=== PATIENT | female | born 1955 | race Caucasian/White ===

== ENCOUNTER 2019-03-22 12:30 | Inpatient (IN) | payer SELFPAY ==
[~2019-03-22] VITALS: Ht 157.5 cm; Wt 106.3 kg
[~2019-03-22 12:30] MED LIST: ADV1DS; ALB6.8IN; ALBU17AE3 IH; ALBU8.5H2 IH; AMLO5TAB2 PO; ASP325T; ASP81TEC PO; ATOR40TA; ATR20T; ATRV10T; BENZ200C25 PO; CITA-105 PO; CPR500T PO; CTLP20T PO; ESCI20TA2; ESCT10T; FISH OIL 1,2001 EAC1 PO; GLIP5TAB13 PO; HCT25T; HYOS0.1283 SL; IBUP-30 PO; INSASP10V; INSU100C4; INSU100V8; LANT; LEVO100T4; LEVO100T46; LEVO175T3 PO; LEVO200T39; LEVO500T2 PO; LEVO500T69 PO; LISI20TA2 PO; LISI40TA; LISI40TA PO; LORA0.5T34 PO; LRT10T; LSNP20T; LVT.1T; LVT.1T PO; METF-380 PO; MTR500T PO; MULT1TAB63 PO; NAPR-243 PO; NEBI5TAB8; OMEG-25 PO; OMG1KC PO; ONDA4TAB8 PO; PHEN200T27 PO; RSG4T; TRAM-21 PO; TRAM50TA2 PO; TRM50T PO
--- NOTE | 2019-03-22 12:40 | NUR ---
TO CT ACCOMPIED BY STAFF,
[2019-03-22 12:59] LABS: BASOPHILS # (AUTO) 0.1 10^3/uL (0.0-0.1); BASOPHILS % (AUTO) 1 % (0-10); EOSINOPHILS # (AUTO) 0.2 10^3/uL (0.0-0.3); EOSINOPHILS % (AUTO) 1 % (0-10); HEMATOCRIT 48 % (35-52); HEMOGLOBIN 16.5 G/DL (11.5-16.0); LYMPHOCYTES # (AUTO) 3.1 X 10^3 (1.0-4.0); LYMPHOCYTES % (AUTO) 18 % (12-44); MEAN CORPUSCULAR HEMOGLOBIN 29 PG (25-34); MEAN CORPUSCULAR HGB CONC 34 G/DL (32-36); MEAN CORPUSCULAR VOLUME 85 FL (80-99); MEAN PLATELET VOLUME 10.9 FL (7.4-10.4); MONOCYTES # (AUTO) 1.1 X 10^3 (0.0-1.0); MONOCYTES % (AUTO) 6 % (0-12); NEUTROPHILS % (AUTO) 74 % (42-75); PLATELET COUNT 409 10^3/uL (130-400); RED CELL DISTRIBUTION WIDTH 14.5 % (10.0-14.5); WHITE BLOOD COUNT 17.5 10^3/uL (4.3-11.0)
[2019-03-22] MEDS ORDERED: LABETALOL HCL 20 MG/4 ML VIAL IV ONE (13:00)
--- NOTE | 2019-03-22 13:02 | NUR ---
RETURN FROM CT
--- NOTE | 2019-03-22 13:02 | NUR ---
RETURN FROM CT.
--- NOTE | 2019-03-22 13:03 | Diagnostic Imaging Report ---
PROCEDURE: CT head wo r/o stroke. TECHNIQUE: Multiple contiguous axial images were obtained through the brain without the use of intravenous contrast. Auto Exposure Controls were utilized during the CT exam to meet ALARA standards for radiation dose reduction. INDICATION: Speech difficulty, stroke. COMPARISON: There is no previous study for comparison. FINDINGS: Ventricles and sulci are in the expected range. There is asymmetric low density within the deep white matter of both cerebral hemispheres which is most pronounced in the deep left frontal region. No geographic low density is seen to indicate territorial infarct. Low density is also seen adjacent to the right caudate nucleus. There is no evidence of hemorrhage. There is no abnormal mass effect or shift of midline structures. There is atherosclerotic calcification within distal internal carotid and vertebral arteries. The visualized paranasal sinuses are clear. IMPRESSION: No definite hemorrhage or other acute abnormality identified. Low density in the deep white matter of both hemispheres may be chronic in nature. MRI has greater sensitivity for ischemia in the acute setting. Dictated by: Dictated on workstation # [id number]
[2019-03-22 13:06] LABS: PROTHROMBIN TIME PATIENT 13.3 SEC (12.2-14.7)
[2019-03-22 13:10] LABS: ALANINE AMINOTRANSFERASE 22 U/L (0-55); ALBUMIN 4.5 GM/DL (3.2-4.5); ALKALINE PHOSPHATASE 100 U/L (40-136); BILIRUBIN,TOTAL 0.4 MG/DL (0.1-1.0); BUN/CREATININE RATIO 10; CALCIUM 9.7 MG/DL (8.5-10.1); CARBON DIOXIDE 26 MMOL/L (21-32); CHLORIDE 92 MMOL/L (98-107); CREATININE SERUM 1.13 MG/DL (0.60-1.30); GFR ESTIMATED 48; GLUCOSE 308 MG/DL (70-105); POTASSIUM 4.8 MMOL/L (3.6-5.0); SODIUM 130 MMOL/L (135-145); TOTAL PROTEIN 7.8 GM/DL (6.4-8.2)
[2019-03-22] MEDS ORDERED: HOLD METFORMIN - RECEIVED CONTRAST 20 ML VIAL IV SCH (13:15)
[2019-03-22] MEDS ORDERED: NS 100 ML (IVPB) BAG IV ONE (13:15)
[2019-03-22] MEDS ORDERED: IOHEXOL 350 MG/ML 100 ML (OMNIPAQUE 350) VIAL IV ONE (13:15)
[2019-03-22 13:16] LABS: BAND NEUTROPHILS 4 %; BASOPHILS % (MANUAL) 1 %; EOSINOPHILS % (MANUAL) 0 %; LYMPHOCYTES % (MANUAL) 13 %; MONOCYTES % (MANUAL) 5 %; NEUTROPHILS % (MANUAL) 77 %; RBC MORPH NORMAL
[2019-03-22 13:17] LABS: FIBRIN DEGRADATION PRODUCTS 0.66 UG/ML (0.00-0.49)
[2019-03-22 13:22] VITALS: BP 150/83
[2019-03-22] MEDS ORDERED: LACTATED RINGERS 1,000 ML IV ONE (13:24)
--- NOTE | 2019-03-22 13:37 | NUR ---
AMB TO BATHROOM WITHOUT PROBLEM
--- NOTE | 2019-03-22 13:47 | ED Neurological Problem ---
General Chief Complaint: Neuro-Stroke Like Symptoms Stated Complaint: STROKE LIKE SYMPTOMS Nursing Triage Note: AMB TO ROOM WITH FAMILY. LAST WELL TIME WAS 1130 TODAY. WAS DROPPED BY FAMILY AT [facility]. AFTER GOING HOME WAS LOOKING AT FACEBOOK AND WORDS DID NOT LOOK RIGHT. Nursing Sepsis Screen: No Definite Risk Source: patient Exam Limitations: no limitations History of Present Illness Date Seen by Provider: Mar 22, 2019 Time Seen by Provider: 12:42 Initial Comments Patient brought in by her daughter reports concerns with difficulty with communication of the patient and patient had difficulty with reading. Apparently, the patient was dropped off by her daughter at about 11:30. She called a little while later because she was having difficulty with breathing. And had difficulty with communication. She called her daughter to tolerate this who then went back to her mom's house. The daughter reports that she didn't no ricky any facial droop or weakness of any extremities but her mother was definitely having problems with communication. This continued until now. Onset approximately 45 minutes prior to arrival. Denies recent trauma or injury. Does not take blood thinners. Does have diabetes, smokes and has high blood pressure. Timing/Duration: 1 hour Severity: moderate Associated Symptoms: confusion; No fever/chills, No loss of consciousness, No nausea/vomiting, No seizures, No trouble walking, No weakness; other (word searching and speech difficulty) Allergies and Home Medications Allergies Coded Allergies: meperidine (Verified Allergy, Unknown, 08/16/13) Home Medications Albuterol 8.5 Gm Hfa.aer.ad, 2 PUFF IH Q6H PRN for SHORTNESS OF BREATH, (Reported) NEEDED FOR SHORTNESS OF BREATH Amlodipine Besylate 5 Mg Tab, 5 MG PO DAILY, (Reported) Aspirin 81 Mg Tabec, 81 MG PO DAILY, (Reported) Benzonatate 200 Mg Capsule, 1 EACH PO TID PRN for COUGH Prescribed by: WINSOME GONZALEZ on 06/01/142137 Citalopram Hydrobromide 40 Mg Tablet, 40 MG PO DAILY, (Reported) Glipizide 5 Mg Tablet, 5 MG PO BID, (Reported) WITH MEALS Hyoscyamine Sulfate 0.125 Mg Tab.subl, 1-2 TAB SL Q4H Prescribed by: WINSOME GONZALEZ on 04/15/152132 Levofloxacin 500 Mg Tab, 1 EACH PO DAILY Prescribed by: WINSOME GONZALEZ on 06/01/142137 Levofloxacin 500 Mg Tablet, 500 MG PO DAILY Prescribed by: WINSOME GONZALEZ on 04/15/152132 Levothyroxine Sodium 175 Mcg Tablet, 175 MCG PO DAILY, (Reported) Lisinopril 40 Mg Tablet, 40 MG PO DAILY, (Reported) Lorazepam 0.5 Mg Tablet, 0.5 MG PO DAILY PRN for ANXIETY, (Reported) NEEDED FOR ANXIETY Metformin Hcl 1,000 Mg Tablet, 1,000 MG PO BID, (Reported) WITH MEALS Multivitamins 1 Ea Tablet, 1 TAB PO HS, (Reported) Naproxen 500 Mg Tablet, 1 EACH PO BID FOR PAIN Prescribed by: ART RANGEL on 08/17/13 102 [place]-3 Fatty Acids/Fish Oil 1 Each Capsule, 1,200 MG PO BID, (Reported) Ondansetron 4 Mg Tab.rapdis, 4 MG PO Q4H Prescribed by: WINSOME GONZALEZ on 04/15/152132 Tramadol Hcl 50 Mg Tablet, 50 MG PO PRN May take 1-2 Every 6 hours for pain. No more than 400mg daily Prescribed by: ART RANGEL on 08/17/13 102 Tramadol Hcl 50 Mg Tablet, 50 MG PO Q4H Prescribed by: WINSOME GONZALEZ on 06/01/142137 Patient Home Medication List Home Medication List Reviewed: Yes Review of Systems Review of Systems Constitutional: see HPI; No chills, No fever Eyes: No Symptoms Reported Ears, Nose, Mouth, Throat: no symptoms reported Respiratory: cough, short of breath, wheezing Cardiovascular: No chest pain, No palpitations Gastrointestinal: No abdominal pain, No nausea, No vomiting Genitourinary: no symptoms reported Musculoskeletal: no symptoms reported Skin: no symptoms reported Psychiatric/Neurological: See HPI Endocrine: No Symptoms Reported All Other Systems Reviewed Negative Unless Noted: Yes Past Hsgrgwj-Vwgzsf-Vbpgwb Hx Past Med/Social Hx: Reviewed Nursing Past Med/Soc Hx Patient Social History Alcohol Use: Denies Use Recreational Drug Use: No Recent Foreign Travel: No Contact w/Someone Who Travel: No Recent Infectious Disease Expo: No Recent Hopitalizations: Yes (PNEUMONIA) Immunizations Up To Date Tetanus Booster (TDap): More than 5yrs PED Vaccines UTD: No Date of Pneumonia Vaccine: Jul 18, 2009 Date of Influenza Vaccine: Aug 17, 2013 Past Medical History Surgeries: Yes ( X 2 , BACK SURGERY, BMT'S X 3, ADHESION REMOVAL) Abdominal, Section, Ear Surgery, Hysterectomy, Oophorectomy, Tonsillectomy Respiratory: Yes Asthma, COPD Cardiac: Yes Hypertension Neurological: No Reproductive Disorders: Yes (UTERINE CANCER) Gastrointestinal: Yes Diverticulosis Musculoskeletal: No Endocrine: Yes Hypothyroidsim, Diabetes, Non-Insulin dep Cancer: Yes (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 Psychosocial: Yes Anxiety, Depression Integumentary: No Blood Disorders: No Family Medical History Reviewed Nursing Family Hx Cancer 03 MOTHER (LIVER CANCER) Congestive heart failure 03 FATHER Family history: Asthma 03 FATHER 09 BROTHER Family history: Cardiovascular disease 03 FATHER Family history: Thyroid disorder 03 FATHER 09 BROTHER 09 BROTHER 09 BROTHER 09 BROTHER 09 SISTER 09 SISTER 09 SISTER 09 SISTER History of - respiratory disease 03 FATHER (COPD, ASTHMA, EMPHYSEMA) 09 BROTHER 09 BROTHER 09 BROTHER 09 BROTHER 09 SISTER 09 SISTER 09 SISTER 09 SISTER Physical Exam Vital Signs Vital Signs - First Documented 03/22/19 03/22/19 12:30 13:22 Pulse 90 Resp 18 B/P (MAP) 158/120 (133) Pulse Ox 93 O2 Delivery Room Air Capillary Refill : Less Than 3 Seconds Height, Weight, BMI Height: 5'2.00" Weight: 234lbs. 4.0oz. [id number]; 42.18 BMI Method:Stated General Appearance: WD/WN, moderate distress, obese HEENT: PERRL/EOMI, pharynx normal Neck: full range of motion, supple Respiratory: no accessory muscle use, wheezing, expiration Cardiovascular: no murmur, tachycardia Peripheral Pulses: 2+ Dorsalis Pedis (R), 2+ Left Dors-Pedis (L), 2+ Radial Pulses (R), 2+ Radial Pulses (L) Gastrointestinal: non tender, soft Back: normal inspection, no CVA tenderness, no vertebral tenderness Extremities: non-tender, normal inspection Neurologic/Psychiatric: alert, oriented x 3, other (anxious) Crainal Nerves: normal hearing, other (discoordinated speech) Coordination/Gait: normal finger to nose, normal gait Motor/Sensory: no motor deficit, no sensory deficit, no pronator drift Skin: normal color, warm/dry Stroke NIH Stroke Scale Assessment Level of Consciousness: 0=Alert (0), Level of Consciousness-Questions: 0= Answers both month/age (0), LOC Commands: 0=Performs both tasks (0), Visual Driver: 0=No visual loss (0), Facial Movement (Facial Paresis): 0=Normal symmetrical mnt (0), Motor Function-Arms Right: 0=No drift (0), Motor Function-Arms Left: 0=No drift (0), Motor Function-Legs Right: 0=No drift (0), Motor Function-Legs Left: 0=No drift (0), Limb Ataxia: 0=Absent (0), Sensory: 0=Normal:no loss (0), Best Language: 0=No aphasia (0), Dysarthria: 0=Normal (0), Extinction & Inattention: 0=No abnormality (0), Total: Focused Exam Lactate Level 03/22/19 14:31: Lactic Acid Level Laboratory Tests Test 03/22/19 14:31 Progress/Results/Core Measures Results/Orders Lab Results Laboratory Tests Test 03/22/19 12:38 03/22/19 12:39 03/22/19 13:47 03/22/19 14:31 Range/Units White Blood Count 17.5 H 4.3-11.0 10^3/uL Red Blood Count 5.66 4.35-5.85 10^6/uL Hemoglobin 16.5 H 11.5-16.0 G/DL Hematocrit 48 35-52 % Mean Corpuscular Volume 85 80-99 FL Mean Corpuscular Hemoglobin 29 25-34 PG Mean Corpuscular Hemoglobin Concent 34 32-36 G/DL Red Cell Distribution Width 14.5 10.0-14.5 % Platelet Count 409 H 130-400 10^3/uL Mean Platelet Volume 10.9 H 7.4-10.4 FL Neutrophils (%) (Auto) 74 42-75 % Lymphocytes (%) (Auto) 18 12-44 % Monocytes (%) (Auto) 6 0-12 % Eosinophils (%) (Auto) 1 0-10 % Basophils (%) (Auto) 1 0-10 % Neutrophils # (Auto) 13.0 H 1.8-7.8 X 10^3 Lymphocytes # (Auto) 3.1 1.0-4.0 X 10^3 Monocytes # (Auto) 1.1 H 0.0-1.0 X 10^3 Eosinophils # (Auto) 0.2 0.0-0.3 10^3/uL Basophils # (Auto) 0.1 0.0-0.1 10^3/uL Neutrophils % (Manual) 77 % Lymphocytes % (Manual) 13 % Monocytes % (Manual) 5 % Eosinophils % (Manual) 0 % Basophils % (Manual) 1 % Band Neutrophils 4 % Blood Morphology Comment NORMAL Prothrombin Time 13.3 12.2-14.7 SEC INR Comment 1.0 0.8-1.4 Activated Partial Thromboplast Time 35 24-35 SEC D-Dimer 0.66 H 0.00-0.49 UG/ML Sodium Level 130 L 135-145 MMOL/L Potassium Level 4.8 3.6-5.0 MMOL/L Chloride Level 92 L 98-107 MMOL/L Carbon Dioxide Level 26 21-32 MMOL/L Anion Gap 12 5-14 MMOL/L Blood Urea Nitrogen 11 7-18 MG/DL Creatinine 1.13 0.60-1.30 MG/DL Estimat Glomerular Filtration Rate 48 BUN/Creatinine Ratio 10 Glucose Level 308 H 70-105 MG/DL Calcium Level 9.7 8.5-10.1 MG/DL Corrected Calcium 9.3 8.5-10.1 MG/DL Total Bilirubin 0.4 0.1-1.0 MG/DL Aspartate Amino Transf (AST/SGOT) 18 5-34 U/L Alanine Aminotransferase (ALT/SGPT) 22 0-55 U/L Alkaline Phosphatase 100 40-136 U/L Troponin I < 0.028 <0.028 NG/ML Total Protein 7.8 6.4-8.2 GM/DL Albumin 4.5 3.2-4.5 GM/DL Glucometer 291 H 70-110 MG/DL Urine Color YELLOW Urine Clarity CLEAR Urine pH 6.5 5-9 Urine Specific [place] 1.005 L 1.016-1.022 Urine Protein 3+ H NEGATIVE Urine Glucose (UA) 4+ H NEGATIVE Urine Ketones NEGATIVE NEGATIVE Urine Nitrite NEGATIVE NEGATIVE Urine Bilirubin NEGATIVE NEGATIVE Urine Urobilinogen NORMAL NORMAL MG/DL Urine Leukocyte Esterase NEGATIVE NEGATIVE Urine RBC (Auto) NEGATIVE NEGATIVE Urine RBC 0-2 /HPF Urine WBC 2-5 /HPF Urine Squamous Epithelial Cells 5-10 /HPF Urine Crystals NONE /LPF Urine Bacteria FEW H /HPF Urine Casts NONE /LPF Urine Mucus NEGATIVE /LPF Urine Culture Indicated NO My Orders Orders - DHEERAJ CASAS MD Cbc With Automated Diff (03/22/19 12:47) Protime With Inr (03/22/19 12:47) Partial Thromboplastin Time (03/22/19 12:47) Comprehensive Metabolic Panel (03/22/19 12:47) Fibrin Degradation Products (03/22/19 12:47) Troponin I (03/22/19 12:47) Ua Culture If Indicated (03/22/19 12:47) Chest 1 View, Ap/Pa Only (03/22/19 12:47) Ekg Tracing (03/22/19 12:47) Nothing By Mouth (03/22/19 Dinner) Accucheck Stat ONCE (03/22/19 12:47) Ed Iv/Invasive Line Start (03/22/19 12:47) Ed Iv/Invasive Line Start (03/22/19 12:47) Vital Signs Stroke Patient Q15M (03/22/19 12:47) O2 (03/22/19 12:47) Intake & Output 06,14,22 (03/22/19 12:47) Monitor-Rhythm Ecg Trace Only (03/22/19 12:47) Dysphagia Screening Tool (03/22/19 12:47) Lipid Panel (03/23/19 06:00) Ct Angio Head/Neck (03/22/19 12:47) I-Stat Bedside Testing (03/22/19 12:47) Manual Differential (03/22/19 12:38) Iohexol Injection (Omnipaque 350 Mg/Ml 1 (03/22/19 13:15) Received Contrast (Hold Metformin- Contr (03/22/19 13:15) Ns (Ivpb) (Sodium Chloride 0.9% Ivpb Bag (03/22/19 13:15) Lactated Ringers (Lr 1000 Ml Iv Solution (03/22/19 13:24) Amlodipine Tablet (Norvasc Tablet) (03/22/19 14:15) Lisinopril Tablet (Zestril Tablet) (03/22/19 14:15) Aspirin Chewable Tablet (Baby Aspirin Ch (03/22/19 14:15) Lactic Acid Analyzer (03/22/19 14:21) Blood Culture (03/22/19 14:21) Ceftriaxone For Iv Use (Rocephin For I (03/22/19 14:45) Medications Given in ED Current Medications Medications Dose Ordered Sig/Levi Route Start Time Stop Time Status Last Admin Dose Admin Amlodipine Besylate 5 mg ONCE ONCE PO 03/22/19 14:15 03/22/19 14:16 DC 03/22/19 14:37 5 MG Aspirin 324 mg ONCE ONCE PO 03/22/19 14:15 03/22/19 14:16 DC 03/22/19 14:37 324 MG Iohexol 75 ml ONCE ONCE IV 03/22/19 13:15 03/22/19 13:16 DC 03/22/19 13:06 75 ML Lactated Ringer's 1,000 ml @ 0 mls/hr Q0M ONCE IV 03/22/19 13:24 03/22/19 13:26 DC 03/22/19 13:50 1,000 MLS/HR Lisinopril 40 mg ONCE ONCE PO 03/22/19 14:15 03/22/19 14:16 DC 03/22/19 14:37 40 MG Sodium Chloride 100 ml ONCE ONCE IV 03/22/19 13:15 03/22/19 13:16 DC 03/22/19 13:06 80 ML Vital Signs/I&O 03/22/19 03/22/19 12:30 13:22 Pulse 90 114 Resp 18 18 B/P (MAP) 158/120 (133) 150/83 (105) Pulse Ox 93 O2 Delivery Room Air Blood Pressure Mean: 105 iStat Bedside Lab Testing Sodium (Na): 129.00 Potassium (K): 4.70 Chloride (CI): 92.00 TCO2: 25.00 Glucose (Glu): 306.00 Urea Nitrogen (BUN)/Urea: 11.00 Creatinine (Crea): 0.90 Anion Gap*: 18.00 FSBG Bedside Testing Finger Stick Blood Glucose: 291 Progress Progress Note : Progress Note Seen and evaluated. Stroke activation was initiated. Rapid glucose and chemistry assessment. Initial strep screen 1 due to difficulty with speech. No other focal deficits noted. Patient is anxious. We will get CT of the head as well as CT angiogram of the head and neck. Patient does meet TPA criteria currently but we will see how she is doing. 1310: Patient has resolved with respect to deficit and blood pressure is coming down nicely without medication we'll hold that. No indication for TPA currently as she is 0 on stroke scale and patient should be resected back to time 0 now for stroke symptoms. Pending CT angiogram and lab work. LR 1 L bolus ordered. Monitor patient. 1430: Findings reviewed. No significant findings except for right lower lobe pneumonitis which I believe may be pneumonia. Heart rate improving with fluids. Diabetes is uncontrolled and she remains hypertensive. She did give amlodipine 5 mg by mouth as well as lisinopril 40 mg by mouth which is her typical medication that she takes in the morning but missed today. TIA likely stroke symptoms resolved. I did discuss the case with Dr. Evans. She accepts patient for admission, inpatient status. Discussed with patient and family who agree with plan. Blood cultures and lactic acid ordered and Rocephin 1 g IV will be given afterwards. Initial ECG Impression Date: Mar 22, 2019 Initial ECG Impression Time: 13:29 Initial ECG Rate: 110 Initial ECG Rhythm: S.Tach Comment Sinus tachycardia with left atrial abnormality. Right ventricular hypertrophy. Left axis deviation. No evidence of ST elevation FL. Interpreted by me. Similar to previous of 13 Dec 2011 Diagnostic Imaging Diagonstic Imaging: CT Plain Films/CT/US/NM/MRI: head Comments [facility], [place] NAME: DERECK MUIR [facility] REC#: [id number] PT STATUS: REG ER : 1955 PHYSICIAN: BECKIE ARRIETA APRN ADMIT DATE: 03/22/19/ER Draft Date of Exam:03/22/19 CT HEAD WO-R/O STROKE PROCEDURE: CT head wo r/o stroke. TECHNIQUE: Multiple contiguous axial images were obtained through the brain without the use of intravenous contrast. Auto Exposure Controls were utilized during the CT exam to meet ALARA standards for radiation dose reduction. INDICATION: Speech difficulty, stroke. COMPARISON: There is no previous study for comparison. FINDINGS: Ventricles and sulci are in the expected range. There is asymmetric low density within the deep white matter of both cerebral hemispheres which is most pronounced in the deep left frontal region. No geographic low density is seen to indicate territorial infarct. Low density is also seen adjacent to the right caudate nucleus. There is no evidence of hemorrhage. There is no abnormal mass effect or shift of midline structures. There is atherosclerotic calcification within distal internal carotid and vertebral arteries. The visualized paranasal sinuses are clear. IMPRESSION: No definite hemorrhage or other acute abnormality identified. Low density in the deep white matter of both hemispheres may be chronic in nature. MRI has greater sensitivity for ischemia in the acute setting. Dictated on workstation # [id number] Dict: 03/22/19 1256 Trans: 03/22/19 1303 [facility] [id number] Interpreted by: CALISTA POWER MD Electronically signed by: Diagonstic Imaging: CT Plain Films/CT/US/NM/MRI: head, other Comments [facility] [place], [place] NAME: DERECK MUIR [facility] REC#: [id number] PT STATUS: REG ER : 1955 PHYSICIAN: DHEERAJ CASAS MD ADMIT DATE: 03/22/19/ER Draft Date of Exam:03/22/19 CT ANGIO HEAD/NECK PROCEDURE: CT angiography of the head and CT angiography of the neck with and without contrast. TECHNIQUE: Contiguous noncontrast images were obtained from the skull base through the vertex. After intravenous contrast administration, helical CT angiography of the neck was performed. Source data was reformatted into 3D MIP projections. Delayed post contrast acquisition was also obtained. Auto Exposure Controls were utilized during the CT exam to meet ALARA standards for radiation dose reduction. INDICATION: Stroke. Dysarthria. COMPARISON: CT head without contrast 03/22/2019. FINDINGS: Noncontrast head CT was not repeated. Delayed postcontrast imaging of the head demonstrates no evidence of a territorial infarction. Low-attenuation changes in the deep white matter of the right frontal lobe and posterior left frontal lobe are age indeterminate. No abnormal intracranial enhancement. There remains no evidence of large intracranial hemorrhage. No hydrocephalus or extra-axial fluid collections. CTA demonstrates conventional aortic arch. Atherosclerotic calcifications result in less than 50% narrowing of the cavernous ICAs bilaterally. There is approximately 50% narrowing of the distal left vertebral artery just before its confluence with the basilar. The basilar, bilateral common carotid, internal carotid, right vertebral, bilateral anterior cerebral, middle cerebral, and posterior cerebral arteries are widely patent without evidence of aneurysm or dissection. The dural venous sinuses are patent where seen. No acute CT findings in the cervical spine. Moderate spondylotic changes. No evidence of high-grade spinal canal narrowing. The visualized paravertebral soft tissues are unremarkable. IMPRESSION: 1. Approximately 50% narrowing of the distal left vertebral artery just before its confluence with the basilar appears chronic. 2. Atherosclerotic disease results in less than 50% narrowing of the cavernous ICAs bilaterally. 3. No other high-grade narrowing, aneurysm, or dissection involving the major arteries in the head and neck. 4. Low-attenuation changes in the deep white matter of both frontal lobes are age indeterminate. This could be further investigated with MRI. Dictated on workstation # [id number] Dict: 03/22/19 1315 Trans: 03/22/19 1346 [id number] Interpreted by: SARAN TOSCANO MD Electronically signed by: [facility] Imaging: Xray Plain Films/CT/US/NM/MRI: chest Comments NAME: DERECK MUIR [facility] REC#: [id number] PT STATUS: REG ER : 1955 PHYSICIAN: DHEERAJ CASAS MD ADMIT DATE: 03/22/19/ER Signed Date of Exam: 03/22/19 CHEST 1 VIEW, AP/PA ONLY INDICATION: Fall and confusion. COMPARISON: None. TECHNIQUE: 04/15/15 FINDINGS: There is cardiomegaly. Mediastinum is unremarkable. There is some right perihilar atelectasis and/or pneumonitis. IMPRESSION: Cardiomegaly and some right perihilar atelectasis and/or pneumonitis. Dictated by: Dictated on workstation # [id number] Dict: 03/22/19 1407 Trans: 03/22/19 142 Interpreted by: ANDRIA RODRIGUEZ MD Electronically signed by: ANDRIA RODRIGUEZ MD 03/22/19 1427 Departure Communication (Admissions) Time/Spoke to Admitting Phy: 14:30 Impression Primary Impression: Pneumonia involving right lung Qualified Codes: J18.9 - Pneumonia, unspecified organism Additional Impressions: Uncontrolled hypertension Uncontrolled type 2 diabetes mellitus Qualified Codes: E11.65 - Type 2 diabetes mellitus with hyperglycemia TIA (transient ischemic attack) Dehydration Disposition: ADMITTED INPATIENT Condition: Stable Admissions Decision to Admit Reason: Admit from ER (General) Decision to Admit/Date: Mar 22, 2019 Time/Decision to Admit Time: 14:30 Departure-Patient Inst. Referrals: [facility] (PCP/Family) Primary Care Physician DHEERAJ CASAS MD Mar 22, 2019 13:47
[2019-03-22 13:55] LABS: BILIRUBIN,URINE NEGATIVE (NEGATIVE); CLARITY,URINE CLEAR; COLOR,URINE YELLOW; GLUCOSE, URINE (UA) 4+ (NEGATIVE); KETONES,URINE NEGATIVE (NEGATIVE); LEUKOCYTE ESTERASE ,URINE NEGATIVE (NEGATIVE); NITRITE,URINE NEGATIVE (NEGATIVE); PH,URINE 6.5 (5-9); PROTEIN,URINE 3+ (NEGATIVE); UROBILINOGEN,URINE NORMAL (NORMAL)
[2019-03-22 14:03] LABS: BACTERIA,URINE FEW /HPF; RBC,URINE 0-2 /HPF
--- NOTE | 2019-03-22 14:14 | Diagnostic Imaging Report ---
INDICATION: Fall and confusion. COMPARISON: None. TECHNIQUE: 04/15/15 FINDINGS: There is cardiomegaly. Mediastinum is unremarkable. There is some right perihilar atelectasis and/or pneumonitis. IMPRESSION: Cardiomegaly and some right perihilar atelectasis and/or pneumonitis. Dictated by: Dictated on workstation # [id number]
[2019-03-22] MEDS ORDERED: amLODIPine 5 MG (NORVASC) TAB PO ONE (14:15)
[2019-03-22] MEDS ORDERED: lisINopril 20 MG (PRINIVIL) TABLET PO ONE (14:15)
[2019-03-22] MEDS ORDERED: ASPIRIN 81 MG CHEW (CHILDREN'S ASA) PO ONE (14:15)
[2019-03-22] MEDS ORDERED: cefTRIAXone FOR IV USE 1,000 MG in WATER (STERILE) FOR INJECTION 10 ML IV ONE (14:45)
--- NOTE | 2019-03-22 14:53 | NUR ---
CALLED FOR A ROOM
[2019-03-22 15:45] VITALS: BP 149/93
--- NOTE | 2019-03-22 16:06 | NUR ---
DERECK MUIR admitted to room 412-1, with an admitting diagnosis of pneumonia, hypertension, TIA, on 03/22/19 from ED via stretcher, accompanied by staff. DERECK MUIR introduced to surroundings, call light, bed controls, phone, TV, temperature control, lights, meal times, smoking policy, visitor policy, side rail policy, bathrooms and showers. Patient Rights given to patient in the handbook. DERECK MUIR verbalizes understanding that [facility] is not responsible for the loss or damage to any personal effects or valuables that are kept in the patients possession during their hospitalization. The following Patient Care Plans were discussed with the patient: Discharge Planning, medications,pain management, and dehydration. DERECK MUIR verbalizes understanding of Interdisciplinary Patient Education. Patient and/or family were informed about the Rapid Response Team and its purpose.
[2019-03-22] MEDS ORDERED: ONDANSETRON 4 MG/2 ML (SDV) Z0FRAN IV PRN (16:15)
[2019-03-22] MEDS ORDERED: AZITHROMYCIN 500 MG/NS 250 ML IVPB IV NR ×2 (16:15)
[2019-03-22] MEDS: NS IV 1000 ML 1,000 ML IV SCH (16:36)
[2019-03-22] MEDS ORDERED: ENOXAPARIN 40 MG/0.4 ML (LOVENOX) SYR SQ SCH (16:45)
[2019-03-22 17:22] VITALS: BP 158/120
[2019-03-22] MEDS: ENOXAPARIN 40 MG/0.4 ML (LOVENOX) SYR SC SCH (17:41)
[2019-03-22] MEDS: RT-ALBUTEROL SULF 2.5 MG/3 ML PRE-MIX VIAL INH SCH ×2 (18:07→22:37)
[2019-03-22 19:36] VITALS: BP 128/88
[2019-03-22] MEDS ORDERED: RT-ALBUTEROL SULF 2.5 MG/3 ML PRE-MIX VIAL INH PRN (20:00)
[2019-03-22] MEDS: inSUlin ASPART (NovoLOG) 1 UNIT/0.01 ML (CHARGE PER UNIT) SC SCH (21:32)
[2019-03-23 00:10] VITALS: BP 159/78
[2019-03-23] MEDS: RT-ALBUTEROL SULF 2.5 MG/3 ML PRE-MIX VIAL INH SCH ×3 (00:52→11:19)
[2019-03-23 04:00] VITALS: BP 150/83
[2019-03-23] MEDS: ENOXAPARIN 40 MG/0.4 ML (LOVENOX) SYR SC SCH ×2 (04:52→17:18)
[2019-03-23 07:00] LABS: BASOPHILS # (AUTO) 0.1 10^3/uL (0.0-0.1); BASOPHILS % (AUTO) 1 % (0-10); EOSINOPHILS # (AUTO) 0.3 10^3/uL (0.0-0.3); EOSINOPHILS % (AUTO) 2 % (0-10); HEMATOCRIT 43 % (35-52); HEMOGLOBIN 14.4 G/DL (11.5-16.0); LYMPHOCYTES # (AUTO) 2.8 X 10^3 (1.0-4.0); LYMPHOCYTES % (AUTO) 22 % (12-44); MEAN CORPUSCULAR HEMOGLOBIN 29 PG (25-34); MEAN CORPUSCULAR HGB CONC 34 G/DL (32-36); MEAN CORPUSCULAR VOLUME 86 FL (80-99); MEAN PLATELET VOLUME 10.6 FL (7.4-10.4); MONOCYTES % (AUTO) 8 % (0-12); NEUTROPHILS # (AUTO) 8.6 X 10^3 (1.8-7.8); NEUTROPHILS % (AUTO) 68 % (42-75); PLATELET COUNT 363 10^3/uL (130-400); RED CELL DISTRIBUTION WIDTH 14.7 % (10.0-14.5); WHITE BLOOD COUNT 12.7 10^3/uL (4.3-11.0)
[2019-03-23 07:25] LABS: ALANINE AMINOTRANSFERASE 18 U/L (0-55); ALBUMIN 3.8 GM/DL (3.2-4.5); ALKALINE PHOSPHATASE 91 U/L (40-136); BILIRUBIN,TOTAL 0.3 MG/DL (0.1-1.0); BUN/CREATININE RATIO 11; CALCIUM 9.4 MG/DL (8.5-10.1); CARBON DIOXIDE 26 MMOL/L (21-32); CHLORIDE 100 MMOL/L (98-107); CHOLESTEROL 212 MG/DL (< 200); GFR ESTIMATED > 60; GLUCOSE 176 MG/DL (70-105); HDL CHOLESTEROL 40 MG/DL (40-60); POTASSIUM 3.9 MMOL/L (3.6-5.0); SODIUM 134 MMOL/L (135-145); TOTAL PROTEIN 6.3 GM/DL (6.4-8.2); TRIGLYCERIDES 189 MG/DL (<150); VLDL CHOLESTEROL 38 MG/DL (5-40)
[2019-03-23] MEDS: inSUlin ASPART (NovoLOG) 1 UNIT/0.01 ML (CHARGE PER UNIT) SC SCH ×4 (07:32→21:22)
[2019-03-23 07:36] VITALS: BP 163/73
[2019-03-23] MEDS: AZITHROMYCIN 250 MG TAB (ZITHROMAX) PO SCH (08:20)
[2019-03-23] MEDS ORDERED: lisINopril 40 MG (PRINIVIL) TABLET PO SCH (09:00)
--- NOTE | 2019-03-23 09:11 | History & Physical ---
ROGERS ORTIZ,MED STUDENT 03/23/19 0911: HPI History of Present Illness: 63 year old female presented to the ED 03/22 with difficulty communicating and reading. She states it was late morning and she was sitting at home on Facebook on her phone when she noticed she could not read the words, she then tried to read several items around the house including bills, newspaper, etc and could not read them. Iza then called her daughter who came to her house within 5 minutes. Iza states that within that time she developed a problem with speech and was unable to tell her daughter what was wrong. She states she knew what she wanted to say but the words were coming out as nonsense. The confusion continued and worsened as she got to the hospital. Once she was at the hospital she states she was began improving. From start to finish she states the episode lasted less than 1 hour before she was back to her baseline. She denies any weakness, numbness/tingling, shortness of breath, chest pain, cough. She denies any recent illnesses or falls. She currently lives at home alone and ambulates with a cane. Source: patient Exam Limitations: no limitations Date seen by provider: Mar 23, 2019 Time Seen by Provider: 11:45 Attending Physician Pedrito Evans MD [facility] Consult Date of Admission Mar 22, 2019 at 14:39 Home Medications Home Medications Reviewed patient Home Medication Reconciliation performed by pharmacy medication reconciliations master control technician and/or nursing. Patients Allergies have been reviewed. Allergies Coded Allergies: meperidine (Verified Allergy, Unknown, 08/16/13) PPU-[id number]-Rrfrkb Hx Patient Social History Alcohol Use: Denies Use Recreational Drug Use: No Smoking Status: Current Everyday Smoker (1/2-1 pack per day) Type Used: Cigarettes Recent Foreign Travel: No Contact w/other who traveled: No Recent Hopitalizations: Yes (PNEUMONIA) Recent Infectious Disease Expo: No Immunizations Up To Date Tetanus Booster (TDap): More than 5yrs Date of Pneumonia Vaccine: Jul 18, 2009 Date of Influenza Vaccine: Aug 17, 2013 Past Medical History MedHx: HTN high cholesterol hypothyroid asthma DMII uterine cancer SurgHx: tonsilectomy as infant PET-5th and 6th grade 2 c-sections 1974,1976 tubal ligation hysterectomy 1988 cyctetomy R breast Family Medical History Significant Family History: Asthma, Heart Disease (father (CHF)), Cancer (mother (liver cancer)), COPD, Diabetes Family History: Cancer 03 MOTHER (LIVER CANCER) Congestive heart failure 03 FATHER Family history: Asthma 03 FATHER 09 BROTHER Family history: Cardiovascular disease 03 FATHER Family history: Thyroid disorder 03 FATHER 09 BROTHER 09 BROTHER 09 BROTHER 09 BROTHER 09 SISTER 09 SISTER 09 SISTER 09 SISTER History of - respiratory disease 03 FATHER (COPD, ASTHMA, EMPHYSEMA) 09 BROTHER 09 BROTHER 09 BROTHER 09 BROTHER 09 SISTER 09 SISTER 09 SISTER 09 SISTER Review of Systems ([facility]) Constitutional: No chills, No fever, No weakness EENTM: No blurred vision, No double vision Respiratory: No cough, No short of breath Cardiovascular: No chest pain Gastrointestinal: No abdominal pain, No constipation, No diarrhea, No nausea, No vomiting Musculoskeletal: joint pain (chronic); No muscle pain Skin: No rash Psychiatric/Neurological: Headache (mild); Denies Numbness, Denies Paresthesia, Denies Tingling, Denies Weakness; Other (confusion (trouble communicating/speaking) - now resolved) Reviewed Test Results Reviewed Test Results Lab Laboratory Tests 03/22/19 12:38: White Blood Count 17.5H, Red Blood Count 5.66, Hemoglobin 16.5H, Hematocrit 48, Mean Corpuscular Volume 85, Mean Corpuscular Hemoglobin 29, Mean Corpuscular Hemoglobin Concent 34, Red Cell Distribution Width 14.5, Platelet Count 409H, Mean Platelet Volume 10.9H, Neutrophils (%) (Auto) 74, Lymphocytes (%) (Auto) 18, Monocytes (%) (Auto) 6, Eosinophils (%) (Auto) 1, Basophils (%) (Auto) 1, Neutrophils # (Auto) 13.0H, Lymphocytes # (Auto) 3.1, Monocytes # (Auto) 1.1H, Eosinophils # (Auto) 0.2, Basophils # (Auto) 0.1, Neutrophils % (Manual) 77, Lymphocytes % (Manual) 13, Monocytes % (Manual) 5, Eosinophils % (Manual) 0, Basophils % (Manual) 1, Band Neutrophils 4, Blood Morphology Comment NORMAL, Prothrombin Time 13.3, INR Comment 1.0, Activated Partial Thromboplast Time 35, D-Dimer 0.66H, Sodium Level 130L, Potassium Level 4.8, Chloride Level 92L, Carbon Dioxide Level 26, Anion Gap 12, Blood Urea Nitrogen 11, Creatinine 1.13, Estimat Glomerular Filtration Rate 48, BUN/Creatinine Ratio 10, Glucose Level 308H, Calcium Level 9.7, Corrected Calcium 9.3, Total Bilirubin 0.4, Aspartate Amino Transf (AST/SGOT) 18, Alanine Aminotransferase (ALT/SGPT) 22, Alkaline Phosphatase 100, Troponin I < 0.028, Total Protein 7.8, Albumin 4.5 03/22/19 12:39: Glucometer 291H 03/22/19 13:47: Urine Color YELLOW, Urine Clarity CLEAR, Urine pH 6.5, Urine Specific [place] 1.005L, Urine Protein 3+H, Urine Glucose (UA) 4+H, Urine Ketones NEGATIVE, Urine Nitrite NEGATIVE, Urine Bilirubin NEGATIVE, Urine Urobilinogen NORMAL, Urine Leukocyte Esterase NEGATIVE, Urine RBC (Auto) NEGATIVE, Urine RBC 0-2, Urine WBC 2-5, Urine Squamous Epithelial Cells 5-10, Urine Crystals NONE, Urine Bacteria FEWH, Urine Casts NONE, Urine Mucus NEGATIVE, Urine Culture Indicated NO 03/22/19 14:31: Lactic Acid Level 2.61*H 03/22/19 16:35: Lactic Acid Level 1.67 03/22/19 19:40: Glucometer 220H 03/23/19 05:48: Glucometer 183H 03/23/19 06:25: White Blood Count 12.7H, Red Blood Count 4.99, Hemoglobin 14.4, Hematocrit 43, Mean Corpuscular Volume 86, Mean Corpuscular Hemoglobin 29, Mean Corpuscular Hemoglobin Concent 34, Red Cell Distribution Width 14.7H, Platelet Count 363, Mean Platelet Volume 10.6H, Neutrophils (%) (Auto) 68, Lymphocytes (%) (Auto) 22, Monocytes (%) (Auto) 8, Eosinophils (%) (Auto) 2, Basophils (%) (Auto) 1, Neutrophils # (Auto) 8.6H, Lymphocytes # (Auto) 2.8, Monocytes # (Auto) 1.0, Eosinophils # (Auto) 0.3, Basophils # (Auto) 0.1, Sodium Level 134L, Potassium Level 3.9, Chloride Level 100, Carbon Dioxide Level 26, Anion Gap 8, Blood Urea Nitrogen 8, Creatinine 0.70, Estimat Glomerular Filtration Rate > 60, BUN/Creatinine Ratio 11, Glucose Level 176H, Calcium Level 9.4, Corrected Calcium 9.6, Total Bilirubin 0.3, Aspartate Amino Transf (AST/SGOT) 15, Alanine Aminotransferase (ALT/SGPT) 18, Alkaline Phosphatase 91, Total Protein 6.3L, Albumin 3.8, Triglycerides Level 189H, Cholesterol Level 212H, LDL Cholesterol Direct 150H, VLDL Cholesterol 38, HDL Cholesterol 40 03/23/19 09:36: Glucometer 234H Radiology Head CT: No definite hemorrhage or other acute abnormality identified. Low density in the deep white matter of both hemispheres may be chronic in nature. MRI has greater sensitivity for ischemia in the acute setting. Head CTA: 1. Approximately 50% narrowing of the distal left vertebral artery just before its confluence with the basilar appears chronic. 2. Atherosclerotic disease results in less than 50% narrowing of the cavernous ICAs bilaterally. 3. No other high-grade narrowing, aneurysm, or dissection involving the major arteries in the head and neck. 4. Low-attenuation changes in the deep white matter of both frontal lobes are age indeterminate. This could be further investigated with MRI. CXR: Cardiomegaly and some right perihilar atelectasis and/or pneumonitis Brain MRI: 1. Small acute infarct in right posterior parietal-occipital lobe in the region of the posterior centrum semiovale. No acute hemorrhage is identified. There are findings of chronic microvascular ischemia. Physical Exam-([facility]) Physical Exam Vital Signs VS - Last 72 Hours, by Label 03/22/19 03/22/19 03/22/19 03/22/19 12:30 13:22 15:37 15:45 Temp 96.3 Pulse 90 114 104 95 Resp 18 18 18 18 B/P (MAP) 158/120 (133) 150/83 (105) 160/83 (108) 149/93 Pulse Ox 93 93 95 O2 Delivery Room Air Room Air Room Air 03/22/19 03/22/19 03/22/19 03/22/19 15:45 16:14 17:22 18:07 Temp 96.3 Pulse 95 90 Resp 18 B/P (MAP) 149/93 (111) Pulse Ox 95 93 91 O2 Delivery Room Air Room Air Room Air FiO2 21 03/22/19 03/22/19 03/23/19 03/23/19 19:36 20:30 00:10 00:52 Temp 97.9 96.8 Pulse 106 84 Resp 22 20 B/P (MAP) 128/88 (101) 159/78 (105) Pulse Ox 91 94 90 91 O2 Delivery Room Air Room Air Room Air Room Air 03/23/19 03/23/19 03/23/19 03/23/19 04:00 07:01 07:36 08:00 Temp 98.0 97.8 Pulse 93 107 Resp 18 22 B/P (MAP) 150/83 (105) 163/73 (103) Pulse Ox 91 91 94 O2 Delivery Room Air Room Air Room Air Room Air 03/23/19 03/23/19 11:19 12:57 Temp 96.8 Pulse 92 Resp 20 B/P (MAP) 161/74 (103) Pulse Ox 93 91 O2 Delivery Room Air Room Air Capillary Refill : Less Than 3 Seconds General Appearance: WD/WN, no apparent distress HEENT: PERRL/EOMI Neck: non-tender, full range of motion Respiratory: chest non-tender, no respiratory distress, no accessory muscle use, wheezing (expiratory ) Cardiovascular: regular rate, rhythm, no murmur Gastrointestinal: normal bowel sounds, non tender, soft, no organomegaly; No guarding, No rebound Extremities: no pedal edema Neurologic/Psychiatric: 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 Continue antibiotics for pneumonia. Begin DVT prophylaxis. Continue IVF. Echo ordered for cardiac pathology. Begin cholesterol medication (statin) and antiplatelet. Continue to monitor blood sugar and HTN Clinical Quality Measures DVT/VTE Risk/Contraindication: Risk Factor Score Per Nursin RFS Level Per Nursing on Admit: 4+=Very High PEDRITO EVANS MD 03/23/19 2016: Home Medications Allergies Coded Allergies: meperidine (Verified Allergy, Unknown, 08/16/13) [id number]-Auerfw Hx Family Medical History Family History: Cancer 03 MOTHER (LIVER CANCER) Congestive heart failure 03 FATHER Family history: Asthma 03 FATHER 09 BROTHER Family history: Cardiovascular disease 03 FATHER Family history: Thyroid disorder 03 FATHER 09 BROTHER 09 BROTHER 09 BROTHER 09 BROTHER 09 SISTER 09 SISTER 09 SISTER 09 SISTER History of - respiratory disease 03 FATHER (COPD, ASTHMA, EMPHYSEMA) 09 BROTHER 09 BROTHER 09 BROTHER 09 BROTHER 09 SISTER 09 SISTER 09 SISTER 09 SISTER Physical Exam-([facility]) Physical Exam General Appearance: WD/WN, no apparent distress Respiratory: lungs clear, normal breath sounds, no respiratory distress, no accessory muscle use Cardiovascular: regular rate, rhythm, no murmur Gastrointestinal: normal bowel sounds, non tender, soft Extremities: no pedal edema Neurologic/Psychiatric: alert, normal mood/affect, oriented x 3; No facial droop Skin: normal color, warm/dry Assessment/Plan Assessment/Plan Admission Status: Inpatient Order (span 2 midnights) Reason for Inpatient Admission: Ischemic stroke, pneumonia, hyperglycemia (1) Stroke Status: Acute Assessment & Plan: CTA with 50% narrowing of distal left vertebral artery appears chronic, atherosclerosis with less than 50% narrowing in internal carotids, no other high grade narrowing, aneurysm or dissection. MRI confirmed small are of acute ischemia in right parietal lobe. Completely resolved symptoms with no treatment. -Plavix, atorvastatin, echocardiogram, aggressive glucose control, improve blood pressure control, strongly encouraged smoking cessation. Likely needs event monitor outpatient to eval for unrecognized a fib. Qualifiers: Qualified Codes: I63.9 - Cerebral infarction, unspecified (2) Leukocytosis Status: Acute Assessment & Plan: Possibly secondary to infection, improved with ceftriaxone and azithromycin. Monitor. (3) Hyponatremia Status: Acute Assessment & Plan: Improving with IVF overnight, continue to monitor. (4) Uncontrolled hypertension Status: Acute Assessment & Plan: Resume home hydrochlorothiazide, amlodipine and lisinopril. Adjust as needed. (5) Pneumonia involving right lung Status: Acute Assessment & Plan: Per x-ray and with leukocytosis, however she is essentially asymptomatic. Leukocytosis improved with abx, will continue ceftriaxone and azithromycin for CAP. Qualifiers: Qualified Codes: J18.9 - Pneumonia, unspecified organism (6) Uncontrolled type 2 diabetes mellitus Status: Acute Assessment & Plan: Hold metformin due to contrast, hold pioglitazone due to interaction with Plavix. May need regimen changed for d/c. Sliding scale insulin, diabetic diet. Qualifiers: Qualified Codes: E11.65 - Type 2 diabetes mellitus with hyperglycemia (7) Tobacco abuse Status: Chronic Assessment & Plan: Strongly encouraged cessation. (8) DVT prophylaxis Status: Acute Assessment & Plan: Enoxaparin Supervisory-Addendum Brief Verification & Attestation Participated in pt care: history, MDM, physical Personally performed: exam, history, MDM Care discussed with: Medical Student Procedures: n/a Verification and Attestation of Medical Student E/M Service A medical student performed and documented this service in my presence. I reviewed and verified all information documented by the medical student and made modifications to such information, when appropriate. I personally performed the physical exam and medical decision making. See problem list for my assessment and plan. Pedrito Evans, Mar 23, 2019,20:20 ROGERS ORTIZ,MED STUDENT Mar 23, 2019 09:11 PEDRITO EVANS MD Mar 23, 2019 20:16
[2019-03-23] MEDS: amLODIPine 5 MG (NORVASC) TAB PO SCH (10:12)
[2019-03-23] MEDS: NS IV 1000 ML 1,000 ML IV SCH (10:15)
[2019-03-23] MEDS ORDERED: LEVO175T5 PO (10:24)
[2019-03-23] MEDS ORDERED: LISI40TA PO (10:24)
[2019-03-23] MEDS ORDERED: RT-ALBUINH INH (10:25)
[2019-03-23] MEDS ORDERED: CITA40TA19 PO (10:25)
[2019-03-23] MEDS ORDERED: METF-399 PO (10:25)
[2019-03-23] MEDS ORDERED: HYDR25TA4 PO (10:25)
[2019-03-23] MEDS ORDERED: PIOG30TA71 PO (10:25)
[2019-03-23] MEDS ORDERED: OMG1KC PO (10:33)
[2019-03-23] MEDS ORDERED: MULT1TAB69 PO (10:33)
[2019-03-23] MEDS ORDERED: CHOL10007 PO (10:33)
[2019-03-23] MEDS ORDERED: ASPI-983 PO (10:33)
--- NOTE | 2019-03-23 10:35 | NUR ---
CALLED [facility] FOR A LIST OF RECENTLY FILLED MEDICATIONS. I WENT OVER THAT LIST WITH THE PATIENT AND SHE VERIFIED HOW SHE TAKES THEM. APOTHECARE FILLED: 03-06-19 LISINOPRIL 40MG DAILY #30 03-06-19 LEVOTHYROXINE 175MCG DAILY #30 03-06-19 HYDROCHLOROTHIAZIDE 25MG DAILY #30 03-06-19 CITALOPRAM 40MG DAILY #30 03-06-19 METFORMIN 1000MG BID WITH MEALS #60 03-06-19 PIOGLITAZONE 30MG DAILY #30 03-06-19 PROVENTIL HFA PRN OTC MEDS: ASPIRIN 81MG DAILY VITAMIN D TID FISH OIL DAILY MTV HS
--- NOTE | 2019-03-23 12:03 | NUR ---
Initial visit with the pt (Nadine) who shared about her life-long challenges with Asthma. She said she was in the hospital so consistently as a child that she knew the medical staff better than her own family. I offered active listening, an affirmed the resilience and positive coping demonstrated by the pt. The pt's daughter, Ofelia arrived with newly purchased clothes and slippers for the pt. I engaged them both in rapport building and offered follow up support as needed. The pt is Nondenominational. She did not share much about her personal ethel this visit.
--- NOTE | 2019-03-23 12:24 | Diagnostic Imaging Report ---
PROCEDURE: MR imaging of the brain without contrast. TECHNIQUE: Multiplanar, multisequence MR imaging of the brain was performed without contrast. INDICATION: Abnormal CT scan demonstrating deep white matter changes. COMPARISON: Correlation is made with CT study from 03/22/2019. FINDINGS: Diffusion-weighted images demonstrate a small focus of diffusion restriction in the high right posterior parietal-occipital lobe white matter in the region of the centrum semiovale. Area of diffusion restriction measures 11 mm. No other areas of diffusion restriction are seen. The normal expected flow-voids within the carotid siphons are seen. Extensive periventricular and subcortical white matter signal abnormalities are noted consistent with chronic microvascular ischemia. No sulcal effacement or midline shift is seen. No acute intra-axial or extra-axial hemorrhage is detected. The corpus callosum is unremarkable. Sella and parasellar structures are unremarkable. IMPRESSION: 1. Small acute infarct in right posterior parietal-occipital lobe in the region of the posterior centrum semiovale. No acute hemorrhage is identified. There are findings of chronic microvascular ischemia. Dictated by: Dictated on workstation # [id number]
[2019-03-23 12:57] VITALS: BP 161/74
[2019-03-23] MEDS ORDERED: RT-ALBUTEROL SULF 2.5 MG/3 ML PRE-MIX VIAL INH PRN (13:15)
[2019-03-23] MEDS ORDERED: cefTRIAXone 1,000 MG/SWFI 10 ML IV PUSH IV SCH ×2 (14:00)
--- NOTE | 2019-03-23 14:28 | NUR ---
Inpatient rehab referral Received order to evaluate patient for admission to the inpatient rehab unit. Patient currently does not have orders for PT or OT. Discussed with RN. RN reports patient is up ad maria guadalupe in her room. If patient is up ad maria guadalupe in her room without difficulty, she would be too functional for inpatient rehab. Thank you for the referral.
[2019-03-23 16:00] VITALS: BP 143/71
[2019-03-23] MEDS ORDERED: MULTIVIT W/MINERALS TAB (THERAGRAN M) PO SCH (17:00)
[2019-03-23 20:00] VITALS: BP 128/61
[2019-03-23] MEDS ORDERED: NON-FORMULARY MEDICATION 1 EA EA (Cholecalciferol (Vitamin D3) (Vitamin D3) 1,000 UNIT) PO SCH (21:00)
[2019-03-23] MEDS: VITAMIN D3 1,000 UNITS (CHOLECALCIFEROL) TABLET PO SCH (21:20)
[2019-03-24] VITALS: BP 156/63
[2019-03-24 04:00] VITALS: BP 167/84
[2019-03-24] MEDS: ENOXAPARIN 40 MG/0.4 ML (LOVENOX) SYR SC SCH (06:13)
--- NOTE | 2019-03-24 06:21 | NUR ---
reassessment of iv, leaking. removed iv tip intact from left fa. patient refused new iv at this time. patient believes will be going home today.
[2019-03-24] MEDS: inSUlin ASPART (NovoLOG) 1 UNIT/0.01 ML (CHARGE PER UNIT) SC SCH ×2 (06:28→09:45)
[2019-03-24] MEDS ORDERED: LEVOTHYROXINE 100 MCG (LEVOTHROID) TAB PO SCH (06:30)
[2019-03-24] MEDS ORDERED: LEVOTHYROXINE 75 MCG (LEVOTHROID) TABLET PO SCH (06:30)
[2019-03-24 06:48] LABS: HEMOGLOBIN 14.9 G/DL (11.5-16.0); MEAN PLATELET VOLUME 10.8 FL (7.4-10.4); RED CELL DISTRIBUTION WIDTH 14.5 % (10.0-14.5); WHITE BLOOD COUNT 11.1 10^3/uL (4.3-11.0)
[2019-03-24] MEDS ORDERED: PIOGLITAZONE 30MG (ACTOS) TAB PO SCH (07:00)
[2019-03-24 07:19] LABS: BUN/CREATININE RATIO 13; CALCIUM 9.8 MG/DL (8.5-10.1); CARBON DIOXIDE 25 MMOL/L (21-32); CHLORIDE 100 MMOL/L (98-107); CREATININE SERUM 0.72 MG/DL (0.60-1.30); GFR ESTIMATED > 60; GLUCOSE 176 MG/DL (70-105); POTASSIUM 4.4 MMOL/L (3.6-5.0); SODIUM 135 MMOL/L (135-145)
[2019-03-24 07:44] VITALS: BP 149/73
[2019-03-24] MEDS: NS IV 1000 ML 1,000 ML IV SCH (08:16)
[2019-03-24] MEDS: AZITHROMYCIN 250 MG TAB (ZITHROMAX) PO SCH (08:17)
[2019-03-24] MEDS: VITAMIN D3 1,000 UNITS (CHOLECALCIFEROL) TABLET PO SCH (08:17)
[2019-03-24] MEDS: amLODIPine 5 MG (NORVASC) TAB PO SCH (08:18)
[2019-03-24] MEDS ORDERED: NON-FORMULARY MEDICATION 1 EA EA (Pioglitazone HCl 30 MG) PO SCH (09:00)
[2019-03-24] MEDS ORDERED: ASPIRIN E.C. 81 MG (ECOTRIN) TAB PO SCH (09:00)
[2019-03-24] MEDS ORDERED: NON-FORMULARY MEDICATION 1 EA EA (Hydrochlorothiazide 25 MG) PO SCH (09:00)
[2019-03-24] MEDS ORDERED: NON-FORMULARY MEDICATION 1 EA EA (Citalopram Hydrobromide (Celexa) 40 MG) PO SCH (09:00)
[2019-03-24] MEDS ORDERED: OMEGA 3 (FISH OIL) 1000 MG CAP PO SCH (09:00)
[2019-03-24] MEDS ORDERED: HYDROCHLOROTHIAZIDE 25 MG (HCTZ) TAB PO SCH (09:00)
[2019-03-24] MEDS ORDERED: CLOPIDOGREL 75 MG (PLAVIX) TABLET PO SCH (09:00)
[2019-03-24] MEDS ORDERED: NON-FORMULARY MEDICATION 1 EA EA (Levothyroxine Sodium 175 MCG) PO SCH (09:00)
[2019-03-24] MEDS ORDERED: lisINopril 40 MG (PRINIVIL) TABLET PO SCH (09:00)
--- NOTE | 2019-03-24 09:39 | NUR ---
DR BARROW ON FLOOR. NEW ORDER TO LEAVE IV OUT AND DC Q4 NEURO
[2019-03-24] MEDS ORDERED: CLOP75TA28 PO (10:43)
[2019-03-24] MEDS ORDERED: ATOR40TA PO (10:43)
--- NOTE | 2019-03-24 10:55 | Discharge Summary ---
Diagnosis/Chief Complaint Date of Admission Mar 22, 2019 at 14:39 Date of Discharge Discharge Date: Mar 24, 2019 Primary Care Center/[facility] Discharge Summary Discharge Physical Exam Allergies: Coded Allergies: meperidine (Verified Allergy, Unknown, 08/16/13) Vitals & I&Os Vital Signs Date Time Temp Pulse Resp B/P (MAP) Pulse Ox O2 Delivery O2 Flow Rate FiO2 03/24/19 08:00 Room Air 03/24/19 07:44 97.1 88 22 149/73 (98) 93 03/22/19 17:22 21 General Appearance: No Apparent Distress Respiratory: Chest Non Tender, Lungs Clear, Normal Breath Sounds, No Accessory Muscle Use, No Respiratory Distress Cardiovascular: Regular Rate, Rhythm, No Edema, No Gallop, No JVD, Normal Peripheral Pulses, Systolic Murmur (Soft 1 to 2/6 systolic ejection murmur heard best over the aortic Flow track without evidence for pulsus parvus or tardus.) Hospital Course Was the Problem List Reviewed?: Yes 63 year old female presented to the ED 03/22 with difficulty communicating and reading. She states it was late morning and she was sitting at home on Facebook on her phone when she noticed she could not read the words, she then tried to read several items around the house including bills, newspaper, etc and could not read them. Iza then called her daughter who came to her house within 5 minutes. Iza states that within that time she developed a problem with speech and was unable to tell her daughter what was wrong. She states she knew what she wanted to say but the words were coming out as nonsense. The confusion continued and worsened as she got to the hospital. Once she was at the hospital she states she was began improving. From start to finish she states the episode lasted less than 1 hour before she was back to her baseline. She denies any weakness, numbness/tingling, shortness of breath, chest pain, cough. She denies any recent illnesses or falls. She currently lives at home alone and ambulates with a cane. Hospital course: The patient had no recurrence of expressive aphasia or d ysarthria with stable vital signs and no evidence to suggest atrial fibrillation. MRI of the brain did reveal findings compatible with an acute small right sided parietal stroke location commensurate with symptoms. CT angiography of the head and neck revealed some 50 percent lesions in the vertebrobasilar system but no significant flow-limiting disease was noted. The patient was switched from aspirin to clopidogrel 75 mg daily and atorvastatin was added 40 mg daily. There were no other medication changes. Her white count was elevated to 17.5 thousand on admission but she had no evidence for infection and was down to 11,000 today. Most likely this is stress-related emargination. Patient was advised to follow-up with her primary care provider at [facility] in 1-2 weeks and would consider echocardiography to complete workup for acute stroke. Labs (last 24 hrs) Laboratory Tests 03/23/19 14:25: Glucometer 190H 03/23/19 19:48: Glucometer 223H 03/24/19 05:27: Glucometer 172H 03/24/19 06:09: White Blood Count 11.1H, Red Blood Count 5.10, Hemoglobin 14.9, Hematocrit 44, Mean Corpuscular Volume 87, Mean Corpuscular Hemoglobin 29, Mean Corpuscular Hemoglobin Concent 34, Red Cell Distribution Width 14.5, Platelet Count 360, Mean Platelet Volume 10.8H, Sodium Level 135, Potassium Level 4.4, Chloride Level 100, Carbon Dioxide Level 25, Anion Gap 10, Blood Urea Nitrogen 9, Creatinine 0.72, Estimat Glomerular Filtration Rate > 60, BUN/Creatinine Ratio 13, Glucose Level 176H, Calcium Level 9.8 03/24/19 09:35: Glucometer 226H Microbiology 03/22/19 Blood Culture - Preliminary, Resulted No growth Patient resulted labs reviewed. Pending Labs Laboratory Tests 03/24/19 05:27: Glucometer 172 03/24/19 06:09: White Blood Count 11.1, Red Blood Count 5.10, Hemoglobin 14.9, Hematocrit 44, Mean Corpuscular Volume 87, Mean Corpuscular Hemoglobin 29, Mean Corpuscular Hemoglobin Concent 34, Red Cell Distribution Width 14.5, Platelet Count 360, Mean Platelet Volume 10.8, Sodium Level 135, Potassium Level 4.4, Chloride Level 100, Carbon Dioxide Level 25, Anion Gap 10, Blood Urea Nitrogen 9, Creatinine 0.72, Estimat Glomerular Filtration Rate > 60, BUN/Creatinine Ratio 13, Glucose Level 176, Calcium Level 9.8 03/24/19 09:35: Glucometer 226 Discussion & Recommendations Discharge Planning: >30 minutes discharge planning Discharge Home Medications: Active Scripts Active Clopidogrel (Clopidogrel Bisulfate) 75 Mg Tablet 75 Mg PO DAILY 90 Days Lipitor (Atorvastatin Calcium) 40 Mg Tablet 40 Mg PO HS 90 Days Reported Vitamin D3 (Cholecalciferol (Vitamin D3)) 1,000 Unit Capsule 1,000 Unit PO TID Fish Oil 1,000 mg Capsule ([place] 3 Polyunsat Fatty Acids) 1,000 Mg Cap 1,000 Mg PO DAILY Aspirin EC (Aspirin) 81 Mg Tablet.dr 81 Mg PO DAILY Multivitamins (Multivitamin) 1 Each Tablet 1 Tab PO HS Pioglitazone HCl 30 Mg Tablet 30 Mg PO DAILY Hydrochlorothiazide 25 Mg Tablet 25 Mg PO DAILY Proventil Hfa (Albuterol Sulfate) 6.7 Gm Hfa.aer.ad 2 Puff INH Q6H PRN Metformin HCl 1,000 Mg Tablet 1,000 Mg PO BID WITH MEALS Celexa (Citalopram Hydrobromide) 40 Mg Tablet 40 Mg PO DAILY Levothyroxine Sodium 175 Mcg Tablet 175 Mcg PO DAILY Lisinopril 40 Mg Tablet 40 Mg PO DAILY Instructions to patient/family Please see electronic discharge instructions given to patient. Clinical Quality Measures DVT/VTE Risk/Contraindication: Risk Factor Score Per Nursin RFS Level Per Nursing on Admit: 4+=Very High Copy Copies To 1: [facility]/ENEDELIA CISNEROS MD Mar 24, 2019 10:55
[2019-03-24 11:15] VITALS: BP 121/73
[2019-03-24 12:19] VITALS: BP 121/73
--- NOTE | 2019-03-24 12:20 | NUR ---
DERECK MUIR demonstrates understanding of discharge instructions and accurately returns instructions upon questioning. Copy of Post-Discharge Instructions and Medication Discharge Instructions given to PT. DERECK MUIR is able to manage continuing needs after discharge. Patients belongings returned to PT. Skin dry and intact; no breakdown noted. Patient discharged from [facility] on 03/24/19 at 1220. DERECK MUIR left floor via , accompanied by STAFF.
== END 2019-03-24 12:20 | disposition home or self-care (01) | DRG 64 ==
LOC: EDUNIT# 12:30 → ER 12:31 → 4TH 14:39
PROVIDERS: ADMIT Family Medicine; ATTEND Family Medicine
DX: I63.9 Cerebral infarction, unspecified (principal); J18.9 Pneumonia, unspecified organism; E87.1 Hypo-osmolality and hyponatremia; E11.65 Type 2 diabetes mellitus with hyperglycemia; I10 Essential (primary) hypertension; E86.0 Dehydration; J44.9 Chronic obstructive pulmonary disease, unspecified; I65.02 Occlusion and stenosis of left vertebral artery; F17.210 Nicotine dependence, cigarettes, uncomplicated; E03.9 Hypothyroidism, unspecified; F41.9 Anxiety disorder, unspecified; F32.9 Major depressive disorder, single episode, unspecified; E78.00 Pure hypercholesterolemia, unspecified; K57.90 Diverticulosis of intestine, part unspecified, without perforation or abscess without bleeding; Z85.42 Personal history of malignant neoplasm of other parts of uterus; Z90.710 Acquired absence of both cervix and uterus; Z79.84 Long term (current) use of oral hypoglycemic drugs
CPT/HCPCS: 36415; 70450; 70496; 70498; 70551; 71045; 80048; 80053; 80061; 81000; 82962; 83605; 84484; 85007; 85025; 85027; 85379; 85610; 85730; 87040; 93005; 93041; 93306; 94640; 94664; 94760; 96361; 96374

== ENCOUNTER 2019-10-07 21:01 | Observation (INO) | payer SELFPAY ==
[~2019-10-07] VITALS: Ht 157.5 cm; Wt 108.8 kg
[~2019-10-07 21:01] MED LIST changes: +ASPI-983 PO; +ATOR40TA PO; +CHOL10007 PO; +CITA40TA19 PO; +CLOP75TA28 PO; +HYDR25TA4 PO; +LEVO175T5 PO; +METF-399 PO; +MULT1TAB69 PO; +PIOG30TA71 PO; +RT-ALBUINH INH
--- OUTSIDE RECORDS SUMMARY | 2019-10-07 21:10 | XMS REPORT ---
Author Author Iza Renner Organization [facility] Address [address] [place] [address] Care Team Providers Care Catering Administrative Assistant Name Role Phone CAROLINE Renner Unavailable PROBLEMS Type Condition ICD9-CM Code ENT87-PM Code Onset Dates Condition S tatus SNOMED Code Problem Elevated hemoglobin A1c R73.09 Active 471400311 Problem Other elevated white blood cell (WBC) count D72.82 8 Active 662272066 Problem Elevated TSH R94.6 Active 3119902 05 Problem Mixed hyperlipidemia E78.2 Active 537545874 Problem Low TSH level R79.89 Active 292288 004 Problem Asthma J45.909 Active 041747767 Problem Generalized anxiety disorder F41.1 A ctive 302348335 Problem Heart murmur R01.1 Active 1917139 6 Problem Cerebrovascular disease I67.9 Active 48414334 Problem HTN (hypertension) I10 Active 3 3738775 Problem Essential hypertension I10 Active 51228639 Problem Hypothyroid E03.9 Active 68095800 Problem Other seasonal allergic rhinitis J30.2 Active 733516416 Problem Type 2 diabetes mellitus wit hout complication, without long-term current use of insulin E11.9 Active 136165245 Problem Vitamin D deficiency E55.9 Active 03318986 Problem Diabetes E11.9 Active 920681612 ALLERGIES No Information ENCOUNTERS Encounter Location Date Diagnosis [facility] [id number] [place] [address] Sep, [facility] [id number] [place] [address] Sep, Diabetes E11.9 ; Hypothyroid E03.9 ; Cer ebrovascular disease I67.9 ; Mixed hyperlipidemia E78.2 and Essential hypertension I10 [facility] [address] [id number] [place] [address] May, [place] [address] [address] Apr, Diabetes E11.9 ; Hypothyroid E03.9 and E ncounter for immunization Z23 [place] [address] [address] Sep, [place] [address] [address] Jun, Type 2 diabetes mellitus without complic ation, without long-term current use of insulin E11.9 ; HTN (hypertension) I10 and Muscle strain T14.8XXA [place] [address] [address] Jun, Asthma J45.909 [place] [address] [address] Jan, [facility] [place] [id number] [place] [address] Jan, Type 2 diabetes mellitus wit hout complication, without long-term current use of insulin E11.9 ; HTN (hypertension) I10 ; Asthma J45.909 ; Hypothyroid E03.9 and BMI 40.0-44.9, adult Z68.41 [place] [address] [address] Dec, Hypothyroid E03.9 [place] [address] [address] Dec, Elevated TSH R94.6 and Other elevated ite blood cell (WBC) count D72.828 [place] [address] [address] November, Other elevated white blood cell (WBC) co unt D72.828 [facility] [place] [address] [address] [place] [id number] [place] [address] November, Gastric acidity K31.89 and B elching R14.[address] [place] [address] Oct, Other elevated white blood cell (WBC) co unt D72.828 [place] [address] [address] Oct, Other elevated white blood cell (WBC) co unt D72.828 [facility] [address] [address] Oct, Elevated TSH R94.6 ; Other elevated whit e blood cell (WBC) count D72.828 and Mixed hyperlipidemia E78.2 [place] [address] [address] Oct, Elevated TSH R94.6 ; Mixed hyperlipidemi a E78.2 and Other elevated white blood cell (WBC) count D72.828 [place] [address] [address] Oct, Establishing care with new doctorariel for Z76.89 ; HTN (hypertension) I10 ; Asthma J45.909 ; Hypothyroid E03.9 ; Generalized anxiety disorder F41.1 ; Other seasonal allergic rhinitis J30.2 ; Vitamin D deficiency E55.9 ; BMI 45.0-49.9, adult Z68.42 and Type 2 diabetes mellitus without complication, without long-term current use of insulin E11.9 [facility] [address] [facility] [id number] [place] [id number] Sep, [facility] [address] [facility] [id number] [place] [address] May, Bronchitis J40 and BMI 40.0- 44.9, adult Z68.41 [facility] [id number] [place] [address] Mar, Type 2 diabetes mellitus without complic ation, without long-term current use of insulin E11.9 ; HTN (hypertension) I10 ; Asthma J45.909 ; Acquired hypothyroidism E03.9 ; Diabetes E11.9 ; Obsessive compulsive disorder F42 and Heart murmur R01.1 [place] [address] [address] Mar, Obsessive compulsive disorder F42 ; Asth ma J45.909 and HTN (hypertension) I10 [place] [address] [address] November, Diabetes E11.9 ; Hyponatremia E87.1 ; Ob sessive compulsive disorder F42 ; 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 ; HTN (hypertension) I10 ; Asthma J45.909 ; Generalized anxiety disorder F41.1 ; Chronic pain syndrome G89.4 and Acquired hypothyroidism E03.9 [place] [address] [address] May, [place] [address] [address] May, Diabetes E11.9 ; Hyponatremia E87.1 ; Ob sessive compulsive disorder F42 ; Anxiety F41.9 ; HTN (hypertension) I10 ; Asthma J45.909 ; Hypothyroid E03.9 and Neck pain M54.2 [place] [address] [address] Feb, Diabetes E11.9 ; Obsessive compulsive di sorder F42 ; 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 ; HTN (hypertension) I10 ; Asthma J45.909 ; Hypothyroid E03.9 and Myalgia M79.1 [place] [address] [address] Oct, Hyponatremia E87.1 [place] [address] [address] Oct, [place] [address] [address] 18 Aug, 2015 Hyponatremia E87.1 [place] [address] [address] 16 Aug, 2015 Diabetes E11.9 ; Hyponatremia E87.1 ; Ob sessive compulsive disorder F42 ; Anxiety F41.9 ; 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 ; HTN (hypertension) I10 ; Asthma J45.909 and Hypothyroid E03.9 [place] [address] [address] 08 Aug, 2015 [place] [address] [address] Jun, [place] [address] [address] Jun, [place] [address] [address] Jun, Diabetes E11.9 ; Encounter for immunizat ion Z23 ; Hyponatremia E87.1 ; Obsessive compulsive disorder F42 ; Anxiety F41.9 ; HTN (hypertension) I10 ; Hypothyroid E03.9 ; Asthma J45.909 and Generalized anxiety disorder F41.1 [place] [address] [address] Apr, Hyponatremia E87.1 ; Diabetes E11.9 ; Hi story of UTI Z87.440 ; Obsessive compulsive disorder F42 ; Anxiety F41.9 ; 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 ; Abdominal pain, right upper quadrant R10.11 ; HTN (hypertension) I10 ; Asthma J45.909 ; Hypothyroid E03.9 ; Exposure to pertussis Z20.89 and Encounter for immunization Z23 [place] [address] [address] Apr, [place] [address] [address] Mar, [place] [address] [address] Mar, [place] [address] [address] 14 Oct, 2014 [place] [address] [address] Oct, [place] [address] [address] Sep, [facility] [address] [facility] [id number] [place] [address] Sep, [facility] [address] [facility] [id number] [place] [address] Apr, [facility] [address] [id number] [facility] [place] [address] Apr, [facility] [address] [id number] [place] [address] Apr, [facility] [address] [facility] [id number] [place] [address] Apr, [facility] [address] [id number] [place] [address] Dec, [facility] [address] [id number] [place] [address] Dec, [facility] [address] [id number] [place] [address] November, [facility] [address] [id number] [place] [address] November, [facility] [address] [id number] [place] [address] November, [facility] [address] [id number] [place] [address] November, [facility] [address] [id number] [place] [address] November, [facility] [address] [facility] [id number] [place] [address] November, [facility] [address] [id number] [place] [address] Sep, [facility] [address] [id number] [place] [address] Sep, [facility] [address] [id number] [place] [address] Aug, [facility] [address] [id number] [place] [address] Aug, [facility] [address] [id number] [place] [address] Aug, [facility] [address] [id number] [place] [address] Aug, [facility] [address] [id number] [place] [address] Aug, [facility] [address] [id number] [place] [address] Aug, [facility] [address] [id number] [place] [address] Aug, [facility] [address] [id number] [place] [address] Jul, [facility] [address] [id number] [place] [address] Jul, [facility] [address] [id number] [place] [address] Jul, [facility] [address] [id number] [place] [address] Jul, [facility] [address] [id number] [place] [address] Jun, [facility] [address] [id number] [place] [address] Jun, [facility] [address] [id number] [place] [address] May, [facility] [address] [id number] [place] [address] May, [facility] [address] [id number] [place] [address] Apr, [facility] [address] [id number] [place] [address] Feb, [facility] [address] [id number] [place] [address] Feb, [facility] [address] [id number] [place] [address] Jan, [facility] [address] [id number] [place] [address] Dec, [facility] [address] [id number] [place] [address] November, [facility] [address] [id number] [place] [address] November, [facility] [address] [id number] [place] [address] November, [facility] [address] [id number] [place] [address] Oct, [facility] [address] [id number] [place] [address] Oct, [facility] [address] [id number] [place] [address] Oct, [facility] [address] [id number] [place] [address] Oct, [facility] [address] [id number] [place] [address] Oct, [facility] [address] [id number] [place] [address] Oct, [facility] [address] [id number] [place] [address] Oct, [facility] [address] [id number] [place] [address] Oct, [facility] [address] [id number] [place] [address] 14 Sep, 2012 [facility] [address] [id number] [place] [address] Sep, [facility] [address] [id number] [place] [address] Aug, [facility] [address] [id number] [place] [address] Aug, [facility] [address] [id number] [place] [address] Jul, [facility] [address] [id number] [place] [address] Jul, [facility] [address] [id number] [place] [address] Jul, [facility] [address] [id number] [place] [address] May, [facility] [address] [id number] [place] [address] May, [facility] [address] [id number] [place] [address] Apr, [facility] [address] [id number] [place] [address] Apr, [facility] [address] [id number] [place] [address] 24 Mar, 2012 [facility] [address] [id number] [place] [address] Mar, [facility] [address] [id number] [place] [address] Mar, [facility] [address] [id number] [place] [address] Feb, [facility] [address] [id number] [place] [address] Jan, [facility] [address] [id number] [place] [address] Jan, [facility] [address] [id number] [place] [address] Jan, [facility] [address] [id number] [place] [address] Jan, [facility] [address] [id number] [place] [address] Dec, [facility] [id number] [place] [address] Dec, [facility] [id number] [place] [address] Dec, [facility] [id number] [place] [address] Dec, [facility] [id number] [place] [address] Dec, [facility] [id number] [place] [address] Dec, [facility] [address] [address] November, [facility] [id number] [place] [address] Jun, [facility] [address] [address] Jun, [facility] [id number] [place] [address] May, [facility] [id number] [place] [address] Jan, [facility] [id number] [place] [address] May, [facility] [id number] [place] [address] May, [facility] [id number] [place] [address] Apr, [facility] [id number] [place] [address] Oct, IMMUNIZATIONS No Known Immunizations SOCIAL HISTORY Never Assessed REASON FOR VISIT PLAN OF CARE VITAL SIGNS MEDICATIONS Unknown Medications RESULTS No Results PROCEDURES No Known procedures INSTRUCTIONS MEDICATIONS ADMINISTERED No Known Medications MEDICAL (GENERAL) HISTORY Type Description Date Medical History hypothyroidism Medical History type 2 diabetes Medical History hypertension Medical History vitamin D deficiency Medical History depression Medical History asthma Medical History anxiety/panic attacks Medical History Obsessive compulsive disorder Medical History stroke 2019 Surgical History tonsillectomy Surgical History tubes in ears x 3 Surgical History section x 2 Surgical History tubal ligation Surgical History hysterectomy Surgical History cyst removal-left breast Surgical History back Surgical History dilatation and curettage Hospitalization History Surgery(s) only Hospitalization History asthma exacerbation Hospitalization History pneumonia Hospitalization History low sodium Hospitalization History chest pain Hospitalization History [facility]- stroke 2019
--- OUTSIDE RECORDS SUMMARY | 2019-10-07 21:11 | XMS REPORT ---
Author Author Iza Franco Doctor Organization [facility] Address Unknown Phone Unavailable Care Team Providers Care Food And Beverage Manager Name Role Phone Migration, Doctor Unavailable Unavailable PROBLEMS Type Condition ICD9-CM Code [id number] Code Onset Dates Condition S tatus SNOMED Code Problem Elevated hemoglobin A1c R73.09 Active 835714765 Problem Other elevated white blood cell (WBC) count D72.82 8 Active 040047751 Problem Elevated TSH R94.6 Active 1216794 05 Problem Hypothyroid E03.9 Active 78141863 Problem HTN (hypertension) I10 Active 3 1273661 Problem Asthma J45.909 Active 108588672 Problem Vitamin D deficiency E55.9 Active 50351987 Problem Mixed hyperlipidemia E78.2 Active 127409167 Problem Diabetes E11.9 Active 349453919 Problem Low TSH level R79.89 Active 149898 004 Problem Generalized anxiety disorder F41.1 A ctive 283909539 Problem Heart murmur R01.1 Active 9251999 6 Problem Other seasonal allergic rhinitis J30.2 Active 067973732 Problem Type 2 diabetes mellitus wit hout complication, without long-term current use of insulin E11.9 Active 672007852 ALLERGIES No Information ENCOUNTERS Encounter Location Date Diagnosis [place] [address] [address] May, [place] [address] [address] Apr, Diabetes E11.9 ; Hypothyroid E03.9 and E ncounter for immunization Z23 [place] [address] [address] Sep, [place] [address] [address] Jun, Type 2 diabetes mellitus without complic ation, without long-term current use of insulin E11.9 ; HTN (hypertension) I10 and Muscle strain T14.8XXA [place] [address] [address] Jun, Asthma J45.909 [place] [address] [address] Jan, [facility] [address] [facility] [id number] [address] [place] [address] Jan, Type 2 diabetes mellitus wit hout complication, without long-term current use of insulin E11.9 ; HTN (hypertension) I10 ; Asthma J45.909 ; Hypothyroid E03.9 and BMI 40.0-44.9, adult Z68.41 [place] [address] [address] Dec, Hypothyroid E03.9 [place] [address] [address] Dec, Elevated TSH R94.6 and Other elevated wh ite blood cell (WBC) count D72.828 [place] [address] [address] November, Other elevated white blood cell (WBC) co unt D72.828 [facility] [place] [address] [address] [place] [id number] [address] [place] [address] November, Gastric acidity K31.89 and B elching R14.2 [place] [address] [address] Oct, Other elevated white blood cell (WBC) co unt D72.828 [place] [address] [address] Oct, Other elevated white blood cell (WBC) co unt D72.828 [place] [address] [address] Oct, Elevated TSH R94.6 ; Other elevated whit e blood cell (WBC) count D72.828 and Mixed hyperlipidemia E78.2 [place] [address] [place] [address] [place] [address] Oct, Elevated TSH R94.6 ; Mixed hyperlipidemi a E78.2 and Other elevated white blood cell (WBC) count D72.828 [place] [address] [place] [id number] [place] [address] Oct, Establishing care with new doctor, ariel del rio for Z76.89 ; HTN (hypertension) I10 ; Asthma J45.909 ; Hypothyroid E03.9 ; Generalized anxiety disorder F41.1 ; Other seasonal allergic rhinitis J30.2 ; Vitamin D deficiency E55.9 ; BMI 45.0-49.9, adult Z68.42 and Type 2 diabetes mellitus without complication, without long-term current use of insulin E11.9 [facility] [address] [facility] [id number] [place], [place] [id number] Sep, [facility] [address] [facility] [id number] [address] [place] [address] May, Bronchitis J40 and BMI 40.0- 44.9, adult Z68.41 [place] [id number] [place] [address] Mar, Type 2 diabetes mellitus without complic ation, without long-term current use of insulin E11.9 ; HTN (hypertension) I10 ; Asthma J45.909 ; Acquired hypothyroidism E03.9 ; Diabetes E11.9 ; Obsessive compulsive disorder F42 and Heart murmur R01.1 [place] [id number] [place] [address] Mar, Obsessive compulsive disorder F42 ; Asth ma J45.909 and HTN (hypertension) I10 [place] [id number] [place] [address] November, Diabetes E11.9 ; Hyponatremia E87.1 ; Ob sessive compulsive disorder F42 ; 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 ; HTN (hypertension) I10 ; Asthma J45.909 ; Generalized anxiety disorder F41.1 ; Chronic pain syndrome G89.4 and Acquired hypothyroidism E03.9 [place] [address] [address] May, [place] [address] [address] May, Diabetes E11.9 ; Hyponatremia E87.1 ; Ob sessive compulsive disorder F42 ; Anxiety F41.9 ; HTN (hypertension) I10 ; Asthma J45.909 ; Hypothyroid E03.9 and Neck pain M54.2 [place] [address] [address] Feb, Diabetes E11.9 ; Obsessive compulsive di sorder F42 ; 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 ; HTN (hypertension) I10 ; Asthma J45.909 ; Hypothyroid E03.9 and Myalgia M79.1 [place] [address] [address] Oct, Hyponatremia E87.1 [place] [address] [address] Oct, [place] [address] [address] 18 Aug, 2015 Hyponatremia E87.1 [place] [address] [address] 16 Aug, 2015 Diabetes E11.9 ; Hyponatremia E87.1 ; Ob sessive compulsive disorder F42 ; Anxiety F41.9 ; 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 [address] [address] Apr, Hyponatremia E87.1 ; Diabetes E11.9 ; Hi story of UTI Z87.440 ; Obsessive compulsive disorder F42 ; Anxiety F41.9 ; 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 ; Abdominal pain, right upper quadrant R10.11 ; HTN (hypertension) I10 ; Asthma J45.909 ; Hypothyroid E03.9 ; Exposure to pertussis Z20.89 and Encounter for immunization Z23 [place] [address] [address] Apr, [facility] [address] [address] Mar, [facility] [address] [address] Mar, [facility] [address] [address] Oct, [facility] [address] [address] Oct, [facility] [address] [address] Sep, [facility] [address] [address] Sep, [facility] [address] [address] Apr, [facility] [address] [address] Apr, [facility] [address] [address] Apr, [facility] [address] [address] Apr, [facility] [address] [facility] [id number] [place] [address] Dec, [facility] [address] [id number] [place] [address] Dec, [facility] [address] [id number] [place] [address] November, [facility] [address] [id number] [place] [address] November, [facility] [address] [id number] [place] [address] November, [facility] [address] [id number] [place] [address] November, [facility] [address] [id number] [place] [address] November, [facility] [address] [id number] [place] [address] November, [facility] [address] [id number] [place] [address] Sep, [facility] [address] [id number] [place] [address] Sep, [facility] [address] [id number] [place] [address] Aug, [facility] [address] [id number] [place] [address] Aug, [facility] [address] [id number] [place] [address] Aug, [facility] [address] [id number] [place] [address] Aug, [facility] [address] [id number] [place] [address] Aug, [facility] [address] [id number] [place] [address] Aug, [facility] [address] [id number] [place] [address] Aug, [facility] [address] [id number] [place] [address] Jul, [facility] [address] [id number] [place] [address] Jul, [facility] [address] [id number] [place] [address] Jul, [facility] [address] [id number] [place] [address] Jul, [facility] [address] [id number] [place] [address] Jun, [facility] [address] [id number] [place] [address] Jun, [facility] [address] [id number] [place] [address] May, [facility] [address] [id number] [place] [address] May, [facility] [address] [id number] [place] [address] Apr, [facility] [address] [id number] [place] [address] Feb, [facility] [address] [id number] [place] [address] Feb, [facility] [address] [id number] [place] [address] Jan, [facility] [address] [id number] [place] [address] Dec, [facility] [address] [id number] [place] [address] November, [facility] [address] [id number] [place] [address] November, [facility] [address] [id number] [place] [address] November, [facility] [address] [id number] [place] [address] Oct, [facility] [address] [id number] [place] [address] Oct, [facility] [address] [id number] [place] [address] Oct, [facility] [address] [id number] [place] [address] Oct, [facility] [address] [id number] [place] [address] Oct, [facility] [address] [id number] [place] [address] Oct, [facility] [address] [id number] [place] [address] Oct, [facility] [address] [id number] [place] [address] Oct, [facility] [address] [id number] [place] [address] Sep, [facility] [address] [id number] [place] [address] Sep, [facility] [address] [id number] [place] [address] Aug, [facility] [address] [id number] [place] [address] Aug, [facility] [address] [id number] [place] [address] Jul, [facility] [address] [id number] [place] [address] Jul, [facility] [address] [id number] [place] [address] Jul, [facility] [address] [id number] [place] [address] May, [facility] [address] [id number] [place] [address] May, [facility] [address] [id number] [place] [address] 16 Apr, 2012 [facility] [address] [id number] [place] [address] 16 Apr, 2012 [facility] [address] [id number] [place] [address] 24 Mar, 2012 [facility] [address] [id number] [place] [address] 13 Mar, 2012 [facility] [address] [id number] [place] [address] Mar, [facility] [address] [id number] [place] [address] Feb, [facility] [address] [id number] [place] [address] Jan, [facility] [address] [id number] [place] [address] Jan, [facility] [address] [id number] [place] [address] Jan, [facility] [address] [id number] [place] [address] Jan, [facility] [address] [id number] [place] [address] Dec, [facility] [address] [id number] [place] [address] Dec, [facility] [address] [id number] [place] [address] Dec, [facility] [address] [id number] [place] [address] Dec, [facility] [address] [id number] [place] [address] Dec, [facility] [address] [id number] [place] [address] Dec, [facility] [address] [id number] [place] [address] November, [facility] [address] [id number] [place] [address] Jun, [facility] [address] [id number] [place] [address] Jun, [facility] [address] [place] [id number] [place] [address] May, [facility] [address] [id number] [place] [address] Jan, [facility] [address] [place] [id number] [place] [address] May, [facility] [address] [id number] [place] [address] May, [facility] [address] [place] [id number] [place] [address] Apr, [facility] [address] [id number] [place] [address] Oct, IMMUNIZATIONS No Known Immunizations SOCIAL HISTORY Never Assessed REASON FOR VISIT PLAN OF CARE VITAL SIGNS Height 62 in 2013-09-21 Weight 232 lbs 2013-09-21 Temperature 98 degrees Fahrenheit 2013-09-21 Heart Rate 70 bpm 2013-09-21 Respiratory Rate 20 2013-09-21 Blood pressure systolic 132 mmHg 2013-09-21 Blood pressure diastolic 78 mmHg 2013-09-21 MEDICATIONS Unknown Medications RESULTS No Results PROCEDURES [...] sodium Hospitalization History chest pain Hospitalization History [facility]- stroke 2018
--- OUTSIDE RECORDS SUMMARY | 2019-10-07 21:11 | XMS REPORT ---
Author Author Iza Franco Doctor Organization [facility] Address Unknown Phone Unavailable Care Team Providers Care Tire Classifier Name Role Phone Migration, Doctor Unavailable Unavailable PROBLEMS Type Condition ICD9-CM Code FRB91-FY Code Onset Dates Condition S tatus SNOMED Code Problem Elevated hemoglobin A1c R73.09 Active 906693816 Problem Other elevated white blood cell (WBC) count D72.82 8 Active 453958161 Problem Elevated TSH R94.6 Active 7428162 05 Problem Mixed hyperlipidemia E78.2 Active 672337429 Problem Low TSH level R79.89 Active 585335 004 Problem Asthma J45.909 Active 421807822 Problem Generalized anxiety disorder F41.1 A ctive 775454874 Problem Heart murmur R01.1 Active 2785803 6 Problem Cerebrovascular disease I67.9 Active 42961758 Problem HTN (hypertension) I10 Active 3 8692007 Problem Essential hypertension I10 Active 50890603 Problem Hypothyroid E03.9 Active 76525609 Problem Other seasonal allergic rhinitis J30.2 Active 128623188 Problem Type 2 diabetes mellitus wit hout complication, without long-term current use of insulin E11.9 Active 431422238 Problem Vitamin D deficiency E55.9 Active 40226217 Problem Diabetes E11.9 Active 406828630 ALLERGIES No Information ENCOUNTERS Encounter Location Date Diagnosis [place] [address] [address] Sep, [place] [address] [address] Sep, Diabetes E11.9 ; Hypothyroid E03.9 ; Cer ebrovascular disease I67.9 ; Mixed hyperlipidemia E78.2 and Essential hypertension I10 [place] [address] [address] May, [place] [address] [address] Apr, Diabetes E11.9 ; Hypothyroid E03.9 and E ncounter for immunization Z23 [place] [address] [address] Sep, [place] [address] [address] Jun, Type 2 diabetes mellitus without complic ation, without long-term current use of insulin E11.9 ; HTN (hypertension) I10 and Muscle strain T14.8XXA [place] [address] [address] Jun, Asthma J45.909 [place] [address] [address] Jan, [facility] [place] [address] [address] Jan, Type 2 diabetes mellitus wit hout complication, without long-term current use of insulin E11.9 ; HTN (hypertension) I10 ; Asthma J45.909 ; Hypothyroid E03.9 and BMI 40.0-44.9, adult Z68.41 [place] [address] [address] Dec, Hypothyroid E03.9 [place] [address] [address] Dec, Elevated TSH R94.6 and Other elevated ite blood cell (WBC) count D72.828 [place] [address] [address] November, Other elevated white blood cell (WBC) co unt D72.828 [facility] [address] [place], [place] [id number] [address] [place] [address] November, Gastric acidity K31.89 and B elching R14.2 [place] [address] [address] Oct, Other elevated white blood cell (WBC) co unt D72.828 [place] [address] [place] [id number] [place] [address] Oct, Other elevated white blood cell (WBC) co unt D72.828 [place] [address] [address] Oct, Elevated TSH R94.6 ; Other elevated whit e blood cell (WBC) count D72.828 and Mixed hyperlipidemia E78.2 [place] [address] [address] Oct, Elevated TSH R94.6 ; Mixed hyperlipidemi a E78.2 and Other elevated white blood cell (WBC) count D72.828 [place] [address] [address] Oct, Establishing care with new doctor, ariel del rio for Z76.89 ; HTN (hypertension) I10 ; Asthma J45.909 ; Hypothyroid E03.9 ; Generalized anxiety disorder F41.1 ; Other seasonal allergic rhinitis J30.2 ; Vitamin D deficiency E55.9 ; BMI 45.0-49.9, adult Z68.42 and Type 2 diabetes mellitus without complication, without long-term current use of insulin E11.9 [facility] [address] [facility] [id number] [place] [id number] Sep, [facility] [address] [facility] [id number] [place] [address] May, Bronchitis J40 and BMI 40.0- 44.9, adult Z68.41 [facility] [address] [place] [id number] [place] [address] Mar, Type 2 diabetes mellitus without complic ation, without long-term current use of insulin E11.9 ; HTN (hypertension) I10 ; Asthma J45.909 ; Acquired hypothyroidism E03.9 ; Diabetes E11.9 ; Obsessive compulsive disorder F42 and Heart murmur R01.1 [facility] [address] [place] [id number] [place] [address] Mar, Obsessive compulsive disorder F42 ; Asth ma J45.909 and HTN (hypertension) I10 [place] [address] [address] November, Diabetes E11.9 ; Hyponatremia E87.1 ; Ob sessive compulsive disorder F42 ; 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 ; HTN (hypertension) I10 ; Asthma J45.909 ; Generalized anxiety disorder F41.1 ; Chronic pain syndrome G89.4 and Acquired hypothyroidism E03.[address] [address] May, [address] [address] May, Diabetes E11.9 ; Hyponatremia E87.1 ; Ob sessive compulsive disorder F42 ; Anxiety F41.9 ; HTN (hypertension) I10 ; Asthma J45.909 ; Hypothyroid E03.9 and Neck pain M54.[address] [address] Feb, Diabetes E11.9 ; Obsessive compulsive di sorder F42 ; 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 ; HTN (hypertension) I10 ; Asthma J45.909 ; Hypothyroid E03.9 and Myalgia M79.[address] [address] Oct, Hyponatremia E87.1 [place] [address] [address] Oct, [address] [address] Aug, Hyponatremia E87.[address] [address] 16 Aug, 2015 Diabetes E11.9 ; Hyponatremia E87.1 ; Ob sessive compulsive disorder F42 ; Anxiety F41.9 ; 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 ; HTN (hypertension) I10 ; Asthma J45.909 and Hypothyroid E03.9 [place] [address] [address] 08 Aug, 2015 [facility] [address] [address] Jun, [facility] [address] [address] Jun, [facility] [address] [address] Jun, Diabetes E11.9 ; Encounter for immunizat ion Z23 ; Hyponatremia E87.1 ; Obsessive compulsive disorder F42 ; Anxiety F41.9 ; HTN (hypertension) I10 ; Hypothyroid E03.9 ; Asthma J45.909 and Generalized anxiety disorder F41.1 [place] [address] [address] Apr, Hyponatremia E87.1 ; Diabetes E11.9 ; Hi story of UTI Z87.440 ; Obsessive compulsive disorder F42 ; Anxiety F41.9 ; 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 ; Abdominal pain, right upper quadrant R10.11 ; HTN (hypertension) I10 ; Asthma J45.909 ; Hypothyroid E03.9 ; Exposure to pertussis Z20.89 and Encounter for immunization Z23 [place] [address] [address] Apr, [facility] [address] [address] Mar, [facility] [address] [address] 08 Mar, 2015 [facility] [address] [address] 14 Oct, 2014 [place] [address] [address] Oct, [facility] [address] [address] Sep, [facility] [address] [address] Sep, [facility] [place] [facility] [address] [facility] [id number] [place] [address] Apr, [facility] [place] [facility] [address] [facility] [id number] [facility] [address] Apr, [facility] [place] [facility] [address] [id number] [place] [address] Apr, [facility] [place] [facility] [address] [facility] [id number] [place] [address] Apr, [facility] [place] [facility] [address] [facility] [id number] [place] [address] Dec, [facility] [place] [facility] [address] [id number] [place] [address] Dec, [facility] [place] [facility] [address] [id number] [place] [address] November, [facility] [place] [facility] [address] [id number] [place] [address] November, [facility] [place] [facility] [address] [id number] [place] [address] November, [facility] [place] [facility] [address] [id number] [place] [address] November, [facility] [place] [facility] [address] [id number] [place] [address] November, [facility] [place] [facility] [address] [id number] [place] [address] November, [facility] [place] [facility] [address] [id number] [place] [address] Sep, [facility] [place] [facility] [address] [id number] [place] [address] Sep, [facility] [place] [facility] [address] [id number] [place] [address] Aug, [facility] [place] [facility] [address] [id number] [place] [address] Aug, [facility] [place] [facility] [address] [id number] [place] [address] Aug, [facility] [place] [facility] [address] [id number] [place] [address] Aug, [facility] [place] [facility] [address] [id number] [place] [address] Aug, [facility] [place] [facility] [address] [id number] [place] [address] Aug, [facility] [place] [facility] [address] [id number] [place] [address] Aug, [facility] [place] [facility] [address] [id number] [place] [address] Jul, [facility] [place] [facility] [address] [id number] [place] [address] Jul, [facility] [place] [facility] [address] [id number] [place] [address] Jul, [facility] [place] [facility] [address] [id number] [place] [address] Jul, [facility] [place] [facility] [address] [id number] [place] [address] Jun, [facility] [place] [facility] [address] [id number] [place] [address] Jun, [facility] [place] [facility] [address] [id number] [place] [address] May, [facility] [place] [facility] [address] [id number] [place] [address] May, [facility] [place] [facility] [address] [id number] [place] [address] Apr, [facility] [place] [facility] [address] [id number] [place] [address] Feb, [facility] [place] [facility] [address] [id number] [place] [address] Feb, [facility] [place] [facility] [address] [id number] [place] [address] Jan, [facility] [address] [facility] [id number] [place] [address] Dec, [facility] [place] [facility] [address] [id number] [place] [address] November, [facility] [place] [facility] [address] [id number] [place] [address] November, [facility] [place] [facility] [address] [id number] [place] [address] November, [facility] [place] [facility] [address] [facility] [id number] [place] [address] Oct, [facility] [place] [facility] [address] [id number] [place] [address] Oct, [facility] [place] [facility] [address] [id number] [place] [address] Oct, [facility] [place] [facility] [address] [id number] [place] [address] Oct, [facility] [place] [facility] [address] [id number] [place] [address] Oct, [facility] [place] [facility] [address] [id number] [place] [address] Oct, [facility] [place] [facility] [address] [id number] [place] [address] Oct, [facility] [place] [facility] [address] [id number] [place] [address] Oct, [facility] [place] [facility] [address] [id number] [place] [address] 14 Sep, 2012 [facility] [place] [facility] [address] [id number] [place] [address] Sep, [facility] [place] [facility] [address] [id number] [place] [address] Aug, [facility] [place] [facility] [address] [id number] [place] [address] Aug, [facility] [place] [facility] [address] [id number] [place] [address] Jul, [facility] [place] [facility] [address] [id number] [place] [address] Jul, [facility] [place] [facility] [address] [id number] [place] [address] Jul, [facility] [place] [facility] [address] [id number] [place] [address] May, [facility] [place] [facility] [address] [id number] [place] [address] May, [facility] [place] [facility] [address] [id number] [place] [address] Apr, [facility] [place] [facility] [address] [id number] [place] [address] Apr, [facility] [place] [facility] [address] [id number] [place] [address] 24 Mar, 2012 [facility] [place] [facility] [address] [id number] [place] [address] Mar, [facility] [place] [facility] [address] [id number] [place] [address] Mar, [facility] [place] [facility] [address] [id number] [place] [address] Feb, [facility] [place] [facility] [address] [id number] [place] [address] Jan, [facility] [place] [facility] [address] [id number] [place] [address] Jan, [facility] [place] [facility] [address] [id number] [place] [address] Jan, [facility] [place] [facility] [address] [id number] [place] [address] Jan, [facility] [place] [facility] [address] [id number] [place] [address] Dec, [facility] [place] [facility] [address] [id number] [place] [address] Dec, [facility] [address] [id number] [place] [address] Dec, [facility] [address] [place] [id number] [place] [address] Dec, [facility] [address] [place] [id number] [place] [address] Dec, [facility] [address] [place] [id number] [place] [address] Dec, [facility] [address] [place] [id number] [place] [address] November, [facility] [address] [address] Jun, [facility] [address] [place] [id number] [place] [address] Jun, [facility] [address] [place] [id number] [place] [address] May, [facility] [address] [place] [id number] [place] [address] Jan, [facility] [address] [place] [address] [id number] [place] [address] May, [facility] [address] [place] [id number] [place] [address] May, [facility] [address] [place] [address] [id number] [place] [address] Apr, [facility] [address] [place] [address] [id number] [place] [address] Oct, IMMUNIZATIONS No Known Immunizations SOCIAL HISTORY [...] sodium Hospitalization History chest pain Hospitalization History [facility]- stroke 2019
--- OUTSIDE RECORDS SUMMARY | 2019-10-07 21:11 | XMS REPORT ---
Author Author Iza Franco Doctor Organization [facility] Address Unknown Phone Unavailable Care Team Providers Care Box Spinner Name Role Phone Migration, Doctor Unavailable Unavailable PROBLEMS Type Condition ICD9-CM Code HRP64-BM Code Onset Dates Condition S tatus SNOMED Code Problem Elevated hemoglobin A1c R73.09 Active 713939157 Problem Other elevated white blood cell (WBC) count D72.82 8 Active 515173155 Problem Elevated TSH R94.6 Active 7391417 05 Problem Hypothyroid E03.9 Active 04449328 Problem HTN (hypertension) I10 Active 3 4456497 Problem Asthma J45.909 Active 008518846 Problem Vitamin D deficiency E55.9 Active 10078736 Problem Mixed hyperlipidemia E78.2 Active 169695421 Problem Diabetes E11.9 Active 413806596 Problem Low TSH level R79.89 Active 275959 004 Problem Generalized anxiety disorder F41.1 A ctive 076082086 Problem Heart murmur R01.1 Active 4295035 6 Problem Other seasonal allergic rhinitis J30.2 Active 395918483 Problem Type 2 diabetes mellitus wit hout complication, without long-term current use of insulin E11.9 Active 110186875 ALLERGIES No Information ENCOUNTERS Encounter Location Date Diagnosis [place] [address] [address] May, [place] [address] [address] Apr, Diabetes E11.9 ; Hypothyroid E03.9 and E ncounter for immunization Z23 [place] [address] [address] Sep, [place] [address] [address] Jun, Type 2 diabetes mellitus without complic ation, without long-term current use of insulin E11.9 ; HTN (hypertension) I10 and Muscle strain T14.8XXA [place] [address] [address] Jun, Asthma J45.909 [place] [address] [address] Jan, [facility] [address] [facility] [id number] [address] [place] [address] Jan, Type 2 diabetes mellitus wit hout complication, without long-term current use of insulin E11.9 ; HTN (hypertension) I10 ; Asthma J45.909 ; Hypothyroid E03.9 and BMI 40.0-44.9, adult Z68.41 [place] [address] [address] Dec, Hypothyroid E03.9 [place] [address] [address] Dec, Elevated TSH R94.6 and Other elevated wh ite blood cell (WBC) count D72.828 [place] [address] [address] November, Other elevated white blood cell (WBC) co unt D72.828 [facility] [place] [address] [address] [place] [id number] [address] [place] [address] November, Gastric acidity K31.89 and B elching R14.2 [place] [address] [address] Oct, Other elevated white blood cell (WBC) co unt D72.828 [place] [address] [address] Oct, Other elevated white blood cell (WBC) co unt D72.828 [place] [address] [address] Oct, Elevated TSH R94.6 ; Other elevated whit e blood cell (WBC) count D72.828 and Mixed hyperlipidemia E78.2 [place] [address] [place] [address] [place] [address] Oct, Elevated TSH R94.6 ; Mixed hyperlipidemi a E78.2 and Other elevated white blood cell (WBC) count D72.828 [place] [address] [place] [id number] [place] [address] Oct, Establishing care with new doctor, ariel del rio for Z76.89 ; HTN (hypertension) I10 ; Asthma J45.909 ; Hypothyroid E03.9 ; Generalized anxiety disorder F41.1 ; Other seasonal allergic rhinitis J30.2 ; Vitamin D deficiency E55.9 ; BMI 45.0-49.9, adult Z68.42 and Type 2 diabetes mellitus without complication, without long-term current use of insulin E11.9 [facility] [address] [facility] [id number] [place] [id number] Sep, [facility] [address] [facility] [id number] [address] [place] [address] May, Bronchitis J40 and BMI 40.0- 44.9, adult Z68.41 [place] [id number] [place] [address] Mar, Type 2 diabetes mellitus without complic ation, without long-term current use of insulin E11.9 ; HTN (hypertension) I10 ; Asthma J45.909 ; Acquired hypothyroidism E03.9 ; Diabetes E11.9 ; Obsessive compulsive disorder F42 and Heart murmur R01.1 [place] [id number] [place] [address] Mar, Obsessive compulsive disorder F42 ; Asth ma J45.909 and HTN (hypertension) I10 [place] [id number] [place] [address] November, Diabetes E11.9 ; Hyponatremia E87.1 ; Ob sessive compulsive disorder F42 ; 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 ; HTN (hypertension) I10 ; Asthma J45.909 ; Generalized anxiety disorder F41.1 ; Chronic pain syndrome G89.4 and Acquired hypothyroidism E03.9 [place] [address] [address] May, [place] [address] [address] May, Diabetes E11.9 ; Hyponatremia E87.1 ; Ob sessive compulsive disorder F42 ; Anxiety F41.9 ; HTN (hypertension) I10 ; Asthma J45.909 ; Hypothyroid E03.9 and Neck pain M54.2 [place] [address] [address] Feb, Diabetes E11.9 ; Obsessive compulsive di sorder F42 ; 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 ; HTN (hypertension) I10 ; Asthma J45.909 ; Hypothyroid E03.9 and Myalgia M79.1 [place] [address] [address] Oct, Hyponatremia E87.1 [place] [address] [address] Oct, [place] [address] [address] 18 Aug, 2015 Hyponatremia E87.1 [place] [address] [address] 16 Aug, 2015 Diabetes E11.9 ; Hyponatremia E87.1 ; Ob sessive compulsive disorder F42 ; Anxiety F41.9 ; 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 ; HTN (hypertension) I10 ; Asthma J45.909 and Hypothyroid E03.9 [place] [address] [address] 08 Aug, 2015 [place] [address] [address] Jun, [place] [address] [address] Jun, [place] [address] [address] Jun, Diabetes E11.9 ; Encounter for immunizat ion Z23 ; Hyponatremia E87.1 ; Obsessive compulsive disorder F42 ; Anxiety F41.9 ; HTN (hypertension) I10 ; Hypothyroid E03.9 ; Asthma J45.909 and Generalized anxiety disorder F41.1 [facility] [address] [address] Apr, Hyponatremia E87.1 ; Diabetes E11.9 ; Hi story of UTI Z87.440 ; Obsessive compulsive disorder F42 ; Anxiety F41.9 ; 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 ; Abdominal pain, right upper quadrant R10.11 ; HTN (hypertension) I10 ; Asthma J45.909 ; Hypothyroid E03.9 ; Exposure to pertussis Z20.89 and Encounter for immunization Z23 [place] [address] [address] Apr, [facility] [address] [address] Mar, [facility] [address] [address] Mar, [facility] [address] [address] Oct, [facility] [address] [address] Oct, [facility] [address] [address] Sep, [facility] [address] [address] Sep, [facility] [address] [address] Apr, [facility] [address] [address] Apr, [facility] [address] [address] Apr, [facility] [address] [address] Apr, [facility] [address] [facility] [id number] [place] [address] Dec, [facility] [address] [id number] [place] [address] Dec, [facility] [address] [id number] [place] [address] November, [facility] [address] [id number] [place] [address] November, [facility] [address] [id number] [place] [address] November, [facility] [address] [id number] [place] [address] November, [facility] [address] [id number] [place] [address] November, [facility] [address] [id number] [place] [address] November, [facility] [address] [id number] [place] [address] Sep, [facility] [address] [id number] [place] [address] Sep, [facility] [address] [id number] [place] [address] Aug, [facility] [address] [id number] [place] [address] Aug, [facility] [address] [id number] [place] [address] Aug, [facility] [address] [id number] [place] [address] Aug, [facility] [address] [id number] [place] [address] Aug, [facility] [address] [id number] [place] [address] Aug, [facility] [address] [id number] [place] [address] Aug, [facility] [address] [id number] [place] [address] Jul, [facility] [address] [id number] [place] [address] Jul, [facility] [address] [id number] [place] [address] Jul, [facility] [address] [id number] [place] [address] Jul, [facility] [address] [id number] [place] [address] Jun, [facility] [address] [id number] [place] [address] Jun, [facility] [address] [id number] [place] [address] May, [facility] [address] [id number] [place] [address] May, [facility] [address] [id number] [place] [address] Apr, [facility] [address] [id number] [place] [address] Feb, [facility] [address] [id number] [place] [address] Feb, [facility] [address] [id number] [place] [address] Jan, [facility] [address] [id number] [place] [address] Dec, [facility] [address] [id number] [place] [address] November, [facility] [address] [id number] [place] [address] November, [facility] [address] [id number] [place] [address] November, [facility] [id number] [facility] [place] [address] Oct, [facility] [address] [id number] [facility] [place] [address] Oct, [facility] [address] [id number] [facility] [place] [address] Oct, [facility] [address] [id number] [facility] [place] [address] Oct, [facility] [address] [id number] [facility] [place] [address] Oct, [facility] [address] [id number] [place] [address] Oct, [facility] [address] [id number] [place] [address] Oct, [facility] [address] [id number] [place] [address] Oct, [facility] [address] [id number] [place] [address] Sep, [facility] [address] [id number] [place] [address] Sep, [facility] [address] [id number] [place] [address] Aug, [facility] [address] [id number] [place] [address] Aug, [facility] [address] [id number] [place] [address] Jul, [facility] [address] [id number] [place] [address] Jul, [facility] [address] [id number] [place] [address] Jul, [facility] [address] [id number] [place] [address] May, [facility] [address] [id number] [place] [address] May, [facility] [address] [id number] [place] [address] 16 Apr, 2012 [facility] [address] [facility] [id number] [place] [address] 16 Apr, 2012 [facility] [address] [id number] [place] [address] 24 Mar, 2012 [facility] [address] [id number] [place] [address] 13 Mar, 2012 [facility] [address] [id number] [place] [address] Mar, [facility] [address] [id number] [place] [address] Feb, [facility] [address] [id number] [place] [address] Jan, [facility] [address] [id number] [place] [address] Jan, [facility] [address] [id number] [place] [address] Jan, [facility] [address] [id number] [place] [address] Jan, [facility] [address] [id number] [place] [address] Dec, [facility] [address] [id number] [place] [address] Dec, [facility] [address] [id number] [place] [address] Dec, [facility] [address] [facility] [id number] [place] [address] Dec, [facility] [address] [facility] [id number] [place] [address] Dec, [facility] [address] [id number] [place] [address] Dec, [facility] [address] [facility] [id number] [place] [address] November, [facility] [address] [place] [id number] [place] [address] Jun, [facility] [address] [id number] [place] [address] Jun, [facility] [address] [address] May, [facility] [address] [place] [id number] [place] [address] Jan, [facility] [address] [address] May, [facility] [address] [place] [id number] [place] [address] May, [facility] [address] [address] Apr, [facility] [address] [id number] [place] [address] Oct, IMMUNIZATIONS No Known Immunizations SOCIAL HISTORY Never Assessed REASON FOR VISIT PLAN OF CARE VITAL SIGNS Height 62 in 2013-08-24 Weight 2229.8 lbs 2013-08-24 Temperature 97.8 degrees Fahrenheit 2013-08-24 Heart Rate 82 bpm 2013-08-24 Respiratory Rate 24 2013-08-24 Blood pressure systolic 118 mmHg 2013-08-24 Blood pressure diastolic 88 mmHg 2013-08-24 MEDICATIONS Unknown Medications RESULTS No Results PROCEDURES Procedure Date Ordered Result Body Site THER/PROPH/DIAG INJ, SC/IM Aug 24, 2013 INJ KETOROLAC TROMETHAMINE 15 MG Aug 24, 2013 GLYCATED HEMOGLOBIN TEST Aug 24, 2013 CT THORAX W/DYE Aug 24, 2013 INSTRUCTIONS MEDICATIONS ADMINISTERED No Known Medications MEDICAL [...] History chest pain Hospitalization History [facility]- stroke 2019
--- OUTSIDE RECORDS SUMMARY | 2019-10-07 21:11 | XMS REPORT ---
Author Author Iza KELSEY Organization [facility] Address [address] [place] [address] Care Team Providers Care Director Of Teenage Activities Name Role Phone [place] KELSEY Unavailable PROBLEMS Type Condition ICD9-CM Code DNT27-ZK Code Onset Dates Condition S tatus SNOMED Code Problem Elevated hemoglobin A1c R73.09 Active 130741291 Problem Other elevated white blood cell (WBC) count D72.82 8 Active 216632316 Problem Elevated TSH R94.6 Active 4608818 05 Problem Hypothyroid E03.9 Active 50647850 Problem HTN (hypertension) I10 Active 3 6669670 Problem Asthma J45.909 Active 106135861 Problem Vitamin D deficiency E55.9 Active 98129259 Problem Mixed hyperlipidemia E78.2 Active 198064285 Problem Diabetes E11.9 Active 272828101 Problem Low TSH level R79.89 Active 004276 004 Problem Generalized anxiety disorder F41.1 A ctive 659323364 Problem Heart murmur R01.1 Active 7507084 6 Problem Other seasonal allergic rhinitis J30.2 Active 377911668 Problem Type 2 diabetes mellitus wit hout complication, without long-term current use of insulin E11.9 Active 809568826 ALLERGIES No Information ENCOUNTERS Encounter Location Date Diagnosis [place] [address] [address] May, [place] [address] [address] Apr, Diabetes E11.9 ; Hypothyroid E03.9 and E ncounter for immunization Z23 [place] [address] [address] Sep, [place] [address] [address] Jun, Type 2 diabetes mellitus without complic ation, without long-term current use of insulin E11.9 ; HTN (hypertension) I10 and Muscle strain T14.8XXA [place] [address] [address] Jun, Asthma J45.909 [place] [address] [address] Jan, [facility] [place] [address] [address] Jan, Type 2 diabetes mellitus wit hout complication, without long-term current use of insulin E11.9 ; HTN (hypertension) I10 ; Asthma J45.909 ; Hypothyroid E03.9 and BMI 40.0-44.9, adult Z68.41 [place] [address] [address] Dec, Hypothyroid E03.9 [place] [address] [address] Dec, Elevated TSH R94.6 and Other elevated wh ite blood cell (WBC) count D72.828 [place] [address] [address] November, Other elevated white blood cell (WBC) co unt D72.828 [place] [address] [address] [place] [id number] [place] [address] November, Gastric acidity K31.89 and B elching R14.2 [place] [address] [address] Oct, Other elevated white blood cell (WBC) co unt D72.828 [place] [address] [address] Oct, Other elevated white blood cell (WBC) co unt D72.828 [place] [address] [address] Oct, Elevated TSH R94.6 ; Other elevated whit e blood cell (WBC) count D72.828 and Mixed hyperlipidemia E78.2 [facility] [address] [id number] [place] [address] Oct, Elevated TSH R94.6 ; Mixed hyperlipidemi a E78.2 and Other elevated white blood cell (WBC) count D72.828 [facility] [address] [place] [id number] [place] [address] Oct, Establishing care with new doctorariel for Z76.89 ; HTN (hypertension) I10 ; Asthma J45.909 ; Hypothyroid E03.9 ; Generalized anxiety disorder F41.1 ; Other seasonal allergic rhinitis J30.2 ; Vitamin D deficiency E55.9 ; BMI 45.0-49.9, adult Z68.42 and Type 2 diabetes mellitus without complication, without long-term current use of insulin E11.9 [facility] [address] [facility] [id number] [place] [id number] Sep, [facility] IN [facility] [address] [facility] [id number] [address] [place] [address] May, Bronchitis J40 and BMI 40.0- 44.9, adult Z68.41 [place] [address] [address] 18 Mar, 2017 Type 2 diabetes mellitus without complic ation, without long-term current use of insulin E11.9 ; HTN (hypertension) I10 ; Asthma J45.909 ; Acquired hypothyroidism E03.9 ; Diabetes E11.9 ; Obsessive compulsive disorder F42 and Heart murmur R01.1 [place] [address] [address] Mar, Obsessive compulsive disorder F42 ; Asth ma J45.909 and HTN (hypertension) I10 [address] [address] November, Diabetes E11.9 ; Hyponatremia E87.1 ; Ob sessive compulsive disorder F42 ; 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 ; HTN (hypertension) I10 ; Asthma J45.909 ; Generalized anxiety disorder F41.1 ; Chronic pain syndrome G89.4 and Acquired hypothyroidism E03.9 [place] [address] [address] May, [place] [address] [address] May, Diabetes E11.9 ; Hyponatremia E87.1 ; Ob sessive compulsive disorder F42 ; Anxiety F41.9 ; HTN (hypertension) I10 ; Asthma J45.909 ; Hypothyroid E03.9 and Neck pain M54.2 [place] [address] [address] Feb, Diabetes E11.9 ; Obsessive compulsive di sorder F42 ; 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 ; HTN (hypertension) I10 ; Asthma J45.909 ; Hypothyroid E03.9 and Myalgia M79.1 [place] [address] [address] Oct, Hyponatremia E87.1 [place] [address] [address] Oct, [place] [address] [address] 18 Aug, 2015 Hyponatremia E87.1 [place] [address] [address] 16 Aug, 2015 Diabetes E11.9 ; Hyponatremia E87.1 ; Ob sessive compulsive disorder F42 ; Anxiety F41.9 ; 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 ; HTN (hypertension) I10 ; Asthma J45.909 and Hypothyroid E03.9 [place] [address] [address] 08 Aug, 2015 [place] [address] [address] Jun, [place] [address] [address] Jun, [facility] [address] [place] [id number] [place] [address] Jun, Diabetes E11.9 ; Encounter for immunizat ion Z23 ; Hyponatremia E87.1 ; Obsessive compulsive disorder F42 ; Anxiety F41.9 ; HTN (hypertension) I10 ; Hypothyroid E03.9 ; Asthma J45.909 and Generalized anxiety disorder F41.1 [facility] [address] [address] Apr, Hyponatremia E87.1 ; Diabetes E11.9 ; Hi story of UTI Z87.440 ; Obsessive compulsive disorder F42 ; Anxiety F41.9 ; 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 ; Abdominal pain, right upper quadrant R10.11 ; HTN (hypertension) I10 ; Asthma J45.909 ; Hypothyroid E03.9 ; Exposure to pertussis Z20.89 and Encounter for immunization Z23 [place] [address] [address] Apr, [facility] [address] [address] Mar, [place] [address] [address] Mar, [facility] [address] [address] Oct, [facility] [address] [address] Oct, [facility] [address] [address] Sep, [facility] [address] [address] Sep, [facility] [address] [address] Apr, [facility] [address] [address] Apr, [facility] [address] [address] Apr, [facility] [address] [id number] [place] [address] Apr, [facility] [address] [id number] [place] [address] Dec, [facility] [address] [id number] [place] [address] Dec, [facility] [address] [id number] [place] [address] November, [facility] [address] [id number] [place] [address] November, [facility] [address] [id number] [place] [address] November, [facility] [address] [id number] [place] [address] November, [facility] [address] [id number] [place] [address] November, [facility] [address] [id number] [place] [address] November, [facility] [address] [id number] [place] [address] Sep, [facility] [address] [id number] [place] [address] Sep, [facility] [address] [id number] [place] [address] Aug, [facility] [address] [id number] [place] [address] Aug, [facility] [address] [id number] [place] [address] Aug, [facility] [address] [id number] [place] [address] Aug, [facility] [address] [id number] [place] [address] Aug, [facility] [address] [id number] [place] [address] Aug, [facility] [address] [id number] [place] [address] Aug, [facility] [address] [id number] [place] [address] Jul, [facility] [address] [id number] [place] [address] Jul, [facility] [address] [id number] [place] [address] Jul, [facility] [address] [id number] [place] [address] Jul, [facility] [address] [id number] [place] [address] Jun, [facility] [address] [id number] [place] [address] Jun, [facility] [address] [id number] [place] [address] May, [facility] [address] [id number] [place] [address] May, [facility] [address] [id number] [place] [address] Apr, [facility] [address] [id number] [place] [address] Feb, [facility] [address] [id number] [place] [address] Feb, [facility] [address] [id number] [place] [address] Jan, [facility] [address] [id number] [place] [address] Dec, [facility] [address] [id number] [place] [address] November, [facility] [address] [id number] [place] [address] November, [facility] [address] [facility] [id number] [place] [address] November, [facility] [address] [facility] [id number] [place] [address] Oct, [facility] [address] [id number] [place] [address] Oct, [facility] [address] [id number] [place] [address] Oct, [facility] [address] [facility] [id number] [place] [address] Oct, [facility] [address] [id number] [place] [address] Oct, [facility] [address] [id number] [place] [address] Oct, [facility] [address] [id number] [place] [address] Oct, [facility] [address] [id number] [place] [address] Oct, [facility] [address] [id number] [place] [address] Sep, [facility] [address] [id number] [place] [address] Sep, [facility] [address] [id number] [place] [address] Aug, [facility] [address] [id number] [place] [address] Aug, [facility] [address] [id number] [place] [address] Jul, [facility] [address] [id number] [place] [address] Jul, [facility] [address] [id number] [place] [address] Jul, [facility] [address] [id number] [place] [address] May, [facility] [address] [id number] [place] [address] May, [facility] [address] [id number] [place] [address] Apr, [facility] [address] [id number] [place] [address] Apr, [facility] [address] [id number] [place] [address] 24 Mar, 2012 [facility] [address] [id number] [place] [address] Mar, [facility] [address] [id number] [place] [address] Mar, [facility] [address] [id number] [place] [address] Feb, [facility] [address] [id number] [place] [address] Jan, [facility] [address] [id number] [place] [address] Jan, [facility] [address] [id number] [place] [address] Jan, [facility] [address] [id number] [place] [address] Jan, [facility] [address] [id number] [place] [address] Dec, [facility] [address] [id number] [place] [address] Dec, [facility] [address] [id number] [place] [address] Dec, [facility] [address] [id number] [place] [address] Dec, [facility] [address] [id number] [place] [address] Dec, [facility] [address] [id number] [place] [address] Dec, [facility] [address] [place] [id number] [place] [address] November, [facility] [address] [id number] [place] [address] Jun, [facility] [address] [place] [id number] [place] [address] Jun, [facility] [address] [place] [id number] [place] [address] May, [facility] [address] [place] [id number] [place] [address] Jan, [facility] [address] [place] [id number] [place] [address] May, [facility] [address] [place] [id number] [place] [address] May, [facility] [address] [place] [id number] [place] [address] Apr, [facility] [address] [place] [id number] [place] [address] Oct, IMMUNIZATIONS No Known Immunizations SOCIAL HISTORY [...] sodium Hospitalization History chest pain Hospitalization History [facility]- stroke 2018
--- OUTSIDE RECORDS SUMMARY | 2019-10-07 21:11 | XMS REPORT ---
Author Author Iza Renner Organization [facility] Address [address] [place] [address] Care Team Providers Care Sped Teacher Name Role Phone CAROLINE Renner Unavailable PROBLEMS Type Condition ICD9-CM Code KVE11-FD Code Onset Dates Condition S tatus SNOMED Code Problem Elevated hemoglobin A1c R73.09 Active 631991108 Problem Other elevated white blood cell (WBC) count D72.82 8 Active 584574483 Problem Elevated TSH R94.6 Active 2919904 05 Problem Hypothyroid E03.9 Active 78548087 Problem HTN (hypertension) I10 Active 3 0536901 Problem Asthma J45.909 Active 661615859 Problem Vitamin D deficiency E55.9 Active 58918042 Problem Mixed hyperlipidemia E78.2 Active 104954631 Problem Diabetes E11.9 Active 400195189 Problem Low TSH level R79.89 Active 289019 004 Problem Generalized anxiety disorder F41.1 A ctive 807134561 Problem Heart murmur R01.1 Active 0417406 6 Problem Other seasonal allergic rhinitis J30.2 Active 424430813 Problem Type 2 diabetes mellitus wit hout complication, without long-term current use of insulin E11.9 Active 016147704 ALLERGIES No Information ENCOUNTERS Encounter Location Date Diagnosis [place] [id number] [place] [address] May, [facility] [address] [address] Apr, Diabetes E11.9 ; Hypothyroid E03.9 and E ncounter for immunization Z23 [place] [address] [address] Sep, [place] [address] [address] Jun, Type 2 diabetes mellitus without complic ation, without long-term current use of insulin E11.9 ; HTN (hypertension) I10 and Muscle strain T14.8XXA [address] [address] Jun, Asthma J45.909 [place] [address] [address] Jan, [facility] [place] [address] [address] Jan, Type 2 diabetes mellitus wit hout complication, without long-term current use of insulin E11.9 ; HTN (hypertension) I10 ; Asthma J45.909 ; Hypothyroid E03.9 and BMI 40.0-44.9, adult Z68.[address] [address] Dec, Hypothyroid E03.9 [place] [address] [address] Dec, Elevated TSH R94.6 and Other elevated wh ite blood cell (WBC) count D72.[address] [address] November, Other elevated white blood cell (WBC) co unt D72.[address] [address] November, Gastric acidity K31.89 and B elching R14.[address] [address] Oct, Other elevated white blood cell (WBC) co unt D72.828 [place] [address] [address] Oct, Other elevated white blood cell (WBC) co unt D72.828 [place] [address] [address] Oct, Elevated TSH R94.6 ; Other elevated whit e blood cell (WBC) count D72.828 and Mixed hyperlipidemia E78.2 [facility] [id number] [place] [address] Oct, Elevated TSH R94.6 ; Mixed hyperlipidemi a E78.2 and Other elevated white blood cell (WBC) count D72.828 [place] [address] [address] Oct, Establishing care with new doctorariel for Z76.89 ; HTN (hypertension) I10 ; Asthma J45.909 ; Hypothyroid E03.9 ; Generalized anxiety disorder F41.1 ; Other seasonal allergic rhinitis J30.2 ; Vitamin D deficiency E55.9 ; BMI 45.0-49.9, adult Z68.42 and Type 2 diabetes mellitus without complication, without long-term current use of insulin E11.9 [facility] [address] [facility] [id number] [place] [id number] Sep, [facility] [address] [facility] [id number] [place] [address] May, Bronchitis J40 and BMI 40.0- 44.9, adult Z68.41 [place] [address] [address] 18 Mar, 2017 Type 2 diabetes mellitus without complic ation, without long-term current use of insulin E11.9 ; HTN (hypertension) I10 ; Asthma J45.909 ; Acquired hypothyroidism E03.9 ; Diabetes E11.9 ; Obsessive compulsive disorder F42 and Heart murmur R01.1 [place] [address] [address] Mar, Obsessive compulsive disorder F42 ; Asth ma J45.909 and HTN (hypertension) I10 [place] [address] [address] November, Diabetes E11.9 ; Hyponatremia E87.1 ; Ob sessive compulsive disorder F42 ; 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 ; HTN (hypertension) I10 ; Asthma J45.909 ; Generalized anxiety disorder F41.1 ; Chronic pain syndrome G89.4 and Acquired hypothyroidism E03.9 [place] [address] [address] May, [place] [address] [address] May, Diabetes E11.9 ; Hyponatremia E87.1 ; Ob sessive compulsive disorder F42 ; Anxiety F41.9 ; HTN (hypertension) I10 ; Asthma J45.909 ; Hypothyroid E03.9 and Neck pain M54.2 [place] [address] [address] Feb, Diabetes E11.9 ; Obsessive compulsive di sorder F42 ; 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 ; HTN (hypertension) I10 ; Asthma J45.909 ; Hypothyroid E03.9 and Myalgia M79.1 [place] [address] [address] Oct, Hyponatremia E87.1 [place] [address] [address] Oct, [address] [address] 18 Aug, 2015 Hyponatremia E87.1 [place] [address] [address] 16 Aug, 2015 Diabetes E11.9 ; Hyponatremia E87.1 ; Ob sessive compulsive disorder F42 ; Anxiety F41.9 ; 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 ; HTN (hypertension) I10 ; Asthma J45.909 and Hypothyroid E03.9 [place] [address] [address] 08 Aug, 2015 [place] [address] [address] 10 Jun, 2015 [place] [address] [address] Jun, [facility] [id number] [place] [address] Jun, Diabetes E11.9 ; Encounter for immunizat ion Z23 ; Hyponatremia E87.1 ; Obsessive compulsive disorder F42 ; Anxiety F41.9 ; HTN (hypertension) I10 ; Hypothyroid E03.9 ; Asthma J45.909 and Generalized anxiety disorder F41.1 [facility] [address] [address] Apr, Hyponatremia E87.1 ; Diabetes E11.9 ; Hi story of UTI Z87.440 ; Obsessive compulsive disorder F42 ; Anxiety F41.9 ; 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 ; Abdominal pain, right upper quadrant R10.11 ; HTN (hypertension) I10 ; Asthma J45.909 ; Hypothyroid E03.9 ; Exposure to pertussis Z20.89 and Encounter for immunization Z23 [facility] [address] [address] Apr, [facility] [address] [address] Mar, [facility] [address] [address] Mar, [facility] [address] [address] 14 Oct, 2014 [facility] [address] [address] Oct, [facility] [address] [address] Sep, [facility] [address] [address] Sep, [facility] [address] [address] Apr, [facility] [address] [address] Apr, [facility] [address] [place] [address] [place] [address] Apr, [facility] [address] [facility] [id number] [place] [address] Apr, [facility] [address] [id number] [place] [address] Dec, [facility] [address] [id number] [place] [address] Dec, [facility] [address] [id number] [place] [address] November, [facility] [address] [id number] [place] [address] November, [facility] [address] [id number] [place] [address] November, [facility] [address] [id number] [place] [address] November, [facility] [address] [id number] [place] [address] November, [facility] [address] [id number] [place] [address] November, [facility] [address] [id number] [place] [address] Sep, [facility] [address] [id number] [place] [address] Sep, [facility] [address] [id number] [place] [address] Aug, [facility] [address] [id number] [place] [address] Aug, [facility] [address] [id number] [place] [address] Aug, [facility] [address] [id number] [place] [address] Aug, [facility] [address] [id number] [place] [address] Aug, [facility] [address] [id number] [place] [address] Aug, [facility] [address] [id number] [place] [address] Aug, [facility] [address] [id number] [place] [address] Jul, [facility] [address] [id number] [facility] [address] Jul, [facility] [address] [id number] [place] [address] Jul, [facility] [address] [id number] [place] [address] Jul, [facility] [address] [id number] [place] [address] Jun, [facility] [address] [id number] [place] [address] Jun, [facility] [address] [id number] [place] [address] May, [facility] [address] [id number] [place] [address] May, [facility] [address] [id number] [place] [address] Apr, [facility] [address] [id number] [place] [address] Feb, [facility] [address] [id number] [place] [address] Feb, [facility] [address] [id number] [place] [address] Jan, [facility] [address] [id number] [place] [address] Dec, [facility] [address] [id number] [place] [address] November, [facility] [address] [id number] [place] [address] November, [facility] [address] [facility] [id number] [place] [address] November, [facility] [address] [id number] [place] [address] Oct, [facility] [address] [id number] [place] [address] Oct, [facility] [address] [id number] [place] [address] Oct, [facility] [address] [id number] [place] [address] Oct, [facility] [address] [id number] [place] [address] Oct, [facility] [address] [id number] [place] [address] Oct, [facility] [address] [id number] [place] [address] Oct, [facility] [address] [id number] [place] [address] Oct, [facility] [address] [id number] [place] [address] Sep, [facility] [address] [id number] [place] [address] Sep, [facility] [address] [id number] [place] [address] Aug, [facility] [address] [id number] [place] [address] Aug, [facility] [address] [id number] [place] [address] Jul, [facility] [address] [id number] [place] [address] Jul, [facility] [address] [id number] [place] [address] Jul, [facility] [address] [id number] [place] [address] May, [facility] [address] [id number] [place] [address] May, [facility] [address] [id number] [place] [address] Apr, [facility] [address] [id number] [place] [address] Apr, [facility] [address] [id number] [place] [address] 24 Mar, 2012 [facility] [address] [id number] [place] [address] Mar, [facility] [address] [id number] [place] [address] Mar, [facility] [address] [id number] [place] [address] Feb, [facility] [address] [id number] [place] [address] Jan, [facility] [address] [id number] [place] [address] Jan, [facility] [address] [id number] [place] [address] Jan, [facility] [address] [id number] [place] [address] Jan, [facility] [address] [id number] [place] [address] Dec, [facility] [address] [id number] [place] [address] Dec, [facility] [address] [id number] [place] [address] Dec, [facility] [address] [id number] [place] [address] Dec, [facility] [address] [id number] [place] [address] Dec, [facility] [id number] [place] [address] Dec, [facility] [id number] [place] [address] November, [facility] [address] [id number] [place] [address] Jun, [facility] [id number] [place] [address] Jun, [facility] [address] [address] May, [facility] [address] [address] Jan, [facility] [id number] [place] [address] May, [facility] [id number] [place] [address] May, [facility] [id number] [place] [address] Apr, [facility] [id number] [place] [address] Oct, IMMUNIZATIONS No Known Immunizations SOCIAL HISTORY Never Assessed REASON FOR VISIT PLAN OF CARE VITAL SIGNS Height 62 in 2013-12-12 Weight 233.2 lbs 2013-12-12 Temperature 99 degrees Fahrenheit 2013-12-12 Heart Rate 76 bpm 2013-12-12 Respiratory Rate 20 2013-12-12 Blood pressure systolic 138 mmHg 2013-12-12 Blood pressure diastolic 96 mmHg 2013-12-12 MEDICATIONS Unknown Medications RESULTS No Results PROCEDURES Procedure Date Ordered Result Body Site ASSAY THYROID STIM HORMONE December 12, 2013 GLYCATED HEMOGLOBIN TEST December 12, 2013 LIPID PANEL December 12, 2013 VENIPUNCT, ROUTINE* December 12, 2013 INSTRUCTIONS MEDICATIONS ADMINISTERED No Known Medications [...] sodium Hospitalization History chest pain Hospitalization History [facility]- stroke 2019
--- OUTSIDE RECORDS SUMMARY | 2019-10-07 21:11 | XMS REPORT ---
Author Author Iza Franco Doctor Organization [facility] Address Unknown Phone Unavailable Care Team Providers Care Canine Service Teacher Name Role Phone Migration, Doctor Unavailable Unavailable PROBLEMS Type Condition ICD9-CM Code [id number] Code Onset Dates Condition S tatus SNOMED Code Problem Elevated hemoglobin A1c R73.09 Active 999283604 Problem Other elevated white blood cell (WBC) count D72.82 8 Active 027345684 Problem Elevated TSH R94.6 Active 1955164 05 Problem Mixed hyperlipidemia E78.2 Active 849605744 Problem Low TSH level R79.89 Active 852887 004 Problem Asthma J45.909 Active 971853750 Problem Generalized anxiety disorder F41.1 A ctive 170144477 Problem Heart murmur R01.1 Active 0215056 6 Problem Cerebrovascular disease I67.9 Active 81995586 Problem HTN (hypertension) I10 Active 3 1268583 Problem Essential hypertension I10 Active 30337078 Problem Hypothyroid E03.9 Active 04783074 Problem Other seasonal allergic rhinitis J30.2 Active 141189837 Problem Type 2 diabetes mellitus wit hout complication, without long-term current use of insulin E11.9 Active 976964929 Problem Vitamin D deficiency E55.9 Active 99995476 Problem Diabetes E11.9 Active 872642676 ALLERGIES No Information ENCOUNTERS Encounter Location Date Diagnosis [place] [address] [address] Sep, [place] [address] [address] Sep, Diabetes E11.9 ; Hypothyroid E03.9 ; Cer ebrovascular disease I67.9 ; Mixed hyperlipidemia E78.2 and Essential hypertension I10 [place] [address] [address] May, [place] [address] [address] Apr, Diabetes E11.9 ; Hypothyroid E03.9 and E ncounter for immunization Z23 [place] [address] [address] Sep, [place] [address] [address] Jun, Type 2 diabetes mellitus without complic ation, without long-term current use of insulin E11.9 ; HTN (hypertension) I10 and Muscle strain T14.8XXA [place] [address] [address] Jun, Asthma J45.909 [place] [address] [address] Jan, [facility] [place] [address] [address] Jan, Type 2 diabetes mellitus wit hout complication, without long-term current use of insulin E11.9 ; HTN (hypertension) I10 ; Asthma J45.909 ; Hypothyroid E03.9 and BMI 40.0-44.9, adult Z68.41 [place] [address] [address] Dec, Hypothyroid E03.9 [place] [address] [address] Dec, Elevated TSH R94.6 and Other elevated ite blood cell (WBC) count D72.828 [place] [address] [address] November, Other elevated white blood cell (WBC) co unt D72.828 [facility] [address] [place], [place] [id number] [address] [place] [address] November, Gastric acidity K31.89 and B elching R14.2 [place] [address] [address] Oct, Other elevated white blood cell (WBC) co unt D72.828 [place] [address] [place] [id number] [place] [address] Oct, Other elevated white blood cell (WBC) co unt D72.828 [place] [address] [address] Oct, Elevated TSH R94.6 ; Other elevated whit e blood cell (WBC) count D72.828 and Mixed hyperlipidemia E78.2 [place] [address] [address] Oct, Elevated TSH R94.6 ; Mixed hyperlipidemi a E78.2 and Other elevated white blood cell (WBC) count D72.828 [place] [address] [address] Oct, Establishing care with new doctor, ariel del rio for Z76.89 ; HTN (hypertension) I10 ; Asthma J45.909 ; Hypothyroid E03.9 ; Generalized anxiety disorder F41.1 ; Other seasonal allergic rhinitis J30.2 ; Vitamin D deficiency E55.9 ; BMI 45.0-49.9, adult Z68.42 and Type 2 diabetes mellitus without complication, without long-term current use of insulin E11.9 [facility] [address] [facility] [id number] [place] [id number] Sep, [facility] [address] [facility] [id number] [address] [place] [address] May, Bronchitis J40 and BMI 40.0- 44.9, adult Z68.41 [facility] [address] [place] [id number] [place] [address] Mar, Type 2 diabetes mellitus without complic ation, without long-term current use of insulin E11.9 ; HTN (hypertension) I10 ; Asthma J45.909 ; Acquired hypothyroidism E03.9 ; Diabetes E11.9 ; Obsessive compulsive disorder F42 and Heart murmur R01.1 [facility] [address] [place] [id number] [place] [address] Mar, Obsessive compulsive disorder F42 ; Asth ma J45.909 and HTN (hypertension) I10 [place] [address] [address] November, Diabetes E11.9 ; Hyponatremia E87.1 ; Ob sessive compulsive disorder F42 ; 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 ; HTN (hypertension) I10 ; Asthma J45.909 ; Generalized anxiety disorder F41.1 ; Chronic pain syndrome G89.4 and Acquired hypothyroidism E03.[address] [address] May, [address] [address] May, Diabetes E11.9 ; Hyponatremia E87.1 ; Ob sessive compulsive disorder F42 ; Anxiety F41.9 ; HTN (hypertension) I10 ; Asthma J45.909 ; Hypothyroid E03.9 and Neck pain M54.[address] [address] Feb, Diabetes E11.9 ; Obsessive compulsive di sorder F42 ; 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 ; HTN (hypertension) I10 ; Asthma J45.909 ; Hypothyroid E03.9 and Myalgia M79.[address] [address] Oct, Hyponatremia E87.1 [place] [address] [address] Oct, [address] [address] Aug, Hyponatremia E87.[address] [address] 16 Aug, 2015 Diabetes E11.9 ; Hyponatremia E87.1 ; Ob sessive compulsive disorder F42 ; Anxiety F41.9 ; 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 ; HTN (hypertension) I10 ; Asthma J45.909 and Hypothyroid E03.9 [place] [address] [address] 08 Aug, 2015 [facility] [address] [address] Jun, [facility] [address] [address] Jun, [facility] [address] [address] Jun, Diabetes E11.9 ; Encounter for immunizat ion Z23 ; Hyponatremia E87.1 ; Obsessive compulsive disorder F42 ; Anxiety F41.9 ; HTN (hypertension) I10 ; Hypothyroid E03.9 ; Asthma J45.909 and Generalized anxiety disorder F41.1 [place] [address] [address] Apr, Hyponatremia E87.1 ; Diabetes E11.9 ; Hi story of UTI Z87.440 ; Obsessive compulsive disorder F42 ; Anxiety F41.9 ; 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 ; Abdominal pain, right upper quadrant R10.11 ; HTN (hypertension) I10 ; Asthma J45.909 ; Hypothyroid E03.9 ; Exposure to pertussis Z20.89 and Encounter for immunization Z23 [place] [address] [address] Apr, [facility] [address] [address] Mar, [facility] [address] [address] 08 Mar, 2015 [facility] [address] [address] 14 Oct, 2014 [place] [address] [address] Oct, [facility] [address] [address] Sep, [facility] [address] [address] Sep, [facility] [place] [facility] [address] [facility] [id number] [place] [address] Apr, [facility] [place] [facility] [address] [facility] [id number] [facility] [address] Apr, [facility] [place] [facility] [address] [id number] [place] [address] Apr, [facility] [place] [facility] [address] [facility] [id number] [place] [address] Apr, [facility] [place] [facility] [address] [facility] [id number] [place] [address] Dec, [facility] [place] [facility] [address] [id number] [place] [address] Dec, [facility] [place] [facility] [address] [id number] [place] [address] November, [facility] [place] [facility] [address] [id number] [place] [address] November, [facility] [place] [facility] [address] [id number] [place] [address] November, [facility] [place] [facility] [address] [id number] [place] [address] November, [facility] [place] [facility] [address] [id number] [place] [address] November, [facility] [place] [facility] [address] [id number] [place] [address] November, [facility] [place] [facility] [address] [id number] [place] [address] Sep, [facility] [place] [facility] [address] [id number] [place] [address] Sep, [facility] [place] [facility] [address] [id number] [place] [address] Aug, [facility] [place] [facility] [address] [id number] [place] [address] Aug, [facility] [place] [facility] [address] [id number] [place] [address] Aug, [facility] [place] [facility] [address] [id number] [place] [address] Aug, [facility] [place] [facility] [address] [id number] [place] [address] Aug, [facility] [place] [facility] [address] [id number] [place] [address] Aug, [facility] [place] [facility] [address] [id number] [place] [address] Aug, [facility] [place] [facility] [address] [id number] [place] [address] Jul, [facility] [place] [facility] [address] [id number] [place] [address] Jul, [facility] [place] [facility] [address] [id number] [place] [address] Jul, [facility] [place] [facility] [address] [id number] [place] [address] Jul, [facility] [place] [facility] [address] [id number] [place] [address] Jun, [facility] [place] [facility] [address] [id number] [place] [address] Jun, [facility] [place] [facility] [address] [id number] [place] [address] May, [facility] [place] [facility] [address] [id number] [place] [address] May, [facility] [place] [facility] [address] [id number] [place] [address] Apr, [facility] [place] [facility] [address] [id number] [place] [address] Feb, [facility] [place] [facility] [address] [id number] [place] [address] Feb, [facility] [place] [facility] [address] [id number] [place] [address] Jan, [facility] [address] [facility] [id number] [place] [address] Dec, [facility] [place] [facility] [address] [id number] [facility] [address] November, [facility] [place] [facility] [address] [id number] [facility] [address] November, [facility] [place] [facility] [address] [id number] [facility] [address] November, [facility] [place] [facility] [address] [facility] [id number] [facility] [address] Oct, [facility] [place] [facility] [address] [id number] [place] [address] Oct, [facility] [place] [facility] [address] [id number] [place] [address] Oct, [facility] [place] [facility] [address] [id number] [place] [address] Oct, [facility] [place] [facility] [address] [id number] [place] [address] Oct, [facility] [place] [facility] [address] [id number] [place] [address] Oct, [facility] [place] [facility] [address] [id number] [place] [address] Oct, [facility] [place] [facility] [address] [id number] [place] [address] Oct, [facility] [place] [facility] [address] [id number] [place] [address] 14 Sep, 2012 [facility] [place] [facility] [address] [id number] [place] [address] Sep, [facility] [place] [facility] [address] [id number] [place] [address] Aug, [facility] [place] [facility] [address] [id number] [place] [address] Aug, [facility] [place] [facility] [address] [id number] [place] [address] Jul, [facility] [place] [facility] [address] [id number] [place] [address] Jul, [facility] [place] [facility] [address] [id number] [place] [address] Jul, [facility] [place] [facility] [address] [id number] [place] [address] May, [facility] [place] [facility] [address] [id number] [place] [address] May, [facility] [place] [facility] [address] [id number] [place] [address] Apr, [facility] [place] [facility] [address] [id number] [place] [address] Apr, [facility] [place] [facility] [address] [id number] [place] [address] 24 Mar, 2012 [facility] [place] [facility] [address] [id number] [place] [address] Mar, [facility] [place] [facility] [address] [id number] [place] [address] Mar, [facility] [place] [facility] [address] [id number] [place] [address] Feb, [facility] [place] [facility] [address] [id number] [place] [address] Jan, [facility] [place] [facility] [address] [id number] [place] [address] Jan, [facility] [place] [facility] [address] [id number] [place] [address] Jan, [facility] [place] [facility] [address] [id number] [place] [address] Jan, [facility] [place] [facility] [address] [id number] [place] [address] Dec, [facility] [place] [facility] [address] [id number] [place] [address] Dec, [facility] [address] [id number] [place] [address] Dec, [facility] [address] [place] [id number] [place] [address] Dec, [facility] [address] [place] [id number] [place] [address] Dec, [facility] [address] [place] [id number] [place] [address] Dec, [facility] [address] [place] [id number] [place] [address] November, [facility] [address] [address] Jun, [facility] [address] [place] [id number] [place] [address] Jun, [facility] [address] [place] [id number] [place] [address] May, [facility] [address] [place] [id number] [place] [address] Jan, [facility] [address] [place] [id number] [place] [address] May, [facility] [address] [place] [id number] [place] [address] May, [facility] [address] [place] [id number] [place] [address] Apr, [facility] [address] [place] [id number] [place] [address] Oct, IMMUNIZATIONS No Known Immunizations SOCIAL HISTORY [...] sodium Hospitalization History chest pain [facility] 2019
--- OUTSIDE RECORDS SUMMARY | 2019-10-07 21:12 | XMS REPORT ---
Author Author Iza Renner Organization [facility] Address [address] [place] [address] Care Team Providers Care Heavy Line Technician Name Role Phone CAROLINE Renner Unavailable PROBLEMS Type Condition ICD9-CM Code TFP40-YD Code Onset Dates Condition S tatus SNOMED Code Problem Elevated hemoglobin A1c R73.09 Active 389977091 Problem Other elevated white blood cell (WBC) count D72.82 8 Active 635164878 Problem Elevated TSH R94.6 Active 9916666 05 Problem Hypothyroid E03.9 Active 98743295 Problem HTN (hypertension) I10 Active 3 2976554 Problem Asthma J45.909 Active 480551658 Problem Vitamin D deficiency E55.9 Active 73157852 Problem Mixed hyperlipidemia E78.2 Active 393971140 Problem Diabetes E11.9 Active 429795231 Problem Low TSH level R79.89 Active 888931 004 Problem Generalized anxiety disorder F41.1 A ctive 195732405 Problem Heart murmur R01.1 Active 0296358 6 Problem Other seasonal allergic rhinitis J30.2 Active 346679242 Problem Type 2 diabetes mellitus wit hout complication, without long-term current use of insulin E11.9 Active 302052587 ALLERGIES No Information ENCOUNTERS Encounter Location Date Diagnosis [place] [address] [address] May, [place] [address] [address] Apr, Diabetes E11.9 ; Hypothyroid E03.9 and E ncounter for immunization Z23 [place] [address] [address] Sep, [place] [address] [address] Jun, Type 2 diabetes mellitus without complic ation, without long-term current use of insulin E11.9 ; HTN (hypertension) I10 and Muscle strain T14.8XXA [address] [address] Jun, Asthma J45.909 [place] [address] [address] Jan, [facility] [place] [address] [address] Jan, Type 2 diabetes mellitus wit hout complication, without long-term current use of insulin E11.9 ; HTN (hypertension) I10 ; Asthma J45.909 ; Hypothyroid E03.9 and BMI 40.0-44.9, adult Z68.[address] [address] Dec, Hypothyroid E03.9 [place] [address] [address] Dec, Elevated TSH R94.6 and Other elevated wh ite blood cell (WBC) count D72.[address] [address] November, Other elevated white blood cell (WBC) co unt D72.[address] [address] November, Gastric acidity K31.89 and B elching R14.[address] [address] Oct, Other elevated white blood cell (WBC) co unt D72.828 [place] [address] [address] Oct, Other elevated white blood cell (WBC) co unt D72.828 [place] [address] [address] Oct, Elevated TSH R94.6 ; Other elevated whit e blood cell (WBC) count D72.828 and Mixed hyperlipidemia E78.2 [facility] [address] [place] [id number] [place] [address] Oct, Elevated TSH R94.6 ; Mixed hyperlipidemi a E78.2 and Other elevated white blood cell (WBC) count D72.828 [place] [address] [address] Oct, Establishing care with new doctorariel for Z76.89 ; HTN (hypertension) I10 ; Asthma J45.909 ; Hypothyroid E03.9 ; Generalized anxiety disorder F41.1 ; Other seasonal allergic rhinitis J30.2 ; Vitamin D deficiency E55.9 ; BMI 45.0-49.9, adult Z68.42 and Type 2 diabetes mellitus without complication, without long-term current use of insulin E11.9 [facility] [address] [facility] [id number] [place] [id number] Sep, [facility] [address] [facility] [id number] [place] [address] May, Bronchitis J40 and BMI 40.0- 44.9, adult Z68.41 [place] [address] [address] 18 Mar, 2017 Type 2 diabetes mellitus without complic ation, without long-term current use of insulin E11.9 ; HTN (hypertension) I10 ; Asthma J45.909 ; Acquired hypothyroidism E03.9 ; Diabetes E11.9 ; Obsessive compulsive disorder F42 and Heart murmur R01.1 [place] [address] [address] Mar, Obsessive compulsive disorder F42 ; Asth ma J45.909 and HTN (hypertension) I10 [place] [address] [address] November, Diabetes E11.9 ; Hyponatremia E87.1 ; Ob sessive compulsive disorder F42 ; 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 ; HTN (hypertension) I10 ; Asthma J45.909 ; Generalized anxiety disorder F41.1 ; Chronic pain syndrome G89.4 and Acquired hypothyroidism E03.9 [place] [address] [address] May, [place] [address] [address] May, Diabetes E11.9 ; Hyponatremia E87.1 ; Ob sessive compulsive disorder F42 ; Anxiety F41.9 ; HTN (hypertension) I10 ; Asthma J45.909 ; Hypothyroid E03.9 and Neck pain M54.2 [place] [address] [address] Feb, Diabetes E11.9 ; Obsessive compulsive di sorder F42 ; 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 ; HTN (hypertension) I10 ; Asthma J45.909 ; Hypothyroid E03.9 and Myalgia M79.1 [place] [address] [address] Oct, Hyponatremia E87.1 [place] [address] [address] Oct, [address] [address] 18 Aug, 2015 Hyponatremia E87.1 [place] [address] [address] 16 Aug, 2015 Diabetes E11.9 ; Hyponatremia E87.1 ; Ob sessive compulsive disorder F42 ; Anxiety F41.9 ; 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 [address] [place] [id number] [place] [address] Jun, Diabetes E11.9 ; Encounter for immunizat ion Z23 ; Hyponatremia E87.1 ; Obsessive compulsive disorder F42 ; Anxiety F41.9 ; HTN (hypertension) I10 ; Hypothyroid E03.9 ; Asthma J45.909 and Generalized anxiety disorder F41.1 [facility] [address] [address] Apr, Hyponatremia E87.1 ; Diabetes E11.9 ; Hi story of UTI Z87.440 ; Obsessive compulsive disorder F42 ; Anxiety F41.9 ; 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 ; Abdominal pain, right upper quadrant R10.11 ; HTN (hypertension) I10 ; Asthma J45.909 ; Hypothyroid E03.9 ; Exposure to pertussis Z20.89 and Encounter for immunization Z23 [facility] [address] [address] Apr, [facility] [address] [address] Mar, [facility] [address] [address] Mar, [facility] [address] [address] 14 Oct, 2014 [facility] [address] [address] Oct, [facility] [address] [address] Sep, [facility] [address] [address] Sep, [facility] [address] [address] Apr, [facility] [address] [address] Apr, [facility] [address] [place] [address] [place] [address] Apr, [facility] [address] [facility] [id number] [place] [address] Apr, [facility] [address] [id number] [place] [address] Dec, [facility] [address] [id number] [place] [address] Dec, [facility] [address] [id number] [place] [address] November, [facility] [address] [id number] [place] [address] November, [facility] [address] [id number] [place] [address] November, [facility] [address] [id number] [place] [address] November, [facility] [address] [id number] [place] [address] November, [facility] [address] [id number] [place] [address] November, [facility] [address] [id number] [place] [address] Sep, [facility] [address] [id number] [place] [address] Sep, [facility] [address] [id number] [place] [address] Aug, [facility] [address] [id number] [place] [address] Aug, [facility] [address] [id number] [place] [address] Aug, [facility] [address] [id number] [place] [address] Aug, [facility] [address] [id number] [place] [address] Aug, [facility] [address] [id number] [place] [address] Aug, [facility] [address] [id number] [place] [address] Aug, [facility] [address] [id number] [place] [address] Jul, [facility] [address] [id number] [facility] [address] Jul, [facility] [address] [id number] [place] [address] Jul, [facility] [address] [id number] [place] [address] Jul, [facility] [address] [id number] [place] [address] Jun, [facility] [address] [id number] [place] [address] Jun, [facility] [address] [id number] [place] [address] May, [facility] [address] [id number] [place] [address] May, [facility] [address] [id number] [place] [address] Apr, [facility] [address] [id number] [place] [address] Feb, [facility] [address] [id number] [place] [address] Feb, [facility] [address] [id number] [place] [address] Jan, [facility] [address] [id number] [place] [address] Dec, [facility] [address] [id number] [place] [address] November, [facility] [address] [id number] [place] [address] November, [facility] [address] [facility] [id number] [place] [address] November, [facility] [address] [id number] [place] [address] Oct, [facility] [address] [id number] [place] [address] Oct, [facility] [address] [id number] [place] [address] Oct, [facility] [address] [id number] [place] [address] Oct, [facility] [address] [id number] [place] [address] Oct, [facility] [address] [id number] [place] [address] Oct, [facility] [address] [id number] [place] [address] Oct, [facility] [address] [id number] [place] [address] Oct, [facility] [address] [id number] [place] [address] Sep, [facility] [address] [id number] [place] [address] Sep, [facility] [address] [id number] [place] [address] Aug, [facility] [address] [id number] [place] [address] Aug, [facility] [address] [id number] [place] [address] Jul, [facility] [address] [id number] [place] [address] Jul, [facility] [address] [id number] [place] [address] Jul, [facility] [address] [id number] [place] [address] May, [facility] [address] [id number] [place] [address] May, [facility] [address] [id number] [place] [address] Apr, [facility] [address] [id number] [place] [address] Apr, [facility] [address] [id number] [place] [address] 24 Mar, 2012 [facility] [address] [id number] [place] [address] Mar, [facility] [address] [id number] [place] [address] Mar, [facility] [address] [id number] [place] [address] Feb, [facility] [address] [id number] [place] [address] Jan, [facility] [address] [id number] [place] [address] Jan, [facility] [address] [id number] [place] [address] Jan, [facility] [address] [id number] [place] [address] Jan, [facility] [address] [id number] [place] [address] Dec, [facility] [address] [id number] [place] [address] Dec, [facility] [address] [id number] [place] [address] Dec, [facility] [address] [id number] [place] [address] Dec, [facility] [address] [id number] [place] [address] Dec, [facility] [address] [id number] [place] [address] Dec, [facility] [address] [id number] [place] [address] November, [facility] [address] [id number] [place] [address] Jun, [facility] [id number] [place] [address] Jun, [facility] [address] [place] [id number] [place] [address] May, [facility] [address] [address] Jan, [facility] [address] [id number] [place] [address] May, [facility] [address] [id number] [place] [address] May, [facility] [address] [id number] [place] [address] Apr, [facility] [address] [place] [id number] [place] [address] Oct, IMMUNIZATIONS No Known Immunizations SOCIAL HISTORY [...]
--- OUTSIDE RECORDS SUMMARY | 2019-10-07 21:15 | XMS REPORT | Continuity of Care Document ---
Author Organization Unknown Address Unknown Phone Unavailable Allergies Active Description Code Type Severity Reaction Onset Reported/Identified Relationship to Patient Clinical Status Yes Demerol Drug Allergy 02/03/2010 Yes Demerol Drug Allergy N/A N/A 02/03/2010 Yes meperidine [id number] Drug Allerg y Unknown N/A 08/16/2013 Medications There is no data. Problems Date Dx Coded Attending Type Code Diagnosis Diagnosed By 04/03/2008 KRYSTAL SUAREZ DO 244.9 HYPOTHYROIDISM 04/03/2008 KRYSTAL SUAREZ DO K 250.02 DIABETES MELLITUS POORLY CONTROLLED 04/03/2008 KRYSTAL SUAREZ DO K 272.4 HYPERLIPIDEMIA HYPERLIPOPROTEINEMIAS (Old Classification) 04/03/2008 KRYSTAL SUAREZ DO K 401.1 ESSENTIAL HYPERTENSION BENIGN 04/03/2008 MARIANA SUAREZ DOA K 791.0 PROTEINURIA 04/03/2008 MARIANA SUAREZ DOA K 244.9 HYPOTHYROIDISM 04/03/2008 MARIANA SUAREZ DOA K 250.02 DIABETES MELLITUS POORLY CONTROLLED 04/03/2008 MARIANA SUAREZ DOA K 272.4 HYPERLIPIDEMIA HYPERLIPOPROTEINEMIAS (Old Classification) 04/03/2008 MARIANA SUAREZ DOA K 401.1 ESSENTIAL HYPERTENSION BENIGN 04/03/2008 MARIANA SUAREZ DOA K 791.0 PROTEINURIA 04/03/2008 MARIANA SUAREZ DOA K 244.9 HYPOTHYROIDISM 04/03/2008 MARIANA SUAREZ DOA K 250.02 DIABETES MELLITUS POORLY CONTROLLED 04/03/2008 MARIANA SUAREZ DOA K 272.4 HYPERLIPIDEMIA HYPERLIPOPROTEINEMIAS (Old Classification) 04/03/2008 MARIANA SUAREZ DOA K 401.1 ESSENTIAL HYPERTENSION BENIGN 04/03/2008 ERICK HOGAN KRYSTAL K 791.0 PROTEINURIA 04/03/2008 244.9 HYPO THYROIDISM 04/03/2008 250.02 PRIYA BETES MELLITUS POORLY CONTROLLED 04/03/2008 272.4 HYPE RLIPIDEMIA HYPERLIPOPROTEINEMIAS (Old Classification) 04/03/2008 401.1 ESSE NTIAL HYPERTENSION BENIGN 04/03/2008 791.0 PROT EINURIA 04/03/2008 ROBERTO HALL MD 244.9 HYPOTHYROIDISM 04/03/2008 ROBERTO HALL MD 250.02 DIABETES MELLITUS POORLY CONTROLLED 04/03/2008 ROBERTO HALL MD 272.4 HYPERLIPIDEMIA HYPERLIPOPROTEINEMIAS (Old Classificati on) 04/03/2008 ROBERTO HALL MD 401.1 ESSENTIAL HYPERTENSION BENIGN 04/03/2008 ROBERTO HALL MD 791.0 PROTEINURIA 04/03/2008 ROBERTO HALL MD 244.9 HYPOTHYROIDISM 04/03/2008 ROBERTO HALL MD 250.02 DIABETES MELLITUS POORLY CONTROLLED 04/03/2008 ROBERTO HALL MD 272.4 HYPERLIPIDEMIA HYPERLIPOPROTEINEMIAS (Old Classificati on) 04/03/2008 ROBERTO HALL MD 401.1 ESSENTIAL HYPERTENSION BENIGN 04/03/2008 ROBERTO HALL MD 791.0 PROTEINURIA 04/03/2008 ROBERTO HALL MD 244.9 HYPOTHYROIDISM 04/03/2008 ROBERTO HALL MD 250.02 DIABETES MELLITUS POORLY CONTROLLED 04/03/2008 ROBERTO HALL MD 272.4 HYPERLIPIDEMIA HYPERLIPOPROTEINEMIAS (Old Classificati on) 04/03/2008 ROBERTO HALL MD 401.1 ESSENTIAL HYPERTENSION BENIGN 04/03/2008 ROBERTO HALL MD 791.0 PROTEINURIA 04/03/2008 244.9 HYPO THYROIDISM 04/03/2008 250.02 PRIYA BETES MELLITUS POORLY CONTROLLED 04/03/2008 272.4 HYPE RLIPIDEMIA HYPERLIPOPROTEINEMIAS (Old Classification) 04/03/2008 401.1 ESSE NTIAL HYPERTENSION BENIGN 04/03/2008 791.0 PROT EINURIA 04/03/2008 CAROLINE BRITT APRN R 244.9 HYPOTHYROIDISM 04/03/2008 CAROLINE BRITT APRN R 250.02 DIABETES MELLITUS POORLY CONTROLLED 04/03/2008 CAROLINE BRITT APRN R 272.4 HYPERLIPIDEMIA HYPERLIPOPROTEINEMIAS (Old Classificati on) 04/03/2008 CAROLINE BRITT APRN R 401.1 ESSENTIAL HYPERTENSION BENIGN 04/03/2008 CAROLINE BRITT APRN R 791.0 PROTEINURIA 04/03/2008 SUAREZ DO, KRYSTAL K 244.9 HYPOTHYROIDISM 04/03/2008 SUAREZ DO, KRYSTAL K 250.02 DIABETES MELLITUS POORLY CONTROLLED 04/03/2008 SUAREZ DO, KRYSTAL K 272.4 HYPERLIPIDEMIA HYPERLIPOPROTEINEMIAS (Old Classification) 04/03/2008 SUAREZ DO, KRYSTAL K 401.1 ESSENTIAL HYPERTENSION BENIGN 04/03/2008 SUAREZ DO, KRYSTAL K 791.0 PROTEINURIA 10/23/2008 SUAREZ DO, KRYSTAL K 250.00 DIABETES MELLITUS TYPE 2 10/23/2008 SUAREZ DO, KRYSTAL K 250.00 DIABETES MELLITUS TYPE 2 10/23/2008 SUAREZ DO, KRYSTAL K 250.00 DIABETES MELLITUS TYPE 2 10/23/2008 250.00 PRIYA BETES MELLITUS TYPE 2 10/23/2008 ROBERTO HALL MD 250.00 DIABETES MELLITUS TYPE 2 10/23/2008 ROBERTO HALL MD 250.00 DIABETES MELLITUS TYPE 2 10/23/2008 ROBERTO HALL MD 250.00 DIABETES MELLITUS TYPE 2 10/23/2008 250.00 PRIYA BETES MELLITUS TYPE 2 10/23/2008 CAROLINE BRITT APRN R 250.00 DIABETES MELLITUS TYPE 2 10/23/2008 SUAREZ DO, KRYSTAL K 250.00 DIABETES MELLITUS TYPE 2 11/04/2008 SUAREZ DO, KRYSTAL K 789.00 abdominal pain 11/04/2008 SUAREZ DO, KRYSTAL K 789.00 abdominal pain 11/04/2008 SUAREZ DO, KRYSTAL K 789.00 abdominal pain 11/04/2008 789.00 abd ominal pain 11/04/2008 ROBERTO HALL MD 789.00 abdominal pain 11/04/2008 ROBERTO HALL MD 789.00 abdominal pain 11/04/2008 ROBERTO HALL MD 789.00 abdominal pain 11/04/2008 789.00 abd ominal pain 11/04/2008 CELSA BRITT APRNINA R 789.00 abdominal pain 11/04/2008 SUAREZ DO, KRYSTAL K 789.00 abdominal pain 12/11/2008 SUAREZ DO KRYSTAL K NODX No Diagnosis 12/11/2008 SUAREZ DO KRYSTAL K NODX No Diagnosis 12/11/2008 SUAREZ DO KRYSTAL K NODX No Diagnosis 12/11/2008 NODX No Di agnosis 12/11/2008 ROBERTO HALL MD NODX No Diagnosis 12/11/2008 ROBERTO HALL MD NODX No Diagnosis 12/11/2008 ROBERTO HALL MD NODX No Diagnosis 12/11/2008 NODX No Di agnosis 12/11/2008 CAROLINE BRITT APRN R N ODX No Diagnosis 12/11/2008 KRYSTAL SUAREZ DO K NODX No Diagnosis 08/26/2009 ERICK HOGAN KRYSTAL K 466.0 Acute Bronchitis 08/26/2009 MARIANA SUAREZ DOA K 493.12 Asthma Intrinsic - With Acute Exacerbation 08/26/2009 EIRCK HOGAN KRYSTAL K 466.0 Acute Bronchitis 08/26/2009 MARIANA SUAREZ DOA K 493.12 Asthma Intrinsic - With Acute Exacerbation 08/26/2009 ERICK HOGAN KRYSTAL K 466.0 Acute Bronchitis 08/26/2009 MARIANA SUAREZ DOA K 493.12 Asthma Intrinsic - With Acute Exacerbation 08/26/2009 466.0 Acut e Bronchitis 08/26/2009 493.12 Ast hma Intrinsic - With Acute Exacerbation 08/26/2009 ROBERTO HALL MD 466.0 Acute Bronchitis 08/26/2009 ROBERTO HALL MD 493.12 Asthma Intrinsic - With Acute Exacerbation 08/26/2009 ROBERTO HALL MD 466.0 Acute Bronchitis 08/26/2009 ROBERTO HALL MD 493.12 Asthma Intrinsic - With Acute Exacerbation 08/26/2009 ROBERTO HALL MD 466.0 Acute Bronchitis 08/26/2009 ROBERTO HALL MD 493.12 Asthma Intrinsic - With Acute Exacerbation 08/26/2009 466.0 Acut e Bronchitis 08/26/2009 493.12 Ast hma Intrinsic - With Acute Exacerbation 08/26/2009 CAROLINE BRITT APRN R 466.0 Acute Bronchitis 08/26/2009 CAROLINE BRITT APRN R 493.12 Asthma Intrinsic - With Acute Exacerbation 08/26/2009 MARIANA SUAREZ DOA K 466.0 Acute Bronchitis 08/26/2009 MARIANA SUAREZ DOA K 493.12 Asthma Intrinsic - With Acute Exacerbation 01/01/2010 Ot 729.5 02/03/2010 MARIANA SUAREZ DOA K 493.90 ASTHMA 02/03/2010 ERICK HOGAN KRYSTAL K 493.90 ASTHMA 02/03/2010 ERICK HOGAN KRYSTAL K 493.90 ASTHMA 02/03/2010 493.90 ASTHMA 02/03/2010 ROBERTO HALL MD 493.90 ASTHMA 02/03/2010 ROBERTO HALL MD 493.90 ASTHMA 02/03/2010 ROBERTO HALL MD 493.90 ASTHMA 02/03/2010 493.90 ASTHMA 02/03/2010 CAROLINE BRITT APRN 493.90 ASTHMA 02/03/2010 SUAREZ DO KRYSTAL K 493.90 ASTHMA 05/23/2010 Ot 845.00 05/23/2010 Ot 959.7 05/23/2010 Ot E000.8 05/23/2010 Ot E849.0 05/23/2010 Ot E927.8 12/15/2010 SUAREZ DO KRYSTAL K 477.9 ALLERGIC RHINITIS 12/15/2010 SUAREZ DO KRYSTAL K 477.9 ALLERGIC RHINITIS 12/15/2010 SUAREZ DO KRYSTAL K 477.9 ALLERGIC RHINITIS 12/15/2010 477.9 CINDY RGIC RHINITIS 12/15/2010 ROBERTO HALL MD 477.9 ALLERGIC RHINITIS 12/15/2010 ROBERTO HALL MD 477.9 ALLERGIC RHINITIS 12/15/2010 ROBERTO HALL MD 477.9 ALLERGIC RHINITIS 12/15/2010 477.9 CINDY RGIC RHINITIS 12/15/2010 CAROLINE BRITT APRN R 477.9 ALLERGIC RHINITIS 12/15/2010 SUAREZ DO KRYSTAL K 477.9 ALLERGIC RHINITIS 06/17/2011 Ot 595.9 06/17/2011 Ot 788.1 06/19/2011 SUAREZ DO KRYSTAL K 296.90 MOOD DISORDER 06/19/2011 SUAREZ DO KRYSTAL K 599.70 HEMATURIA 06/19/2011 SUAREZ DO, KRYSTAL K 296.90 MOOD DISORDER 06/19/2011 SUAREZ DO, KRYSTAL K 599.70 HEMATURIA 06/19/2011 SUAREZ DO, KRYSTAL K 296.90 MOOD DISORDER 06/19/2011 SUAREZ DO, KRYSTAL K 599.70 HEMATURIA 06/19/2011 296.90 MOO D DISORDER 06/19/2011 599.70 HEM ATURIA 06/19/2011 ROBERTO HALL MD 296.90 MOOD DISORDER 06/19/2011 ROBERTO HALL MD 599.70 HEMATURIA 06/19/2011 ROBERTO HALL MD 296.90 MOOD DISORDER 06/19/2011 ROBERTO HALL MD 599.70 HEMATURIA 06/19/2011 ROBERTO HALL MD 296.90 MOOD DISORDER 06/19/2011 ROBERTO HALL MD 599.70 HEMATURIA 06/19/2011 296.90 MOO D DISORDER 06/19/2011 599.70 HEM ATURIA 06/19/2011 CAROLINE BRITT APRN R 296.90 MOOD DISORDER 06/19/2011 CAROLINE BRITT APRN R 599.70 HEMATURIA 06/19/2011 KRYSTAL SUAREZ DO K 296.90 MOOD DISORDER 06/19/2011 KRYSTAL SUAREZ DO 599.70 HEMATURIA 12/15/2011 Ot 244.9 12/15/2011 Ot 250.00 12/15/2011 Ot 272.4 12/15/2011 Ot 276.1 12/15/2011 Ot 278.00 12/15/2011 Ot 300.00 12/15/2011 Ot 305.1 12/15/2011 Ot 311 12/15/2011 Ot 401.9 12/15/2011 Ot 427.89 12/15/2011 Ot 493.90 12/15/2011 Ot 728.88 12/15/2011 Ot 786.59 12/15/2011 Ot V85.39 12/21/2011 KRYSTAL SUAREZ DO 276.1 HYPONATREMIA 12/21/2011 KRYSTAL SUAREZ DO K 276.1 HYPONATREMIA 12/21/2011 KRYSTAL SUAREZ DO K 276.1 HYPONATREMIA 12/21/2011 276.1 HYPO NATREMIA 12/21/2011 ROBERTO HALL MD 276.1 HYPONATREMIA 12/21/2011 ROBERTO HALL MD 276.1 HYPONATREMIA 12/21/2011 ROBERTO HALL MD 276.1 HYPONATREMIA 12/21/2011 276.1 HYPO NATREMIA 12/21/2011 CAROLINE BRITT APRN R 276.1 HYPONATREMIA 12/21/2011 KRYSTAL SUAREZ DO K 276.1 HYPONATREMIA 12/27/2011 KRYSTAL SUARZE DO K 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 12/27/2011 KRYSTAL SUAREZ DO K 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 12/27/2011 KRYSTAL SUAREZ DO K 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 12/27/2011 300.21 AGO RAPHOBIA WITH PANIC DISORDER 12/27/2011 ROBERTO HALL MD 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 12/27/2011 ROBERTO HALL MD 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 12/27/2011 ROBERTO HLAL MD 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 12/27/2011 300.21 AGO RAPHOBIA WITH PANIC DISORDER 12/27/2011 CAROLINE BRITT APRN R 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 12/27/2011 SUAREZ DO, KRYSTAL K 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 01/05/2012 SUAREZ DO, KRYSTAL K 268.9 VITAMIN D DEFICIENCY 01/05/2012 SUAREZ DO, KRYSTAL K 268.9 VITAMIN D DEFICIENCY 01/05/2012 SUAREZ DO, KRYSTAL K 268.9 VITAMIN D DEFICIENCY 01/05/2012 268.9 GATO MIN D DEFICIENCY 01/05/2012 ROBERTO HALL MD 268.9 VITAMIN D DEFICIENCY 01/05/2012 ROBERTO HALL MD 268.9 VITAMIN D DEFICIENCY 01/05/2012 ROBERTO HALL MD 268.9 VITAMIN D DEFICIENCY 01/05/2012 268.9 GATO MIN D DEFICIENCY 01/05/2012 CAROLINE BRITT APRN R 268.9 VITAMIN D DEFICIENCY 01/05/2012 SUAREZ DO, KRYSTAL K 268.9 VITAMIN D DEFICIENCY 01/26/2012 SUAREZ DO, KRYSTAL K 300.3 AN OBCESS COMP DIS 01/26/2012 SUAREZ DOMARIANAA K 300.3 AN OBCESS COMP DIS 01/26/2012 SUAREZ DO KRYSTAL K 300.3 AN OBCESS COMP DIS 01/26/2012 300.3 AN O BCESS COMP DIS 01/26/2012 ROBERTO HALL MD 300.3 AN OBCESS COMP DIS 01/26/2012 ROBERTO HALL MD 300.3 AN OBCESS COMP DIS 01/26/2012 ROBERTO HALL MD 300.3 AN OBCESS COMP DIS 01/26/2012 300.3 AN O BCESS COMP DIS 01/26/2012 CAROLINE BRITT APRN R 300.3 AN OBCESS COMP DIS 01/26/2012 SUAREZ DOMARIANAA K 300.3 AN OBCESS COMP DIS 02/24/2012 SUAREZ DO, KRYSTAL K 300.02 AN GEN ANXIETY 02/24/2012 KRYSTAL SUAREZ DO 300.02 AN GEN ANXIETY 02/24/2012 KRYSTAL SUAREZ DO 300.02 AN GEN ANXIETY 02/24/2012 300.02 AN GEN ANXIETY 02/24/2012 ROBERTO HALL MD 300.02 AN GEN ANXIETY 02/24/2012 ROBERTO HALL MD 300.02 AN GEN ANXIETY 02/24/2012 ROBERTO HALL MD 300.02 AN GEN ANXIETY 02/24/2012 300.02 AN GEN ANXIETY 02/24/2012 CAROLINE BRITT APRN 300.02 AN GEN ANXIETY 02/24/2012 KRYSTAL SUAREZ DO 300.02 AN GEN ANXIETY 03/28/2012 KRYSTAL SUAREZ DO V04.81 FLU DX (3 YRS AND ABOVE, IM) 03/28/2012 KRYSTAL SUAREZ DO V04.81 FLU DX (3 YRS AND ABOVE, IM) 03/28/2012 KRYSTAL SUAREZ DO V04.81 FLU DX (3 YRS AND ABOVE, IM) 03/28/2012 V04.81 FLU DX (3 YRS AND ABOVE, IM) 03/28/2012 ROBERTO HALL MD V04.81 FLU DX (3 YRS AND ABOVE, IM) 03/28/2012 ROBERTO HALL MD V04.81 FLU DX (3 YRS AND ABOVE, IM) 03/28/2012 ROBERTO HALL MD V04.81 FLU DX (3 YRS AND ABOVE, IM) 03/28/2012 V04.81 FLU DX (3 YRS AND ABOVE, IM) 03/28/2012 CAROLINE BRITT APRN V04.81 FLU DX (3 YRS AND ABOVE, IM) 03/28/2012 KRYSTAL SUAREZ DO V04.81 FLU DX (3 YRS AND ABOVE, IM) 09/27/2012 KRYSTAL SUAREZ DO 782.1 RASH 09/27/2012 KRYSTAL SUAREZ DO 782.1 RASH 09/27/2012 782.1 RASH 09/27/2012 ROBERTO HALL MD 782.1 RASH 09/27/2012 ROBERTO HALL MD 782.1 RASH 09/27/2012 ROBERTO HALL MD 782.1 RASH 09/27/2012 CAROLINE BRITT APRN 782.1 RASH 09/27/2012 SUAREZ , KRYSTAL K 782.1 RASH 10/18/2012 SUAREZ DO, KRYSTAL K 729.1 MYALGIA AND MYOSITIS UNSPECIFIED 10/18/2012 ERICK HOGAN, KRYSTAL K 729.1 MYALGIA AND MYOSITIS UNSPECIFIED 10/18/2012 729.1 MYAL NIKOLE AND MYOSITIS UNSPECIFIED 10/18/2012 ROBERTO HALL MD 729.1 MYALGIA AND MYOSITIS UNSPECIFIED 10/18/2012 ROBERTO HALL MD 729.1 MYALGIA AND MYOSITIS UNSPECIFIED 10/18/2012 ROBERTO HALL MD 729.1 MYALGIA AND MYOSITIS UNSPECIFIED 10/18/2012 CAROLINE BRITT APRN R 729.1 MYALGIA AND MYOSITIS UNSPECIFIED 10/18/2012 SUAREZ , KRYSTAL K 729.1 MYALGIA AND MYOSITIS UNSPECIFIED 03/01/2013 ROBERTO HALL MD 789.01 abdominal pain in the right upper belly (RUQ) 03/01/2013 ROBERTO HALL MD 789.01 abdominal pain in the right upper belly (RUQ) 03/01/2013 ROBERTO HALL MD 789.01 abdominal pain in the right upper belly (RUQ) 03/01/2013 CAROLINE BRITT APRN R 789.01 abdominal pain in the right upper belly (RUQ) 03/01/2013 KRYSTAL SUAREZ DO K 789.01 abdominal pain in the right upper belly (RUQ) 08/17/2013 LAURE MACIAS, [place] Patel Ot 244 .9 08/17/2013 LAURE MACIAS, [place] Patel Ot 250.00 08/17/2013 LAURE MACIAS, [place] Patel Ot 272 .4 08/17/2013 LAURE MACIAS, [place] Patel Ot 288.60 08/17/2013 LAURE MACIAS, [place] Patel Ot 300.00 08/17/2013 LAURE MACIAS, [place] Patel Ot 401 .9 08/17/2013 LAURE MACIAS, [place] Patel Ot 724 .5 08/17/2013 LAURE MACIAS, [place] Patel Ot 789.01 08/17/2013 LAURE MACIAS, [place] Patel Ot V04.81 08/24/2013 ISABEL MACIAS, ROBERTO Kelley 511.0 PLEURISY WITHOUT EFFUSION OR CURRENT TUBERCULOSIS 08/24/2013 ISABEL MACIAS, ROBERTO Kelley 511.0 PLEURISY WITHOUT EFFUSION OR CURRENT TUBERCULOSIS 08/24/2013 LORENZA RODASN, CAROLINE R 511.0 PLEURISY WITHOUT EFFUSION OR CURRENT TUBERCULOSIS 08/24/2013 SUAREZ DO, KRYSTAL K 511.0 PLEURISY WITHOUT EFFUSION OR CURRENT TUBERCULOSIS 05/06/2014 SUAREZ DO, KRYSTAL K 786.2 COUGH 06/01/2014 ISABEL MACIAS, ROBERTO Kelley Ot 786.2 06/01/2014 ISABEL MACIAS, ROBERTO Kelley Ot 786.52 06/01/2014 CARLOS DO, WINSOME K Ot 486 PNEUMONIA, ORGANISM NOS 06/01/2014 CARLOS DO, WINSOME K Ot 786.50 CHEST PAIN NOS 04/15/2015 CARLOS DO, WINSOME K Ot 250.00 DIAB DAMIAN WO COMPL, TYPE II OR UNSPEC TY 04/15/2015 CARLOS DO, WINSOME K Ot 276.1 HYPOSMOLALITY 04/15/2015 CARLOS DO, WINSOME K Ot 599.0 URIN TRACT INFECTION NOS 04/15/2015 CARLOS DO, WINSOME K Ot 789.09 ABDOMINAL PAIN, OTHER SPECIFIED SITE 04/15/2015 CARLOS DO, WINSOME K Ot V58.69 OTH MED,LT,CURRENT USE 03/24/2019 PEDRITO GRIJALVA MD Ot E03 .9 HYPOTHYROIDISM, UNSPECIFIED 03/24/2019 PEDRITO GRIJALVA MD Ot E11.65 TYPE 2 DIABETES MELLITUS WITH HYPERGLYCE 03/24/2019 PEDRITO GRIJALVA MD Ot E78.00 PURE HYPERCHOLESTEROLEMIA, UNSPECIFIED 03/24/2019 PEDRITO GRIJALVA MD Ot E86 .0 DEHYDRATION 03/24/2019 PEDRITO GRIJALVA MD Ot E87 .1 HYPO-OSMOLALITY AND HYPONATREMIA 03/24/2019 PEDRITO GRIJALVA MD Ot F17.210 NICOTINE DEPENDENCE, CIGARETTES, UNCOMPL 03/24/2019 PEDRITO GRIJALVA MD Ot F32 .9 MAJOR DEPRESSIVE DISORDER, SINGLE EPISOD 03/24/2019 PEDRITO GRIJALVA MD Ot F41 .9 ANXIETY DISORDER, UNSPECIFIED 03/24/2019 PEDRITO GRIJALVA MD Ot G45 .9 TRANSIENT CEREBRAL ISCHEMIC ATTACK, UNSP 03/24/2019 PEDRITO GRIJALVA MD, Ot I10 ESSENTIAL (PRIMARY) HYPERTENSION 03/24/2019 PEDRITO GRIJALVA MD, Ot I63 .9 CEREBRAL INFARCTION, UNSPECIFIED 03/24/2019 PEDRITO GRIJALVA MD, Ot I65.02 OCCLUSION AND STENOSIS OF LEFT VERTEBRAL 03/24/2019 PEDRITO GRIJALVA MD, Ot J18 .9 PNEUMONIA, UNSPECIFIED ORGANISM 03/24/2019 PEDRITO GRIJALVA MD, Ot J44 .9 CHRONIC OBSTRUCTIVE PULMONARY DISEASE, U 03/24/2019 PEDRITO GRIJALVA MD, Ot K57.90 DVRTCLOS OF INTEST, PART UNSP, W/O PERF 03/24/2019 PEDRITO GRIJALVA MD, Ot Z79.84 NURSING HOME (CURRENT) USE OF ORAL HYPOGLYC 03/24/2019 PEDRITO GRIJALVA MD, Ot Z85.42 PERSONAL HISTORY OF MALIGNANT NEOPLASM O 03/24/2019 PEDRITO GRIJALVA MD, Ot Z90.710 ACQUIRED ABSENCE OF BOTH CERVIX AND UTER Procedures Code Description [place] [address] ROUT INE VENIPUNCTURE 07/19/2012 29989 CMP 07/19/2012 05059 MICR OALBUMIN 07/19/2012 18032 GATO MIN D 25-HYDROXY (D2,D3, TOTAL) 07/19/2012 39340 CPK 07/19/2012 78991 TSH 07/19/2012 82574 A1C (IN-HOUSE) 07/19/2012 36954 MICR O ALBUMIN-IN HOUSE 07/19/2012 00631 ROUT INE VENIPUNCTURE 10/20/2012 11424 LDH 10/20/2012 ANAANA JUANA ANALYZER (SCREEN) 10/21/2012 36015 ALDOLASE 10/23/2012 70907 MYOGLOBIN 10/23/2012 31114 ROUT INE VENIPUNCTURE 11/23/2012 77696 TSH 11/23/2012 84329 ROUT INE VENIPUNCTURE 03/01/2013 32656 A1C (IN-HOUSE) 03/01/2013 14656 MICR O ALBUMIN-IN HOUSE 03/01/2013 07138 H PY EULA (IN-HOUSE) 03/01/2013 43982 CBC 03/01/2013 54647 CMP 03/01/2013 78650 MICR OALBUMIN 03/01/2013 9781078 GF R CALC (RESULT ONLY) 03/01/2013 65578 LIPASE 03/01/2013 28646 T4 FREE 03/01/2013 88975 TSH 03/01/2013 32411 A1C (IN-HOUSE) 08/24/2013 91532 THER APUTIC INJ SQ/IM 08/24/2013 J1885 NITIN DOL INJ 08/24/[address] C HEST W/DYE 08/24/2013 61971 ROUT INE VENIPUNCTURE 12/12/2013 86274 A1C (IN-HOUSE) 12/12/2013 73254 LIPI D PANEL 12/12/2013 52171 TSH 12/12/2013 95794 OXIMETRY 05/06/2014 96607 A1C (IN-HOUSE) 05/06/2014 Results Test Result Range TSH+Free T4 - 06/09/16 12:06 TSH 0.102 uIU/mL 0.450-4.500 T4,Free(Direct) 1.89 ng/dL 0.82-1.77 Comp. Metabolic Panel (14) - 06/09/16 12 :06 Glucose, Serum 150 mg/dL 65-99 BUN 6 mg/dL 8-27 Creatinine, Serum 0.55 mg/dL 0.57-1.00 eGFR If NonAfricn Am 101 mL/min/1.73 >59 eGFR If Africn Am 116 mL/min/1.73 >5 9 BUN/Creatinine Ratio 11 11-26 Sodium, Serum 129 mmol/L 136-144 Potassium, Serum 4.3 mmol/L 3.5-5.2 Chloride, Serum 89 mmol/L 97-106 Carbon Dioxide, Total 23 mmol/L 18-29 Calcium, Serum 10.1 mg/dL 8.7-10.3 Protein, Total, Serum 6.9 g/dL 6.0-8.5 Albumin, Serum 4.1 g/dL 3.6-4.8 Globulin, Total 2.8 g/dL 1.5-4.5 A/G Ratio 1.5 1.1-2.5 Bilirubin, Total <0.2 mg/dL 0.0-1.2 Alkaline Phosphatase, S 85 IU/L 39-117 AST (SGOT) 14 IU/L 0-40 ALT (SGPT) 15 IU/L 0-32 Lipid Panel - 06/09/16 12:06 Cholesterol, Total 221 mg/dL 100-199 Triglycerides 218 mg/dL 0-149 HDL Cholesterol 48 mg/dL >39 VLDL Cholesterol Anival 44 mg/dL 5-40 LDL Cholesterol Calc 129 mg/dL 0-99 A1C - 10/18/17 11:48 HEMOGLOBIN A1c 8.4 % of total Hgb <5.7 TSH - 12/30/17 13:06 TSH 0.09 mIU/L 0.40-4.50 Complete blood count (CBC) with automate d white blood cell (WBC) differential - 03/22/19 12:38 Blood leukocytes automated count (number/volume) 17.5 10*3/uL 4.3-11.0 Blood erythrocytes automated count (number/volume) 5.66 10*6/uL 4.35-5.85 Venous blood hemoglobin measurement (mass/volume) 16.5 g/dL 11.5-16.0 Blood hematocrit (volume fraction) 48 % 35-52 Automated erythrocyte mean corpuscular volume 85 [ foz_us] 80-99 Automated erythrocyte mean corpuscular h emoglobin (mass per erythrocyte) 29 pg 25-34 Automated erythrocyte mean corpuscular h emoglobin concentration measurement (mass/volume) 34 g/dL 32-36 Automated erythrocyte distribution width ratio 14. 5 % 10.0- 14.5 Automated blood platelet count (count/volume) 409 10*3/uL 130-400 Automated blood platelet mean volume measurement 10.9 [foz_us] 7.4-10.4 Automated blood neutrophils/100 leukocytes 74 % 42-75 Automated blood lymphocytes/100 leukocytes 18 % 12-44 Blood monocytes/100 leukocytes 6 % 0-12 Automated blood eosinophils/100 leukocytes 1 % 0-10 Automated blood basophils/100 leukocytes 1 % 0-10 Blood neutrophils automated count (number/volume) 13.0 10*3 1.8-7.8 Blood lymphocytes automated count (number/volume) 3.1 10*3 1.0-4.0 Blood monocytes automated count (number/volume) 1. 1 10*3 0.0-1.0 Automated eosinophil count 0.2 10*3/uL 0 .0-0.3 Automated blood basophil count (count/volume) 0.1 10*3/uL 0.0-0.1 PT panel in platelet poor plasma by coag ulation assay - 03/22/19 12:38 Prothrombin time (PT) in platelet poor plasma by coagu lation assay 13.3 s 12.2-14.7 INR in platelet poor plasma or blood by coagulation as say 1.0 0.8-1.4 Activated partial thromboplastin time (a PTT) in platelet poor plasma bycoagulation assay - 03/22/19 12:38 Activated partial thromboplastin time (a PTT) in platelet poor plasma bycoagulation assay 35 s 24-35 Comprehensive metabolic panel - 03/22/19 12:38 Serum or plasma sodium measurement (moles/volume) 130 mmol/L 135-145 Serum or plasma potassium measurement (moles/volume) 4.8 mmol/L 3.6-5.0 Serum or plasma chloride measurement (moles/volume) 92 mmol/L 98-107 Carbon dioxide 26 mmol/L 21-32 Serum or plasma anion gap determination (moles/volume) 12 mmol/L 5-14 Serum or plasma urea nitrogen measurement (mass/volume ) 11 mg/dL 7-18 Serum or plasma creatinine measurement (mass/volume) 1.13 mg/dL 0.60-1.30 Serum or plasma urea nitrogen/creatinine mass ratio 10 NRG Serum or plasma creatinine measurement w ith calculation of estimated glomerular filtration rate 48 NRG Serum or plasma glucose measurement (mass/volume) 308 mg/dL 70-105 Serum or plasma calcium measurement (mass/volume) 9.7 mg/dL 8.5-10.1 Serum or plasma total bilirubin measurement (mass/volu me) 0.4 mg/dL 0.1-1.0 Serum or plasma alkaline phosphatase kimberly surement (enzymatic activity/volume) 100 U/L 40-136 Serum or plasma aspartate aminotransfera se measurement (enzymatic activity/volume) 18 U/L 5-34 Serum or plasma alanine aminotransferase measurement (enzymatic activity/volume) 22 U/L 0-55 Serum or plasma protein measurement (mass/volume) 7.8 g/dL 6.4-8.2 Serum or plasma albumin measurement (mass/volume) 4.5 g/dL 3.2-4.5 CALCIUM CORRECTED 9.3 mg/dL 8.5-10.1 Manual absolute plasma cell count - 12/03 12:38 Blood monocytes/100 leukocytes 5 % NRG Manual blood segmented neutrophils/100 leukocytes 77 % NRG Blood band neutrophils/100 leukocytes 4 % NRG Manual blood lymphocytes/100 leukocytes 13 % NRG Manual eosinophils/100 leukocytes in nose 0 % NRG Manual blood basophils/100 leukocytes 1 % NRG Blood erythrocyte morphology finding identification NORMAL NRG Serum or plasma troponin i.cardiac measu rement (mass/volume) - 03/22/19 12:38 Serum or plasma troponin i.cardiac measurement (mass/v olume) < ng/mL <0.028 Fibrin D-dimer FEU measurement in platel et poor plasma (mass/volume) - 03/22/19 12:38 Fibrin D-dimer FEU measurement in platelet poor plasma (mass/volume) 0.66 ug/mL 0.00-0.49 Capillary blood glucose measurement by g lucometer (mass/volume) - 03/22/19 12:39 Capillary blood glucose measurement by glucometer (mas s/volume) 291 mg/dL 70-110 Complete urinalysis with reflex to cultu re - 03/22/19 13:47 Urine color determination YELLOW NRG Urine clarity determination CLEAR NR G Urine pH measurement by test strip 6.5 5-9 Specific gravity of urine by test strip 1.005 1.016-1.022 Urine protein assay by test strip, semi-quantitative 3+ NEGATIVE Urine glucose detection by automated test strip 4+ NEGATIVE Erythrocytes detection in urine sediment by light micr oscopy NEGATIVE NEGATIVE Urine ketones detection by automated test strip NE GATIVE NEGATIVE Urine nitrite detection by test strip NEGATIVE NEGATIVE Urine total bilirubin detection by test strip NEGA TIVE NEGATIVE Urine urobilinogen measurement by automated test strip (mass/volume) NORMAL NORMAL Urine leukocyte esterase detection by dipstick NEG ATIVE NEGATIVE Automated urine sediment erythrocyte cou nt by microscopy (number/high power field) [HPF] NRG Automated urine sediment leukocyte count by microscopy (number/high power field) [HPF] NRG Bacteria detection in urine sediment by light microsco py FEW NRG Squamous epithelial cells detection in u rine sediment by light microscopy 5-10 NRG Crystals detection in urine sediment by light microsco py NONE NRG Casts detection in urine sediment by light microscopy NONE NRG Mucus detection in urine sediment by light microscopy NEGATIVE NRG Complete urinalysis with reflex to culture NO NRG Blood lactic acid measurement (moles/vol ume) - 03/22/19 14:31 Blood lactic acid measurement (moles/volume) 2.61 mmol/L 0.50-2.00 Bacterial blood culture - 03/22/19 14:31 Bacterial blood culture NG NRG Bacterial blood culture - 03/22/19 15:06 Bacterial blood culture NG NRG Serum or plasma lactate measurement (mol es/volume) - 03/22/19 16:35 Serum or plasma lactate measurement (moles/volume) 1.67 mmol/L 0.50-2.00 Capillary blood glucose measurement by g lucometer (mass/volume) - 03/22/19 19:40 Capillary blood glucose measurement by glucometer (mas s/volume) 220 mg/dL 70-110 Capillary blood glucose measurement by g lucometer (mass/volume) - 03/23/19 05:48 Capillary blood glucose measurement by glucometer (mas s/volume) 183 mg/dL 70-110 Complete blood count (CBC) with automate d white blood cell (WBC) differential - 03/23/19 06:25 Blood leukocytes automated count (number/volume) 12.7 10*3/uL 4.3-11.0 Blood erythrocytes automated count (number/volume) 4.99 10*6/uL 4.35-5.85 Venous blood hemoglobin measurement (mass/volume) 14.4 g/dL 11.5-16.0 Blood hematocrit (volume fraction) 43 % 35-52 Automated erythrocyte mean corpuscular volume 86 [ foz_us] 80-99 Automated erythrocyte mean corpuscular h emoglobin (mass per erythrocyte) 29 pg 25-34 Automated erythrocyte mean corpuscular h emoglobin concentration measurement (mass/volume) 34 g/dL 32-36 Automated erythrocyte distribution width ratio 14. 7 % 10.0- 14.5 Automated blood platelet count (count/volume) 363 10*3/uL 130-400 Automated blood platelet mean volume measurement 10.6 [foz_us] 7.4-10.4 Automated blood neutrophils/100 leukocytes 68 % 42-75 Automated blood lymphocytes/100 leukocytes 22 % 12-44 Blood monocytes/100 leukocytes 8 % 0-12 Automated blood eosinophils/100 leukocytes 2 % 0-10 Automated blood basophils/100 leukocytes 1 % 0-10 Blood neutrophils automated count (number/volume) 8.6 10*3 1.8-7.8 Blood lymphocytes automated count (number/volume) 2.8 10*3 1.0-4.0 Blood monocytes automated count (number/volume) 1. 0 10*3 0.0-1.0 Automated eosinophil count 0.3 10*3/uL 0 .0-0.3 Automated blood basophil count (count/volume) 0.1 10*3/uL 0.0-0.1 Comprehensive metabolic panel - 03/23/19 06:25 Serum or plasma sodium measurement (moles/volume) 134 mmol/L 135-145 Serum or plasma potassium measurement (moles/volume) 3.9 mmol/L 3.6-5.0 Serum or plasma chloride measurement (moles/volume) 100 mmol/L 98-107 Carbon dioxide 26 mmol/L 21-32 Serum or plasma anion gap determination (moles/volume) 8 mmol/L 5-14 Serum or plasma urea nitrogen measurement (mass/volume ) 8 mg/dL 7-18 Serum or plasma creatinine measurement (mass/volume) 0.70 mg/dL 0.60-1.30 Serum or plasma urea nitrogen/creatinine mass ratio 11 NRG Serum or plasma creatinine measurement w ith calculation of estimated glomerular filtration rate > NRG Serum or plasma glucose measurement (mass/volume) 176 mg/dL 70-105 Serum or plasma calcium measurement (mass/volume) 9.4 mg/dL 8.5-10.1 Serum or plasma total bilirubin measurement (mass/volu me) 0.3 mg/dL 0.1-1.0 Serum or plasma alkaline phosphatase kimberly surement (enzymatic activity/volume) 91 U/L 40-136 Serum or plasma aspartate aminotransfera se measurement (enzymatic activity/volume) 15 U/L 5-34 Serum or plasma alanine aminotransferase measurement (enzymatic activity/volume) 18 U/L 0-55 Serum or plasma protein measurement (mass/volume) 6.3 g/dL 6.4-8.2 Serum or plasma albumin measurement (mass/volume) 3.8 g/dL 3.2-4.5 CALCIUM CORRECTED 9.6 mg/dL 8.5-10.1 Lipid 1996 panel - 03/23/19 06:25 Serum or plasma triglyceride measurement (mass/volume) 189 mg/dL <150 Serum or plasma cholesterol measurement (mass/volume) 212 mg/dL < 200 Serum or plasma cholesterol in HDL measurement (mass/v olume) 40 mg/dL 40-60 Cholesterol in LDL [mass/volume] in serum or plasma by direct assay 150 mg/dL 1-129 Serum or plasma cholesterol in VLDL measurement (mass/ volume) 38 mg/dL 5-40 Capillary blood glucose measurement by g lucometer (mass/volume) - 03/23/19 09:36 Capillary blood glucose measurement by glucometer (mas s/volume) 234 mg/dL 70-110 Capillary blood glucose measurement by g lucometer (mass/volume) - 03/23/19 14:25 Capillary blood glucose measurement by glucometer (mas s/volume) 190 mg/dL 70-110 Capillary blood glucose measurement by g lucometer (mass/volume) - 03/23/19 19:48 Capillary blood glucose measurement by glucometer (mas s/volume) 223 mg/dL 70-110 Capillary blood glucose measurement by g lucometer (mass/volume) - 03/24/19 05:27 Capillary blood glucose measurement by glucometer (mas s/volume) 172 mg/dL 70-110 Automated blood complete blood count (he mogram) panel - 03/24/19 06:09 Blood leukocytes automated count (number/volume) 11.1 10*3/uL 4.3-11.0 Blood erythrocytes automated count (number/volume) 5.10 10*6/uL 4.35-5.85 Venous blood hemoglobin measurement (mass/volume) 14.9 g/dL 11.5-16.0 Blood hematocrit (volume fraction) 44 % 35-52 Automated erythrocyte mean corpuscular volume 87 [ foz_us] 80-99 Automated erythrocyte mean corpuscular h emoglobin (mass per erythrocyte) 29 pg 25-34 Automated erythrocyte mean corpuscular h emoglobin concentration measurement (mass/volume) 34 g/dL 32-36 Automated erythrocyte distribution width ratio 14. 5 % 10.0- 14.5 Automated blood platelet count (count/volume) 360 10*3/uL 130-400 Automated blood platelet mean volume measurement 10.8 [foz_us] 7.4-10.4 Whole blood basic metabolic panel - 02/02 06:09 Serum or plasma sodium measurement (moles/volume) 135 mmol/L 135-145 Serum or plasma potassium measurement (moles/volume) 4.4 mmol/L 3.6-5.0 Serum or plasma chloride measurement (moles/volume) 100 mmol/L 98-107 Carbon dioxide 25 mmol/L 21-32 Serum or plasma anion gap determination (moles/volume) 10 mmol/L 5-14 Serum or plasma urea nitrogen measurement (mass/volume ) 9 mg/dL 7-18 Serum or plasma creatinine measurement (mass/volume) 0.72 mg/dL 0.60-1.30 Serum or plasma urea nitrogen/creatinine mass ratio 13 NRG Serum or plasma creatinine measurement w ith calculation of estimated glomerular filtration rate > NRG Serum or plasma glucose measurement (mass/volume) 176 mg/dL 70-105 Serum or plasma calcium measurement (mass/volume) 9.8 mg/dL 8.5-10.1 Capillary blood glucose measurement by g lucometer (mass/volume) - 03/24/19 09:35 Capillary blood glucose measurement by glucometer (mas s/volume) 226 mg/dL 70-110 TSH - 04/17/19 15:11 TSH 2.93 mIU/L 0.40-4.50 TSH w/ FREE T4 - 09/20/19 17:20 TSH 44.79 mIU/L 0.40-4.50 T4, FREE 0.3 ng/dL 0.8-1.8 CMP - 09/20/19 17:20 GLUCOSE 188 mg/dL 65-99 UREA NITROGEN (BUN) 10 mg/dL 7-25 CREATININE 0.76 mg/dL 0.50-0.99 eGFR NON-AFR. CZECH 82 mL/min/1.73m2 > OR = 60 eGFR 95 mL/min/1.73m2 > OR = 60 BUN/CREATININE RATIO NOT APPLICABLE (calc) 6-22 SODIUM 129 mmol/L 135-146 POTASSIUM 4.5 mmol/L 3.5-5.3 CHLORIDE 92 mmol/L 98-110 CARBON DIOXIDE 25 mmol/L 20-32 CALCIUM 9.9 mg/dL 8.6-10.4 PROTEIN, TOTAL 6.9 g/dL 6.1-8.1 ALBUMIN 4.3 g/dL 3.6-5.1 GLOBULIN 2.6 g/dL (calc) 1.9-3.7 ALBUMIN/GLOBULIN RATIO 1.7 (calc) 1.0-2. 5 BILIRUBIN, TOTAL 0.3 mg/dL 0.2-1.2 ALKALINE PHOSPHATASE 86 U/L 37-153 AST 13 U/L 10-35 ALT 13 U/L 6-29 Encounters ACCT No. Visit Date/Time Discharge Status Pt. Type Provider Facility Loc./Unit Complaint [id number] 05/06/2014 17:27:00 05/06/2014 23:59: 59 CLS Outpatient KRYSTAL SUAREZ DO [id number] 12/12/2013 09:36:00 12/12/2013 23:59: 59 CLS Outpatient CAROLINE BRITT APRN [id number] 09/21/2013 10:04:00 09/21/2013 23:59: 59 CLS Outpatient ROBERTO HALL MD [id number] 08/24/2013 08:36:00 08/24/2013 23:59: 59 CLS Outpatient ROBERTO HALL MD [id number] 03/01/2013 08:26:00 03/01/2013 23:59: 59 CLS Outpatient ROBERTO HALL MD [id number] 10/20/2012 13:16:00 10/20/2012 23:59: 59 CLS Outpatient KRYSTAL SUAREZ DO [id number] 09/27/2012 09:21:00 09/27/2012 23:59: 59 CLS Outpatient KRYSTAL SUAREZ DO [id number] 07/19/2012 08:42:00 07/19/2012 23:59: 59 CLS Outpatient KRYSTAL SUAREZ DO [id number] 03/28/2012 09:54:00 03/28/2012 23:59:5 9 CLS Outpatient [id number] 11/23/2012 15:39:00 Document Registration [id number] 06/10/2016 08:35:00 Document Registration [id number] 03/22/2019 14:39:00 019 12:20:00 DIS Outpatient VALENTINE MACIAS, PEDRITO Paez [facility] 4TH STROKE LIKE SYMPTOMS [id number] 04/15/2015 18:28:00 015 23:08:00 DIS Emergency CARLOS DOWINSOME [facility] ER ABD MUSCLE SPASMS [id number] 06/01/2014 19:50:00 014 21:51:00 DIS Emergency CARLOS WINSOME [facility] ER RIB PAIN [id number] 08/27/2013 11:26:00 014 23:59:59 CLS Outpatient ISABEL MACIAS, ROBERTO [facility] [id number] 08/16/2013 21:24:00 014 12:00:00 DIS Inpatient LAURE MACIAS, [place] Patel [address] [id number] 12/13/2011 23:35:00 Document Registration [id number] 06/17/2011 10:01:00 Document Registration [id number] 05/23/2010 16:57:00 Document Registration [id number] 01/01/2010 20:55:00 Document Registration [id number] 09/20/2019 16:00:00 09/20/2019 23:59:5 9 CLS Outpatient ANTONINO ZAYAS [facility] [id number] 09/20/2019 16:00:00 Document Registration [id number] 04/17/2019 14:20:00 Document Registration [id number] 12/30/2017 12:40:00 Document Registration [id number] 10/18/2017 11:00:00 Document Registration
--- NOTE | 2019-10-07 21:18 | ED Neurological Problem ---
General Chief Complaint: Neurological Problems Stated Complaint: WEAKNESS,FALL Nursing Triage Note: PATIENT STATES HAS BEEN LEANING TO THE LEFT, SINCE EARLIER THIS MORNING. TAJ VERBALIZED SHE DID FALL. DENIES INJURY Nursing Sepsis Screen: No Definite Risk Source: patient Exam Limitations: no limitations History of Present Illness Date Seen by Provider: Oct 07, 2019 Time Seen by Provider: 21:01 Initial Comments Patient arrives by EMS from home with chief complaint that she started having some weakness all over yesterday and today she's says sometime in the morning she began to have left-sided weakness and had difficulty getting up out of her chair. She was leaning over towards the left. She's had a stroke in the past with no residual effects. She did have some problems with speech and word finding. She lives a home alone and gets around usually with a cane. She says she was so weak she was unable to get up and she was trying to get out of the chair and fell to her left side slumping out of the chair. She denies striking her head. She says, blood thinners. She's not having any cough fever chills, shortness of breath, chest pain or dysuria. She's had no recent travel outside of the [place] in the last 2 weeks. 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 Patient is followed by [facility]. Because of her weakness she has not taken her medications today and EMS remarked that her blood pressure was elevated 180/110. She has a history of hyperlipidemia and hypertension but no history of coronary disease or heart failure. She has a history of diabetes for which she uses metformin only. EMS reports her blood sugar is 188. Patient is a history of COPD but she has not been using any albuterol in the past few days she has not felt she is needed. Allergies and Home Medications Allergies Coded Allergies: meperidine (Verified Allergy, Unknown, 08/16/13) Home Medications Albuterol Sulfate 6.7 Gm Hfa.aer.ad, 2 PUFF INH Q6H PRN for SHORTNESS OF BREATH, (Reported) Atorvastatin Calcium 40 Mg Tablet, 40 MG PO HS Prescribed by: ENEDELIA RUSSO on 03/24/19 1040 Cholecalciferol (Vitamin D3) 1,000 Unit Capsule, 1,000 UNIT PO TID, (Reported) Citalopram Hydrobromide 40 Mg Tablet, 40 MG PO DAILY, (Reported) Clopidogrel Bisulfate 75 Mg Tablet, 75 MG PO DAILY Prescribed by: ENEDELIA RUSSO on 03/24/19 1043 Hydrochlorothiazide 25 Mg Tablet, 25 MG PO DAILY, (Reported) Levothyroxine Sodium 175 Mcg Tablet, 175 MCG PO DAILY, (Reported) Lisinopril 40 Mg Tablet, 40 MG PO DAILY, (Reported) Metformin HCl 1,000 Mg Tablet, 1,000 MG PO BID WITH MEALS, (Reported) Multivitamin 1 Each Tablet, 1 TAB PO HS, (Reported) [place] 3 Polyunsat Fatty Acids 1,000 Mg Cap, 1,000 MG PO DAILY, (Reported) Pioglitazone HCl 30 Mg Tablet, 30 MG PO DAILY, (Reported) Patient Home Medication List Home Medication List Reviewed: Yes Review of Systems Review of Systems Constitutional: No chills, No diaphoresis, No fever Eyes: Denies Blindness, Denies Blurred Vision Ears, Nose, Mouth, Throat: denies ear pain, denies ear discharge Respiratory: No cough, No short of breath Cardiovascular: No chest pain, No edema, No palpitations Gastrointestinal: No abdominal pain; nausea; No vomiting Genitourinary: No discharge, No dysuria Musculoskeletal: No back pain, No joint pain Skin: No pruritus, No rash All Other Systems Reviewed Negative Unless Noted: Yes Past Ejyjwsz-Rwwuyg-Tkwlkv Hx Patient Social History Alcohol Use: Denies Use Recreational Drug Use: No Smoking Status: Current Everyday Smoker Type Used: Cigarettes (0.5 ppd) 2nd Hand Smoke Exposure: Yes Recent Foreign Travel: No Contact w/Someone Who Travel: No Recent Infectious Disease Expo: No Recent Hopitalizations: Yes (PNEUMONIA) Physical Abuse: No Sexual Abuse: No Mistreated: No Immunizations Up To Date Tetanus Booster (TDap): More than 5yrs PED Vaccines UTD: No Date of Pneumonia Vaccine: Jul 18, 2009 Date of Influenza Vaccine: Apr 17, 2019 Past Medical History Surgeries: Yes ( X 2 , BACK SURGERY, BMT'S X 3, ADHESION REMOVAL) Abdominal, Section, Ear Surgery, Hysterectomy, Oophorectomy, Tonsillectomy Respiratory: Yes Asthma, COPD Cardiac: Yes Hypertension Neurological: No Reproductive Disorders: Yes (UTERINE CANCER) Gastrointestinal: Yes Diverticulosis Musculoskeletal: No Endocrine: Yes Hypothyroidsim, Diabetes, Non-Insulin dep Cancer: Yes (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 Psychosocial: Yes Anxiety, Depression Integumentary: No Blood Disorders: No Family Medical History Cancer 03 MOTHER (LIVER CANCER) Congestive heart failure 03 FATHER Family history: Asthma 03 FATHER 09 BROTHER Family history: Cardiovascular disease 03 FATHER Family history: Thyroid disorder 03 FATHER 09 BROTHER 09 BROTHER 09 BROTHER 09 BROTHER 09 SISTER 09 SISTER 09 SISTER 09 SISTER History of - respiratory disease 03 FATHER (COPD, ASTHMA, EMPHYSEMA) 09 BROTHER 09 BROTHER 09 BROTHER 09 BROTHER 09 SISTER 09 SISTER 09 SISTER 09 SISTER Asthma, Heart Disease, Cancer, COPD, Diabetes Physical Exam Vital Signs Vital Signs - First Documented 10/07/19 10/07/19 10/08/19 21:05 23:20 00:03 Temp 36.7 Pulse 93 Resp 22 B/P (MAP) 129/88 (102) Pulse Ox 94 O2 Delivery Room Air O2 Flow Rate 2.00 Capillary Refill : Less Than 3 Seconds Height, Weight, BMI Height: 5'2.00" Weight: 234lbs. 4.0oz. 106.181701kh; 43.00 BMI Method:Stated General Appearance: obese, other (history of) HEENT: PERRL/EOMI; No pharynx normal (oropharynx is mildly dry without erythema or injection or exudate) Neck: non-tender, full range of motion, supple, normal inspection Respiratory: no respiratory distress (oxygen saturation 95-98% on room air), no accessory muscle use, wheezing (bilateral expiratory) Cardiovascular: normal peripheral pulses, regular rate, rhythm (90-92), no JVD Peripheral Pulses: 2+ Radial Pulses (R), 2+ Radial Pulses (L) Gastrointestinal: normal bowel sounds, non tender, soft Extremities: normal range of motion, normal inspection, normal capillary refill Neurologic/Psychiatric: spring former machine II-XII nml as tested, alert, normal mood/affect, oriented x 3 Crainal Nerves: normal hearing, PERRL, abnormal speech (halting speech with some word searching) Motor/Sensory: no sensory deficit, pronator drift (L) (upper extremity), weak motor strength LUE, weak motor strength LLE Skin: normal color, warm/dry Stroke Onset of Symptoms Date of Onset of Symptoms: Oct 07, 2019 Onset of Symptoms: No (sometime this morning) Symptoms onset unknown: Yes NIH Stroke Scale Assessment Select: Initial Level of Consciousness: 0=Alert (0), Level of Consciousness- Questions: 0=Answers both month/age (0), LOC Commands: 0=Performs both tasks (0), Gaze: Normal (0), Visual Driver: 0=No visual loss (0), Facial Movement (Facial Paresis): 0=Normal symmetrical mnt (0), Motor Function-Arms Right: 0=No drift (0), Motor Function-Arms Left: 2=Some effort/gravity (2), Motor Function-Legs Right: 2=Some effort/gravity (2), Motor Function-Legs Left: 3=No effort/gravity (3), Limb Ataxia: 1=Present in one limb (1), Sensory: 0=Normal:no loss (0), Best Language: 1=Mild to moderat aphasia (1), Dysarthria: 0=Normal (0), Extinction & Inattention: 0=No abnormality (0), Tot al: 9 Stroke Thrombolytic Exclusion Age 18 or Over: Yes Acute intenal hemorrhage: No History of CVA: Yes Uncontrolled Coagulation Defec: No Intracranial Hemorrhage: No Severe Hypertension: No GI or Bleed: No Subarachnoid Hemorrhage: No Intracranial Neoplasm/Aneurysm: No Oral Anticoagulants: No Surgery or Trauma: No Puncture of Non-Compressible V: No (antiplatelet, Plavix) Recent CPR: No Diabetic Hemorrhagic Retinopat: No Organ Biopsy: No Recent Obstetric Delivery: No Glucose: No (206) Significant Hepatic Dysfunctio: No NIH Stoke Scale >22: No Bacterial Endocarditis: No Pericarditis: No Improving Symptoms: No Platelets: No TPA Contraindication: Yes (well outside the window for TPA to be beneficial) IV - TPa Received IV - TPa Procedure Performed?: No (not administered because the patient is outside the window with her onset of symptoms greater than 12 hours ago.) Progress/Results/Core Measures Results/Orders Lab Results Laboratory Tests Test 10/07/19 21:10 10/07/19 21:16 10/07/19 21:35 10/07/19 21:50 Range/Units White Blood Count 13.7 H 4.3-11.0 10^3/uL Red Blood Count 5.30 4.35-5.85 10^6/uL Hemoglobin 15.9 11.5-16.0 G/DL Hematocrit 46 35-52 % Mean Corpuscular Volume 87 80-99 FL Mean Corpuscular Hemoglobin 30 25-34 PG Mean Corpuscular Hemoglobin Concent 34 32-36 G/DL Red Cell Distribution Width 14.7 H 10.0-14.5 % Platelet Count 389 130-400 10^3/uL Mean Platelet Volume 10.6 H 7.4-10.4 FL Neutrophils (%) (Auto) 65 42-75 % Lymphocytes (%) (Auto) 25 12-44 % Monocytes (%) (Auto) 8 0-12 % Eosinophils (%) (Auto) 2 0-10 % Basophils (%) (Auto) 1 0-10 % Neutrophils # (Auto) 8.9 H 1.8-7.8 X 10^3 Lymphocytes # (Auto) 3.4 1.0-4.0 X 10^3 Monocytes # (Auto) 1.1 H 0.0-1.0 X 10^3 Eosinophils # (Auto) 0.2 0.0-0.3 10^3/uL Basophils # (Auto) 0.1 0.0-0.1 10^3/uL Prothrombin Time 12.7 12.2-14.7 SEC INR Comment 0.9 0.8-1.4 Activated Partial Thromboplast Time 34 24-35 SEC D-Dimer 0.49 0.00-0.49 UG/ML Sodium Level 133 L 135-145 MMOL/L Potassium Level 4.4 3.6-5.0 MMOL/L Chloride Level 95 L 98-107 MMOL/L Carbon Dioxide Level 24 21-32 MMOL/L Anion Gap 14 5-14 MMOL/L Blood Urea Nitrogen 12 7-18 MG/DL Creatinine 0.96 0.60-1.30 MG/DL Estimat Glomerular Filtration Rate 58 BUN/Creatinine Ratio 13 Glucose Level 224 H 70-105 MG/DL Calcium Level 9.8 8.5-10.1 MG/DL Corrected Calcium 8.5-10.1 MG/DL Total Bilirubin 0.2 0.1-1.0 MG/DL Aspartate Amino Transf (AST/SGOT) 26 5-34 U/L Alanine Aminotransferase (ALT/SGPT) 20 0-55 U/L Alkaline Phosphatase 96 40-136 U/L Troponin I < 0.028 <0.028 NG/ML Total Protein 7.5 6.4-8.2 GM/DL Albumin 4.6 H 3.2-4.5 GM/DL Serum Alcohol < 10 <10 MG/DL Glucometer 212 H 70-110 MG/DL Urine Color YELLOW Urine Clarity CLEAR Urine pH 6.0 5-9 Urine Specific [place] >=1.030 1.016-1.022 Urine Protein 3+ H NEGATIVE Urine Glucose (UA) NEGATIVE NEGATIVE Urine Ketones NEGATIVE NEGATIVE Urine Nitrite NEGATIVE NEGATIVE Urine Bilirubin NEGATIVE NEGATIVE Urine Urobilinogen 0.2 < = 1.0 MG/DL Urine Leukocyte Esterase NEGATIVE NEGATIVE Urine RBC (Auto) NEGATIVE NEGATIVE Urine RBC NONE /HPF Urine WBC NONE /HPF Urine Squamous Epithelial Cells NONE /HPF Urine Crystals NONE /LPF Urine Bacteria NEGATIVE /HPF Urine Casts NONE /LPF Urine Mucus SMALL H /LPF Urine Culture Indicated NO Urine Opiates Screen NEGATIVE NEGATIVE Urine Oxycodone Screen NEGATIVE NEGATIVE Urine Methadone Screen NEGATIVE NEGATIVE Urine Propoxyphene Screen NEGATIVE NEGATIVE Urine Barbiturates Screen NEGATIVE NEGATIVE Ur Tricyclic Antidepressants Screen NEGATIVE NEGATIVE Urine Phencyclidine Screen NEGATIVE NEGATIVE Urine Amphetamines Screen NEGATIVE NEGATIVE Urine Methamphetamines Screen NEGATIVE NEGATIVE Urine Benzodiazepines Screen NEGATIVE NEGATIVE Urine Cocaine Screen NEGATIVE NEGATIVE Urine Cannabinoids Screen NEGATIVE NEGATIVE Blood Gas Puncture Site RIGHT RADIAL Blood Gas Patient Temperature 36.7 Arterial Blood pH 7.40 7.37-7.43 Arterial Blood Partial Pressure CO2 41 35-45 MMHG Arterial Blood Partial Pressure O2 63 L 79-93 MMHG Arterial Blood HCO3 25 23-27 MMOL/L Arterial Blood Total CO2 26.5 21.0-31.0 MMOL/L Arterial Blood Oxygen Saturation 92 L 94-100 % Arterial Blood Base Excess 0.9 -2.5-2.5 MMOL/L Hiren Test YES-POS Blood Gas Ventilator Setting NO Blood Gas Inspired Oxygen ROOM AIR My Orders Orders - THERESA GARAY Cbc With Automated Diff (10/07/19 21:11) Protime With Inr (10/07/19 21:11) Partial Thromboplastin Time (10/07/19 21:11) Comprehensive Metabolic Panel (10/07/19 21:11) Fibrin Degradation Products (10/07/19 21:11) Troponin I (10/07/19 21:11) Ua Culture If Indicated (10/07/19 21:11) Chest 1 View, Ap/Pa Only (10/07/19 21:11) Catheter(Urinary) Insert & Ass 03,15 (10/07/19 21:11) Ekg Tracing (10/07/19 21:11) Nothing By Mouth (10/08/19 Breakfast) Accucheck Stat ONCE (10/07/19 21:11) Ed Iv/Invasive Line Start (10/07/19 21:11) Ed Iv/Invasive Line Start (10/07/19 21:11) Vital Signs Stroke Patient Q15M (10/07/19 21:11) O2 (10/07/19:) Intake & Output 06,14,22 (10/07/19 21:11) Monitor-Rhythm Ecg Trace Only (10/07/19 21:11) Dysphagia Screening Tool (10/07/19:) Lipid Panel (10/08/19 06:00) Ct Angio Head/Neck (10/07/19 21:11) Ed Iv/Invasive Line Start (10/07/19:19) Ns Iv 500 Ml (Sodium Chloride 0.9%) (10/07/19:) Ondansetron Injection (Zofran Injectio (10/07/19 21:30) Albuterol/Ipra Inhalation Soln (Duoneb I (10/07/19 21:30) Svn Small Volume Nebulizer (10/07/19:) Ct Cervical Spine Wo (10/07/19 21:30) Drug Screen Stat (Urine) (10/07/19 21:30) Alcohol (10/07/19 21:30) Arterial Blood Gas (10/07/19 21:52) Iohexol Injection (Omnipaque 350 Mg/Ml 1 (10/07/19 23:00) Received Contrast (Hold Metformin- Contr (10/07/19 23:00) Ns (Ivpb) (Sodium Chloride 0.9% Ivpb Bag (10/07/19 23:00) Albuterol/Ipra Inhalation Soln (Duoneb I (10/07/19 23:53) Medications Given in ED Current Medications Medications Dose Ordered Sig/Levi Route Start Time Stop Time Status Last Admin Dose Admin Albuterol/ Ipratropium 3 ml ONCE ONCE INH 10/07/19 21:30 10/07/19 21:31 DC 10/07/19 21:37 3 ML Albuterol/ Ipratropium 3 ml STK-MED ONCE .ROUTE 10/07/19 23:53 10/08/19 00:00 DC 10/08/19 00:03 3 ML Ondansetron HCl 4 mg ONCE ONCE IVP 10/07/19 21:30 10/07/19 21:31 DC 10/07/19 21:28 4 MG Sodium Chloride 500 ml @ 0 mls/hr Q0M ONCE IV 10/07/19 21:19 10/07/19 21:21 DC 10/07/19 21:28 500 MLS/HR Vital Signs/I&O 10/07/19 10/07/19 10/07/19 10/08/19 21:05 21:37 23:20 00:03 Temp 36.7 Pulse 93 89 Resp 22 20 B/P (MAP) 129/88 (102) Pulse Ox 94 96 94 94 O2 Delivery Room Air Room Air Room Air Nasal Cannula O2 Flow Rate 2.00 Progress Progress Note #1: Time: 21:24 Progress Note Patient states she did not have any lateralizing deficits but she did have difficulty with speech after her first stroke and she is still having some subtle symptoms of this today. She's having left-sided upper extremity and lower extremity weakness. Could be a recrudescence of her symptoms were could be a repeat stroke. Plan to get a CT with CT angiogram. We'll give her 500 cc normal saline and watch her blood pressure. Presently it is 170/110. Plan to give her some Zofran for her nausea. Plan to get an EKG is an atypical angina could be the source of her symptoms. Infection could also cause a recrudescence of strokelike symptoms so we will get urine, chest x-ray labs. She's not had any cough or fever or chills. Progress Note #2: Time: 22:03 Progress Note ABG shows some mild hypoxia 63 her oxygen sats of been 90-96% on room air. Wheezing is mildly improved after a breathing treatment. CO2 is normal. No acidosis. Labs unremarkable some mild hyponatremia. Blood sugar above 200. Urinalysis and drug screen. Patient has variable usage of her left extremities. She was able to hold her own nebulizer and grab hold of the hand railing earlier. 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 I suspect that some of this might be conversion related. Plan to obtain imaging next. Her blood pressure was coming down to about 160/100 however she's had a subsequent 190/120. If it stays up like this will try some hydralazine. She has not taken her blood pressure medicines today. Progress Note #3: Time: 23:18 Progress Note Left-sided lateralized weakness had completely gone away now. The patient was ta lking on the phone and her daughter holding the phone up with her left arm. And she is moving her legs and then apparently. Suspect that her blood pressure has improved down to 129/88. Perhaps she is experiencing hypertensive encephalopathy. If her labs are unremarkable. We will offer her a stay for inpatient physical therapy if she does not feel safe going home. If she wants to go home then we will try to get her up. Progress Note #4: Time: 23:40 Progress Note Patient's symptoms have completely resolved and her blood pressure is 129/88 consistently low for the past several readings. The patient says she feels much better and would like to do anything to stay in the hospital if possible. We got her up and walk her around her and she says she has a walker at home. She is able to sit on the commode on her own and it herself back into bed with minimal assistance. I would be okay with her returning home and following up this week with her primary care doctor which she said she would do. We have encouraged her to take her blood pressure medicines as prescribed. We've given her strict return precautions if her symptoms are to return. Progress Note #5: Time: 23:51 Progress Note Patient said she was ready to go ahead and walk around unwell but then she dropped her phone the floor and while sitting in a chair she leaned forward to pick it up and slid out of the chair onto her bottom. She denies any pain and with two-person assistance standing she was able to stand up and get back into bed. She has no pain on examination of her back or limbs. She has all 4 limbs moving. She is breathing hard and has some wheezing audible so were going to give her a DuoNeb. After discussing the situation with her she has agreed to stay for physical therapy evaluation would be soler. Patient did not strike her head or loss of consciousness. He was witnessed by nursing staff who was rushing in to the room to try and stop her from bending over. Initial ECG Impression Date: Oct 07, 2019 Initial ECG Impression Time: 21:18 Initial ECG Rate: 95 Initial ECG Rhythm: Normal Sinus Initial ECG Intervals: Normal Initial ECG Impression: Normal Comment Normal sinus rhythm without clinically relevant ST elevation or depression. Diagnostic Imaging Diagonstic Imaging: Xray Plain Films/CT/US/NM/MRI: chest (1v) Comments Unchanged appearance from March 2019. No acute processes noted. Reviewed: Reviewed by Me Diagonstic Imaging: CT (without IV contrast) Plain Films/CT/US/NM/MRI: c-spine, head Comments No evidence of intracranial hemorrhage, mass effect, midline shift or fracture. No C-spine fracture or malalignment. Reviewed: Reviewed by Me Diagonstic Imaging: CT (with IV contrast angiogram) Plain Films/CT/US/NM/MRI: head (head and neck angiogram) Comments Normal head and neck CTA. Reviewed: Reviewed Night Bradleyk Study, Reviewed by Me Departure Communication (Admissions) Time/Spoke to Admitting Phy: 23:53 Discussed the case lab imaging with Dr. Russo and he agrees to observe the patient physical therapy and addiction social worker consult. Impression Primary Impression: Hypertensive encephalopathy Additional Impressions: Physical debility Fall Qualified Codes: W19.XXXA - Unspecified fall, initial encounter Hypoxia Disposition: ADMITTED INPATIENT Condition: Stable Admissions Decision to Admit Reason: Admit from ER (General) Decision to Admit/Date: Oct 07, 2019 Time/Decision to Admit Time: 23:50 Departure-Patient Inst. Referrals: [facility] (PCP/Family) Primary Care Physician Patient Instructions: Malignant Hypertension (DC) THERESA GARAY Oct 07, 2019 21:18
[2019-10-07 21:19] LABS: BASOPHILS # (AUTO) 0.1 10^3/uL (0.0-0.1); BASOPHILS % (AUTO) 1 % (0-10); EOSINOPHILS # (AUTO) 0.2 10^3/uL (0.0-0.3); EOSINOPHILS % (AUTO) 2 % (0-10); HEMATOCRIT 46 % (35-52); HEMOGLOBIN 15.9 G/DL (11.5-16.0); LYMPHOCYTES # (AUTO) 3.4 X 10^3 (1.0-4.0); LYMPHOCYTES % (AUTO) 25 % (12-44); MEAN CORPUSCULAR HEMOGLOBIN 30 PG (25-34); MEAN CORPUSCULAR HGB CONC 34 G/DL (32-36); MEAN CORPUSCULAR VOLUME 87 FL (80-99); MEAN PLATELET VOLUME 10.6 FL (7.4-10.4); MONOCYTES # (AUTO) 1.1 X 10^3 (0.0-1.0); MONOCYTES % (AUTO) 8 % (0-12); NEUTROPHILS # (AUTO) 8.9 X 10^3 (1.8-7.8); NEUTROPHILS % (AUTO) 65 % (42-75); PLATELET COUNT 389 10^3/uL (130-400); RED CELL DISTRIBUTION WIDTH 14.7 % (10.0-14.5); WHITE BLOOD COUNT 13.7 10^3/uL (4.3-11.0)
[2019-10-07] MEDS ORDERED: NS IV 500 ML 500 ML IV ONE (21:19)
[2019-10-07 21:29] LABS: FIBRIN DEGRADATION PRODUCTS 0.49 UG/ML (0.00-0.49); INR 0.9 (0.8-1.4); PROTHROMBIN TIME PATIENT 12.7 SEC (12.2-14.7)
[2019-10-07] MEDS ORDERED: ONDANSETRON 4 MG/2 ML (SDV) Z0FRAN IVP ONE (21:30)
[2019-10-07] MEDS ORDERED: RT-ALBUTEROL/IPRATROPIUM 3 ML (DUONEB) VIAL INH ONE (21:30)
[2019-10-07 21:35] LABS: ALANINE AMINOTRANSFERASE 20 U/L (0-55); ALBUMIN 4.6 GM/DL (3.2-4.5); ALKALINE PHOSPHATASE 96 U/L (40-136); BILIRUBIN,TOTAL 0.2 MG/DL (0.1-1.0); BUN/CREATININE RATIO 13; CALCIUM 9.8 MG/DL (8.5-10.1); CARBON DIOXIDE 24 MMOL/L (21-32); CHLORIDE 95 MMOL/L (98-107); CREATININE SERUM 0.96 MG/DL (0.60-1.30); GFR ESTIMATED 58; GLUCOSE 224 MG/DL (70-105); POTASSIUM 4.4 MMOL/L (3.6-5.0); SODIUM 133 MMOL/L (135-145); TOTAL PROTEIN 7.5 GM/DL (6.4-8.2)
[2019-10-07 21:46] LABS: BILIRUBIN,URINE NEGATIVE (NEGATIVE); CLARITY,URINE CLEAR; COLOR,URINE YELLOW; GLUCOSE, URINE (UA) NEGATIVE (NEGATIVE); KETONES,URINE NEGATIVE (NEGATIVE); LEUKOCYTE ESTERASE ,URINE NEGATIVE (NEGATIVE); NITRITE,URINE NEGATIVE (NEGATIVE); PROTEIN,URINE 3+ (NEGATIVE)
[2019-10-07 21:51] LABS: BACTERIA,URINE NEGATIVE /HPF
[2019-10-07 21:57] LABS: AMPHETAMINE SCREEN, URINE NEGATIVE (NEGATIVE); BARBITURATE SCREEN URINE NEGATIVE (NEGATIVE); BENZODIAZEPINES SCREEN URINE NEGATIVE (NEGATIVE); CANNABINOID SCREEN, URINE NEGATIVE (NEGATIVE); COCAINE SCREEN URINE NEGATIVE (NEGATIVE); METHADONE STAT NEGATIVE (NEGATIVE); METHAMPHETAMINE SCREEN URINE S NEGATIVE (NEGATIVE); OPIATE SCREEN URINE NEGATIVE (NEGATIVE); OXYCODONE STAT NEGATIVE (NEGATIVE); PROPOXYPHENE STAT NEGATIVE (NEGATIVE); TRICYCLIC ANTIDEPRESSANTS SCRE NEGATIVE (NEGATIVE)
[2019-10-07 21:58] LABS: ABG BASE EXCESS 0.9 MMOL/L (-2.5-2.5); ABG OXYGEN SATURATION 92 % (94-100); ABG PCO2 41 MMHG (35-45); ABG PO2 63 MMHG (79-93); ABG TCO2 26.5 MMOL/L (21.0-31.0)
[2019-10-07 22:00] LABS: ALLENS TEST YES-POS; INSPIRED O2 ROOM AIR; PATIENT TEMP 36.7; VENTILATOR NO
[2019-10-07] MEDS ORDERED: NS 100 ML (IVPB) BAG IV ONE (23:00)
[2019-10-07] MEDS ORDERED: HOLD METFORMIN - RECEIVED CONTRAST 20 ML VIAL IV SCH (23:00)
[2019-10-07] MEDS ORDERED: IOHEXOL 350 MG/ML 100 ML (OMNIPAQUE 350) VIAL IV ONE (23:00)
[2019-10-07 23:20] VITALS: BP 129/88
--- NOTE | 2019-10-07 23:51 | NUR ---
Patient was sitting in chair in the room ready to be discharged. When RN looks into room, patient was bending over to picker tender her phone and slid out of the chair, landing on her buttocks. Patient landed with her buttocks on floor and her back up against the bed in a sitting position. Patient did not strike her head and she remains awake and alert. She denies any injuries from the fall. Patient picked up by Dr. Tomas and Sindy ALEMAN and placed back into bed.
[2019-10-07] MEDS ORDERED: RT-ALBUTEROL/IPRATROPIUM 3 ML (DUONEB) VIAL ONE (23:53)
[2019-10-08] VITALS (9 sets, daily range): BP systolic 127–170; BP diastolic 69–88
--- NOTE | 2019-10-08 00:45 | NUR ---
DERECK MUIR admitted to room 420-1, with an admitting diagnosis of PHYSICAL DEBILITY, FALL, HYPOXIA, COPD, HYPOTENSIVE ENCEPHALPATHY, on 10/08/19 from ED via [facility], accompanied by STAFF.DERECK MUIR introduced to surroundings, call light, bed controls, phone, TV, temperature control, lights, meal times, smoking policy, visitor policy, side rail policy, bathrooms and showers. Patient Rights given to patient in the handbook. DERECK MUIR verbalizes understanding that [facility] is not responsible for the loss or damage to any personal effects or valuables that are kept in the patients posession during their hospitalization. .
[2019-10-08] MEDS ORDERED: ONDANSETRON 4 MG/2 ML (SDV) Z0FRAN IV PRN (01:15)
[2019-10-08] MEDS ORDERED: RT-ALBUTEROL/IPRATROPIUM 3 ML (DUONEB) VIAL INH PRN (04:15)
--- NOTE | 2019-10-08 05:45 | Diagnostic Imaging Report ---
INDICATION: Fall, weakness. COMPARISON: 03/22/2019 TECHNIQUE: Single radiograph of the chest dated 10/07/2019 FINDINGS: The cardiac silhouette is enlarged, though stable. No significant pulmonary vascular congestion. The lungs are clear of focal pulmonary opacity. No significant pleural effusion. No pneumothorax. No acute osseous abnormality. IMPRESSION: Similar-appearing examination demonstrating mild cardiomegaly without overt congestive heart failure. Dictated by: Dictated on workstation # [id number]
--- NOTE | 2019-10-08 06:03 | Diagnostic Imaging Report ---
PROCEDURE: CT angiography of the head and CT angiography of the neck with and without contrast. TECHNIQUE: Contiguous noncontrast images were obtained from the skull base through the vertex. After intravenous contrast administration, helical CT angiography of the neck was performed. Source data was reformatted into 3D MIP projections. Delayed post contrast acquisition was also obtained. Auto Exposure Controls were utilized during the CT exam to meet ALARA standards for radiation dose reduction. INDICATION: Fall, weakness. COMPARISON: 03/22/2019 FINDINGS: No intracranial hemorrhage. No intracranial mass, mass effect, midline shift, herniation, hydrocephalus, or extra-axial fluid collection. Periventricular and subcortical white matter hypodensities are present, appearing relatively similar to the prior examination. No definite CT evidence of an acute ischemic infarction. The orbits are unremarkable. Partial opacification of some right mastoid air cells. Otherwise, the paranasal sinuses are clear. The calvarium and extracalvarial soft tissues are unremarkable. No enhancing intracranial mass lesion. The salivary glands are unremarkable. Muscles of mastication are unremarkable. The epiglottis and aryepiglottic folds are unremarkable. 0.7 cm right upper lobe pulmonary nodule is present. Additional sub-6 mm pulmonary nodules are identified bilaterally. No pneumothorax. A four-vessel aortic arch is present with the left vertebral artery arising directly from the aortic arch. Approximately 60-70% narrowing is noted involving the most distal aspect of the left vertebral artery just proximal to the confluence with the basilar artery. Tortuosity of the bilateral internal carotid arteries with a retropharyngeal course, particularly on the right. No additional evidence of occlusion, hemodynamically significant stenosis, dissection, aneurysm, or pseudoaneurysm involving the large arterial structures of the head and neck. No acute osseous abnormality with scattered osseous degenerative changes. 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 No new acute intracranial abnormality. Background chronic small vessel white matter ischemic disease. If there is clinical concern for a recent infarction, further evaluation with MRI of brain would be recommended. Dictated by: Dictated on workstation # [id number]
--- NOTE | 2019-10-08 06:03 | Diagnostic Imaging Report ---
PROCEDURE: CT cervical spine without contrast. TECHNIQUE: Multiple contiguous axial images were obtained through the cervical spine without the use of intravenous contrast. Sagittal and coronal reformations were then performed. Auto Exposure Controls were utilized during the CT exam to meet ALARA standards for radiation dose reduction. INDICATION: Fall, weakness. COMPARISON: 03/22/2019 FINDINGS: [place] left curvature of the visualized cervicothoracic spine. No significant anterolisthesis or retrolisthesis. Alignment of the atlantooccipital joint is well maintained. Besides endplate degenerative changes, vertebral body heights are well-maintained. No acute fracture or dislocation. No destructive osseous process. Moderate disc space height loss at C4/C5 with mild disc space height loss at C5/C6 and C6/C7. There is resulting moderate right neural foraminal stenosis at C4/C5. Background interstitial lung changes are present. No pneumothorax. IMPRESSION: No acute osseous abnormality with scattered osseous degenerative changes. Background fibroemphysematous changes within the lungs. Agree with preliminary interpretation. Dictated by: Dictated on workstation # [id number]
[2019-10-08] MEDS: inSUlin ASPART (NovoLOG) 1 UNIT/0.01 ML (CHARGE PER UNIT) SC SCH ×4 (06:04→20:11)
[2019-10-08] MEDS ORDERED: LEVOTHYROXINE 50 MCG (LEVOTHROID) TAB PO SCH (06:30)
[2019-10-08 06:38] LABS: CHOLESTEROL 209 MG/DL (< 200); HDL CHOLESTEROL 56 MG/DL (40-60); TRIGLYCERIDES 107 MG/DL (<150); VLDL CHOLESTEROL 21 MG/DL (5-40)
[2019-10-08] MEDS: RT-ALBUTEROL/IPRATROPIUM 3 ML (DUONEB) VIAL INH SCH ×4 (06:44→18:15)
--- NOTE | 2019-10-08 09:25 | History & Physical-Hospitalist ---
History of Present Illness HPI/Chief Complaint CC: Left sided weakness HPI: This is a 64yoWF clinic patient of [facility] who presented to the ER 1 days after left sided weakness that apparently got worse the following day requiring EMS call. Patient was placed on stroke protocol and had no evidence of any confirmation of CVA so she was admitted for HTN encephalopathy. Patient reports that she can't really move her left side at all and she is a poor historian. PT attempted to work with her today and she could not participate. MRI and Carotid USG reviewed after rounds and confirmed the CVA as below: MRI today: Impression: 1: There is interval development of an acute lacunar cerebral infarct involving the posterior limb of the right internal capsule/right thalamic region. 2: Interval development of small acute infarct involving the medial posterior left temporal lobe and left occipital lobe. 3: Interval development of a focal area of possible subacute infarct involving the high left parietal parasagittal region. Dr Diaz has been gracious enough to provide consultation services. Source: patient Exam Limitations: no limitations Date Seen 10/08/19 Time Seen by a Provider: 09:30 Attending Physician Wally Russo MD PCP Center/[facility] Referring Physician Date of Admission Oct 08, 2019 at 00:20 Home Medications & Allergies Home Medications Reviewed patient Home Medication Reconciliation performed by pharmacy medication reconciliations industrial maintenance technician and/or nursing. Patients Allergies have been reviewed. Allergies Allergies Coded Allergies meperidine (Verified Allergy, Unknown, 08/16/13) Past Iphmvta-Eyrqwe-Njbtjw Hx Past Med/Social Hx: Reviewed Nursing Past Med/Soc Hx, Reviewed and Corrections made Patient Social History Marrital Status: single Employed/Student: retired ("many jobs") Alcohol Use: Denies Use Recreational Drug Use: No Smoking Status: Current Everyday Smoker Type Used: Cigarettes (0.5 ppd) 2nd Hand Smoke Exposure: Yes Recent Foreign Travel: No Contact w/other who traveled: No Recent Hopitalizations: Yes (PNEUMONIA) Recent Infectious Disease Expo: No Immunizations Up To Date Tetanus Booster (TDap): More than 5yrs Pediatric: No Date of Pneumonia Vaccine: Jul 18, 2009 Date of Influenza Vaccine: Apr 17, 2019 Past Medical History Surgeries: Abdominal, Section, Ear Surgery, Hysterectomy, Oophorectomy, Tonsillectomy Cardiac: Hypertension Neurological: TIA Reproductive: Yes (UTERINE CANCER) Gastrointestinal: Diverticulosis Endocrine: Hypothyroidsim, Diabetes, Non-Insulin dep Cancer: Uterine Psychosocial: Anxiety, Depression History of Blood Disorders: No Family History Cancer 03 MOTHER (LIVER CANCER) Congestive heart failure 03 FATHER Family history: Asthma 03 FATHER 09 BROTHER Family history: Cardiovascular disease 03 FATHER Family history: Thyroid disorder 03 FATHER 09 BROTHER 09 BROTHER 09 BROTHER 09 BROTHER 09 SISTER 09 SISTER 09 SISTER 09 SISTER History of - respiratory disease 03 FATHER (COPD, ASTHMA, EMPHYSEMA) 09 BROTHER 09 BROTHER 09 BROTHER 09 BROTHER 09 SISTER 09 SISTER 09 SISTER 09 SISTER Asthma, Heart Disease, Cancer, COPD, Diabetes Review of Systems Constitutional: see HPI, weakness EENTM: no symptoms reported Respiratory: no symptoms reported Cardiovascular: no symptoms reported Gastrointestinal: no symptoms reported Genitourinary: no symptoms reported Musculoskeletal: no symptoms reported Skin: no symptoms reported Psychiatric/Neurological: Weakness Physical Exam Physical Exam Vital Signs Vital Signs - First Documented 10/07/19 10/07/19 10/08/19 10/08/19 21:05 23:20 00:03 04:02 Temp 36.7 Pulse 93 Resp 22 B/P (MAP) 129/88 (102) Pulse Ox 94 O2 Delivery Room Air O2 Flow Rate 2.00 FiO2 28 Capillary Refill : Less Than 3 Seconds Height, Weight, BMI Height: 5'2.00" Weight: 234lbs. 4.0oz. 106.734096vc; 42.81 BMI Method:Stated General Appearance: No Apparent Distress, Chronically ill, Obese Eyes: Right Eye Normal Inspection, Right Eye PERRL HEENT: PERRL/EOMI, Normal ENT Inspection, Pharynx Normal, Moist Mucous Membranes Neck: Full Range of Motion, Normal Inspection, Non Tender Respiratory: Chest Non Tender, Lungs Clear, Normal Breath Sounds, No Accessory Muscle Use, No Respiratory Distress Cardiovascular: Regular Rate, Rhythm, No Edema, No Gallop, No JVD, No Murmur, Normal Peripheral Pulses Gastrointestinal: Normal Bowel Sounds, No Organomegaly, No Pulsatile Mass, Non Tender, Soft Back: Normal Inspection, No CVA Tenderness, No Vertebral Tenderness Extremity: Normal Capillary Refill, Normal Inspection, Normal Range of Motion, Non Tender, No Calf Tenderness, No Pedal Edema Neurologic/Psychiatric: Alert, Normal Mood/Affect, manager emergency department II-XII Norm as Tested, Disoriented, Motor Weakness (left arm and leg) Skin: Normal Color, Warm/Dry Lymphatic: No Adenopathy Results Results/Procedures Labs Laboratory Tests 10/07/19 21:10 10/08/19 05:55 Patient resulted labs reviewed. Assessment/Plan Admission Diagnosis Assessment: Subacute CVA with left sided weakness with profound and catastrophic residual HTN OOC Smoker TIA in past DM Obesity Plan: PT OT IRF Cardiology consultation appreciated Home meds? Smoking cessation Admission Status: Inpatient Order (span 2 midnights) Reason for Inpatient Admission: Subacute CVA Diagnosis/Problems Diagnosis/Problems (1) CVA (cerebral vascular accident) (2) Left-sided weakness (3) Smoker (4) Hypertension (5) Hyperlipemia (6) Diabetes Clinical Quality Measures DVT/VTE Risk/Contraindication: Risk Factor Score Per Nursin RFS Level Per Nursing on Admit: 4+=Very High Stroke: Date of last known well: Oct 07, 2019 Symptoms onset unknown: Yes SUNNY ANDERSON DO Oct 08, 2019 09:25
[2019-10-08 09:32] LABS: BASOPHILS # (AUTO) 0.1 10^3/uL (0.0-0.1); BASOPHILS % (AUTO) 0 % (0-10); EOSINOPHILS # (AUTO) 0.2 10^3/uL (0.0-0.3); EOSINOPHILS % (AUTO) 1 % (0-10); HEMATOCRIT 43 % (35-52); HEMOGLOBIN 14.4 G/DL (11.5-16.0); LYMPHOCYTES # (AUTO) 2.4 X 10^3 (1.0-4.0); LYMPHOCYTES % (AUTO) 16 % (12-44); MEAN CORPUSCULAR HEMOGLOBIN 30 PG (25-34); MEAN CORPUSCULAR HGB CONC 33 G/DL (32-36); MEAN CORPUSCULAR VOLUME 89 FL (80-99); MEAN PLATELET VOLUME 11.1 FL (7.4-10.4); MONOCYTES # (AUTO) 1.2 X 10^3 (0.0-1.0); MONOCYTES % (AUTO) 8 % (0-12); NEUTROPHILS # (AUTO) 11.8 X 10^3 (1.8-7.8); NEUTROPHILS % (AUTO) 75 % (42-75); PLATELET COUNT 371 10^3/uL (130-400); RED CELL DISTRIBUTION WIDTH 14.9 % (10.0-14.5); WHITE BLOOD COUNT 15.7 10^3/uL (4.3-11.0)
[2019-10-08 09:44] LABS: ALANINE AMINOTRANSFERASE 19 U/L (0-55); ALBUMIN 4.1 GM/DL (3.2-4.5); ALKALINE PHOSPHATASE 79 U/L (40-136); BILIRUBIN,TOTAL 0.3 MG/DL (0.1-1.0); BUN/CREATININE RATIO 11; CALCIUM 8.9 MG/DL (8.5-10.1); CARBON DIOXIDE 23 MMOL/L (21-32); CHLORIDE 99 MMOL/L (98-107); CREATININE SERUM 0.73 MG/DL (0.60-1.30); GFR ESTIMATED > 60; GLUCOSE 170 MG/DL (70-105); POTASSIUM 4.4 MMOL/L (3.6-5.0); SODIUM 134 MMOL/L (135-145); TOTAL PROTEIN 6.6 GM/DL (6.4-8.2)
[2019-10-08] MEDS: CLOPIDOGREL 75 MG (PLAVIX) TABLET PO SCH (09:47)
[2019-10-08] MEDS: lisINopril 40 MG (PRINIVIL) TABLET PO SCH (09:47)
[2019-10-08 09:57] LABS: BASOPHILS % (MANUAL) 1 %; EOSINOPHILS % (MANUAL) 1 %; LYMPHOCYTES % (MANUAL) 25 %; MONOCYTES % (MANUAL) 3 %; NEUTROPHILS % (MANUAL) 70 %
[2019-10-08 09:58] LABS: RBC MORPH NORMAL
--- NOTE | 2019-10-08 11:13 | Physical Therapy Evaluation ---
PT Evaluation-General Medical Diagnosis Admission Date Oct 08, 2019 at 00:20 Medical Diagnosis: Fall; left side weakness Onset Date: Oct 08, 2019 Therapy Diagnosis Therapy Diagnosis: weankess; abn gait Height/Weight Height (Feet): 5 Height (Inches): 2.00 Weight (Pounds): 234 Weight (Ounces): 4.0 Precautions Precautions/Isolations: Fall Prevention, Standard Precautions, Pressure Ulcer Weight Bear Status Right Lower Extremity: Right Weight Bearing/Tolerated Left Lower Extremity: Left Weight Bearing/Tolerated Referral Physician: Rafaela Reason for Referral: Evaluation/Treatment Medical History Pertinent Medical History: COPD, DM, HTN Additional Medical History hyperlipidemia Current History Pt presented to ED with reports of fall at home and noted left sided weakness. Symptoms had resolved and patient was preparing to leave the ED; she slid out of her chair. Pt admitted to acute. Pt currently has left sided weakness. Reviewed History: Yes Social History Home: Single Level Current Living Status: Alone Prior Prior Level of Function SCALE: Activities may be completed with or without assistive devices. 7-Biuhzqidrk-bbcbfsw completes the activity by him/herself with no assistance from a helper. 5-Set-up or Clean-up Assistance-helper sets up or cleans up; patient completes activity. Brook assists only prior to or following the activity. 4-Supervision or Touching Assistance-helper provides verbal cues and/or touching/steadying and/or contact guard assistance as patient completes activity. Assistance may be provided throughout the activity or intermittently. 3-Partial/Moderate Assistance-helper does LESS THAN HALF the effort. Brook lifts, holds or supports trunk or limbs, but provides less than half the effort. 2-Substantial/Maximal Assistance-helper does MORE THAN HALF the effort. Brook lifts or holds trunk or limbs and provides more than half the effort. 1-Tledajaxq-ypyhbp does ALL the effort. Patient does none of the effort to complete the activity. Or, the assistance of 2 or more helpers is required for the patient to complete the activity. If activity was not attempted, code reason: 7-Patient Refused. 9-Not Applicable-not attempted and the patient did not perform the activity before the current illness, exacerbation or injury. 10-Not Attempted due to Environmental Limitations-(lack of equipment, weather restraints, etc.). 88-Not Attempted due to Medical Conditions or Safety Concerns. Pt reports she lives alone and is mod indep with mobiltiy; reports she uses a cane or FWW. Reports she does not drive but does go to the grocery store, she either uses a scooter or pushes a cart. PT Evaluation-Current Subjective Pt reports she is tired and cannot move her left side. Agrees to participate with PT. Objective Patient Orientation: Person, Confused, Place, Time, Situation ROM/Strength ROM Lower Extremities Right side WFL left side PROM WFL Strength Lower Extremities Right side LE strength is grossly 3/5; unable to elicit muscle contraction left LE. Integumentary/Posture Integumentary Refer to nursing notes for full assessment. Bowel Incontinence: Yes Bladder Incontinence: Yes Posture Rounded shoulders and forward head. Neuromuscular (Tone, Coordination, Reflexes) NT this visit. Sensory Vision: Functional Hearing: Functional Hand Dominance: Right Transfers Roll Left to Right (QC): 1 Sit to Lying (QC): 1 Lying to Sitting/Side of Bed(Q: 1 Sit to Stand (QC): 88 Chair/Llp-vb-Pdevd Xfer(QC): 88 Dependent assist for mobility in bed. Assist of 2 for rolling and scooting. Gait Does the Patient Walk?: No and Walking Goal IS indicated Comments/Gait Description Unable to attempt standing at this time. Balance Sitting Static: Poor Sitting Dynamic: Poor Special Test Comments Pt falls to the left in sitting and requires assist of 2 for balance. Treatment Sat EOB with assist of 2 and worked on WB through left UE and trunk control; focus on initiating core muscles and trunk control. Pt in bed post treatment with SCD's in place, left heel elevated and bed alarm activated. Nurse present as PT exited. Assessment/Needs Post fall with left sided weakness with evidence of CVA. Pt is dependent for m obility and requires assist of 2 for transfers and bed mobility; she has left sided weakness that impairs bed mobiltiy, transfers and standing. She will benefit from skilled PT to address her deficits and allow her to return home as before. Rehab Potential: Guarded PT Payroll Tax Specialist Goals Payroll Tax Specialist Goals PT Mcfp Goals Time Frame: Oct 12, 2019 Roll Left & Right (QC): 3 Sit to Lying (QC): 3 Lying-Sitting on Side/Bed(QC): 3 Chair/Mmn-bl-Mlxms Xfer(QC): 3 Walk 50ft with 2 Turns (QC): 3 PT Plan Problem List Problem List: Activity Tolerance, Functional Strength, Safety, Balance, Gait, Transfer, Bed Mobility Treatment/Plan Treatment Plan: Continue Plan of Care Treatment Plan: Bed Mobility, Education, Functional Activity Marjorie, Functional Strength, Gait, Safety, Therapeutic Exercise, Transfers Treatment Duration: Oct 12, 2019 Frequency: 11 times per week Estimated Hrs Per Day: .5 hour per day Patient and/or Family Agrees t: Yes Safety Risks/Education Patient Education: Safety Issues Teaching Recipient: Patient Teaching Methods: Discussion Response to Teaching: Reinforcement Needed Time/GCodes Time In: 930 Time Out: 955 Total Billed Treatment Time: 25 Total Billed Treatment visit EVM 15 FA 10 RIANNA MATOS PT Oct 08, 2019 11:13
[2019-10-08] MEDS: ENOXAPARIN 40 MG/0.4 ML (LOVENOX) SYR SC SCH ×2 (12:00→20:41)
--- NOTE | 2019-10-08 12:04 | NUR ---
CM/SS visited with the patient per social service consult. The patient was in bed with her breakfast. She had food still in front of her but states she does not like pancakes and doesn't have much of an appetite today anyway. The patient verbalized that she does not have insurance and does not have Medicare benefits. She reports that she is currently working on getting Medicare. She lives alone in an apartment building where she has stairs to use everyday. The patient states that her daughter wants her to move to [place] to be closer to her along with being near the [place]. The patient states that she would qualify for VA benefits for herself. The patient reports that she does not have any caregivers at home but her daughter that lives in [place] helps her with homemaker activities. The patients states she will help her go grocery shopping, and drive her to doctors appointments. She is thinking about the idea of moving to [facility] but does not know yet. Will continue to follow.
--- NOTE | 2019-10-08 12:40 | Diagnostic Imaging Report ---
Clinical indication: Patient has been falling and has weakness. Possible stroke. Exam: MRI of the brain performed without IV contrast. Sequences include axial DWI, ADC map, axial T2, axial FLAIR, axial T1, coronal gradient echo, and sagittal T1. Comparison: MRI of the brain performed without contrast dated 03/23/2019. CT angiogram of the head/neck dated 10/07/2019. Findings: There is interval development of a roughly 14 mm x 6 mm area of acute infarct involving the posterior limb of the right internal capsule/right thalamic region. There is associated subtle increased T2 signal in the region. The area of previous acute cerebral infarct involving the posterior right cerebral hemisphere has evolved and is now chronic. There is also development of a small area of diffusion restriction involving the medial posterior left temporal lobe and left occipital lobe region concerning for small acute infarcts. There is a subtle 5 mm area of increased DWI signal and normalized ADC map signal involving the high parasagittal left parietal lobe region which may be related to subtle subacute infarct. There are multiple focal, patchy, and confluent areas of high T2 signal while matter changes seen throughout both cerebral hemispheres, periventricular regions, and kiersten seen which may be related to chronic small vessel ischemic disease and leukocytosis. Brain parenchymal volume loss again seen. There is no hydrocephalus. Basal cisterns are unremarkable. The [place] vascular structures show no gross abnormality as visualized. There is prominence of the pituitary gland with superior convex border. Pituitary gland measures roughly 10 mm in the craniocaudal dimension. The extra-axial soft tissues, skull, and orbits are unremarkable. There is mild mucosal thickening involving the posterior ethmoid sinus. There is large amounts of fluid in right mastoid air cells and small amount in left mastoid air cells. Impression: 1: There is interval development of an acute lacunar cerebral infarct involving the posterior limb of the right internal capsule/right thalamic region. 2: Interval development of small acute infarct involving the medial posterior left temporal lobe and left occipital lobe. 3: Interval development of a focal area of possible subacute infarct involving the high left parietal parasagittal region. 4: Again noted prominent pituitary gland measuring 10 mm, in the craniocaudal dimension, and superior convex border. MRI of the pituitary gland with and without IV contrast is suggested to evaluate for underlying pituitary lesion. 5: There is fluid in both mastoid air cells, (right side more than the left). Dictated by: Dictated on workstation # [id number]
--- NOTE | 2019-10-08 12:49 | Consultation-Cardiology ---
HPI-Cardiology Cardiology Consultation: Date of Consultation 10/08/19 Time Seen by a Provider: 12:30 Date of Admission Attending Physician Enedelia Barrow MD Admitting Physician [place] Consulting Physician OLMAN CHRISTIAN MD, MA, FACP, FACC, [facility], CCDS Phyisician requesting consult: Dr Gutiérrez HPI: Chief Complaint: CC: Generalized weakness, somewhat more on the L HPI 64 yo woman admitted to Dr Gutiérrez with suspected CVA. Notes gen weakness, more pronounced for the last several days, more prominent on the L, associated somewhat poor balance. Denies syncope or palp. Notes chronic, exertional s hortness of breath. Has chronic, mild, intermittent leg swelling. Denies fever or chills. Review of Systems-Cardiology Review of Systems Constitutional: malaise, tiredness; No weight loss, No weight gain Eyes: other (chronic, intermittnet blurriness of vision) Ears/Nose/Throat: No nasal drainage, No recent hearing loss, No ulcerations Respiratory: As described under HPI Cardiovascular: As described under HPI Gastrointestinal: No constipation, No diarrhea, No nausea, No vomiting Genitourinary: No dysuria, No hematuria, No urine frequency changes Musculoskeletal: back pain (chronic) Skin: No rash, No ulcerations Psychiatric/Neurological: As described under HPI Hematologic: No bleeding abnormalities All Other Systems Reviewed Negative Unless Noted: Yes OOP-Valovh-Qxskzq Hx Patient Social History Alcohol Use: Denies Use Recreational Drug Use: No Smoking Status: Current Everyday Smoker Type Used: Cigarettes (0.5 ppd) 2nd Hand Smoke Exposure: Yes Recent Foreign Travel: No Recent Infectious Disease Expo: No Hospitalization with Isolation: Denies Immunizations Up To Date Tetanus Booster (TDap): More than 5yrs Date of Pneumonia Vaccine: Jul 18, 2009 Date of Influenza Vaccine: Apr 17, 2019 Past Medical History PMH As described under Assessment. Family Medical History Family History: Cancer 03 MOTHER (LIVER CANCER) Congestive heart failure 03 FATHER Family history: Asthma 03 FATHER 09 BROTHER Family history: Cardiovascular disease 03 FATHER Family history: Thyroid disorder 03 FATHER 09 BROTHER 09 BROTHER 09 BROTHER 09 BROTHER 09 SISTER 09 SISTER 09 SISTER 09 SISTER History of - respiratory disease 03 FATHER (COPD, ASTHMA, EMPHYSEMA) 09 BROTHER 09 BROTHER 09 BROTHER 09 BROTHER 09 SISTER 09 SISTER 09 SISTER 09 SISTER Allergies and Home Medications Allergies Coded Allergies: meperidine (Verified Allergy, Unknown, 08/16/13) Home Medications Albuterol Sulfate 6.7 Gm Hfa.aer.ad, 2 PUFF INH Q6H PRN for SHORTNESS OF BREATH, (Reported) Atorvastatin Calcium 40 Mg Tablet, 40 MG PO HS Prescribed by: ENEDELIA BARROW on 03/24/19 1043 Cholecalciferol (Vitamin D3) 1,000 Unit Capsule, 1,000 UNIT PO TID, (Reported) Citalopram Hydrobromide 40 Mg Tablet, 40 MG PO DAILY, (Reported) Clopidogrel Bisulfate 75 Mg Tablet, 75 MG PO DAILY Prescribed by: ENEDELIA BARROW on 03/24/19 1043 Hydrochlorothiazide 25 Mg Tablet, 25 MG PO DAILY, (Reported) Levothyroxine Sodium 175 Mcg Tablet, 175 MCG PO DAILY, (Reported) Lisinopril 40 Mg Tablet, 40 MG PO DAILY, (Reported) Metformin HCl 1,000 Mg Tablet, 1,000 MG PO BID WITH MEALS, (Reported) Multivitamin 1 Each Tablet, 1 TAB PO HS, (Reported) [place] 3 Polyunsat Fatty Acids 1,000 Mg Cap, 1,000 MG PO DAILY, (Reported) Pioglitazone HCl 30 Mg Tablet, 30 MG PO DAILY, (Reported) Patient Home Medication List Home Medication List Reviewed: Yes Physical Exam-Cardiology Physical Exam Vital Signs/I&O 10/08/19 10/08/19 10/08/19 10/08/19 01:00 01:06 04:00 04:02 Temp 36.3 36.4 36.3 Pulse 91 80 91 Resp 20 21 B/P (MAP) 170/88 144/69 (94) Pulse Ox 94 93 94 O2 Delivery Nasal Cannula Nasal Cannula Nasal Cannula O2 Flow Rate 2.00 2.00 2.00 FiO2 28 10/08/19 10/08/19 10/08/19 10/08/19 06:44 09:00 09:00 12:18 Temp 36.2 35.9 Pulse 78 71 Resp 20 20 B/P (MAP) 145/84 (104) 169/81 (110) Pulse Ox 92 96 96 93 O2 Delivery Nasal Cannula Nasal Cannula Nasal Cannula Nasal Cannula O2 Flow Rate 2.00 2.00 2.00 2.00 10/08/19 00:00 Intake Total 500 ml Balance 500 ml Capillary Refill : Less Than 3 Seconds Constitutional: AAO x 3, well-developed, well-nourished HEENT: EOMI, hearing is well preserved; No xanthelasmas are seen Neck: carotid pulses are 2 + bilaterally, with good upstrokes Respiratory: No accessory muscle use; other (good air entry but diminished at the bases; basal coarse crackles) Cardiovascular: regular rate-rhythm, S1 and S2, systolic murmur (soft DONALD at card base) Gastrointestinal: No tender; soft; No guarding, No rebound; audible bowel sounds Extremities: No clubbing, No cyanosis, No significant edema Neurologic/Psychiatric: oriented x 3, other (moves all limbs, notes bilat weakness, appear to have a slightly weaker precise winder on the L) Skin: No rash on exposed areas, No ulcerations on exposed areas Data Review Labs Laboratory Tests 10/07/19 21:10: White Blood Count 13.7H, Red Blood Count 5.30, Hemoglobin 15.9, Hematocrit 46, Mean Corpuscular Volume 87, Mean Corpuscular Hemoglobin 30, Mean Corpuscular Hemoglobin Concent 34, Red Cell Distribution Width 14.7H, Platelet Count 389, Mean Platelet Volume 10.6H, Neutrophils (%) (Auto) 65, Lymphocytes (%) (Auto) 25, Monocytes (%) (Auto) 8, Eosinophils (%) (Auto) 2, Basophils (%) (Auto) 1, Neutrophils # (Auto) 8.9H, Lymphocytes # (Auto) 3.4, Monocytes # (Auto) 1.1H, Eo sinophils # (Auto) 0.2, Basophils # (Auto) 0.1, Prothrombin Time 12.7, INR Comment 0.9, Activated Partial Thromboplast Time 34, D-Dimer 0.49, Sodium Level 133L, Potassium Level 4.4, Chloride Level 95L, Carbon Dioxide Level 24, Anion Gap 14, Blood Urea Nitrogen 12, Creatinine 0.96, Estimat Glomerular Filtration Rate 58, BUN/Creatinine Ratio 13, Glucose Level 224H, Calcium Level 9.8, Corrected Calcium , Total Bilirubin 0.2, Aspartate Amino Transf (AST/SGOT) 26, Alanine Aminotransferase (ALT/SGPT) 20, Alkaline Phosphatase 96, Troponin I < 0.028, Total Protein 7.5, Albumin 4.6H, Serum Alcohol < 10 10/07/19 21:16: Glucometer 212H 10/07/19 21:35: Urine Color YELLOW, Urine Clarity CLEAR, Urine pH 6.0, Urine Specific [place] >=1.030, Urine Protein 3+H, Urine Glucose (UA) NEGATIVE, Urine Ketones NEGATIVE, Urine Nitrite NEGATIVE, Urine Bilirubin NEGATIVE, Urine Urobilinogen 0.2, Urine Leukocyte Esterase NEGATIVE, Urine RBC (Auto) NEGATIVE, Urine RBC NONE, Urine WBC NONE, Urine Squamous Epithelial Cells NONE, Urine Crystals NONE, Urine Bacteria NEGATIVE, Urine Casts NONE, Urine Mucus SMALLH, Urine Culture Indicated NO, Urine Opiates Screen NEGATIVE, Urine Oxycodone Screen NEGATIVE, Urine Methadone Screen NEGATIVE, Urine Propoxyphene Screen NEGATIVE, Urine Barbiturates Screen NEGATIVE, Ur Tricyclic Antidepressants Screen NEGATIVE, Urine Phencyclidine Screen NEGATIVE, Urine Amphetamines Screen NEGATIVE, Urine Methamphetamines Screen NEGATIVE, Urine Benzodiazepines Screen NEGATIVE, Urine Cocaine Screen NEGATIVE, Urine Cannabinoids Screen NEGATIVE 10/07/19 21:50: Blood Gas Puncture Site RIGHT RADIAL, Blood Gas Patient Temperature 36.7, Arterial Blood pH 7.40, Arterial Blood Partial Pressure CO2 41, Arterial Blood Partial Pressure O2 63L, Arterial Blood HCO3 25, Arterial Blood Total CO2 26.5, Arterial Blood Oxygen Saturation 92L, Arterial Blood Base Excess 0.9, Hiren Test YES-POS, Blood Gas Ventilator Setting NO, Blood Gas Inspired Oxygen ROOM AIR 10/08/19 05:55: White Blood Count 15.7H, Red Blood Count 4.87, Hemoglobin 14.4, Hematocrit 43, Mean Corpuscular Volume 89, Mean Corpuscular Hemoglobin 30, Mean Corpuscular Hemoglobin Concent 33, Red Cell Distribution Width 14.9H, Platelet Count 371, Mean Platelet Volume 11.1H, Neutrophils (%) (Auto) 75, Lymphocytes (%) (Auto) 16, Monocytes (%) (Auto) 8, Eosinophils (%) (Auto) 1, Basophils (%) (Auto) 0, Neutrophils # (Auto) 11.8H, Lymphocytes # (Auto) 2.4, Monocytes # (Auto) 1.2H, Eosinophils # (Auto) 0.2, Basophils # (Auto) 0.1, Neutrophils % (Manual) 70, Lymphocytes % (Manual) 25, Monocytes % (Manual) 3, Eosinophils % (Manual) 1, Basophils % (Manual) 1, Blood Morphology Comment NORMAL, Sodium Level 134L, Potassium Level 4.4, Chloride Level 99, Carbon Dioxide Level 23, Anion Gap 12, Blood Urea Nitrogen 8, Creatinine 0.73, Estimat Glomerular Filtration Rate > 60, BUN/Creatinine Ratio 11, Glucose Level 170H, Glucometer 173H, Calcium Level 8.9, Corrected Calcium 8.8, Total Bilirubin 0.3, Aspartate Amino Transf (AST/SGOT) 22, Alanine Aminotransferase (ALT/SGPT) 19, Alkaline Phosphatase 79, Total Protein 6.6, Albumin 4.1, Triglycerides Level 107, Cholesterol Level 209H, LDL Cholesterol Direct 152H, VLDL Cholesterol 21, HDL Cholesterol 56 10/08/19 12:09: Glucometer 163H Laboratory Tests 10/07/19 21:10 10/08/19 05:55 A/P-Cardiology Assessment/Admission Diagnosis ?CVA, being managed by Dr Gutiérrez Gen weakness and malaise 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 Doesn't appear suitable for statin because has generalized muscle weakness at baseline DM II, being managed by the Med [facility] Discussion and Recomendations * Continue clopidogrel because of moderate vertebral artery stenosis * If CVA/TIA is established then would need to look of PAF (may need ILR implantation). Meanwhile, monitor on tele * Echo Clinical Quality Measures DVT/VTE Risk/Contraindication: Risk Factor Score Per Nursin RFS Level Per Nursing on Admit: 4+=Very High Stroke: Date of last known well: Oct 07, 2019 Symptoms onset unknown: Yes OLMAN CHRISTIAN MD FACP [facility] Oct 08, 2019 12:49
--- NOTE | 2019-10-08 13:26 | Occupational Therapy Eval ---
OT Evaluation-General/PLF Medical Diagnosis Admission Date Oct 08, 2019 at 00:20 Medical Diagnosis: Fall; left side weakness Onset Date: Oct 08, 2019 Therapy Diagnosis Therapy Diagnosis: Decreased ADL status Height/Weight Height (Feet): 5 Height (Inches): 2.00 Weight (Pounds): 234 Weight (Ounces): 4.0 Precautions Precautions/Isolations: Fall Prevention, Standard Precautions, Pressure Ulcer Weight Bear Status Weight Bearing Restriction: Weight Bearing/Tolerated Referral Physician: Rafaela Referral Reason: Activity Tolerance, Self Care, Evaluation/Treatment, Strengthening/ROM Medical History Pertinent Medical History: COPD, DM, HTN Social History Home: Single Level Current Living Status: Alone Entry Into Home: Stairs With Railing Steps Into Home: 16 ADL-Prior Level of Function SCALE: Activities may be completed with or without assistive devices. 4-Mywmbtikle-bjdvtgc completes the activity by him/herself with no assistance from a helper. 5-Set-up or Clean-up Assistance-helper sets up or cleans up; patient completes activity. [place] assists only prior to or following the activity. 4-Supervision or Touching Assistance-helper provides verbal cues and/or touching/steadying and/or contact guard assistance as patient completes activity. Assistance may be provided throughout the activity or intermittently. 3-Partial/Moderate Assistance-helper does LESS THAN HALF the effort. [place] lifts, holds or supports trunk or limbs, but provides less than half the effort. 2-Substantial/Maximal Assistance-helper does MORE THAN HALF the effort. [place] lifts or holds trunk or limbs and provides more than half the effort. 3-Duldufcsg-jqrujq does ALL the effort. Patient does none of the effort to complete the activity. Or, the assistance of 2 or more helpers is required for the patient to complete the activity. If activity was not attempted, code reason: 7-Patient Refused. 9-Not Applicable-not attempted and the patient did not perform the activity before the current illness, exacerbation or injury. 10-Not Attempted due to Environmental Limitations-(lack of equipment, weather restraints, etc.). 88-Not Attempted due to Medical Conditions or Safety Concerns. ADL PLOF Comments Pt states IND with use of AE. Pt did not receive assist prior though had grand son/ daughter present at times, has daughter who assists with driving/ grocery tasks. Self Care: Independent Functional Cognition: Independent DME/Equipment: Tub/Shower Drive Self: No OT Current Status Subjective Pt seen in bed, laying on L side. Pt states she is unable to get up by self. Pt educated on role of OT, pt agrees to OT eval/ treat stating she desires to take care of self. pt denies current pain. Mental Status/Objective Patient Orientation: Person, Place, Situation Attachments: Oxygen Current Glasses/Contacts: Yes Hearing Aids: No Dentures/Partials: No Hand Dominance: Right Upper Extremity ROM R WFL L decreased AROM, full PROM Upper Extremity Coordination WFL R impaired/ slowed L Upper Extremity Sensation WFL BUE per pt Upper Extremity Strength decreased LUE (shoulder flexion impaired to ~20*, elbow flexion slowed, manipulation slowed) RWFL ADL-Treatment Eating (QC): 5 (s/u as pt able to eat with Rrequires max cues and assist with positioning.) Oral Hygiene (QC): 5 (per clinical judgement. ) On/Off Footwear (QC): 1 (Pt's EOB balance impaired- pt would require TD for safe dof/donning) Other Treatments Pt seen in bed. Bed mob with max A. EOB balance with min A for righting. pt requests sitting in chair. Pt TD with sit to stand and transfer to recliner chair. Requires max cues for safety. Use of 2 person to assist toward back of recliner. Pt positioned with pillow to L to stabilize in midline and pillows propping L UE. Pt educated on role of OT, hx provided. Pt completes eating/ drinking with s/u. Pt states she does not believe she will have difficulty with oral care but will with all other ADLs. Pt denies additional needs, left in chair with feet on floor (per pt- pt educated on stability), call light on R side, chair alarm on. Pt states she feels secure in recliner. Nursing present to see pt's position. Education OT Patient Education: Correct positioning, Modified ADL techniques, Safety is sues, Transfer techniques Teaching Recipient: Patient Teaching Methods: Demonstration, Discussion Response to Teaching: Verbalize Understanding, Return Demonstration, Reinforcement Needed OT Short Term Goals Short Term Goals Time Frame: Oct 15, 2019 Eatin Oral hygiene: 5 Shower/bathe self: 2 Upper body dressin Lower body dressin Putting on/taking off footwear: 2 OT Mcc Goals Mcc Goals Time Frame: Oct 22, 2019 Eating (QC): 6 Oral Hygiene (QC): 6 Toileting Hygiene (QC): 2 Shower/Bathe Self (QC): 3 Upper Body Dressing (QC): 4 Lower Body Dressing (QC): 3 On/Off Footwear (QC): 4 Additional Goals: 1-Demonstrate ADL Tasks, 2-Verbalize Understanding, 3-ImproveStrength/Marjorie 1=Demonstrate adherence to instructed precautions during ADL tasks. 2=Patient will verbalize/demonstrate understanding of assistive devices/modifications for ADL. 3=Patient will improve strength/tolerance for activity to enable patient to perform ADL's. OT Education/Plan Problem List/Assessment Assessment: Decreased Activ Tolerance, Decreased Safety Aware, Decreased UE Strength, Dependent Transfers, Impaired Bed Mobility, Impaired Coordination, Impaired Funct Balance, Impaired I ADL's, Impaired Self-Care Skills, Restricted Funct UE ROM Discharge Recommendations Plan/Recommendations: Continue POC Therapy Discharge Recommendati: 24 Hour Supervision, Post Acute OT Treatment Plan/Plan of Care Treatment,Training & Education: Yes Patient would benefit from OT for education, treatment and training to promote independence in ADL's, mobility, safety and/or upper extremity function for ADL's. Plan of Care: ADL Retraining, Caregiver Training, Functional Mobility, UE Funct Exercise/Act, UE Neuromus Re-Ed/Coord Treatment Duration: Oct 22, 2019 Frequency: 5 times per week Estimated Hrs Per Day: .25 hour per day Agreement: Yes Rehab Potential: Fair Time/GCodes Start Time: 12:46 Stop Time: 13:20 Total Time Billed (hr/min): 34 Billed Treatment Time 1, YESY, TRUDI (34) BARRY BYERS OTR Oct 08, 2019 13:26
--- NOTE | 2019-10-08 14:00 | Physical Therapy Daily Note ---
PT Daily Note-Current Subjective Patient in recliner pre tx, agrees to PT, has no complaints of pain. Appearance Patient in recliner post tx with nurse call, phone, tray, all needs met, chair alarm on. Mental Status Patient Orientation: Person, Confused Attachments: Oxygen Transfers SCALE: Activities may be completed with or without assistive devices. 1-Galegfztbi-wnnuasg completes the activity by him/herself with no assistance from a helper. 5-Set-up or Clean-up Assistance-helper sets up or cleans up; patient completes activity. [place] assists only prior to or following the activity. 4-Supervision or Touching Assistance-helper provides verbal cues and/or touching/steadying and/or contact guard assistance as patient completes activity . Assistance may be provided throughout the activity or intermittently. 3-Partial/Moderate Assistance-helper does LESS THAN HALF the effort. [place] lifts, holds or supports trunk or limbs, but provides less than half the effort. 2-Substantial/Maximal Assistance-helper does MORE THAN HALF the effort. [place] lifts or holds trunk or limbs and provides more than half the effort. 9-Xyxddncwa-nmmjem does ALL the effort. Patient does none of the effort to complete the activity. Or, the assistance of 2 or more helpers is required for the patient to complete the activity. If activity was not attempted, code reason: 7-Patient Refused. 9-Not Applicable-not attempted and the patient did not perform the activity before the current illness, exacerbation or injury. 10-Not Attempted due to Environmental Limitations-(lack of equipment, weather restraints, etc.). 88-Not Attempted due to Medical Conditions or Safety Concerns. Sit to Stand (QC): 3 Patient stood twice with mod assist, stood for about 30 sec each time before needing to sit. Patient very exhausted after every attempt. Weight Bearing Right Lower Extremity: Right Weight Bearing/Tolerated Left Lower Extremity: Left Weight Bearing/Tolerated Exercises Seated Therapy Exercises: Long arc quads Seated Reps: 15 (AAROM) Assessment Current Status: Fair Progress slightly improved mobility, patient very exhausted from minimal activity PT Plan Problem List Problem List: Activity Tolerance, Functional Strength, Safety, Balance, Gait, Transfer, Bed Mobility, ROM Treatment/Plan Treatment Plan: Continue Plan of Care Treatment Plan: Bed Mobility, Education, Functional Activity Marjorie, Functional Strength, Gait, Safety, Therapeutic Exercise, Transfers Treatment Duration: Oct 15, 2019 Frequency: 6 times per week Safety Risks/Education Patient Education: Correct Positioning, Safety Issues Teaching Recipient: Patient Teaching Methods: Demonstration, Discussion Response to Teaching: Reinforcement Needed Time/GCodes Time In: 1340 Time Out: 1355 Total Billed Treatment Time: 15 Total Billed Treatment 1 visit FA 15' CODEY LINDSAY PT Oct 08, 2019 14:00
--- NOTE | 2019-10-08 14:20 | NUR ---
Pastoral care visit.
[2019-10-08] MEDS ORDERED: ASPI-983 PO (15:09)
[2019-10-08] MEDS ORDERED: CHOL10007 PO (15:09)
[2019-10-08] MEDS ORDERED: IBUP-2473 PO (15:11)
--- NOTE | 2019-10-08 15:12 | NUR ---
SPOKE WITH THE PT AND HAD [facility] FAX ME A MED LIST (IT IS ATTACHED TO THE PT'S CHART) TO COMPLETE THE MED REC. THE FOLLOWING ARE FILL DATES FROM [facility]: 07-25-2019 LISINOPRIL 40MG #90/90DS 07-25-2019 METFORMIN 1000MG #90/45DS (I DOCUMENTED THE PAST DUE FILL ON THE MED REC) 07-25-2019 HCTZ 25MG #90/90DS 07-25-2019 CITALOPRAM 40MG #90/90DS 08-03-2019 PIOGLITAZONE 30MG #30/30DS ( I DOCUMENTED THE PAST DUE FILL ON THE MED REC) 09-21-2019 LEVOTHYROXINE 175MCG #30/30DS PT MENTIONED SHE USED ALBUTEROL, WHEN I ASKED WHICH KIND (MDI OR NEBULIZER) SHE SAID BOTH. WHEN I SPOKE WITH [facility] THEY HAVE AN ALBUTEROL HFA DISPENSED ON 07-20-2019 BUT HAVE NEVER FILLED A NEBULIZER SOLUTION- FOR THIS REASON I DID NOT INCLUDE IT ON THE MED REC OTC MEDS: IBUPROFEN ASPIRIN 81MG FISH OIL MTV VIT D
--- NOTE | 2019-10-08 15:20 | Diagnostic Imaging Report ---
PROCEDURE: US carotid duplex bilateral. TECHNIQUE: Multiple Real-time grayscale images were obtained over the carotid arteries in various projections bilaterally. Additional spectral analysis and color Doppler duplex images were also obtained. DATE: October 08, 2019. INDICATION: 64-year-old female, left-sided weakness. Stroke. COMPARISON: None. FINDINGS: Peak systolic velocity in the right common carotid artery measures 84 cm/s. Peak systolic velocity in the right proximal internal carotid artery measures 26 cm/s and 55 cm/s in the mid right internal carotid artery. Peak systolic velocity in the right external carotid artery measures 84 cm/s. There is patent antegrade flow in the right vertebral artery. Peak systolic velocity in the left common carotid artery measures 83 cm/s. Peak systolic velocity in the left proximal internal carotid artery measures 40 cm/s, 58 cm/s in the mid left internal carotid artery, and 60 cm/s distally. Peak systolic velocity in the left external carotid artery measures 73 cm/s. There is patent antegrade flow in the left vertebral artery. IMPRESSION: 1. Negative for hemodynamically significant right or left internal carotid artery stenosis. 2. Patent antegrade flow in the bilateral vertebral arteries. Dictated by: Dictated on workstation # [id number]
[2019-10-08] MEDS ORDERED: RT-ALBUTEROL SULF 2.5 MG/3 ML PRE-MIX VIAL INH PRN (17:00)
[2019-10-08] MEDS: IBUPROFEN TABLET 200 MG TAB PO PRN (17:10)
[2019-10-08] MEDS: VITAMIN D3 25 MCG (1,000 UNITS) TABLET PO SCH (20:41)
[2019-10-08] MEDS ORDERED: MULTIVIT W/MINERALS TAB (THERAGRAN M) PO SCH (21:00)
[2019-10-09] MEDS: IBUPROFEN TABLET 200 MG TAB PO PRN (00:15)
[2019-10-09 04:25] VITALS: BP 139/83
[2019-10-09] MEDS: inSUlin ASPART (NovoLOG) 1 UNIT/0.01 ML (CHARGE PER UNIT) SC SCH ×2 (05:34→11:41)
[2019-10-09] MEDS ORDERED: LEVOTHYROXINE 75 MCG (LEVOTHROID) TABLET PO SCH (06:30)
[2019-10-09] MEDS ORDERED: LEVOTHYROXINE 100 MCG (LEVOTHROID) TAB PO SCH (06:30)
[2019-10-09 06:42] LABS: BASOPHILS # (AUTO) 0.1 10^3/uL (0.0-0.1); BASOPHILS % (AUTO) 0 % (0-10); EOSINOPHILS # (AUTO) 0.3 10^3/uL (0.0-0.3); EOSINOPHILS % (AUTO) 2 % (0-10); HEMATOCRIT 41 % (35-52); HEMOGLOBIN 13.6 G/DL (11.5-16.0); LYMPHOCYTES # (AUTO) 2.2 X 10^3 (1.0-4.0); LYMPHOCYTES % (AUTO) 19 % (12-44); MEAN CORPUSCULAR HEMOGLOBIN 30 PG (25-34); MEAN CORPUSCULAR HGB CONC 33 G/DL (32-36); MEAN CORPUSCULAR VOLUME 89 FL (80-99); MEAN PLATELET VOLUME 10.8 FL (7.4-10.4); MONOCYTES % (AUTO) 8 % (0-12); NEUTROPHILS # (AUTO) 8.2 X 10^3 (1.8-7.8); NEUTROPHILS % (AUTO) 70 % (42-75); PLATELET COUNT 329 10^3/uL (130-400); RED CELL DISTRIBUTION WIDTH 14.5 % (10.0-14.5); WHITE BLOOD COUNT 11.7 10^3/uL (4.3-11.0)
[2019-10-09 06:59] LABS: ALANINE AMINOTRANSFERASE 19 U/L (0-55); ALBUMIN 3.9 GM/DL (3.2-4.5); ALKALINE PHOSPHATASE 81 U/L (40-136); BILIRUBIN,TOTAL 0.4 MG/DL (0.1-1.0); BUN/CREATININE RATIO 16; CARBON DIOXIDE 25 MMOL/L (21-32); CHLORIDE 94 MMOL/L (98-107); CREATININE SERUM 0.69 MG/DL (0.60-1.30); GFR ESTIMATED > 60; GLUCOSE 173 MG/DL (70-105); POTASSIUM 4.1 MMOL/L (3.6-5.0); SODIUM 129 MMOL/L (135-145); TOTAL PROTEIN 6.4 GM/DL (6.4-8.2)
[2019-10-09] MEDS: RT-ALBUTEROL/IPRATROPIUM 3 ML (DUONEB) VIAL INH SCH ×2 (07:25→11:06)
[2019-10-09] MEDS: VITAMIN D3 25 MCG (1,000 UNITS) TABLET PO SCH (08:22)
[2019-10-09] MEDS: lisINopril 40 MG (PRINIVIL) TABLET PO SCH (08:22)
[2019-10-09] MEDS: CLOPIDOGREL 75 MG (PLAVIX) TABLET PO SCH (08:22)
[2019-10-09] MEDS ORDERED: PIOGLITAZONE 30MG (ACTOS) TAB PO SCH (09:00)
[2019-10-09] MEDS ORDERED: HYDROCHLOROTHIAZIDE 25 MG (HCTZ) TAB PO SCH (09:00)
[2019-10-09] MEDS ORDERED: lisINopril 40 MG (PRINIVIL) TABLET PO SCH (09:00)
--- NOTE | 2019-10-09 10:01 | Physical Therapy Daily Note ---
PT Daily Note-Current Subjective Pt. in bed, says "my legs and back hurt." Pt. agreeable to sitting up in chair. No objective pain rating given when asked. Mental Status Patient Orientation: Person, Place Attachments: SCD's, Oxygen nurse in room states ok to leave patient off oxygen Transfers SCALE: Activities may be completed with or without assistive devices. 6-Mypvyurmfk-wsnprpr completes the activity by him/herself with no assistance from a helper. 5-Set-up or Clean-up Assistance-helper sets up or cleans up; patient completes activity. [place] assists only prior to or following the activity. 4-Supervision or Touching Assistance-helper provides verbal cues and/or touching/steadying and/or contact guard assistance as patient completes activity. Assistance may be provided throughout the activity or intermittently. 3-Partial/Moderate Assistance-helper does LESS THAN HALF the effort. [place] lifts, holds or supports trunk or limbs, but provides less than half the effort. 2-Substantial/Maximal Assistance-helper does MORE THAN HALF the effort. [place] lifts or holds trunk or limbs and provides more than half the effort. 5-Rqvwfeqay-dlljjx does ALL the effort. Patient does none of the effort to complete the activity. Or, the assistance of 2 or more helpers is required for the patient to complete the activity. If activity was not attempted, code reason: 7-Patient Refused. 9-Not Applicable-not attempted and the patient did not perform the activity before the current illness, exacerbation or injury. 10-Not Attempted due to Environmental Limitations-(lack of equipment, weather restraints, etc.). 88-Not Attempted due to Medical Conditions or Safety Concerns. Roll Left & Right (QC): 4 Sit to Stand (QC): 4 Chair/Dgz-yk-Xfaqf Xfer(QC): 3 Weight Bearing Right Lower Extremity: Right Weight Bearing/Tolerated Left Lower Extremity: Left Weight Bearing/Tolerated Gait Training Does the Patient Walk?: No and Walking Goal IS indicated Exercises Seated Therapy Exercises: Biceps, Ankle pumps, Shoulder Flex, Long arc quads, Hip flexion, Hamstring Curls Seated Reps: 15 Treatments transfers, LE exercise Assessment Current Status: Good Progress Pt. needed only CGA to sit at edge of bed and min A with standing at bedside. Pt. did have progressive lean to left after 30 seconds-1 min of standing and gradual increase lean to left during bed to chair transfer. Pt. able to scoot herself back in chair without difficulty. She needed cues to slow down reps of leg exercises and to improve coordination. Pt. frequently shifting trunk while sitting in chair to "help my back." Pt. up in chair post session with call light and all needs met. PT Assisted Goals Senior Technical Architect Goals PT Senior Technical Architect Goals Time Frame: Oct 12, 2019 Roll Left & Right (QC): 3 Sit to Lying (QC): 3 Lying-Sitting on Side/Bed(QC): 3 Chair/Zaa-gv-Xbekm Xfer(QC): 3 Walk 50ft with 2 Turns (QC): 3 PT Plan Treatment/Plan Treatment Plan: Continue Plan of Care Treatment Plan: Bed Mobility, Education, Functional Activity Marjorie, Functional Strength, Gait, Safety, Therapeutic Exercise, Transfers Treatment Duration: Oct 12, 2019 Frequency: 11 times per week Estimated Hrs Per Day: .5 hour per day Patient and/or Family Agrees t: Yes Time/GCodes Time In: 840 Time Out: 903 Total Billed Treatment Time: 23 Total Billed Treatment 1, FA 23' BILLIE LEE PT Oct 09, 2019 10:01
--- NOTE | 2019-10-09 11:04 | Occupational Ther Daily Note ---
OT Current Status-Daily Note Subjective Pt sitting in chair, agrees to therapy. Pt reports "stiffness," states she can't get comfortable ADL-Treatment Pt completed grooming tasks while seated in chair. Pt washed face with set up. Pt able to comb hair using right UE, but unable to thoroughly complete task. Pt required assist to reach left side of head. Increased time for task completion. Therapy Code Descriptions/Definitions Functional [place] Measure: 0=Not Assessed/NA 4=Minimal Assistance 1=Total Assistance 5=Supervision or Setup 2=Maximal Assistance 6=Modified [place] 3=Moderate Assistance 7=Complete IndependenceSCALE: Activities may be completed with or without assistive devices. 8-Dvjfpxcaiy-txfbjve completes the activity by him/herself with no assistance from a helper. 5-Set-up or Clean-up Assistance-helper sets up or cleans up; patient completes activity. [place] assists only prior to or following the activity. 4-Supervision or Touching Assistance-helper provides verbal cues and/or touching/steadying and/or contact guard assistance as patient completes activity. Assistance may be provided throughout the activity or intermittently. 3-Partial/Moderate Assistance-helper does LESS THAN HALF the effort. [place] lifts, holds or supports trunk or limbs, but provides less than half the effort. 2-Substantial/Maximal Assistance-helper does MORE THAN HALF the effort. [place] lifts or holds trunk or limbs and provides more than half the effort. 5-Rfuvhpsnk-txvybq does ALL the effort. Patient does none of the effort to complete the activity. Or, the assistance of 2 or more helpers is required for the patient to complete the activity. If activity was not attempted, code reason: 7-Patient Refused. 9-Not Applicable-not attempted and the patient did not perform the activity before the current illness, exacerbation or injury. 10-Not Attempted due to Environmental Limitations-(lack of equipment, weather restraints, etc.). 88-Not Attempted due to Medical Conditions or Safety Concerns. Other Treatment Pt completed left UE ROM exercises to increase active movement and strength. Pt is able to actively abduct shoulder to 90 degrees, but fatigues quickly. Pt performed A/AROM x10 reps at all joints. Rest breaks between exercises. Pt completed hand freight sorter exercises x10 reps with mild resistance therapy foam. Pt sitting in chair with needs met after session. OT Short Term Goals Short Term Goals Time Frame: Oct 15, 2019 Eatin Oral hygiene: 5 Shower/bathe self: 2 Upper body dressin Lower body dressin Putting on/taking off footwear: 2 OT Hand Coremaker Goals Halfway Goals Time Frame: Oct 22, 2019 Eating (QC): 6 Oral Hygiene (QC): 6 Toileting Hygiene (QC): 2 Shower/Bathe Self (QC): 3 Upper Body Dressing (QC): 4 Lower Body Dressing (QC): 3 On/Off Footwear (QC): 4 Additional Goals: 1-Demonstrate ADL Tasks, 2-Verbalize Understanding, 3- ImproveStrength/Marjorie 1=Demonstrate adherence to instructed precautions during ADL tasks. 2=Patient will verbalize/demonstrate understanding of assistive devices/modifications for ADL. 3=Patient will improve strength/tolerance for activity to enable patient to perform ADL's. OT Education/Plan Discharge Recommendations Plan/Recommendations: Continue POC Treatment Plan/Plan of Care Patient would benefit from OT for education, treatment and training to promote independence in ADL's, mobility, safety and/or upper extremity function for ADL's. Plan of Care: ADL Retraining, Caregiver Training, Functional Mobility, UE Funct Exercise/Act, UE Neuromus Re-Ed/Coord Treatment Duration: Oct 22, 2019 Frequency: 5 times per week Estimated Hrs Per Day: .25 hour per day Agreement: Yes Rehab Potential: Guarded Time/GCodes Start Time: 10:03 Stop Time: 10:31 Total Time Billed (hr/min): 28 Billed Treatment Time 1 visit, ADL(10minutes), EX(18minutes) SULEMAN CRUZ OT Oct 09, 2019 11:04
--- NOTE | 2019-10-09 11:36 | Discharge Summary ---
Discharge Summary Hospital Course Was the Problem List Reviewed?: Yes Problems/Dx: (1) CVA (cerebral vascular accident) (2) Left-sided weakness (3) Smoker (4) Hypertension (5) Hyperlipemia (6) Diabetes Hospital Course Date of Admission: Oct 08, 2019 at 00:20 Admission Diagnosis : Family Physician/Provider: Mobile/Pending Sale To [facility] Date of Discharge: 10/09/19 Discharge Diagnosis: CVA w/left sided weakness, vertebral artery stenosis non- critical, smoker, DM, HTN Hospital Course: Short course after admitted no CVA noted on CT or CTA but MRI obtained revealed multiple infarcts so carotid USG obtained and Cardiology consulted along with the addition of Lovenox for DVT PPx. Tely placed to eval PAF. Patient was sent to IRF for intensive therapies. Labs and Pending Lab Test: Laboratory Tests 10/08/19 12:09: Glucometer 163H 10/08/19 16:42: Glucometer 163H 10/08/19 20:07: Glucometer 168H 10/09/19 05:34: Glucometer 159H 10/09/19 06:05: White Blood Count 11.7H, Red Blood Count 4.59, Hemoglobin 13.6, Hematocrit 41, Mean Corpuscular Volume 89, Mean Corpuscular Hemoglobin 30, Mean Corpuscular Hemoglobin Concent 33, Red Cell Distribution Width 14.5, Platelet Count 329, Mean Platelet Volume 10.8H, Neutrophils (%) (Auto) 70, Lymphocytes (%) (Auto) 19, Monocytes (%) (Auto) 8, Eosinophils (%) (Auto) 2, Basophils (%) (Auto) 0, Neutrophils # (Auto) 8.2H, Lymphocytes # (Auto) 2.2, Monocytes # (Auto) 1.0, Eosinophils # (Auto) 0.3, Basophils # (Auto) 0.1, Sodium Level 129L, Potassium Level 4.1, Chloride Level 94L, Carbon Dioxide Level 25, Anion Gap 10, Blood Urea Nitrogen 11, Creatinine 0.69, Estimat Glomerular Filtration Rate > 60, BUN/Creatinine Ratio 16, Glucose Level 173H, Calcium Level 9.0, Corrected Calcium 9.1, Total Bilirubin 0.4, Aspartate Amino Transf (AST/SGOT) 19, Alanine Aminotransferase (ALT/SGPT) 19, Alkaline Phosphatase 81, Total Protein 6.4, [place] min 3.9 10/09/19 11:10: Glucometer 186H Home Meds Active Reported Ibuprofen 200 Mg Tablet 400 Mg PO Q6H PRN Aspirin EC (Aspirin) 81 Mg Tablet.dr 81 Mg PO HS Vitamin D3 (Cholecalciferol (Vitamin D3)) 25 Mcg Capsule 25 Mcg PO TID Fish Oil 1,000 mg Capsule ([place] 3 Polyunsat Fatty Acids) 1,000 Mg Cap 1,000 Mg PO DAILY Multivitamins (Multivitamin) 1 Each Tablet 1 Tab PO HS Pioglitazone HCl 30 Mg Tablet 30 Mg PO DAILY LAST FILLED 08-03-2019 #30/30 DAY SUPPLY Hydrochlorothiazide 25 Mg Tablet 25 Mg PO DAILY Proventil Hfa (Albuterol Sulfate) 6.7 Gm Hfa.aer.ad 2 Puff INH Q6H PRN Metformin HCl 1,000 Mg Tablet 1,000 Mg PO BID WITH MEALS FILLED 07-25-2019 #90/45 DAY SUPPLY Celexa (Citalopram Hydrobromide) 40 Mg Tablet 40 Mg PO DAILY Levothyroxine Sodium 175 Mcg Tablet 175 Mcg PO DAILY Lisinopril 40 Mg Tablet 40 Mg PO DAILY Assessment/Pt Instructions IRF Discharge Planning: <30 minutes discharge planning Discharge Instructions Discharge Diet: ADA Diet Activity as Tolerated: Yes Discharge Physical Examination Vital Signs Vital Signs Date Time Temp Pulse Resp B/P (MAP) Pulse Ox O2 Delivery O2 Flow Rate FiO2 10/09/19 11:07 90 Room Air 10/09/19 08:00 2.00 10/09/19 06:44 72 10/09/19 04:25 36.0 20 139/83 (101) 10/08/19 14:53 28 General Appearance: No Apparent Distress, WD/WN, Chronically ill, Obese Respiratory: Lungs Clear Cardiovascular: Regular Rate, Rhythm Neurologic/Psychiatric: Alert, Oriented x3, Normal Mood/Affect, Motor Weakness (left sided) Allergies: Coded Allergies: Mmiorvd-Yvc-Xgt Reductase Inhibitor (Verified Allergy, Unknown, 10/09/19) muscle pain meperidine (Verified Allergy, Unknown, 08/16/13) Discharge Summary Date of Admission Oct 08, 2019 at 00:20 Date of Discharge Discharge Date: Oct 09, 2019 Admission Diagnosis Assessment: Subacute CVA with left sided weakness with profound and catastrophic residual HTN OOC Smoker TIA in past DM Obesity Plan: PT OT IRF Cardiology consultation appreciated Home meds? Smoking cessation Discharge Diagnosis (1) CVA (cerebral vascular accident) (2) Left-sided weakness (3) Smoker (4) Hypertension (5) Hyperlipemia (6) Diabetes Clinical Quality Measures DVT/VTE Risk/Contraindication: Risk Factor Score Per Nursin RFS Level Per Nursing on Admit: 4+=Very High Stroke: Date of last known well: Oct 07, 2019 Symptoms onset unknown: Yes SUNNY ANDERSON DO Oct 09, 2019 11:36
[2019-10-09] MEDS: ENOXAPARIN 40 MG/0.4 ML (LOVENOX) SYR SC SCH (11:41)
[2019-10-09 11:43] VITALS: BP 139/83
== END 2019-10-09 11:46 ==
LOC: EDUNIT# 21:01 → ER 21:03 → 4TH 10-08 00:20
PROVIDERS: ADMIT Internal Medicine; ATTEND Internal Medicine
DX: I63.9 Cerebral infarction, unspecified (principal); G81.94 Hemiplegia, unspecified affecting left nondominant side; F17.210 Nicotine dependence, cigarettes, uncomplicated; I10 Essential (primary) hypertension; E11.9 Type 2 diabetes mellitus without complications; E78.5 Hyperlipidemia, unspecified; I65.02 Occlusion and stenosis of left vertebral artery; I48.0 Paroxysmal atrial fibrillation; R09.02 Hypoxemia; E03.9 Hypothyroidism, unspecified; F41.9 Anxiety disorder, unspecified; F32.9 Major depressive disorder, single episode, unspecified; E66.9 Obesity, unspecified; Z68.41 Body mass index [BMI] 40.0-44.9, adult; Z85.42 Personal history of malignant neoplasm of other parts of uterus; Z79.82 Long term (current) use of aspirin; Z79.899 Other long term (current) drug therapy; Z79.84 Long term (current) use of oral hypoglycemic drugs; W19.XXXA Unspecified fall, initial encounter
CPT/HCPCS: 36415; 51702; 70496; 70498; 70551; 71045; 72125; 80053; 80061; 80306; 80320; 81000; 82805; 82962; 84484; 85007; 85025; 85027; 85379; 85610; 85730; 93005; 93041; 93306; 93880; 94640; 94664; 94760; G0378

== ENCOUNTER 2019-10-09 10:54 | Inpatient (IN) | payer MEDICAID, OTHER ==
[~2019-10-09] VITALS: Ht 157.5 cm; Wt 103.0 kg
[~2019-10-09 10:54] MED LIST changes: +IBUP-2473 PO
[2019-10-09] MEDS ORDERED: guaiFENesin/CODEINE (ROBITUSSIN AC) 10ML UDC PO PRN (11:15)
[2019-10-09] MEDS ORDERED: LOPERAMIDE 2 MG (IMODIUM) TABLET PO PRN (11:15)
[2019-10-09] MEDS ORDERED: DOCUSATE SODIUM 100 MG (COLACE) CAP PO PRN (11:15)
[2019-10-09] MEDS ORDERED: FLEET ENEMA ADULT 1 EA BTL PR PRN (11:15)
[2019-10-09] MEDS ORDERED: LACTULOSE SYRUP 10GM/15ML (ENULOSE) 30ML UDC PO PRN (11:15)
[2019-10-09] MEDS ORDERED: diphenhydrAMINE 25 MG TAB (BENADRYL) PO PRN (11:15)
[2019-10-09] MEDS ORDERED: CALCIUM CARBONATE 500 MG (TUMS) TAB.CHEW PO PRN (11:15)
[2019-10-09] MEDS ORDERED: BISACODYL 10 MG SUPP (DULCOLAX) PR PRN (11:15)
[2019-10-09] MEDS ORDERED: ALPRAZolam 0.25 MG (XANAX) TAB PO PRN (11:15)
[2019-10-09] MEDS ORDERED: ONDANSETRON 4 MG (ZOFRAN) ORAL DISSOLVE TAB PO PRN (11:15)
--- NOTE | 2019-10-09 11:50 | NUR ---
Iza Panda admitted to room 230-1, with an admitting diagnosis of CVA, on 10/09/19 from 4th floor via wheelchair, accompanied by staff. IZA PANDA introduced to surroundings, call light, bed controls, phone, TV, temperature control, lights, meal times, smoking policy, visitor policy, side rail policy, bathrooms and showers. Patient Rights given to patient in the handbook.IZA PANDA verbalizes understanding that [facility] is not responsible for the loss or damage to any personal effects or valuables that are kept in the patients posession during their hospitalization. The following Patient Care Plans were discussed with the patient: Discharge Planning, CVA & FAll. IZA PANDA verbalizes understanding of Interdisciplinary Patient Education. Patient and/or family were informed about the Rapid Response Team and its purpose. Patient received Patient Rights Booklet, which includes Privacy Act Statement and Data Collection Information Summary.
[2019-10-09] MEDS: ACETAMINOPHEN 500 MG TAB (TYLENOL) PO PRN ×2 (13:13→21:00)
--- OUTSIDE RECORDS SUMMARY | 2019-10-09 13:51 | XMS REPORT | Continuity of Care Document ---
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 [...] PERF 03/24/2019 PEDRITO GRIJALVA MD, Ot Z79.84 RESIDENTIAL (CURRENT) USE OF ORAL HYPOGLYC 03/24/2019 PEDRITO GRIJALVA MD, Ot Z85.42 PERSONAL HISTORY OF MALIGNANT NEOPLASM O 03/24/2019 PEDRITO GRIJALVA MD, Ot Z90.710 ACQUIRED ABSENCE OF BOTH CERVIX AND UTER Procedures Code [place] [address] ROUT INE VENIPUNCTURE 07/19/2012 80994 CMP 07/19/2012 79084 MICR OALBUMIN 07/19/2012 91224 GATO MIN D 25-HYDROXY (D2,D3, TOTAL) 07/19/2012 14537 CPK 07/19/2012 85261 TSH 07/19/2012 66497 A1C (IN-HOUSE) 07/19/2012 71834 MICR O ALBUMIN-IN HOUSE 07/19/2012 07425 ROUT INE VENIPUNCTURE 10/20/2012 89182 LDH 10/20/2012 ANAANA JUANA ANALYZER (SCREEN) 10/21/2012 83441 ALDOLASE 10/23/2012 42600 MYOGLOBIN 10/23/2012 92295 ROUT INE VENIPUNCTURE 11/23/2012 75526 TSH 11/23/2012 91026 ROUT INE VENIPUNCTURE 03/01/2013 07250 A1C (IN-HOUSE) 03/01/2013 82466 MICR O ALBUMIN-IN HOUSE 03/01/2013 55693 H PY EULA (IN-HOUSE) 03/01/2013 94852 CBC 03/01/2013 69821 CMP 03/01/2013 15145 MICR OALBUMIN 03/01/2013 9738735 GF R CALC (RESULT ONLY) 03/01/2013 66163 LIPASE 03/01/2013 33091 T4 FREE 03/01/2013 77315 TSH 03/01/2013 39262 A1C (IN-HOUSE) 08/24/2013 55709 THER APUTIC INJ SQ/IM 08/24/2013 J1885 NITIN DOL INJ 08/24/[address] C HEST W/DYE 08/24/2013 86031 ROUT INE VENIPUNCTURE 12/12/2013 02895 A1C (IN-HOUSE) 12/12/2013 90347 LIPI D PANEL 12/12/2013 63401 TSH 12/12/2013 49616 OXIMETRY 05/06/2014 57925 A1C (IN-HOUSE) 05/06/2014 Results Test Result Range [...] 7-25 CREATININE 0.76 mg/dL 0.50-0.99 eGFR NON-AFR. CYMRAES 82 mL/min/1.73m2 > OR = 60 eGFR [...] 13 U/L 10-35 ALT 13 U/L 6-29 Complete blood count (CBC) with automate d white blood cell (WBC) differential - 10/07/19 21:10 Blood leukocytes automated count (number/volume) 13.7 10*3/uL 4.3-11.0 Blood erythrocytes automated count (number/volume) 5.30 10*6/uL 4.35-5.85 Venous blood hemoglobin measurement (mass/volume) 15.9 g/dL 11.5-16.0 Blood hematocrit (volume fraction) 46 % 35-52 Automated erythrocyte mean corpuscular volume 87 [ foz_us] 80-99 Automated erythrocyte mean corpuscular h emoglobin (mass per erythrocyte) 30 pg 25-34 Automated erythrocyte mean corpuscular h emoglobin concentration measurement (mass/volume) 34 g/dL 32-36 Automated erythrocyte distribution width ratio 14. 7 % 10.0- 14.5 Automated blood platelet count (count/volume) 389 10*3/uL 130-400 Automated blood platelet mean volume measurement 10.6 [foz_us] 7.4-10.4 Automated blood neutrophils/100 leukocytes 65 % 42-75 Automated blood lymphocytes/100 leukocytes 25 % 12-44 Blood monocytes/100 leukocytes 8 % 0-12 Automated blood eosinophils/100 leukocytes 2 % 0-10 Automated blood basophils/100 leukocytes 1 % 0-10 Blood neutrophils automated count (number/volume) 8.9 10*3 1.8-7.8 Blood lymphocytes automated count (number/volume) 3.4 10*3 1.0-4.0 Blood monocytes automated count (number/volume) 1. 1 10*3 0.0-1.0 Automated eosinophil count 0.2 10*3/uL 0 .0-0.3 Automated blood basophil count (count/volume) 0.1 10*3/uL 0.0-0.1 PT panel in platelet poor plasma by coag ulation assay - 10/07/19 21:10 Prothrombin time (PT) in platelet poor plasma by coagu lation assay 12.7 s 12.2-14.7 INR in platelet poor plasma or blood by coagulation as say 0.9 0.8-1.4 Activated partial thromboplastin time (a PTT) in platelet poor plasma bycoagulation assay - 10/07/19 21:10 Activated partial thromboplastin time (a PTT) in platelet poor plasma bycoagulation assay 34 s 24-35 Fibrin D-dimer FEU measurement in platel et poor plasma (mass/volume) - 10/07/19 21:10 Fibrin D-dimer FEU measurement in platelet poor plasma (mass/volume) 0.49 ug/mL 0.00-0.49 Comprehensive metabolic panel - 10/07/19 21:10 Serum or plasma sodium measurement (moles/volume) 133 mmol/L 135-145 Serum or plasma potassium measurement (moles/volume) 4.4 mmol/L 3.6-5.0 Serum or plasma chloride measurement (moles/volume) 95 mmol/L 98-107 Carbon dioxide 24 mmol/L 21-32 Serum or plasma anion gap determination (moles/volume) 14 mmol/L 5-14 Serum or plasma urea nitrogen measurement (mass/volume ) 12 mg/dL 7-18 Serum or plasma creatinine measurement (mass/volume) 0.96 mg/dL 0.60-1.30 Serum or plasma urea nitrogen/creatinine mass ratio 13 NRG Serum or plasma creatinine measurement w ith calculation of estimated glomerular filtration rate 58 NRG Serum or plasma glucose measurement (mass/volume) 224 mg/dL 70-105 Serum or plasma calcium measurement (mass/volume) 9.8 mg/dL 8.5-10.1 Serum or plasma total bilirubin measurement (mass/volu me) 0.2 mg/dL 0.1-1.0 Serum or plasma alkaline phosphatase kimberly surement (enzymatic activity/volume) 96 U/L 40-136 Serum or plasma aspartate aminotransfera se measurement (enzymatic activity/volume) 26 U/L 5-34 Serum or plasma alanine aminotransferase measurement (enzymatic activity/volume) 20 U/L 0-55 Serum or plasma protein measurement (mass/volume) 7.5 g/dL 6.4-8.2 Serum or plasma albumin measurement (mass/volume) 4.6 g/dL 3.2-4.5 Serum or plasma troponin i.cardiac measu rement (mass/volume) - 10/07/19 21:10 Serum or plasma troponin i.cardiac measurement (mass/v olume) < ng/mL <0.028 Serum or plasma ethanol measurement (mas s/volume) - 10/07/19 21:10 Serum or plasma ethanol measurement (mass/volume) < mg/dL <10 Capillary blood glucose measurement by g lucometer (mass/volume) - 10/07/19 21:16 Capillary blood glucose measurement by glucometer (mas s/volume) 212 mg/dL 70-110 Complete urinalysis with reflex to cultu re - 10/07/19 21:35 Urine color determination YELLOW NRG Urine clarity determination CLEAR NR G Urine pH measurement by test strip 6.0 5-9 Specific gravity of urine by test strip >= 1.016-1.022 Urine protein assay by test strip, semi-quantitative 3+ NEGATIVE Urine glucose detection by automated test strip NE GATIVE NEGATIVE Erythrocytes detection in urine sediment by light micr oscopy NEGATIVE NEGATIVE Urine ketones detection by automated test strip NE GATIVE NEGATIVE Urine nitrite detection by test strip NEGATIVE NEGATIVE Urine total bilirubin detection by test strip NEGA TIVE NEGATIVE Urine urobilinogen measurement by automated test strip (mass/volume) 0.2 mg/dL < = 1.0 Urine leukocyte esterase detection by dipstick NEG ATIVE NEGATIVE Automated urine sediment erythrocyte cou nt by microscopy (number/high power field) NONE NRG Automated urine sediment leukocyte count by microscopy (number/high power field) NONE NRG Bacteria detection in urine sediment by light microsco py NEGATIVE NRG Squamous epithelial cells detection in u rine sediment by light microscopy NONE NRG Crystals detection in urine sediment by light microsco py NONE NRG Casts detection in urine sediment by light microscopy NONE NRG Mucus detection in urine sediment by light microscopy SMALL NRG Complete urinalysis with reflex to culture NO NRG Urine drug screening test - 10/07/19 21: 35 Urine phencyclidine detection by screening method NEGATIVE NEGATIVE Urine benzodiazepines detection by screening method NEGATIVE NEGATIVE Urine cocaine detection NEGATIVE NEGATI VE Urine amphetamines detection by screening method N EGATIVE NEGATIVE Urine methamphetamine detection by screening method NEGATIVE NEGATIVE Urine cannabinoids detection by screening method N EGATIVE NEGATIVE Urine opiates detection by screening method NEGATI VE NEGATIVE Urine barbiturates detection NEGATIVE N EGATIVE Screening urine tricyclic antidepressants detection NEGATIVE NEGATIVE Urine methadone detection by screening method NEGA TIVE NEGATIVE Urine oxycodone detection NEGATIVE NEGA TIVE Urine propoxyphene detection NEGATIVE N EGATIVE Arterial blood gas measurement - 0 21:50 Blood pCO2 41 mm[Hg] 35-45 Blood pO2 63 mm[Hg] 79-93 Arterial blood bicarbonate measurement (moles/volume) 25 mmol/L 23-27 Arterial blood base excess by calculation 0.9 mmol /L -2.5-2.5 Arterial blood oxygen saturation measurement 92 % 94-100 * Inhaled oxygen flow rate ROOM AIR NRG Arterial blood pH measurement with patient temperature correction 7.40 7.37-7.43 Arterial blood carbon dioxide, total measurement (mole s/volume) 26.5 mmol/L 21.0-31.0 Body site RIGHT RADIAL NRG Assessment of wrist artery patency prior to arterial p uncture YES-POS NRG Setting of ventilation mode NO NR G Measurement of body temperature 36.7 NRG Capillary blood glucose measurement by g lucometer (mass/volume) - 10/08/19 05:55 Capillary blood glucose measurement by glucometer (mas s/volume) 173 mg/dL 70-110 Lipid 1996 panel - 10/08/19 05:55 Serum or plasma triglyceride measurement (mass/volume) 107 mg/dL <150 Serum or plasma cholesterol measurement (mass/volume) 209 mg/dL < 200 Serum or plasma cholesterol in HDL measurement (mass/v olume) 56 mg/dL 40-60 Cholesterol in LDL [mass/volume] in serum or plasma by direct assay 152 mg/dL 1-129 Serum or plasma cholesterol in VLDL measurement (mass/ volume) 21 mg/dL 5-40 Complete blood count (CBC) with automate d white blood cell (WBC) differential - 10/08/19 05:55 Blood leukocytes automated count (number/volume) 15.7 10*3/uL 4.3-11.0 Blood erythrocytes automated count (number/volume) 4.87 10*6/uL 4.35-5.85 Venous blood hemoglobin measurement (mass/volume) 14.4 g/dL 11.5-16.0 Blood hematocrit (volume fraction) 43 % 35-52 Automated erythrocyte mean corpuscular volume 89 [ foz_us] 80-99 Automated erythrocyte mean corpuscular h emoglobin (mass per erythrocyte) 30 pg 25-34 Automated erythrocyte mean corpuscular h emoglobin concentration measurement (mass/volume) 33 g/dL 32-36 Automated erythrocyte distribution width ratio 14. 9 % 10.0- 14.5 Automated blood platelet count (count/volume) 371 10*3/uL 130-400 Automated blood platelet mean volume measurement 11.1 [foz_us] 7.4-10.4 Automated blood neutrophils/100 leukocytes 75 % 42-75 Automated blood lymphocytes/100 leukocytes 16 % 12-44 Blood monocytes/100 leukocytes 8 % 0-12 Automated blood eosinophils/100 leukocytes 1 % 0-10 Automated blood basophils/100 leukocytes 0 % 0-10 Blood neutrophils automated count (number/volume) 11.8 10*3 1.8-7.8 Blood lymphocytes automated count (number/volume) 2.4 10*3 1.0-4.0 Blood monocytes automated count (number/volume) 1. 2 10*3 0.0-1.0 Automated eosinophil count 0.2 10*3/uL 0 .0-0.3 Automated blood basophil count (count/volume) 0.1 10*3/uL 0.0-0.1 Comprehensive metabolic panel - 10/08/19 05:55 Serum or plasma sodium measurement (moles/volume) 134 mmol/L 135-145 Serum or plasma potassium measurement (moles/volume) 4.4 mmol/L 3.6-5.0 Serum or plasma chloride measurement (moles/volume) 99 mmol/L 98-107 Carbon dioxide 23 mmol/L 21-32 Serum or plasma anion gap determination (moles/volume) 12 mmol/L 5-14 Serum or plasma urea nitrogen measurement (mass/volume ) 8 mg/dL 7-18 Serum or plasma creatinine measurement (mass/volume) 0.73 mg/dL 0.60-1.30 Serum or plasma urea nitrogen/creatinine mass ratio 11 NRG Serum or plasma creatinine measurement w ith calculation of estimated glomerular filtration rate > NRG Serum or plasma glucose measurement (mass/volume) 170 mg/dL 70-105 Serum or plasma calcium measurement (mass/volume) 8.9 mg/dL 8.5-10.1 Serum or plasma total bilirubin measurement (mass/volu me) 0.3 mg/dL 0.1-1.0 Serum or plasma alkaline phosphatase kimberly surement (enzymatic activity/volume) 79 U/L 40-136 Serum or plasma aspartate aminotransfera se measurement (enzymatic activity/volume) 22 U/L 5-34 Serum or plasma alanine aminotransferase measurement (enzymatic activity/volume) 19 U/L 0-55 Serum or plasma protein measurement (mass/volume) 6.6 g/dL 6.4-8.2 Serum or plasma albumin measurement (mass/volume) 4.1 g/dL 3.2-4.5 CALCIUM CORRECTED 8.8 mg/dL 8.5-10.1 Manual absolute plasma cell count - 09/16 10/04 05:55 Blood monocytes/100 leukocytes 3 % NRG Manual blood segmented neutrophils/100 leukocytes 70 % NRG Manual blood lymphocytes/100 leukocytes 25 % NRG Manual eosinophils/100 leukocytes in nose 1 % NRG Manual blood basophils/100 leukocytes 1 % NRG Blood erythrocyte morphology finding identification NORMAL NRG Capillary blood glucose measurement by g lucometer (mass/volume) - 10/08/19 12:09 Capillary blood glucose measurement by glucometer (mas s/volume) 163 mg/dL 70-110 Capillary blood glucose measurement by g lucometer (mass/volume) - 10/08/19 16:42 Capillary blood glucose measurement by glucometer (mas s/volume) 163 mg/dL 70-110 Capillary blood glucose measurement by g lucometer (mass/volume) - 10/08/19 20:07 Capillary blood glucose measurement by glucometer (mas s/volume) 168 mg/dL 70-110 Capillary blood glucose measurement by g lucometer (mass/volume) - 10/09/19 05:34 Capillary blood glucose measurement by glucometer (mas s/volume) 159 mg/dL 70-110 Complete blood count (CBC) with automate d white blood cell (WBC) differential - 10/09/19 06:05 Blood leukocytes automated count (number/volume) 11.7 10*3/uL 4.3-11.0 Blood erythrocytes automated count (number/volume) 4.59 10*6/uL 4.35-5.85 Venous blood hemoglobin measurement (mass/volume) 13.6 g/dL 11.5-16.0 Blood hematocrit (volume fraction) 41 % 35-52 Automated erythrocyte mean corpuscular volume 89 [ foz_us] 80-99 Automated erythrocyte mean corpuscular h emoglobin (mass per erythrocyte) 30 pg 25-34 Automated erythrocyte mean corpuscular h emoglobin concentration measurement (mass/volume) 33 g/dL 32-36 Automated erythrocyte distribution width ratio 14. 5 % 10.0- 14.5 Automated blood platelet count (count/volume) 329 10*3/uL 130-400 Automated blood platelet mean volume measurement 10.8 [foz_us] 7.4-10.4 Automated blood neutrophils/100 leukocytes 70 % 42-75 Automated blood lymphocytes/100 leukocytes 19 % 12-44 Blood monocytes/100 leukocytes 8 % 0-12 Automated blood eosinophils/100 leukocytes 2 % 0-10 Automated blood basophils/100 leukocytes 0 % 0-10 Blood neutrophils automated count (number/volume) 8.2 10*3 1.8-7.8 Blood lymphocytes automated count (number/volume) 2.2 10*3 1.0-4.0 Blood monocytes automated count (number/volume) 1. 0 10*3 0.0-1.0 Automated eosinophil count 0.3 10*3/uL 0 .0-0.3 Automated blood basophil count (count/volume) 0.1 10*3/uL 0.0-0.1 Comprehensive metabolic panel - 10/09/19 06:05 Serum or plasma sodium measurement (moles/volume) 129 mmol/L 135-145 Serum or plasma potassium measurement (moles/volume) 4.1 mmol/L 3.6-5.0 Serum or plasma chloride measurement (moles/volume) 94 mmol/L 98-107 Carbon dioxide 25 mmol/L 21-32 Serum or plasma anion gap determination (moles/volume) 10 mmol/L 5-14 Serum or plasma urea nitrogen measurement (mass/volume ) 11 mg/dL 7-18 Serum or plasma creatinine measurement (mass/volume) 0.69 mg/dL 0.60-1.30 Serum or plasma urea nitrogen/creatinine mass ratio 16 NRG Serum or plasma creatinine measurement w ith calculation of estimated glomerular filtration rate > NRG Serum or plasma glucose measurement (mass/volume) 173 mg/dL 70-105 Serum or plasma calcium measurement (mass/volume) 9.0 mg/dL 8.5-10.1 Serum or plasma total bilirubin measurement (mass/volu me) 0.4 mg/dL 0.1-1.0 Serum or plasma alkaline phosphatase kimberly surement (enzymatic activity/volume) 81 U/L 40-136 Serum or plasma aspartate aminotransfera se measurement (enzymatic activity/volume) 19 U/L 5-34 Serum or plasma alanine aminotransferase measurement (enzymatic activity/volume) 19 U/L 0-55 Serum or plasma protein measurement (mass/volume) 6.4 g/dL 6.4-8.2 Serum or plasma albumin measurement (mass/volume) 3.9 g/dL 3.2-4.5 CALCIUM CORRECTED 9.1 mg/dL 8.5-10.1 Capillary blood glucose measurement by g lucometer (mass/volume) - 10/09/19 11:10 Capillary blood glucose measurement by glucometer (mas s/volume) 186 mg/dL 70-110 Encounters ACCT No. Visit Date/Time Discharge Status Pt. Type Provider Facility Loc./Unit Complaint [id number] 05/06/2014 17:27:00 05/06/2014 23:59: 59 CLS Outpatient KRYSTAL SUAREZ DO [id number] 12/12/2013 09:36:00 12/12/2013 23:59: 59 CLS Outpatient CAROLINE BRITT APRN [id number] 09/21/2013 10:04:00 09/21/2013 23:59: 59 CLS Outpatient ROBERTO HALL MD [id number] 08/24/2013 08:36:00 08/24/2013 23:59: 59 CLS Outpatient ROBERTO HALL MD [id number] 03/01/2013 08:26:00 03/01/2013 23:59: 59 CLS Outpatient ROBERTO HALL MD [id number] 10/20/2012 13:16:00 10/20/2012 23:59: 59 CLS Outpatient KRYSTAL SUAREZ DO [id number] 09/27/2012 09:21:00 09/27/2012 23:59: 59 CLS Outpatient KRYSTAL SUAREZ DO [id number] 07/19/2012 08:42:00 07/19/2012 23:59: 59 CLS Outpatient KRYSTAL SUAREZ DO [id number] 03/28/2012 09:54:00 03/28/2012 23:59:5 9 CLS Outpatient [id number] 11/23/2012 15:39:00 Document Registration [id number] 06/10/2016 08:35:00 Document Registration [id number] 03/22/2019 14:39:00 019 12:20:00 DIS Outpatient VALENTINE MACIAS, PEDRITO Paez [facility] 4TH STROKE LIKE SYMPTOMS [id number] 04/15/2015 18:28:00 015 23:08:00 DIS Emergency WINSOME GONZALEZ DO [facility] ER ABD MUSCLE SPASMS [id number] 06/01/2014 19:50:00 014 21:51:00 DIS Emergency CARLOS WINSOME HOGAN [facility] ER RIB PAIN [id number] 08/27/2013 11:26:00 014 23:59:59 CLS Outpatient ISABEL MACIAS, ROBERTO Kelley [facility] RAD [id number] 08/16/2013 21:24:00 014 12:00:00 DIS Inpatient MONTANA KELSEY MD [facility] 4TH [id number] 10/08/2019 00:20:[address] Inpatient PUSHPA MACIAS, ENEDELIA Flanagan [facility] 4TH PHYSICAL DEBILITY,FALL, HYPO KAMALJIT,COPD, [id number] 12/13/2011 23:35:00 Document Registration [id number] 06/17/2011 10:01:00 Document Registration [id number] 05/23/2010 16:57:00 Document Registration [id number] 01/01/2010 20:55:00 Document Registration [id number] 09/20/2019 16:00:00 09/20/2019 23:59:5 9 CLS Outpatient ANTONINO ZAYAS [facility] [id number] 09/20/2019 16:00:00 Document Registration [id number] 04/17/2019 14:20:00 Document Registration [id number] 12/30/2017 12:40:00 Document Registration [id number] 10/18/2017 11:00:00 Document Registration
[2019-10-09] MEDS: VITAMIN D3 25 MCG (1,000 UNITS) TABLET PO SCH ×2 (13:57→20:59)
[2019-10-09] MEDS ORDERED: RT-ALBUTEROL/IPRATROPIUM 3 ML (DUONEB) VIAL INH SCH (14:00)
--- NOTE | 2019-10-09 14:30 | Physical Therapy Evaluation ---
PT Evaluation-General Medical Diagnosis Admission Date Oct 09, 2019 at 12:21 Medical Diagnosis: CVA Onset Date: Oct 07, 2019 Therapy Diagnosis Therapy Diagnosis: weakness, decreased mobility Height/Weight Height (Feet): 5 Height (Inches): 2.00 Weight (Pounds): 234 Weight (Ounces): 4.0 Precautions Precautions/Isolations: Fall Prevention Weight Bear Status Right Lower Extremity: Right Full Weight Bearing Left Lower Extremity: Left Full Weight Bearing Referral Physician: Dr. Gutiérrez Reason for Referral: Evaluation/Treatment Medical History Pertinent Medical History: COPD, DM, HTN Additional Medical History uterine cancer, anxiety/depression Current History Pt. fell at home, presented to ER with L-sided weakness. Reviewed History: Yes Social History Home: Apartment Current Living Status: Alone Entry Into Home: Stairs With Railing PT Steps Into Home: 12 Prior Prior Level of Function SCALE: Activities may be completed with or without assistive devices. 4-Mifjkcosoa-sfsjsip completes the activity by him/herself with no assistance from a helper. 5-Set-up or Clean-up Assistance-helper sets up or cleans up; patient completes activity. [place] assists only prior to or following the activity. 4-Supervision or Touching Assistance-helper provides verbal cues and/or touching/steadying and/or contact guard assistance as patient completes activity. Assistance may be provided throughout the activity or intermittently. 3-Partial/Moderate Assistance-helper does LESS THAN HALF the effort. [place] lifts, holds or supports trunk or limbs, but provides less than half the effort. 2-Substantial/Maximal Assistance-helper does MORE THAN HALF the effort. [place] lifts or holds trunk or limbs and provides more than half the effort. 3-Twnvbqkpb-zrldnc does ALL the effort. Patient does none of the effort to comp lete the activity. Or, the assistance of 2 or more helpers is required for the patient to complete the activity. If activity was not attempted, code reason: 7-Patient Refused. 9-Not Applicable-not attempted and the patient did not perform the activity before the current illness, exacerbation or injury. 10-Not Attempted due to Environmental Limitations-(lack of equipment, weather restraints, etc.). 88-Not Attempted due to Medical Conditions or Safety Concerns. Bed Mobility: 6 Transfers (B,C,W/C): 6 Gait: 6 Stairs: 6 Indoor Mobility (Ambulation): Independent Stairs: Independent Prior Device Use: pt. has a SPC which she uses periodically. PT Evaluation-Current Subjective Pt. in bed upon arrival, states "I peed." Pt. has no reports of pain. Pt/Family Goals home alone Objective Patient Orientation: Person, Place, Time, Situation ROM/Strength ROM Upper Extremities See OT ROM Lower Extremities WFL (B) hip, knee, ankle Strength Upper Extremities See OT Strength Lower Extremities grossly 5/5 R hip, knee, ankle. grossly 3/5 L hip, 3+/5 L knee and ankle. Integumentary/Posture Integumentary unremarkable Bowel Incontinence: No Bladder Incontinence: Yes Posture rounded shoulders, forward head Neuromuscular (Tone, Coordination, Reflexes) decreased coordination L upper and lower extremities Sensory Vision: Wears Glasses Hearing: Functional Hand Dominance: Right Sensation Right Upper Extremit: Intact Sensation Left Upper Extremity: Intact Sensation Right Lower Extremit: Intact Sensation Left Lower Extremity: Intact Transfers Roll Left to Right (QC): 4 Sit to Lying (QC): 3 Lying to Sitting/Side of Bed(Q: 3 Sit to Stand (QC): 3 Chair/Qcx-zn-Ifqja Xfer(QC): 1 Toilet Transfer (QC): 1 Car Transfer (QC): 88 Gait Does the Patient Walk?: Yes Mode of Locomotion: Walk Anticipated Mode of Locomotion: Walk Walk 10 feet (QC): 88 Walk 50 ft with 2 Turns(QC): 88 Walk 150 ft (QC): 88 Walking 10ft/uneven surface-QC: 88 Gait Assistive Device: FWW Comments/Gait Description Pt. progressively leans to the left while standing and during transfers. She aguiar s difficulty lifting the L LE to ambulate, unsafe to ambulate at this time. Wheelchair Training Does the Pt Use a Wheelchair?: No Wheel 50 ft with 2 turns (QC): 09 Wheel 150 ft (QC): 09 Stairs 1 Step (curb) (QC): 88 4 Steps (QC): 88 12 Steps (QC): 88 Balance Sitting Static: Fair Sitting Dynamic: Fair Standing Static: Poor Standing Dynamic: Poor Picking up an Object (QC): 88 Treatment Co-treat with OT necessary at this time. OT working on L UE placement and PT cu ing L LE placement and directing movement to complete transfers safely. Pt. tends to lean towards left and is impulsive with movements; often inconsistent with extremity movement ranging from near full motion to minimal movement. PT assists patient with sitting balance to complete ADLs with OT; ranging from SBA to min A with sitting balance and often needing cues for posture and L UE positioning. Pt. completes sitting and supine LE exercises with mod assist on L x 10 reps: APs, QS, SLR, hip abd, LAQ. Assessment/Needs Pt. is a 64 y.o. female who presents with left sided weakness and mobility deficits. Pt. is currently assist x 2 with transfers. She demonstrates uncoordinated movements of the left extremities and transfer ability is inconsistent. Pt. would benefit from skilled PT to improve mobility, strength, and independence for return home. Rehab Potential: Good PT Medicare Sales Executive Goals Mcfp Goals PT Mcfp Goals Time Frame: Oct 30, 2019 Roll Left & Right (QC): 6 Sit to Lying (QC): 6 Lying-Sitting on Side/Bed(QC): 6 Sit to Stand (QC): 6 Chair/Zgg-ke-Jezdz Xfer(QC): 6 Toilet Transfer (QC): 6 Car Transfer (QC): 6 Does the Patient Walk: Yes Walk 10 feet (QC): 6 Walk 50ft with 2 Turns (QC): 6 Walk 150 ft (QC): 6 Walking 10ft on Uneven Surface: 6 1 Step (curb) (QC): 6 4 Steps (QC): 6 12 Steps (QC): 6 Picking up an Object (QC): 6 Does the Pt use WC or Scooter?: No Wheel 50 feet with 2 turns (QC: 09 Wheel 150 feet: 09 PT Plan Problem List Problem List: Activity Tolerance, Functional Strength, Safety, Balance, Gait, Transfer, Bed Mobility, ROM Treatment/Plan Treatment Plan: Continue Plan of Care Treatment Plan: Bed Mobility, Concurrent Therapy, Education, Functional Activity Marjorie, Functional Strength, Group Therapy, Gait, Safety, Therapeutic Exercise, Transfers Treatment Duration: Oct 30, 2019 Frequency: 6 times per week Estimated Hrs Per Day: 1.5 hours per day Patient and/or Family Agrees t: Yes Time/GCodes Time In: 1150 Time Out: 1220 Total Billed Treatment Time: 90 Total Billed Treatment 1, [facility] 15' 1, FA x 5, 75' BILLIE LEE PT Oct 09, 2019 14:30
--- NOTE | 2019-10-09 14:58 | Occupational Therapy Eval ---
OT Evaluation-General/PLF Medical Diagnosis Admission Date Oct 09, 2019 at 12:21 Medical Diagnosis: CVA Onset Date: Oct 08, 2019 Therapy Diagnosis Therapy Diagnosis: impaired self care skills Height/Weight Height (Feet): 5 Height (Inches): 2.00 Weight (Pounds): 234 Weight (Ounces): 4.0 Referral Physician: Marla Medical History Pertinent Medical History: COPD, DM, HTN Reviewed History: Yes Social History Current Living Status: Alone Entry Into Home: Stairs With Railing ADL-Prior Level of Function SCALE: Activities may be completed with or without assistive devices. 6-Bqflmmtsmy-gamvtna completes the activity by him/herself with no assistance from a helper. 5-Set-up or Clean-up Assistance-helper sets up or cleans up; patient completes activity. [place] assists only prior to or following the activity. 4-Supervision or Touching Assistance-helper provides verbal cues and/or touching/steadying and/or contact guard assistance as patient completes activity. Assistance may be provided throughout the activity or intermittently. 3-Partial/Moderate Assistance-helper does LESS THAN HALF the effort. [place] lifts, holds or supports trunk or limbs, but provides less than half the effort. 2-Substantial/Maximal Assistance-helper does MORE THAN HALF the effort. [place] lifts or holds trunk or limbs and provides more than half the effort. 0-Rkkcpzjge-hbzlqg does ALL the effort. Patient does none of the effort to complete the activity. Or, the assistance of 2 or more helpers is required for the patient to complete the activity. If activity was not attempted, code reason: 7-Patient Refused. 9-Not Applicable-not attempted and the patient did not perform the activity before the current illness, exacerbation or injury. 10-Not Attempted due to Environmental Limitations-(lack of equipment, weather restraints, etc.). 88-Not Attempted due to Medical Conditions or Safety Concerns. ADL PLOF Comments Pt states IND with use of AE. Pt did not receive assist prior though had grand son/ daughter present at times, has daughter who assists with driving/ grocery tasks. Drive Self: No OT Current Status Subjective Pt agreeable to therapy. Reports nausea and headache, RN notified and provided m edication. Mental Status/Objective Patient Orientation: Person, Place Current Glasses/Contacts: Yes Dentures/Partials: No Hand Dominance: Right Upper Extremity ROM Right UE WFL Left UE: Pt able to abduct shoulder to ~90degrees, but fatigues quickly. Pt slow to complete elbow, wrist, and hand movements. Left UE movement various throughout functional task completion Upper Extremity Coordination Right UE WFL Left UE impaired ADL-Treatment ADL-Current Co- treat with PT after initial evaluation secondary to impaired mobility, strength, safety, and need for two skilled clinicians. OT focusing on ADLs, safety, sequencing, and UE management. PT focusing on transfers, balance during functional tasks, and mobility. Pt requires assist x2 for transfers and LE ADLs. Pt leans to left in standing and requires multiple cues for UE/LE placement and sequencing during transfers. Pt is impulsive with mobility. Inconsistent with movement of left UE/LE. Eating (QC): 5 (Pt able to feed self after set up using right UE) Oral Hygiene (QC): 7 (Pt refused to complete during session) Shower/Bathe Self (QC): 2 (To shower room via shower chair. Pt able to wash left UE, chest, and abdomen. Attempts to wash right UE and yudelka area, but requires assist to complete thorough hygiene. Assist required for lower body bathing. Pt leans to left and requires cues for placement of left UE during bathing tasks.) Upper Body Dressing (QC): 7 (pt wearing hospital gown) Lower Body Dressing (QC): 1 (Pt requires total assist to thread LE into depends. Assist x2 for safety to stand and complete pant hike. Pt leans to left in standing) On/Off Footwear (QC): 1 (total assist to doff/don socks) Toileting Hygiene (QC): 1 (Pt incontinent of urine. Requires total assist to complete hygiene.) Pt participated in left UE A/AAROM at shoulder, elbow, and wrist. Fatigues quickly with movement. Requires encouragement to participate in activity. Pt resting in bed with needs met after session. Education OT Patient Education: Rehab process Teaching Recipient: Patient Teaching Methods: Discussion Response to Teaching: Reinforcement Needed OT Short Term Goals Short Term Goals Time Frame: Oct 16, 2019 Toileting hygiene: 2 Shower/bathe self: 3 Upper body dressin Lower body dressin OT Party Planner Goals Long-Term Goals Time Frame: Oct 30, 2019 Eating (QC): 6 Oral Hygiene (QC): 6 Toileting Hygiene (QC): 5 Shower/Bathe Self (QC): 5 Upper Body Dressing (QC): 6 Lower Body Dressing (QC): 5 On/Off Footwear (QC): 5 Additional Goals: 1-Demonstrate ADL Tasks, 2-Verbalize Understanding, 3- ImproveStrength/Marjorie 1=Demonstrate adherence to instructed precautions during ADL tasks. 2=Patient will verbalize/demonstrate understanding of assistive devices/modifications for ADL. 3=Patient will improve strength/tolerance for activity to enable patient to perform ADL's. OT Education/Plan Problem List/Assessment Assessment: Decreased Activ Tolerance, Decreased Safety Aware, Decreased UE Strength, Dependent Transfers, Impaired Coordination, Impaired Funct Balance, Impaired I ADL's, Impaired Self-Care Skills Pt to benefit from skilled OT intervention for ADL training, transfers, strengthening, and home safety education to increase level of independence and allow safe discharge. Discharge Recommendations Plan/Recommendations: Continue POC Treatment Plan/Plan of Care Treatment,Training & Education: Yes Patient would benefit from OT for education, treatment and training to promote independence in ADL's, mobility, safety and/or upper extremity function for ADL's. Plan of Care: ADL Retraining, Functional Mobility, Group Exercise/Act as Ind, UE Funct Exercise/Act, UE Neuromus Re-Ed/Coord Treatment Duration: Oct 30, 2019 Frequency: At least 5 of 7 days/Wk (IRF) Estimated Hrs Per Day: 1.5 hours per day Rehab Potential: Fair Time/GCodes Start Time: 12:05 (1300) Stop Time: 12:20 (1415) Total Time Billed (hr/min): 90 Billed Treatment Time 2 visit, EVM(15minutes) 5710-0825 ADLx5(75minutes) 7210-0241; Co-treat with PT 75minutes SULEMAN CRUZ OT Oct 09, 2019 14:58
--- NOTE | 2019-10-09 16:50 | NUR ---
Patient O2 sat at 86% on Room Air. 2L O2 applied via nasal canula. O2 came up to 94% quickly.
[2019-10-09 17:25] VITALS: BP 169/81
[2019-10-09] MEDS: inSUlin ASPART (NovoLOG) 1 UNIT/0.01 ML (CHARGE PER UNIT) SC SCH ×2 (17:25→21:02)
[2019-10-09 18:10] VITALS: BP 153/90
[2019-10-09] MEDS: RT-ALBUTEROL/IPRATROPIUM 3 ML (DUONEB) VIAL INH SCH (18:42)
--- NOTE | 2019-10-09 19:21 | NUR ---
bedside report received from CHRISTIAN ALEMAN, assume care of pt
[2019-10-09] MEDS: MULTIVIT W/MINERALS TAB (THERAGRAN M) PO SCH (20:59)
[2019-10-09] MEDS: ASPIRIN E.C. 81 MG (ECOTRIN) TAB PO SCH (20:59)
[2019-10-09] MEDS: ENOXAPARIN 40 MG/0.4 ML (LOVENOX) SYR SC SCH (21:00)
--- NOTE | 2019-10-09 21:02 | NUR ---
refused Colace, miralax & Senokot, fsbs 201 NovoLog 3 units given, pt stated did not sleep well last night, offered melatonin but pt states does not do much for me, c/o lt shoulder sore offered Tylenol or Lortab pt states nothing stronger than Motrin, Tylenol 500mg give for pain level 5/10 on numeric scale
[2019-10-09] MEDS: polyethylene glycoL POWDER 17 GM (MIRALAX) PACK PO SCH (21:06)
[2019-10-09] MEDS: SENNA W/DOCUSATE (SENOKOT S) TABLET PO SCH (21:06)
[2019-10-09] MEDS: DOCUSATE SODIUM 100 MG (COLACE) CAP PO SCH (21:07)
--- NOTE | 2019-10-09 21:40 | NUR ---
resting quietly in bed, pain level 0/10 on CNPI scale
[2019-10-10] MEDS: IBUPROFEN TABLET 200 MG TAB PO PRN ×2 (01:35→07:00)
--- NOTE | 2019-10-10 01:35 | NUR ---
c/o pain to lt shoulder, pain level 10/10 on numeric scale, Motrin 400mg given, as pt refuses Lortab
--- NOTE | 2019-10-10 02:05 | NUR ---
resting quietly in bed, pain level 0/10 on CNPI scale
[2019-10-10 05:50] VITALS: BP 168/74
[2019-10-10] MEDS: inSUlin ASPART (NovoLOG) 1 UNIT/0.01 ML (CHARGE PER UNIT) SC SCH ×4 (06:00→20:48)
[2019-10-10 06:01] LABS: BASOPHILS # (AUTO) 0.1 10^3/uL (0.0-0.1); BASOPHILS % (AUTO) 0 % (0-10); EOSINOPHILS # (AUTO) 0.2 10^3/uL (0.0-0.3); EOSINOPHILS % (AUTO) 2 % (0-10); HEMATOCRIT 41 % (35-52); HEMOGLOBIN 13.7 G/DL (11.5-16.0); LYMPHOCYTES # (AUTO) 2.2 X 10^3 (1.0-4.0); LYMPHOCYTES % (AUTO) 16 % (12-44); MEAN CORPUSCULAR HEMOGLOBIN 30 PG (25-34); MEAN CORPUSCULAR HGB CONC 34 G/DL (32-36); MEAN CORPUSCULAR VOLUME 88 FL (80-99); MEAN PLATELET VOLUME 10.5 FL (7.4-10.4); MONOCYTES # (AUTO) 1.1 X 10^3 (0.0-1.0); MONOCYTES % (AUTO) 8 % (0-12); NEUTROPHILS # (AUTO) 9.9 X 10^3 (1.8-7.8); NEUTROPHILS % (AUTO) 74 % (42-75); PLATELET COUNT 346 10^3/uL (130-400); RED CELL DISTRIBUTION WIDTH 14.5 % (10.0-14.5); WHITE BLOOD COUNT 13.4 10^3/uL (4.3-11.0)
[2019-10-10 06:17] LABS: ALANINE AMINOTRANSFERASE 18 U/L (0-55); ALKALINE PHOSPHATASE 79 U/L (40-136); BILIRUBIN,TOTAL 0.4 MG/DL (0.1-1.0); BUN/CREATININE RATIO 13; CALCIUM 9.1 MG/DL (8.5-10.1); CARBON DIOXIDE 24 MMOL/L (21-32); CHLORIDE 92 MMOL/L (98-107); GFR ESTIMATED > 60; GLUCOSE 176 MG/DL (70-105); POTASSIUM 4.3 MMOL/L (3.6-5.0); SODIUM 128 MMOL/L (135-145); TOTAL PROTEIN 6.5 GM/DL (6.4-8.2)
[2019-10-10] MEDS: metFORMIN 500 MG (GLUCOPHAGE) TAB PO SCH ×2 (06:54→17:21)
--- NOTE | 2019-10-10 07:00 | NUR ---
c/o lt shoulder pain, level 10/10 on numeric scale, Motrin 400mg given
[2019-10-10] MEDS: RT-ALBUTEROL/IPRATROPIUM 3 ML (DUONEB) VIAL INH SCH ×4 (07:28→19:38)
[2019-10-10] MEDS: SENNA W/DOCUSATE (SENOKOT S) TABLET PO SCH ×2 (08:16→20:48)
[2019-10-10] MEDS: OMEGA 3 (FISH OIL) 1000 MG CAP PO SCH (08:16)
[2019-10-10] MEDS: ENOXAPARIN 40 MG/0.4 ML (LOVENOX) SYR SC SCH ×2 (08:17→20:43)
[2019-10-10] MEDS: PIOGLITAZONE 30MG (ACTOS) TAB PO SCH (08:17)
[2019-10-10] MEDS: CLOPIDOGREL 75 MG (PLAVIX) TABLET PO SCH (08:17)
[2019-10-10] MEDS: DOCUSATE SODIUM 100 MG (COLACE) CAP PO SCH ×2 (08:18→20:48)
[2019-10-10] MEDS: VITAMIN D3 25 MCG (1,000 UNITS) TABLET PO SCH ×3 (08:18→20:42)
[2019-10-10] MEDS: lisINopril 40 MG (PRINIVIL) TABLET PO SCH (08:22)
[2019-10-10] MEDS: polyethylene glycoL POWDER 17 GM (MIRALAX) PACK PO SCH ×2 (08:24→20:48)
--- NOTE | 2019-10-10 08:52 | PM&R Post Admission Assessment ---
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 Not a tPA candidate. Patient lives alone and her 2 daughters are involved in her care. 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 Patient is making progress on the movement of the left side and will require aggressive therapy management. BM not moving. Patient is a poor historian and it appears this is a chronic issue exacerbated by the CVA. Previous med-surg note: CC: Left sided weakness HPI: This is a 64yoWF clinic patient of [facility] who presented to the ER 1 days after left sided weakness that apparently got worse the following day requiring EMS call. Patient was placed on stroke protocol and had no evidence of any confirmation of CVA so she was admitted for HTN encephalopathy. Patient reports that she can't really move her left side at all and she is a poor historian. PT attempted to work with her today and she could not participate. MRI and Carotid USG reviewed after rounds and confirmed the CVA as below: MRI today: Impression: 1: There is interval development of an acute lacunar cerebral infarct involving the posterior limb of the right internal capsule/right thalamic region. 2: Interval development of small acute infarct involving the medial posterior left temporal lobe and left occipital lobe. 3: Interval development of a focal area of possible subacute infarct involving the high left parietal parasagittal region. Dr Diaz has been gracious enough to provide consultation services. Past Lolltkz-Xfaiko-Afksuj Hx Past Med/Social Hx: Reviewed Nursing Past Med/Soc Hx, Reviewed and Corrections made Patient Social History Marrital Status: single Employed/Student: retired Alcohol Use: Denies Use Number of Drinks Today: AA Recreational Drug Use: No Smoking Status: Current Everyday Smoker Type Used: Cigarettes 2nd Hand Smoke Exposure: Yes Physical Abuse Screen: No Sexual Abuse: No Recent Foreign Travel: No Contact w/other who traveled: No Recent Hopitalizations: Yes (CVA - 2018) Recent Infectious Disease Expo: No Immunizations Up To Date Tetanus Booster (TDap): More than 5yrs Pediatric: Yes Date of Pneumonia Vaccine: Jul 18, 2015 Date of Influenza Vaccine: Apr 17, 2019 Seasonal Allergies Seasonal Allergies: Yes Past Medical History Surgeries: Abdominal, Section, Ear Surgery, Hysterectomy, Oophorectomy, Tonsillectomy Currently Using CPAP: No Currently Using BIPAP: No Cardiac: Hypertension Neurological: Stroke (10/08/19), TIA : No Reproductive: Yes (UTERINE CANCER) Sexually Transmitted Disease: No HIV/AIDS: No Female Reproductive Disorders: Denies Genitourinary: Bladder Infection Gastrointestinal: Diverticulosis Musculoskeletal: Arthritis, Back Injury Endocrine: Hypothyroidsim, Diabetes, Non-Insulin dep Loss of Vision: Denies Hearing Impairment: Hard of Hearing Cancer: Uterine Did You Recieve Any Treatments: Yes What Type of Treatment Did You: Surgical Intervention Psychosocial: Anxiety, Depression History of Blood Disorders: No Adverse Reaction to Blood Guzman: No Family History Cancer 03 MOTHER (LIVER CANCER) Congestive heart failure 03 FATHER Family history: Asthma 03 FATHER 09 BROTHER Family history: Cardiovascular disease 03 FATHER Family history: Thyroid disorder 03 FATHER 09 BROTHER 09 BROTHER 09 BROTHER 09 BROTHER 09 SISTER 09 SISTER 09 SISTER 09 SISTER History of - respiratory disease 03 FATHER (COPD, ASTHMA, EMPHYSEMA) 09 BROTHER 09 BROTHER 09 BROTHER 09 BROTHER 09 SISTER 09 SISTER 09 SISTER 09 SISTER Asthma, Heart Disease, Cancer, COPD, Diabetes Prior Level of Function Bed Mobility: 6 Transfers: 6 Gait: 6 Stairs: 6 Indoor Mobility (Ambulation): Independent Stairs: Independent pt. has a SPC which she uses periodically. Drive Self: No Current Level of Fuctioning Roll Left to Right: 4 Sit to Lyin Lying to Sitting/Side of Bed: 3 Sit to Stand: 3 Chair/Rxf-tl-Lswjt Xfer: 1 Car Transfer: 88 Does the Patient Walk: Yes Mode of Locomotion: Walk Anticipated Mode of Locomotion: Walk Walk 10 feet: 88 Walk 50 ft with 2 Turns: 88 Walk 150 ft: 88 Walking 10ft on uneven surface: 88 Gait Assistive Device: FWW Does the Pt Use a Wheelchair: No Wheel 50 ft with 2 turns: 09 Wheel 150 ft: 09 1 Step (curb): 88 4 Steps: 88 12 Steps: 88 Picking up an Object: 88 Eatin (Pt able to feed self after set up using right UE) Oral Hygiene: 7 (Pt refused to complete during session) Shower/Bathe Self: 2 (To shower room via shower chair. Pt able to wash left UE, chest, and abdomen. Attempts to wash right UE and yudelka area, but requires assist to complete thorough hygiene. Assist required for lower body bathing. Pt leans to left and requires cues for placement of left UE during bathing tasks.) Upper Body Dressin (pt wearing hospital gown) Lower Body Dressin (Pt requires total assist to thread LE into depends. Assist x2 for safety to stand and complete pant hike. Pt leans to left in standing) On/Off Footwear: 1 (total assist to doff/don socks) Toileting Hygiene: 1 (Pt incontinent of urine. Requires total assist to complete hygiene.) PM&R Allergy/Meds/Data Review Allergies Coded Allergies: Psefraf-Qdx-Bhu Reductase Inhibitor (Verified Allergy, Unknown, 10/09/19) muscle pain meperidine (Verified Allergy, Unknown, 08/16/13) Home Medications Scheduled Aspirin (Aspirin EC), 81 MG PO HS, (Reported) Cholecalciferol (Vitamin D3) (Vitamin D3), 25 MCG PO TID, (Reported) Citalopram Hydrobromide (Celexa), 40 MG PO DAILY, (Reported) Hydrochlorothiazide (Hydrochlorothiazide), 25 MG PO DAILY, (Reported) Levothyroxine Sodium (Levothyroxine Sodium), 175 MCG PO DAILY, (Reported) Lisinopril (Lisinopril), 40 MG PO DAILY, (Reported) Metformin HCl (Metformin HCl), 1,000 MG PO BID WITH MEALS, (Reported) Multivitamin (Multivitamins), 1 TAB PO HS, (Reported) [place] 3 Polyunsat Fatty Acids (Fish Oil 1,000 mg Capsule), 1,000 MG PO DAILY, (Reported) Pioglitazone HCl (Pioglitazone HCl), 30 MG PO DAILY, (Reported) Scheduled PRN Albuterol Sulfate (Proventil Hfa), 2 PUFF INH Q6H PRN for SHORTNESS OF BREATH, (Reported) Ibuprofen (Ibuprofen), 400 MG PO Q6H PRN for PAIN-MILD (1-4), (Reported) Discontinued Medications Atorvastatin Calcium (Lipitor), 40 MG PO HS Discontinued Reason: No Longer Taking Cholecalciferol (Vitamin D3) (Vitamin D3), 1,000 UNIT PO TID, (Reported) Discontinued Reason: Prescription changed Clopidogrel Bisulfate (Clopidogrel), 75 MG PO DAILY Discontinued Reason: No Longer Taking Current Medications Current Medications Reviewed Laboratory Data Laboratory Tests 10/09/19 17:01: Glucometer 188H 10/10/19 05:33: White Blood Count 13.4H, Red Blood Count 4.65, Hemoglobin 13.7, Hematocrit 41, Mean Corpuscular Volume 88, Mean Corpuscular Hemoglobin 30, Mean Corpuscular Hemoglobin Concent 34, Red Cell Distribution Width 14.5, Platelet Count 346, Mean Platelet Volume 10.5H, Neutrophils (%) (Auto) 74, Lymphocytes (%) (Auto) 16, Monocytes (%) (Auto) 8, Eosinophils (%) (Auto) 2, Basophils (%) (Auto) 0, Neutrophils # (Auto) 9.9H, Lymphocytes # (Auto) 2.2, Monocytes # (Auto) 1.1H, Eosinophils # (Auto) 0.2, Basophils # (Auto) 0.1, Sodium Level 128L, Potassium Level 4.3, Chloride Level 92L, Carbon Dioxide Level 24, Anion Gap 12, Blood Urea Nitrogen 9, Creatinine 0.70, Estimat Glomerular Filtration Rate > 60, BU N/Creatinine Ratio 13, Glucose Level 176H, Calcium Level 9.1, Corrected Calcium 9.1, Total Bilirubin 0.4, Aspartate Amino Transf (AST/SGOT) 24, Alanine Aminotransferase (ALT/SGPT) 18, Alkaline Phosphatase 79, Total Protein 6.5, Albumin 4.0 Review of Systems Constitutional: see HPI, weakness Psychiatric/Neurological: Anxiety, Depressed, Weakness (left sided) Physical Exam Physical Exam Vital Signs Vital Signs - First Documented 10/09/19 10/09/19 10/09/19 12:41 17:25 18:10 Temp 35.9 Pulse 81 Resp 20 B/P (MAP) 153/90 (111) Pulse Ox 92 O2 Delivery Nasal Cannula O2 Flow Rate 2.00 FiO2 28 Capillary Refill : Less Than 3 Seconds Height, Weight, BMI Height: 5'2.00" Weight: 234lbs. 4.0oz. 106.383355gw; 44.98 BMI Method:Stated General Appearance: No Apparent Distress, WD/WN, Chronically ill, Obese Eyes: Bilateral Eye Normal Inspection, Bilateral Eye PERRL HEENT: PERRL/EOMI, Normal ENT Inspection, Pharynx Normal Neck: Full Range of Motion, Normal Inspection, Non Tender, Supple, Carotid Bruit Respiratory: Chest Non Tender, Lungs Clear, Normal Breath Sounds, No Accessory Muscle Use, No Respiratory Distress, Decreased Breath Sounds Cardiovascular: Regular Rate, Rhythm, No Edema, No Gallop, No JVD, No Murmur, Normal Peripheral Pulses Gastrointestinal: Normal Bowel Sounds, No Organomegaly, No Pulsatile Mass, Non Tender, Soft Back: Normal Inspection, No CVA Tenderness, No Vertebral Tenderness Extremity: Normal Capillary Refill, Normal Inspection, Normal Range of Motion, Non Tender, No Calf Tenderness, No Pedal Edema Neurologic/Psychiatric: Alert, Oriented x3, No Motor/Sensory Deficits (except left arm and left leg 2-3/5), Normal Mood/Affect, district medical examiner II-XII Norm as Tested Skin: Normal Color, Warm/Dry Lymphatic: No Adenopathy PM&R Medical Assessment & Plan REHAB/MEDICAL ASSESSMENT AND PLAN: REHAB IMPAIRMENT GROUP: CVA ETIOLOGIC DIAGNOSIS: CVA The comorbidities that impact the patients function and/or functional outcome by: smoker, obesity, DM, HTN, Lives alone, poor historian REHAB PLAN: The patient is being admitted to our comprehensive inpatient rehabilitation facility and can tolerate the intensity of service consisting of at least: 180 minutes of therapy a day, 5 out of 7 days a week Rehab treatment will consist of: PT OT ST will focus on regaining as much function as possible in order to ultimately return to independent living The patient/family has a good understanding of our discharge process and will benefit from an interdisciplinary inpatient rehabilitation program. The patient has potential to make improvement and is in need of at least two of the following multidisciplinary therapies including but not limited to physical, occupational, speech, and prosthetics and orthotics. Additionally the patient will need services from respiratory, nutritional services, wound care, psychology, etc. (Customize this to each patient). Given the patients complex condition and risk of further medical complications, rehabilitation services cannot be safely or effectively provided at a lower level of care such as a chcf facility. BARRIERS TO DISCHARGE: Lives alone and 2 daughters involved in her care ESTIMATED LOS: 10 days DISPOSITION: Home RELEVANT CHANGES SINCE PREADMISSION SCREENING: I have compared the patients medical and functional status at the time of the preadmission screening and there are: no changes PROGNOSIS: Good REHABILITATION GOALS: 1. PT OT ST will focus on regaining as much function as possible in order to ultimately return to independent living from catastrophic CVA All the above goals were reviewed with the patient and he/she is in agreement. By signing this document, I acknowledge that I have personally performed a full physical examination on this patient within 24 hours of admission to this inpatient rehabilitation facility and have determined the patient to be able to tolerate the above course of treatment at an intensive level for a reasonable period of time. I will be completing a detailed individualized Plan of Care for this patient by day #4 of the patients stay based upon the Preadmission Screen, the Post-Admission Evaluation, and the therapy evaluations. Admission Dx/Comorbidities: (1) CVA (cerebral vascular accident) ICD Codes: I63.9 - Cerebral infarction, unspecified (2) Left-sided weakness ICD Codes: R53.1 - Weakness (3) Tobacco abuse Status: Chronic ICD Codes: Z72.0 - Tobacco use (4) Stroke Status: Acute ICD Codes: I63.9 - Cerebral infarction, unspecified (5) DVT prophylaxis Status: Acute ICD Codes: Z29.9 - Encounter for prophylactic measures, unspecified (6) COPD (chronic obstructive pulmonary disease) ICD Codes: J44.9 - Chronic obstructive pulmonary disease, unspecified (7) Diabetes ICD Codes: E11.9 - Type 2 diabetes mellitus without complications (8) Hyperlipemia ICD Codes: E78.5 - Hyperlipidemia, unspecified (9) Hypertension ICD Codes: I10 - Essential (primary) hypertension (10) Leukocytosis Status: Acute (11) Hyponatremia Status: Acute (12) Smoker ICD Codes: F17.200 - Nicotine dependence, unspecified, uncomplicated SUNNY ANDERSON DO Oct 10, 2019 08:52
[2019-10-10] MEDS ORDERED: LEVOTHYROXINE 75 MCG (LEVOTHROID) TABLET PO SCH (09:00)
[2019-10-10] MEDS ORDERED: LEVOTHYROXINE 100 MCG (LEVOTHROID) TAB PO SCH (09:00)
[2019-10-10] MEDS ORDERED: HYDROCHLOROTHIAZIDE 25 MG (HCTZ) TAB PO SCH (09:00)
[2019-10-10] MEDS: HYDROcodone/APAP 5 MG/325 MG (LORTAB) TAB PO PRN ×2 (09:11→22:51)
--- NOTE | 2019-10-10 09:18 | Physical Therapy Daily Note ---
PT Daily Note-Current Subjective Pt. in bed and states her left arm and shoulder are in pain at 10/10. Pt. states she had 2 falls yesterday and has increased pain in left shoulder as a result. Pt. also shares that she has a history of ear and vestibular problems and is mixed up on where she is in space alot. "Please give me clear directions for every move we make and I will do much better" Pain Numeric Pain Scale: 10-Worst Possible Pain Location: Left Location Body Site: Shoulder Pain Description: Stabbing Appearance pt. smells of cigarette smoke, likely her breath from past Mental Status Patient Orientation: Normal For Age Attachments: Oxygen Transfers SCALE: Activities may be completed with or without assistive devices. 6-Bpjdbpzxwp-uvggrci completes the activity by him/herself with no assistance from a helper. 5-Set-up or Clean-up Assistance-helper sets up or cleans up; patient completes activity. [place] assists only prior to or following the activity. 4-Supervision or Touching Assistance-helper provides verbal cues and/or touching/steadying and/or contact guard assistance as patient completes activity. Assistance may be provided throughout the activity or intermittently. 3-Partial/Moderate Assistance-helper does LESS THAN HALF the effort. [place] lifts, holds or supports trunk or limbs, but provides less than half the effort. 2-Substantial/Maximal Assistance-helper does MORE THAN HALF the effort. [place] lifts or holds trunk or limbs and provides more than half the effort. 7-Qjhujwpsh-rqpsyk does ALL the effort. Patient does none of the effort to complete the activity. Or, the assistance of 2 or more helpers is required for the patient to complete the activity. If activity was not attempted, code reason: 7-Patient Refused. 9-Not Applicable-not attempted and the patient did not perform the activity before the current illness, exacerbation or injury. 10-Not Attempted due to Environmental Limitations-(lack of equipment, weather restraints, etc.). 88-Not Attempted due to Medical Conditions or Safety Concerns. Roll Left & Right (QC): 3 Lying to Sitting/Side of Bed(Q: 4 (with head of bed up) Sit to Stand (QC): 2 Chair/Dkp-og-Splwe Xfer(QC): 2 Toilet Transfer (QC): 2 pt. does all SPTs with mod assist of 2 and clear direction for extending left knee as well as tactile direction with therapists knee/leg to facilitate knee extension. Pt. instructed where to look and what the goal is and where to reach with right hand as well as a demonstration before the TRF . Weight Bearing Right Lower Extremity: Right Full Weight Bearing Left Lower Extremity: Left Full Weight Bearing Gait Training Does the Patient Walk?: Yes Gait Assistive Device: Handheld Assist side steps to right and a few steps forward , approx 4 steps x 5 with tactile cuing and instruction the whole way Exercises Supine Ex: Bridging, Ankle pumps, Quad Set, Rolling, Glut sets, Heel Slides (assisted), Scooting (pushed self up in bed with some instruction), Hip abd/add (assisted) Supine Reps: 10 (x2) Treatments toileted with max assist for clean up and pants up and down Assessment Current Status: Good Progress gives full effort, needs clear precise instruction and details then does very well, progress noted if handled giving her time, assisting with left knee extension and good explanation PT Nursing Home Goals Facilities Clerk Goals PT Nursing Home Goals Time Frame: Oct 30, 2019 Roll Left & Right (QC): 6 Sit to Lying (QC): 6 Lying-Sitting on Side/Bed(QC): 6 Sit to Stand (QC): 6 Chair/Nro-it-Rcmsx Xfer(QC): 6 Toilet Transfer (QC): 6 Car Transfer (QC): 6 Does the Patient Walk: Yes Walk 10 feet (QC): 6 Walk 50ft with 2 Turns (QC): 6 Walk 150 ft (QC): 6 Walking 10ft on Uneven Surface: 6 1 Step (curb) (QC): 6 4 Steps (QC): 6 12 Steps (QC): 6 Picking up an Object (QC): 6 Does the Pt use WC or Scooter?: No Wheel 50 feet with 2 turns (QC: 09 Wheel 150 feet: 09 PT Plan Treatment/Plan Treatment Plan: Continue Plan of Care Treatment Plan: Bed Mobility, Concurrent Therapy, Education, Functional Activity Marjorie, Functional Strength, Group Therapy, Gait, Safety, Therapeutic Exercise, Transfers Treatment Duration: Oct 30, 2019 Frequency: 6 times per week Estimated Hrs Per Day: 1.5 hours per day Patient and/or Family Agrees t: Yes Safety Risks/Education Patient Education: Gait Training, Transfer Techniques, Correct Positioning, Disease Process, Safety Issues Teaching Recipient: Patient Teaching Methods: Demonstration, Discussion Response to Teaching: Verbalize Understanding, Return Demonstration, Reinforcement Needed pt. needs much instruction and direction as well as educated about what to expect after CVA and what it actually is to experience brain ischemia etc Time/GCodes Time In: 800 Time Out: 900 Total Billed Treatment Time: 60 Total Billed Treatment 1,FA40m,EX20m ELISABETH PARRA SUSTAINABLE SYSTEMS ANALYST Oct 10, 2019 09:18
--- NOTE | 2019-10-10 10:10 | Occupational Ther Daily Note ---
OT Current Status-Daily Note Subjective Pt sitting in chair, agrees to treatment. Pt reports 8/10 pain in left shoulder. Mental Status/Objective Attachments: Oxygen ADL-Treatment Pt completed sponge bath while seated in chair. Pt able to wash chest, abdomen, and left UE using right hand. Pt uses left UE to wash right arm with increased time for movement and decreased coordination. Pt states she was just up to [facility] and new Depends were donned and don't need to be changed at this time. Assist to wash upper/lower legs. Pt does not have any clothes available, so donned clean hospital gown with assist. Pt total assist to doff/don socks. Pt combed hair with set up and increased time, but required assist to put hair up in ponytail per request. Pt able to open toothpaste and place on toothbrush. Pt then c ompleted oral care using right UE. Pt requires increased time for ADL tasks. Pt has slow movement of right UE, but attempts to use functionally throughout treatment. Therapy Code Descriptions/Definitions Functional Ben[place] Measure: 0=Not Assessed/NA 4=Minimal Assistance 1=Total Assistance 5=Supervision or Setup 2=Maximal Assistance 6=Modified [place] 3=Moderate Assistance 7=Complete IndependenceSCALE: Activities may be completed with or without assistive devices. 1-Dmyfehmlcu-hndfaka completes the activity by him/herself with no assistance from a helper. 5-Set-up or Clean-up Assistance-helper sets up or cleans up; patient completes activity. [place] assists only prior to or following the activity. 4-Supervision or Touching Assistance-helper provides verbal cues and/or to uching/steadying and/or contact guard assistance as patient completes activity. Assistance may be provided throughout the activity or intermittently. 3-Partial/Moderate Assistance-helper does LESS THAN HALF the effort. [place] lifts, holds or supports trunk or limbs, but provides less than half the effort. 2-Substantial/Maximal Assistance-helper does MORE THAN HALF the effort. [place] lifts or holds trunk or limbs and provides more than half the effort. 3-Xddpwfnwl-gbpzdb does ALL the effort. Patient does none of the effort to complete the activity. Or, the assistance of 2 or more helpers is required for the patient to complete the activity. If activity was not attempted, code reason: 7-Patient Refused. 9-Not Applicable-not attempted and the patient did not perform the activity before the current illness, exacerbation or injury. 10-Not Attempted due to Environmental Limitations-(lack of equipment, weather restraints, etc.). 88-Not Attempted due to Medical Conditions or Safety Concerns. Oral Hygiene (QC): 4 On/Off Footwear: 1 Other Treatment Pt completed resistance peg activity with left UE to increase coordination and active movement needed for functional task completion. Pt able to place 10 pegs into pegboard with increased time. Left hand bleach machine operator exercises completed with minimal resistance therapy foam x20 reps. Pt sitting in chair with needs met and chair alarm in place after session. OT Short Term Goals Short Term Goals Time Frame: Oct 16, 2019 Toileting hygiene: 2 Shower/bathe self: 3 Upper body dressin Lower body dressin OT Roller Coaster Operator Goals Roller Coaster Operator Goals Time Frame: Oct 30, 2019 Eating (QC): 6 Oral Hygiene (QC): 6 Toileting Hygiene (QC): 5 Shower/Bathe Self (QC): 5 Upper Body Dressing (QC): 6 Lower Body Dressing (QC): 5 On/Off Footwear (QC): 5 Additional Goals: 1-Demonstrate ADL Tasks, 2-Verbalize Understanding, 3-ImproveStrength/Marjorie 1=Demonstrate adherence to instructed precautions during ADL tasks. 2=Patient will verbalize/demonstrate understanding of assistive devices/modifications for ADL. 3=Patient will improve strength/tolerance for activity to enable patient to perform ADL's. OT Education/Plan Discharge Recommendations Plan/Recommendations: Continue POC Treatment Plan/Plan of Care Patient would benefit from OT for education, treatment and training to promote independence in ADL's, mobility, safety and/or upper extremity function for ADL's. Plan of Care: ADL Retraining, Functional Mobility, Group Exercise/Act as Ind, UE Funct Exercise/Act, UE Neuromus Re-Ed/Coord Treatment Duration: Oct 30, 2019 Frequency: At least 5 of 7 days/Wk (IRF) Estimated Hrs Per Day: 1.5 hours per day Rehab Potential: Fair Time/GCodes Start Time: 09:00 Stop Time: 10:00 Total Time Billed (hr/min): 60 Billed Treatment Time 1 visit, ADLx3(40minutes), FA(20minutes) SULEMAN CRUZ OT Oct 10, 2019 10:10
--- NOTE | 2019-10-10 10:38 | NUR ---
"RD ASSESSMENT PMHx: HTN; stroke; TIA; diverticulosis; DM; CA(uterine) PT INTERACTION: Pt was awake and pleasant during nutrition assessment. Note pt is a poor historian, per chart review. Pt states current appetite is okay, and has been for some time. Note avg PO intake of 75% x2meal, per chart review. Pt states trying to follow a low-CHO diet, and has some issues with chewing food. Pt states recent issues with nausea, but not vomiting. Pt states no recent issues with constipation or diarrhea, and that she thinks her last BM was 10/06. Note pt currently on bowel regimen of colace BID; senna BID; and miralax BID, per chart review. Pt states unsure of any recent wt changes. Note unable to determine recent wt hx, per chart review. ABNORMAL NUTRITION-RELATED LAB VALUES LOW: Na 128; Cl 92 HIGH: glu 176 Est. kcal needs: 8086-3726 kcal | 15-18 kcal/kg Est. Pro needs: 89-112 g Pro | 0.8-1.0 g Pro/kg PES STATEMENT: Given current PO intake, no nutrition diagnosis at this time (NO-1.1) INTERVENTION: Continue with current diet order of CHO 75g/m 0snack diet. Will continue to follow and reassess as pt needs, intake, and status change. MONITOR/EVALUATE: PO Intake; Plan of Care; Hydration Status; Weight Status; Lab Values Jayjay Ramsey, MS, RD, LD"
--- NOTE | 2019-10-10 10:59 | ST Cognitive Linguistic Eval ---
Speech Evaluation-General Medical Diagnosis CVA Onset Date: Oct 08, 2019 Therapy Diagnosis Therapy Diagnosis: Cognitive-communication Referral Referring Physician: Dr. Gutiérrez Medical History Pertinent Medical History: COPD, DM, HTN Reviewed History: Yes Social History Current Living Status: Alone Speech PLF-Current Status Prior Level of Function Patient lived home alone where she completed most of her daily needs independently. The patient has family support for shopping and doctor's appts. as needed. Subjective Patient was cooperative with the cognitive assessment. Patient is noted to have a flat affect at all times. Language Eval: Auditory Comprehends Simple Yes/No Ques: Functional Indent/Objects Multiple Driver: Functional Ident/Pics in Multiple Driver: Functional Follows 1-Step Commands: Functional Follows Complex Directions: Functional Follows General Conversations: Mild Language Eval: Verbal Language Completes Spontaneous Greeting: Functional Produces Auto, Serial Info: Functional Imitates Simple Words/Phrases: Mild Word Finding: Functional Requests Basic Needs: Functional States Basic Personal Info: Functional Expresses Complex Ideas: Mild Objective Cognitive Domain Attention: WNL Memory: Mild Problem Solving: Mild Executive Functions: Mild Visuospatial Skills: Mild Composite Severity Rating: Mild Clock Drawing Severity Rating: Mild Objective Formal/Standardized Tests [facility] Mental Status ([facility]) Results 18/30, moderate dementia level of function Oral Motor/Speech Production Grossly within normal limits Impression The patient is a 64 year old female who was admitted to the ARU s/p CVA. The patient states she had her first CVA last April with 90% resolve. The patient completed the SLUMS with a score of 18/30 which is within the moderate dementia range of function. Patient meets criteria for receiving ST services. Focus of ST will be on safety awareness and independence in order to return home safely. Speech Patient Assess Expression of Ideas/Wants: Exhibits (3) Understanding Verbal Content: Usually Understands (3) Brief Interview-Mental Status: Yes Repetition of Three Words: Three (3) Temporal Orientation: Year: Correct (3) Temporal Orientation: Month: Accurate within 5 days(2) Temporal Orientation: Day: Correct (1) Recall : Wear to say "Sock": Yes,after cueing (1) Recall : Color: Yes, after cueing (1) Recall : Bed: No, could not recall (0) Memory/Recall Ability: Current season, That he or she is in a hsp/hsp unit Speech Short Term Goals Short Term Goals Short Term Goals 1) Patient will complete memory tasks related to daily needs at 90% or greater with minimal cues. 2) Patient will complete safety awareness tasks related to daily needs at 90% or greater with minimal cues. 3) Patient will complete problem solving tasks related to daily needs at 90% or greater with minimal cues. Speech Usp Goals Computer Security Coordinator Goals Patient will improve cognitive-communication necessary for safety and daily living tasks with minimal assist. Speech-Plan Patient/Family Goals Patient/Family Goals: Patient plans on returning home upon rehab discharge. Treatment Plan Speech Therapy Treatment Plan: Continue Plan of Care Frequency: 5 times per week Estimated Hrs Per Day: .5 hour per day Rehab Potential: Fair Barriers to Learning: Patient has moderate cogitive deficits Pt/Family Agrees to Plan: Yes Safety Risks/Education Teaching Recipient: Patient Teaching Methods: Discussion Response to Teaching: Verbalize Understanding Education Topics Provided: Safety within her room and communication of wants/needs Time Speech Therapy Time In: 10:00 Speech Therapy Time Out: 10:15 Total Billed Time: 15 Billed Treatment Time 1ALEXEI BETHANIA ST Oct 10, 2019 10:58
--- NOTE | 2019-10-10 11:40 | Physical Therapy Daily Note ---
PT Daily Note-Current Subjective Pt. up in recliner and requests BSC then asks later to go to bed. Pain Numeric Pain Scale: 4 Location: Left Location Body Site: Shoulder Pain Description: Ache Mental Status Patient Orientation: Normal For Age Attachments: Oxygen (2L) Transfers SCALE: Activities may be completed with or without assistive devices. 0-Ubbxpoxnjc-lldigug completes the activity by him/herself with no assistance from a helper. 5-Set-up or Clean-up Assistance-helper sets up or cleans up; patient completes activity. [place] assists only prior to or following the activity. 4-Supervision or Touching Assistance-helper provides verbal cues and/or touching/steadying and/or contact guard assistance as patient completes activity. Assistance may be provided throughout the activity or intermittently. 3-Partial/Moderate Assistance-helper does LESS THAN HALF the effort. [place] lifts, holds or supports trunk or limbs, but provides less than half the effort. 2-Substantial/Maximal Assistance-helper does MORE THAN HALF the effort. [place] lifts or holds trunk or limbs and provides more than half the effort. 5-Buadmhavn-nyhwuc does ALL the effort. Patient does none of the effort to complete the activity. Or, the assistance of 2 or more helpers is required for the patient to complete the activity. If activity was not attempted, code reason: 7-Patient Refused. 9-Not Applicable-not attempted and the patient did not perform the activity before the current illness, exacerbation or injury. 10-Not Attempted due to Environmental Limitations-(lack of equipment, weather restraints, etc.). 88-Not Attempted due to Medical Conditions or Safety Concerns. Roll Left & Right (QC): 4 sit to stands and SPT mod assist of 2 and specific detailed instruction for each step. pt. stood from recliner SPT to BSC with max assist for pants down then cleaning and pants up. After back in recliner pt. then stated she wanted back in bed. recliner and BSC all turned so that pt. transferred to the right and required assist to stabilize her left arm as well as her left knee into extension as cues and instruction given. Pts recliner was then turned to allow TRF to the right in to the bed. Pt. did TRF in to bed with only mod to min assist. Weight Bearing Right Lower Extremity: Right Full Weight Bearing Left Lower Extremity: Left Full Weight Bearing Exercises Seated Therapy Exercises: Ankle pumps, Sit to stand, Long arc quads Seated Reps: 12 Assessment Current Status: Good Progress PT Longterm Goals Anatomy Teacher Goals PT Longterm Goals Time Frame: Oct 30, 2019 Roll Left & Right (QC): 6 Sit to Lying (QC): 6 Lying-Sitting on Side/Bed(QC): 6 Sit to Stand (QC): 6 Chair/Dec-rk-Pofse Xfer(QC): 6 Toilet Transfer (QC): 6 Car Transfer (QC): 6 Does the Patient Walk: Yes Walk 10 feet (QC): 6 Walk 50ft with 2 Turns (QC): 6 Walk 150 ft (QC): 6 Walking 10ft on Uneven Surface: 6 1 Step (curb) (QC): 6 4 Steps (QC): 6 12 Steps (QC): 6 Picking up an Object (QC): 6 Does the Pt use WC or Scooter?: No Wheel 50 feet with 2 turns (QC: 09 Wheel 150 feet: 09 PT Plan Treatment/Plan Treatment Plan: Continue Plan of Care Treatment Plan: Bed Mobility, Concurrent Therapy, Education, Functional Activity Marjorie, Functional Strength, Group Therapy, Gait, Safety, Therapeutic Exercise, Transfers Treatment Duration: Oct 30, 2019 Frequency: 6 times per week Estimated Hrs Per Day: 1.5 hours per day Patient and/or Family Agrees t: Yes Safety Risks/Education Patient Education: Transfer Techniques, Disease Process, Safety Issues Teaching Recipient: Patient Teaching Methods: Demonstration, Discussion Response to Teaching: Verbalize Understanding, Return Demonstration, Reinforcement Needed Time/GCodes Time In: 1100 Time Out: 1130 Total Billed Treatment Time: 30 Total Billed Treatment 1,FA30m ELISABETH PARRA QUALITY ASSURANCE PROJECT MANAGER Oct 10, 2019 11:40
--- NOTE | 2019-10-10 12:37 | Occupational Ther Daily Note ---
OT Current Status-Daily Note Subjective Pt alert, lying in bed. Pt stated that she didn't want to move. GUTIERREZ encouraged pt and pt agrees to therapy. Pt c/o pain in L shldr with movement. C/o nausea, but stated the medicine for nausea makes her nauseous. Mental Status/Objective Patient Orientation: Person, Place, Situation ADL-Treatment Therapy Code Descriptions/Definitions Functional Emmons Measure: 0=Not Assessed/NA 4=Minimal Assistance 1=Total Assistance 5=Supervision or Setup 2=Maximal Assistance 6=Modified Emmons 3=Moderate Assistance 7=Complete IndependenceSCALE: Activities may be completed with or without assistive devices. 7-Ysztantprw-onsiyba completes the activity by him/herself with no assistance from a helper. 5-Set-up or Clean-up Assistance-helper sets up or cleans up; patient completes activity. [place] assists only prior to or following the activity. 4-Supervision or Touching Assistance-helper provides verbal cues and/or touc roberto/steadying and/or contact guard assistance as patient completes activity. Assistance may be provided throughout the activity or intermittently. 3-Partial/Moderate Assistance-helper does LESS THAN HALF the effort. [place] lifts, holds or supports trunk or limbs, but provides less than half the effort. 2-Substantial/Maximal Assistance-helper does MORE THAN HALF the effort. [place] lifts or holds trunk or limbs and provides more than half the effort. 0-Tmcomonno-ivaskh does ALL the effort. Patient does none of the effort to complete the activity. Or, the assistance of 2 or more helpers is required for the patient to complete the activity. If activity was not attempted, code reason: 7-Patient Refused. 9-Not Applicable-not attempted and the patient did not perform the activity before the current illness, exacerbation or injury. 10-Not Attempted due to Environmental Limitations-(lack of equipment, weather restraints, etc.). 88-Not Attempted due to Medical Conditions or Safety Concerns. Eating (QC): 6 Other Treatment Pt demonstrated increased movement in L UE. With gravity eliminated, pt was able to complete 10 elbow flex/ext exercises with minimal pain. Pt demonstrated wrist flex/ext 10 x without pain. Pt open/closed hand 15x's without pain. Pt completed shldr retraction/protraction 10x's with AAROM without pain. Pt then received lunch and was able to open containers then use regular utensils to eat. After session, pt lying in bed with call light/phone in reach. All needs met in room. OT Short Term Goals Short Term Goals Time Frame: Oct 16, 2019 Toileting hygiene: 2 Shower/bathe self: 3 Upper body dressin Lower body dressin OT Childhood Teacher Goals Half-Way Goals Time Frame: Oct 30, 2019 Eating (QC): 6 Oral Hygiene (QC): 6 Toileting Hygiene (QC): 5 Shower/Bathe Self (QC): 5 Upper Body Dressing (QC): 6 Lower Body Dressing (QC): 5 On/Off Footwear (QC): 5 Additional Goals: 1-Demonstrate ADL Tasks, 2-Verbalize Understanding, 3- ImproveStrength/Marjorie 1=Demonstrate adherence to instructed precautions during ADL tasks. 2=Patient will verbalize/demonstrate understanding of assistive devices/modifications for ADL. 3=Patient will improve strength/tolerance for activity to enable patient to perform ADL's. OT Education/Plan Problem List/Assessment Assessment: Decreased Activ Tolerance, Decreased Safety Aware, Decreased UE Strength, Impaired Cognition, Impaired Coordination, Impaired Funct Balance, Impaired Self-Care Skills, Restricted Funct UE ROM Discharge Recommendations Plan/Recommendations: Continue POC Treatment Plan/Plan of Care Patient would benefit from OT for education, treatment and training to promote independence in ADL's, mobility, safety and/or upper extremity function for ADL's. Plan of Care: ADL Retraining, Functional Mobility, Group Exercise/Act as Ind, UE Funct Exercise/Act, UE Neuromus Re-Ed/Coord Treatment Duration: Oct 30, 2019 Frequency: At least 5 of 7 days/Wk (IRF) Estimated Hrs Per Day: 1.5 hours per day Rehab Potential: Fair Time/GCodes Start Time: 11:30 Stop Time: 12:00 Total Time Billed (hr/min): 30 Billed Treatment Time 1 visit-NM 1 (20 min) ADL 1 (10 min) RIANNA ESPITIA Oct 10, 2019 12:37
--- NOTE | 2019-10-10 17:03 | Individualized Plan of Care ---
Individualized Plan of Care Rehab Nursing IPOC Order Admission Date Oct 09, 2019 at 12:21 Current Orders Orders Admission Order(Inpt,Obs,Sdc) (10/09/19 11:15) Vital Signs: Per Unit Policy ( 08,16,00 (10/09/19 11:15) Klaus Cruz , (10/09/19 11:15) Sequential Compression Device Q4H (10/09/19 11:15) Circus Trainer-Inpt Rehab Con (10/09/19 11:15) Rehab Nursing Orders-Ipoc (10/09/19 11:15) Physical Therapy Rehab Orders (10/09/19 11:15) Occupational Therapy Rehab Ord (10/09/19 11:15) Speech Therapy Rehab Orders (10/09/19 11:15) Cbc With Automated Diff (10/10/19 06:00) Comprehensive Metabolic Panel (10/10/19 06:00) Intake & Output 06,14,22 (10/09/19 11:15) Precautions (Aru) (10/09/19 11:15) Weekly Weight WEEK (10/09/19 11:15) Rehab-Intensity Of Therapy (10/09/19 11:15) Initiate Admission Nursing Pro .admission (10/09/19 11:15) Acetaminophen Tablet (Tylenol Tablet) (10/09/19 11:15) Alprazolam Tablet (Xanax Tablet) (10/09/19 11:15) Calcium Carbonate Chew Tablet (Antacid C (10/09/19 11:15) Diphenhydramine Tablet (Benadryl Tablet) (10/09/19 11:15) Docusate Sodium Capsule (Colace Capsule) (10/09/19 21:00) Docusate Sodium Capsule (Colace Capsule) (10/09/19 11:15) Bisacodyl Suppository (Dulcolax Supposit (10/09/19 11:15) Lactulose Oral Solution (Enulose Oral So (10/09/19 11:15) Na Phos/Na Biphos Enema (Fleet Enema Rene (10/09/19 11:15) Guaifenesin/Codeine Syrup (Robitussin Ac (10/09/19 11:15) Hydrocodone/Apap 5/325 Tablet (Lortab 5 (10/09/19 11:15) Loperamide Tablet (Imodium Tablet) (10/09/19 11:15) Enoxaparin Injection (Lovenox Injection) (10/09/19 21:00) Melatonin Tablet (Melatonin Tablet) (10/09/19 11:15) Polyethylene Glycol Powder Pkt (Miralax (10/09/19 21:00) Ondansetron Oral Dissolve Tab (Zofran (10/09/19 11:15) Senna S Tablet (Senokot S Tablet) (10/09/19 21:00) Initiate Admission Nursing Pro .admission (10/09/19 11:15) Cho 75g/M 0snack (21-2400 Anival) (10/09/19 Dinner) Telemetry (10/09/19 12:38) Telemetry Nursing Assessment ( (10/09/19 12:38) Incentive Spirometry (Nursing) Q2H (10/09/19 12:38) Albuterol/Ipra Inhalation Soln (Duoneb I (10/09/19 14:00) Svn Small Volume Nebulizer (10/09/19 12:38) Clopidogrel Tablet (Plavix Tablet) (10/10/19 09:00) Accucheck Achs ACHS (10/09/19 12:38) Insulin Aspart (Novolog) (Novolog (Charg (10/09/19 16:00) Aspirin Enteric Coated Tablet (Ecotrin T (10/09/19 21:00) Hydrochlorothiazide Cap/Tablet (Hctz Cap (10/10/19 09:00) Ibuprofen Tablet (Motrin Tablet) (10/09/19 12:45) Lisinopril Tablet (Zestril Tablet) (10/10/19 09:00) Therapeutic Multivitamin Tab (Vitamins, (10/09/19 21:00) Charlton 3 Capsule (Fish Oil Capsule) (10/10/19 09:00) Pioglitazone Tablet (Actos Tablet) (10/10/19 09:00) Cholecalciferol Capsule/Tablet (Vitamin (10/09/19 13:00) Citalopram Tablet (Celexa Tablet) (10/10/19 09:00) Levothyroxine Tablet (Synthroid Tablet) (10/10/19 09:00) Levothyroxine Tablet (Synthroid Tablet) (10/10/19 09:00) Metformin Tablet (Glucophage Tablet) (10/10/19 07:00) Patient Visit (10/09/19 ) Pt Eval High Complexity (10/09/19 ) Functional Activities, Ea 15 (10/09/19 ) Albuterol/Ipra Inhalation Soln (Duoneb I (10/09/19 19:00) Mat Initiate Protocol (10/09/19 17:29) Fluid Restriction (10/10/19 09:01) Patient Visit (10/10/19 ) Speech Sound Lang Comp (10/10/19 ) Patient Visit (10/10/19 ) Functional Activities, Ea 15 (10/10/19 ) Exercise Therap, Ea 15 Min (10/10/19 ) Levothyroxine Tablet (Synthroid Tablet) (10/11/19 06:00) Levothyroxine Tablet (Synthroid Tablet) (10/11/19 06:00) Rehab Nursing Orders: Ongoing Assess. of Cognitive Status, Ongoing Assess. of Function Status, Bladder Management, Bladder Scan, Bladder Training, Bowel Management, Bowel Training, Disease Management & Educaiton, DVT Prophylaxis, Fall Prevention, Fluid/Electrolyte/Nutrition Mgmt, Infection Prevention, Medication Management & Education, Management of Risks & Complications, Management of Skin Intergrity, Nutrition Management, Pain Management, Patient/Family Support, Safety Management Intensity of Therapy to be met Patient to be seen: Min.3h per day/5 of 7d PT IPOC Problem List: Activity Tolerance, Functional Strength, Safety, Balance, Gait, Transfer, Bed Mobility, ROM Treatment Plan: Continue Plan of Care Bed Mobility, Concurrent Therapy, Education, Functional Activity Marjorie, Function al Strength, Group Therapy, Gait, Safety, Therapeutic Exercise, Transfers Treatment Duration: Oct 30, 2019 Frequency: 6 times per week Estimated Hrs Per Day: 1.5 hours per day OT IPOC Problems: Decreased Activ Tolerance, Decreased Safety Aware, Decreased UE Strength, Impaired Cognition, Impaired Coordination, Impaired Funct Balance, Impaired Self-Care Skills, Restricted Funct UE ROM OT Treatment, Training and Edu: Yes Plan of Care: ADL Retraining, Functional Mobility, Group Exercise/Act as Ind, UE Funct Exercise/Act, UE Neuromus Re-Ed/Coord Treatment Duration: Oct 30, 2019 Frequency: At least 5 of 7 days/Wk (IRF) Estimated Hrs Per Day: 1.5 hours per day IPOC Speech Therapy Treatment Plan: Continue Plan of Care Treatment Duration: Oct 10, 2019 Frequency: 5 times per week Estimated Hrs Per Day: .5 hour per day Circus Trainer/Case Mgmt Circus Trainer/Case Managemen: Discharge Planning Dietitian/Manager Strategy Dietitian/Manager Strategy to monitor nutritional status and make changes and/or recommendations as needed and work with speech pathology on dietary upgrades as the occur. Physician IPOC Medical Issues being managed closely and that require the 24 hour availability of a physician: Recent catastrophic CVA with left sided weakness and major fall risk and remains on Tely due to cryptogenic CVA source Medical Issues: Bowel/Bladder Function, DVT Prophylaxis, Falls Precautions, Fluid/Electrolyte/Nutrition Balance, Infection Protection, Pain Management Brief Synthesis of Preadmission Screen, Post-Admission Evaluation, and Therapy Evaluations: ST will work on slow cognitive processing acute on chronic from CVA 05/05 and this CVA and PT and OT will focus on increasing strength of left side Medical Prognosis: Good Anticipated Length of Stay: 10 days SUNNY ANDERSON DO Oct 10, 2019 17:03
[2019-10-10] MEDS ORDERED: DICLOFENAC 1% GEL 100 GM (VOLTAREN) TUBE TOP PRN (17:15)
[2019-10-10 17:45] VITALS: BP 150/80
--- NOTE | 2019-10-10 19:08 | NUR ---
bedside report received from CHRISTIAN ALEMAN, assume care of pt
[2019-10-10] MEDS: MULTIVIT W/MINERALS TAB (THERAGRAN M) PO SCH (20:42)
[2019-10-10] MEDS: ASPIRIN E.C. 81 MG (ECOTRIN) TAB PO SCH (20:42)
--- NOTE | 2019-10-10 20:42 | NUR ---
tried to encourage pt to take laxatives as has not had stool since 10/08/19, states you can try but i will not take it, refused Colace, miralax & Senokot, c/o lt shoulder pain, level 4/10 on numeric scale, Voltaren gel 4 grams applied
--- NOTE | 2019-10-10 21:00 | NUR ---
fsbs [id number]
--- NOTE | 2019-10-10 21:45 | NUR ---
resting quietly in bed, pain level 0/10 on CNPI scale
--- NOTE | 2019-10-10 22:51 | NUR ---
c/o pain to lt shoulder, pain level 10/10 on numeric scale, Lortab 5 1 tab given
[2019-10-11 05:55] VITALS: BP 164/88
[2019-10-11] MEDS: metFORMIN 500 MG (GLUCOPHAGE) TAB PO SCH (06:22)
[2019-10-11] MEDS: LEVOTHYROXINE 75 MCG (LEVOTHROID) TABLET PO SCH (06:22)
[2019-10-11] MEDS: LEVOTHYROXINE 100 MCG (LEVOTHROID) TAB PO SCH (06:22)
[2019-10-11] MEDS: inSUlin ASPART (NovoLOG) 1 UNIT/0.01 ML (CHARGE PER UNIT) SC SCH ×4 (06:24→20:56)
[2019-10-11] MEDS: RT-ALBUTEROL/IPRATROPIUM 3 ML (DUONEB) VIAL INH SCH ×3 (07:21→14:56)
[2019-10-11] MEDS: HYDROcodone/APAP 5 MG/325 MG (LORTAB) TAB PO PRN (08:44)
[2019-10-11] MEDS: VITAMIN D3 25 MCG (1,000 UNITS) TABLET PO SCH ×3 (08:45→21:15)
[2019-10-11] MEDS: CLOPIDOGREL 75 MG (PLAVIX) TABLET PO SCH (08:45)
[2019-10-11] MEDS: DOCUSATE SODIUM 100 MG (COLACE) CAP PO SCH ×2 (08:45→21:15)
[2019-10-11] MEDS: OMEGA 3 (FISH OIL) 1000 MG CAP PO SCH (08:46)
[2019-10-11] MEDS: lisINopril 40 MG (PRINIVIL) TABLET PO SCH (08:46)
[2019-10-11] MEDS: PIOGLITAZONE 30MG (ACTOS) TAB PO SCH (08:46)
[2019-10-11] MEDS: SENNA W/DOCUSATE (SENOKOT S) TABLET PO SCH ×2 (08:46→21:14)
[2019-10-11] MEDS: polyethylene glycoL POWDER 17 GM (MIRALAX) PACK PO SCH ×2 (08:47→21:14)
[2019-10-11] MEDS: ENOXAPARIN 40 MG/0.4 ML (LOVENOX) SYR SC SCH ×2 (08:47→21:15)
--- NOTE | 2019-10-11 09:31 | PM&R Progress Note ---
Subjective HPI/CC On Admission Date Seen by Provider: Oct 11, 2019 Time Seen by Provider: 09:30 Subjective/Events-last exam Patient has good and bad times while admitted to IRF Nausea and vomiting reported this morning and it was liquid and coffee. Patient reports she always has a "vomit bag" with her since she does that periodically at home Very difficult to assess facts with this patient and unsure if this is more aids counselor patience or more acute Patient has had no falls since yesterday shortly after she arrived Left sided weakness is significant Tely maintained Checked med and labs Conferred with RN Reviewed therapy notes Review of Systems Gastrointestinal: Nausea, Vomiting Neurological: Weakness, Numbness, Incoordination Objective Exam Vital Signs Vital Signs Date Time Temp Pulse Resp B/P (MAP) Pulse Ox O2 Delivery O2 Flow Rate FiO2 10/11/19 19:00 96 10/11/19 16:00 36.7 20 137/79 (98) 95 Nasal Cannula 2.00 10/09/19 17:25 28 Capillary Refill : Less Than 3 Seconds General Appearance: No Apparent Distress, WD/WN, Chronically ill, Obese HEENT: PERRL/EOMI, Normal ENT Inspection, Pharynx Normal Neck: Full Range of Motion, Normal Inspection, Non Tender, Supple, Carotid Bruit Respiratory: Chest Non Tender, Lungs Clear, Normal Breath Sounds, No Accessory Muscle Use, No Respiratory Distress, Decreased Breath Sounds Cardiovascular: Regular Rate, Rhythm, No Edema, No Gallop, No JVD, No Murmur, Normal Peripheral Pulses Gastrointestinal: Normal Bowel Sounds, No Organomegaly, No Pulsatile Mass, Non Tender, Soft Back: Normal Inspection, No CVA Tenderness, No Vertebral Tenderness Extremity: Normal Capillary Refill, Normal Inspection, Normal Range of Motion, Non Tender, No Calf Tenderness, No Pedal Edema Neurologic/Psychiatric: Alert, Oriented x3, No Motor/Sensory Deficits (except left arm and left leg 2-3/5), Normal Mood/Affect, document coordinator II-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 FIM Transfers Therapy Code Descriptions/Definitions Functional [place] Measure: 0=Not Assessed/NA 4=Minimal Assistance 1=Total Assistance 5=Supervision or Setup 2=Maximal Assistance 6=Modified [place] 3=Moderate Assistance 7=Complete IndependenceSCALE: Activities may be completed with or without assistive devices. 9-Vqvnaixzue-turksvf completes the activity by him/herself with no assistance from a helper. 5-Set-up or Clean-up Assistance-helper sets up or cleans up; patient completes activity. [place] assists only prior to or following the activity. 4-Supervision or Touching Assistance-helper provides verbal cues and/or touching/steadying and/or contact guard assistance as patient completes activity. Assistance may be provided throughout the activity or intermittently. 3-Partial/Moderate Assistance-helper does LESS THAN HALF the effort. [place] lifts, holds or supports trunk or limbs, but provides less than half the effort. 2-Substantial/Maximal Assistance-helper does MORE THAN HALF the effort. [place] lifts or holds trunk or limbs and provides more than half the effort. 3-Stjglqfjc-umoyvd does ALL the effort. Patient does none of the effort to complete the activity. Or, the assistance of 2 or more helpers is required for the patient to complete the activity. If activity was not attempted, code reason: 7-Patient Refused. 9-Not Applicable-not attempted and the patient did not perform the activity before the current illness, exacerbation or injury. 10-Not Attempted due to Environmental Limitations-(lack of equipment, weather restraints, etc.). 88-Not Attempted due to Medical Conditions or Safety Concerns. Roll Left to Right (QC): 4 Sit to Lying (QC): 3 Sit to Stand (QC): 2 Chair/Jdr-fr-Tvkas Xfer(QC): 2 Car Transfer (QC): 88 Gait Training Does the Patient Walk?: Yes Walk 10 feet (QC): 88 Walk 50 ft with 2 Turns(QC): 88 Walk 150 ft (QC): 88 Walking 10ft/uneven surface-QC: 88 Gait Assistive Device: Handheld Assist Wheelchair Training Does the Pt Use a Wheelchair?: No Wheel 50 ft with 2 turns (QC): 09 Wheel 150 ft (QC): 09 Stair Training 1 Step (curb) (QC): 88 4 Steps (QC): 88 12 Steps (QC): 88 Balance Picking up an Object (QC): 88 ADL-Treatment Eating (QC): 6 Oral Hygiene (QC): 4 Shower/Bathe Self (QC): 2 (To shower room via shower chair. Pt able to wash left UE, chest, and abdomen. Attempts to wash right UE and yudelka area, but requires assist to complete thorough hygiene. Assist required for lower body bathing. Pt leans to left and requires cues for placement of left UE during bathing tasks.) Upper Body Dressing (QC): 7 (pt wearing hospital gown) Lower Body Dressing (QC): 1 (Pt requires total assist to thread LE into depends. Assist x2 for safety to stand and complete pant hike. Pt leans to left in standing) On/Off Footwear (QC): 1 Toileting Hygiene (QC): 1 (Pt incontinent of urine. Requires total assist to complete hygiene.) Assessment/Plan Assessment and Plan Assess & Plan/Chief Complaint Assessment: CVA w/left sided weakness Current smoker COPD Cognitive deficit HTN DM Periodic N/V chronic TIA 05/05 Constipation Plan: Tely IRF protocol N/V management Hold Metformin (1) CVA (cerebral vascular accident) (2) Left-sided weakness (3) Tobacco abuse Status: Chronic (4) Stroke Status: Acute (5) DVT prophylaxis Status: Acute (6) COPD (chronic obstructive pulmonary disease) (7) Diabetes (8) Hyperlipemia (9) Hypertension (10) Leukocytosis Status: Acute (11) Hyponatremia Status: Acute (12) Smoker SUNNY ANDERSON DO Oct 11, 2019 09:31
[2019-10-11] MEDS ORDERED: PROMETHAZINE INJ 25 MG/ML (PHENERGAN) AMP IM/IV NR (09:54)
--- NOTE | 2019-10-11 10:09 | Occupational Ther Daily Note ---
OT Current Status-Daily Note Subjective Pt seen EOB with PT, pt agreeable to 30 min co-treat with PT. Co-treat rendered due to pt's decreased transfer ability, decreased balance and L sided weakness which requires the assist of 2 skilled clinicians for hgier level activities. PT focused on transfers and balance while OT worked on ADL tasks and L UE movement. Mental Status/Objective Patient Orientation: Person, Place, Situation Attachments: Oxygen (2L), Telemetry ADL-Treatment Therapy Code Descriptions/Definitions Functional [place] Measure: 0=Not Assessed/NA 4=Minimal Assistance 1=Total Assistance 5=Supervision or Setup 2=Maximal Assistance 6=Modified [place] 3=Moderate Assistance 7=Complete IndependenceSCALE: Activities may be completed with or without assistive devices. 7-Lvdyflcclj-vwlzltl completes the activity by him/herself with no assistance from a helper. 5-Set-up or Clean-up Assistance-helper sets up or cleans up; patient completes activity. [place] assists only prior to or following the activity. 4-Supervision or Touching Assistance-helper provides verbal cues and/or touching/steadying and/or contact guard assistance as patient completes activity. Assistance may be provided throughout the activity or intermittently. 3-Partial/Moderate Assistance-helper does LESS THAN HALF the effort. [place] lifts, holds or supports trunk or limbs, but provides less than half the effort. 2-Substantial/Maximal Assistance-helper does MORE THAN HALF the effort. [place] lifts or holds trunk or limbs and provides more than half the effort. 4-Zlbbjdhse-sqjcbk does ALL the effort. Patient does none of the effort to complete the activity. Or, the assistance of 2 or more helpers is required for the patient to complete the activity. If activity was not attempted, code reason: 7-Patient Refused. 9-Not Applicable-not attempted and the patient did not perform the activity before the current illness, exacerbation or injury. 10-Not Attempted due to Environmental Limitations-(lack of equipment, weather restraints, etc.). 88-Not Attempted due to Medical Conditions or Safety Concerns. Eating (QC): 5 Oral Hygiene (QC): 7 Bathing Location: L Arm, R Arm, L Upper Leg, R Upper Leg, Chest, Abdomen Shower/Bathe Self (QC): 2 (max A for LB assist, yudelka area, bottom hygiene, and thoroughness in arm pits. Pt requires assist x2 to sit to stand from bed and maintain balance safely. pt able to reach yudelka area and maintain balance- CGA throughout) Upper Body Dressing (QC): 4 Lower Body Dressing (QC): 2 (breifs donned bilateral feet. pt brings up to hips. Pt able to don R side, max A for L side.) On/Off Footwear: 2 (pt doffs with SBA EOB (utilizes B feet to doff), unable to don) Toileting Hygiene (QC): 1 Other Treatment [id number] (PT/ OT co-treat): Pt completes sit to stands x3 with CGA- min A. Pt requires assist to maintain stance and requires max Ax2 within the 30 min session due to fatigue. Pt c/o nausea during session with increased movement. Pt agrees to sponge bath EOB, maintains upright position with min cues, pt able to recognize L side leaning intermittently. [id number]: Pt returns to bed, c/o nausea (vomits 3x in row into bucket.) Pt requires TD to get to center of bed. Pt left in room with call light in reach, all needs met, pt takes drink and states no more nausea, rail up due to pt's decreased balance and bed mob, pt agrees to bed rail up. Education OT Patient Education: Correct positioning, Exercise program, Modified ADL techniques, Purpose of tx/functional activities, Reviewed precautions, Safety issues, Transfer techniques Teaching Recipient: Patient Teaching Methods: Demonstration, Discussion Response to Teaching: Verbalize Understanding, Return Demonstration, Reinforcement Needed OT Short Term Goals Short Term Goals Time Frame: Oct 16, 2019 Toileting hygiene: 2 Shower/bathe self: 3 Upper body dressin Lower body dressin OT Telemedicine Physician Goals Residential Goals Time Frame: Oct 30, 2019 Eating (QC): 6 Oral Hygiene (QC): 6 Toileting Hygiene (QC): 5 Shower/Bathe Self (QC): 5 Upper Body Dressing (QC): 6 Lower Body Dressing (QC): 5 On/Off Footwear (QC): 5 Additional Goals: 1-Demonstrate ADL Tasks, 2-Verbalize Understanding, 3- ImproveStrength/Marjorie 1=Demonstrate adherence to instructed precautions during ADL tasks. 2=Patient will verbalize/demonstrate understanding of assistive devices/modifications for ADL. 3=Patient will improve strength/tolerance for activity to enable patient to perform ADL's. OT Education/Plan Problem List/Assessment Assessment: Decreased Activ Tolerance, Decreased Safety Aware, Decreased UE Strength, Dependent Transfers, Impaired Bed Mobility, Impaired Cognition, Impaired Coordination, Impaired Funct Balance, Impaired I ADL's, Impaired Self- Care Skills Discharge Recommendations Plan/Recommendations: Continue POC Therapy Discharge Recommendati: 24 Hour Supervision Treatment Plan/Plan of Care Treatment,Training & Education: Yes Patient would benefit from OT for education, treatment and training to promote independence in ADL's, mobility, safety and/or upper extremity function for ADL's. Plan of Care: ADL Retraining, Functional Mobility, Group Exercise/Act as Ind, UE Funct Exercise/Act, UE Neuromus Re-Ed/Coord Treatment Duration: Oct 30, 2019 Frequency: At least 5 of 7 days/Wk (IRF) Estimated Hrs Per Day: 1.5 hours per day Rehab Potential: Fair Time/GCodes Start Time: 09:00 Stop Time: 10:00 Total Time Billed (hr/min): 60 Billed Treatment Time Co-treat: [id number]: co-treat with PT. Co-treat rendered due to pt's decreased transfer ability, decreased balance and L sided weakness which requires the assist of 2 skilled clinicians for hgier level activities. PT focused on transfers and balance while OT worked on ADL tasks and L UE movement. Individual OT tx: [id number]: 1, ADL 4 (60) BARRY BYERS OTR Oct 11, 2019 10:09
--- NOTE | 2019-10-11 10:32 | Speech Therapy Daily Note ---
Speech Daily Progress Note Subjective Date Seen by Provider: Oct 11, 2019 Time Seen by Provider: 00:30 Patient was resting in her bed after taking Phenagren for nausea. She was able to participate in session though. Objective Patient completed q/a session related to her daily needs at home with 80% given moderate cues and/or repetitions. Assessment Assessment Current Status: Fair Progress Treatment Plan Continue Plan of Care Speech Short Term Goals Short Term Goals Short Term Goals 1) Patient will complete memory tasks related to daily needs at 90% or greater with minimal cues. 2) Patient will complete safety awareness tasks related to daily needs at 90% or greater with minimal cues. 3) Patient will complete problem solving tasks related to daily needs at 90% or greater with minimal cues. Speech Director Of Testing Goals Director Of Testing Goals Patient will improve cognitive-communication necessary for safety and daily living tasks with minimal assist. Speech-Plan Patient/Family Goals Patient/Family Goals: Patient plans on returning to her home post rehab. Treatment Plan Speech Therapy Treatment Plan: Continue Plan of Care Treatment Duration: Oct 10, 2019 Frequency: 5 times per week Estimated Hrs Per Day: .5 hour per day Rehab Potential: Fair Barriers to Learning: Patient's recent CVA Pt/Family Agrees to Plan: Yes Safety Risks/Education Teaching Recipient: Patient Teaching Methods: Demonstration, Discussion Response to Teaching: Verbalize Understanding, Return Demonstration Education Topics Provided: Continued safety within the ARU and communication of wants/needs. Time Speech Therapy Time In: 10:00 Speech Therapy Time Out: 10:30 Total Billed Time: 30 Billed Treatment Time [address] Oct 11, 2019 10:32
--- NOTE | 2019-10-11 10:43 | Physical Therapy Daily Note ---
PT Daily Note-Current Subjective Pt R sidelying in bed upon arrival. Pt reports feeling nauseated and dizzy but agrees to limited Rx. Pain Numeric Pain Scale: 6 Location: Left Location Body Site: Shoulder Pain Description: Ache, Tightness Comment: Pt reports pain in L shoulder and LE. Mental Status Patient Orientation: Person, Confused, Place Attachments: Oxygen, Other-See Comments (Telemetry) Transfers SCALE: Activities may be completed with or without assistive devices. 0-Dklnfatjhs-nbhrbff completes the activity by him/herself with no assistance from a helper. 5-Set-up or Clean-up Assistance-helper sets up or cleans up; patient completes activity. [place] assists only prior to or following the activity. 4-Supervision or Touching Assistance-helper provides verbal cues and/or touching/steadying and/or contact guard assistance as patient completes activity. Assistance may be provided throughout the activity or intermittently. 3-Partial/Moderate Assistance-helper does LESS THAN HALF the effort. [place] lifts, holds or supports trunk or limbs, but provides less than half the effort. 2-Substantial/Maximal Assistance-helper does MORE THAN HALF the effort. [place] lifts or holds trunk or limbs and provides more than half the effort. 0-Mvlogugrn-hgxzeb does ALL the effort. Patient does none of the effort to complete the activity. Or, the assistance of 2 or more helpers is required for the patient to complete the activity. If activity was not attempted, code reason: 7-Patient Refused. 9-Not Applicable-not attempted and the patient did not perform the activity before the current illness, exacerbation or injury. 10-Not Attempted due to Environmental Limitations-(lack of equipment, weather restraints, etc.). 88-Not Attempted due to Medical Conditions or Safety Concerns. Sit to Lying (QC): 3 Lying to Sitting/Side of Bed(Q: 3 Sit to Stand (QC): 3 Toilet Transfer (QC): 3 Weight Bearing Right Lower Extremity: Right Full Weight Bearing Left Lower Extremity: Left Full Weight Bearing Exercises Seated Therapy Exercises: Ankle pumps, Sit to stand, Long arc quads, Hip flexion, Kicking activity Seated Reps: 15 Treatments Pt completes limited Supine Ex in bed due to pain. Pt transfers to EOB but reports dizziness. Pt completes Seated Ex with frequent RB. Nurse gives morning meds including pain med and takes BP (143/68). Pt uses BSC then returns to EOB to rest. OT arrives for 30m co-treat. [id number] (PT/ OT co-treat): Pt completes sit to stands x3 with CGA- min A. Pt requires assist to maintain stance and requires max Ax2 within the 30 min session due to fatigue. Pt c/o nausea during session with increased movement. Pt agrees to sponge bath EOB, maintains upright position with min cues, pt able to recognize L side leaning intermittently. Assessment Current Status: Fair Progress Pt is limited by fatigue, balance, pain and confusion during Rx. PT Assistant Women'S Tennis Coach Goals Assistant Women'S Tennis Coach Goals PT Assistant Women'S Tennis Coach Goals Time Frame: Oct 30, 2019 Roll Left & Right (QC): 6 Sit to Lying (QC): 6 Lying-Sitting on Side/Bed(QC): 6 Sit to Stand (QC): 6 Chair/Hrx-qb-[place] Xfer(QC): 6 Toilet Transfer (QC): 6 Car Transfer (QC): 6 Does the Patient Walk: Yes Walk 10 feet (QC): 6 Walk 50ft with 2 Turns (QC): 6 Walk 150 ft (QC): 6 Walking 10ft on Uneven Surface: 6 1 Step (curb) (QC): 6 4 Steps (QC): 6 12 Steps (QC): 6 Picking up an Object (QC): 6 Does the Pt use WC or Scooter?: No Wheel 50 feet with 2 turns (QC: 09 Wheel 150 feet: 09 PT Plan Problem List Problem List: Activity Tolerance, Functional Strength, Safety, Balance, Gait, Transfer, Bed Mobility Treatment/Plan Treatment Plan: Continue Plan of Care Treatment Plan: Bed Mobility, Concurrent Therapy, Education, Functional Activity Marjorie, Functional Strength, Group Therapy, Gait, Safety, Therapeutic Exercise, Transfers Treatment Duration: Oct 30, 2019 Frequency: 6 times per week Estimated Hrs Per Day: 1.5 hours per day Patient and/or Family Agrees t: Yes Safety Risks/Education Patient Education: Transfer Techniques, Correct Positioning, Safety Issues Teaching Recipient: Patient Teaching Methods: Discussion Response to Teaching: Reinforcement Needed Time/GCodes Time In: 800 Time Out: 900 Total Billed Treatment Time: 60 Total Billed Treatment 1, EX x2 (25m) & FA x4 (65m) Co-treat w/OT 30m (900-930) Co-treat rendered due to pt's decreased transfer ability, decreased balance and L sided weakness which requires the assist of 2 skilled clinicians for hgier level activities. PT focused on transfers and balance while OT worked on ADL tasks and L UE movement DAX COBURN FIELD TRAFFIC INVESTIGATOR Oct 11, 2019 10:43
[2019-10-11] MEDS: PANTOPRAZOLE 40 MG (PROTONIX) TAB PO SCH (12:05)
--- NOTE | 2019-10-11 13:33 | Occupational Ther Daily Note ---
OT Current Status-Daily Note Subjective Pt seen in bed. Pt states need for bathroom. Pt states no pain, no nausea at this time. Mental Status/Objective Patient Orientation: Person, Place, Situation Attachments: Oxygen ADL-Treatment Therapy Code Descriptions/Definitions Functional [place] Measure: 0=Not Assessed/NA 4=Minimal Assistance 1=Total Assistance 5=Supervision or Setup 2=Maximal Assistance 6=Modified [place] 3=Moderate Assistance 7=Complete IndependenceSCALE: Activities may be completed with or without assistive devices. 8-Hwuilskqnu-jjttgzr completes the activity by him/herself with no assistance from a helper. 5-Set-up or Clean-up Assistance-helper sets up or cleans up; patient completes activity. [place] assists only prior to or following the activity. 4-Supervision or Touching Assistance-helper provides verbal cues and/or touching/steadying and/or contact guard assistance as patient completes activity. Assistance may be provided throughout the activity or intermittently. 3-Partial/Moderate Assistance-helper does LESS THAN HALF the effort. [place] lifts, holds or supports trunk or limbs, but provides less than half the effort. 2-Substantial/Maximal Assistance-helper does MORE THAN HALF the effort. [place] lifts or holds trunk or limbs and provides more than half the effort. 1-Lquxfeglq-lbpdcq does ALL the effort. Patient does none of the effort to complete the activity. Or, the assistance of 2 or more helpers is required for the patient to complete the activity. If activity was not attempted, code reason: 7-Patient Refused. 9-Not Applicable-not attempted and the patient did not perform the activity before the current illness, exacerbation or injury. 10-Not Attempted due to Environmental Limitations-(lack of equipment, weather restraints, etc.). 88-Not Attempted due to Medical Conditions or Safety Concerns. Eating (QC): 6 Oral Hygiene (QC): 7 Toileting Hygiene (QC): 4 (SBA and s/u for yudelka hygiene.) Toilet Transfer (QC): 2 (Max A. Pt sit to stand with max A. Transferred to [facility] with mod A. Max A off commode.) Other Treatment Pt completes bed mob with mod A (R LE). Sit to stand max A. Utilizes bathroom. Pt returns to EOB (max A) and then transfers to recliner chair, (mod A). placed to R of pt. Pt situated in bed. Pt completes hair grooming, able to brush with moderate thoroughness. Pt requires assist for toughness and completion of hair styling. Pt denies needs, LE's elevated with pillow under legs, all needs met, chair alarm on. Education OT Patient Education: Correct positioning, Modified ADL techniques, Safety issues, Transfer techniques Teaching Recipient: Patient Teaching Methods: Discussion Response to Teaching: Verbalize Understanding, Return Demonstration, Reinforcement Needed OT Short Term Goals Short Term Goals Time Frame: Oct 16, 2019 Toileting hygiene: 2 Shower/bathe self: 3 Upper body dressin Lower body dressin OT Press Breaker Goals Press Breaker Goals Time Frame: Oct 30, 2019 Eating (QC): 6 Oral Hygiene (QC): 6 Toileting Hygiene (QC): 5 Shower/Bathe Self (QC): 5 Upper Body Dressing (QC): 6 Lower Body Dressing (QC): 5 On/Off Footwear (QC): 5 Additional Goals: 1-Demonstrate ADL Tasks, 2-Verbalize Understanding, 3- ImproveStrength/Marjorie 1=Demonstrate adherence to instructed precautions during ADL tasks. 2=Patient will verbalize/demonstrate understanding of assistive devices/modifications for ADL. 3=Patient will improve strength/tolerance for activity to enable patient to perform ADL's. OT Education/Plan Problem List/Assessment Assessment: Decreased Activ Tolerance, Decreased UE Strength, Dependent Transfers, Impaired Bed Mobility, Impaired Coordination, Impaired Funct Balance, Impaired I ADL's, Impaired Self-Care Skills, Restricted Funct UE ROM Discharge Recommendations Plan/Recommendations: Continue POC Therapy Discharge Recommendati: 24 Hour Supervision, Scheduled Assistance Treatment Plan/Plan of Care Treatment,Training & Education: Yes Patient would benefit from OT for education, treatment and training to promote independence in ADL's, mobility, safety and/or upper extremity function for ADL's. Plan of Care: ADL Retraining, Functional Mobility, Group Exercise/Act as Ind, UE Funct Exercise/Act, UE Neuromus Re-Ed/Coord Treatment Duration: Oct 30, 2019 Frequency: At least 5 of 7 days/Wk (IRF) Estimated Hrs Per Day: 1.5 hours per day Rehab Potential: Fair Time/GCodes Start Time: 12:45 Stop Time: 13:15 Total Time Billed (hr/min): 30 Billed Treatment Time 1, ADL 2 (30) BARRY BYERS OTR Oct 11, 2019 13:33
--- NOTE | 2019-10-11 14:21 | NUR ---
CM/SS ADMISSION Patient was admitted to ARU from [facility] for CVA, left sided weakness. Additional comorbidities and challenges include, in part, NIDDM, HTN, COPD, Asthma, anxiety/depression, daily tobaccoism. Before hospitalization, patient resided alone in [facility]. She indicates all apartments have multiple stairs, that it is in sort of a split level entry style. Her overall LOF was suspected to be more dependent than independent, but she managed until hospitalization. Her two daughters have been working together to explore other living environments for patient including apartments, nursing facilities. She, at age 64, is uninsured and receives VA "disability" income of about $1,000 monthly. Daughter Ofelia explored in-home services through [employer] and was told patient would not qualify for Medicaid HCBS because of the VA income, not confirmed by tag writer. PCP: [facility] [place] DME: KAYKAY, heena, recent life alert and paid for by daughter Ofelia. ADVANCED DIRECTIVE: None at this time. Recommended if patient is competent and agrees to complete. PHARMACY: [facility]. INSURANCE: Uninsured as earlier noted. Problematic for post hospital care planning. [facility] Financial Services staff working with patient regarding Medicaid and VA benefits. CONTACTS: Ofelia Spaulding, Daughter [address] [address] Caroline Eller, Daughter [address] [place] [address] Ofelia works for [employer] providing [employer], she has 3 clients in her home at this time and they are under no visitor, no outing policy re Covid19. Desk Attendant is not sure of Caroline's employment status but both daughters are feeling stressed because of not being able to be here with their mother in person. Desk Attendant provided empathic listening and insured we are providing care and compassion to patient for all needs. Patient, Ofelia and Caroline all understood the purpose and process of the weekly Patient Care Conference. Continue monitor for progress. Children understand that patient can not return to [facility] and likely can not live independently immediately post discharge. Consideration would be community nursing facility or assisted living, lack of funding prohibitive for either.
[2019-10-11 16:00] VITALS: BP 137/79
[2019-10-11] MEDS: MELATONIN 3 MG TABLET PO PRN (21:15)
[2019-10-11] MEDS: MULTIVIT W/MINERALS TAB (THERAGRAN M) PO SCH (21:15)
[2019-10-11] MEDS: ASPIRIN E.C. 81 MG (ECOTRIN) TAB PO SCH (21:15)
[2019-10-12] MEDS: LEVOTHYROXINE 75 MCG (LEVOTHROID) TABLET PO SCH (05:58)
[2019-10-12] MEDS: LEVOTHYROXINE 100 MCG (LEVOTHROID) TAB PO SCH (05:59)
[2019-10-12] MEDS: inSUlin ASPART (NovoLOG) 1 UNIT/0.01 ML (CHARGE PER UNIT) SC SCH ×4 (05:59→21:31)
[2019-10-12 06:00] VITALS: BP 145/82
[2019-10-12] MEDS: RT-ALBUTEROL/IPRATROPIUM 3 ML (DUONEB) VIAL INH SCH ×3 (07:29→18:32)
[2019-10-12] MEDS: SENNA W/DOCUSATE (SENOKOT S) TABLET PO SCH ×2 (10:01→21:29)
[2019-10-12] MEDS: VITAMIN D3 25 MCG (1,000 UNITS) TABLET PO SCH ×3 (10:01→21:29)
--- NOTE | 2019-10-12 10:01 | Physical Therapy Daily Note ---
PT Daily Note-Current Subjective Pt. agrees initially to Rx but c/o throughout that she is too tired or"cant do it' or it hurts too much. c/o pain in left arm at 810 . Had education discussion with pt. and explained the goals and focus of Rehab and asked pt. her own goals with regards to this . Pt. seemed to give a little more effort after this but appears depressed and discouraged Pain Numeric Pain Scale: 8 Location: Left Location Body Site: Shoulder Pain Description: Ache Appearance seems depressed, negative needs encouragement and instruction every Rx Mental Status Patient Orientation: Person, Place, Time, Situation Attachments: Oxygen (3L) Transfers SCALE: Activities may be completed with or without assistive devices. 7-Qhvlhgtlma-vbdwuzl completes the activity by him/herself with no assistance from a helper. 5-Set-up or Clean-up Assistance-helper sets up or cleans up; patient completes activity. [place] assists only prior to or following the activity. 4-Supervision or Touching Assistance-helper provides verbal cues and/or touching/steadying and/or contact guard assistance as patient completes activity. Assistance may be provided throughout the activity or intermittently. 3-Partial/Moderate Assistance-helper does LESS THAN HALF the effort. [place] lifts, holds or supports trunk or limbs, but provides less than half the effort. 2-Substantial/Maximal Assistance-helper does MORE THAN HALF the effort. [place] lifts or holds trunk or limbs and provides more than half the effort. 7-Nxwyzvpeu-wkbcwk does ALL the effort. Patient does none of the effort to complete the activity. Or, the assistance of 2 or more helpers is required for the patient to complete the activity. If activity was not attempted, code reason: 7-Patient Refused. 9-Not Applicable-not attempted and the patient did not perform the activity before the current illness, exacerbation or injury. 10-Not Attempted due to Environmental Limitations-(lack of equipment, weather restraints, etc.). 88-Not Attempted due to Medical Conditions or Safety Concerns. Roll Left & Right (QC): 2 Sit to Lying (QC): 2 Lying to Sitting/Side of Bed(Q: 2 Sit to Stand (QC): 3 multiple TRFs SPTs with mod assist of 2, pt. needs assist to stablilize her left knee as well as instruction in alignment of trunk and where to concentrate her gaze, utilized the mirror in front of pt at parallel bars for visual feedback. Weight Bearing Right Lower Extremity: Right Full Weight Bearing Left Lower Extremity: Left Full Weight Bearing Gait Training only side steps left and right or a few steps for and back at parallel bars as pt. has poor control left knee stability Wheelchair Training Does the Pt Use a Wheelchair?: Yes Wheel 50 ft with 2 turns (QC): 2 Type of Wheelchair: Manual needs assist to propel as well as to lock brakes and turn, pt. supports LLE with RLE Exercises Supine Ex: Ankle pumps, Heel Slides Supine Reps: 12 Seated Therapy Exercises: Sit to stand, Long arc quads (assited left) Seated Reps: 12 Standing: Side steps, Weight shifts Standing Reps: 12 Treatments all activity very slow with many rest breaks and discussion bout focus and goals Assessment Current Status: Good Progress, Fair Progress continues dependent for all TRFs and whch mobility PT Correction Goals Radio Intelligence Operator Goals PT Radio Intelligence Operator Goals Time Frame: Oct 30, 2019 Roll Left & Right (QC): 6 Sit to Lying (QC): 6 Lying-Sitting on Side/Bed(QC): 6 Sit to Stand (QC): 6 Chair/Uyz-oo-Xcbhy Xfer(QC): 6 Toilet Transfer (QC): 6 Car Transfer (QC): 6 Does the Patient Walk: Yes Walk 10 feet (QC): 6 Walk 50ft with 2 Turns (QC): 6 Walk 150 ft (QC): 6 Walking 10ft on Uneven Surface: 6 1 Step (curb) (QC): 6 4 Steps (QC): 6 12 Steps (QC): 6 Picking up an Object (QC): 6 Does the Pt use WC or Scooter?: No Wheel 50 feet with 2 turns (QC: 09 Wheel 150 feet: 09 PT Plan Treatment/Plan Treatment Plan: Continue Plan of Care Treatment Plan: Bed Mobility, Concurrent Therapy, Education, Functional Activity Marjorie, Functional Strength, Group Therapy, Gait, Safety, Therapeutic Exercise, Transfers Treatment Duration: Oct 30, 2019 Frequency: 6 times per week Estimated Hrs Per Day: 1.5 hours per day Patient and/or Family Agrees t: Yes Safety Risks/Education Patient Education: Gait Training, Correct Positioning, W/C Management, Disease Process, Safety Issues Teaching Recipient: Patient Teaching Methods: Demonstration, Discussion Response to Teaching: Verbalize Understanding, Return Demonstration, [facility] ement Needed Time/GCodes Time In: 900 Time Out: 1000 Total Billed Treatment Time: 60 Total Billed Treatment 1,FA35m,wc 15m,EX10m ELISABETH PARRA ELECTROMECHANICAL EQUIPMENT ASSEMBLER Oct 12, 2019 10:01
[2019-10-12] MEDS: lisINopril 40 MG (PRINIVIL) TABLET PO SCH (10:02)
[2019-10-12] MEDS: HYDROcodone/APAP 5 MG/325 MG (LORTAB) TAB PO PRN ×2 (10:02→16:00)
[2019-10-12] MEDS: PANTOPRAZOLE 40 MG (PROTONIX) TAB PO SCH (10:02)
[2019-10-12] MEDS: PIOGLITAZONE 30MG (ACTOS) TAB PO SCH (10:02)
[2019-10-12] MEDS: OMEGA 3 (FISH OIL) 1000 MG CAP PO SCH (10:03)
[2019-10-12] MEDS: ENOXAPARIN 40 MG/0.4 ML (LOVENOX) SYR SC SCH ×2 (10:03→21:31)
[2019-10-12] MEDS: CLOPIDOGREL 75 MG (PLAVIX) TABLET PO SCH (10:03)
[2019-10-12] MEDS: DOCUSATE SODIUM 100 MG (COLACE) CAP PO SCH ×2 (10:03→21:28)
[2019-10-12] MEDS: polyethylene glycoL POWDER 17 GM (MIRALAX) PACK PO SCH ×2 (10:03→21:32)
--- NOTE | 2019-10-12 10:21 | Occupational Ther Daily Note ---
OT Current Status-Daily Note Subjective [id number]: Pt seen in bed. Pt immediately states pain in L arm/ shoulder upon OT entry. Pt states she wants "gel" on her arm prior to start- nursing notified. Pt expresses she would like to sit up while eating. Pt and OT discuss what "sitting up" means to pt as she is very specific. Pt states she would like to sit in the recliner chair while eating with pillows behind to prop. Pt later states she would like to sit in w/c as it is more of a "chair" and she wouldn't need propped up. pt educated on balance and core strength needed for successful feeding in w/c. Pt states she would like to work towards this. Pt agreeable to OT tx session. [id number]: Pt seen in bed. Pt states just got down in bed but agreeable to sitting up in chair with legs down for lunch. Pt denies current pain, then with activity of LUE states "achiness" of L shoulder. Mental Status/Objective Patient Orientation: Person, Place, Situation Attachments: Oxygen (3L) ADL-Treatment Therapy Code Descriptions/Definitions Functional [place] Measure: 0=Not Assessed/NA 4=Minimal Assistance 1=Total Assistance 5=Supervision or Setup 2=Maximal Assistance 6=Modified [place] 3=Moderate Assistance 7=Complete IndependenceSCALE: Activities may be completed with or without assistive devices. 2-Whzzrhyinh-bglvomz completes the activity by him/herself with no assistance from a helper. 5-Set-up or Clean-up Assistance-helper sets up or cleans up; patient completes activity. [place] assists only prior to or following the activity. 4-Supervision or Touching Assistance-helper provides verbal cues and/or touching/steadying and/or contact guard assistance as patient completes activity. Assistance may be provided throughout the activity or intermittently. 3-Partial/Moderate Assistance-helper does LESS THAN HALF the effort. [place] lifts, holds or supports trunk or limbs, but provides less than half the effort. 2-Substantial/Maximal Assistance-helper does MORE THAN HALF the effort. [place] lifts or holds trunk or limbs and provides more than half the effort. 2-Gemtpvkaq-ibcgaq does ALL the effort. Patient does none of the effort to complete the activity. Or, the assistance of 2 or more helpers is required for the patient to complete the activity. If activity was not attempted, code reason: 7-Patient Refused. 9-Not Applicable-not attempted and the patient did not perform the activity before the current illness, exacerbation or injury. 10-Not Attempted due to Environmental Limitations-(lack of equipment, weather restraints, etc.). 88-Not Attempted due to Medical Conditions or Safety Concerns. Oral Hygiene (QC): 6 (with pt in w/c in front of sink, pt able to utilze BUE for prepping of toothbrush/ toothpaste. Pt utilizes RUE to guide LUE toward water to turn on / off water. Pt completes with IND while seated.) Shower/Bathe Self (QC): 7 Lower Body Dressing (QC): 2 (Pt attempts pulling breif down, requires assist in stance with L side to pull to completion. Requires max A to right self while bending over. Pt doffs with education and successful completion with dressing stick. Dons breif over feet with education and use of slider assembler. Pt requires max A to pull up over hips on L side and maintain balance. ) On/Off Footwear: 1 Toileting Hygiene (QC): 4 (Pt able to complete yudelka hygiene. Bottom wiping with max A. ) Toilet Transfer (QC): 2 (Pt sit to stand from bed with CGA, pt ambulates 2 steps with walker use and min A for righting balance to BSC placed on R side. ) Other Treatment [id number]:Pt completes bed mob with mod A (L LE). Pt c/o pain and difficulty eating as she was in bed. Pt educated on her participation/ being active advocator for herself, pt states she "told nursing she wanted to sit up, but they brought my head up." Pt educated on being more specific for specific results. Pt agrees. Pt completes above ADLs. Pt then brought to w/c (max A) and positioned with LE's elevated on leg rests. Pt pushed to therapy gym, pt educat ed on importance of LUE movement for mm activation, decreasing mm contraction, and decreasing pain. PROM completed to all joints to WNL all planes of LUE. Pt then educated on AAROM with use of RUE for LUE movement. Pt agrees, completes AROM of shoulder with use of gravity elimination (5 reps), elbow flexion extension (10 reps to WFL), sup/ pronation (10 reps) and wrist flexion/ ext ension (10 reps). Pt educated on PT post-OT, pt states she plans to remain in w/c. Pt pushed back to room, call light on lap, all needs met, pt in w/c. [id number]: Pt completes bed mob with min A, sit to stand with min A, pt ambultes 2 steps to R with 2WW and sits in recliner with cues for leg positioning and reaching back for chair. Pt sits in recliner, chair alarm on. Pt positioned with pillows for comfort and upright positioning for eating. Pt agreeable to UE HEP exercises. Pt educated on PROM/ AROM of LUE and, again, completes AROM to full muscle range and then completes AAROM of LUE to full forward flexion, abduction. Pt states achiness in shoulder. Pt educated on completing LUE int/ external rotations for increasing joint lubrication and muscle elasticity and activation. Pt return demonstrates. Pt then completes 5 AROM hand sponge grasps in 3 planes: forward flexion, scaption, and abduction. Pt educated on benefits and increased difficulty of proximal stability during distal mobility. Pt states underst anding, educated to complete 3x per day. Pt agrees. All needs met, RT present, call light in reach, chair alarm on. Pt s/u to eat. Education OT Patient Education: Correct positioning, Exercise program, Home exercise program, Modified ADL techniques, Safety issues, Transfer techniques, Use of adapted equipment Teaching Recipient: Patient Teaching Methods: Demonstration, Discussion Response to Teaching: Verbalize Understanding, Return Demonstration, Reinforcement Needed OT Short Term Goals Short Term Goals Time Frame: Oct 16, 2019 Toileting hygiene: 2 Shower/bathe self: 3 Upper body dressin Lower body dressin OT Mud Analysis Operator Goals Intermediate Goals Time Frame: Oct 30, 2019 Eating (QC): 6 Oral Hygiene (QC): 6 Toileting Hygiene (QC): 5 Shower/Bathe Self (QC): 5 Upper Body Dressing (QC): 6 Lower Body Dressing (QC): 5 On/Off Footwear (QC): 5 Additional Goals: 1-Demonstrate ADL Tasks, 2-Verbalize Understanding, 3- ImproveStrength/Marjorie 1=Demonstrate adherence to instructed precautions during ADL tasks. 2=Patient will verbalize/demonstrate understanding of assistive dev ices/modifications for ADL. 3=Patient will improve strength/tolerance for activity to enable patient to perform ADL's. OT Education/Plan Problem List/Assessment Assessment: Decreased Activ Tolerance, Decreased Safety Aware, Decreased UE Strength, Dependent Transfers, Impaired Bed Mobility, Impaired Cognition, Impaired Coordination, Impaired Funct Balance, Impaired I ADL's, Impaired Self- Care Skills, Restricted Funct UE ROM Discharge Recommendations Plan/Recommendations: Continue POC Therapy Discharge Recommendati: 24 Hour Supervision Treatment Plan/Plan of Care Treatment,Training & Education: Yes Patient would benefit from OT for education, treatment and training to promote independence in ADL's, mobility, safety and/or upper extremity function for A DL's. Plan of Care: ADL Retraining, Functional Mobility, Group Exercise/Act as Ind, UE Funct Exercise/Act, UE Neuromus Re-Ed/Coord Treatment Duration: Oct 30, 2019 Frequency: At least 5 of 7 days/Wk (IRF) Estimated Hrs Per Day: 1.5 hours per day Rehab Potential: Fair Time/GCodes Start Time: 08:00 (1135) Stop Time: 09:00 (1150) Total Time Billed (hr/min): 75 Billed Treatment Time 9300-1614: 1, ADL 3, EX (60) [id number]: 1, ADL (15) total= 75 BARRY BYERS OTR Oct 12, 2019 10:20
--- NOTE | 2019-10-12 10:50 | NUR ---
Pastoral care visit.
--- NOTE | 2019-10-12 11:04 | Speech Therapy Daily Note ---
Speech Daily Progress Note Subjective Date Seen by Provider: Oct 12, 2019 Time Seen by Provider: 00:30 Patient was resting in her bed following her PT session. She had c/o pain and was unhappy that "some people try to make me do things I'm not able to do". Objective Patient completed general information q/a with 75% given min to mod verbal cues and/or repetitions. Patient does require additional processing time for ques tions. Assessment Assessment Current Status: Fair Progress Treatment Plan Continue Plan of Care Speech Short Term Goals Short Term Goals Short Term Goals 1) Patient will complete memory tasks related to daily needs at 90% or greater with minimal cues. 2) Patient will complete safety awareness tasks related to daily needs at 90% or greater with minimal cues. 3) Patient will complete problem solving tasks related to daily needs at 90% or greater with minimal cues. Speech Itinerant Teacher Assistant Goals Itinerant Teacher Assistant Goals Patient will improve cognitive-communication necessary for safety and daily living tasks with minimal assist. Speech-Plan Patient/Family Goals Patient/Family Goals: Patient plans on returning home where she lives alone. At this time she would need extra help for all of her daily needs. Discharge situation will be determined at a later date. Treatment Plan Speech Therapy Treatment Plan: Continue Plan of Care Treatment Duration: Oct 10, 2019 Frequency: 5 times per week Estimated Hrs Per Day: .5 hour per day Rehab Potential: Fair Barriers to Learning: Patient's recent CVA affects Pt/Family Agrees to Plan: Yes Safety Risks/Education Teaching Recipient: Patient Teaching Methods: Demonstration, Discussion Response to Teaching: Verbalize Understanding, Return Demonstration Education Topics Provided: Continued safety and communication of wants/needs Time Speech Therapy Time In: 10:00 Speech Therapy Time Out: 10:30 Total Billed Time: 30 Billed Treatment Time [address] Oct 12, 2019 11:03
--- NOTE | 2019-10-12 11:35 | PM&R Progress Note ---
Subjective HPI/CC On Admission Date Seen by Provider: Oct 12, 2019 Time Seen by Provider: 11:00 Subjective/Events-last exam BM 4 days ago and will initiate suppository and Fleets if needed to get that started again No pain is reported No N/V reported Sugars are good Left shoulder still sore and limited from CVA Inconsistent with her abilities and activities Tely maintained Checked med and labs Conferred with RN Reviewed therapy notes Review of Systems General: Fatigue Musculoskeletal: arm pain Neurological: Weakness, Numbness, Incoordination Objective Exam Vital Signs Vital Signs Date Time Temp Pulse Resp B/P (MAP) Pulse Ox O2 Delivery O2 Flow Rate FiO2 10/12/19 12:04 74 10/12/19 11:53 95 Nasal Cannula 3.00 10/12/19 06:00 36.6 20 145/82 (103) 10/09/19 17:25 28 Capillary Refill : Less Than 3 Seconds General Appearance: No Apparent Distress, WD/WN, Chronically ill, Obese HEENT: PERRL/EOMI, Normal ENT Inspection, Pharynx Normal Neck: Full Range of Motion, Normal Inspection, Non Tender, Supple, Carotid Bruit Respiratory: Chest Non Tender, Lungs Clear, Normal Breath Sounds, No Accessory Muscle Use, No Respiratory Distress, Decreased Breath Sounds Cardiovascular: Regular Rate, Rhythm, No Edema, No Gallop, No JVD, No Murmur, Normal Peripheral Pulses Gastrointestinal: Normal Bowel Sounds, No Organomegaly, No Pulsatile Mass, Non Tender, Soft Back: Normal Inspection, No CVA Tenderness, No Vertebral Tenderness Extremity: Normal Capillary Refill, Normal Inspection, Normal Range of Motion, Non Tender, No Calf Tenderness, No Pedal Edema Neurologic/Psychiatric: Alert, Oriented x3, No Motor/Sensory Deficits (except left arm and left leg 2-3/5), Normal Mood/Affect, prehemmer II-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 FIM Transfers Therapy Code Descriptions/Definitions Functional [place] Measure: 0=Not Assessed/NA 4=Minimal Assistance 1=Total Assistance 5=Supervision or Setup 2=Maximal Assistance 6=Modified [place] 3=Moderate Assistance 7=Complete IndependenceSCALE: Activities may be completed with or without assistive devices. 4-Ejutzhubuv-jbiljxm completes the activity by him/herself with no assistance from a helper. 5-Set-up or Clean-up Assistance-helper sets up or cleans up; patient completes activity. [place] assists only prior to or following the activity. 4-Supervision or Touching Assistance-helper provides verbal cues and/or touching/steadying and/or contact guard assistance as patient completes activity. Assistance may be provided throughout the activity or intermittently. 3-Partial/Moderate Assistance-helper does LESS THAN HALF the effort. [place] lifts, holds or supports trunk or limbs, but provides less than half the effort. 2-Substantial/Maximal Assistance-helper does MORE THAN HALF the effort. [place] lifts or holds trunk or limbs and provides more than half the effort. 8-Ariwamyah-rzzvxq does ALL the effort. Patient does none of the effort to complete the activity. Or, the assistance of 2 or more helpers is required for the patient to complete the activity. If activity was not attempted, code reason: 7-Patient Refused. 9-Not Applicable-not attempted and the patient did not perform the activity before the current illness, exacerbation or injury. 10-Not Attempted due to Environmental Limitations-(lack of equipment, weather restraints, etc.). 88-Not Attempted due to Medical Conditions or Safety Concerns. Roll Left to Right (QC): 2 Sit to Lying (QC): 2 Sit to Stand (QC): 3 Chair/Fde-bq-Uwgit Xfer(QC): 2 Car Transfer (QC): 88 Gait Training Does the Patient Walk?: Yes Walk 10 feet (QC): 88 Walk 50 ft with 2 Turns(QC): 88 Walk 150 ft (QC): 88 Walking 10ft/uneven surface-QC: 88 Gait Assistive Device: Handheld Assist Wheelchair Training Does the Pt Use a Wheelchair?: Yes Wheel 50 ft with 2 turns (QC): 2 Wheel 150 ft (QC): 09 Type of Wheelchair: Manual Stair Training 1 Step (curb) (QC): 88 4 Steps (QC): 88 12 Steps (QC): 88 Balance Picking up an Object (QC): 88 ADL-Treatment Eating (QC): 6 Oral Hygiene (QC): 6 (with pt in w/c in front of sink, pt able to utilze BUE for prepping of toothbrush/ toothpaste. Pt utilizes RUE to guide LUE toward water to turn on / off water. Pt completes with IND while seated.) Bathing Location: L Arm, R Arm, L Upper Leg, R Upper Leg, Chest, Abdomen Shower/Bathe Self (QC): 7 Upper Body Dressing (QC): 4 Lower Body Dressing (QC): 2 (Pt attempts pulling breif down, requires assist in stance with L side to pull to completion. Requires max A to right self while bending over. Pt doffs with education and successful completion with dressing stick. Dons breif over feet with education and use of theater education teacher. Pt requires max A to pull up over hips on L side and maintain balance. ) On/Off Footwear (QC): 1 Toileting Hygiene (QC): 4 (Pt able to complete yudelka hygiene. Bottom wiping with max A. ) Toilet Transfer (QC): 2 (Pt sit to stand from bed with CGA, pt ambulates 2 steps with walker use and min A for righting balance to BSC placed on R side. ) Assessment/Plan Assessment and Plan Assess & Plan/Chief Complaint Assessment: CVA w/left sided weakness Current smoker COPD Cognitive deficit HTN DM Periodic N/V chronic TIA 05/05 Constipation Plan: Tely IRF protocol N/V management Hold Metformin BM regimen to increase (1) CVA (cerebral vascular accident) (2) Left-sided weakness (3) Tobacco abuse Status: Chronic (4) Stroke Status: Acute (5) DVT prophylaxis Status: Acute (6) COPD (chronic obstructive pulmonary disease) (7) Diabetes (8) Hyperlipemia (9) Hypertension (10) Leukocytosis Status: Acute (11) Hyponatremia Status: Acute (12) Smoker SUNNY ANDERSON DO Oct 12, 2019 11:35
--- NOTE | 2019-10-12 14:01 | Physical Therapy Daily Note ---
PT Daily Note-Current Subjective Pt. up in recliner and states she is exhausted and wants to go to bed. Agrees to sit to stands and some exercise Pain Location: No Pain Reported Mental Status Patient Orientation: Normal For Age Attachments: Oxygen Transfers SCALE: Activities may be completed with or without assistive devices. 9-Folmdlhldi-pqyliov completes the activity by him/herself with no assistance from a helper. 5-Set-up or Clean-up Assistance-helper sets up or cleans up; patient completes activity. [place] assists only prior to or following the activity. 4-Supervision or Touching Assistance-helper provides verbal cues and/or touching/steadying and/or contact guard assistance as patient completes activity . Assistance may be provided throughout the activity or intermittently. 3-Partial/Moderate Assistance-helper does LESS THAN HALF the effort. [place] lifts, holds or supports trunk or limbs, but provides less than half the effort. 2-Substantial/Maximal Assistance-helper does MORE THAN HALF the effort. [place] lifts or holds trunk or limbs and provides more than half the effort. 2-Phsapiecp-rrtezb does ALL the effort. Patient does none of the effort to complete the activity. Or, the assistance of 2 or more helpers is required for the patient to complete the activity. If activity was not attempted, code reason: 7-Patient Refused. 9-Not Applicable-not attempted and the patient did not perform the activity before the current illness, exacerbation or injury. 10-Not Attempted due to Environmental Limitations-(lack of equipment, weather restraints, etc.). 88-Not Attempted due to Medical Conditions or Safety Concerns. sit to stand mod assist. SPT recliner to bed mod to min assist, max to mod viviana t LEs in to bed sit to supine Weight Bearing Right Lower Extremity: Right Full Weight Bearing Left Lower Extremity: Left Full Weight Bearing Exercises Seated Therapy Exercises: Sit to stand, Long arc quads, Hip abd/add Seated Reps: 10 Assessment Current Status: Good Progress fatigued with activity PT Long-Term Goals Long-Term Goals PT Information Strategist Goals Time Frame: Oct 30, 2019 Roll Left & Right (QC): 6 Sit to Lying (QC): 6 Lying-Sitting on Side/Bed(QC): 6 Sit to Stand (QC): 6 Chair/Kgr-hq-Duhld Xfer(QC): 6 Toilet Transfer (QC): 6 Car Transfer (QC): 6 Does the Patient Walk: Yes Walk 10 feet (QC): 6 Walk 50ft with 2 Turns (QC): 6 Walk 150 ft (QC): 6 Walking 10ft on Uneven Surface: 6 1 Step (curb) (QC): 6 4 Steps (QC): 6 12 Steps (QC): 6 Picking up an Object (QC): 6 Does the Pt use WC or Scooter?: No Wheel 50 feet with 2 turns (QC: 09 Wheel 150 feet: 09 PT Plan Treatment/Plan Treatment Plan: Continue Plan of Care Treatment Plan: Bed Mobility, Concurrent Therapy, Education, Functional Activity Marjorie, Functional Strength, Group Therapy, Gait, Safety, Therapeutic Exercise, Transfers Treatment Duration: Oct 30, 2019 Frequency: 6 times per week Estimated Hrs Per Day: 1.5 hours per day Patient and/or Family Agrees t: Yes Safety Risks/Education Patient Education: Transfer Techniques, Correct Positioning, Disease Process, Safety Issues Teaching Recipient: Patient Teaching Methods: Demonstration, Discussion Response to Teaching: Verbalize Understanding, Return Demonstration, Reinforcement Needed Time/GCodes Time In: 1330 Time Out: 1400 Total Billed Treatment Time: 30 Total Billed Treatment 1,FA30m ELISABETH PARRA EMS DRIVER Oct 12, 2019 14:01
[2019-10-12 16:30] VITALS: BP 139/77
[2019-10-12] MEDS: MULTIVIT W/MINERALS TAB (THERAGRAN M) PO SCH (21:27)
[2019-10-12] MEDS: MELATONIN 3 MG TABLET PO PRN (21:28)
[2019-10-12] MEDS: ASPIRIN E.C. 81 MG (ECOTRIN) TAB PO SCH (21:33)
--- NOTE | 2019-10-12 23:27 | NUR ---
PATIENT LAST BOWEL MOVEMENT WAS 10/08/19. PATIENT WAS GIVEN SCHEDULED STOOL SOFTENERS AND LAXATIVES. PATIENT STRONGLY REFUSED TO TAKE ANY PRN LAXATIVES.
[2019-10-13] MEDS: inSUlin ASPART (NovoLOG) 1 UNIT/0.01 ML (CHARGE PER UNIT) SC SCH ×4 (05:13→21:30)
[2019-10-13 05:16] VITALS: BP 155/78
[2019-10-13] MEDS: LEVOTHYROXINE 75 MCG (LEVOTHROID) TABLET PO SCH (06:33)
[2019-10-13] MEDS: LEVOTHYROXINE 100 MCG (LEVOTHROID) TAB PO SCH (06:33)
--- NOTE | 2019-10-13 06:46 | NUR ---
PATIENT HAD NO BOWEL MOVEMENT THROUGH THE NIGHT. THIS NURSE EDUCATED PATIENT ON THE IMPORTANCE OF REGULAR BOWEL MOVEMENTS. PATIENT VERBALIZED UNDERSTANDING, BUT ADAMANTLY REFUSED TO TAKE ANY LAXATIVES THIS A.M. AGAIN.
[2019-10-13] MEDS: RT-ALBUTEROL/IPRATROPIUM 3 ML (DUONEB) VIAL INH SCH ×4 (06:57→18:10)
[2019-10-13] MEDS: DOCUSATE SODIUM 100 MG (COLACE) CAP PO SCH ×2 (08:33→20:17)
[2019-10-13] MEDS: SENNA W/DOCUSATE (SENOKOT S) TABLET PO SCH ×2 (08:33→20:17)
[2019-10-13] MEDS: CLOPIDOGREL 75 MG (PLAVIX) TABLET PO SCH (08:33)
[2019-10-13] MEDS: lisINopril 40 MG (PRINIVIL) TABLET PO SCH (08:33)
[2019-10-13] MEDS: VITAMIN D3 25 MCG (1,000 UNITS) TABLET PO SCH ×3 (08:33→20:17)
[2019-10-13] MEDS: PANTOPRAZOLE 40 MG (PROTONIX) TAB PO SCH (08:33)
[2019-10-13] MEDS: OMEGA 3 (FISH OIL) 1000 MG CAP PO SCH (08:33)
[2019-10-13] MEDS: PIOGLITAZONE 30MG (ACTOS) TAB PO SCH (08:33)
[2019-10-13] MEDS: polyethylene glycoL POWDER 17 GM (MIRALAX) PACK PO SCH ×2 (08:43→21:29)
[2019-10-13] MEDS: ENOXAPARIN 40 MG/0.4 ML (LOVENOX) SYR SC SCH ×2 (08:44→20:18)
--- NOTE | 2019-10-13 11:22 | PM&R Progress Note ---
Subjective HPI/CC On Admission Date Seen by Provider: Oct 13, 2019 Time Seen by Provider: 11:30 Subjective/Events-last exam BM 5 days ago and will initiate suppository and Fleets if needed to get that started again No pain is reported No N/V reported maintained on PPI and held Metformin Sugars are good Left shoulder still sore and limited from CVA Inconsistent with her abilities and activities Tely maintained Seems improved overall and she thinks that too Getting OOB with only 1 assist today which is improved Checked med and labs Conferred with RN Reviewed therapy notes Review of Systems General: Fatigue Neurological: Weakness, Numbness, Incoordination Objective Exam Vital Signs Vital Signs Date Time Temp Pulse Resp B/P (MAP) Pulse Ox O2 Delivery O2 Flow Rate FiO2 10/13/19 14:18 93 Nasal Cannula 3.00 10/13/19 13:00 89 10/13/19 05:16 36.0 16 155/78 (103) 10/09/19 17:25 28 Capillary Refill : Less Than 3 Seconds General Appearance: No Apparent Distress, WD/WN, Chronically ill, Obese HEENT: PERRL/EOMI, Normal ENT Inspection, Pharynx Normal Neck: Full Range of Motion, Normal Inspection, Non Tender, Supple, Carotid Bruit Respiratory: Chest Non Tender, Lungs Clear, Normal Breath Sounds, No Accessory Muscle Use, No Respiratory Distress, Decreased Breath Sounds Cardiovascular: Regular Rate, Rhythm, No Edema, No Gallop, No JVD, No Murmur, Normal Peripheral Pulses Gastrointestinal: Normal Bowel Sounds, No Organomegaly, No Pulsatile Mass, Non Tender, Soft Back: Normal Inspection, No CVA Tenderness, No Vertebral Tenderness Extremity: Normal Capillary Refill, Normal Inspection, Normal Range of Motion, Non Tender, No Calf Tenderness, No Pedal Edema Neurologic/Psychiatric: Alert, Oriented x3, No Motor/Sensory Deficits (except left arm and left leg 2-3/5), Normal Mood/Affect, karate teacher II-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 FIM Transfers Therapy Code Descriptions/Definitions Functional [place] Measure: 0=Not Assessed/NA 4=Minimal Assistance 1=Total Assistance 5=Supervision or Setup 2=Maximal Assistance 6=Modified [place] 3=Moderate Assistance 7=Complete IndependenceSCALE: Activities may be completed with or without assistive devices. 8-Iuoufofdcf-aafrimk completes the activity by him/herself with no assistance from a helper. 5-Set-up or Clean-up Assistance-helper sets up or cleans up; patient completes activity. [place] assists only prior to or following the activity. 4-Supervision or Touching Assistance-helper provides verbal cues and/or touching/steadying and/or contact guard assistance as patient completes activity. Assistance may be provided throughout the activity or intermittently. 3-Partial/Moderate Assistance-helper does LESS THAN HALF the effort. [place] lifts, holds or supports trunk or limbs, but provides less than half the effort. 2-Substantial/Maximal Assistance-helper does MORE THAN HALF the effort. [place] lifts or holds trunk or limbs and provides more than half the effort. 3-Gmsdtzppy-hbcott does ALL the effort. Patient does none of the effort to complete the activity. Or, the assistance of 2 or more helpers is required for the patient to complete the activity. If activity was not attempted, code reason: 7-Patient Refused. 9-Not Applicable-not attempted and the patient did not perform the activity before the current illness, exacerbation or injury. 10-Not Attempted due to Environmental Limitations-(lack of equipment, weather restraints, etc.). 88-Not Attempted due to Medical Conditions or Safety Concerns. Roll Left to Right (QC): 2 Sit to Lying (QC): 2 Sit to Stand (QC): 3 Chair/Qwb-um-Wxlkm Xfer(QC): 2 Car Transfer (QC): 88 Gait Training Does the Patient Walk?: Yes Walk 10 feet (QC): 88 Walk 50 ft with 2 Turns(QC): 88 Walk 150 ft (QC): 88 Walking 10ft/uneven surface-QC: 88 Gait Assistive Device: Handheld Assist Wheelchair Training Does the Pt Use a Wheelchair?: Yes Wheel 50 ft with 2 turns (QC): 2 Wheel 150 ft (QC): 09 Type of Wheelchair: Manual Stair Training 1 Step (curb) (QC): 88 4 Steps (QC): 88 12 Steps (QC): 88 Balance Picking up an Object (QC): 88 ADL-Treatment Eating (QC): 6 Oral Hygiene (QC): 6 (with pt in w/c in front of sink, pt able to utilze BUE for prepping of toothbrush/ toothpaste. Pt utilizes RUE to guide LUE toward water to turn on / off water. Pt completes with IND while seated.) Bathing Location: L Arm, R Arm, L Upper Leg, R Upper Leg, Chest, Abdomen Shower/Bathe Self (QC): 7 Upper Body Dressing (QC): 4 Lower Body Dressing (QC): 2 (Pt attempts pulling breif down, requires assist in stance with L side to pull to completion. Requires max A to right self while bending over. Pt doffs with education and successful completion with dressing stick. Dons breif over feet with education and use of wagon washer. Pt requires max A to pull up over hips on L side and maintain balance. ) On/Off Footwear (QC): 1 Toileting Hygiene (QC): 4 (Pt able to complete yudelka hygiene. Bottom wiping with max A. ) Toilet Transfer (QC): 2 (Pt sit to stand from bed with CGA, pt ambulates 2 steps with walker use and min A for righting balance to BSC placed on R side. ) Assessment/Plan Assessment and Plan Assess & Plan/Chief Complaint Assessment: CVA w/left sided weakness Current smoker COPD Cognitive deficit HTN DM Periodic N/V chronic TIA 05/05 Constipation Plan: Tely IRF protocol N/V management Hold Metformin BM regimen to increase (1) CVA (cerebral vascular accident) (2) Left-sided weakness (3) Tobacco abuse Status: Chronic (4) Stroke Status: Acute (5) DVT prophylaxis Status: Acute (6) COPD (chronic obstructive pulmonary disease) (7) Diabetes (8) Hyperlipemia (9) Hypertension (10) Leukocytosis Status: Acute (11) Hyponatremia Status: Acute (12) Smoker SUNNY ANDERSON DO Oct 13, 2019 11:22
--- NOTE | 2019-10-13 12:15 | Physical Therapy Daily Note ---
PT Daily Note-Current Subjective Pt L sidelying positioned with pillows upon arrival. Pt agrees to Ex. Mental Status Patient Orientation: Person, Place Attachments: Oxygen Transfers SCALE: Activities may be completed with or without assistive devices. 0-Lssbaqdmvi-vyzcgws completes the activity by him/herself with no assistance from a helper. 5-Set-up or Clean-up Assistance-helper sets up or cleans up; patient completes activity. [place] assists only prior to or following the activity. 4-Supervision or Touching Assistance-helper provides verbal cues and/or touching/steadying and/or contact guard assistance as patient completes acti vity. Assistance may be provided throughout the activity or intermittently. 3-Partial/Moderate Assistance-helper does LESS THAN HALF the effort. [place] lifts, holds or supports trunk or limbs, but provides less than half the effort. 2-Substantial/Maximal Assistance-helper does MORE THAN HALF the effort. [place] lifts or holds trunk or limbs and provides more than half the effort. 2-Irygxyhnj-qkqzfu does ALL the effort. Patient does none of the effort to complete the activity. Or, the assistance of 2 or more helpers is required for the patient to complete the activity. If activity was not attempted, code reason: 7-Patient Refused. 9-Not Applicable-not attempted and the patient did not perform the activity before the current illness, exacerbation or injury. 10-Not Attempted due to Environmental Limitations-(lack of equipment, weather restraints, etc.). 88-Not Attempted due to Medical Conditions or Safety Concerns. Weight Bearing Right Lower Extremity: Right Full Weight Bearing Left Lower Extremity: Left Full Weight Bearing Exercises Supine Ex: Ankle pumps, Quad Set, Glut sets, Heel Slides, Straight leg raise, Hip abd/add Supine Reps: 15 Seated Therapy Exercises: Ankle pumps, Long arc quads, Hip flexion, Kicking activity Seated Reps: 15 Treatments BORING MACHINE OPERATOR DOUBLE END & pt review written HEP for Supine & Seated Ex. Pt resting at end of Rx with all needs met, call light in hand. Dr Gutiérrez present. Assessment Current Status: Fair Progress Pt tolerated Rx well. PT Grief Counselor Goals Grief Counselor Goals PT Longterm Goals Time Frame: Oct 30, 2019 Roll Left & Right (QC): 6 Sit to Lying (QC): 6 Lying-Sitting on Side/Bed(QC): 6 Sit to Stand (QC): 6 Chair/Jrp-dh-Eofnl Xfer(QC): 6 Toilet Transfer (QC): 6 Car Transfer (QC): 6 Does the Patient Walk: Yes Walk 10 feet (QC): 6 Walk 50ft with 2 Turns (QC): 6 Walk 150 ft (QC): 6 Walking 10ft on Uneven Surface: 6 1 Step (curb) (QC): 6 4 Steps (QC): 6 12 Steps (QC): 6 Picking up an Object (QC): 6 Does the Pt use WC or Scooter?: No Wheel 50 feet with 2 turns (QC: 09 Wheel 150 feet: 09 PT Plan Problem List Problem List: Activity Tolerance, Functional Strength, Safety, Transfer Treatment/Plan Treatment Plan: Continue Plan of Care Treatment Plan: Bed Mobility, Concurrent Therapy, Education, Functional Activity Marjorie, Functional Strength, Group Therapy, Gait, Safety, Therapeutic Exercise, Transfers Treatment Duration: Oct 30, 2019 Frequency: 6 times per week Estimated Hrs Per Day: 1.5 hours per day Patient and/or Family Agrees t: Yes Safety Risks/Education Patient Education: Transfer Techniques, Correct Positioning, Safety Issues Teaching Methods: Discussion Response to Teaching: Verbalize Understanding Time/GCodes Time In: 1125 Time Out: 1145 Total Billed Treatment Time: 20 Total Billed Treatment 1, EX (20m) DAX COBURN PTA Oct 13, 2019 12:15
[2019-10-13] MEDS: HYDROcodone/APAP 5 MG/325 MG (LORTAB) TAB PO PRN (16:11)
[2019-10-13 16:30] VITALS: BP 114/77
[2019-10-13 18:00] VITALS: BP 120/80
[2019-10-13] MEDS: ASPIRIN E.C. 81 MG (ECOTRIN) TAB PO SCH (20:17)
[2019-10-13] MEDS: MULTIVIT W/MINERALS TAB (THERAGRAN M) PO SCH (20:17)
--- NOTE | 2019-10-13 21:00 | NUR ---
5TH DAY WITHOUT BM. AGREED TO TAKE 2 SOFTENERS AND PRUNE JUICE. AGAIN REFUSED MIRALAX AND SUPPOSITORY. WILL TRY AGAIN IN AM. DOES NOT LIKE TO TURN - STATES ONLY COMFORTABLE ON BACK. AGREED TO TURN TO LEFT SIDE WITH MUCH PERSUASION.
[2019-10-14 06:00] VITALS: BP 164/81
[2019-10-14] MEDS: inSUlin ASPART (NovoLOG) 1 UNIT/0.01 ML (CHARGE PER UNIT) SC SCH ×4 (06:00→21:13)
[2019-10-14] MEDS: LEVOTHYROXINE 75 MCG (LEVOTHROID) TABLET PO SCH (06:00)
[2019-10-14] MEDS: LEVOTHYROXINE 100 MCG (LEVOTHROID) TAB PO SCH (06:00)
[2019-10-14] MEDS: RT-ALBUTEROL/IPRATROPIUM 3 ML (DUONEB) VIAL INH SCH ×4 (07:00→22:24)
[2019-10-14] MEDS: PIOGLITAZONE 30MG (ACTOS) TAB PO SCH (09:39)
[2019-10-14] MEDS: OMEGA 3 (FISH OIL) 1000 MG CAP PO SCH (09:39)
[2019-10-14] MEDS: PANTOPRAZOLE 40 MG (PROTONIX) TAB PO SCH (09:39)
[2019-10-14] MEDS: CLOPIDOGREL 75 MG (PLAVIX) TABLET PO SCH (09:39)
[2019-10-14] MEDS: VITAMIN D3 25 MCG (1,000 UNITS) TABLET PO SCH ×3 (09:39→21:14)
[2019-10-14] MEDS: ENOXAPARIN 40 MG/0.4 ML (LOVENOX) SYR SC SCH ×2 (09:41→21:13)
[2019-10-14] MEDS: polyethylene glycoL POWDER 17 GM (MIRALAX) PACK PO SCH ×2 (09:43→21:12)
[2019-10-14] MEDS: DOCUSATE SODIUM 100 MG (COLACE) CAP PO SCH ×2 (09:43→21:11)
[2019-10-14] MEDS: lisINopril 40 MG (PRINIVIL) TABLET PO SCH (09:44)
[2019-10-14] MEDS: SENNA W/DOCUSATE (SENOKOT S) TABLET PO SCH ×2 (09:45→21:12)
--- NOTE | 2019-10-14 12:05 | PM&R Progress Note ---
Subjective HPI/CC On Admission Date Seen by Provider: Oct 14, 2019 Time Seen by Provider: 12:00 Subjective/Events-last exam BM large after prune juice and laxatives resulted in complete evacuation No pain is reported Fatigues easily Much better movements today and seems to be improving left side Checked BP Overall positive improvements and she seems to be happy about that Checked med and labs Conferred with RN Reviewed therapy notes Review of Systems General: Fatigue Neurological: Weakness, Numbness, Incoordination Objective Exam Vital Signs Vital Signs Date Time Temp Pulse Resp B/P (MAP) Pulse Ox O2 Delivery O2 Flow Rate FiO2 10/14/19 19:00 75 10/14/19 18:30 36.2 18 132/88 (103) 95 Nasal Cannula 3.00 10/09/19 17:25 28 Capillary Refill : Less Than 3 Seconds General Appearance: No Apparent Distress, WD/WN, Chronically ill, Obese HEENT: PERRL/EOMI, Normal ENT Inspection, Pharynx Normal Neck: Full Range of Motion, Normal Inspection, Non Tender, Supple, Carotid Bruit Respiratory: Chest Non Tender, Lungs Clear, Normal Breath Sounds, No Accessory Muscle Use, No Respiratory Distress, Decreased Breath Sounds Cardiovascular: Regular Rate, Rhythm, No Edema, No Gallop, No JVD, No Murmur, Normal Peripheral Pulses Gastrointestinal: Normal Bowel Sounds, No Organomegaly, No Pulsatile Mass, Non Tender, Soft Back: Normal Inspection, No CVA Tenderness, No Vertebral Tenderness Extremity: Normal Capillary Refill, Normal Inspection, Normal Range of Motion, Non Tender, No Calf Tenderness, No Pedal Edema Neurologic/Psychiatric: Alert, Oriented x3, No Motor/Sensory Deficits (except left arm and left leg 2-3/5), Normal Mood/Affect, management intern II-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 FIM Transfers Therapy Code Descriptions/Definitions Functional [place] Measure: 0=Not Assessed/NA 4=Minimal Assistance 1=Total Assistance 5=Supervision or Setup 2=Maximal Assistance 6=Modified [place] 3=Moderate Assistance 7=Complete IndependenceSCALE: Activities may be completed with or without assistive devices. 8-Loivjxjuej-ligyqjx completes the activity by him/herself with no assistance from a helper. 5-Set-up or Clean-up Assistance-helper sets up or cleans up; patient completes activity. [place] assists only prior to or following the activity. 4-Supervision or Touching Assistance-helper provides verbal cues and/or touching/steadying and/or contact guard assistance as patient completes activity. Assistance may be provided throughout the activity or intermittently. 3-Partial/Moderate Assistance-helper does LESS THAN HALF the effort. [place] lifts, holds or supports trunk or limbs, but provides less than half the effort. 2-Substantial/Maximal Assistance-helper does MORE THAN HALF the effort. [place] lifts or holds trunk or limbs and provides more than half the effort. 6-Prjsypwse-olpvbk does ALL the effort. Patient does none of the effort to com plete the activity. Or, the assistance of 2 or more helpers is required for the patient to complete the activity. If activity was not attempted, code reason: 7-Patient Refused. 9-Not Applicable-not attempted and the patient did not perform the activity before the current illness, exacerbation or injury. 10-Not Attempted due to Environmental Limitations-(lack of equipment, weather restraints, etc.). 88-Not Attempted due to Medical Conditions or Safety Concerns. Roll Left to Right (QC): 2 Sit to Lying (QC): 2 Sit to Stand (QC): 3 Chair/Abg-xx-Urlpb Xfer(QC): 2 Car Transfer (QC): 88 Gait Training Does the Patient Walk?: Yes Walk 10 feet (QC): 88 Walk 50 ft with 2 Turns(QC): 88 Walk 150 ft (QC): 88 Walking 10ft/uneven surface-QC: 88 Gait Assistive Device: Handheld Assist Wheelchair Training Does the Pt Use a Wheelchair?: Yes Wheel 50 ft with 2 turns (QC): 2 Wheel 150 ft (QC): 09 Type of Wheelchair: Manual Stair Training 1 Step (curb) (QC): 88 4 Steps (QC): 88 12 Steps (QC): 88 Balance Picking up an Object (QC): 88 ADL-Treatment Eating (QC): 6 Oral Hygiene (QC): 6 (with pt in w/c in front of sink, pt able to utilze BUE for prepping of toothbrush/ toothpaste. Pt utilizes RUE to guide LUE toward water to turn on / off water. Pt completes with IND while seated.) Bathing Location: L Arm, R Arm, L Upper Leg, R Upper Leg, Chest, Abdomen Shower/Bathe Self (QC): 7 Upper Body Dressing (QC): 4 Lower Body Dressing (QC): 2 (Pt attempts pulling breif down, requires assist in stance with L side to pull to completion. Requires max A to right self while b ending over. Pt doffs with education and successful completion with dressing stick. Dons breif over feet with education and use of nocturnist. Pt requires max A to pull up over hips on L side and maintain balance. ) On/Off Footwear (QC): 1 Toileting Hygiene (QC): 4 (Pt able to complete yduelka hygiene. Bottom wiping with max A. ) Toilet Transfer (QC): 2 (Pt sit to stand from bed with CGA, pt ambulates 2 steps with walker use and min A for righting balance to BSC placed on R side. ) Assessment/Plan Assessment and Plan Assess & Plan/Chief Complaint Assessment: CVA w/left sided weakness Current smoker COPD Cognitive deficit HTN DM Periodic N/V chronic TIA 05/05 Constipation resolved 10/14/19 Plan: Tely IRF protocol N/V management Hold Metformin BM regimen to maintain (1) CVA (cerebral vascular accident) (2) Left-sided weakness (3) Tobacco abuse Status: Chronic (4) Stroke Status: Acute (5) DVT prophylaxis Status: Acute (6) COPD (chronic obstructive pulmonary disease) (7) Diabetes (8) Hyperlipemia (9) Hypertension (10) Leukocytosis Status: Acute (11) Hyponatremia Status: Acute (12) Smoker SUNNY ANDERSON DO Oct 14, 2019 12:05
[2019-10-14] MEDS: ACETAMINOPHEN 500 MG TAB (TYLENOL) PO PRN (13:53)
[2019-10-14 18:30] VITALS: BP 132/88
[2019-10-14] MEDS: ASPIRIN E.C. 81 MG (ECOTRIN) TAB PO SCH (21:14)
[2019-10-14] MEDS: MULTIVIT W/MINERALS TAB (THERAGRAN M) PO SCH (21:14)
[2019-10-15 05:56] VITALS: BP 149/84
[2019-10-15] MEDS: LEVOTHYROXINE 100 MCG (LEVOTHROID) TAB PO SCH (06:41)
[2019-10-15] MEDS: LEVOTHYROXINE 75 MCG (LEVOTHROID) TABLET PO SCH (06:41)
[2019-10-15] MEDS: inSUlin ASPART (NovoLOG) 1 UNIT/0.01 ML (CHARGE PER UNIT) SC SCH ×4 (07:31→21:10)
[2019-10-15] MEDS: RT-ALBUTEROL/IPRATROPIUM 3 ML (DUONEB) VIAL INH SCH ×4 (07:41→18:26)
[2019-10-15 07:47] LABS: BASOPHILS # (AUTO) 0.1 10^3/uL (0.0-0.1); BASOPHILS % (AUTO) 1 % (0-10); EOSINOPHILS # (AUTO) 0.3 10^3/uL (0.0-0.3); EOSINOPHILS % (AUTO) 3 % (0-10); HEMATOCRIT 44 % (35-52); HEMOGLOBIN 14.5 G/DL (11.5-16.0); LYMPHOCYTES # (AUTO) 2.3 X 10^3 (1.0-4.0); LYMPHOCYTES % (AUTO) 21 % (12-44); MEAN CORPUSCULAR HEMOGLOBIN 30 PG (25-34); MEAN CORPUSCULAR HGB CONC 33 G/DL (32-36); MEAN CORPUSCULAR VOLUME 89 FL (80-99); MEAN PLATELET VOLUME 10.8 FL (7.4-10.4); MONOCYTES # (AUTO) 1.2 X 10^3 (0.0-1.0); MONOCYTES % (AUTO) 11 % (0-12); NEUTROPHILS # (AUTO) 7.1 X 10^3 (1.8-7.8); NEUTROPHILS % (AUTO) 65 % (42-75); PLATELET COUNT 383 10^3/uL (130-400); RED CELL DISTRIBUTION WIDTH 14.4 % (10.0-14.5)
[2019-10-15 08:16] LABS: ALANINE AMINOTRANSFERASE 19 U/L (0-55); ALBUMIN 4.1 GM/DL (3.2-4.5); ALKALINE PHOSPHATASE 89 U/L (40-136); BILIRUBIN,TOTAL 0.3 MG/DL (0.1-1.0); BUN/CREATININE RATIO 15; CALCIUM 9.4 MG/DL (8.5-10.1); CARBON DIOXIDE 27 MMOL/L (21-32); CHLORIDE 93 MMOL/L (98-107); CREATININE SERUM 0.72 MG/DL (0.60-1.30); GFR ESTIMATED > 60; GLUCOSE 137 MG/DL (70-105); POTASSIUM 4.7 MMOL/L (3.6-5.0); SODIUM 130 MMOL/L (135-145); TOTAL PROTEIN 7.1 GM/DL (6.4-8.2)
[2019-10-15] MEDS: PANTOPRAZOLE 40 MG (PROTONIX) TAB PO SCH (09:25)
[2019-10-15] MEDS: VITAMIN D3 25 MCG (1,000 UNITS) TABLET PO SCH ×3 (09:25→20:50)
[2019-10-15] MEDS: PIOGLITAZONE 30MG (ACTOS) TAB PO SCH (09:27)
[2019-10-15] MEDS: CLOPIDOGREL 75 MG (PLAVIX) TABLET PO SCH (09:27)
[2019-10-15] MEDS: lisINopril 40 MG (PRINIVIL) TABLET PO SCH (09:27)
[2019-10-15] MEDS: OMEGA 3 (FISH OIL) 1000 MG CAP PO SCH (09:27)
[2019-10-15] MEDS: DOCUSATE SODIUM 100 MG (COLACE) CAP PO SCH ×2 (09:28→20:58)
[2019-10-15] MEDS: SENNA W/DOCUSATE (SENOKOT S) TABLET PO SCH ×2 (09:28→20:59)
[2019-10-15] MEDS: polyethylene glycoL POWDER 17 GM (MIRALAX) PACK PO SCH ×2 (09:28→20:58)
--- NOTE | 2019-10-15 10:03 | Physical Therapy Daily Note ---
PT Daily Note-Current Subjective Pt. agrees to Rx . Feels she has made good progress. Forgetful of cues and instruction just given and gets somewhat frustrated when reviewed . Pain Location: No Pain Reported Mental Status Patient Orientation: Person, Place Attachments: Oxygen (.5 L) Transfers SCALE: Activities may be completed with or without assistive devices. 4-Lxbhuilidj-cytehtk completes the activity by him/herself with no assistance from a helper. 5-Set-up or Clean-up Assistance-helper sets up or cleans up; patient completes activity. [place] assists only prior to or following the activity. 4-Supervision or Touching Assistance-helper provides verbal cues and/or touching/steadying and/or contact guard assistance as patient completes activity. Assistance may be provided throughout the activity or intermittently. 3-Partial/Moderate Assistance-helper does LESS THAN HALF the effort. [place] lifts, holds or supports trunk or limbs, but provides less than half the effort. 2-Substantial/Maximal Assistance-helper does MORE THAN HALF the effort. [place] lifts or holds trunk or limbs and provides more than half the effort. 0-Ousgqucyr-jwhsrs does ALL the effort. Patient does none of the effort to complete the activity. Or, the assistance of 2 or more helpers is required for the patient to complete the activity. If activity was not attempted, code reason: 7-Patient Refused. 9-Not Applicable-not attempted and the patient did not perform the activity before the current illness, exacerbation or injury. 10-Not Attempted due to Environmental Limitations-(lack of equipment, weather restraints, etc.). 88-Not Attempted due to Medical Conditions or Safety Concerns. Roll Left & Right (QC): 4 Sit to Lying (QC): 4 Lying to Sitting/Side of Bed(Q: 4 Sit to Stand (QC): 4 Chair/Szq-vn-Htenc Xfer(QC): 3 significant time spent instructing in safety and technique of TRFs left and right and sup to sit and sit to sup. Pt. needs instruction frequently for safety Weight Bearing Right Lower Extremity: Right Full Weight Bearing Left Lower Extremity: Left Full Weight Bearing Gait Training Does the Patient Walk?: Yes Walk 10 feet (QC): 3 Gait Persons Needed: 1 Gait Assistive Device: FWW w/c to follow, pt. is frequently frustrated by instruction to slow down, take gait and TRF step by step etc. left knee melts and clementina 50% of time and pt attempts to proceed in advancing her right LE anyway. Much attention given to safety etc Wheelchair Training Does the Pt Use a Wheelchair?: Yes Wheel 50 ft with 2 turns (QC): 4 Type of Wheelchair: Manual needs assist to brake, cues to keep left foot moving or elevated as well as to grasp left w/c rung with left hand Exercises Supine Ex: Bridging, Ankle pumps, Quad Set, Rolling, Glut sets, Heel Slides, Scooting, Straight leg raise, Hip abd/add Supine Reps: 15 Seated Therapy Exercises: Ankle pumps, Sit to stand, Long arc quads, Hip flexion Seated Reps: 15 Assessment Current Status: Good Progress PT Criminal Investigator Customs Goals Residential Goals PT Residential Goals Time Frame: Oct 30, 2019 Roll Left & Right (QC): 6 Sit to Lying (QC): 6 Lying-Sitting on Side/Bed(QC): 6 Sit to Stand (QC): 6 Chair/Aau-vz-Nidfw Xfer(QC): 6 Toilet Transfer (QC): 6 Car Transfer (QC): 6 Does the Patient Walk: Yes Walk 10 feet (QC): 6 Walk 50ft with 2 Turns (QC): 6 Walk 150 ft (QC): 6 Walking 10ft on Uneven Surface: 6 1 Step (curb) (QC): 6 4 Steps (QC): 6 12 Steps (QC): 6 Picking up an Object (QC): 6 Does the Pt use WC or Scooter?: No Wheel 50 feet with 2 turns (QC: 09 Wheel 150 feet: 09 PT Plan Treatment/Plan Treatment Plan: Continue Plan of Care Treatment Plan: Bed Mobility, Concurrent Therapy, Education, Functional Activity Marjorie, Functional Strength, Group Therapy, Gait, Safety, Therapeutic Exercise, Transfers Treatment Duration: Oct 30, 2019 Frequency: 6 times per week Estimated Hrs Per Day: 1.5 hours per day Patient and/or Family Agrees t: Yes Safety Risks/Education Patient Education: Gait Training, Transfer Techniques, Correct Positioning, W/C Management, Disease Process, Safety Issues Teaching Recipient: Patient Teaching Methods: Demonstration, Discussion Response to Teaching: Verbalize Understanding, Return Demonstration, Reinforcement Needed Time/GCodes Time In: 900 Time Out: 1000 Total Billed Treatment Time: 60 Total Billed Treatment 1, [id number],FA15m,GT10m ELISABETH PARRA GAS OPERATIONS ANALYST Oct 15, 2019 10:03
--- NOTE | 2019-10-15 10:13 | Occupational Ther Daily Note ---
OT Current Status-Daily Note Subjective [id number]: (60) Pt seen in bed. Pt agreeable to OT tx session. Pt states, "You should see what I can do!" Pt very expressive about gains made and work completed over weekend. [id number]: (15) Pt seen supine in bed, states requested and received pain medication. pt agreeable to OT tx session. Mental Status/Objective Patient Orientation: Person, Place, Time, Situation Attachments: Oxygen, Telemetry ADL-Treatment Therapy Code Descriptions/Definitions Functional [place] Measure: 0=Not Assessed/NA 4=Minimal Assistance 1=Total Assistance 5=Supervision or Setup 2=Maximal Assistance 6=Modified [place] 3=Moderate Assistance 7=Complete IndependenceSCALE: Activities may be completed with or without assistive devices. 6-Heqbvkacqs-zrypjqh completes the activity by him/herself with no assistance from a helper. 5-Set-up or Clean-up Assistance-helper sets up or cleans up; patient completes activity. [place] assists only prior to or following the activity. 4-Supervision or Touching Assistance-helper provides verbal cues and/or touching/steadying and/or contact guard assistance as patient completes activity. Assistance may be provided throughout the activity or intermittently. 3-Partial/Moderate Assistance-helper does LESS THAN HALF the effort. [place] lifts, holds or supports trunk or limbs, but provides less than half the effort. 2-Substantial/Maximal Assistance-helper does MORE THAN HALF the effort. [place] lifts or holds trunk or limbs and provides more than half the effort. 8-Rcvmjmezj-ljxxnx does ALL the effort. Patient does none of the effort to complete the activity. Or, the assistance of 2 or more helpers is required for the patient to complete the activity. If activity was not attempted, code reason: 7-Patient Refused. 9-Not Applicable-not attempted and the patient did not perform the activity before the current illness, exacerbation or injury. 10-Not Attempted due to Environmental Limitations-(lack of equipment, weather restraints, etc.). 88-Not Attempted due to Medical Conditions or Safety Concerns. Oral Hygiene (QC): 6 (completes in recliner chair with items set in front of pt.) Bathing Location: L Arm, R Arm, L Upper Leg, R Upper Leg, L Lower Leg (including foot), R Lower Leg (including foot), Chest, Abdomen, Perineal Area Shower/Bathe Self (QC): 3 (min A for bottom throughness. Pt compeltes sponge bath in recliner/ in stance with CGA ) Upper Body Dressing (QC): 5 (s/u for 02 and telemetry) Lower Body Dressing (QC): 3 (min A- pt completes threading BLE with use of lead accountant for LLE (cues for use) and pulls to knees. Min A to right self in stance (pt compeltes sit to stand with CGA), pt requires min A for situating/ pulling up past hips on L side. Pt attempts pulling up 3x (requires sitting breaks in between due to fatigue/ decreased balance). ) On/Off Footwear: 3 (Pt completes sock doffing with IND (dressing stick use), completes sock donning with max A as pt does not wear socks at home but wears slip on slippers. ) Toileting Hygiene (QC): 2 (max A for bottom thoroughness. ) Other Treatment [id number]: (60) Pt completes bed mob with assist of HOB elevation and bed rail. Pt sits EOB with SBA. Pt sit to stand with 2WW and cues for hand placement on bed with CGA. Pt walks ~5 steps to recliner chair with CGA. Pt sits with control. Pt expresses she feels "more in control" of both LE/ UE. Pt completes hair grooming with mod A for thoroughness and ponytail and IND for oral hygiene in chair. Pt completes ADLs with increased spontaneous movement and increased AROM of LUE. Pt states, "sometimes I need a distraction," and requests TV on. Pt states she requires a "mental break" at times to reduce her thinking about LUE movements. Pt given multiple breaks due to fatigue and SOB during activities in room. Pt dresses in pants and briefs this morning. Pt educated on increase of spontaneous movement and increase of distal activity/ strength. Pt agrees, state s she completed her HEP this weekend and "has been practicing" her laboratory analyst/ pinch strengthening. Pt left in recliner with all needs met, call light in reach, chair alarm on. Pt to be seen later this day. [id number] (15): Pt states pain. Pt educated on and return-demonstrates diaphragmatic breathing techniques 5x. Pt states pain in LUE (shoulder). Pt completes forward flexion with slight crepitus, shoulder musculature palpated with no noted mm tightness. pt states pain around deltoid insertion in extreme forward flexion, no mm tightness noted. Pt educated on completing diaphragmatic breathing while massaging mm to increase mm pliability. Pt agrees, return demonstrates. Pt supine and holds shoulder in forward flexion (toward ceiling), pt's LUE batted and pt corrects to maintain forward flexion with success and no c/o pain. Pt left in room with call light in reach, all needs met. Education OT Patient Education: Correct positioning, Exercise program, Home exercise program, Modified ADL techniques, Progress toward Goal/Update tx plan, Safety issues, Transfer techniques, Use of adapted equipment Teaching Recipient: Patient Teaching Methods: Demonstration, Discussion Response to Teaching: Verbalize Understanding, Return Demonstration, Reinforcement Needed OT Short Term Goals Short Term Goals Time Frame: Oct 16, 2019 Toileting hygiene: 2 Shower/bathe self: 3 Upper body dressin Lower body dressin OT Half-Way Goals Half-Way Goals Time Frame: Oct 30, 2019 Eating (QC): 6 Oral Hygiene (QC): 6 Toileting Hygiene (QC): 5 Shower/Bathe Self (QC): 5 Upper Body Dressing (QC): 6 Lower Body Dressing (QC): 5 On/Off Footwear (QC): 5 Additional Goals: 1-Demonstrate ADL Tasks, 2-Verbalize Understanding, 3-Imp roveStrength/Marjorie 1=Demonstrate adherence to instructed precautions during ADL tasks. 2=Patient will verbalize/demonstrate understanding of assistive devices/modifications for ADL. 3=Patient will improve strength/tolerance for activity to enable patient to perform ADL's. OT Education/Plan Problem List/Assessment Assessment: Decreased Activ Tolerance, Decreased UE Strength, Dependent Transfers, Impaired Coordination, Impaired Funct Balance, Impaired I ADL's, Imp aired Self-Care Skills Discharge Recommendations Plan/Recommendations: Continue POC Therapy Discharge Recommendati: Scheduled Assistance, Assisted Living, Post Acute OT Treatment Plan/Plan of Care Treatment,Training & Education: Yes Patient would benefit from OT for education, treatment and training to promote independence in ADL's, mobility, safety and/or upper extremity function for ADL's. Plan of Care: ADL Retraining, Functional Mobility, Group Exercise/Act as Ind, UE Funct Exercise/Act, UE Neuromus Re-Ed/Coord Treatment Duration: Oct 30, 2019 Frequency: At least 5 of 7 days/Wk (IRF) Estimated Hrs Per Day: 1.5 hours per day Rehab Potential: Fair Time/GCodes Start Time: 08:00 (1315) Stop Time: 09:00 (1330) Total Time Billed (hr/min): 75 Billed Treatment Time 1, ADL 4 (60) 1, ADL (15)- worked on HEP/ pain management total: 75 BARRY BYERS OTR Oct 15, 2019 10:13
--- NOTE | 2019-10-15 10:18 | PM&R Progress Note ---
Subjective HPI/CC On Admission Date Seen by Provider: Oct 15, 2019 Time Seen by Provider: 10:15 Subjective/Events-last exam BM now on track regular No pain is reported Fatigues easily but building strength Much better movements today and seems to be improving left side and she is very optimistic about this Sodium level is 130 so increasing fluids to help her since she likes coffee Checked BP Overall positive improvements and she seems to be happy about that Checked med and labs Conferred with RN Reviewed therapy notes Review of Systems General: Fatigue Neurological: Weakness, Numbness, Incoordination Objective Exam Vital Signs Vital Signs Date Time Temp Pulse Resp B/P (MAP) Pulse Ox O2 Delivery O2 Flow Rate FiO2 10/15/19 18:26 94 Nasal Cannula 3.00 10/15/19 16:30 36.0 83 18 131/92 (105) 10/15/19 12:58 32 Capillary Refill : Less Than 3 Seconds General Appearance: No Apparent Distress, WD/WN, Chronically ill, Obese HEENT: PERRL/EOMI, Normal ENT Inspection, Pharynx Normal Neck: Full Range of Motion, Normal Inspection, Non Tender, Supple, Carotid Bruit Respiratory: Chest Non Tender, Lungs Clear, Normal Breath Sounds, No Accessory Muscle Use, No Respiratory Distress, Decreased Breath Sounds Cardiovascular: Regular Rate, Rhythm, No Edema, No Gallop, No JVD, No Murmur, Normal Peripheral Pulses Gastrointestinal: Normal Bowel Sounds, No Organomegaly, No Pulsatile Mass, Non Tender, Soft Back: Normal Inspection, No CVA Tenderness, No Vertebral Tenderness Extremity: Normal Capillary Refill, Normal Inspection, Normal Range of Motion, Non Tender, No Calf Tenderness, No Pedal Edema Neurologic/Psychiatric: Alert, Oriented x3, No Motor/Sensory Deficits (except left arm and left leg 2-3/5), Normal Mood/Affect, fish fryer II-XII Norm as Tested Skin: Normal Color, Warm/Dry Lymphatic: No Adenopathy Results/Procedures Lab Laboratory Tests 10/15/19 06:24 Patient resulted labs reviewed. FIM Transfers Therapy Code Descriptions/Definitions Functional [place] Measure: 0=Not Assessed/NA 4=Minimal Assistance 1=Total Assistance 5=Supervision or Setup 2=Maximal Assistance 6=Modified [place] 3=Moderate Assistance 7=Complete IndependenceSCALE: Activities may be completed with or without assistive devices. 8-Iohbcxmdrt-ljyanjq completes the activity by him/herself with no assistance from a helper. 5-Set-up or Clean-up Assistance-helper sets up or cleans up; patient completes activity. [place] assists only prior to or following the activity. 4-Supervision or Touching Assistance-helper provides verbal cues and/or touching/steadying and/or contact guard assistance as patient completes activity. Assistance may be provided throughout the activity or intermittently. 3-Partial/Moderate Assistance-helper does LESS THAN HALF the effort. [place] lifts, holds or supports trunk or limbs, but provides less than half the effort. 2-Substantial/Maximal Assistance-helper does MORE THAN HALF the effort. [place] lifts or holds trunk or limbs and provides more than half the effort. 4-Lbmrkhand-otvdoi does ALL the effort. Patient does none of the effort to complete the activity. Or, the assistance of 2 or more helpers is required for the patient to complete the activity. If activity was not attempted, code reason: 7-Patient Refused. 9-Not Applicable-not attempted and the patient did not perform the activity before the current illness, exacerbation or injury. 10-Not Attempted due to Environmental Limitations-(lack of equipment, weather restraints, etc.). 88-Not Attempted due to Medical Conditions or Safety Concerns. Roll Left to Right (QC): 4 Sit to Lying (QC): 4 Sit to Stand (QC): 4 Chair/Nlo-mj-Ptxhs Xfer(QC): 3 Car Transfer (QC): 88 Gait Training Does the Patient Walk?: Yes Walk 10 feet (QC): 3 Walk 50 ft with 2 Turns(QC): 88 Walk 150 ft (QC): 88 Walking 10ft/uneven surface-QC: 88 Gait Persons Needed: 1 Gait Assistive Device: FWW Wheelchair Training Does the Pt Use a Wheelchair?: Yes Wheel 50 ft with 2 turns (QC): 4 Wheel 150 ft (QC): 09 Type of Wheelchair: Manual Stair Training 1 Step (curb) (QC): 88 4 Steps (QC): 88 12 Steps (QC): 88 Balance Picking up an Object (QC): 88 ADL-Treatment Eating (QC): 6 Oral Hygiene (QC): 6 (completes in recliner chair with items set in front of pt.) Bathing Location: L Arm, R Arm, L Upper Leg, R Upper Leg, L Lower Leg (includi ng foot), R Lower Leg (including foot), Chest, Abdomen, Perineal Area Shower/Bathe Self (QC): 3 (min A for bottom throughness. Pt compeltes sponge bath in recliner/ in stance with CGA ) Upper Body Dressing (QC): 5 (s/u for 02 and telemetry) Lower Body Dressing (QC): 3 (min A- pt completes threading BLE with use of conformal pad former for LLE (cues for use) and pulls to knees. Min A to right self in stance (pt compeltes sit to stand with CGA), pt requires min A for situating/ pulling up past hips on L side. Pt attempts pulling up 3x (requires sitting breaks in between due to fatigue/ decreased balance). ) On/Off Footwear (QC): 3 (Pt completes sock doffing with IND (dressing stick use), completes sock donning with max A as pt does not wear socks at home but wears slip on slippers. ) Toileting Hygiene (QC): 2 (max A for bottom thoroughness. ) Toilet Transfer (QC): 2 (Pt sit to stand from bed with CGA, pt ambulates 2 steps with walker use and min A for righting balance to BSC placed on R side. ) Assessment/Plan Assessment and Plan Assess & Plan/Chief Complaint Assessment: CVA w/left sided weakness now dramatically improved Current smoker COPD Cognitive deficit HTN DM Periodic N/V chronic TIA 05/05 Constipation resolved 10/14/19 Plan: Tely IRF protocol N/V management Hold Metformin BM regimen to maintain (1) CVA (cerebral vascular accident) (2) Left-sided weakness (3) Tobacco abuse Status: Chronic (4) Stroke Status: Acute (5) DVT prophylaxis Status: Acute (6) COPD (chronic obstructive pulmonary disease) (7) Diabetes (8) Hyperlipemia (9) Hypertension (10) Leukocytosis Status: Acute (11) Hyponatremia Status: Acute (12) Smoker SUNNY ANDERSON DO Oct 15, 2019 10:18
[2019-10-15] MEDS: ENOXAPARIN 40 MG/0.4 ML (LOVENOX) SYR SC SCH ×2 (11:02→20:51)
--- NOTE | 2019-10-15 12:34 | Speech Therapy Daily Note ---
Speech Daily Progress Note Subjective Date Seen by Provider: Oct 15, 2019 Time Seen by Provider: 00:30 Patient was resting in her bed. Her communication skills have continued to improve. Objective Patient completed a series of q/a related to her needs at 90% with 10% verbal cues. Assessment Assessment Current Status: Good Progress Treatment Plan Continue Plan of Care Speech Short Term Goals Short Term Goals Short Term Goals 1) Patient will complete memory tasks related to daily needs at 90% or greater with minimal cues. 2) Patient will complete safety awareness tasks related to daily needs at 90% or greater with minimal cues. 3) Patient will complete problem solving tasks related to daily needs at 90% or greater with minimal cues. Speech Skilled Nursing Goals Nut Grinder Goals Patient will improve cognitive-communication necessary for safety and daily living tasks with minimal assist. Speech-Plan Patient/Family Goals Patient/Family Goals: Patient plans on returning to her home where she lives alone. Patient's discharge will be determined with the rehab team. Treatment Plan Speech Therapy Treatment Plan: Continue Plan of Care Treatment Duration: Oct 10, 2019 Frequency: 5 times per week Estimated Hrs Per Day: .5 hour per day Rehab Potential: Fair Barriers to Learning: Patient's recent CVA Pt/Family Agrees to Plan: Yes Safety Risks/Education Teaching Recipient: Patient Teaching Methods: Demonstration, Discussion Response to Teaching: Verbalize Understanding, Return Demonstration Education Topics Provided: Continued safety and communication of wants/needs Time Speech Therapy Time In: 10:00 Speech Therapy Time Out: 10:30 Total Billed Time: 30 Billed Treatment Time 1, JHOANA Harris Oct 15, 2019 12:34
[2019-10-15 12:58] VITALS: BP 149/84
[2019-10-15] MEDS: HYDROcodone/APAP 5 MG/325 MG (LORTAB) TAB PO PRN ×2 (13:16→21:44)
--- NOTE | 2019-10-15 13:21 | Physical Therapy Daily Note ---
PT Daily Note-Current Subjective Patient agrees to exercises. Pain Numeric Pain Scale: 5-Moderate Pain Location: Upper, Soft Tissue Location Body Site: Back Pain Description: Ache Mental Status Patient Orientation: Person, Time, Situation Attachments: Oxygen Transfers SCALE: Activities may be completed with or without assistive devices. 2-Gixzrcdzxs-adbtjrh completes the activity by him/herself with no assistance from a helper. 5-Set-up or Clean-up Assistance-helper sets up or cleans up; patient completes activity. [place] assists only prior to or following the activity. 4-Supervision or Touching Assistance-helper provides verbal cues and/or touching/steadying and/or contact guard assistance as patient completes activity. Assistance may be provided throughout the activity or intermittently. 3-Partial/Moderate Assistance-helper does LESS THAN HALF the effort. [place] lifts, holds or supports trunk or limbs, but provides less than half the effort. 2-Substantial/Maximal Assistance-helper does MORE THAN HALF the effort. [place] lifts or holds trunk or limbs and provides more than half the effort. 9-Fsgvxexam-zyyqux does ALL the effort. Patient does none of the effort to complete the activity. Or, the assistance of 2 or more helpers is required for the patient to complete the activity. If activity was not attempted, code reason: 7-Patient Refused. 9-Not Applicable-not attempted and the patient did not perform the activity before the current illness, exacerbation or injury. 10-Not Attempted due to Environmental Limitations-(lack of equipment, weather restraints, etc.). 88-Not Attempted due to Medical Conditions or Safety Concerns. Roll Left & Right (QC): 5 rolling to reposition self in bed Weight Bearing Right Lower Extremity: Right Full Weight Bearing Left Lower Extremity: Left Full Weight Bearing Exercises Supine Ex: Ankle pumps, Quad Set, Glut sets, Heel Slides, Straight leg raise, Hip abd/add Supine Reps: 10 Assessment Patient repositioned in bed for comfort with sidelying right by self. Patient tolerated treatment well. PT to increase activity as tolerated by patient. PT Bed Rubber Goals Bed Rubber Goals PT Residential Goals Time Frame: Oct 30, 2019 Roll Left & Right (QC): 6 Sit to Lying (QC): 6 Lying-Sitting on Side/Bed(QC): 6 Sit to Stand (QC): 6 Chair/Mud-fv-Vnblk Xfer(QC): 6 Toilet Transfer (QC): 6 Car Transfer (QC): 6 Does the Patient Walk: Yes Walk 10 feet (QC): 6 Walk 50ft with 2 Turns (QC): 6 Walk 150 ft (QC): 6 Walking 10ft on Uneven Surface: 6 1 Step (curb) (QC): 6 4 Steps (QC): 6 12 Steps (QC): 6 Picking up an Object (QC): 6 Does the Pt use WC or Scooter?: No Wheel 50 feet with 2 turns (QC: 09 Wheel 150 feet: 09 PT Plan Treatment/Plan Treatment Plan: Continue Plan of Care Treatment Plan: Bed Mobility, Concurrent Therapy, Education, Functional Activity Marjorie, Functional Strength, Group Therapy, Gait, Safety, Therapeutic Exercise, Transfers Treatment Duration: Oct 30, 2019 Frequency: 6 times per week Estimated Hrs Per Day: 1.5 hours per day Patient and/or Family Agrees t: Yes Time/GCodes Time In: 1245 Time Out: 1300 Total Billed Treatment Time: 15 Total Billed Treatment 1 visit EX 15 min ELEANOR OROZCO PT Oct 15, 2019 13:21
[2019-10-15 16:30] VITALS: BP 131/92
[2019-10-15] MEDS ORDERED: RT-ALBUTEROL/IPRATROPIUM 3 ML (DUONEB) VIAL INH PRN (17:00)
--- NOTE | 2019-10-15 17:48 | Cardiology Progress Note ---
Cardiology SOAP Progress Note Subjective: No cardiac complaints. Objective: I&O/Vital Signs 10/15/19 10/15/19 10/15/19 10/15/19 05:56 07:00 07:41 08:10 Temp 36.2 Pulse 73 81 Resp 20 B/P (MAP) 149/84 (105) Pulse Ox 96 91 O2 Delivery Nasal Cannula Nasal Cannula Nasal Cannula O2 Flow Rate 3.00 3.00 3.00 10/15/19 10/15/19 10/15/19 10/15/19 10:26 12:00 12:58 14:15 Temp 36.2 Pulse 86 98 Pulse Ox 93 94 93 O2 Delivery Nasal Cannula Nasal Cannula O2 Flow Rate 3.00 3.00 FiO2 32 10/15/19 00:00 Intake Total 780 ml Balance 780 ml Weight (Pounds): 234 Weight (Ounces): 4.0 Weight (Calculated Kilograms): 106.630496 Constitutional: AAO x 3 Respiratory: chest is bilaterally symmetric, lungs clear to auscultation Cardiovascular: regular rate-rhythm, S1 and S2, systolic murmur Gastrointestional: soft, audible bowel sounds Extremities: normal range of motion, non-tender, normal inspection, no lower extremity edema bilateral Neurologic/Psychiatric: alert, normal mood/affect, oriented x 3 Skin: normal color Results/Procedures: Labs Laboratory Tests 10/14/19 20:22: Glucometer 197H 10/15/19 06:24: White Blood Count 11.0, Red Blood Count 4.91, Hemoglobin 14.5, Hematocrit 44, Mean Corpuscular Volume 89, Mean Corpuscular Hemoglobin 30, Mean Corpuscular Hemoglobin Concent 33, Red Cell Distribution Width 14.4, Platelet Count 383, Mean Platelet Volume 10.8H, Neutrophils (%) (Auto) 65, Lymphocytes (%) (Auto) 21, Monocytes (%) (Auto) 11, Eosinophils (%) (Auto) 3, Basophils (%) (Auto) 1, Neutrophils # (Auto) 7.1, Lymphocytes # (Auto) 2.3, Monocytes # (Auto) 1.2H, Eosinophils # (Auto) 0.3, Basophils # (Auto) 0.1, Sodium Level 130L, Potassium Level 4.7, Chloride Level 93L, Carbon Dioxide Level 27, Anion Gap 10, Blood Urea Nitrogen 11, Creatinine 0.72, Estimat Glomerular Filtration Rate > 60, BUN/Creatinine Ratio 15, Glucose Level 137H, Calcium Level 9.4, Corrected Calcium 9.3, Total Bilirubin 0.3, Aspartate Amino Transf (AST/SGOT) 19, Alanine Aminotransferase (ALT/SGPT) 19, Alkaline Phosphatase 89, Total Protein 7.1, Albumin 4.1 10/15/19 07:30: Glucometer 163H 10/15/19 11:05: Glucometer 159H 10/15/19 15:57: Glucometer 179H A/P: Assessment/Dx: ?CVA, being managed by Dr Gutiérrez Gen weakness and malaise 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 Doesn't appear suitable for statin because has generalized muscle weakness at baseline DM II, being managed by the [facility] No atrial fibrillation on telemetry for over a week. DC telemetry. Plan: Discussion and Recomendations * Continue clopidogrel because of moderate vertebral artery stenosis * If CVA/TIA is established then would need to look of PAF (may need ILR implantation). DC telemetry since no atrial fibrillation for over a week. Thank you for your consultation. Please call me if you have any questions. Yecenia Johnson MD, FACP, FACC, FSCAI, FHRS, CCDS Interventional Cardiology Cardiac Electrophysiology Vascular Medicine and Endovascular Interventions Warren JOHNSON MD Oct 15, 2019 17:48
--- NOTE | 2019-10-15 19:13 | NUR ---
bedside report received from СЕРГЕЙ ALEMAN, assume care of pt
[2019-10-15] MEDS: ASPIRIN E.C. 81 MG (ECOTRIN) TAB PO SCH (20:50)
[2019-10-15] MEDS: MULTIVIT W/MINERALS TAB (THERAGRAN M) PO SCH (20:51)
--- NOTE | 2019-10-15 21:10 | NUR ---
pt refused Colace, Senokot & miralax, states if I need anything will take prune juice, fsbs 195 3 units NovoLog given
--- NOTE | 2019-10-15 21:44 | NUR ---
c/o lt arm hurting, pain level 7/10 on numeric scale, Lortab 5 1 tab given
--- NOTE | 2019-10-15 22:45 | NUR ---
resting quietly in bed, pain level 0/10 on CNPI scale
[2019-10-16 06:00] VITALS: BP 158/96
[2019-10-16] MEDS: inSUlin ASPART (NovoLOG) 1 UNIT/0.01 ML (CHARGE PER UNIT) SC SCH ×4 (06:00→21:29)
[2019-10-16] MEDS: LEVOTHYROXINE 75 MCG (LEVOTHROID) TABLET PO SCH (06:25)
[2019-10-16] MEDS: LEVOTHYROXINE 100 MCG (LEVOTHROID) TAB PO SCH (06:25)
[2019-10-16] MEDS: RT-ALBUTEROL/IPRATROPIUM 3 ML (DUONEB) VIAL INH SCH ×4 (06:51→18:17)
[2019-10-16] MEDS: SENNA W/DOCUSATE (SENOKOT S) TABLET PO SCH ×2 (08:32→21:31)
[2019-10-16] MEDS: DOCUSATE SODIUM 100 MG (COLACE) CAP PO SCH ×2 (08:32→21:30)
[2019-10-16] MEDS: OMEGA 3 (FISH OIL) 1000 MG CAP PO SCH (08:32)
[2019-10-16] MEDS: PANTOPRAZOLE 40 MG (PROTONIX) TAB PO SCH (08:32)
[2019-10-16] MEDS: lisINopril 40 MG (PRINIVIL) TABLET PO SCH (08:32)
[2019-10-16] MEDS: VITAMIN D3 25 MCG (1,000 UNITS) TABLET PO SCH ×3 (08:32→21:20)
[2019-10-16] MEDS: PIOGLITAZONE 30MG (ACTOS) TAB PO SCH (08:32)
[2019-10-16] MEDS: CLOPIDOGREL 75 MG (PLAVIX) TABLET PO SCH (08:32)
[2019-10-16] MEDS: polyethylene glycoL POWDER 17 GM (MIRALAX) PACK PO SCH ×2 (08:32→21:30)
[2019-10-16] MEDS: ENOXAPARIN 40 MG/0.4 ML (LOVENOX) SYR SC SCH ×2 (08:33→21:27)
--- NOTE | 2019-10-16 09:07 | Occupational Ther Daily Note ---
OT Current Status-Daily Note Subjective [id number] seen in bed. Pt agrees to OT tx session. Pt has heating pad on, states "pain all over," then states pain in upper L shoulder as a "stiffness." [id number]: Pt seen in bed. Pt states fatigue and on the verge of napping. Pt agrees to OT tx session while in bed. Mental Status/Objective Patient Orientation: Person, Place, Situation Attachments: Oxygen ADL-Treatment Therapy Code Descriptions/Definitions Functional [place] Measure: 0=Not Assessed/NA 4=Minimal Assistance 1=Total Assistance 5=Supervision or Setup 2=Maximal Assistance 6=Modified [place] 3=Moderate Assistance 7=Complete IndependenceSCALE: Activities may be completed with or without assistive devices. 4-Naxegqqrdz-rcgfeob completes the activity by him/herself with no assistance from a helper. 5-Set-up or Clean-up Assistance-helper sets up or cleans up; patient completes activity. [place] assists only prior to or following the activity. 4-Supervision or Touching Assistance-helper provides verbal cues and/or touching/steadying and/or contact guard assistance as patient completes activity. Assistance may be provided throughout the activity or intermittently. 3-Partial/Moderate Assistance-helper does LESS THAN HALF the effort. [place] lifts, holds or supports trunk or limbs, but provides less than half the effort. 2-Substantial/Maximal Assistance-helper does MORE THAN HALF the effort. [place] lifts or holds trunk or limbs and provides more than half the effort. 5-Hlctkjqna-chiujz does ALL the effort. Patient does none of the effort to complete the activity. Or, the assistance of 2 or more helpers is required for the patient to complete the activity. If activity was not attempted, code reason: 7-Patient Refused. 9-Not Applicable-not attempted and the patient did not perform the activity bef ore the current illness, exacerbation or injury. 10-Not Attempted due to Environmental Limitations-(lack of equipment, weather r estraints, etc.). 88-Not Attempted due to Medical Conditions or Safety Concerns. Bathing Location: L Arm, R Arm, L Upper Leg, R Upper Leg, Chest, Abdomen, Perineal Area Shower/Bathe Self (QC): 3 (Pt takes small sponge bath, completes arm pits and yudelka area, requires assist with buttocks ) Upper Body Dressing (QC): 5 (s/u and cues for ease of dressing) Lower Body Dressing (QC): 3 (min A in stance to pull up and cues for LLE dressing first.) Other Treatment [id number] agrees to OT, bed mob SUP. Pt sit to stand with CGA, ambulates 2 steps to BSC and toilets with SUP. Pt unable to wipe yudelka area without standing (states she is able to wipe bottom/ yudelka area on her toilet as it is "larger"). Pt stands, leans to L side and requires mod A to right self in stance for balance while R hand wipes. Pt returns to sit due to fatigue, requires max A for bottom wiping. Pt dons briefs/ pants as above. Pt brushes hair with OT holding proximal mm for stability of LUE. Pt successfully manages pony tail with 3 wraps of band (utilizing BUE). Pt rests, requires OT to finish. Pt later states immense pain in L shoulder. Pt states "stiffness." Pt agrees to completes PROM in chair. Pt stands from commode, sits EOB, transfers to recliner with CGA. Pt positioned with pillows and heating pad under back/ LUE. Pt left with call light in reach, all needs met. [id number]: Pt seen in bed. States fatigue. Pt completes AROM of L shoulder: 10 reps shoulder flexion, shoulder horizontal abduction, and self-hugs (horizontal adduction). Pt completes 10 bridges in bed, OT holding LLE in adduction as pt unable to hold. Pt left in room with social work present. All needs met, call light in reach. Education OT Patient Education: Correct positioning, Exercise program, Home exercise program, Purpose of tx/functional activities, Use of adapted equipment Teaching Recipient: Patient Teaching Methods: Demonstration, Discussion Response to Teaching: Verbalize Understanding, Return Demonstration, Reinforcement Needed OT Short Term Goals Short Term Goals Time Frame: Oct 16, 2019 Toileting hygiene: 2 Shower/bathe self: 3 Upper body dressin Lower body dressin OT Cinder Crew Worker Goals Prison Goals Time Frame: Oct 30, 2019 Eating (QC): 6 Oral Hygiene (QC): 6 Toileting Hygiene (QC): 5 Shower/Bathe Self (QC): 5 Upper Body Dressing (QC): 6 Lower Body Dressing (QC): 5 On/Off Footwear (QC): 5 Additional Goals: 1-Demonstrate ADL Tasks, 2-Verbalize Understanding, 3- ImproveStrength/Marjorie 1=Demonstrate adherence to instructed precautions during ADL tasks. 2=Patient will verbalize/demonstrate understanding of assistive devices/modifications for ADL. 3=Patient will improve strength/tolerance for activity to enable patient to perform ADL's. OT Education/Plan Problem List/Assessment Assessment: Decreased Activ Tolerance, Decreased UE Strength, Dependent Guzman sfers, Impaired Coordination, Impaired Funct Balance, Impaired I ADL's, Impaired Self-Care Skills Discharge Recommendations Plan/Recommendations: Continue POC Therapy Discharge Recommendati: 24 Hour Supervision, Scheduled Assistance, Home & Family, Post Acute OT Treatment Plan/Plan of Care Treatment,Training & Education: Yes Patient would benefit from OT for education, treatment and training to promote independence in ADL's, mobility, safety and/or upper extremity function for ADL's. Plan of Care: ADL Retraining, Functional Mobility, Group Exercise/Act as Ind, UE Funct Exercise/Act, UE Neuromus Re-Ed/Coord Treatment Duration: Oct 30, 2019 Frequency: At least 5 of 7 days/Wk (IRF) Estimated Hrs Per Day: 1.5 hours per day Rehab Potential: Fair Time/GCodes Start Time: 08:00 (1315) Stop Time: 09:00 (1330) Total Time Billed (hr/min): 75 Billed Treatment Time [id number]: 1, ADL 4 (60) [id number]: 1, EX (15) BARRY BYERS OTR Oct 16, 2019 09:07
--- NOTE | 2019-10-16 10:32 | PM&R Progress Note ---
Subjective HPI/CC On Admission Date Seen by Provider: Oct 16, 2019 Time Seen by Provider: 10:30 Subjective/Events-last exam Patient doing much better today Left shoulder still hurts Kpad helping back and shoulder pain No falls BM regular No depression Cognition seems to be at baseline Checked med and labs Conferred with RN Reviewed therapy notes Review of Systems Neurological: Weakness, Numbness, Incoordination Objective Exam Vital Signs Vital Signs Date Time Temp Pulse Resp B/P (MAP) Pulse Ox O2 Delivery O2 Flow Rate FiO2 10/16/19 14:03 86 Room Air 10/16/19 10:08 2.00 10/16/19 06:00 36.4 76 16 158/96 (116) 10/15/19 12:58 32 Capillary Refill : Less Than 3 Seconds General Appearance: No Apparent Distress, WD/WN, Chronically ill, Obese HEENT: PERRL/EOMI, Normal ENT Inspection, Pharynx Normal Neck: Full Range of Motion, Normal Inspection, Non Tender, Supple, Carotid Bruit Respiratory: Chest Non Tender, Lungs Clear, Normal Breath Sounds, No Accessory Muscle Use, No Respiratory Distress, Decreased Breath Sounds Cardiovascular: Regular Rate, Rhythm, No Edema, No Gallop, No JVD, No Murmur, Normal Peripheral Pulses Gastrointestinal: Normal Bowel Sounds, No Organomegaly, No Pulsatile Mass, Non Tender, Soft Back: Normal Inspection, No CVA Tenderness, No Vertebral Tenderness Extremity: Normal Capillary Refill, Normal Inspection, Normal Range of Motion, Non Tender, No Calf Tenderness, No Pedal Edema Neurologic/Psychiatric: Alert, Oriented x3, No Motor/Sensory Deficits (except left arm and left leg 2-3/5), Normal Mood/Affect, american sign language teacher II-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 FIM Transfers Therapy Code Descriptions/Definitions Functional [place] Measure: 0=Not Assessed/NA 4=Minimal Assistance 1=Total Assistance 5=Supervision or Setup 2=Maximal Assistance 6=Modified [place] 3=Moderate Assistance 7=Complete IndependenceSCALE: Activities may be completed with or without assistive devices. 4-Bcexeioezi-kjhwvig completes the activity by him/herself with no assistance from a helper. 5-Set-up or Clean-up Assistance-helper sets up or cleans up; patient completes activity. [place] assists only prior to or following the activity. 4-Supervision or Touching Assistance-helper provides verbal cues and/or touching/steadying and/or contact guard assistance as patient completes activity. Assistance may be provided throughout the activity or intermittently. 3-Partial/Moderate Assistance-helper does LESS THAN HALF the effort. [place] lifts, holds or supports trunk or limbs, but provides less than half the effort. 2-Substantial/Maximal Assistance-helper does MORE THAN HALF the effort. [place] lifts or holds trunk or limbs and provides more than half the effort. 3-Orhboosqr-bgotge does ALL the effort. Patient does none of the effort to complete the activity. Or, the assistance of 2 or more helpers is required for the patient to complete the activity. If activity was not attempted, code reason: 7-Patient Refused. 9-Not Applicable-not attempted and the patient did not perform the activity before the current illness, exacerbation or injury. 10-Not Attempted due to Environmental Limitations-(lack of equipment, weather restraints, etc.). 88-Not Attempted due to Medical Conditions or Safety Concerns. Roll Left to Right (QC): 5 Sit to Lying (QC): 4 Sit to Stand (QC): 4 Chair/Lsm-xz-Hmimt Xfer(QC): 3 Car Transfer (QC): 88 Gait Training Does the Patient Walk?: Yes Walk 10 feet (QC): 3 Walk 50 ft with 2 Turns(QC): 88 Walk 150 ft (QC): 88 Walking 10ft/uneven surface-QC: 88 Gait Persons Needed: 1 Gait Assistive Device: FWW Wheelchair Training Does the Pt Use a Wheelchair?: Yes Wheel 50 ft with 2 turns (QC): 4 Wheel 150 ft (QC): 09 Type of Wheelchair: Manual Stair Training 1 Step (curb) (QC): 88 4 Steps (QC): 88 12 Steps (QC): 88 Balance Picking up an Object (QC): 88 ADL-Treatment Eating (QC): 6 Oral Hygiene (QC): 6 (completes in recliner chair with items set in front of pt.) Bathing Location: L Arm, R Arm, L Upper Leg, R Upper Leg, Chest, Abdomen, Perineal Area Shower/Bathe Self (QC): 3 (Pt takes small sponge bath, completes arm pits and yudelka area, requires assist with buttocks ) Upper Body Dressing (QC): 5 (s/u and cues for ease of dressing) Lower Body Dressing (QC): 3 (min A in stance to pull up and cues for LLE dressing first.) On/Off Footwear (QC): 3 (Pt completes sock doffing with IND (dressing stick use), completes sock donning with max A as pt does not wear socks at home but wears slip on slippers. ) Toileting Hygiene (QC): 2 (max A for bottom thoroughness. ) Toilet Transfer (QC): 2 (Pt sit to stand from bed with CGA, pt ambulates 2 steps with walker use and min A for righting balance to BSC placed on R side. ) Assessment/Plan Assessment and Plan Assess & Plan/Chief Complaint Assessment: CVA w/left sided weakness now dramatically improved Current smoker COPD Cognitive deficit HTN DM Periodic N/V chronic TIA 05/05 Constipation resolved 10/14/19 Plan: Tely IRF protocol N/V management Hold Metformin due to N/V seems to be helping BM regimen to maintain (1) CVA (cerebral vascular accident) (2) Left-sided weakness (3) Tobacco abuse Status: Chronic (4) Stroke Status: Acute (5) DVT prophylaxis Status: Acute (6) COPD (chronic obstructive pulmonary disease) (7) Diabetes (8) Hyperlipemia (9) Hypertension (10) Leukocytosis Status: Acute (11) Hyponatremia Status: Acute (12) Smoker SUNNY ANDERSON DO Oct 16, 2019 10:32
--- NOTE | 2019-10-16 12:05 | Physical Therapy Daily Note ---
PT Daily Note-Current Subjective Pt sitting in recliner upon arrival. Pt agrees to PT but reports pain/soreness of L UE & LE. Pain Numeric Pain Scale: 5-Moderate Pain Location: Left Location Body Site: Shoulder Pain Description: Ache Mental Status Patient Orientation: Person, Confused, Place Attachments: Oxygen (2L) Transfers SCALE: Activities may be completed with or without assistive devices. 1-Wznpflczpp-mrbznps completes the activity by him/herself with no assistance from a helper. 5-Set-up or Clean-up Assistance-helper sets up or cleans up; patient completes activity. [place] assists only prior to or following the activity. 4-Supervision or Touching Assistance-helper provides verbal cues and/or touching/steadying and/or contact guard assistance as patient completes activity. Assistance may be provided throughout the activity or intermittently. 3-Partial/Moderate Assistance-helper does LESS THAN HALF the effort. [place] lifts, holds or supports trunk or limbs, but provides less than half the effort. 2-Substantial/Maximal Assistance-helper does MORE THAN HALF the effort. [place] lifts or holds trunk or limbs and provides more than half the effort. 2-Rkbpwekqz-koprwd does ALL the effort. Patient does none of the effort to complete the activity. Or, the assistance of 2 or more helpers is required for the patient to complete the activity. If activity was not attempted, code reason: 7-Patient Refused. 9-Not Applicable-not attempted and the patient did not perform the activity before the current illness, exacerbation or injury. 10-Not Attempted due to Environmental Limitations-(lack of equipment, weather restraints, etc.). 88-Not Attempted due to Medical Conditions or Safety Concerns. Sit to Stand (QC): 2 Pt transferred from sit to stand at a 3 at the beginning of tx.Pt began to fatigue and required more assistance. Weight Bearing Right Lower Extremity: Right Full Weight Bearing Left Lower Extremity: Left Full Weight Bearing Gait Training Does the Patient Walk?: Yes Distance: 25 Walk 10 feet (QC): 3 Gait Persons Needed: 1 Gait Assistive Device: FWW Wheelchair Training Does the Pt Use a Wheelchair?: Yes Wheel 50 ft with 2 turns (QC): 6 Type of Wheelchair: Manual Exercises Seated Therapy Exercises: Ankle pumps, Long arc quads, Hip flexion, Kicking activity, Hip abd/add Seated Reps: 15 Treatments While seated in the recliner, pt completes seated ex. Pt transfers from recliner to standing w/ ModA x1, ambulates in room and out into [place] using FWW. Pt requires seated rest break. Pt stands at FWW, maxA x1, and shifts wt laterally. Pt hesitant on ambulating any farther; agrees to work on WC mobility. Pt self propels WC around IRU and back into pt room. Pt transfers back to recliner after WC. Pt completes Seated EX with RB as needed. Pt resting in recliner at end of with all needs met, call light in hand and lunch tray table in front of pt. Assessment Current Status: Fair Progress Pt fatigues quicker today and reports soreness during Rx. PT Senior Care Goals Felt Carbonizer Goals PT Senior Care Goals Time Frame: Oct 30, 2019 Roll Left & Right (QC): 6 Sit to Lying (QC): 6 Lying-Sitting on Side/Bed(QC): 6 Sit to Stand (QC): 6 Chair/Bkp-ey-Drvvx Xfer(QC): 6 Toilet Transfer (QC): 6 Car Transfer (QC): 6 Does the Patient Walk: Yes Walk 10 feet (QC): 6 Walk 50ft with 2 Turns (QC): 6 Walk 150 ft (QC): 6 Walking 10ft on Uneven Surface: 6 1 Step (curb) (QC): 6 4 Steps (QC): 6 12 Steps (QC): 6 Picking up an Object (QC): 6 Does the Pt use WC or Scooter?: No Wheel 50 feet with 2 turns (QC: 09 Wheel 150 feet: 09 PT Plan Problem List Problem List: Activity Tolerance, Functional Strength, Safety, Balance, Gait, Transfer Treatment/Plan Treatment Plan: Continue Plan of Care Treatment Plan: Bed Mobility, Concurrent Therapy, Education, Functional Activity Marjorie, Functional Strength, Group Therapy, Gait, Safety, Therapeutic Exercise, Transfers Treatment Duration: Oct 30, 2019 Frequency: 6 times per week Estimated Hrs Per Day: 1.5 hours per day Patient and/or Family Agrees t: Yes Safety Risks/Education Patient Education: Gait Training, Transfer Techniques, Correct Positioning, W/C Management, Safety Issues Teaching Recipient: Patient Teaching Methods: Discussion Response to Teaching: Verbalize Understanding Time/GCodes Time In: 1100 Time Out: 1200 Total Billed Treatment Time: 60 Total Billed Treatment 1, WC (15m), GT (15m), EX (20m), FA (10m) DAX COBURN PTA Oct 16, 2019 12:05
--- NOTE | 2019-10-16 12:52 | Speech Therapy Daily Note ---
Speech Daily Progress Note Subjective Date Seen by Provider: Oct 16, 2019 Time Seen by Provider: 00:30 Patient was sitting up in her recliner resting when I entered her room. Objective The patient completed problem solving tasks related to her daily needs utilizing the scenario cards "what's wrong with this picture?" at 90% with 15% verbal cuing. Assessment Assessment Current Status: Good Progress Treatment Plan Continue Plan of Care Speech Short Term Goals Short Term Goals Short Term Goals 1) Patient will complete memory tasks related to daily needs at 90% or greater with minimal cues. 2) Patient will complete safety awareness tasks related to daily needs at 90% or greater with minimal cues. 3) Patient will complete problem solving tasks related to daily needs at 90% or greater with minimal cues. Speech Community Service Officer Goals Community Service Officer Goals Patient will improve cognitive-communication necessary for safety and daily neha ing tasks with minimal assist. Speech-Plan Patient/Family Goals Patient/Family Goals: Patient plans on returning home alone upon rehab discharge. It is uncertain at this time if the patient will be able to meet her own needs at home alone. Treatment Plan Speech Therapy Treatment Plan: Continue Plan of Care Treatment Duration: Oct 10, 2019 Frequency: 5 times per week Estimated Hrs Per Day: .5 hour per day Rehab Potential: Fair Barriers to Learning: Patient's after affects of her recent CVA. Pt/Family Agrees to Plan: Yes Safety Risks/Education Teaching Recipient: Patient Teaching Methods: Demonstration, Discussion Response to Teaching: Verbalize Understanding, Return Demonstration Education Topics Provided: Continued safety awareness and communication of wants/needs. Time Speech Therapy Time In: 10:30 Speech Therapy Time Out: 11:00 Total Billed Time: 30 Billed Treatment Time [address] Oct 16, 2019 12:51
--- NOTE | 2019-10-16 13:56 | Physical Therapy Daily Note ---
PT Daily Note-Current Subjective Pt laying Supine in bed upon arrival. Pt agrees to Supine Ex for Rx. Pain Numeric Pain Scale: 5-Moderate Pain Location: Left Location Body Site: Shoulder Pain Description: Ache Mental Status Patient Orientation: Person, Confused, Place Attachments: Oxygen (2L) Transfers SCALE: Activities may be completed with or without assistive devices. 8-Sxowcmhswd-chpgbhh completes the activity by him/herself with no assistance from a helper. 5-Set-up or Clean-up Assistance-helper sets up or cleans up; patient completes activity. [place] assists only prior to or following the activity. 4-Supervision or Touching Assistance-helper provides verbal cues and/or touching/steadying and/or contact guard assistance as patient completes activity. Assistance may be provided throughout the activity or intermittently. 3-Partial/Moderate Assistance-helper does LESS THAN HALF the effort. [place] lifts, holds or supports trunk or limbs, but provides less than half the effort. 2-Substantial/Maximal Assistance-helper does MORE THAN HALF the effort. [place] lifts or holds trunk or limbs and provides more than half the effort. 4-Scunzzwvq-ebbdlp does ALL the effort. Patient does none of the effort to complete the activity. Or, the assistance of 2 or more helpers is required for the patient to complete the activity. If activity was not attempted, code reason: 7-Patient Refused. 9-Not Applicable-not attempted and the patient did not perform the activity before the current illness, exacerbation or injury. 10-Not Attempted due to Environmental Limitations-(lack of equipment, weather restraints, etc.). 88-Not Attempted due to Medical Conditions or Safety Concerns. Weight Bearing Right Lower Extremity: Right Full Weight Bearing Left Lower Extremity: Left Full Weight Bearing Exercises Supine Ex: Ankle pumps, Heel Slides, Straight leg raise, Hip abd/add Supine Reps: 15 Treatments Pt completes Supine Ex in bed with RB as needed. Pt is repositioned to comfort. Pt has all needs met, call light in hand. Assessment Current Status: Fair Progress Pt fatigues quick. PT Import/Export Analyst Goals Import/Export Analyst Goals PT Snf Goals Time Frame: Oct 30, 2019 Roll Left & Right (QC): 6 Sit to Lying (QC): 6 Lying-Sitting on Side/Bed(QC): 6 Sit to Stand (QC): 6 Chair/Vvr-uw-Tabha Xfer(QC): 6 Toilet Transfer (QC): 6 Car Transfer (QC): 6 Does the Patient Walk: Yes Walk 10 feet (QC): 6 Walk 50ft with 2 Turns (QC): 6 Walk 150 ft (QC): 6 Walking 10ft on Uneven Surface: 6 1 Step (curb) (QC): 6 4 Steps (QC): 6 12 Steps (QC): 6 Picking up an Object (QC): 6 Does the Pt use WC or Scooter?: No Wheel 50 feet with 2 turns (QC: 09 Wheel 150 feet: 09 PT Plan Problem List Problem List: Activity Tolerance, Functional Strength Treatment/Plan Treatment Plan: Continue Plan of Care Treatment Plan: Bed Mobility, Concurrent Therapy, Education, Functional Activity Marjorie, Functional Strength, Group Therapy, Gait, Safety, Therapeutic Exercise, Transfers Treatment Duration: Oct 30, 2019 Frequency: 6 times per week Estimated Hrs Per Day: 1.5 hours per day Patient and/or Family Agrees t: Yes Safety Risks/Education Patient Education: Correct Positioning, Safety Issues Teaching Recipient: Patient Teaching Methods: Discussion Response to Teaching: Verbalize Understanding Time/GCodes Time In: 1340 Time Out: 1400 Total Billed Treatment Time: 20 Total Billed Treatment 1, EX (20m) DAX COBURN PTA Oct 16, 2019 13:56
[2019-10-16] MEDS: HYDROcodone/APAP 5 MG/325 MG (LORTAB) TAB PO PRN (14:14)
--- NOTE | 2019-10-16 15:16 | NUR ---
CM/SS CONCURRENT DOCUMENTATION Patient appears improved cognitively from initial visit, converses well. [place] [employer]/Mariel has worked with patient to complete a [employer] application, this can not be processed without proof of income. Spoke with patient, then daughter Ofelia Spaulding, then [employer]/[place] where patient has her account. In partnership with all, patient completed an Authorization to Release three months' bank statements and proof of VA deposits to [facility] so that her application can be fully submitted. E-scanned document to Lilliana and Mariel so that information can be exchanged directly between them. Per Ofelia, the daughters have concluded that patient will need to transfer into a SNF upon discharge from PAU. They have not been able to proactively seek alternate housing because of Covid19 pandemic and associated access limitations. Patient will likely be considered Medicaid Pending for SNF referrals. Regarding preference, they have refused [facility] but appear open to other local facilities.
--- NOTE | 2019-10-16 15:32 | Cardiology Progress Note ---
Cardiology SOAP Progress Note Subjective: No cardiac complaints. Objective: I&O/Vital Signs 10/16/19 10/16/19 10/16/19 10/16/19 06:00 06:51 09:39 10:08 Temp 36.4 Pulse 76 Resp 16 B/P (MAP) 158/96 (116) Pulse Ox 94 92 94 O2 Delivery Nasal Cannula Nasal Cannula Nasal Cannula Nasal Cannula O2 Flow Rate 3.00 2.00 2.00 2.00 10/16/19 14:03 Pulse Ox 86 O2 Delivery Room Air 10/16/19 00:00 Intake Total 600 ml Balance 600 ml Weight (Pounds): 234 Weight (Ounces): 4.0 Weight (Calculated Kilograms): [id number] Constitutional: AAO x 3 Respiratory: chest is bilaterally symmetric, lungs clear to auscultation Cardiovascular: regular rate-rhythm, S1 and S2, systolic murmur Gastrointestional: soft, audible bowel sounds Extremities: normal range of motion, non-tender, normal inspection, no lower extremity edema bilateral Neurologic/Psychiatric: alert, normal mood/affect, oriented x 3 Skin: normal color Results/Procedures: Labs Laboratory Tests 10/15/19 15:57: Glucometer 179H 10/15/19 20:26: Glucometer 195H 10/16/19 06:02: Glucometer 148H 10/16/19 10:51: Glucometer 169H A/P: Assessment/Dx: ?CVA, being managed by Dr Gutiérrez Gen weakness and malaise 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 Doesn't appear suitable for statin because has generalized muscle weakness at baseline DM II, being managed by the [facility] No atrial fibrillation on telemetry for over a week. DC telemetry. Plan: Discussion and Recomendations * Continue clopidogrel because of moderate vertebral artery stenosis * If CVA/TIA is established then would need to look of PAF (may need ILR implantation). DC telemetry since no atrial fibrillation for over a week. * Cardiology will sign off. Please reconsult if more help is required. Thank you for your consultation. Please call me if you have any questions. Yecenia Johnson MD, FACP, FACC, FSCAI, FHRS, CCDS Interventional Cardiology Cardiac Electrophysiology Vascular Medicine and Endovascular Interventions Warren JOHNSON MD Oct 16, 2019 15:32
[2019-10-16 16:22] VITALS: BP 150/84
--- NOTE | 2019-10-16 19:08 | NUR ---
bedside report received from DANIELLA ALEMAN, assume care of pt
--- NOTE | 2019-10-16 21:07 | NUR ---
pt refused Jewel, Senjoaquim & kadeem, fsbs 215, NovoLog 3 units given, bed alarm on side rails up x4, call light within reach.
[2019-10-16] MEDS: ASPIRIN E.C. 81 MG (ECOTRIN) TAB PO SCH (21:20)
[2019-10-16] MEDS: MULTIVIT W/MINERALS TAB (THERAGRAN M) PO SCH (21:27)
[2019-10-17 05:53] VITALS: BP 161/98
[2019-10-17] MEDS: inSUlin ASPART (NovoLOG) 1 UNIT/0.01 ML (CHARGE PER UNIT) SC SCH ×4 (06:00→20:53)
[2019-10-17] MEDS: LEVOTHYROXINE 100 MCG (LEVOTHROID) TAB PO SCH (06:22)
[2019-10-17] MEDS: LEVOTHYROXINE 75 MCG (LEVOTHROID) TABLET PO SCH (06:22)
[2019-10-17] MEDS: RT-ALBUTEROL/IPRATROPIUM 3 ML (DUONEB) VIAL INH SCH ×4 (07:07→18:00)
[2019-10-17] MEDS: VITAMIN D3 25 MCG (1,000 UNITS) TABLET PO SCH ×3 (09:44→20:44)
[2019-10-17] MEDS: OMEGA 3 (FISH OIL) 1000 MG CAP PO SCH (09:44)
[2019-10-17] MEDS: lisINopril 40 MG (PRINIVIL) TABLET PO SCH (09:44)
[2019-10-17] MEDS: PANTOPRAZOLE 40 MG (PROTONIX) TAB PO SCH (09:44)
[2019-10-17] MEDS: PIOGLITAZONE 30MG (ACTOS) TAB PO SCH (09:44)
[2019-10-17] MEDS: CLOPIDOGREL 75 MG (PLAVIX) TABLET PO SCH (09:44)
[2019-10-17] MEDS: polyethylene glycoL POWDER 17 GM (MIRALAX) PACK PO SCH ×2 (09:45→20:48)
[2019-10-17] MEDS: SENNA W/DOCUSATE (SENOKOT S) TABLET PO SCH ×2 (09:45→20:49)
[2019-10-17] MEDS: DOCUSATE SODIUM 100 MG (COLACE) CAP PO SCH ×2 (09:45→20:48)
[2019-10-17] MEDS: ENOXAPARIN 40 MG/0.4 ML (LOVENOX) SYR SC SCH ×2 (09:46→20:46)
--- NOTE | 2019-10-17 10:27 | PM&R Progress Note ---
Subjective HPI/CC On Admission Date Seen by Provider: Oct 17, 2019 Time Seen by Provider: 10:30 Subjective/Events-last exam Patient doing much better today and every day for the past 3 days Left shoulder still hurts but minimal Kpad helping back and shoulder pain No falls BM regular No depression noted today Family thinks she needs to be in a shelter which is unfortunate since she appears to be much improved and may be able to go to assisted living? Cognition seems to be at baseline and improved slow processing Fluid restriction noted and will recheck labs in am Checked med and labs Conferred with RN Reviewed therapy notes Review of Systems Neurological: Weakness, Numbness, Incoordination Objective Exam Vital Signs Vital Signs Date Time Temp Pulse Resp B/P (MAP) Pulse Ox O2 Delivery O2 Flow Rate FiO2 10/17/19 14:03 94 Nasal Cannula 3.00 10/17/19 05:53 36.2 74 18 161/98 (119) 10/15/19 12:58 32 Capillary Refill : Less Than 3 Seconds General Appearance: No Apparent Distress, WD/WN, Chronically ill, Obese HEENT: PERRL/EOMI, Normal ENT Inspection, Pharynx Normal Neck: Full Range of Motion, Normal Inspection, Non Tender, Supple, Carotid Bruit Respiratory: Chest Non Tender, Lungs Clear, Normal Breath Sounds, No Accessory Muscle Use, No Respiratory Distress, Decreased Breath Sounds Cardiovascular: Regular Rate, Rhythm, No Edema, No Gallop, No JVD, No Murmur, Normal Peripheral Pulses Gastrointestinal: Normal Bowel Sounds, No Organomegaly, No Pulsatile Mass, Non Tender, Soft Back: Normal Inspection, No CVA Tenderness, No Vertebral Tenderness Extremity: Normal Capillary Refill, Normal Inspection, Normal Range of Motion, Non Tender, No Calf Tenderness, No Pedal Edema Neurologic/Psychiatric: Alert, Oriented x3, No Motor/Sensory Deficits (except left arm and left leg 2-3/5), Normal Mood/Affect, sql tech II-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 FIM Transfers Therapy Code Descriptions/Definitions Functional [place] Measure: 0=Not Assessed/NA 4=Minimal Assistance 1=Total Assistance 5=Supervision or Setup 2=Maximal Assistance 6=Modified [place] 3=Moderate Assistance 7=Complete IndependenceSCALE: Activities may be completed with or without assistive devices. 1-Kebowkyjik-nodwayd completes the activity by him/herself with no assistance from a helper. 5-Set-up or Clean-up Assistance-helper sets up or cleans up; patient completes activity. [place] assists only prior to or following the activity. 4-Supervision or Touching Assistance-helper provides verbal cues and/or brennan precious/steadying and/or contact guard assistance as patient completes activity. Assistance may be provided throughout the activity or intermittently. 3-Partial/Moderate Assistance-helper does LESS THAN HALF the effort. [place] lifts, holds or supports trunk or limbs, but provides less than half the effort. 2-Substantial/Maximal Assistance-helper does MORE THAN HALF the effort. [place] lifts or holds trunk or limbs and provides more than half the effort. 2-Moeapanpk-twpnvp does ALL the effort. Patient does none of the effort to complete the activity. Or, the assistance of 2 or more helpers is required for the patient to complete the activity. If activity was not attempted, code reason: 7-Patient Refused. 9-Not Applicable-not attempted and the patient did not perform the activity before the current illness, exacerbation or injury. 10-Not Attempted due to Environmental Limitations-(lack of equipment, weather restraints, etc.). 88-Not Attempted due to Medical Conditions or Safety Concerns. Roll Left to Right (QC): 5 Sit to Lying (QC): 4 Sit to Stand (QC): 2 Chair/Ndy-fy-Lekrq Xfer(QC): 3 Car Transfer (QC): 88 Gait Training Does the Patient Walk?: Yes Distance: 25 Walk 10 feet (QC): 3 Walk 50 ft with 2 Turns(QC): 88 Walk 150 ft (QC): 88 Walking 10ft/uneven surface-QC: 88 Gait Persons Needed: 1 Gait Assistive Device: FWW Wheelchair Training Does the Pt Use a Wheelchair?: Yes Wheel 50 ft with 2 turns (QC): 6 Wheel 150 ft (QC): 09 Type of Wheelchair: Manual Stair Training 1 Step (curb) (QC): 88 4 Steps (QC): 88 12 Steps (QC): 88 Balance Picking up an Object (QC): 88 ADL-Treatment Eating (QC): 6 Oral Hygiene (QC): 6 (completes in recliner chair with items set in front of pt.) Bathing Location: L Arm, R Arm, L Upper Leg, R Upper Leg, Chest, Abdomen, Perineal Area Shower/Bathe Self (QC): 3 (Pt takes small sponge bath, completes arm pits and yudelka area, requires assist with buttocks ) Upper Body Dressing (QC): 5 (s/u and cues for ease of dressing) Lower Body Dressing (QC): 3 (min A in stance to pull up and cues for LLE dressing first.) On/Off Footwear (QC): 3 (Pt completes sock doffing with IND (dressing stick use), completes sock donning with max A as pt does not wear socks at home but wears slip on slippers. ) Toileting Hygiene (QC): 2 (max A for bottom thoroughness. ) Toilet Transfer (QC): 2 (Pt sit to stand from bed with CGA, pt ambulates 2 steps with walker use and min A for righting balance to BSC placed on R side. ) Assessment/Plan Assessment and Plan Assess & Plan/Chief Complaint Assessment: CVA w/left sided weakness now dramatically improved Current smoker COPD Cognitive deficit HTN DM Periodic N/V chronic TIA 05/05 Constipation resolved 10/14/19 Hyponatremia Plan: [place] LEMA IRF protocol N/V management Hold Metformin due to N/V seems to be helping BM regimen to maintain Check labs in am (1) CVA (cerebral vascular accident) (2) Left-sided weakness (3) Tobacco abuse Status: Chronic (4) Stroke Status: Acute (5) DVT prophylaxis Status: Acute (6) COPD (chronic obstructive pulmonary disease) (7) Diabetes (8) Hyperlipemia (9) Hypertension (10) Leukocytosis Status: Acute (11) Hyponatremia Status: Acute (12) Smoker SUNNY ANDERSON DO Oct 17, 2019 10:27
--- NOTE | 2019-10-17 11:02 | Physical Therapy Daily Note ---
PT Daily Note-Current Subjective Pt. up in chair. States she does not like it when people give her "step by step" directions for walking or moving. Mental Status Patient Orientation: Person Attachments: Oxygen (2L) Transfers SCALE: Activities may be completed with or without assistive devices. 9-Xgokfnspww-pmdsrjq completes the activity by him/herself with no assistance from a helper. 5-Set-up or Clean-up Assistance-helper sets up or cleans up; patient completes activity. [place] assists only prior to or following the activity. 4-Supervision or Touching Assistance-helper provides verbal cues and/or touching/steadying and/or contact guard assistance as patient completes activity. Assistance may be provided throughout the activity or intermittently. 3-Partial/Moderate Assistance-helper does LESS THAN HALF the effort. [place] lifts, holds or supports trunk or limbs, but provides less than half the effort. 2-Substantial/Maximal Assistance-helper does MORE THAN HALF the effort. [place] lifts or holds trunk or limbs and provides more than half the effort. 5-Jpdgzsttf-yowpmn does ALL the effort. Patient does none of the effort to compl ete the activity. Or, the assistance of 2 or more helpers is required for the patient to complete the activity. If activity was not attempted, code reason: 7-Patient Refused. 9-Not Applicable-not attempted and the patient did not perform the activity before the current illness, exacerbation or injury. 10-Not Attempted due to Environmental Limitations-(lack of equipment, weather restraints, etc.). 88-Not Attempted due to Medical Conditions or Safety Concerns. Sit to Stand (QC): 4 Weight Bearing Right Lower Extremity: Right Full Weight Bearing Left Lower Extremity: Left Full Weight Bearing Gait Training Does the Patient Walk?: Yes Distance: 100 ft, 10 ft, 25 ft Walk 10 feet (QC): 3 Gait Persons Needed: 1 Gait Assistive Device: FWW pt. very unsafe during ambulation and impulsive. She needs constant cuing to s low down gait speed for safety. Pt. has a tendency to get left leg dragging behind but is still trying to ambulate forward. Exercises Seated Therapy Exercises: Ankle pumps, Sit to stand (5 reps), Long arc quads, Hip flexion Seated Reps: 20 NuStep Minutes: 10 NuStep Workload: 3 Treatments gait, LE exercises, pt. education for safety Assessment Current Status: Good Progress Pt. becomes argumentive with therapist during session in performing activities the way she wants without regards to safety. Pt. was very unsafe during ambulation, assist of a second person needed with oxygen tank and w/c follow as she is impulsive and fatigues quickly in the left LE. Pt. is overall improving mobility and completes sit to stand transfers with CGA only. Pt. returned to bedside chair post session with chair alarm on, call light in reach and all needs met. PT Investigation Division Sergeant Goals Investigation Division Sergeant Goals PT Senior Care Goals Time Frame: Oct 30, 2019 Roll Left & Right (QC): 6 Sit to Lying (QC): 6 Lying-Sitting on Side/Bed(QC): 6 Sit to Stand (QC): 6 Chair/Nfr-or-Wyfhc Xfer(QC): 6 Toilet Transfer (QC): 6 Car Transfer (QC): 6 Does the Patient Walk: Yes Walk 10 feet (QC): 6 Walk 50ft with 2 Turns (QC): 6 Walk 150 ft (QC): 6 Walking 10ft on Uneven Surface: 6 1 Step (curb) (QC): 6 4 Steps (QC): 6 12 Steps (QC): 6 Picking up an Object (QC): 6 Does the Pt use WC or Scooter?: No Wheel 50 feet with 2 turns (QC: 09 Wheel 150 feet: 09 PT Plan Treatment/Plan Treatment Plan: Continue Plan of Care Treatment Plan: Bed Mobility, Concurrent Therapy, Education, Functional Activity Marjorie, Functional Strength, Group Therapy, Gait, Safety, Therapeutic Exercise, Transfers Treatment Duration: Oct 30, 2019 Frequency: 6 times per week Estimated Hrs Per Day: 1.5 hours per day Patient and/or Family Agrees t: Yes Time/GCodes Time In: 945 Time Out: 1030 Total Billed Treatment Time: 45 Total Billed Treatment 1, GT 20', Ex 25' BILLIE LEE PT Oct 17, 2019 11:02
--- NOTE | 2019-10-17 11:27 | Occupational Ther Daily Note ---
OT Current Status-Daily Note Subjective [id number]: Pt seen up in chair. Agrees to shower on this date. Pt states less stiffness in L shoulder, stating she has been moving it more. [id number]: Pt seen EOB post-eating. Pt agreeable to OT tx session. Mental Status/Objective Patient Orientation: Person, Place, Situation Attachments: Oxygen ADL-Treatment Therapy Code Descriptions/Definitions Functional [place] Measure: 0=Not Assessed/NA 4=Minimal Assistance 1=Total Assistance 5=Supervision or Setup 2=Maximal Assistance 6=Modified [place] 3=Moderate Assistance 7=Complete IndependenceSCALE: Activities may be completed with or without assistive devices. 5-Tpjrilnyki-mddjrra completes the activity by him/herself with no assistance from a helper. 5-Set-up or Clean-up Assistance-helper sets up or cleans up; patient completes activity. [place] assists only prior to or following the activity. 4-Supervision or Touching Assistance-helper provides verbal cues and/or touching/steadying and/or contact guard assistance as patient completes activity. Assistance may be provided throughout the activity or intermittently. 3-Partial/Moderate Assistance-helper does LESS THAN HALF the effort. [place] lifts, holds or supports trunk or limbs, but provides less than half the effort. 2-Substantial/Maximal Assistance-helper does MORE THAN HALF the effort. [place] lifts or holds trunk or limbs and provides more than half the effort. 3-Ljjsvjozn-qtljzb does ALL the effort. Patient does none of the effort to complete the activity. Or, the assistance of 2 or more helpers is required for the patient to complete the activity. If activity was not attempted, code reason: 7-Patient Refused. 9-Not Applicable-not attempted and the patient did not perform the activity before the current illness, exacerbation or injury. 10-Not Attempted due to Environmental Limitations-(lack of equipment, weather restraints, etc.). 88-Not Attempted due to Medical Conditions or Safety Concerns. Eating (QC): 6 Oral Hygiene (QC): 7 Bathing Location: L Arm, R Arm, L Upper Leg, R Upper Leg, L Lower Leg (including foot), R Lower Leg (including foot), Chest, Abdomen, Buttocks, Perineal Area Shower/Bathe Self (QC): 4 (Pt completes shower on s/c with CGA transfer and cues for hand placement on gbs. Pt sits on shower bench with good balance. Pt washes all areas with SBA (excluding bottom with CGA in stance). Pt uses LHS for feet. Dries all areas with SBA-CGA.) Upper Body Dressing (QC): 5 (s/u) Lower Body Dressing (QC): 3 (min A for LLE threading. Use of solid waste landfill technician and trash can to elevated LLE toward pt.) On/Off Footwear: 1 (socks donned with TD.) Toileting Hygiene (QC): 4 (CGA-min A for righting balance.) Toilet Transfer (QC): 4 (CGA to shower bench. ) Other Treatment [id number]: Pt sit to stand with CGA and transfers to w/c with walker. Pt able to complete showering/ dressing as above. Pt returns to w/c for drying tasks, dresses in w/c. Pt returns to recliner with CGA. Pt positioned for comfort and heating pad applied to L shoulder per pt request.Pt states frustration that she would like to be up with one person at night and prove she is able to complete bed mob/ toilet mob with CGA- pt educated on being advocate for her actions and stating to helpers that she is able to complete with assist x1. This written on communication board, pt agrees. Pt completes hair brushing with min A for back and min A for hair styling. Pt left in recliner with all needs met, call light on lap, chair alarm on. [id number]: Pt seen EOB. Pt completes sit to stands x5 (~20-40 seconds each time) CGA and min cues throughout. Pt reaches with R hand to recliner to stabilize self. Pt requires cues to correct self and quality assurance lead onto walker. Pt explains self, pt educated on requirement to practice without external supports to practice balance and self-correction with walker. Pt agrees. Pt completes standing and reaches with L hand x5 (in shoulder flexion and shoulder abduction) with CGA and able to maintain balance. Pt ambulates ~5 steps to recliner chair, pt sits and all needs met, call light in reach, chair alarm on. Education OT Patient Education: Correct positioning, Modified ADL techniques, Purpose of tx/functional activities, Safety issues, Transfer techniques Teaching Recipient: Patient Teaching Methods: Demonstration, Discussion Response to Teaching: Verbalize Understanding, Return Demonstration OT Short Term Goals Short Term Goals Time Frame: Oct 16, 2019 Toileting hygiene: 2 Shower/bathe self: 3 Upper body dressin Lower body dressin OT Stencil Inspector Goals Stencil Inspector Goals Time Frame: Oct 30, 2019 Eating (QC): 6 Oral Hygiene (QC): 6 Toileting Hygiene (QC): 5 Shower/Bathe Self (QC): 5 Upper Body Dressing (QC): 6 Lower Body Dressing (QC): 5 On/Off Footwear (QC): 5 Additional Goals: 1-Demonstrate ADL Tasks, 2-Verbalize Understanding, 3- ImproveStrength/Marjorie 1=Demonstrate adherence to instructed precautions during ADL tasks. 2=Patient will verbalize/demonstrate understanding of assistive de vices/modifications for ADL. 3=Patient will improve strength/tolerance for activity to enable patient to perform ADL's. OT Education/Plan Problem List/Assessment Assessment: Decreased Activ Tolerance, Decreased UE Strength, Dependent Transfers, Impaired Coordination, Impaired I ADL's, Impaired Self-Care Skills Discharge Recommendations Plan/Recommendations: Continue POC Therapy Discharge Recommendati: Scheduled Assistance, Bath Aide, Home & Family, Post Acute OT Treatment Plan/Plan of Care Treatment,Training & Education: Yes Patient would benefit from OT for education, treatment and training to promote independence in ADL's, mobility, safety and/or upper extremity function for ADL's. Plan of Care: ADL Retraining, Functional Mobility, Group Exercise/Act as Ind, UE Funct Exercise/Act, UE Neuromus Re-Ed/Coord Treatment Duration: Oct 30, 2019 Frequency: At least 5 of 7 days/Wk (IRF) Estimated Hrs Per Day: 1.5 hours per day Rehab Potential: Fair Time/GCodes Start Time: 08:00 (1300) Stop Time: 09:00 (1315) Total Time Billed (hr/min): 75 Billed Treatment Time [id number]: 1, ADL 4 (60) [id number]: 1, EX (15) BARRY BYERS OTR Oct 17, 2019 11:27
--- NOTE | 2019-10-17 11:35 | NUR ---
PT IS WITH PHYSICAL THERAPY. Addendum: 10/17/19 at 1400 by KO JANE RT Amended: Links added.
--- NOTE | 2019-10-17 11:39 | Physical Therapy Daily Note ---
PT Daily Note-Current Subjective Pt. in bed, agrees to do bed exercises. Mental Status Patient Orientation: Person Transfers SCALE: Activities may be completed with or without assistive devices. 7-Shthevlyts-foncjpm completes the activity by him/herself with no assistance from a helper. 5-Set-up or Clean-up Assistance-helper sets up or cleans up; patient completes activity. [place] assists only prior to or following the activity. 4-Supervision or Touching Assistance-helper provides verbal cues and/or touching/steadying and/or contact guard assistance as patient completes activity. Assistance may be provided throughout the activity or intermittently. 3-Partial/Moderate Assistance-helper does LESS THAN HALF the effort. [place] lifts, holds or supports trunk or limbs, but provides less than half the effort. 2-Substantial/Maximal Assistance-helper does MORE THAN HALF the effort. [place] lifts or holds trunk or limbs and provides more than half the effort. 6-Wmeljtnno-okheoh does ALL the effort. Patient does none of the effort to complete the activity. Or, the assistance of 2 or more helpers is required for the patient to complete the activity. If activity was not attempted, code reason: 7-Patient Refused. 9-Not Applicable-not attempted and the patient did not perform the activity before the current illness, exacerbation or injury. 10-Not Attempted due to Environmental Limitations-(lack of equipment, weather restraints, etc.). 88-Not Attempted due to Medical Conditions or Safety Concerns. Weight Bearing Right Lower Extremity: Right Full Weight Bearing Left Lower Extremity: Left Full Weight Bearing Exercises Supine Ex: Ankle pumps, Quad Set, Glut sets, Heel Slides, Short Arc Quads, Straight leg raise (10), Hip abd/add (10) Supine Reps: 15 Treatments LE exercises Assessment Current Status: Good Progress Pt. needs cues to slow down reps of exercises for full benefit, especially on the L. She fatigues quickly with SLR on L. Pt. in bed post session with call light and all needs met. PT Fdc Goals Coagulating Operator Goals PT Fdc Goals Time Frame: Oct 30, 2019 Roll Left & Right (QC): 6 Sit to Lying (QC): 6 Lying-Sitting on Side/Bed(QC): 6 Sit to Stand (QC): 6 Chair/Gpv-gf-Gfehx Xfer(QC): 6 Toilet Transfer (QC): 6 Car Transfer (QC): 6 Does the Patient Walk: Yes Walk 10 feet (QC): 6 Walk 50ft with 2 Turns (QC): 6 Walk 150 ft (QC): 6 Walking 10ft on Uneven Surface: 6 1 Step (curb) (QC): 6 4 Steps (QC): 6 12 Steps (QC): 6 Picking up an Object (QC): 6 Does the Pt use WC or Scooter?: No Wheel 50 feet with 2 turns (QC: 09 Wheel 150 feet: 09 PT Plan Treatment/Plan Treatment Plan: Continue Plan of Care Treatment Plan: Bed Mobility, Concurrent Therapy, Education, Functional Activity Marjorie, Functional Strength, Group Therapy, Gait, Safety, Therapeutic Exercise, Transfers Treatment Duration: Oct 30, 2019 Frequency: 6 times per week Estimated Hrs Per Day: 1.5 hours per day Patient and/or Family Agrees t: Yes Time/GCodes Time In: 1125 Time Out: 1140 Total Billed Treatment Time: 15 Total Billed Treatment 1, Ex 15' BILLIE LEE PT Oct 17, 2019 11:39
--- NOTE | 2019-10-17 13:38 | Physical Therapy Daily Note ---
PT Daily Note-Current Subjective Pt. up in chair, agrees to therapy but states "I want to take a nap!" Mental Status Patient Orientation: Person, Place, Time, Situation Attachments: Oxygen Transfers SCALE: Activities may be completed with or without assistive devices. 4-Vfvoozyskm-xgqzsic completes the activity by him/herself with no assistance from a helper. 5-Set-up or Clean-up Assistance-helper sets up or cleans up; patient completes activity. [place] assists only prior to or following the activity. 4-Supervision or Touching Assistance-helper provides verbal cues and/or touching/steadying and/or contact guard assistance as patient completes activity. Assistance may be provided throughout the activity or intermittently. 3-Partial/Moderate Assistance-helper does LESS THAN HALF the effort. [place] lifts, holds or supports trunk or limbs, but provides less than half the effort. 2-Substantial/Maximal Assistance-helper does MORE THAN HALF the effort. [place] lifts or holds trunk or limbs and provides more than half the effort. 0-Ncsewjqrv-lmejzy does ALL the effort. Patient does none of the effort to complete the activity. Or, the assistance of 2 or more helpers is required for the patient to complete the activity. If activity was not attempted, code reason: 7-Patient Refused. 9-Not Applicable-not attempted and the patient did not perform the activity before the current illness, exacerbation or injury. 10-Not Attempted due to Environmental Limitations-(lack of equipment, weather restraints, etc.). 88-Not Attempted due to Medical Conditions or Safety Concerns. Weight Bearing Right Lower Extremity: Right Full Weight Bearing Left Lower Extremity: Left Full Weight Bearing Exercises Seated Therapy Exercises: Ankle pumps, Long arc quads, Hip flexion, Hip abd/add Seated Reps: 20 Standing: Marching, Sit to Stand (5 reps, cues to control descent) Standing Reps: 10 Treatments LE exercises Assessment Current Status: Good Progress Pt. continues to need cues to slow down reps of exercise on the L for improved coordination and control. Pt. fatigued very quickly with marching in place, particularly with full weight on the left LE. Pt. up in chair post session with call light, chair alarm in place and all needs met. PT Jukebox Coin Collector Goals [facility] Goals PT Jukebox Coin Collector Goals Time Frame: Oct 30, 2019 Roll Left & Right (QC): 6 Sit to Lying (QC): 6 Lying-Sitting on Side/Bed(QC): 6 Sit to Stand (QC): 6 Chair/Mrb-al-Afdwq Xfer(QC): 6 Toilet Transfer (QC): 6 Car Transfer (QC): 6 Does the Patient Walk: Yes Walk 10 feet (QC): 6 Walk 50ft with 2 Turns (QC): 6 Walk 150 ft (QC): 6 Walking 10ft on Uneven Surface: 6 1 Step (curb) (QC): 6 4 Steps (QC): 6 12 Steps (QC): 6 Picking up an Object (QC): 6 Does the Pt use WC or Scooter?: No Wheel 50 feet with 2 turns (QC: 09 Wheel 150 feet: 09 PT Plan Treatment/Plan Treatment Plan: Continue Plan of Care Treatment Plan: Bed Mobility, Concurrent Therapy, Education, Functional Activity Marjorie, Functional Strength, Group Therapy, Gait, Safety, Therapeutic Exercise, Transfers Treatment Duration: Oct 30, 2019 Frequency: 6 times per week Estimated Hrs Per Day: 1.5 hours per day Patient and/or Family Agrees t: Yes Time/GCodes Time In: 1328 Time Out: 1343 Total Billed Treatment Time: 15 Total Billed Treatment 1, Ex 15' BILLIE LEE PT Oct 17, 2019 13:38
--- NOTE | 2019-10-17 14:12 | NUR ---
"RD ASSESSMENT PMHx: HTN; stroke; TIA; diverticulosis; DM; CA(uterine) PT INTERACTION: Pt was awake and pleasant during nutrition follow-up. Pt states she has been eating well since last assessment. Note avg PO intake >75% x4d, per chart review. Pt states no issues with n/v/c/d since last assessment. Note last BM was 10/13, and pt currently on bowel regimen Colace BID; Senna BID; and Miralax BID, per chart review. ABNORMAL NUTRITION-RELATED LAB VALUES LOW: Na 130; Cl 93 HIGH: glu 137 Est. kcal needs: 3932-9279 kcal | 15-18 kcal/kg Est. Pro needs: 89-112 g Pro | 0.8-1.0 g Pro/kg PES STATEMENT: Given current PO intake, no nutrition diagnosis at this time (NO-1.1) INTERVENTION: Continue with current diet order of CHO 75g/m 0snack diet. Pt may benefit from stricter CHO restriction if blood glucose levels become elevated. Will continue to follow and reassess as pt needs, intake, and status change. MONITOR/EVALUATE: PO Intake; Plan of Care; Hydration Status; Weight Status; Lab Values Jayjay Ramsey, MS, RD, LD"
--- NOTE | 2019-10-17 14:42 | Speech Therapy Daily Note ---
Speech Daily Progress Note Subjective Date Seen by Provider: Oct 17, 2019 Time Seen by Provider: 00:30 Patient was very talkative today. Her processing speech has significantly improved. Objective Patient completed a series of sequencing for ADL tasks she may encounter upon her return home with 85% given minimal cues. Assessment Assessment Current Status: Good Progress Treatment Plan Continue Plan of Care Speech Short Term Goals Short Term Goals Short Term Goals 1) Patient will complete memory tasks related to daily needs at 90% or greater with minimal cues. 2) Patient will complete safety awareness tasks related to daily needs at 90% or greater with minimal cues. 3) Patient will complete problem solving tasks related to daily needs at 90% or greater with minimal cues. Speech Production Aide Goals Skilled Nursing Goals Patient will improve cognitive-communication necessary for safety and daily living tasks with minimal assist. Speech-Plan Patient/Family Goals Patient/Family Goals: Patient plans to return home with support if this can be arranged. Treatment Plan Speech Therapy Treatment Plan: Continue Plan of Care Treatment Duration: Oct 10, 2019 Frequency: 5 times per week Estimated Hrs Per Day: .5 hour per day Rehab Potential: Fair Barriers to Learning: Patient's affects of the CVA Pt/Family Agrees to Plan: Yes Safety Risks/Education Teaching Recipient: Patient Teaching Methods: Demonstration, Discussion Response to Teaching: Verbalize Understanding, Return Demonstration Education Topics Provided: Safety and communication Time Speech Therapy Time In: 10:30 Speech Therapy Time Out: 11:00 Total Billed Time: 30 Billed Treatment Time DALTON Ortega [address] Oct 17, 2019 14:42
[2019-10-17 18:26] VITALS: BP 147/78
--- NOTE | 2019-10-17 19:04 | NUR ---
bedside report received from СЕРГЕЙ ALEMAN, assume care of pt
[2019-10-17] MEDS: HYDROcodone/APAP 5 MG/325 MG (LORTAB) TAB PO PRN (20:45)
[2019-10-17] MEDS: ASPIRIN E.C. 81 MG (ECOTRIN) TAB PO SCH (20:45)
[2019-10-17] MEDS: MULTIVIT W/MINERALS TAB (THERAGRAN M) PO SCH (20:45)
--- NOTE | 2019-10-17 20:45 | NUR ---
pt refused Colace, Senokot & miralax fsbs 186 NovoLog 3 units given, c/o lt shoulder pain, level 7/10 on numeric scale, hydrocodone 5 mg 1 tab given
--- NOTE | 2019-10-17 21:40 | NUR ---
resting quietly in bed, pain level 0/10 on CNPI scale
[2019-10-18 05:28] VITALS: BP 140/83
[2019-10-18] MEDS: inSUlin ASPART (NovoLOG) 1 UNIT/0.01 ML (CHARGE PER UNIT) SC SCH ×4 (06:00→21:19)
[2019-10-18] MEDS: LEVOTHYROXINE 100 MCG (LEVOTHROID) TAB PO SCH (06:26)
[2019-10-18] MEDS: LEVOTHYROXINE 75 MCG (LEVOTHROID) TABLET PO SCH (06:26)
[2019-10-18 06:30] LABS: BASOPHILS # (AUTO) 0.1 10^3/uL (0.0-0.1); BASOPHILS % (AUTO) 1 % (0-10); EOSINOPHILS # (AUTO) 0.2 10^3/uL (0.0-0.3); EOSINOPHILS % (AUTO) 3 % (0-10); HEMATOCRIT 41 % (35-52); LYMPHOCYTES % (AUTO) 22 % (12-44); MEAN CORPUSCULAR HEMOGLOBIN 30 PG (25-34); MEAN CORPUSCULAR HGB CONC 34 G/DL (32-36); MEAN CORPUSCULAR VOLUME 89 FL (80-99); MEAN PLATELET VOLUME 10.4 FL (7.4-10.4); MONOCYTES # (AUTO) 0.9 X 10^3 (0.0-1.0); MONOCYTES % (AUTO) 9 % (0-12); NEUTROPHILS # (AUTO) 6.2 X 10^3 (1.8-7.8); NEUTROPHILS % (AUTO) 66 % (42-75); PLATELET COUNT 390 10^3/uL (130-400); RED CELL DISTRIBUTION WIDTH 14.2 % (10.0-14.5); WHITE BLOOD COUNT 9.5 10^3/uL (4.3-11.0)
[2019-10-18 06:54] LABS: ALANINE AMINOTRANSFERASE 20 U/L (0-55); ALKALINE PHOSPHATASE 75 U/L (40-136); BILIRUBIN,TOTAL 0.3 MG/DL (0.1-1.0); BUN/CREATININE RATIO 19; CALCIUM 9.3 MG/DL (8.5-10.1); CARBON DIOXIDE 24 MMOL/L (21-32); CHLORIDE 94 MMOL/L (98-107); CREATININE SERUM 0.72 MG/DL (0.60-1.30); GFR ESTIMATED > 60; GLUCOSE 154 MG/DL (70-105); POTASSIUM 4.7 MMOL/L (3.6-5.0); SODIUM 130 MMOL/L (135-145)
[2019-10-18] MEDS: RT-ALBUTEROL/IPRATROPIUM 3 ML (DUONEB) VIAL INH SCH ×4 (07:13→20:20)
--- NOTE | 2019-10-18 08:38 | Occupational Ther Daily Note ---
OT Current Status-Daily Note Subjective [id number] seen in bed. Pt agreeable to OT tx session, denies pain on this date. [id number]: Pt seen in gym post-PT. Pt agrees to OT tx session, denies pain, then states pain through LUE. Mental Status/Objective Patient Orientation: Person, Place, Situation, Normal For Age Attachments: Oxygen (3L) ADL-Treatment Therapy Code Descriptions/Definitions Functional [place] Measure: 0=Not Assessed/NA 4=Minimal Assistance 1=Total Assistance 5=Supervision or Setup 2=Maximal Assistance 6=Modified [place] 3=Moderate Assistance 7=Complete IndependenceSCALE: Activities may be completed with or without assistive devices. 7-Tppgzgsfbl-wuxqxvf completes the activity by him/herself with no assistance from a helper. 5-Set-up or Clean-up Assistance-helper sets up or cleans up; patient completes activity. [place] assists only prior to or following the activity. 4-Supervision or Touching Assistance-helper provides verbal cues and/or touching/steadying and/or contact guard assistance as patient completes activity. Assistance may be provided throughout the activity or intermittently. 3-Partial/Moderate Assistance-helper does LESS THAN HALF the effort. [place] lifts, holds or supports trunk or limbs, but provides less than half the effort. 2-Substantial/Maximal Assistance-helper does MORE THAN HALF the effort. [place] lifts or holds trunk or limbs and provides more than half the effort. 3-Qbthxvsfj-yiodfl does ALL the effort. Patient does none of the effort to complete the activity. Or, the assistance of 2 or more helpers is required for the patient to complete the activity. If activity was not attempted, code reason: 7-Patient Refused. 9-Not Applicable-not attempted and the patient did not perform the activity before the current illness, exacerbation or injury. 10-Not Attempted due to Environmental Limitations-(lack of equipment, weather restraints, etc.). 88-Not Attempted due to Medical Conditions or Safety Concerns. Eating (QC): 5 Oral Hygiene (QC): 6 (Pt completes IND in front of sink ) Upper Body Dressing (QC): 5 Lower Body Dressing (QC): 4 (CGA EOB and in stance.) On/Off Footwear: 2 Other Treatment [id number]: Pt completes bed mob with SUP. Dresses EOB, cues for dressing techniques (no use of AE for LB). Pt completes sit to stand and w/c transfer with CGA and walker. Pt pushed to gym in w/c. Pt completes 4 minutes arm bike ex with BUE and cues for slow/ controlled movement, pt completes additional 4 minutes in reverse, and 2 minutes of LUE only. Pt states "feels good, feels like it's moving." Pt denies pain. Pt completes bimanual cutting activty of theraputty with success, takes lids off containers with BUE with success, and completes bimanual/ L hand manipulation task with beads in putty. Pt educated on coordination/ bimanual task HEP with theraputty. Pt nods in understanding. Pt transfers with CGA to recliner chair, all needs met, call light in reach, chair alarm on. [id number]: Pt in w/c at start of session. With nursing approval, OT and pt move outside for tx session. Pt completes w/c mobility with min A (max A for door ledge). Pt completes in-hand manipulation and translation tasks with skilled cues for positioning, purpose, and activity completion. Pt able to complete translation with intermittent assist for catching theraputty with R hand. Pt states stiffness in L hand post-activity. Pt completes pinch/ special services agent strengthening with theraputty. Pt completes AROM of entire L UE. Pt returns to ARU floor. Pt requests restroom, completes w/c to commode transfer with CGA. Pt able to pull pants down with CGA. Pt completes urination, requires max A for bottom clean up, min A for yudelka clean up. Pt requires 2 attempts and breaks to pull pants up, still requiring mod A to pullboat engineer hips. Pt then sits in w/c, transfers self to bed with SBA. Pt bed mob with increased time, all needs met, call light in reach. Education OT Patient Education: Correct positioning, Exercise program, Home exercise program, Modified ADL techniques, Safety issues, Transfer techniques Teaching Recipient: Patient Teaching Methods: Demonstration, Discussion Response to Teaching: Verbalize Understanding, Return Demonstration OT Short Term Goals Short Term Goals Time Frame: Oct 16, 2019 Toileting hygiene: 2 Shower/bathe self: 3 Upper body dressin Lower body dressin OT Group Home Goals Guidance Adviser Goals Time Frame: Oct 30, 2019 Eating (QC): 6 Oral Hygiene (QC): 6 Toileting Hygiene (QC): 5 Shower/Bathe Self (QC): 5 Upper Body Dressing (QC): 6 Lower Body Dressing (QC): 5 On/Off Footwear (QC): 5 Additional Goals: 1-Demonstrate ADL Tasks, 2-Verbalize Understanding, 3- ImproveStrength/Marjorie 1=Demonstrate adherence to instructed precautions during ADL tasks. 2=Patient will verbalize/demonstrate understanding of assistive devices/modifications for ADL. 3=Patient will improve strength/tolerance for activity to enable patient to perform ADL's. OT Education/Plan Problem List/Assessment Assessment: Decreased Activ Tolerance, Decreased UE Strength, Dependent T ransfers, Impaired Coordination, Impaired Funct Balance, Impaired I ADL's, Impaired Self-Care Skills Discharge Recommendations Plan/Recommendations: Continue POC Therapy Discharge Recommendati: Scheduled Assistance, Home & Family, Post Acute OT Treatment Plan/Plan of Care Treatment,Training & Education: Yes Patient would benefit from OT for education, treatment and training to promote independence in ADL's, mobility, safety and/or upper extremity function for ADL's. Plan of Care: ADL Retraining, Functional Mobility, Group Exercise/Act as Ind, UE Funct Exercise/Act, UE Neuromus Re-Ed/Coord Treatment Duration: Oct 30, 2019 Frequency: At least 5 of 7 days/Wk (IRF) Estimated Hrs Per Day: 1.5 hours per day Rehab Potential: Fair Time/GCodes Start Time: 08:00 (1315) Stop Time: 09:00 (1355) Total Time Billed (hr/min): 100 Billed Treatment Time 9417-8670: 1, ADL (15), EX (15), NM (30)= 60 1097-1123: 1, NM 2 (25), ADL (15)= 40 BARRY BYERS OTR Oct 18, 2019 08:38
--- NOTE | 2019-10-18 08:48 | PM&R Progress Note ---
Subjective HPI/CC On Admission Date Seen by Provider: Oct 18, 2019 Time Seen by Provider: 10:45 Subjective/Events-last exam BM moving after prune juice and laxatives Sodium level 130 so increasing fluids to 2000cc/day Weakness of left side is getting better and better BP ok Overall very happy and optimistic with her progress Family will need to evaluate dispo Checked med and labs Conferred with RN Reviewed therapy notes Review of Systems Neurological: Weakness, Numbness, Incoordination Objective Exam Vital Signs Vital Signs Date Time Temp Pulse Resp B/P (MAP) Pulse Ox O2 Delivery O2 Flow Rate FiO2 10/18/19 14:41 95 Nasal Cannula 5.00 10/18/19 10:55 36.2 76 28 10/18/19 05:28 18 140/83 (102) Capillary Refill : Less Than 3 Seconds General Appearance: No Apparent Distress, WD/WN, Chronically ill, Obese HEENT: PERRL/EOMI, Normal ENT Inspection, Pharynx Normal Neck: Full Range of Motion, Normal Inspection, Non Tender, Supple, Carotid Bruit Respiratory: Chest Non Tender, Lungs Clear, Normal Breath Sounds, No Accessory Muscle Use, No Respiratory Distress, Decreased Breath Sounds Cardiovascular: Regular Rate, Rhythm, No Edema, No Gallop, No JVD, No Murmur, Normal Peripheral Pulses Gastrointestinal: Normal Bowel Sounds, No Organomegaly, No Pulsatile Mass, Non Tender, Soft Back: Normal Inspection, No CVA Tenderness, No Vertebral Tenderness Extremity: Normal Capillary Refill, Normal Inspection, Normal Range of Motion, Non Tender, No Calf Tenderness, No Pedal Edema Neurologic/Psychiatric: Alert, Oriented x3, No Motor/Sensory Deficits (except left arm and left leg 2-3/5), Normal Mood/Affect, medical education specialist II-XII Norm as Tested Skin: Normal Color, Warm/Dry Lymphatic: No Adenopathy Results/Procedures Lab Laboratory Tests 10/18/19 05:57 10/18/19 06:06 Patient resulted labs reviewed. FIM Transfers Therapy Code Descriptions/Definitions Functional [place] Measure: 0=Not Assessed/NA 4=Minimal Assistance 1=Total Assistance 5=Supervision or Setup 2=Maximal Assistance 6=Modified [place] 3=Moderate Assistance 7=Complete IndependenceSCALE: Activities may be completed with or without assistive devices. 1-Styrxyqmdq-ujdzlxh completes the activity by him/herself with no assistance from a helper. 5-Set-up or Clean-up Assistance-helper sets up or cleans up; patient completes activity. [place] assists only prior to or following the activity. 4-Supervision or Touching Assistance-helper provides verbal cues and/or touching/steadying and/or contact guard assistance as patient completes activity. Assistance may be provided throughout the activity or intermittently. 3-Partial/Moderate Assistance-helper does LESS THAN HALF the effort. [place] lifts, holds or supports trunk or limbs, but provides less than half the effort. 2-Substantial/Maximal Assistance-helper does MORE THAN HALF the effort. [place] lifts or holds trunk or limbs and provides more than half the effort. 3-Yajdyxeic-cmfecy does ALL the effort. Patient does none of the effort to complete the activity. Or, the assistance of 2 or more helpers is required for the patient to complete the activity. If activity was not attempted, code reason: 7-Patient Refused. 9-Not Applicable-not attempted and the patient did not perform the activity before the current illness, exacerbation or injury. 10-Not Attempted due to Environmental Limitations-(lack of equipment, weather restraints, etc.). 88-Not Attempted due to Medical Conditions or Safety Concerns. Roll Left to Right (QC): 5 Sit to Lying (QC): 4 Sit to Stand (QC): 4 Chair/Cet-vg-Rtnru Xfer(QC): 3 Car Transfer (QC): 88 Gait Training Does the Patient Walk?: Yes Distance: 100 ft, 10 ft, 25 ft Walk 10 feet (QC): 3 Walk 50 ft with 2 Turns(QC): 88 Walk 150 ft (QC): 88 Walking 10ft/uneven surface-QC: 88 Gait Persons Needed: 1 Gait Assistive Device: FWW Wheelchair Training Does the Pt Use a Wheelchair?: Yes Wheel 50 ft with 2 turns (QC): 6 Wheel 150 ft (QC): 09 Type of Wheelchair: Manual Stair Training 1 Step (curb) (QC): 88 4 Steps (QC): 88 12 Steps (QC): 88 Balance Picking up an Object (QC): 88 ADL-Treatment Eating (QC): 5 Oral Hygiene (QC): 6 (Pt completes IND in front of sink ) Bathing Location: L Arm, R Arm, L Upper Leg, R Upper Leg, L Lower Leg (includi ng foot), R Lower Leg (including foot), Chest, Abdomen, Buttocks, Perineal Area Shower/Bathe Self (QC): 4 (Pt completes shower on s/c with CGA transfer and cues for hand placement on gbs. Pt sits on shower bench with good balance. Pt washes all areas with SBA (excluding bottom with CGA in stance). Pt uses LHS for feet. Dries all areas with SBA-CGA.) Upper Body Dressing (QC): 5 Lower Body Dressing (QC): 4 (CGA EOB and in stance.) On/Off Footwear (QC): 1 (socks donned with TD.) Toileting Hygiene (QC): 4 (CGA-min A for righting balance.) Toilet Transfer (QC): 4 (CGA to shower bench. ) Assessment/Plan Assessment and Plan Assess & Plan/Chief Complaint Assessment: CVA w/left sided weakness now dramatically improved Current smoker COPD Cognitive deficit improved HTN DM Periodic N/V chronic TIA 05/05 Constipation resolved 10/14/19 Hyponatremia Plan: [place] LEMA IRF protocol N/V management Hold Metformin due to N/V seems to be helping BM regimen to maintain Increase fluids to 2000cc/day (1) CVA (cerebral vascular accident) (2) Left-sided weakness (3) Tobacco abuse Status: Chronic (4) Stroke Status: Acute (5) DVT prophylaxis Status: Acute (6) COPD (chronic obstructive pulmonary disease) (7) Diabetes (8) Hyperlipemia (9) Hypertension (10) Leukocytosis Status: Acute (11) Hyponatremia Status: Acute (12) Smoker SUNNY ANDERSON DO Oct 18, 2019 08:48
[2019-10-18] MEDS: PANTOPRAZOLE 40 MG (PROTONIX) TAB PO SCH (09:58)
[2019-10-18] MEDS: CLOPIDOGREL 75 MG (PLAVIX) TABLET PO SCH (09:58)
[2019-10-18] MEDS: OMEGA 3 (FISH OIL) 1000 MG CAP PO SCH (09:58)
[2019-10-18] MEDS: ENOXAPARIN 40 MG/0.4 ML (LOVENOX) SYR SC SCH ×2 (09:58→21:32)
[2019-10-18] MEDS: SENNA W/DOCUSATE (SENOKOT S) TABLET PO SCH ×2 (09:59→20:07)
[2019-10-18] MEDS: PIOGLITAZONE 30MG (ACTOS) TAB PO SCH (09:59)
[2019-10-18] MEDS: VITAMIN D3 25 MCG (1,000 UNITS) TABLET PO SCH ×3 (09:59→21:32)
[2019-10-18] MEDS: DOCUSATE SODIUM 100 MG (COLACE) CAP PO SCH ×2 (09:59→20:07)
[2019-10-18] MEDS: polyethylene glycoL POWDER 17 GM (MIRALAX) PACK PO SCH ×2 (09:59→20:07)
[2019-10-18] MEDS: lisINopril 40 MG (PRINIVIL) TABLET PO SCH (10:05)
[2019-10-18 10:55] VITALS: BP 140/83
--- NOTE | 2019-10-18 11:23 | Physical Therapy Daily Note ---
PT Daily Note-Current Subjective Pt. in chair, agrees to therapy. States "I'm not doing very good today...things just aren't working." She has no c/o pain. Mental Status Patient Orientation: Person Attachments: Oxygen Transfers SCALE: Activities may be completed with or without assistive devices. 0-Ubesctpvzm-jzxfxoz completes the activity by him/herself with no assistance from a helper. 5-Set-up or Clean-up Assistance-helper sets up or cleans up; patient completes activity. [place] assists only prior to or following the activity. 4-Supervision or Touching Assistance-helper provides verbal cues and/or touching/steadying and/or contact guard assistance as patient completes activity. Assistance may be provided throughout the activity or intermittently. 3-Partial/Moderate Assistance-helper does LESS THAN HALF the effort. [place] lifts, holds or supports trunk or limbs, but provides less than half the effort. 2-Substantial/Maximal Assistance-helper does MORE THAN HALF the effort. [place] lifts or holds trunk or limbs and provides more than half the effort. 8-Bqqvfvoin-pxmpmx does ALL the effort. Patient does none of the effort to c omplete the activity. Or, the assistance of 2 or more helpers is required for the patient to complete the activity. If activity was not attempted, code reason: 7-Patient Refused. 9-Not Applicable-not attempted and the patient did not perform the activity before the current illness, exacerbation or injury. 10-Not Attempted due to Environmental Limitations-(lack of equipment, weather restraints, etc.). 88-Not Attempted due to Medical Conditions or Safety Concerns. Sit to Stand (QC): 4 Weight Bearing Right Lower Extremity: Right Full Weight Bearing Left Lower Extremity: Left Full Weight Bearing Gait Training Does the Patient Walk?: Yes Distance: 3 x 25 ft, x 20 ft Walk 10 feet (QC): 3 Gait Persons Needed: 1 Gait Assistive Device: FWW w/c follow with PT tech and assist with O2 tank Exercises Seated Therapy Exercises: Ankle pumps, Long arc quads, Hip flexion, Hip abd/add Seated Reps: 20 NuStep Minutes: 15 NuStep Workload: 4 Treatments gait training, LE exercise Assessment Current Status: Good Progress, Fair Progress Pt. more fatigued today during ambulation and had frequent buckling of the L knee. Pt. needed cuing to slow down for improved safety and she did better with this aspect today, although remains unsafe with stand to sit in not reaching back for w/c or chair and poorly controlled descent. Pt. up in chair post session with call light in reach, chair alarm set and all needs met. PT Mcc Goals Brakes Inspector Goals PT Mcc Goals Time Frame: Oct 30, 2019 Roll Left & Right (QC): 6 Sit to Lying (QC): 6 Lying-Sitting on Side/Bed(QC): 6 Sit to Stand (QC): 6 Chair/Nga-us-Ktylp Xfer(QC): 6 Toilet Transfer (QC): 6 Car Transfer (QC): 6 Does the Patient Walk: Yes Walk 10 feet (QC): 6 Walk 50ft with 2 Turns (QC): 6 Walk 150 ft (QC): 6 Walking 10ft on Uneven Surface: 6 1 Step (curb) (QC): 6 4 Steps (QC): 6 12 Steps (QC): 6 Picking up an Object (QC): 6 Does the Pt use WC or Scooter?: No Wheel 50 feet with 2 turns (QC: 09 Wheel 150 feet: 09 PT Plan Treatment/Plan Treatment Plan: Continue Plan of Care Treatment Plan: Bed Mobility, Concurrent Therapy, Education, Functional Activity Marjorie, Functional Strength, Group Therapy, Gait, Safety, Therapeutic Exercise, Transfers Treatment Duration: Oct 30, 2019 Frequency: 6 times per week Estimated Hrs Per Day: 1.5 hours per day Patient and/or Family Agrees t: Yes Time/GCodes Time In: 915 Time Out: 1015 Total Billed Treatment Time: 60 Total Billed Treatment 1, GT 20', Ex 40' BILLIE LEE PT Oct 18, 2019 11:23
--- NOTE | 2019-10-18 13:59 | Speech Therapy Daily Note ---
Speech Daily Progress Note Subjective Date Seen by Provider: Oct 18, 2019 Time Seen by Provider: 00:30 Patient was pleasant and talkative today during our session. Objective Patient completed a series of problem solving tasks with one word responses at 9% with minimal cues. Assessment Assessment Current Status: Good Progress Treatment Plan Continue Plan of Care Speech Short Term Goals Short Term Goals Short Term Goals 1) Patient will complete memory tasks related to daily needs at 90% or greater with minimal cues. 2) Patient will complete safety awareness tasks related to daily needs at 90% or greater with minimal cues. 3) Patient will complete problem solving tasks related to daily needs at 90% or greater with minimal cues. Speech Forest Ranger Goals Nursing Home Goals Patient will improve cognitive-communication necessary for safety and daily living tasks with minimal assist. Speech-Plan Patient/Family Goals Patient/Family Goals: The patient's discharge plans are not determined at this time. Due to her level of function she may require a SNF placement. Treatment Plan Speech Therapy Treatment Plan: Continue Plan of Care Treatment Duration: Oct 10, 2019 Frequency: 5 times per week Estimated Hrs Per Day: .5 hour per day Rehab Potential: Fair Barriers to Learning: Patient's cogitive deficits due to recent CVA Pt/Family Agrees to Plan: Yes Safety Risks/Education Teaching Recipient: Patient Teaching Methods: Demonstration, Discussion Response to Teaching: Verbalize Understanding, Return Demonstration Education Topics Provided: Continued safety within her room Time Speech Therapy Time In: 10:30 Speech Therapy Time Out: 11:00 Total Billed Time: 30 Billed Treatment Time [address] Oct 18, 2019 13:59
--- NOTE | 2019-10-18 14:04 | Physical Therapy Daily Note ---
PT Daily Note-Current Subjective Pt. in bed, agrees to PT. Mental Status Patient Orientation: Person Attachments: Oxygen Transfers SCALE: Activities may be completed with or without assistive devices. 4-Atkpkqcqqz-zmmjbwm completes the activity by him/herself with no assistance from a helper. 5-Set-up or Clean-up Assistance-helper sets up or cleans up; patient completes activity. [place] assists only prior to or following the activity. 4-Supervision or Touching Assistance-helper provides verbal cues and/or touching/steadying and/or contact guard assistance as patient completes activity. Assistance may be provided throughout the activity or intermittently. 3-Partial/Moderate Assistance-helper does LESS THAN HALF the effort. [place] lifts, holds or supports trunk or limbs, but provides less than half the effort. 2-Substantial/Maximal Assistance-helper does MORE THAN HALF the effort. [place] lifts or holds trunk or limbs and provides more than half the effort. 3-Knyieptuw-dtiwwu does ALL the effort. Patient does none of the effort to complete the activity. Or, the assistance of 2 or more helpers is required for the patient to complete the activity. If activity was not attempted, code reason: 7-Patient Refused. 9-Not Applicable-not attempted and the patient did not perform the activity before the current illness, exacerbation or injury. 10-Not Attempted due to Environmental Limitations-(lack of equipment, weather restraints, etc.). 88-Not Attempted due to Medical Conditions or Safety Concerns. Lying to Sitting/Side of Bed(Q: 5 Sit to Stand (QC): 4 Chair/Mka-op-Vvivu Xfer(QC): 4 Weight Bearing Right Lower Extremity: Right Full Weight Bearing Left Lower Extremity: Left Full Weight Bearing Wheelchair Training Does the Pt Use a Wheelchair?: Yes Type of Wheelchair: Manual w/c mobility x 100 ft using upper and lower extremities to advance. verbal cues needed with L LE and to clear stationary objects. Treatments transfers, LE exercise in w/c Assessment Current Status: Good Progress Pt. completed transfers with CGA today. She continues to need cuing for safety and for L LE during activities. Pt. up in w/c in hallway, transfer of care to OT. PT Ditto Machine Operator Goals Ditto Machine Operator Goals PT Fpc Goals Time Frame: Oct 30, 2019 Roll Left & Right (QC): 6 Sit to Lying (QC): 6 Lying-Sitting on Side/Bed(QC): 6 Sit to Stand (QC): 6 Chair/Xko-ew-Nkiyh Xfer(QC): 6 Toilet Transfer (QC): 6 Car Transfer (QC): 6 Does the Patient Walk: Yes Walk 10 feet (QC): 6 Walk 50ft with 2 Turns (QC): 6 Walk 150 ft (QC): 6 Walking 10ft on Uneven Surface: 6 1 Step (curb) (QC): 6 4 Steps (QC): 6 12 Steps (QC): 6 Picking up an Object (QC): 6 Does the Pt use WC or Scooter?: No Wheel 50 feet with 2 turns (QC: 09 Wheel 150 feet: 09 PT Plan Treatment/Plan Treatment Plan: Continue Plan of Care Treatment Plan: Bed Mobility, Concurrent Therapy, Education, Functional Activity Marjorie, Functional Strength, Group Therapy, Gait, Safety, Therapeutic Exercise, Transfers Treatment Duration: Oct 30, 2019 Frequency: 6 times per week Estimated Hrs Per Day: 1.5 hours per day Patient and/or Family Agrees t: Yes Time/GCodes Time In: 1300 Time Out: 1315 Total Billed Treatment Time: 15 Total Billed Treatment 1, FA 15' BILLIE LEE PT Oct 18, 2019 14:04
--- NOTE | 2019-10-18 15:32 | NUR ---
CM/SS PATIENT CARE CONFERENCE Met with patient to review Conference summary. Patient understands the team plans to review her progress next Tuesday. [facility] discharge date is 11/02/19, probable community senior care placement. Barriers to discharge include self pay status with [facility] Medicaid application being submitted by hospital financial representatives. Info Print Press Operator did attempt to facilitate this by pursing proof of income directly through patient's bank with her written authorization. Additional barriers noted throughout case management entries. Patient is functionally unable to access her former apartment because of split level stairs. Team identified poor safety awareness/fall risk, deficits of coordination and upper extremity strength, requires increased time to complete ADLs. Daughters have not been able to move about freely or access appropriate resources because of Covid19 restrictions/mandates. Daughters continue to support next step senior care placement, patient is in agreement. The goal is that nursing facility would be a next step only, that the longer goal is to seek assisted living environment once funding is available. Patient can not afford [facility] without [employer] and does not appear, at this time, to be able to safely reside alone because of physical deficits. Info Print Press Operator contacted [employer] regarding potential for acceptance as a Medicaid Pending, await response.
[2019-10-18 16:00] VITALS: BP 133/83
[2019-10-18 18:00] VITALS: BP 120/66
[2019-10-18] MEDS: MULTIVIT W/MINERALS TAB (THERAGRAN M) PO SCH (21:32)
[2019-10-18] MEDS: ASPIRIN E.C. 81 MG (ECOTRIN) TAB PO SCH (21:32)
[2019-10-19] MEDS: LEVOTHYROXINE 75 MCG (LEVOTHROID) TABLET PO SCH (05:28)
[2019-10-19] MEDS: LEVOTHYROXINE 100 MCG (LEVOTHROID) TAB PO SCH (05:28)
[2019-10-19] MEDS: inSUlin ASPART (NovoLOG) 1 UNIT/0.01 ML (CHARGE PER UNIT) SC SCH ×4 (05:35→21:36)
[2019-10-19 06:16] VITALS: BP 154/86
[2019-10-19] MEDS: RT-ALBUTEROL/IPRATROPIUM 3 ML (DUONEB) VIAL INH SCH ×4 (06:48→18:41)
[2019-10-19] MEDS: SENNA W/DOCUSATE (SENOKOT S) TABLET PO SCH ×2 (08:07→21:52)
[2019-10-19] MEDS: polyethylene glycoL POWDER 17 GM (MIRALAX) PACK PO SCH ×2 (08:07→21:52)
[2019-10-19] MEDS: VITAMIN D3 25 MCG (1,000 UNITS) TABLET PO SCH ×3 (09:14→21:36)
[2019-10-19] MEDS: OMEGA 3 (FISH OIL) 1000 MG CAP PO SCH (09:14)
[2019-10-19] MEDS: PIOGLITAZONE 30MG (ACTOS) TAB PO SCH (09:14)
[2019-10-19] MEDS: CLOPIDOGREL 75 MG (PLAVIX) TABLET PO SCH (09:14)
[2019-10-19] MEDS: lisINopril 40 MG (PRINIVIL) TABLET PO SCH (09:14)
[2019-10-19] MEDS: PANTOPRAZOLE 40 MG (PROTONIX) TAB PO SCH (09:15)
[2019-10-19] MEDS: DOCUSATE SODIUM 100 MG (COLACE) CAP PO SCH ×2 (09:15→21:52)
--- NOTE | 2019-10-19 09:57 | Physical Therapy Daily Note ---
PT Daily Note-Current Subjective Patient in WC pre tx, agrees to PT, has no complaints of pain at rest. Appearance Patient in recliner post tx with nurse call, phone, tray, chair alarm on, all needs met. Mental Status Patient Orientation: Person, Place, Situation Attachments: Oxygen Transfers SCALE: Activities may be completed with or without assistive devices. 2-Qxtbpdwwco-cipwhlq completes the activity by him/herself with no assistance from a helper. 5-Set-up or Clean-up Assistance-helper sets up or cleans up; patient completes activity. [place] assists only prior to or following the activity. 4-Supervision or Touching Assistance-helper provides verbal cues and/or touching/steadying and/or contact guard assistance as patient completes activity. Assistance may be provided throughout the activity or intermittently. 3-Partial/Moderate Assistance-helper does LESS THAN HALF the effort. [place] lifts, holds or supports trunk or limbs, but provides less than half the effort. 2-Substantial/Maximal Assistance-helper does MORE THAN HALF the effort. [place] lifts or holds trunk or limbs and provides more than half the effort. 1-Huhzjulpe-dpocdz does ALL the effort. Patient does none of the effort to complete the activity. Or, the assistance of 2 or more helpers is required for the patient to complete the activity. If activity was not attempted, code reason: 7-Patient Refused. 9-Not Applicable-not attempted and the patient did not perform the activity before the current illness, exacerbation or injury. 10-Not Attempted due to Environmental Limitations-(lack of equipment, weather restraints, etc.). 88-Not Attempted due to Medical Conditions or Safety Concerns. Sit to Stand (QC): 3 Chair/Iab-kr-Vlqpk Xfer(QC): 3 Occasional assist during standing or transfers for balance, cues for direction and safety. Patient tends to sit before turning completely and will often sit forcefully. Weight Bearing Right Lower Extremity: Right Full Weight Bearing Left Lower Extremity: Left Full Weight Bearing Gait Training Distance: 20'x3 Walk 10 feet (QC): 4 Gait Persons Needed: 1 Gait Assistive Device: FWW CGA, unsteady, uncoordinated steps with left leg Wheelchair Training Does the Pt Use a Wheelchair?: Yes Wheel 50 ft with 2 turns (QC): 4 Type of Wheelchair: Manual SBA, cues for obstacles Exercises NuStep Minutes: 15 NuStep Workload: 4 Treatments WC mobility, ambulation, transfers, LE strengthening Assessment Current Status: Poor Progress Patient needs cues for safety often during transfers, has left neglect PT Coping Machine Assembler Goals Longterm Goals PT Longterm Goals Time Frame: Oct 30, 2019 Roll Left & Right (QC): 6 Sit to Lying (QC): 6 Lying-Sitting on Side/Bed(QC): 6 Sit to Stand (QC): 6 Chair/Xps-ek-Hplwy Xfer(QC): 6 Toilet Transfer (QC): 6 Car Transfer (QC): 6 Does the Patient Walk: Yes Walk 10 feet (QC): 6 Walk 50ft with 2 Turns (QC): 6 Walk 150 ft (QC): 6 Walking 10ft on Uneven Surface: 6 1 Step (curb) (QC): 6 4 Steps (QC): 6 12 Steps (QC): 6 Picking up an Object (QC): 6 Does the Pt use WC or Scooter?: No Wheel 50 feet with 2 turns (QC: 09 Wheel 150 feet: 09 PT Plan Problem List Problem List: Activity Tolerance, Functional Strength, Safety, Balance, Gait, Transfer, Bed Mobility, ROM Treatment/Plan Treatment Plan: Continue Plan of Care Treatment Plan: Bed Mobility, Concurrent Therapy, Education, Functional Activity Marjorie, Functional Strength, Group Therapy, Gait, Safety, Therapeutic Exercise, Transfers Treatment Duration: Oct 30, 2019 Frequency: 6 times per week Estimated Hrs Per Day: 1.5 hours per day Patient and/or Family Agrees t: Yes Safety Risks/Education Patient Education: Gait Training, Transfer Techniques, Correct Positioning, W/C Management, Safety Issues Teaching Recipient: Patient Teaching Methods: Demonstration, Discussion Response to Teaching: Reinforcement Needed Time/GCodes Time In: 0900 Time Out: 1000 Total Billed Treatment Time: 60 Total Billed Treatment 1 visit GT 35' EX 15' WCH 10' CODEY LINDSAY PT Oct 19, 2019 09:57
[2019-10-19] MEDS: ENOXAPARIN 40 MG/0.4 ML (LOVENOX) SYR SC SCH ×2 (10:02→21:36)
--- NOTE | 2019-10-19 10:06 | Occupational Ther Daily Note ---
OT Current Status-Daily Note Subjective Pt seen in bed this am. Pt ready for tx session. Pt agrees to shower on this date, states she was "really looking forward to it last night." Pt denies pain. [id number] (15): Pt seen in bed, agreeable to OT tx session. Pt denies pain, though states earlier in day her elbow was achy. Mental Status/Objective Patient Orientation: Person, Place, Time, Situation, Normal For Age Attachments: Oxygen ADL-Treatment Therapy Code Descriptions/Definitions Functional [place] Measure: 0=Not Assessed/NA 4=Minimal Assistance 1=Total Assistance 5=Supervision or Setup 2=Maximal Assistance 6=Modified [place] 3=Moderate Assistance 7=Complete IndependenceSCALE: Activities may be completed with or without assistive devices. 5-Bikuaxxcuv-neccdja completes the activity by him/herself with no assistance from a helper. 5-Set-up or Clean-up Assistance-helper sets up or cleans up; patient completes activity. [place] assists only prior to or following the activity. 4-Supervision or Touching Assistance-helper provides verbal cues and/or to uching/steadying and/or contact guard assistance as patient completes activity. Assistance may be provided throughout the activity or intermittently. 3-Partial/Moderate Assistance-helper does LESS THAN HALF the effort. [place] lifts, holds or supports trunk or limbs, but provides less than half the effort. 2-Substantial/Maximal Assistance-helper does MORE THAN HALF the effort. [place] lifts or holds trunk or limbs and provides more than half the effort. 9-Ypfhzujcf-bkhyzo does ALL the effort. Patient does none of the effort to complete the activity. Or, the assistance of 2 or more helpers is required for the patient to complete the activity. If activity was not attempted, code reason: 7-Patient Refused. 9-Not Applicable-not attempted and the patient did not perform the activity before the current illness, exacerbation or injury. 10-Not Attempted due to Environmental Limitations-(lack of equipment, weather restraints, etc.). 88-Not Attempted due to Medical Conditions or Safety Concerns. Eating (QC): 6 Bathing Location: L Arm, R Arm, L Upper Leg, R Upper Leg, L Lower Leg (including foot), R Lower Leg (including foot), Chest, Abdomen, Buttocks, Perineal Area Shower/Bathe Self (QC): 4 (CGA in stance. SUP throughout on shower chair.) Upper Body Dressing (QC): 6 Lower Body Dressing (QC): 4 (CGA in stance and min cues for dressing tasks. 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 Pt completes EOB. ) Toileting Hygiene (QC): 4 (CGA in stance.) Toilet Transfer (QC): 4 (CGA from walker to commode (use of grab bars). ) Other Treatment Pt completes bed mob with SUP. Pt ambulates from bed to shower chair. Pt completes ADLs as above (increasing IND). Pt required min cues for dressing techniques. Pt brushes hair with BUE with min A for back of head and styling. Pt then remains in w/c post-session for PT session prep. Pt denies needs, call light on lap. [id number]: Pt bed mob with SUP. Completes w/c transfer with s/u and SBA. Pt then sits and pushed to gym. Pt completes 3 min arm bike exercise with mod resistance then reverses to complete an additional 2 min exercise. Pt expresses interest in arm arc. Pt educated on different activities to complete within the room or within therapy time to increase shoulder AROM. Pt pushed back to room, completes w/c to chair transfer with good problem solving/ planning (talks actions through prior to completion), pt transfers to L side without AE to chair with SBA. Pt left in chair with all needs met, chair alarm on, call light on lap. Education OT Patient Education: Correct positioning, Energy conservation, Modified ADL techniques, Safety issues, Transfer techniques, Use of adapted equipment Teaching Recipient: Patient Teaching Methods: Demonstration, Discussion Response to Teaching: Verbalize Understanding, Return Demonstration, Reinforcement Needed OT Short Term Goals Short Term Goals Time Frame: Oct 16, 2019 Toileting hygiene: 2 (met) Shower/bathe self: 3 (met) Upper body dressin (met) Lower body dressin (met) OT Correction Goals Document Photographer Goals Time Frame: Oct 30, 2019 Eating (QC): 6 (met) Oral Hygiene (QC): 6 (met) Toileting Hygiene (QC): 5 Shower/Bathe Self (QC): 5 Upper Body Dressing (QC): 6 (met) Lower Body Dressing (QC): 5 On/Off Footwear (QC): 5 (met) Additional Goals: 1-Demonstrate ADL Tasks, 2-Verbalize Understanding, 3- ImproveStrength/Marjorie 1=Demonstrate adherence to instructed precautions during ADL tasks. 2=Patient will verbalize/demonstrate understanding of assistive devices/modifications for ADL. 3=Patient will improve strength/tolerance for activity to enable patient to perform ADL's. OT Education/Plan Problem List/Assessment Assessment: Decreased Activ Tolerance, Decreased UE Strength, Dependent Transfers, Impaired Coordination, Impaired Funct Balance, Impaired I ADL's, Impaired Self-Care Skills Discharge Recommendations Plan/Recommendations: Continue POC Therapy Discharge Recommendati: 24 Hour Supervision, Assisted Living, Home & Family, Post Acute OT Treatment Plan/Plan of Care Treatment,Training & Education: Yes Patient would benefit from OT for education, treatment and training to promote independence in ADL's, mobility, safety and/or upper extremity function for ADL 's. Plan of Care: ADL Retraining, Functional Mobility, Group Exercise/Act as Ind, UE Funct Exercise/Act, UE Neuromus Re-Ed/Coord Treatment Duration: Oct 30, 2019 Frequency: At least 5 of 7 days/Wk (IRF) Estimated Hrs Per Day: 1.5 hours per day Rehab Potential: Fair Time/GCodes Start Time: 08:00 (1245) Stop Time: 09:00 (1300) Total Time Billed (hr/min): 75 Billed Treatment Time [id number]: 1, ADL 4 (60) 0626-3008: 1, EX (15) Total: 75 BARRY BYERS OTR Oct 19, 2019 10:06
[2019-10-19] MEDS: IBUPROFEN TABLET 200 MG TAB PO PRN (10:08)
--- NOTE | 2019-10-19 11:21 | PM&R Progress Note ---
Subjective HPI/CC On Admission Date Seen by Provider: Oct 19, 2019 Time Seen by Provider: 11:30 Subjective/Events-last exam BM moving after prune juice and laxatives and now regular Sodium level 130 so increased fluids to 2000cc/day 2 days ago Weakness of left side is getting better and better BP ok Overall very happy and optimistic with her progress Patient reluctant to go to NH at DC but there is no other option in the midst of COVID-19 crisis Checked med and labs Conferred with RN Reviewed therapy notes Review of Systems Neurological: Weakness, Numbness, Incoordination Objective Exam Vital Signs Vital Signs Date Time Temp Pulse Resp B/P (MAP) Pulse Ox O2 Delivery O2 Flow Rate FiO2 10/19/19 18:42 93 Nasal Cannula 2.00 10/19/19 16:00 36.0 86 16 136/86 (103) 10/18/19 10:55 28 Capillary Refill : Less Than 3 Seconds General Appearance: No Apparent Distress, WD/WN, Chronically ill, Obese HEENT: PERRL/EOMI, Normal ENT Inspection, Pharynx Normal Neck: Full Range of Motion, Normal Inspection, Non Tender, Supple, Carotid Bruit Respiratory: Chest Non Tender, Lungs Clear, Normal Breath Sounds, No Accessory Muscle Use, No Respiratory Distress, Decreased Breath Sounds Cardiovascular: Regular Rate, Rhythm, No Edema, No Gallop, No JVD, No Murmur, Normal Peripheral Pulses Gastrointestinal: Normal Bowel Sounds, No Organomegaly, No Pulsatile Mass, Non Tender, Soft Back: Normal Inspection, No CVA Tenderness, No Vertebral Tenderness Extremity: Normal Capillary Refill, Normal Inspection, Normal Range of Motion, Non Tender, No Calf Tenderness, No Pedal Edema Neurologic/Psychiatric: Alert, Oriented x3, No Motor/Sensory Deficits (except left arm and left leg 2-3/5), Normal Mood/Affect, permanent mold 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 FIM Transfers Therapy Code Descriptions/Definitions Functional [place] Measure: 0=Not Assessed/NA 4=Minimal Assistance 1=Total Assistance 5=Supervision or Setup 2=Maximal Assistance 6=Modified [place] 3=Moderate Assistance 7=Complete IndependenceSCALE: Activities may be completed with or without assistive devices. 1-Zmmcaxkwbr-ghqogzl completes the activity by him/herself with no assistance from a helper. 5-Set-up or Clean-up Assistance-helper sets up or cleans up; patient completes activity. [place] assists only prior to or following the activity. 4-Supervision or Touching Assistance-helper provides verbal cues and/or touching/steadying and/or contact guard assistance as patient completes activity. Assistance may be provided throughout the activity or intermittently. 3-Partial/Moderate Assistance-helper does LESS THAN HALF the effort. [place] lifts, holds or supports trunk or limbs, but provides less than half the effort. 2-Substantial/Maximal Assistance-helper does MORE THAN HALF the effort. [place] lifts or holds trunk or limbs and provides more than half the effort. 6-Klbkupgvf-kixcyp does ALL the effort. Patient does none of the effort to complete the activity. Or, the assistance of 2 or more helpers is required for the patient to complete the activity. If activity was not attempted, code reason: 7-Patient Refused. 9-Not Applicable-not attempted and the patient did not perform the activity before the current illness, exacerbation or injury. 10-Not Attempted due to Environmental Limitations-(lack of equipment, weather restraints, etc.). 88-Not Attempted due to Medical Conditions or Safety Concerns. Roll Left to Right (QC): 5 Sit to Lying (QC): 4 Sit to Stand (QC): 3 Chair/Fbh-kc-Jlnhl Xfer(QC): 3 Car Transfer (QC): 88 Gait Training Does the Patient Walk?: Yes Distance: 20'x3 Walk 10 feet (QC): 4 Walk 50 ft with 2 Turns(QC): 88 Walk 150 ft (QC): 88 Walking 10ft/uneven surface-QC: 88 Gait Persons Needed: 1 Gait Assistive Device: FWW Wheelchair Training Does the Pt Use a Wheelchair?: Yes Wheel 50 ft with 2 turns (QC): 4 Wheel 150 ft (QC): 09 Type of Wheelchair: Manual Stair Training 1 Step (curb) (QC): 88 4 Steps (QC): 88 12 Steps (QC): 88 Balance Picking up an Object (QC): 88 ADL-Treatment Eating (QC): 6 Oral Hygiene (QC): 6 (Pt completes IND in front of sink ) Bathing Location: L Arm, R Arm, L Upper Leg, R Upper Leg, L Lower Leg (including foot), R Lower Leg (including foot), Chest, Abdomen, Buttocks, Perineal Area Shower/Bathe Self (QC): 4 (CGA in stance. SUP throughout on shower chair.) Upper Body Dressing (QC): 6 Lower Body Dressing (QC): 4 (CGA in stance and min cues for dressing tasks. 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 Pt completes EOB. ) Toileting Hygiene (QC): 4 (CGA in stance.) Toilet Transfer (QC): 4 (CGA from walker to commode (use of grab bars). ) Assessment/Plan Assessment and Plan Assess & Plan/Chief Complaint Assessment: CVA w/left sided weakness now dramatically improved Current smoker COPD Cognitive deficit improved HTN DM Periodic N/V chronic TIA 05/05 Constipation resolved 10/14/19 Hyponatremia Plan: [place] L[facility] IRF protocol N/V management Hold Metformin due to N/V seems to be helping BM regimen to maintain Increase fluids to 2000cc/day (1) CVA (cerebral vascular accident) (2) Left-sided weakness (3) Tobacco abuse Status: Chronic (4) Stroke Status: Acute (5) DVT prophylaxis Status: Acute (6) COPD (chronic obstructive pulmonary disease) (7) Diabetes (8) Hyperlipemia (9) Hypertension (10) Leukocytosis Status: Acute (11) Hyponatremia Status: Acute (12) Smoker SUNNY ANDERSON DO Oct 19, 2019 11:20
--- NOTE | 2019-10-19 13:10 | Speech Therapy Daily Note ---
Speech Daily Progress Note Subjective Date Seen by Provider: Oct 19, 2019 Time Seen by Provider: 00:30 Patient was resting in her bed when I entered, however she was alert and participated well with therapy. Objective Patient completed safety awareness tasks related to her discharge with 85% given minimal cues. Assessment Assessment Current Status: Good Progress Treatment Plan Continue Plan of Care Speech Short Term Goals Short Term Goals Short Term Goals 1) Patient will complete memory tasks related to daily needs at 90% or greater with minimal cues. 2) Patient will complete safety awareness tasks related to daily needs at 90% or greater with minimal cues. 3) Patient will complete problem solving tasks related to daily needs at 90% or greater with minimal cues. Speech Imaging Manager Goals Imaging Manager Goals Patient will improve cognitive-communication necessary for safety and daily living tasks with minimal assist. Speech-Plan Patient/Family Goals Patient/Family Goals: Patient will most likely discharge to a local SNF until she is able to return to her apartment. Treatment Plan Speech Therapy Treatment Plan: Continue Plan of Care Treatment Duration: Oct 10, 2019 Frequency: 5 times per week Estimated Hrs Per Day: .5 hour per day Rehab Potential: Fair Barriers to Learning: Patient's affects of her recent CVA Pt/Family Agrees to Plan: Yes Safety Risks/Education Teaching Recipient: Patient Teaching Methods: Demonstration, Discussion Response to Teaching: Verbalize Understanding, Return Demonstration Education Topics Provided: Continued safety within her room and while on the ARU Time Speech Therapy Time In: 11:00 Speech Therapy Time Out: 11:30 Total Billed Time: 30 Billed Treatment Time 1, JHOANA Harris Oct 19, 2019 13:10
--- NOTE | 2019-10-19 14:06 | Physical Therapy Daily Note ---
PT Daily Note-Current Subjective Patient in recliner pre tx, agrees to PT, has no complaints of pain. Appearance Patient in recliner post tx with nurse call, phone, tray, all needs met. Chair alarm on. Mental Status Patient Orientation: Person, Place, Situation Attachments: Oxygen Transfers SCALE: Activities may be completed with or without assistive devices. 3-Dydleivlbh-lmpiajh completes the activity by him/herself with no assistance from a helper. 5-Set-up or Clean-up Assistance-helper sets up or cleans up; patient completes activity. [place] assists only prior to or following the activity. 4-Supervision or Touching Assistance-helper provides verbal cues and/or touching/steadying and/or contact guard assistance as patient completes activity. Assistance may be provided throughout the activity or intermittently. 3-Partial/Moderate Assistance-helper does LESS THAN HALF the effort. [place] lifts, holds or supports trunk or limbs, but provides less than half the effort. 2-Substantial/Maximal Assistance-helper does MORE THAN HALF the effort. [place] lifts or holds trunk or limbs and provides more than half the effort. 6-Igkrqaflz-cxrovv does ALL the effort. Patient does none of the effort to complete the activity. Or, the assistance of 2 or more helpers is required for the patient to complete the activity. If activity was not attempted, code reason: 7-Patient Refused. 9-Not Applicable-not attempted and the patient did not perform the activity before the current illness, exacerbation or injury. 10-Not Attempted due to Environmental Limitations-(lack of equipment, weather restraints, etc.). 88-Not Attempted due to Medical Conditions or Safety Concerns. 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 PT Alf Goals Time Frame: Oct 30, 2019 Roll Left & Right (QC): 6 Sit to Lying (QC): 6 Lying-Sitting on Side/Bed(QC): 6 Sit to Stand (QC): 6 Chair/Qay-ox-Pnngr Xfer(QC): 6 Toilet Transfer (QC): 6 Car Transfer (QC): 6 Does the Patient Walk: Yes Walk 10 feet (QC): 6 Walk 50ft with 2 Turns (QC): 6 Walk 150 ft (QC): 6 Walking 10ft on Uneven Surface: 6 1 Step (curb) (QC): 6 4 Steps (QC): 6 12 Steps (QC): 6 Picking up an Object (QC): 6 Does the Pt use WC or Scooter?: No Wheel 50 feet with 2 turns (QC: 09 Wheel 150 feet: 09 PT Plan Problem List Problem List: Activity Tolerance, Functional Strength, Safety, Balance, Gait, Transfer, Bed Mobility, ROM Treatment/Plan Treatment Plan: Continue Plan of Care Treatment Plan: Bed Mobility, Concurrent Therapy, Education, Functional Activity Marjorie, Functional Strength, Group Therapy, Gait, Safety, Therapeutic Exercise, Transfers Treatment Duration: Oct 30, 2019 Frequency: 6 times per week Estimated Hrs Per Day: 1.5 hours per day Patient and/or Family Agrees t: Yes Safety Risks/Education Patient Education: Correct Positioning, Safety Issues Teaching Recipient: Patient Teaching Methods: Demonstration, Discussion Response to Teaching: Reinforcement Needed Time/GCodes Time In: 1350 Time Out: 1405 Total Billed Treatment Time: 15 Total Billed Treatment 1 visit EX Viridiana' CODEY LINDSAY PT Oct 19, 2019 14:06
[2019-10-19 16:00] VITALS: BP 136/86
[2019-10-19] MEDS: MULTIVIT W/MINERALS TAB (THERAGRAN M) PO SCH (21:36)
[2019-10-19] MEDS: ASPIRIN E.C. 81 MG (ECOTRIN) TAB PO SCH (21:36)
[2019-10-20] MEDS: inSUlin ASPART (NovoLOG) 1 UNIT/0.01 ML (CHARGE PER UNIT) SC SCH ×4 (05:35→20:17)
[2019-10-20 06:00] VITALS: BP 144/81
[2019-10-20] MEDS: LEVOTHYROXINE 75 MCG (LEVOTHROID) TABLET PO SCH (06:37)
[2019-10-20] MEDS: LEVOTHYROXINE 100 MCG (LEVOTHROID) TAB PO SCH (06:37)
[2019-10-20] MEDS: RT-ALBUTEROL/IPRATROPIUM 3 ML (DUONEB) VIAL INH SCH ×4 (07:53→18:44)
[2019-10-20 08:19] VITALS: BP 147/92
[2019-10-20] MEDS: PIOGLITAZONE 30MG (ACTOS) TAB PO SCH (08:20)
[2019-10-20] MEDS: PANTOPRAZOLE 40 MG (PROTONIX) TAB PO SCH (08:20)
[2019-10-20] MEDS: OMEGA 3 (FISH OIL) 1000 MG CAP PO SCH (08:20)
[2019-10-20] MEDS: VITAMIN D3 25 MCG (1,000 UNITS) TABLET PO SCH ×3 (08:20→21:29)
[2019-10-20] MEDS: CLOPIDOGREL 75 MG (PLAVIX) TABLET PO SCH (08:20)
[2019-10-20] MEDS: lisINopril 40 MG (PRINIVIL) TABLET PO SCH (08:20)
[2019-10-20] MEDS: SENNA W/DOCUSATE (SENOKOT S) TABLET PO SCH ×2 (08:21→21:30)
[2019-10-20] MEDS: ENOXAPARIN 40 MG/0.4 ML (LOVENOX) SYR SC SCH ×2 (08:21→21:29)
[2019-10-20] MEDS: DOCUSATE SODIUM 100 MG (COLACE) CAP PO SCH ×2 (08:21→21:30)
[2019-10-20] MEDS: polyethylene glycoL POWDER 17 GM (MIRALAX) PACK PO SCH ×2 (08:21→21:30)
[2019-10-20] MEDS: IBUPROFEN TABLET 200 MG TAB PO PRN (08:30)
--- NOTE | 2019-10-20 09:25 | Physical Therapy Daily Note ---
PT Daily Note-Current Subjective Pt. agrees to Rx, feels she has made much progress and wishes she didnt have to be attached to O2. Nurse oks trials titrating O2. Pain Location: No Pain Reported Mental Status Patient Orientation: Person, Place, Time, Situation Attachments: Oxygen (2 titrated to 0 L) Transfers SCALE: Activities may be completed with or without assistive devices. 7-Sinbsbzjlo-ejfiwuh completes the activity by him/herself with no assistance from a helper. 5-Set-up or Clean-up Assistance-helper sets up or cleans up; patient completes activity. [place] assists only prior to or following the activity. 4-Supervision or Touching Assistance-helper provides verbal cues and/or touching/steadying and/or contact guard assistance as patient completes activity. Assistance may be provided throughout the activity or intermittently. 3-Partial/Moderate Assistance-helper does LESS THAN HALF the effort. [place] lifts, holds or supports trunk or limbs, but provides less than half the effort. 2-Substantial/Maximal Assistance-helper does MORE THAN HALF the effort. [place] lifts or holds trunk or limbs and provides more than half the effort. 9-Xqtgdhthl-cqujdc does ALL the effort. Patient does none of the effort to complete the activity. Or, the assistance of 2 or more helpers is required for the patient to complete the activity. If activity was not attempted, code reason: 7-Patient Refused. 9-Not Applicable-not attempted and the patient did not perform the activity before the current illness, exacerbation or injury. 10-Not Attempted due to Environmental Limitations-(lack of equipment, weather restraints, etc.). 88-Not Attempted due to Medical Conditions or Safety Concerns. Roll Left & Right (QC): 5 Sit to Lying (QC): 5 Sit to Stand (QC): 5 Chair/Xkj-fq-Zdixq Xfer(QC): 5 instruction for use of hands back on chair for all TRFs and to set brakes on w/c for all TRFs in out Weight Bearing Right Lower Extremity: Right Full Weight Bearing Left Lower Extremity: Left Full Weight Bearing Gait Training Does the Patient Walk?: Yes Walk 10 feet (QC): 4 Gait Persons Needed: 1 Gait Assistive Device: FWW w/c to follow, 35ftx2 , CGA to min assist, instructed in step length, pt. states her left knee and leg got weak and difficult to control. c/o fatigue at end of gait Wheelchair Training Does the Pt Use a Wheelchair?: Yes Wheel 50 ft with 2 turns (QC): 4 Type of Wheelchair: Manual assist to affix brakes, instruction for safe backing but overall improved in w/c mobility ross strength and management of left U&L ext Exercises Seated Therapy Exercises: Ankle pumps, Sit to stand, Long arc quads, Hip flexion Seated Reps: 8 Treatments O2 gradually titrated down to 0 with O2 sats steady at 93-95%, nursing informed and okd pt. off O2 at end of Rx as she was in bed Assessment Current Status: Good Progress titrated off O2 with all sats >90% and no SOB, pt. 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 Time Frame: Oct 30, 2019 Roll Left & Right (QC): 6 Sit to Lying (QC): 6 Lying-Sitting on Side/Bed(QC): 6 Sit to Stand (QC): 6 Chair/Xzp-ap-[place] Xfer(QC): 6 Toilet Transfer (QC): 6 Car Transfer (QC): 6 Does the Patient Walk: Yes Walk 10 feet (QC): 6 Walk 50ft with 2 Turns (QC): 6 Walk 150 ft (QC): 6 Walking 10ft on Uneven Surface: 6 1 Step (curb) (QC): 6 4 Steps (QC): 6 12 Steps (QC): 6 Picking up an Object (QC): 6 Does the Pt use WC or Scooter?: No Wheel 50 feet with 2 turns (QC: 09 Wheel 150 feet: 09 PT Plan Treatment/Plan Treatment Plan: Continue Plan of Care Treatment Plan: Bed Mobility, Concurrent Therapy, Education, Functional Activity Marjorie, Functional Strength, Group Therapy, Gait, Safety, Therapeutic Exercise, Transfers Treatment Duration: Oct 30, 2019 Frequency: 6 times per week Estimated Hrs Per Day: 1.5 hours per day Patient and/or Family Agrees t: Yes Safety Risks/Education Patient Education: Gait Training, Transfer Techniques, Correct Positioning, W/C Management, Disease Process, Safety Issues Teaching Recipient: Patient Teaching Methods: Demonstration, Discussion Response to Teaching: Verbalize Understanding, Return Demonstration, Reinforcement Needed Time/GCodes Time In: 845 Time Out: 915 Total Billed Treatment Time: 30 Total Billed Treatment 1,GT20,FA10 LUEBBER, ELISABETH A LAMBSKIN TRIMMER Oct 20, 2019 09:25
--- NOTE | 2019-10-20 11:41 | PM&R Progress Note ---
Subjective HPI/CC On Admission Date Seen by Provider: Oct 20, 2019 Time Seen by Provider: 11:45 Subjective/Events-last exam BM moving after prune juice and laxatives and now regular Sodium level 130 so increased fluids to 2000cc/day 3 days ago Weakness of left side is getting better and better BP ok Overall very happy and optimistic with her progress Patient reluctant to go to NH at [place] but there is no other option in the midst of COVID-19 crisis Cognitively she is much improved Checked med and labs Conferred with RN Reviewed therapy notes Review of Systems Neurological: Weakness, Numbness, Incoordination Objective Exam Vital Signs Vital Signs Date Time Temp Pulse Resp B/P (MAP) Pulse Ox O2 Delivery O2 Flow Rate FiO2 10/20/19 14:24 91 Nasal Cannula 1.00 10/20/19 08:19 89 147/92 (110) 10/20/19 06:00 36.4 20 10/18/19 10:55 28 Capillary Refill : Less Than 3 Seconds General Appearance: No Apparent Distress, WD/WN, Chronically ill, Obese HEENT: PERRL/EOMI, Normal ENT Inspection, Pharynx Normal Neck: Full Range of Motion, Normal Inspection, Non Tender, Supple, Carotid Bruit Respiratory: Chest Non Tender, Lungs Clear, Normal Breath Sounds, No Accessory Muscle Use, No Respiratory Distress, Decreased Breath Sounds Cardiovascular: Regular Rate, Rhythm, No Edema, No Gallop, No JVD, No Murmur, Normal Peripheral Pulses Gastrointestinal: Normal Bowel Sounds, No Organomegaly, No Pulsatile Mass, Non Tender, Soft Back: Normal Inspection, No CVA Tenderness, No Vertebral Tenderness Extremity: Normal Capillary Refill, Normal Inspection, Normal Range of Motion, Non Tender, No Calf Tenderness, No Pedal Edema Neurologic/Psychiatric: Alert, Oriented x3, No Motor/Sensory Deficits (except left arm and left leg 2-3/5), Normal Mood/Affect, hematology 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 FIM Transfers Therapy Code Descriptions/Definitions Functional [place] Measure: 0=Not Assessed/NA 4=Minimal Assistance 1=Total Assistance 5=Supervision or Setup 2=Maximal Assistance 6=Modified [place] 3=Moderate Assistance 7=Complete IndependenceSCALE: Activities may be completed with or without assistive devices. 1-Loydejueqe-avbldrj completes the activity by him/herself with no assistance from a helper. 5-Set-up or Clean-up Assistance-helper sets up or cleans up; patient completes activity. [place] assists only prior to or following the activity. 4-Supervision or Touching Assistance-helper provides verbal cues and/or touching/steadying and/or contact guard assistance as patient completes activity. Assistance may be provided throughout the activity or intermittently. 3-Partial/Moderate Assistance-helper does LESS THAN HALF the effort. [place] lifts, holds or supports trunk or limbs, but provides less than half the effort. 2-Substantial/Maximal Assistance-helper does MORE THAN HALF the effort. [place] lifts or holds trunk or limbs and provides more than half the effort. 8-Xqkyonzvr-uetsbr does ALL the effort. Patient does none of the effort to complete the activity. Or, the assistance of 2 or more helpers is required for the patient to complete the activity. If activity was not attempted, code reason: 7-Patient Refused. 9-Not Applicable-not attempted and the patient did not perform the activity before the current illness, exacerbation or injury. 10-Not Attempted due to Environmental Limitations-(lack of equipment, weather restraints, etc.). 88-Not Attempted due to Medical Conditions or Safety Concerns. Roll Left to Right (QC): 5 Sit to Lying (QC): 5 Sit to Stand (QC): 5 Chair/Pkn-az-Elxgc Xfer(QC): 5 Car Transfer (QC): 88 Gait Training Does the Patient Walk?: Yes Distance: 20'x3 Walk 10 feet (QC): 4 Walk 50 ft with 2 Turns(QC): 88 Walk 150 ft (QC): 88 Walking 10ft/uneven surface-QC: 88 Gait Persons Needed: 1 Gait Assistive Device: FWW Wheelchair Training Does the Pt Use a Wheelchair?: Yes Wheel 50 ft with 2 turns (QC): 4 Wheel 150 ft (QC): 09 Type of Wheelchair: Manual Stair Training 1 Step (curb) (QC): 88 4 Steps (QC): 88 12 Steps (QC): 88 Balance Picking up an Object (QC): 88 ADL-Treatment Eating (QC): 6 Oral Hygiene (QC): 6 (Pt completes IND in front of sink ) Bathing Location: L Arm, R Arm, L Upper Leg, R Upper Leg, L Lower Leg (including foot), R Lower Leg (including foot), Chest, Abdomen, Buttocks, Perineal Area Shower/Bathe Self (QC): 4 (CGA in stance. SUP throughout on shower chair.) Upper Body Dressing (QC): 6 Lower Body Dressing (QC): 4 (CGA in stance and min cues for dressing tasks. 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 Pt completes EOB. ) Toileting Hygiene (QC): 4 (CGA in stance.) Toilet Transfer (QC): 4 (CGA from walker to commode (use of grab bars). ) Assessment/Plan Assessment and Plan Assess & Plan/Chief Complaint Assessment: CVA w/left sided weakness now dramatically improved Current smoker COPD Cognitive deficit improved HTN DM Periodic N/V chronic TIA 05/05 Constipation resolved 10/14/19 Hyponatremia Plan: [place] LEMA IRF protocol N/V management Hold Metformin due to N/V seems to be helping BM regimen to maintain Increase fluids to 2000cc/day Smoking cessation discussed (1) CVA (cerebral vascular accident) (2) Left-sided weakness (3) Tobacco abuse Status: Chronic (4) Stroke Status: Acute (5) DVT prophylaxis Status: Acute (6) COPD (chronic obstructive pulmonary disease) (7) Diabetes (8) Hyperlipemia (9) Hypertension (10) Leukocytosis Status: Acute (11) Hyponatremia Status: Acute (12) Smoker SUNNY ANDERSON DO Oct 20, 2019 11:41
[2019-10-20 18:06] VITALS: BP 124/80
[2019-10-20] MEDS: ASPIRIN E.C. 81 MG (ECOTRIN) TAB PO SCH (21:29)
[2019-10-20] MEDS: MULTIVIT W/MINERALS TAB (THERAGRAN M) PO SCH (21:29)
[2019-10-21] MEDS: inSUlin ASPART (NovoLOG) 1 UNIT/0.01 ML (CHARGE PER UNIT) SC SCH ×4 (05:45→20:12)
[2019-10-21 05:57] VITALS: BP 129/77
[2019-10-21] MEDS: LEVOTHYROXINE 100 MCG (LEVOTHROID) TAB PO SCH (06:43)
[2019-10-21] MEDS: LEVOTHYROXINE 75 MCG (LEVOTHROID) TABLET PO SCH (06:43)
[2019-10-21] MEDS: RT-ALBUTEROL/IPRATROPIUM 3 ML (DUONEB) VIAL INH SCH ×4 (06:47→18:39)
[2019-10-21 06:49] VITALS: BP 129/77
[2019-10-21] MEDS: OMEGA 3 (FISH OIL) 1000 MG CAP PO SCH (08:00)
[2019-10-21] MEDS: PIOGLITAZONE 30MG (ACTOS) TAB PO SCH (08:00)
[2019-10-21] MEDS: PANTOPRAZOLE 40 MG (PROTONIX) TAB PO SCH (08:00)
[2019-10-21] MEDS: VITAMIN D3 25 MCG (1,000 UNITS) TABLET PO SCH ×3 (08:00→20:07)
[2019-10-21] MEDS: CLOPIDOGREL 75 MG (PLAVIX) TABLET PO SCH (08:01)
[2019-10-21] MEDS: SENNA W/DOCUSATE (SENOKOT S) TABLET PO SCH ×2 (08:01→20:06)
[2019-10-21] MEDS: DOCUSATE SODIUM 100 MG (COLACE) CAP PO SCH ×2 (08:01→20:06)
[2019-10-21] MEDS: polyethylene glycoL POWDER 17 GM (MIRALAX) PACK PO SCH ×2 (08:01→20:06)
[2019-10-21] MEDS: lisINopril 40 MG (PRINIVIL) TABLET PO SCH (08:01)
[2019-10-21] MEDS: ENOXAPARIN 40 MG/0.4 ML (LOVENOX) SYR SC SCH ×2 (08:02→20:07)
[2019-10-21 08:03] VITALS: BP 118/76
--- NOTE | 2019-10-21 12:09 | PM&R Progress Note ---
Subjective HPI/CC On Admission Date Seen by Provider: Oct 21, 2019 Time Seen by Provider: 12:00 Subjective/Events-last exam BM normal Will lift fluid restriction today Weakness of left side is getting better and better BP ok Overall very happy and optimistic with her progress Patient reluctant to go to NH at [place] but there is no other option in the midst of COVID-19 crisis Cognitively she is much improved Checked med and labs Conferred with RN Reviewed therapy notes Review of Systems General: Fatigue Neurological: Weakness Objective Exam Vital Signs Vital Signs Date Time Temp Pulse Resp B/P (MAP) Pulse Ox O2 Delivery O2 Flow Rate FiO2 10/21/19 14:30 90 Room Air 10/21/19 14:14 87 18 10/21/19 09:22 1.00 10/21/19 08:03 118/76 (90) 10/21/19 06:49 36.3 10/18/19 10:55 28 Capillary Refill : Less Than 3 Seconds General Appearance: No Apparent Distress, WD/WN, Chronically ill, Obese HEENT: PERRL/EOMI, Normal ENT Inspection, Pharynx Normal Neck: Full Range of Motion, Normal Inspection, Non Tender, Supple, Carotid Bruit Respiratory: Chest Non Tender, Lungs Clear, Normal Breath Sounds, No Accessory Muscle Use, No Respiratory Distress, Decreased Breath Sounds Cardiovascular: Regular Rate, Rhythm, No Edema, No Gallop, No JVD, No Murmur, Normal Peripheral Pulses Gastrointestinal: Normal Bowel Sounds, No Organomegaly, No Pulsatile Mass, Non Tender, Soft Back: Normal Inspection, No CVA Tenderness, No Vertebral Tenderness Extremity: Normal Capillary Refill, Normal Inspection, Normal Range of Motion, Non Tender, No Calf Tenderness, No Pedal Edema Neurologic/Psychiatric: Alert, Oriented x3, No Motor/Sensory Deficits (except left arm and left leg 2-3/5), Normal 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 FIM Transfers Therapy Code Descriptions/Definitions Functional [place] Measure: 0=Not Assessed/NA 4=Minimal Assistance 1=Total Assistance 5=Supervision or Setup 2=Maximal Assistance 6=Modified [place] 3=Moderate Assistance 7=Complete IndependenceSCALE: Activities may be completed with or without assistive devices. 0-Fwzhjpfbrt-sfrrujn completes the activity by him/herself with no assistance from a helper. 5-Set-up or Clean-up Assistance-helper sets up or cleans up; patient completes activity. [place] assists only prior to or following the activity. 4-Supervision or Touching Assistance-helper provides verbal cues and/or touching/steadying and/or contact guard assistance as patient completes activity. Assistance may be provided throughout the activity or intermittently. 3-Partial/Moderate Assistance-helper does LESS THAN HALF the effort. [place] lifts, holds or supports trunk or limbs, but provides less than half the effort. 2-Substantial/Maximal Assistance-helper does MORE THAN HALF the effort. [place] lifts or holds trunk or limbs and provides more than half the effort. 5-Bnfhvkxyw-yprhpq does ALL the effort. Patient does none of the effort to complete the activity. Or, the assistance of 2 or more helpers is required for the patient to complete the activity. If activity was not attempted, code reason: 7-Patient Refused. 9-Not Applicable-not attempted and the patient did not perform the activity before the current illness, exacerbation or injury. 10-Not Attempted due to Environmental Limitations-(lack of equipment, weather restraints, etc.). 88-Not Attempted due to Medical Conditions or Safety Concerns. Roll Left to Right (QC): 5 Sit to Lying (QC): 5 Sit to Stand (QC): 5 Chair/Sgi-gu-Ylfny Xfer(QC): 5 Car Transfer (QC): 88 Gait Training Does the Patient Walk?: Yes Distance: 20'x3 Walk 10 feet (QC): 4 Walk 50 ft with 2 Turns(QC): 88 Walk 150 ft (QC): 88 Walking 10ft/uneven surface-QC: 88 Gait Persons Needed: 1 Gait Assistive Device: FWW Wheelchair Training Does the Pt Use a Wheelchair?: Yes Wheel 50 ft with 2 turns (QC): 4 Wheel 150 ft (QC): 09 Type of Wheelchair: Manual Stair Training 1 Step (curb) (QC): 88 4 Steps (QC): 88 12 Steps (QC): 88 Balance Picking up an Object (QC): 88 ADL-Treatment Eating (QC): 6 Oral Hygiene (QC): 6 (Pt completes IND in front of sink ) Bathing Location: L Arm, R Arm, L Upper Leg, R Upper Leg, L Lower Leg (including foot), R Lower Leg (including foot), Chest, Abdomen, Buttocks, Perineal Area Shower/Bathe Self (QC): 4 (CGA in stance. SUP throughout on shower chair.) Upper Body Dressing (QC): 6 Lower Body Dressing (QC): 4 (CGA in stance and min cues for dressing tasks. 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 Pt completes EOB. ) Toileting Hygiene (QC): 4 (CGA in stance.) Toilet Transfer (QC): 4 (CGA from walker to commode (use of grab bars). ) Assessment/Plan Assessment and Plan Assess & Plan/Chief Complaint Assessment: CVA w/left sided weakness now dramatically improved Current smoker COPD Cognitive deficit improved HTN DM Periodic N/V chronic TIA 05/05 Constipation resolved 10/14/19 Hyponatremia Plan: [place] fluid restriction IRF protocol N/V management Hold Metformin due to N/V seems to be helping BM regimen to maintain Increase fluids to 2000cc/day Smoking cessation discussed (1) CVA (cerebral vascular accident) (2) Left-sided weakness (3) Tobacco abuse Status: Chronic (4) Stroke Status: Acute (5) DVT prophylaxis Status: Acute (6) COPD (chronic obstructive pulmonary disease) (7) Diabetes (8) Hyperlipemia (9) Hypertension (10) Leukocytosis Status: Acute (11) Hyponatremia Status: Acute (12) Smoker SUNNY ANDERSON DO Oct 21, 2019 12:09
--- NOTE | 2019-10-21 12:20 | NUR ---
DC FLUID RESTRICTION PER DR. ANDERSON.
[2019-10-21 17:05] VITALS: BP 119/83
[2019-10-21] MEDS: MULTIVIT W/MINERALS TAB (THERAGRAN M) PO SCH (20:06)
[2019-10-21] MEDS: ASPIRIN E.C. 81 MG (ECOTRIN) TAB PO SCH (20:07)
[2019-10-22 05:07] VITALS: BP 150/88
[2019-10-22] MEDS: inSUlin ASPART (NovoLOG) 1 UNIT/0.01 ML (CHARGE PER UNIT) SC SCH ×4 (05:10→20:55)
[2019-10-22 05:39] LABS: BASOPHILS # (AUTO) 0.1 10^3/uL (0.0-0.1); BASOPHILS % (AUTO) 1 % (0-10); EOSINOPHILS # (AUTO) 0.3 10^3/uL (0.0-0.3); EOSINOPHILS % (AUTO) 3 % (0-10); HEMATOCRIT 42 % (35-52); HEMOGLOBIN 14.1 G/DL (11.5-16.0); LYMPHOCYTES # (AUTO) 2.3 X 10^3 (1.0-4.0); LYMPHOCYTES % (AUTO) 21 % (12-44); MEAN CORPUSCULAR HEMOGLOBIN 30 PG (25-34); MEAN CORPUSCULAR HGB CONC 34 G/DL (32-36); MEAN CORPUSCULAR VOLUME 88 FL (80-99); MEAN PLATELET VOLUME 10.5 FL (7.4-10.4); MONOCYTES # (AUTO) 1.2 X 10^3 (0.0-1.0); MONOCYTES % (AUTO) 11 % (0-12); NEUTROPHILS # (AUTO) 6.9 X 10^3 (1.8-7.8); NEUTROPHILS % (AUTO) 64 % (42-75); PLATELET COUNT 395 10^3/uL (130-400); RED CELL DISTRIBUTION WIDTH 14.2 % (10.0-14.5); WHITE BLOOD COUNT 10.8 10^3/uL (4.3-11.0)
[2019-10-22] MEDS: LEVOTHYROXINE 100 MCG (LEVOTHROID) TAB PO SCH (05:45)
[2019-10-22] MEDS: LEVOTHYROXINE 75 MCG (LEVOTHROID) TABLET PO SCH (05:45)
[2019-10-22 06:16] LABS: ALANINE AMINOTRANSFERASE 17 U/L (0-55); ALBUMIN 4.1 GM/DL (3.2-4.5); ALKALINE PHOSPHATASE 81 U/L (40-136); BILIRUBIN,TOTAL 0.3 MG/DL (0.1-1.0); BUN/CREATININE RATIO 17; CALCIUM 9.9 MG/DL (8.5-10.1); CARBON DIOXIDE 26 MMOL/L (21-32); CHLORIDE 94 MMOL/L (98-107); CREATININE SERUM 0.81 MG/DL (0.60-1.30); GFR ESTIMATED > 60; GLUCOSE 155 MG/DL (70-105); POTASSIUM 5.1 MMOL/L (3.6-5.0); SODIUM 131 MMOL/L (135-145); TOTAL PROTEIN 6.8 GM/DL (6.4-8.2)
[2019-10-22] MEDS: RT-ALBUTEROL/IPRATROPIUM 3 ML (DUONEB) VIAL INH SCH ×4 (06:46→18:19)
[2019-10-22] MEDS: PANTOPRAZOLE 40 MG (PROTONIX) TAB PO SCH (09:35)
[2019-10-22] MEDS: ENOXAPARIN 40 MG/0.4 ML (LOVENOX) SYR SC SCH ×2 (09:35→20:55)
[2019-10-22] MEDS: PIOGLITAZONE 30MG (ACTOS) TAB PO SCH (09:35)
[2019-10-22] MEDS: CLOPIDOGREL 75 MG (PLAVIX) TABLET PO SCH (09:35)
[2019-10-22] MEDS: VITAMIN D3 25 MCG (1,000 UNITS) TABLET PO SCH ×3 (09:35→20:55)
[2019-10-22] MEDS: OMEGA 3 (FISH OIL) 1000 MG CAP PO SCH (09:35)
[2019-10-22] MEDS: DOCUSATE SODIUM 100 MG (COLACE) CAP PO SCH ×2 (09:36→20:48)
[2019-10-22] MEDS: polyethylene glycoL POWDER 17 GM (MIRALAX) PACK PO SCH ×2 (09:36→20:48)
[2019-10-22] MEDS: lisINopril 40 MG (PRINIVIL) TABLET PO SCH (09:46)
[2019-10-22] MEDS: SENNA W/DOCUSATE (SENOKOT S) TABLET PO SCH ×2 (09:46→20:48)
--- NOTE | 2019-10-22 10:04 | Physical Therapy Daily Note ---
PT Daily Note-Current Subjective Pt. agrees to Rx but states her left arm and leg are not cooperating like they had before and she is tired. Pt. states again that she does not wear O2 at home and hopes not to wear it here today. This was discussed with nursing who approves pt. to work with PT without O2 as long as O2 sats are > 90% Pain Location: No Pain Reported Mental Status Patient Orientation: Normal For Age Transfers SCALE: Activities may be completed with or without assistive devices. 3-Ljowlwquzv-awjzyap completes the activity by him/herself with no assistance from a helper. 5-Set-up or Clean-up Assistance-helper sets up or cleans up; patient completes activity. [place] assists only prior to or following the activity. 4-Supervision or Touching Assistance-helper provides verbal cues and/or touching/steadying and/or contact guard assistance as patient completes activity. Assistance may be provided throughout the activity or intermittently. 3-Partial/Moderate Assistance-helper does LESS THAN HALF the effort. [place] lifts, holds or supports trunk or limbs, but provides less than half the effort. 2-Substantial/Maximal Assistance-helper does MORE THAN HALF the effort. [place] lifts or holds trunk or limbs and provides more than half the effort. 9-Qiqilckii-hlkhxj does ALL the effort. Patient does none of the effort to complete the activity. Or, the assistance of 2 or more helpers is required for the patient to complete the activity. If activity was not attempted, code reason: 7-Patient Refused. 9-Not Applicable-not attempted and the patient did not perform the activity before the current illness, exacerbation or injury. 10-Not Attempted due to Environmental Limitations-(lack of equipment, weather restraints, etc.). 88-Not Attempted due to Medical Conditions or Safety Concerns. Roll Left & Right (QC): 5 Sit to Lying (QC): 5 Sit to Stand (QC): 5 Chair/Ikx-hy-Nanvx Xfer(QC): 4 takes some time but is able to TRF sit to supine with instruction and uses right to assist left. Pt. also needs instruction for bridging to bring bottom to left and center in bed Weight Bearing Right Lower Extremity: Right Full Weight Bearing Left Lower Extremity: Left Full Weight Bearing Gait Training Does the Patient Walk?: Yes Walk 10 feet (QC): 4 Gait Persons Needed: 1 Gait Assistive Device: FWW pt. with difficulty clearing left foot today and advancing it but conts to attempt to advance right LE in unsafe manner. pt. fatigued sooner today Wheelchair Training Does the Pt Use a Wheelchair?: Yes Wheel 50 ft with 2 turns (QC): 4 Type of Wheelchair: Manual needs assist to brake w/c and to use left leg and foot to advance affectively. Exercises Supine Ex: Ankle pumps, Rolling, Heel Slides, Scooting, Hip abd/add Supine Reps: 12 Seated Therapy Exercises: Ankle pumps, Sit to stand, Long arc quads, Hip flexion Seated Reps: 15 NuStep Minutes: 10 NuStep Workload: 2 Treatments O2 on room air for whole Rx at 94% and > Assessment Current Status: Good Progress fatigues quickly, feels she is having increased difficulty with L U&L extr control today PT Final Block Press Operator Goals Final Block Press Operator Goals PT Final Block Press Operator Goals Time Frame: Oct 30, 2019 Roll Left & Right (QC): 6 Sit to Lying (QC): 6 Lying-Sitting on Side/Bed(QC): 6 Sit to Stand (QC): 6 Chair/Sce-ik-Cyywg Xfer(QC): 6 Toilet Transfer (QC): 6 Car Transfer (QC): 6 Does the Patient Walk: Yes Walk 10 feet (QC): 6 Walk 50ft with 2 Turns (QC): 6 Walk 150 ft (QC): 6 Walking 10ft on Uneven Surface: 6 1 Step (curb) (QC): 6 4 Steps (QC): 6 12 Steps (QC): 6 Picking up an Object (QC): 6 Does the Pt use WC or Scooter?: No Wheel 50 feet with 2 turns (QC: 09 Wheel 150 feet: 09 PT Plan Treatment/Plan Treatment Plan: Continue Plan of Care Treatment Plan: Bed Mobility, Concurrent Therapy, Education, Functional Activity Marjorie, Functional Strength, Group Therapy, Gait, Safety, Therapeutic Exercise, Transfers Treatment Duration: Oct 30, 2019 Frequency: 6 times per week Estimated Hrs Per Day: 1.5 hours per day Patient and/or Family Agrees t: Yes Safety Risks/Education Patient Education: Gait Training, Transfer Techniques, Correct Positioning, W/C Management, Safety Issues Teaching Recipient: Patient Teaching Methods: Demonstration, Discussion Response to Teaching: Verbalize Understanding, Return Demonstration, Reinforcement Needed Time/GCodes Time In: 900 Time Out: 1000 Total Billed Treatment Time: 60 Total Billed Treatment 1,GT25m,WCH15m,EX20m ELISABETH PARRA RETAIL LOAN ORIGINATOR Oct 22, 2019 10:04
--- NOTE | 2019-10-22 10:39 | PM&R Progress Note ---
Subjective HPI/CC On Admission Date Seen by Provider: Oct 22, 2019 Time Seen by Provider: 10:45 Subjective/Events-last exam BM normal with prune juice No more fluid restriction now Weakness of left side is getting better and better BP ok Overall very happy and optimistic with her progress Patient reluctant to go to NH at DC but there is no other option in the midst of COVID-19 crisis Cognitively she is much improved Checked med and labs Conferred with RN Reviewed therapy notes Review of Systems Neurological: Weakness Objective Exam Vital Signs Vital Signs Date Time Temp Pulse Resp B/P (MAP) Pulse Ox O2 Delivery O2 Flow Rate FiO2 10/22/19 21:00 Nasal Cannula 1.00 10/22/19 18:17 94 10/22/19 18:00 36.2 87 16 122/80 (94) 10/18/19 10:55 28 Capillary Refill : Less Than 3 Seconds General Appearance: No Apparent Distress, WD/WN, Chronically ill, Obese HEENT: PERRL/EOMI, Normal ENT Inspection, Pharynx Normal Neck: Full Range of Motion, Normal Inspection, Non Tender, Supple, Carotid Bruit Respiratory: Chest Non Tender, Lungs Clear, Normal Breath Sounds, No Accessory Muscle Use, No Respiratory Distress, Decreased Breath Sounds Cardiovascular: Regular Rate, Rhythm, No Edema, No Gallop, No JVD, No Murmur, Normal Peripheral Pulses Gastrointestinal: Normal Bowel Sounds, No Organomegaly, No Pulsatile Mass, Non Tender, Soft Back: Normal Inspection, No CVA Tenderness, No Vertebral Tenderness Extremity: Normal Capillary Refill, Normal Inspection, Normal Range of Motion, Non Tender, No Calf Tenderness, No Pedal Edema Neurologic/Psychiatric: Alert, Oriented x3, No Motor/Sensory Deficits (except left arm and left leg 2-3/5), Normal Mood/Affect, strategic communications manager II-XII Norm as Tested Skin: Normal Color, Warm/Dry Lymphatic: No Adenopathy Results/Procedures Lab Laboratory Tests 10/22/19 05:15 Patient resulted labs reviewed. FIM Transfers Therapy Code Descriptions/Definitions Functional [place] Measure: 0=Not Assessed/NA 4=Minimal Assistance 1=Total Assistance 5=Supervision or Setup 2=Maximal Assistance 6=Modified [place] 3=Moderate Assistance 7=Complete IndependenceSCALE: Activities may be completed with or without assistive devices. 0-Lhhpqmvbfx-qpguxrb completes the activity by him/herself with no assistance from a helper. 5-Set-up or Clean-up Assistance-helper sets up or cleans up; patient completes activity. [place] assists only prior to or following the activity. 4-Supervision or Touching Assistance-helper provides verbal cues and/or touching/steadying and/or contact guard assistance as patient completes activity. Assistance may be provided throughout the activity or intermittently. 3-Partial/Moderate Assistance-helper does LESS THAN HALF the effort. [place] lifts, holds or supports trunk or limbs, but provides less than half the effort. 2-Substantial/Maximal Assistance-helper does MORE THAN HALF the effort. [place] lifts or holds trunk or limbs and provides more than half the effort. 9-Mkmvsbmkp-pstkxl does ALL the effort. Patient does none of the effort to complete the activity. Or, the assistance of 2 or more helpers is required for the patient to complete the activity. If activity was not attempted, code reason: 7-Patient Refused. 9-Not Applicable-not attempted and the patient did not perform the activity before the current illness, exacerbation or injury. 10-Not Attempted due to Environmental Limitations-(lack of equipment, weather restraints, etc.). 88-Not Attempted due to Medical Conditions or Safety Concerns. Roll Left to Right (QC): 5 Sit to Lying (QC): 5 Sit to Stand (QC): 5 Chair/Vzn-ri-Msdgp Xfer(QC): 4 Car Transfer (QC): 88 Gait Training Does the Patient Walk?: Yes Distance: 20'x3 Walk 10 feet (QC): 4 Walk 50 ft with 2 Turns(QC): 88 Walk 150 ft (QC): 88 Walking 10ft/uneven surface-QC: 88 Gait Persons Needed: 1 Gait Assistive Device: FWW Wheelchair Training Does the Pt Use a Wheelchair?: Yes Wheel 50 ft with 2 turns (QC): 4 Wheel 150 ft (QC): 09 Type of Wheelchair: Manual Stair Training 1 Step (curb) (QC): 88 4 Steps (QC): 88 12 Steps (QC): 88 Balance Picking up an Object (QC): 88 ADL-Treatment Eating (QC): 6 Oral Hygiene (QC): 6 (Pt completes IND in front of sink ) Bathing Location: L Arm, R Arm, L Upper Leg, R Upper Leg, L Lower Leg (including foot), R Lower Leg (including foot), Chest, Abdomen, Buttocks, Perineal Area Shower/Bathe Self (QC): 4 (CGA in stance. SUP throughout on shower chair.) Upper Body Dressing (QC): 6 Lower Body Dressing (QC): 4 (CGA in stance and min cues for dressing tasks. 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 Pt completes EOB. ) Toileting Hygiene (QC): 4 (CGA in stance.) Toilet Transfer (QC): 4 (CGA from walker to commode (use of grab bars). ) Assessment/Plan Assessment and Plan Assess & Plan/Chief Complaint Assessment: CVA w/left sided weakness now dramatically improved Current smoker COPD Cognitive deficit improved HTN DM Periodic N/V chronic TIA 05/05 Constipation resolved 10/14/19 Hyponatremia 131 Plan: DC fluid restriction IRF protocol N/V management Hold Metformin due to N/V seems to be helping BM regimen to maintain DC fluid restriction Smoking cessation discussed (1) CVA (cerebral vascular accident) (2) Left-sided weakness (3) Tobacco abuse Status: Chronic (4) Stroke Status: Acute (5) DVT prophylaxis Status: Acute (6) COPD (chronic obstructive pulmonary disease) (7) Diabetes (8) Hyperlipemia (9) Hypertension (10) Leukocytosis Status: Acute (11) Hyponatremia Status: Acute (12) Smoker SUNNY ANDERSON DO Oct 22, 2019 10:39
--- NOTE | 2019-10-22 11:04 | Occupational Ther Daily Note ---
OT Current Status-Daily Note Subjective [id number]: Pt seen in bed. Denies pain. states that she "went to the floor yesterday," as her knees gave out on her. Pt educated on utilizing walker with every transfer for increased safety, pt agrees. Pt agrees to shower on this date. [id number]: Pt seen in bed. Pt agreeable to OT session, denies pain. Mental Status/Objective Patient Orientation: Person, Place, Situation ADL-Treatment Therapy Code Descriptions/Definitions Functional [place] Measure: 0=Not Assessed/NA 4=Minimal Assistance 1=Total Assistance 5=Supervision or Setup 2=Maximal Assistance 6=Modified [place] 3=Moderate Assistance 7=Complete IndependenceSCALE: Activities may be completed with or without assistive devices. 8-Vazxlletaa-sbjtatq completes the activity by him/herself with no assistance from a helper. 5-Set-up or Clean-up Assistance-helper sets up or cleans up; patient completes activity. [place] assists only prior to or following the activity. 4-Supervision or Touching Assistance-helper provides verbal cues and/or touching/steadying and/or contact guard assistance as patient completes activity. Assistance may be provided throughout the activity or intermittently. 3-Partial/Moderate Assistance-helper does LESS THAN HALF the effort. [place] lifts, holds or supports trunk or limbs, but provides less than half the effort. 2-Substantial/Maximal Assistance-helper does MORE THAN HALF the effort. [place] lifts or holds trunk or limbs and provides more than half the effort. 0-Ssavzghip-hdyhdg does ALL the effort. Patient does none of the effort to complete the activity. Or, the assistance of 2 or more helpers is required for the patient to complete the activity. If activity was not attempted, code reason: 7-Patient Refused. 9-Not Applicable-not attempted and the patient did not perform the activity before the current illness, exacerbation or injury. 10-Not Attempted due to Environmental Limitations-(lack of equipment, weather restraints, etc.). 88-Not Attempted due to Medical Conditions or Safety Concerns. Eating (QC): 6 Bathing Location: L Arm, R Arm, L Upper Leg, R Upper Leg, L Lower Leg (including foot), R Lower Leg (including foot), Chest, Abdomen, Buttocks, Perineal Area Shower/Bathe Self (QC): 4 (s/u and SBA in stance.) Upper Body Dressing (QC): 6 Lower Body Dressing (QC): 4 (CGA in stance. Pt completes LB dressing without AE.) On/Off Footwear: 6 (iwthout AE.) Toileting Hygiene (QC): 4 (SBA, use of grab bars.) Toilet Transfer (QC): 4 (CGA, use of bars) Other Treatment Pt bed mob IND. Pt transfers to ks with CGA and walker. Pt sits with control, use of gb. Pt completes ADLs as above. During LB dressing pt states she would like to get to gbs to hold self up and complete donning over hips. Pt begins standing while w/c unlocked and stands at towel rack rather than gbs, pt redirected and with cues for safety sits again. Pt turns w/c and with cues for locking breaks, locks B breaks (increased time for L break). Pt completes stance/ pulls up with CGA. Pt then sits in front of mirror to complete hair grooming (min A) and oral care (IND). Pt gathers dirty clothes and is pushed to washer/ dryer. pt stands at washer with mod A (as pt requires assist to right self in stance), completes bending to gather items on bottom of washer, sits in w/c and utilizes wine master with skilled cues to complete dryer transition. Pt able to gather items from dryer with wine master, returns to room with min A for w/c mob. Pt sits in recliner chair with use of walker and CGA. Pt sits with all needs met, call light on lap. [id number]: Pt completes bed mob with increased time and SBA. Pt sits EOB and completes arm arc exercises (shoulder scaption/ forward flexion), crosses midline, reaches and completes bimanual manipulation task with increased time, takes 3 breaks during 15 min session. Use of tactile mm stimulation to increase mm activity. Pt completes arc activity around her back 2x (15 reps) and in front of her (horizontal ab/ adduction). Pt educated on use of proximal stability to increase fine motor control. Pt completes mm control activity, requiring pt to minimize # of times the transferred ring touches the pole, pt completes with success 1X, then becomes progressively fatigued with less control. Pt left EOB with all needs met, education of PT's session at that time, call light in reach. Education OT Patient Education: Correct positioning, Modified ADL techniques, Progress toward Goal/Update tx plan, Purpose of tx/functional activities, Safety issues, Transfer techniques, Use of adapted equipment Teaching Recipient: Patient Teaching Methods: Demonstration, Discussion Response to Teaching: Verbalize Understanding, Return Demonstration, Reinforcement Needed OT Short Term Goals Short Term Goals Time Frame: Oct 16, 2019 Toileting hygiene: 2 (met) Shower/bathe self: 3 (met) Upper body dressin (met) Lower body dressin (met) OT Snf Goals Nut Grader Goals Time Frame: Oct 30, 2019 Eating (QC): 6 (met) Oral Hygiene (QC): 6 (met) Toileting Hygiene (QC): 5 Shower/Bathe Self (QC): 5 Upper Body Dressing (QC): 6 (met) Lower Body Dressing (QC): 5 On/Off Footwear (QC): 5 (met) Additional Goals: 1-Demonstrate ADL Tasks, 2-Verbalize Understanding, 3- ImproveStrength/Marjorie 1=Demonstrate adherence to instructed precautions during ADL tasks. 2=Patient will verbalize/demonstrate understanding of assistive devices/modifications for ADL. 3=Patient will improve strength/tolerance for activity to enable patient to perform ADL's. OT Education/Plan Problem List/Assessment Assessment: Decreased Activ Tolerance, Decreased Safety Aware, Decreased UE Strength, Dependent Transfers, Impaired Funct Balance, Impaired I ADL's, Impaired Self-Care Skills Discharge Recommendations Plan/Recommendations: Continue POC Therapy Discharge Recommendati: 24 Hour Supervision, Assisted Living, Post Acute OT Treatment Plan/Plan of Care Treatment,Training & Education: Yes Patient would benefit from OT for education, treatment and training to promote independence in ADL's, mobility, safety and/or upper extremity function for ADL's. Plan of Care: ADL Retraining, Functional Mobility, Group Exercise/Act as Ind, UE Funct Exercise/Act, UE Neuromus Re-Ed/Coord Treatment Duration: Oct 30, 2019 Frequency: At least 5 of 7 days/Wk (IRF) Estimated Hrs Per Day: 1.5 hours per day Rehab Potential: Fair Time/GCodes Start Time: 08:00 (1245) Stop Time: 09:00 (1300) Total Time Billed (hr/min): 75 Billed Treatment Time [id number]: 1, ADL 4 (60) [id number]: 1, NM (15) Total: 75 BARRY BYERS OTR Oct 22, 2019 11:03
--- NOTE | 2019-10-22 12:01 | Speech Therapy Daily Note ---
Speech Daily Progress Note Subjective Date Seen by Provider: Oct 22, 2019 Time Seen by Provider: 00:30 Patient was resting in her bed following her PT. Patient stated she felt like her left side was weaker today. Objective Patient completed a series of safety awareness tasks related to her daily needs with 85% given decreased cuing this date. Assessment Assessment Current Status: Good Progress Treatment Plan Continue Plan of Care Speech Short Term Goals Short Term Goals Short Term Goals 1) Patient will complete memory tasks related to daily needs at 90% or greater with minimal cues. 2) Patient will complete safety awareness tasks related to daily needs at 90% or greater with minimal cues. 3) Patient will complete problem solving tasks related to daily needs at 90% or greater with minimal cues. Speech Director Of Archives Goals Group Home Goals Patient will improve cognitive-communication necessary for safety and daily living tasks with minimal assist. Speech-Plan Patient/Family Goals Patient/Family Goals: Patient states she will be going to a SNF temporarily upon discharge. Treatment Plan Speech Therapy Treatment Plan: Continue Plan of Care Treatment Duration: Oct 10, 2019 Frequency: 5 times per week Estimated Hrs Per Day: .5 hour per day Rehab Potential: Fair Barriers to Learning: Patient's recent CVA Pt/Family Agrees to Plan: Yes Safety Risks/Education Teaching Recipient: Patient Teaching Methods: Demonstration, Discussion Response to Teaching: Verbalize Understanding, Return Demonstration Education Topics Provided: Continued safety including not over doing it with fluid intake. Time Speech Therapy Time In: 11:00 Speech Therapy Time Out: 11:30 Total Billed Time: 30 Billed Treatment Time [address] Oct 22, 2019 12:01
--- NOTE | 2019-10-22 13:29 | Physical Therapy Daily Note ---
PT Daily Note-Current Subjective Pt. agrees to rx and states she wants to sit up after Rx in recliner. Pain Location: No Pain Reported Mental Status Patient Orientation: Normal For Age Transfers SCALE: Activities may be completed with or without assistive devices. 5-Sbclaqjmid-bgibymq completes the activity by him/herself with no assistance from a helper. 5-Set-up or Clean-up Assistance-helper sets up or cleans up; patient completes activity. [place] assists only prior to or following the activity. 4-Supervision or Touching Assistance-helper provides verbal cues and/or touching/steadying and/or contact guard assistance as patient completes activity. Assistance may be provided throughout the activity or intermittently. 3-Partial/Moderate Assistance-helper does LESS THAN HALF the effort. [place] lifts, holds or supports trunk or limbs, but provides less than half the effort. 2-Substantial/Maximal Assistance-helper does MORE THAN HALF the effort. [place] lifts or holds trunk or limbs and provides more than half the effort. 4-Clxgidtrn-ddydau does ALL the effort. Patient does none of the effort to complete the activity. Or, the assistance of 2 or more helpers is required for the patient to complete the activity. If activity was not attempted, code reason: 7-Patient Refused. 9-Not Applicable-not attempted and the patient did not perform the activity befo re the current illness, exacerbation or injury. 10-Not Attempted due to Environmental Limitations-(lack of equipment, weather re straints, etc.). 88-Not Attempted due to Medical Conditions or Safety Concerns. sit to stands x 8 trials all CGA to SBA. SPTs with instruction for safe hand use etc. and to utilize FWW until she has sat down etc as pt. tends to push FWW to side and plop in chair unsure exactly where she is in relationship to chair sometimes Weight Bearing Right Lower Extremity: Right Full Weight Bearing Left Lower Extremity: Left Full Weight Bearing Gait Training Does the Patient Walk?: Yes Walk 10 feet (QC): 4 Gait Assistive Device: FWW gait 25 ft x CGA and instruction for turning and safety Exercises Seated Therapy Exercises: Ankle pumps, Sit to stand, Long arc quads, Hip flexion, Hip abd/add Seated Reps: 12 Treatments up in recliner after Rx , call cates at hand Assessment Current Status: Good Progress PT Retail Selling Floor Leader Goals Residential Goals PT Retail Selling Floor Leader Goals Time Frame: Oct 30, 2019 Roll Left & Right (QC): 6 Sit to Lying (QC): 6 Lying-Sitting on Side/Bed(QC): 6 Sit to Stand (QC): 6 Chair/Gle-yy-Oftrr Xfer(QC): 6 Toilet Transfer (QC): 6 Car Transfer (QC): 6 Does the Patient Walk: Yes Walk 10 feet (QC): 6 Walk 50ft with 2 Turns (QC): 6 Walk 150 ft (QC): 6 Walking 10ft on Uneven Surface: 6 1 Step (curb) (QC): 6 4 Steps (QC): 6 12 Steps (QC): 6 Picking up an Object (QC): 6 Does the Pt use WC or Scooter?: No Wheel 50 feet with 2 turns (QC: 09 Wheel 150 feet: 09 PT Plan Treatment/Plan Treatment Plan: Continue Plan of Care Treatment Plan: Bed Mobility, Concurrent Therapy, Education, Functional Activity Marjorie, Functional Strength, Group Therapy, Gait, Safety, Therapeutic Exercise, Transfers Treatment Duration: Oct 30, 2019 Frequency: 6 times per week Estimated Hrs Per Day: 1.5 hours per day Patient and/or Family Agrees t: Yes Safety Risks/Education Patient Education: Gait Training, Transfer Techniques, Correct Positioning, Disease Process, Safety Issues Teaching Recipient: Patient Teaching Methods: Demonstration, Discussion Response to Teaching: Verbalize Understanding, Return Demonstration, Reinforcement Needed Time/GCodes Time In: 1300 Time Out: 1330 Total Billed Treatment Time: 30 Total Billed Treatment 1,GT30m ELISABETH PARRA OVEN OPERATOR Oct 22, 2019 13:29
[2019-10-22 16:00] VITALS: BP 140/75
[2019-10-22 18:00] VITALS: BP 122/80
[2019-10-22] MEDS: ASPIRIN E.C. 81 MG (ECOTRIN) TAB PO SCH (20:55)
[2019-10-22] MEDS: MULTIVIT W/MINERALS TAB (THERAGRAN M) PO SCH (20:55)
[2019-10-22] MEDS: MELATONIN 3 MG TABLET PO PRN (20:55)
[2019-10-23] MEDS: LEVOTHYROXINE 100 MCG (LEVOTHROID) TAB PO SCH (05:34)
[2019-10-23] MEDS: LEVOTHYROXINE 75 MCG (LEVOTHROID) TABLET PO SCH (05:34)
[2019-10-23] MEDS: inSUlin ASPART (NovoLOG) 1 UNIT/0.01 ML (CHARGE PER UNIT) SC SCH ×4 (05:35→21:01)
[2019-10-23 06:00] VITALS: BP 137/82
[2019-10-23] MEDS: RT-ALBUTEROL/IPRATROPIUM 3 ML (DUONEB) VIAL INH SCH ×4 (07:14→18:26)
[2019-10-23] MEDS: PIOGLITAZONE 30MG (ACTOS) TAB PO SCH (09:48)
[2019-10-23] MEDS: CLOPIDOGREL 75 MG (PLAVIX) TABLET PO SCH (09:48)
[2019-10-23] MEDS: DOCUSATE SODIUM 100 MG (COLACE) CAP PO SCH ×2 (09:48→21:12)
[2019-10-23] MEDS: VITAMIN D3 25 MCG (1,000 UNITS) TABLET PO SCH ×3 (09:48→21:00)
[2019-10-23] MEDS: lisINopril 40 MG (PRINIVIL) TABLET PO SCH (09:48)
[2019-10-23] MEDS: PANTOPRAZOLE 40 MG (PROTONIX) TAB PO SCH (09:48)
[2019-10-23] MEDS: OMEGA 3 (FISH OIL) 1000 MG CAP PO SCH (09:48)
[2019-10-23] MEDS: ENOXAPARIN 40 MG/0.4 ML (LOVENOX) SYR SC SCH ×2 (09:49→21:01)
--- NOTE | 2019-10-23 10:00 | Physical Therapy Daily Note ---
PT Daily Note-Current Subjective Pt. states she is tired after completing OT but agrees to PT. Reports she is tired of people telling her to slow down. Mental Status Patient Orientation: Person Transfers SCALE: Activities may be completed with or without assistive devices. 1-Agmmfpymlz-urcbuoh completes the activity by him/herself with no assistance from a helper. 5-Set-up or Clean-up Assistance-helper sets up or cleans up; patient completes activity. [place] assists only prior to or following the activity. 4-Supervision or Touching Assistance-helper provides verbal cues and/or touching/steadying and/or contact guard assistance as patient completes acti vity. Assistance may be provided throughout the activity or intermittently. 3-Partial/Moderate Assistance-helper does LESS THAN HALF the effort. [place] lifts, holds or supports trunk or limbs, but provides less than half the effort. 2-Substantial/Maximal Assistance-helper does MORE THAN HALF the effort. [place] lifts or holds trunk or limbs and provides more than half the effort. 4-Blwsxlgaa-uwvvty does ALL the effort. Patient does none of the effort to complete the activity. Or, the assistance of 2 or more helpers is required for the patient to complete the activity. If activity was not attempted, code reason: 7-Patient Refused. 9-Not Applicable-not attempted and the patient did not perform the activity before the current illness, exacerbation or injury. 10-Not Attempted due to Environmental Limitations-(lack of equipment, weather restraints, etc.). 88-Not Attempted due to Medical Conditions or Safety Concerns. Sit to Stand (QC): 4 Weight Bearing Right Lower Extremity: Right Full Weight Bearing Left Lower Extremity: Left Full Weight Bearing Gait Training Does the Patient Walk?: Yes Distance: x 50 ft, 3 x 30 ft Walk 10 feet (QC): 4 Gait Persons Needed: 1 Gait Assistive Device: FWW w/c follow needed due to fatigue. pt. needs frequent cuing for step sequence and decrease L foot drag. Exercises Seated Therapy Exercises: Ankle pumps, Long arc quads, Hip flexion Seated Reps: 20 Standing: Sit to Stand Standing Reps: 5 NuStep Minutes: 15 NuStep Workload: 4 Treatments gait training, LE exercises Assessment Current Status: Good Progress Pt. was much more aware of gait today in slowing speed but did express frustrati on saying "I just want to walk the way I want to." She did continue to need cuing with L LE to reduce foot drag. Pt. did well with LE exercises and significant improvement in L LE positioning while on Nustep. Pt. returned to bedside chair post session with call light and all needs met, chair alarm set. PT Design Eng Goals Design Eng Goals PT Mcc Goals Time Frame: Oct 30, 2019 Roll Left & Right (QC): 6 Sit to Lying (QC): 6 Lying-Sitting on Side/Bed(QC): 6 Sit to Stand (QC): 6 Chair/Xjz-ux-Opays Xfer(QC): 6 Toilet Transfer (QC): 6 Car Transfer (QC): 6 Does the Patient Walk: Yes Walk 10 feet (QC): 6 Walk 50ft with 2 Turns (QC): 6 Walk 150 ft (QC): 6 Walking 10ft on Uneven Surface: 6 1 Step (curb) (QC): 6 4 Steps (QC): 6 12 Steps (QC): 6 Picking up an Object (QC): 6 Does the Pt use WC or Scooter?: No Wheel 50 feet with 2 turns (QC: 09 Wheel 150 feet: 09 PT Plan Treatment/Plan Treatment Plan: Continue Plan of Care Treatment Plan: Bed Mobility, Concurrent Therapy, Education, Functional Ac tivity Marjorie, Functional Strength, Group Therapy, Gait, Safety, Therapeutic Exercise, Transfers Treatment Duration: Oct 30, 2019 Frequency: 6 times per week Estimated Hrs Per Day: 1.5 hours per day Patient and/or Family Agrees t: Yes Time/GCodes Time In: 900 Time Out: 1000 Total Billed Treatment Time: 60 Total Billed Treatment 1, GT 25', Ex 35' BILLIE LEE PT Oct 23, 2019 10:00
--- NOTE | 2019-10-23 10:21 | Occupational Ther Daily Note ---
OT Current Status-Daily Note Subjective [id number]: Pt seen in bed. Pt agrees to OT tx session. Pt denies pain on this date. [id number] (30): Pt seen in recliner chair, agreeable to OT tx session, denying pain. Mental Status/Objective Patient Orientation: Person, Place, Time, Situation ADL-Treatment Therapy Code Descriptions/Definitions Functional [place] Measure: 0=Not Assessed/NA 4=Minimal Assistance 1=Total Assistance 5=Supervision or Setup 2=Maximal Assistance 6=Modified [place] 3=Moderate Assistance 7=Complete IndependenceSCALE: Activities may be completed with or without assistive devices. 4-Vplldpodts-rwjdzex completes the activity by him/herself with no assistance from a helper. 5-Set-up or Clean-up Assistance-helper sets up or cleans up; patient completes activity. [place] assists only prior to or following the activity. 4-Supervision or Touching Assistance-helper provides verbal cues and/or touching/steadying and/or contact guard assistance as patient completes activity. Assistance may be provided throughout the activity or intermittently. 3-Partial/Moderate Assistance-helper does LESS THAN HALF the effort. [place] lifts, holds or supports trunk or limbs, but provides less than half the effort. 2-Substantial/Maximal Assistance-helper does MORE THAN HALF the effort. [place] lifts or holds trunk or limbs and provides more than half the effort. 3-Apajsushf-vzbenp does ALL the effort. Patient does none of the effort to complete the activity. Or, the assistance of 2 or more helpers is required for the patient to complete the activity. If activity was not attempted, code reason: 7-Patient Refused. 9-Not Applicable-not attempted and the patient did not perform the activity before the current illness, exacerbation or injury. 10-Not Attempted due to Environmental Limitations-(lack of equipment, weather restraints, etc.). 88-Not Attempted due to Medical Conditions or Safety Concerns. Eating (QC): 6 (IND) Oral Hygiene (QC): 6 (IND at sink in w/c.) Upper Body Dressing (QC): 6 (IND) Lower Body Dressing (QC): 4 (CGA in stance. Pt SBA while bending for threading. Pt utilizes AE at times, requires cues for correct use. ) On/Off Footwear: 3 (min A for use of sock aide. Pt able to compelte with IND at end.) Toileting Hygiene (QC): 4 (SBA. Pt toilets on standard toilet and able to wipe on toilet.) Toilet Transfer (QC): 4 (CGA from bed to standard toilet.) Other Treatment [id number]: Pt completes bed mob with IND. Pt [facility]- pt able to unpack with BUE, doff new shirt stickers with L hand, utiliz es spray/ disinfectant bottle with L/ R hands with success, able to drape over chair placed to L while leaning toward L with good dynamic sitting balance. Pt picks out items to dress. Completes dressing tasks in bathroom on toilet as above. Pt sits in w/c in front of sink to complete oral/ grooming/ hair hygiene. Pt unable to wrap hair band around fingers/ manipulation with success without sight. Pt requires cues for shoulder positioning for energy conservation during hair brushing, completes with increased IND (mod I). Pt returns to recliner chair with SBA. All needs met, call light in reach. [id number]: Pt sit to stand with SBA, transfers with 2WW to EOB. Pt sits EOB as she reaches for clothing items placed on L side of pt. Pt demonstrates fair safety awareness as she utilizes 911 emergency services dispatcher to gather items that dropped on floor. Pt completes bimanual folding task with good accuracy. Pt transfers from bed to w/c as OT is out of room. Pt states she "made an oopsie," and moved without assist. Pt educated on thinking transfers through step by step for increased safety, pt agrees. Pt desires tea, transfers to w/c with SBA with 2WW. Pt propels w/c to coffee station with cues for foot/ hand positioning; pt states her arthritis is decreasing her pigment mixer abilities on w/c wheels. Pt stands with 2WW at counter top level to complete tea prep- able to reach overhead with one hand as she stabilizes self with other UE on countertop, opens tea packages, and completes all steps with accuracy and safety. Pt returns to w/c with cues to look/ feel behind her before sits, pt begins to sit toward edge of w/c. Pt's w/c pushed to correct position before sitting. Pt requires additional cues for safety of transfers during w/c and bed mob. Pt states she knows. Pt sits in recliner with all needs met, call light in reach, chair alarm on. Education OT Patient Education: Correct positioning, Modified ADL techniques, Purpose of tx/functional activities, Transfer techniques, Use of adapted equipment Teaching Recipient: Patient Teaching Methods: Demonstration, Discussion Response to Teaching: Verbalize Understanding, Return Demonstration, Reinforcement Needed OT Short Term Goals Short Term Goals Time Frame: Oct 16, 2019 Toileting hygiene: 2 (met) Shower/bathe self: 3 (met) Upper body dressin (met) Lower body dressin (met) OT Group Home Goals Gas Roller Operator Goals Time Frame: Oct 30, 2019 Eating (QC): 6 (met) Oral Hygiene (QC): 6 (met) Toileting Hygiene (QC): 5 Shower/Bathe Self (QC): 5 Upper Body Dressing (QC): 6 (met) Lower Body Dressing (QC): 5 On/Off Footwear (QC): 5 (met) Additional Goals: 1-Demonstrate ADL Tasks, 2-Verbalize Understanding, 3- ImproveStrength/Marjorie 1=Demonstrate adherence to instructed precautions during ADL tasks. 2=Patient will verbalize/demonstrate understanding of assistive devices/modifications for ADL. 3=Patient will improve strength/tolerance for activity to enable patient to perform ADL's. OT Education/Plan Problem List/Assessment Assessment: Decreased Activ Tolerance, Decreased UE Strength, Dependent Transfers, Impaired Coordination, Impaired Funct Balance, Impaired I ADL's, Impaired Self-Care Skills Discharge Recommendations Plan/Recommendations: Continue POC Therapy Discharge Recommendati: 24 Hour Supervision, Assisted Living Treatment Plan/Plan of Care Treatment,Training & Education: Yes Patient would benefit from OT for education, treatment and training to promote independence in ADL's, mobility, safety and/or upper extremity function for ADL's. Plan of Care: ADL Retraining, Functional Mobility, Group Exercise/Act as Ind, UE Funct Exercise/Act, UE Neuromus Re-Ed/Coord Treatment Duration: Oct 30, 2019 Frequency: At least 5 of 7 days/Wk (IRF) Estimated Hrs Per Day: 1.5 hours per day Rehab Potential: Fair Time/GCodes Start Time: 08:00 (1320) Stop Time: 09:00 (1350) Total Time Billed (hr/min): 90 Billed Treatment Time [id number]: 1, ADL 3, FA (60) [id number]: 1, FA, ADL (30) Total: 60 BARRY BYERS OTR Oct 23, 2019 10:21
--- NOTE | 2019-10-23 11:08 | Speech Therapy Daily Note ---
Speech Daily Progress Note Subjective Date Seen by Provider: Oct 23, 2019 Time Seen by Provider: 00:30 Patient was resting in her recliner following her PT session. Patient was very alert and participated well today. Objective Patient completed a series of problem solving tasks related to her daily needs with 90% given minimal cues/redirections. Assessment Assessment Current Status: Good Progress Treatment Plan Continue Plan of Care Speech Short Term Goals Short Term Goals Short Term Goals 1) Patient will complete memory tasks related to daily needs at 90% or greater with minimal cues. 2) Patient will complete safety awareness tasks related to daily needs at 90% or greater with minimal cues. 3) Patient will complete problem solving tasks related to daily needs at 90% or greater with minimal cues. Speech Brush Finisher Goals Usp Goals Patient will improve cognitive-communication necessary for safety and daily living tasks with minimal assist. Speech-Plan Patient/Family Goals Patient/Family Goals: The patient will be discharging to a SNF in the coming days where she will continue rehab. Treatment Plan Speech Therapy Treatment Plan: Continue Plan of Care Treatment Duration: Oct 10, 2019 Frequency: 5 times per week Estimated Hrs Per Day: .5 hour per day Rehab Potential: Fair Barriers to Learning: Patient's recent CVA Pt/Family Agrees to Plan: Yes Safety Risks/Education Teaching Recipient: Patient Teaching Methods: Demonstration, Discussion Response to Teaching: Verbalize Understanding, Return Demonstration Education Topics Provided: Continued safety and communication of wants/needs Time Speech Therapy Time In: 10:00 Speech Therapy Time Out: 10:30 Total Billed Time: 30 Billed Treatment Time 1, JHOANA Harris Oct 23, 2019 11:08
--- NOTE | 2019-10-23 11:29 | PM&R Progress Note ---
Subjective HPI/CC On Admission Date Seen by Provider: Oct 23, 2019 Time Seen by Provider: 10:30 Subjective/Events-last exam BM normal with prune juice on regular basis No more fluid restriction now and she is delighted Weakness of left side is getting better and better BP ok Overall very happy and optimistic with her progress Patient reluctant to go to NH at DC but there is no other option in the midst of COVID-19 crisis Cognitively she is much improved Checked med and labs Conferred with RN Reviewed therapy notes Review of Systems General: Fatigue Neurological: Weakness Objective Exam Vital Signs Vital Signs Date Time Temp Pulse Resp B/P (MAP) Pulse Ox O2 Delivery O2 Flow Rate FiO2 10/23/19 18:26 92 Room Air 10/23/19 16:00 36.8 99 16 128/78 (95) 10/23/19 07:14 1.00 10/18/19 10:55 28 Capillary Refill : Less Than 3 Seconds General Appearance: No Apparent Distress, WD/WN, Chronically ill, Obese HEENT: PERRL/EOMI, Normal ENT Inspection, Pharynx Normal Neck: Full Range of Motion, Normal Inspection, Non Tender, Supple, Carotid Bruit Respiratory: Chest Non Tender, Lungs Clear, Normal Breath Sounds, No Accessory Muscle Use, No Respiratory Distress, Decreased Breath Sounds Cardiovascular: Regular Rate, Rhythm, No Edema, No Gallop, No JVD, No Murmur, Normal Peripheral Pulses Gastrointestinal: Normal Bowel Sounds, No Organomegaly, No Pulsatile Mass, Non Tender, Soft Back: Normal Inspection, No CVA Tenderness, No Vertebral Tenderness Extremity: Normal Capillary Refill, Normal Inspection, Normal Range of Motion, Non Tender, No Calf Tenderness, No Pedal Edema Neurologic/Psychiatric: Alert, Oriented x3, No Motor/Sensory Deficits (except left arm and left leg 2-3/5), Normal Mood/Affect, program director II-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 FIM Transfers Therapy Code Descriptions/Definitions Functional [place] Measure: 0=Not Assessed/NA 4=Minimal Assistance 1=Total Assistance 5=Supervision or Setup 2=Maximal Assistance 6=Modified [place] 3=Moderate Assistance 7=Complete IndependenceSCALE: Activities may be completed with or without assistive devices. 3-Izsxyjlmlz-dufwemz completes the activity by him/herself with no assistance from a helper. 5-Set-up or Clean-up Assistance-helper sets up or cleans up; patient completes activity. [place] assists only prior to or following the activity. 4-Supervision or Touching Assistance-helper provides verbal cues and/or touching/steadying and/or contact guard assistance as patient completes activity. Assistance may be provided throughout the activity or intermittently. 3-Partial/Moderate Assistance-helper does LESS THAN HALF the effort. [place] lifts, holds or supports trunk or limbs, but provides less than half the effort. 2-Substantial/Maximal Assistance-helper does MORE THAN HALF the effort. [place] lifts or holds trunk or limbs and provides more than half the effort. 6-Khxzrikyg-olaleq does ALL the effort. Patient does none of the effort to complete the activity. Or, the assistance of 2 or more helpers is required for the patient to complete the activity. If activity was not attempted, code reason: 7-Patient Refused. 9-Not Applicable-not attempted and the patient did not perform the activity before the current illness, exacerbation or injury. 10-Not Attempted due to Environmental Limitations-(lack of equipment, weather restraints, etc.). 88-Not Attempted due to Medical Conditions or Safety Concerns. Roll Left to Right (QC): 5 Sit to Lying (QC): 5 Sit to Stand (QC): 4 Chair/Ucy-eh-Otokz Xfer(QC): 4 Car Transfer (QC): 88 Gait Training Does the Patient Walk?: Yes Distance: x 50 ft, 3 x 30 ft Walk 10 feet (QC): 4 Walk 50 ft with 2 Turns(QC): 88 Walk 150 ft (QC): 88 Walking 10ft/uneven surface-QC: 88 Gait Persons Needed: 1 Gait Assistive Device: FWW Wheelchair Training Does the Pt Use a Wheelchair?: Yes Wheel 50 ft with 2 turns (QC): 4 Wheel 150 ft (QC): 09 Type of Wheelchair: Manual Stair Training 1 Step (curb) (QC): 88 4 Steps (QC): 88 12 Steps (QC): 88 Balance Picking up an Object (QC): 88 ADL-Treatment Eating (QC): 6 (IND) Oral Hygiene (QC): 6 (IND at sink in w/c.) Bathing Location: L Arm, R Arm, L Upper Leg, R Upper Leg, L Lower Leg (including foot), R Lower Leg (including foot), Chest, Abdomen, Buttocks, Perineal Area Shower/Bathe Self (QC): 4 (s/u and SBA in stance.) Upper Body Dressing (QC): 6 (IND) Lower Body Dressing (QC): 4 (CGA in stance. Pt SBA while bending for threading. Pt utilizes AE at times, requires cues for correct use. ) On/Off Footwear (QC): 3 (min A for use of sock aide. Pt able to compelte with IND at end.) Toileting Hygiene (QC): 4 (SBA. 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 Current smoker COPD Cognitive deficit improved HTN DM Periodic N/V chronic TIA 05/05 Constipation resolved 10/14/19 Hyponatremia 131 Plan: DC fluid restriction IRF protocol N/V management Hold Metformin due to N/V seems to be helping BM regimen to maintain DC fluid restriction Smoking cessation discussed (1) CVA (cerebral vascular accident) (2) Left-sided weakness (3) Tobacco abuse Status: Chronic (4) Stroke Status: Acute (5) DVT prophylaxis Status: Acute (6) COPD (chronic obstructive pulmonary disease) (7) Diabetes (8) Hyperlipemia (9) Hypertension (10) Leukocytosis Status: Acute (11) Hyponatremia Status: Acute (12) Smoker SUNNY ANDERSON DO Oct 23, 2019 11:29
[2019-10-23] MEDS: polyethylene glycoL POWDER 17 GM (MIRALAX) PACK PO SCH ×2 (11:41→21:12)
[2019-10-23] MEDS: SENNA W/DOCUSATE (SENOKOT S) TABLET PO SCH ×2 (11:42→21:12)
--- NOTE | 2019-10-23 13:56 | Physical Therapy Daily Note ---
PT Daily Note-Current Subjective Pt. in bed and agrees to therapy. Mental Status Patient Orientation: Person, Place Transfers SCALE: Activities may be completed with or without assistive devices. 9-Cevuicsiba-nvdnknm completes the activity by him/herself with no assistance from a helper. 5-Set-up or Clean-up Assistance-helper sets up or cleans up; patient completes activity. [place] assists only prior to or following the activity. 4-Supervision or Touching Assistance-helper provides verbal cues and/or touching/steadying and/or contact guard assistance as patient completes activity. Assistance may be provided throughout the activity or intermittently. 3-Partial/Moderate Assistance-helper does LESS THAN HALF the effort. [place] lifts, holds or supports trunk or limbs, but provides less than half the effort. 2-Substantial/Maximal Assistance-helper does MORE THAN HALF the effort. [place] lifts or holds trunk or limbs and provides more than half the effort. 5-Jkhnvgpzn-fvhwhm does ALL the effort. Patient does none of the effort to complete the activity. Or, the assistance of 2 or more helpers is required for the patient to complete the activity. If activity was not attempted, code reason: 7-Patient Refused. 9-Not Applicable-not attempted and the patient did not perform the activity before the current illness, exacerbation or injury. 10-Not Attempted due to Environmental Limitations-(lack of equipment, weather restraints, etc.). 88-Not Attempted due to Medical Conditions or Safety Concerns. Lying to Sitting/Side of Bed(Q: 5 Sit to Stand (QC): 4 Toilet Transfer (QC): 4 Weight Bearing Right Lower Extremity: Right Full Weight Bearing Left Lower Extremity: Left Full Weight Bearing Gait Training Does the Patient Walk?: Yes Distance: x 20 ft, x 30 ft Walk 10 feet (QC): 4 Gait Persons Needed: 1 Gait Assistive Device: FWW cuing for slowing gait speed and picking up L LE Treatments toileting, gait training Assessment Current Status: Good Progress Pt. is progressing gait ability although continues to have unsafe tendencies during ambulation requiring close CGA and frequent cuing. Pt. would continue to benefit from skilled PT to further progress safe mobility and strength. Pt. in bedside chair post session with call light and all needs met. PT Leather Tooler Goals Leather Tooler Goals PT Fpc Goals Time Frame: Oct 30, 2019 Roll Left & Right (QC): 6 Sit to Lying (QC): 6 Lying-Sitting on Side/Bed(QC): 6 Sit to Stand (QC): 6 Chair/Nno-ky-Xyuup Xfer(QC): 6 Toilet Transfer (QC): 6 Car Transfer (QC): 6 Does the Patient Walk: Yes Walk 10 feet (QC): 6 Walk 50ft with 2 Turns (QC): 6 Walk 150 ft (QC): 6 Walking 10ft on Uneven Surface: 6 1 Step (curb) (QC): 6 4 Steps (QC): 6 12 Steps (QC): 6 Picking up an Object (QC): 6 Does the Pt use WC or Scooter?: No Wheel 50 feet with 2 turns (QC: 09 Wheel 150 feet: 09 PT Plan Treatment/Plan Treatment Plan: Continue Plan of Care Treatment Plan: Bed Mobility, Concurrent Therapy, Education, Functional Activity Marjorie, Functional Strength, Group Therapy, Gait, Safety, Therapeutic Exercise, Transfers Treatment Duration: Oct 30, 2019 Frequency: 6 times per week Estimated Hrs Per Day: 1.5 hours per day Patient and/or Family Agrees t: Yes Time/GCodes Time In: 1253 Time Out: 1308 Total Billed Treatment Time: 15 Total Billed Treatment 1, GT 15' BILLIE LEE PT Oct 23, 2019 13:56
[2019-10-23 16:00] VITALS: BP 128/78
[2019-10-23] MEDS: ASPIRIN E.C. 81 MG (ECOTRIN) TAB PO SCH (21:00)
[2019-10-23] MEDS: MULTIVIT W/MINERALS TAB (THERAGRAN M) PO SCH (21:00)
[2019-10-23] MEDS: MELATONIN 3 MG TABLET PO PRN (21:00)
[2019-10-23] MEDS: IBUPROFEN TABLET 200 MG TAB PO PRN (21:01)
[2019-10-24 06:00] VITALS: BP 146/85
[2019-10-24] MEDS: LEVOTHYROXINE 75 MCG (LEVOTHROID) TABLET PO SCH (06:11)
[2019-10-24] MEDS: LEVOTHYROXINE 100 MCG (LEVOTHROID) TAB PO SCH (06:11)
[2019-10-24] MEDS: inSUlin ASPART (NovoLOG) 1 UNIT/0.01 ML (CHARGE PER UNIT) SC SCH ×4 (06:12→21:18)
[2019-10-24] MEDS: RT-ALBUTEROL/IPRATROPIUM 3 ML (DUONEB) VIAL INH SCH ×2 (07:09→20:49)
[2019-10-24 09:18] VITALS: BP 129/79
[2019-10-24] MEDS: lisINopril 40 MG (PRINIVIL) TABLET PO SCH (09:24)
[2019-10-24] MEDS: VITAMIN D3 25 MCG (1,000 UNITS) TABLET PO SCH ×3 (09:24→21:18)
[2019-10-24] MEDS: CLOPIDOGREL 75 MG (PLAVIX) TABLET PO SCH (09:24)
[2019-10-24] MEDS: PIOGLITAZONE 30MG (ACTOS) TAB PO SCH (09:24)
[2019-10-24] MEDS: PANTOPRAZOLE 40 MG (PROTONIX) TAB PO SCH (09:24)
[2019-10-24] MEDS: ENOXAPARIN 40 MG/0.4 ML (LOVENOX) SYR SC SCH ×2 (09:24→21:18)
[2019-10-24] MEDS: OMEGA 3 (FISH OIL) 1000 MG CAP PO SCH (09:24)
[2019-10-24] MEDS: SENNA W/DOCUSATE (SENOKOT S) TABLET PO SCH ×2 (09:25→19:46)
[2019-10-24] MEDS: DOCUSATE SODIUM 100 MG (COLACE) CAP PO SCH ×2 (09:25→19:45)
[2019-10-24] MEDS: polyethylene glycoL POWDER 17 GM (MIRALAX) PACK PO SCH ×2 (09:25→19:45)
[2019-10-24 10:35] VITALS: BP 129/79
--- NOTE | 2019-10-24 10:44 | Occupational Ther Daily Note ---
OT Current Status-Daily Note Subjective Pt alert, finishing up with PT. OT took over care. Pt agrees to therapy. States that she is fatigued. Mental Status/Objective Patient Orientation: Person, Place, Time, Situation ADL-Treatment Pt agrees to shower. At w/c level, pt able to retrieve clothing from closet then place on bed for dressing after shower. Pt propelled w/c into bathroom and positioned for shower transfer, verbal cues to set brakes. SBA for shower transfer using shower bench, grabbars and w/c. Pt stood with grabbars and hiked pants over hips then used dressing stick to doff lower body clothing over feet. Pt completed shower sitting on bench using AE for lower body bathing. Transferred using grabbars back to w/c to dry self off. Pt dressed beside bed using bed rail to stand and stabilize while hiking pants. Donned upper body clothing by self. Using AE pt donned lower body clothing by self with SBA in s tance to hike pants. Pt propelled w/c to bathroom to complete oral care by self. Assist needed to place hair in ponytail after pt brushed by self. Pt then transferred into bed with supervision and stayed sitting on EOB after session. Nrsg notified of position and call light/phone in reach. All needs met in room. Therapy Code Descriptions/Definitions Functional [place] Measure: 0=Not Assessed/NA 4=Minimal Assistance 1=Total Assistance 5=Supervision or Setup 2=Maximal Assistance 6=Modified [place] 3=Moderate Assistance 7=Complete IndependenceSCALE: Activities may be completed with or without assistive devices. 3-Ikeuefmrnh-nddwupm completes the activity by him/herself with no assistance from a helper. 5-Set-up or Clean-up Assistance-helper sets up or cleans up; patient completes activity. [place] assists only prior to or following the activity. 4-Supervision or Touching Assistance-helper provides verbal cues and/or touching/steadying and/or contact guard assistance as patient completes activity. Assistance may be provided throughout the activity or intermittently. 3-Partial/Moderate Assistance-helper does LESS THAN HALF the effort. [place] lifts, holds or supports trunk or limbs, but provides less than half the effort. 2-Substantial/Maximal Assistance-helper does MORE THAN HALF the effort. [place] lifts or holds trunk or limbs and provides more than half the effort. 6-Agxvprqxr-humzcv does ALL the effort. Patient does none of the effort to complete the activity. Or, the assistance of 2 or more helpers is required for the patient to complete the activity. If activity was not attempted, code reason: 7-Patient Refused. 9-Not Applicable-not attempted and the patient did not perform the activity before the current illness, exacerbation or injury. 10-Not Attempted due to Environmental Limitations-(lack of equipment, weather restraints, etc.). 88-Not Attempted due to Medical Conditions or Safety Concerns. Oral Hygiene (QC): 6 Shower/Bathe Self (QC): 4 Upper Body Dressing (QC): 6 Lower Body Dressing (QC): 4 On/Off Footwear: 4 OT Short Term Goals Short Term Goals Time Frame: Oct 16, 2019 Toileting hygiene: 2 (met) Shower/bathe self: 3 (met) Upper body dressin (met) Lower body dressin (met) OT Central Processing Tech Goals Central Processing Tech Goals Time Frame: Oct 30, 2019 Eating (QC): 6 (met) Oral Hygiene (QC): 6 (met) Toileting Hygiene (QC): 5 Shower/Bathe Self (QC): 5 Upper Body Dressing (QC): 6 (met) Lower Body Dressing (QC): 5 On/Off Footwear (QC): 5 (met) Additional Goals: 1-Demonstrate ADL Tasks, 2-Verbalize Understanding, 3- ImproveStrength/Marjorie 1=Demonstrate adherence to instructed precautions during ADL tasks. 2=Patient will verbalize/demonstrate understanding of assistive devices/modifications for ADL. 3=Patient will improve strength/tolerance for activity to enable patient to perform ADL's. OT Education/Plan Problem List/Assessment Assessment: Decreased Activ Tolerance, Decreased Safety Aware, Decreased UE Strength, Impaired Cognition, Impaired Coordination, Impaired Funct Balance, Impaired Self-Care Skills, Restricted Funct UE ROM Discharge Recommendations Plan/Recommendations: Continue POC Treatment Plan/Plan of Care Patient would benefit from OT for education, treatment and training to promote independence in ADL's, mobility, safety and/or upper extremity function for ADL's. Plan of Care: ADL Retraining, Functional Mobility, Group Exercise/Act as Ind, UE Funct Exercise/Act, UE Neuromus Re-Ed/Coord Treatment Duration: Oct 30, 2019 Frequency: At least 5 of 7 days/Wk (IRF) Estimated Hrs Per Day: 1.5 hours per day Rehab Potential: Fair Time/GCodes Start Time: 09:15 Stop Time: 10:30 Total Time Billed (hr/min): 75 Billed Treatment Time 1 visit-ADL 5 (75 min) RIANNA ESPITIA Oct 24, 2019 10:44
--- NOTE | 2019-10-24 11:52 | Physical Therapy Daily Note ---
PT Daily Note-Current Subjective Pt sitting up in bed upon arrival. Pt agrees to PT. WELFARE VISITOR continues to give VC to redirect to stay on task during Rx. Pain Numeric Pain Scale: 5-Moderate Pain Location: Left Location Body Site: Knee Pain Description: Ache Mental Status Patient Orientation: Person, Place Transfers SCALE: Activities may be completed with or without assistive devices. 2-Iuetpvosoa-bnrggjc completes the activity by him/herself with no assistance from a helper. 5-Set-up or Clean-up Assistance-helper sets up or cleans up; patient completes activity. [place] assists only prior to or following the activity. 4-Supervision or Touching Assistance-helper provides verbal cues and/or touching/steadying and/or contact guard assistance as patient completes activity. Assistance may be provided throughout the activity or intermittently. 3-Partial/Moderate Assistance-helper does LESS THAN HALF the effort. [place] lifts, holds or supports trunk or limbs, but provides less than half the effort. 2-Substantial/Maximal Assistance-helper does MORE THAN HALF the effort. [place] lifts or holds trunk or limbs and provides more than half the effort. 7-Tfsicazmy-dxcint does ALL the effort. Patient does none of the effort to complete the activity. Or, the assistance of 2 or more helpers is required for the patient to complete the activity. If activity was not attempted, code reason: 7-Patient Refused. 9-Not Applicable-not attempted and the patient did not perform the activity before the current illness, exacerbation or injury. 10-Not Attempted due to Environmental Limitations-(lack of equipment, weather restraints, etc.). 88-Not Attempted due to Medical Conditions or Safety Concerns. Roll Left & Right (QC): 5 Sit to Lying (QC): 5 Lying to Sitting/Side of Bed(Q: 5 Sit to Stand (QC): 5 Toilet Transfer (QC): 4 Weight Bearing Right Lower Extremity: Right Full Weight Bearing Left Lower Extremity: Left Full Weight Bearing Gait Training Does the Patient Walk?: Yes Distance: 15' Walk 10 feet (QC): 4 Gait Persons Needed: 1 Gait Assistive Device: FWW Pt reports weakness and knees buckling, needing to sit down. Wheelchair Training Does the Pt Use a Wheelchair?: Yes Wheel 50 ft with 2 turns (QC): 4 Wheel 150 ft (QC): 4 Type of Wheelchair: Manual Exercises Seated Therapy Exercises: Ankle pumps, Long arc quads, Hip flexion, Kicking activity Seated Reps: 15 NuStep Minutes: 12 NuStep Workload: 4 Treatments Pt transfers from EOB to standing. Pt uses restroom before leaving room. Pt ambulates in room using FWW then needs to transfer to [facility]. Pt propels [facility] to [employer]. Pt completes Seated Ex & uses NuStep for 12 1/2m at WL 4. Pt returns to [facility] and propels back to room. OT arrives at end of Rx to start OT Rx. Assessment Current Status: Fair Progress Pt is limited in walking today citing arthritis and weakness/knee buckling. PT Senior Care Goals Baseball Winder Goals PT Baseball Winder Goals Time Frame: Oct 30, 2019 Roll Left & Right (QC): 6 Sit to Lying (QC): 6 Lying-Sitting on Side/Bed(QC): 6 Sit to Stand (QC): 6 Chair/Myk-mi-Zswbe Xfer(QC): 6 Toilet Transfer (QC): 6 Car Transfer (QC): 6 Does the Patient Walk: Yes Walk 10 feet (QC): 6 Walk 50ft with 2 Turns (QC): 6 Walk 150 ft (QC): 6 Walking 10ft on Uneven Surface: 6 1 Step (curb) (QC): 6 4 Steps (QC): 6 12 Steps (QC): 6 Picking up an Object (QC): 6 Does the Pt use WC or Scooter?: No Wheel 50 feet with 2 turns (QC: 09 Wheel 150 feet: 09 PT Plan Problem List Problem List: Activity Tolerance, Functional Strength, Safety, Balance, Gait Treatment/Plan Treatment Plan: Continue Plan of Care Treatment Plan: Bed Mobility, Concurrent Therapy, Education, Functional Activi ty Marjorie, Functional Strength, Group Therapy, Gait, Safety, Therapeutic Exercise, Transfers Treatment Duration: Oct 30, 2019 Frequency: 6 times per week Estimated Hrs Per Day: 1.5 hours per day Patient and/or Family Agrees t: Yes Safety Risks/Education Patient Education: Gait Training, Transfer Techniques, Correct Positioning, W/C Management, Safety Issues Teaching Recipient: Patient Teaching Methods: Discussion Response to Teaching: Reinforcement Needed Time/GCodes Time In: 815 Time Out: 915 Total Billed Treatment Time: 60 Total Billed Treatment 1,FA (15m), EX x2 (30m) & [facility] (15m) DAX COBURN WELFARE VISITOR Oct 24, 2019 11:52
--- NOTE | 2019-10-24 12:36 | PM&R Progress Note ---
Subjective HPI/CC On Admission Date Seen by Provider: Oct 24, 2019 Time Seen by Provider: 11:00 Subjective/Events-last exam BM normal with prune juice No more fluid restriction now and she is delighted Weakness of left side is getting better and better BP ok Overall very happy and optimistic with her progress Patient reluctant to go to NH at [place] but there is no other option in the midst of COVID-19 crisis. Reaching out to PT OT Cognitively she is much improved Checked med and labs Conferred with RN Reviewed therapy notes Review of Systems Neurological: Weakness, Numbness, Incoordination Objective Exam Vital Signs Vital Signs Date Time Temp Pulse Resp B/P (MAP) Pulse Ox O2 Delivery O2 Flow Rate FiO2 10/24/19 17:54 36.4 77 16 126/84 (98) 94 Room Air 10/24/19 10:35 21 10/23/19 07:14 1.00 Capillary Refill : Less Than 3 Seconds General Appearance: No Apparent Distress, WD/WN, Chronically ill, Obese HEENT: PERRL/EOMI, Normal ENT Inspection, Pharynx Normal Neck: Full Range of Motion, Normal Inspection, Non Tender, Supple, Carotid Bruit Respiratory: Chest Non Tender, Lungs Clear, Normal Breath Sounds, No Accessory Muscle Use, No Respiratory Distress, Decreased Breath Sounds Cardiovascular: Regular Rate, Rhythm, No Edema, No Gallop, No JVD, No Murmur, Normal Peripheral Pulses Gastrointestinal: Normal Bowel Sounds, No Organomegaly, No Pulsatile Mass, Non Tender, Soft Back: Normal Inspection, No CVA Tenderness, No Vertebral Tenderness Extremity: Normal Capillary Refill, Normal Inspection, Normal Range of Motion, Non Tender, No Calf Tenderness, No Pedal Edema Neurologic/Psychiatric: Alert, Oriented x3, No Motor/Sensory Deficits (except left arm and left leg 2-3/5), Normal Mood/Affect, naval engineer II-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 FIM Transfers Therapy Code Descriptions/Definitions Functional [place] Measure: 0=Not Assessed/NA 4=Minimal Assistance 1=Total Assistance 5=Supervision or Setup 2=Maximal Assistance 6=Modified [place] 3=Moderate Assistance 7=Complete IndependenceSCALE: Activities may be completed with or without assistive devices. 2-Anhiyyihim-wylvsgm completes the activity by him/herself with no assistance from a helper. 5-Set-up or Clean-up Assistance-helper sets up or cleans up; patient completes activity. [place] assists only prior to or following the activity. 4-Supervision or Touching Assistance-helper provides verbal cues and/or touching/steadying and/or contact guard assistance as patient completes activity. Assistance may be provided throughout the activity or intermittently. 3-Partial/Moderate Assistance-helper does LESS THAN HALF the effort. [place] lifts, holds or supports trunk or limbs, but provides less than half the effort. 2-Substantial/Maximal Assistance-helper does MORE THAN HALF the effort. [place] lifts or holds trunk or limbs and provides more than half the effort. 6-Khiofffyo-nmadbr does ALL the effort. Patient does none of the effort to complete the activity. Or, the assistance of 2 or more helpers is required for the patient to complete the activity. If activity was not attempted, code reason: 7-Patient Refused. 9-Not Applicable-not attempted and the patient did not perform the activity before the current illness, exacerbation or injury. 10-Not Attempted due to Environmental Limitations-(lack of equipment, weather restraints, etc.). 88-Not Attempted due to Medical Conditions or Safety Concerns. Roll Left to Right (QC): 5 Sit to Lying (QC): 5 Sit to Stand (QC): 5 Chair/Ajb-so-Awjtp Xfer(QC): 4 Car Transfer (QC): 88 Gait Training Does the Patient Walk?: Yes Distance: 15' Walk 10 feet (QC): 4 Walk 50 ft with 2 Turns(QC): 88 Walk 150 ft (QC): 88 Walking 10ft/uneven surface-QC: 88 Gait Persons Needed: 1 Gait Assistive Device: FWW Wheelchair Training Does the Pt Use a Wheelchair?: Yes Wheel 50 ft with 2 turns (QC): 4 Wheel 150 ft (QC): 4 Type of Wheelchair: Manual Stair Training 1 Step (curb) (QC): 88 4 Steps (QC): 88 12 Steps (QC): 88 Balance Picking up an Object (QC): 88 ADL-Treatment Eating (QC): 6 (IND) Oral Hygiene (QC): 6 Bathing Location: L Arm, R Arm, L Upper Leg, R Upper Leg, L Lower Leg (including foot), R Lower Leg (including foot), Chest, Abdomen, Buttocks, Perineal Area Shower/Bathe Self (QC): 4 Upper Body Dressing (QC): 6 Lower Body Dressing (QC): 4 On/Off Footwear (QC): 4 Toileting Hygiene (QC): 4 (SBA. 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 Current smoker COPD Cognitive deficit improved HTN DM Periodic N/V chronic TIA 05/05 Constipation resolved 10/14/19 Hyponatremia 131 Plan: DC fluid restriction IRF protocol N/V management Hold Metformin due to N/V seems to be helping BM regimen to maintain DC fluid restriction Smoking cessation discussed DC NH once accepted (1) CVA (cerebral vascular accident) (2) Left-sided weakness (3) Tobacco abuse Status: Chronic (4) Stroke Status: Acute (5) DVT prophylaxis Status: Acute (6) COPD (chronic obstructive pulmonary disease) (7) Diabetes (8) Hyperlipemia (9) Hypertension (10) Leukocytosis Status: Acute (11) Hyponatremia Status: Acute (12) Smoker SUNNY ANDERSON DO Oct 24, 2019 12:35
--- NOTE | 2019-10-24 13:13 | Physical Therapy Daily Note ---
PT Daily Note-Current Subjective Pt laying L sidelying upon arrival. Pt reluctantly agrees to PT. Mental Status Patient Orientation: Person, Place Transfers SCALE: Activities may be completed with or without assistive devices. 7-Whyfxhpfvf-fkgbbmh completes the activity by him/herself with no assistance from a helper. 5-Set-up or Clean-up Assistance-helper sets up or cleans up; patient completes activity. [place] assists only prior to or following the activity. 4-Supervision or Touching Assistance-helper provides verbal cues and/or touching/steadying and/or contact guard assistance as patient completes activity. Assistance may be provided throughout the activity or intermittently. 3-Partial/Moderate Assistance-helper does LESS THAN HALF the effort. [place] lifts, holds or supports trunk or limbs, but provides less than half the effort. 2-Substantial/Maximal Assistance-helper does MORE THAN HALF the effort. [place] lifts or holds trunk or limbs and provides more than half the effort. 7-Gopmncbpg-fpgygi does ALL the effort. Patient does none of the effort to complete the activity. Or, the assistance of 2 or more helpers is required for the patient to complete the activity. If activity was not attempted, code reason: 7-Patient Refused. 9-Not Applicable-not attempted and the patient did not perform the activity before the current illness, exacerbation or injury. 10-Not Attempted due to Environmental Limitations-(lack of equipment, weather restraints, etc.). 88-Not Attempted due to Medical Conditions or Safety Concerns. Weight Bearing Right Lower Extremity: Right Full Weight Bearing Left Lower Extremity: Left Full Weight Bearing Exercises Supine Ex: Ankle pumps, Quad Set, Glut sets, Heel Slides, Straight leg raise, Hip abd/add Supine Reps: 15 Treatments Pt completes Supine Ex in bed for Rx. Pt rests at end of Rx. Pt has all needs met, call light in hand. Assessment Current Status: Good Progress Pt tolerates Rx well. PT Fpc Goals Manager Medicare Goals PT Manager Medicare Goals Time Frame: Oct 30, 2019 Roll Left & Right (QC): 6 Sit to Lying (QC): 6 Lying-Sitting on Side/Bed(QC): 6 Sit to Stand (QC): 6 Chair/Kiv-kb-Btwbb Xfer(QC): 6 Toilet Transfer (QC): 6 Car Transfer (QC): 6 Does the Patient Walk: Yes Walk 10 feet (QC): 6 Walk 50ft with 2 Turns (QC): 6 Walk 150 ft (QC): 6 Walking 10ft on Uneven Surface: 6 1 Step (curb) (QC): 6 4 Steps (QC): 6 12 Steps (QC): 6 Picking up an Object (QC): 6 Does the Pt use WC or Scooter?: No Wheel 50 feet with 2 turns (QC: 09 Wheel 150 feet: 09 PT Plan Problem List Problem List: Activity Tolerance, Functional Strength, Safety Treatment/Plan Treatment Plan: Continue Plan of Care Treatment Plan: Bed Mobility, Concurrent Therapy, Education, Functional Activity Marjorie, Functional Strength, Group Therapy, Gait, Safety, Therapeutic Exercise, Transfers Treatment Duration: Oct 30, 2019 Frequency: 6 times per week Estimated Hrs Per Day: 1.5 hours per day Patient and/or Family Agrees t: Yes Safety Risks/Education Patient Education: Correct Positioning, Safety Issues Teaching Recipient: Patient Teaching Methods: Discussion Response to Teaching: Verbalize Understanding Time/GCodes Time In: 1300 Time Out: 1315 Total Billed Treatment Time: 15 Total Billed Treatment 1, EX (15m) DAX COBURN SYSTEM DEVELOPMENT MANAGER Oct 24, 2019 13:13
--- NOTE | 2019-10-24 15:14 | Speech Therapy Daily Note ---
Speech Daily Progress Note Subjective Date Seen by Provider: Oct 24, 2019 Time Seen by Provider: 00:30 Patient was resting in her bed watching television when I entered her room this afternoon. Objective Patient completed a series of self need q/a with 90% with few redirections needed. Assessment Assessment Current Status: Good Progress Treatment Plan Continue Plan of Care Speech Short Term Goals Short Term Goals Short Term Goals 1) Patient will complete memory tasks related to daily needs at 90% or greater with minimal cues. 2) Patient will complete safety awareness tasks related to daily needs at 90% or greater with minimal cues. 3) Patient will complete problem solving tasks related to daily needs at 90% or greater with minimal cues. Speech Group Home Goals Disabilities Caregiver Goals Patient will improve cognitive-communication necessary for safety and daily living tasks with minimal assist. Speech-Plan Patient/Family Goals Patient/Family Goals: Patient will be discharged to a local SNF prior to returning to her home. Treatment Plan Speech Therapy Treatment Plan: Continue Plan of Care Treatment Duration: Oct 10, 2019 Frequency: 5 times per week Estimated Hrs Per Day: .5 hour per day Rehab Potential: Fair Barriers to Learning: Patient's recent CVA Pt/Family Agrees to Plan: Yes Safety Risks/Education Teaching Recipient: Patient Teaching Methods: Demonstration, Discussion Response to Teaching: Verbalize Understanding, Return Demonstration Education Topics Provided: Continued safety upon discharge Time Speech Therapy Time In: 14:00 Speech Therapy Time Out: 14:30 Total Billed Time: 30 Billed Treatment Time [address] Oct 24, 2019 15:14
--- NOTE | 2019-10-24 15:21 | NUR ---
"RD ASSESSMENT PMHx: HTN; stroke; TIA; diverticulosis; DM; CA(uterine) PT INTERACTION: Pt was awake and pleasant during nutrition follow-up. Pt states she has been eating okay since last assessment. Note avg PO intake 85% x4d, per chart review. Pt states no issues with n/v/c/d since last assessment. Note last BM was 10/21 and pt currently on bowel regimen of Colace BID; Senna BID; and Miralax BID, per chart review. ABNORMAL NUTRITION-RELATED LAB VALUES Labs taken 10/21 LOW: Na 131; K 5.1; Cl 94 glu labs taken 10/23 HIGH: glu 142 Est. kcal needs: 1065-0404 kcal | 15-18 kcal/kg Est. Pro needs: 89-112 g Pro | 0.8-1.0 g Pro/kg PES STATEMENT: Given current intake, no nutrition diagnosis at this time (NO-1.1) INTERVENTION: Continue with current diet order of CHO 75g/m 0snack diet. Will continue to follow and reassess as pt needs, intake, and status change. MONITOR/EVALUATE: PO Intake; Plan of Care; Hydration Status; Weight Status; Lab Values Jayjay Ramsey, MS, RD, LD"
[2019-10-24 17:54] VITALS: BP 126/84
[2019-10-24] MEDS: IBUPROFEN TABLET 200 MG TAB PO PRN (18:15)
[2019-10-24] MEDS: MULTIVIT W/MINERALS TAB (THERAGRAN M) PO SCH (21:18)
[2019-10-24] MEDS: ASPIRIN E.C. 81 MG (ECOTRIN) TAB PO SCH (21:18)
[2019-10-25] MEDS: inSUlin ASPART (NovoLOG) 1 UNIT/0.01 ML (CHARGE PER UNIT) SC SCH ×4 (05:32→22:00)
[2019-10-25 05:52] VITALS: BP 143/82
[2019-10-25] MEDS: LEVOTHYROXINE 75 MCG (LEVOTHROID) TABLET PO SCH (06:14)
[2019-10-25] MEDS: LEVOTHYROXINE 100 MCG (LEVOTHROID) TAB PO SCH (06:14)
[2019-10-25] MEDS: RT-ALBUTEROL/IPRATROPIUM 3 ML (DUONEB) VIAL INH SCH ×2 (07:13→18:42)
[2019-10-25] MEDS: VITAMIN D3 25 MCG (1,000 UNITS) TABLET PO SCH ×3 (08:21→21:58)
[2019-10-25] MEDS: PIOGLITAZONE 30MG (ACTOS) TAB PO SCH (08:21)
[2019-10-25] MEDS: OMEGA 3 (FISH OIL) 1000 MG CAP PO SCH (08:21)
[2019-10-25] MEDS: PANTOPRAZOLE 40 MG (PROTONIX) TAB PO SCH (08:21)
[2019-10-25] MEDS: lisINopril 40 MG (PRINIVIL) TABLET PO SCH (08:21)
[2019-10-25] MEDS: CLOPIDOGREL 75 MG (PLAVIX) TABLET PO SCH (08:21)
[2019-10-25] MEDS: ENOXAPARIN 40 MG/0.4 ML (LOVENOX) SYR SC SCH ×2 (08:21→21:59)
[2019-10-25] MEDS: DOCUSATE SODIUM 100 MG (COLACE) CAP PO SCH ×2 (09:49→22:03)
[2019-10-25] MEDS: polyethylene glycoL POWDER 17 GM (MIRALAX) PACK PO SCH ×2 (09:49→22:02)
[2019-10-25] MEDS: SENNA W/DOCUSATE (SENOKOT S) TABLET PO SCH ×2 (09:49→22:02)
--- NOTE | 2019-10-25 10:20 | Occupational Ther Daily Note ---
OT Current Status-Daily Note Subjective [id number]: Pt seen in bed. Pt agreeable to OT tx session. Pt denies pain. [id number] (30): Pt seen post-PT session. Pt agrees to OT tx. No pain. Mental Status/Objective Attachments: Oxygen ADL-Treatment Therapy Code Descriptions/Definitions Functional [place] Measure: 0=Not Assessed/NA 4=Minimal Assistance 1=Total Assistance 5=Supervision or Setup 2=Maximal Assistance 6=Modified [place] 3=Moderate Assistance 7=Complete IndependenceSCALE: Activities may be completed with or without assistive devices. 3-Xlwvkgvxym-ncordwt completes the activity by him/herself with no assistance from a helper. 5-Set-up or Clean-up Assistance-helper sets up or cleans up; patient completes activity. [place] assists only prior to or following the activity. 4-Supervision or Touching Assistance-helper provides verbal cues and/or touching/steadying and/or contact guard assistance as patient completes activity. Assistance may be provided throughout the activity or intermittently. 3-Partial/Moderate Assistance-helper does LESS THAN HALF the effort. [place] lifts, holds or supports trunk or limbs, but provides less than half the effort. 2-Substantial/Maximal Assistance-helper does MORE THAN HALF the effort. [place] lifts or holds trunk or limbs and provides more than half the effort. 0-Uhdtajtsj-dvjnff does ALL the effort. Patient does none of the effort to complete the activity. Or, the assistance of 2 or more helpers is required for the patient to complete the activity. If activity was not attempted, code reason: 7-Patient Refused. 9-Not Applicable-not attempted and the patient did not perform the activity before the current illness, exacerbation or injury. 10-Not Attempted due to Environmental Limitations-(lack of equipment, weather restraints, etc.). 88-Not Attempted due to Medical Conditions or Safety Concerns. Eating (QC): 6 Oral Hygiene (QC): 4 (SBA in stance at sink. Pt maintains balalnce, utilizes forearms to stabilize at sink. ) Shower/Bathe Self (QC): 7 (pt states completed yesterday and does not desire on this date. Agrees tomorrow if still here- pt educated on d/c tenative date and variables of SNF d/c.) Upper Body Dressing (QC): 6 Lower Body Dressing (QC): 4 (SBA in stance to cotton puller hips.) On/Off Footwear: 4 (SBA (EOB) pt completes doffing IND, use of sock aide for LLE and IND with RLE (pt requires intermittent CGA due to balance EOB)) Toileting Hygiene (QC): 6 Toilet Transfer (QC): 4 (CGA to toilet. Pt completes all tasks while talking them through- completes with safety and w/out cues. ) Other Treatment [id number]: Pt completes bed mob IND. Doffs clothing with SBA (LB) IND (UB). Pt dons bra on this date with IND. Pt completes all dressing tasks EOB with SBA - CGA at times for balance. Pt denies use of 02 at bed side- 02 taken and at 95%. Pt completes tooth brushing with SBA in stance and hair grooming in front of sink with IND (utilizes clip rather than hair tie). Pt pushed to therapy gym in w/c. Pt sits at arm bike, completes 5 min mod resistance (25 watt) without lupe k. Pt's 02 assessed with moderate exercise and no 02- pt at 85%, requires multiple rest breaks and recovers within a min. Pt states "just because I'm huffing doesn't mean I'm low on 02," pt's 02 placed back on with pt educated of use and SOB. Pt completes standing/ balance/ manipulation task with arm arc activity. Pt completes 12 arcs with R/ L 1x, rests for ~1 min. Stands once more to complete again. Pt's 02 maintains over 90%. Pt pushed back to room, requests back to bed. Pt stands and pivots to bed with CGA. Pt left in bed with all needs met, call light in reach. [id number] (30): Pt making tea. Agrees to toileting- completes as above with w/c. Pt washes hands at sink in w/c with IND. pt pushes self out to therapy gym. Positions self in front of table with cues, locks breaks without cues and stands to complete resistive clothes pin activity. Pt doffs all clothes pins with LUE(placed around body/ clothing by OT), pt able to find 7/9 clothes pins without cues and SBA for balance. Pt able to stabilize self with one hand on table. pt requires break, sits while completing resistive clothes pins with accuracy, no c/o pain in LUE. Pt able to manipulate top of clothes pin from palm to finger tips to have successful pinching 4/4 times. Pt then completes rubber band twirling with cues with LUE to down grade hair tying task. pt completes with success 2/2 times. Pt returns to room, transfers to bed with SBA. All needs met, call light in reach. Education OT Patient Education: Correct positioning, Energy conservation, Exercise program, Modified ADL techniques, Safety issues Teaching Recipient: Patient Teaching Methods: Demonstration, Discussion Response to Teaching: Verbalize Understanding, Return Demonstration OT Short Term Goals Short Term Goals Time Frame: Oct 16, 2019 Toileting hygiene: 2 (met) Shower/bathe self: 3 (met) Upper body dressin (met) Lower body dressin (met) OT Longterm Goals Retail Advertising Executive Goals Time Frame: Oct 30, 2019 Eating (QC): 6 (met) Oral Hygiene (QC): 6 (met) Toileting Hygiene (QC): 5 (met) Shower/Bathe Self (QC): 5 Upper Body Dressing (QC): 6 (met) Lower Body Dressing (QC): 5 On/Off Footwear (QC): 5 (met) Additional Goals: 1-Demonstrate ADL Tasks, 2-Verbalize Understanding, 3- ImproveStrength/Marjorie 1=Demonstrate adherence to instructed precautions during ADL tasks. 2=Patient will verbalize/demonstrate understanding of assistive devices/modifications for ADL. 3=Patient will improve strength/tolerance for activity to enable patient to perform ADL's. OT Education/Plan Problem List/Assessment Assessment: Decreased Activ Tolerance, Decreased UE Strength, Dependent Transfers, Impaired Coordination, Impaired Funct Balance, Impaired I ADL's, Impaired Self-Care Skills Discharge Recommendations Plan/Recommendations: Continue POC Therapy Discharge Recommendati: 24 Hour Supervision Treatment Plan/Plan of Care Treatment,Training & Education: Yes Patient would benefit from OT for education, treatment and training to promote independence in ADL's, mobility, safety and/or upper extremity function for ADL's. Plan of Care: ADL Retraining, Functional Mobility, Group Exercise/Act as Ind, UE Funct Exercise/Act, UE Neuromus Re-Ed/Coord Treatment Duration: Oct 30, 2019 Frequency: At least 5 of 7 days/Wk (IRF) Estimated Hrs Per Day: 1.5 hours per day Rehab Potential: Fair Time/GCodes Start Time: 08:00 (1315) Stop Time: 09:00 (1345) Total Time Billed (hr/min): 90 Billed Treatment Time [id number]: 1, ADL 2, EX, NM (60) [id number]: 1, ADL, EX (30) BARRY BYERS OTR Oct 25, 2019 10:20
--- NOTE | 2019-10-25 10:55 | NUR ---
Pastoral care visit.
--- NOTE | 2019-10-25 12:09 | PM&R Progress Note ---
Subjective HPI/CC On Admission Date Seen by Provider: Oct 25, 2019 Time Seen by Provider: 10:45 Subjective/Events-last exam Patient feels better and better Drinking and eating well Talks about her anxiety about DC to NH and seems to be difficult to disengage from in the room No falls but increased risk Checked med and labs Conferred with RN Reviewed therapy notes Review of Systems General: Fatigue Musculoskeletal: leg pain Neurological: Weakness, Numbness, Incoordination Objective Exam Vital Signs Vital Signs Date Time Temp Pulse Resp B/P (MAP) Pulse Ox O2 Delivery O2 Flow Rate FiO2 10/26/19 13:30 36.2 78 20 132/78 96 Room Air 10/25/19 07:13 1.00 10/24/19 10:35 21 Capillary Refill : Less Than 3 Seconds General Appearance: No Apparent Distress, WD/WN, Chronically ill, Obese HEENT: PERRL/EOMI, Normal ENT Inspection, Pharynx Normal Neck: Full Range of Motion, Normal Inspection, Non Tender, Supple, Carotid Bruit Respiratory: Chest Non Tender, Lungs Clear, Normal Breath Sounds, No Accessory Muscle Use, No Respiratory Distress, Decreased Breath Sounds Cardiovascular: Regular Rate, Rhythm, No Edema, No Gallop, No JVD, No Murmur, Normal Peripheral Pulses Gastrointestinal: Normal Bowel Sounds, No Organomegaly, No Pulsatile Mass, Non Tender, Soft Back: Normal Inspection, No CVA Tenderness, No Vertebral Tenderness Extremity: Normal Capillary Refill, Normal Inspection, Normal Range of Motion, Non Tender, No Calf Tenderness, No Pedal Edema Neurologic/Psychiatric: Alert, Oriented x3, No Motor/Sensory Deficits (except left arm and left leg 2-3/5), Normal Mood/Affect, clinical safety manager II-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 FIM Transfers Therapy Code Descriptions/Definitions Functional [place] Measure: 0=Not Assessed/NA 4=Minimal Assistance 1=Total Assistance 5=Supervision or Setup 2=Maximal Assistance 6=Modified [place] 3=Moderate Assistance 7=Complete IndependenceSCALE: Activities may be completed with or without assistive devices. 1-Zlxgkasxmv-kkcnalb completes the activity by him/herself with no assistance from a helper. 5-Set-up or Clean-up Assistance-helper sets up or cleans up; patient completes activity. [place] assists only prior to or following the activity. 4-Supervision or Touching Assistance-helper provides verbal cues and/or touching/steadying and/or contact guard assistance as patient completes activity. Assistance may be provided throughout the activity or intermittently. 3-Partial/Moderate Assistance-helper does LESS THAN HALF the effort. [place] lifts, holds or supports trunk or limbs, but provides less than half the effort. 2-Substantial/Maximal Assistance-helper does MORE THAN HALF the effort. [place] lifts or holds trunk or limbs and provides more than half the effort. 1-Vzunriyvn-wrtotu does ALL the effort. Patient does none of the effort to complete the activity. Or, the assistance of 2 or more helpers is required for the patient to complete the activity. If activity was not attempted, code reason: 7-Patient Refused. 9-Not Applicable-not attempted and the patient did not perform the activity before the current illness, exacerbation or injury. 10-Not Attempted due to Environmental Limitations-(lack of equipment, weather restraints, etc.). 88-Not Attempted due to Medical Conditions or Safety Concerns. Roll Left to Right (QC): 5 Sit to Lying (QC): 5 Sit to Stand (QC): 5 Chair/Upt-jo-Fbeus Xfer(QC): 4 Car Transfer (QC): 88 Gait Training Does the Patient Walk?: Yes Distance: 15' Walk 10 feet (QC): 4 Walk 50 ft with 2 Turns(QC): 88 Walk 150 ft (QC): 88 Walking 10ft/uneven surface-QC: 88 Gait Persons Needed: 1 Gait Assistive Device: FWW Wheelchair Training Does the Pt Use a Wheelchair?: Yes Wheel 50 ft with 2 turns (QC): 4 Wheel 150 ft (QC): 4 Type of Wheelchair: Manual Stair Training 1 Step (curb) (QC): 88 4 Steps (QC): 88 12 Steps (QC): 88 Balance Picking up an Object (QC): 88 ADL-Treatment Eating (QC): 6 Oral Hygiene (QC): 4 (SBA in stance at sink. Pt maintains balalnce, utilizes forearms to stabilize at sink. ) Bathing Location: L Arm, R Arm, L Upper Leg, R Upper Leg, L Lower Leg (including foot), R Lower Leg (including foot), Chest, Abdomen, Buttocks, Perineal Area Shower/Bathe Self (QC): 7 (pt states completed yesterday and does not desire on this date. Agrees tomorrow if still here- pt educated on d/c tenative date and variables of SNF d/c.) Upper Body Dressing (QC): 6 Lower Body Dressing (QC): 4 (SBA in stance to picker/puller hips.) On/Off Footwear (QC): 4 (SBA (EOB) pt completes doffing IND, use of sock aide for LLE and IND with RLE (pt requires intermittent CGA due to balance EOB)) Toileting Hygiene (QC): 4 (SBA. 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 Current smoker COPD Cognitive deficit improved HTN DM Periodic N/V chronic TIA 05/05 Constipation resolved 10/14/19 Hyponatremia 131 Plan: DC fluid restriction IRF protocol N/V management Hold Metformin due to N/V seems to be helping BM regimen to maintain DC fluid restriction Smoking cessation discussed DC NH soon once accepted (1) CVA (cerebral vascular accident) (2) Left-sided weakness (3) Tobacco abuse Status: Chronic (4) Stroke Status: Acute (5) DVT prophylaxis Status: Acute (6) COPD (chronic obstructive pulmonary disease) (7) Diabetes (8) Hyperlipemia (9) Hypertension (10) Leukocytosis Status: Acute (11) Hyponatremia Status: Acute (12) Smoker SUNNY ANDERSON DO Oct 25, 2019 12:09
--- NOTE | 2019-10-25 12:13 | Physical Therapy Daily Note ---
PT Daily Note-Current Subjective Pt sitting up in recliner upon arrival. Pt agrees to PT for QC scoring for possible DC tomorrow. Pain Location: No Pain Reported Mental Status Patient Orientation: Person, Place Attachments: Oxygen (Pt wearing O2 upon arrival, Nurse reports on Room air though, TRAVELING INVENTORY ASSOCIATE will monitor) Transfers SCALE: Activities may be completed with or without assistive devices. 7-Hepzsfbdtv-ywdmypn completes the activity by him/herself with no assistance from a helper. 5-Set-up or Clean-up Assistance-helper sets up or cleans up; patient completes activity. [place] assists only prior to or following the activity. 4-Supervision or Touching Assistance-helper provides verbal cues and/or touching/steadying and/or contact guard assistance as patient completes activity. Assistance may be provided throughout the activity or intermittently. 3-Partial/Moderate Assistance-helper does LESS THAN HALF the effort. [place] lifts, holds or supports trunk or limbs, but provides less than half the effort. 2-Substantial/Maximal Assistance-helper does MORE THAN HALF the effort. [place] lifts or holds trunk or limbs and provides more than half the effort. 1-Eysmlhkyu-auuwgt does ALL the effort. Patient does none of the effort to complete the activity. Or, the assistance of 2 or more helpers is required for the patient to complete the activity. If activity was not attempted, code reason: 7-Patient Refused. 9-Not Applicable-not attempted and the patient did not perform the activity before the current illness, exacerbation or injury. 10-Not Attempted due to Environmental Limitations-(lack of equipment, weather restraints, etc.). 88-Not Attempted due to Medical Conditions or Safety Concerns. Sit to Stand (QC): 5 Chair/Dfq-yz-Sjcjv Xfer(QC): 5 Toilet Transfer (QC): 5 Car Transfer (QC): 5 Weight Bearing Right Lower Extremity: Right Full Weight Bearing Left Lower Extremity: Left Full Weight Bearing Gait Training Does the Patient Walk?: Yes Distance: 150' Walk 10 feet (QC): 4 Walk 50 ft with 2 Turns(QC): 4 Walk 150 ft (QC): 4 Walking 10ft/uneven surface-QC: 4 Gait Persons Needed: 1 Gait Assistive Device: FWW TRAVELING INVENTORY ASSOCIATE gives VC for safety & slowing down during ambulation. Wheelchair Training Does the Pt Use a Wheelchair?: No Stair Training 1 Step (curb) (QC): 88 4 Steps (QC): 88 12 Steps (QC): 88 Pt is not able to lift L LE enough to place on step. This is not attempted. Balance Picking up an Object (QC): 9 Special Test Comments Pt will use legal billing coordinator for safety after DC. Exercises Seated Therapy Exercises: Ankle pumps, Long arc quads, Hip flexion, Kicking activity, Hip abd/add Seated Reps: 15 NuStep Minutes: 11 NuStep Workload: 4 Treatments Pt transfers from recliner to standing then uses restroom before leaving room. Pt ambulates in hallway. Pt uses NuStep for 11m at WL 4, ambulates across varying surface, then completes Seated Ex. Pt ambulates in hallway and returns to room to rest at EOB. Pt has all needs met, call light in hand. Assessment Current Status: Fair Progress Pt needs VC for safety and social awareness. Pt's O2 stays in upper 90's throughout Rx on room air. PT Firefighter Type One Goals Residential Goals PT Residential Goals Time Frame: Oct 30, 2019 Roll Left & Right (QC): 6 Sit to Lying (QC): 6 Lying-Sitting on Side/Bed(QC): 6 Sit to Stand (QC): 6 Chair/Wko-qi-Vacry Xfer(QC): 6 Toilet Transfer (QC): 6 Car Transfer (QC): 6 Does the Patient Walk: Yes Walk 10 feet (QC): 6 Walk 50ft with 2 Turns (QC): 6 Walk 150 ft (QC): 6 Walking 10ft on Uneven Surface: 6 1 Step (curb) (QC): 6 4 Steps (QC): 6 12 Steps (QC): 6 Picking up an Object (QC): 6 Does the Pt use WC or Scooter?: No Wheel 50 feet with 2 turns (QC: 09 Wheel 150 feet: 09 PT Plan Problem List Problem List: Activity Tolerance, Functional Strength, Safety, Balance, Gait Treatment/Plan Treatment Plan: Continue Plan of Care Treatment Plan: Bed Mobility, Concurrent Therapy, Education, Functional Activity Marjorie, Functional Strength, Group Therapy, Gait, Safety, Therapeutic Exercise, Transfers Treatment Duration: Oct 30, 2019 Frequency: 6 times per week Estimated Hrs Per Day: 1.5 hours per day Patient and/or Family Agrees t: Yes Safety Risks/Education Patient Education: Gait Training, Transfer Techniques, Correct Positioning, Sa fety Issues Teaching Recipient: Patient Teaching Methods: Discussion Response to Teaching: Verbalize Understanding Time/GCodes Time In: 1100 Time Out: 1200 Total Billed Treatment Time: 60 Total Billed Treatment 1, GT (15m), EX x2 (30m) & FA (15m) DAX COBURN TRAVELING INVENTORY ASSOCIATE Oct 25, 2019 12:13
--- NOTE | 2019-10-25 13:24 | Speech Therapy Daily Note ---
Speech Daily Progress Note Subjective Date Seen by Provider: Oct 25, 2019 Time Seen by Provider: 00:30 Patient was sitting up in her bed following her OT session when I entered her room. Objective Patient completed a series of safety awareness tasks via q/a related to her daily needs at 95% without cues. Assessment Assessment Current Status: Good Progress Treatment Plan Continue Plan of Care Speech Short Term Goals Short Term Goals Short Term Goals 1) Patient will complete memory tasks related to daily needs at 90% or greater with minimal cues. 2) Patient will complete safety awareness tasks related to daily needs at 90% or greater with minimal cues. 3) Patient will complete problem solving tasks related to daily needs at 90% or greater with minimal cues. Speech Software Educator Goals Prison Goals Patient will improve cognitive-communication necessary for safety and daily living tasks with minimal assist. Speech-Plan Patient/Family Goals Patient/Family Goals: Patient will discharge to SNF. Treatment Plan Speech Therapy Treatment Plan: Continue Plan of Care Treatment Duration: Oct 10, 2019 Frequency: 5 times per week Estimated Hrs Per Day: .5 hour per day Rehab Potential: Fair Barriers to Learning: Patient's recent CVA Pt/Family Agrees to Plan: Yes Safety Risks/Education Teaching Recipient: Patient Teaching Methods: Demonstration, Discussion Response to Teaching: Verbalize Understanding, Return Demonstration Education Topics Provided: Continued safety upon discharge Time Speech Therapy Time In: 10:30 Speech Therapy Time Out: 11:00 Total Billed Time: 30 Billed Treatment Time 1, SLTS No QUALITY CODES EXPRESSION OF IDEAS/WANTS: 4 UNDERSTANDING VERBAL CONTENT: 4 BRIEF INTERVIEW MENTAL STATUS: YES REPETITION OF 3 WORDS: 3 TEMPORAL ORIENTATION: YEAR: CORRECT, MONTH: CORRECT, DAY: CORRECT RECALL SOCK: YES, COLOR: YES, BED: YES MEMORY/RECALL ABILITY: SEASON, LOCATION OF ROOM, THAT SHE IS IN THE [facility] JHOANA MUNOZ Oct 25, 2019 13:23
--- NOTE | 2019-10-25 13:25 | Physical Therapy Daily Note ---
PT Daily Note-Current Subjective Pt laying Supine in bed. Pt agrees to finish QC scoring for possible DC tomorrow (10/25). Mental Status Patient Orientation: Person, Place Transfers SCALE: Activities may be completed with or without assistive devices. 3-Eedrqzbgzo-bozbhqb completes the activity by him/herself with no assistance from a helper. 5-Set-up or Clean-up Assistance-helper sets up or cleans up; patient completes activity. [place] assists only prior to or following the activity. 4-Supervision or Touching Assistance-helper provides verbal cues and/or touching/steadying and/or contact guard assistance as patient completes activity. Assistance may be provided throughout the activity or intermittently. 3-Partial/Moderate Assistance-helper does LESS THAN HALF the effort. [place] lifts, holds or supports trunk or limbs, but provides less than half the effort. 2-Substantial/Maximal Assistance-helper does MORE THAN HALF the effort. [place] lifts or holds trunk or limbs and provides more than half the effort. 5-Rlfbfknjj-omybkv does ALL the effort. Patient does none of the effort to complete the activity. Or, the assistance of 2 or more helpers is required for the patient to complete the activity. If activity was not attempted, code reason: 7-Patient Refused. 9-Not Applicable-not attempted and the patient did not perform the activity before the current illness, exacerbation or injury. 10-Not Attempted due to Environmental Limitations-(lack of equipment, weather restraints, etc.). 88-Not Attempted due to Medical Conditions or Safety Concerns. Roll Left & Right (QC): 6 Sit to Lying (QC): 6 Lying to Sitting/Side of Bed(Q: 6 Sit to Stand (QC): 5 Chair/Wew-xu-Rdfnb Xfer(QC): 5 Pt uses bed rails to maneuver in bed. Weight Bearing Right Lower Extremity: Right Full Weight Bearing Left Lower Extremity: Left Full Weight Bearing Wheelchair Training Does the Pt Use a Wheelchair?: Yes Wheel 50 ft with 2 turns (QC): 5 Type of Wheelchair: Manual Pt uses [facility] for long distance mobility or when needing use of B UE. Treatments Pt completes bed mobility. Pt then transfers from EOB to [facility] using SPT. Pt is able to propel self in hallway to get drink before OT arrives for OT Rx. Assessment Current Status: Good Progress Pt tolerates Rx well. PT Salesperson Books Goals Salesperson Books Goals PT Salesperson Books Goals Time Frame: Oct 30, 2019 Roll Left & Right (QC): 6 Sit to Lying (QC): 6 Lying-Sitting on Side/Bed(QC): 6 Sit to Stand (QC): 6 Chair/Smi-xa-Fsznj Xfer(QC): 6 Toilet Transfer (QC): 6 Car Transfer (QC): 6 Does the Patient Walk: Yes Walk 10 feet (QC): 6 Walk 50ft with 2 Turns (QC): 6 Walk 150 ft (QC): 6 Walking 10ft on Uneven Surface: 6 1 Step (curb) (QC): 6 4 Steps (QC): 6 12 Steps (QC): 6 Picking up an Object (QC): 6 Does the Pt use WC or Scooter?: No Wheel 50 feet with 2 turns (QC: 09 Wheel 150 feet: 09 PT Plan Problem List Problem List: Activity Tolerance, Safety Treatment/Plan Treatment Plan: Continue Plan of Care Treatment Plan: Bed Mobility, Concurrent Therapy, Education, Functional Activity Marjorie, Functional Strength, Group Therapy, Gait, Safety, Therapeutic Exercise, Transfers Treatment Duration: Oct 30, 2019 Frequency: 6 times per week Estimated Hrs Per Day: 1.5 hours per day Patient and/or Family Agrees t: Yes Safety Risks/Education Patient Education: Transfer Techniques, Correct Positioning, W/C Management, Safety Issues Teaching Recipient: Patient Teaching Methods: Discussion Response to Teaching: Verbalize Understanding Time/GCodes Time In: 1300 Time Out: 1315 Total Billed Treatment Time: 15 Total Billed Treatment 1, FA (15m) DAX COBURN PTA Oct 25, 2019 13:25
--- NOTE | 2019-10-25 13:26 | NUR ---
CM/SS WEEKLY TEAM CONFERENCE SUMMARY Visited with patient and then with daughter Ofelia Spaulding regarding moving forward on a community nursing facility placement for patient. Ofelia verbalized they understand patient will transfer to first accepting facility because of the change in acceptance rates due to Pandemic. She did reiterate they would not agree to placement at [facility]. Senior Examiner completed referral with [facility] yesterday, they denied admission today because of Medicaid benefits. Referral completed with [facility], targeting [facility]. Hopeful for acceptance, patient could hopefully become eligible for assisted living environment, perhaps [facility] under [facility] umbrella. CARE Assessment not required at this time due to Covid19 Pandemic issues and shut downs.
--- NOTE | 2019-10-25 16:39 | NUR ---
CM/SS DISCHARGE PLANNING [facility] approved patient past the first review, they will forward referral to [employer] for final acceptance. COVID19 Documentation/assessment required, utilizing [employer] form. Will fax tomorrow a.m. once physician has completed/signed. CARE Assessment not required at this time as earlier noted. Depending on timeliness of process, patient may discharge Tuesday10/26/19 or Tuesday10/29/19. Patient aware.
[2019-10-25 17:14] VITALS: BP 135/86
[2019-10-25] MEDS: ASPIRIN E.C. 81 MG (ECOTRIN) TAB PO SCH (21:58)
[2019-10-25] MEDS: MULTIVIT W/MINERALS TAB (THERAGRAN M) PO SCH (21:58)
[2019-10-25] MEDS: IBUPROFEN TABLET 200 MG TAB PO PRN (22:15)
[2019-10-26] MEDS: LEVOTHYROXINE 100 MCG (LEVOTHROID) TAB PO SCH (06:00)
[2019-10-26] MEDS: LEVOTHYROXINE 75 MCG (LEVOTHROID) TABLET PO SCH (06:00)
[2019-10-26] MEDS: inSUlin ASPART (NovoLOG) 1 UNIT/0.01 ML (CHARGE PER UNIT) SC SCH ×2 (06:02→11:26)
[2019-10-26 06:19] VITALS: BP 146/86
[2019-10-26] MEDS: RT-ALBUTEROL/IPRATROPIUM 3 ML (DUONEB) VIAL INH SCH (07:35)
[2019-10-26] MEDS: CLOPIDOGREL 75 MG (PLAVIX) TABLET PO SCH (09:26)
[2019-10-26] MEDS: lisINopril 40 MG (PRINIVIL) TABLET PO SCH (09:26)
[2019-10-26] MEDS: PIOGLITAZONE 30MG (ACTOS) TAB PO SCH (09:26)
[2019-10-26] MEDS: ENOXAPARIN 40 MG/0.4 ML (LOVENOX) SYR SC SCH (09:26)
[2019-10-26] MEDS: VITAMIN D3 25 MCG (1,000 UNITS) TABLET PO SCH ×2 (09:26→14:04)
[2019-10-26] MEDS: PANTOPRAZOLE 40 MG (PROTONIX) TAB PO SCH (09:26)
[2019-10-26] MEDS: OMEGA 3 (FISH OIL) 1000 MG CAP PO SCH (09:26)
[2019-10-26] MEDS: polyethylene glycoL POWDER 17 GM (MIRALAX) PACK PO SCH (09:27)
[2019-10-26] MEDS: DOCUSATE SODIUM 100 MG (COLACE) CAP PO SCH (10:27)
[2019-10-26] MEDS: SENNA W/DOCUSATE (SENOKOT S) TABLET PO SCH (10:27)
--- NOTE | 2019-10-26 10:38 | Occupational Ther Daily Note ---
OT Current Status-Daily Note Subjective [id number]: Pt seen in bed, pt agrees to OT tx session hesitantly. Pt denies pain. ADL-Treatment Therapy Code Descriptions/Definitions Functional [place] Measure: 0=Not Assessed/NA 4=Minimal Assistance 1=Total Assistance 5=Supervision or Setup 2=Maximal Assistance 6=Modified [place] 3=Moderate Assistance 7=Complete IndependenceSCALE: Activities may be completed with or without assistive devices. 7-Fxdhunmwbw-nlfgrsm completes the activity by him/herself with no assistance from a helper. 5-Set-up or Clean-up Assistance-helper sets up or cleans up; patient completes activity. [place] assists only prior to or following the activity. 4-Supervision or Touching Assistance-helper provides verbal cues and/or touching/steadying and/or contact guard assistance as patient completes activity. Assistance may be provided throughout the activity or intermittently. 3-Partial/Moderate Assistance-helper does LESS THAN HALF the effort. [place] lifts, holds or supports trunk or limbs, but provides less than half the effort. 2-Substantial/Maximal Assistance-helper does MORE THAN HALF the effort. [place] lifts or holds trunk or limbs and provides more than half the effort. 4-Cfmhhhccf-zsdfmu does ALL the effort. Patient does none of the effort to complete the activity. Or, the assistance of 2 or more helpers is required for the patient to complete the activity. If activity was not attempted, code reason: 7-Patient Refused. 9-Not Applicable-not attempted and the patient did not perform the activity before the current illness, exacerbation or injury. 10-Not Attempted due to Environmental Limitations-(lack of equipment, weather restraints, etc.). 88-Not Attempted due to Medical Conditions or Safety Concerns. Eating (QC): 6 Oral Hygiene (QC): 6 Bathing Location: L Arm, R Arm, L Upper Leg, R Upper Leg, L Lower Leg (including foot), R Lower Leg (including foot), Chest, Abdomen, Buttocks, Perineal Area Shower/Bathe Self (QC): 4 (Pt requires CGA from bed to sc. Pt requires cues for 2WW positioning and hand positioning into shower. Pt sits with control on sc. Pt showers with SUP, SBA for bottom/ yudelka hygiene in stance (pt requires cues for safety awareness, as she brings R leg up and places on sc, requires gb to right balance), pt states "that's what I usually do." Pt educated on thinking about safe choices and acknowledging safety concerns (wet, naked, etc..) Pt agrees, stating she will talk items through prior to completing them to both herself and OT) Upper Body Dressing (QC): 6 Lower Body Dressing (QC): 4 (SBA in stance to pull up. Completes without use of AE.) On/Off Footwear: 6 (Mod I, use of sock aide. ) Toileting Hygiene (QC): 6 Toilet Transfer (QC): 4 (SBA, correct use of gb and walker placement.) Other Treatment [id number]: Pt educated on potential placement to SNF. Pt expresses anxious thoughts due to "not enjoying change." Pt completes bed mob IND, sit to stand and amb to toilet/ sc with CGA. Pt completes ADLs as above. Pt denied use of 02 on this date, pt's 02 assessed after bending for LB dressing tasks (85%), pt recovers with cues within 15 sec. Pt completes standing task (brushing teeth at sink), 02 assessed (95%). Pt educated on completing deep breaths during bending/ LB dressing tasks due to decreased 02. Pt agrees. Pt able to tie hair tie 3x (requires a 4th for tightness, but able to complete with increased manipulation on this date). [employer] strength assessed bilaterally: L avg of 35, R avg of 50lbs. Pt educated on findings, all needs met, pt in recliner chair with chair alarm on, call light in reach. Education OT Patient Education: Correct positioning, Energy conservation, Modified ADL techniques, Progress toward Goal/Update tx plan, Safety issues, Transfer techniques Teaching Recipient: Patient Teaching Methods: Demonstration, Discussion Response to Teaching: Verbalize Understanding, Return Demonstration OT Short Term Goals Short Term Goals Time Frame: Oct 16, 2019 Toileting hygiene: 2 (met) Shower/bathe self: 3 (met) Upper body dressin (met) Lower body dressin (met) OT Caramel Candy Maker Helper Goals Caramel Candy Maker Helper Goals Time Frame: Oct 30, 2019 Eating (QC): 6 (met) Oral Hygiene (QC): 6 (met) Toileting Hygiene (QC): 5 (met) Shower/Bathe Self (QC): 5 Upper Body Dressing (QC): 6 (met) Lower Body Dressing (QC): 5 On/Off Footwear (QC): 5 (met) Additional Goals: 1-Demonstrate ADL Tasks, 2-Verbalize Understanding, 3- ImproveStrength/Marjorie 1=Demonstrate adherence to instructed precautions during ADL tasks. 2=Patient will verbalize/demonstrate understanding of assistive devices/modifications for ADL. 3=Patient will improve strength/tolerance for activity to enable patient to perform ADL's. OT Education/Plan Problem List/Assessment Assessment: Decreased Activ Tolerance, Decreased Safety Aware, Decreased UE Strength, Dependent Transfers, Impaired Coordination, Impaired Funct Balance, Impaired I ADL's, Impaired Self-Care Skills Discharge Recommendations Plan/Recommendations: Continue POC Therapy Discharge Recommendati: 24 Hour Supervision Treatment Plan/Plan of Care Treatment,Training & Education: Yes Patient would benefit from OT for education, treatment and training to promote independence in ADL's, mobility, safety and/or upper extremity function for ADL's. Plan of Care: ADL Retraining, Functional Mobility, Group Exercise/Act as Ind, UE Funct Exercise/Act, UE Neuromus Re-Ed/Coord Treatment Duration: Oct 30, 2019 Frequency: At least 5 of 7 days/Wk (IRF) Estimated Hrs Per Day: 1.5 hours per day Rehab Potential: Fair Time/GCodes Start Time: 08:00 Stop Time: 09:00 Total Time Billed (hr/min): 60 Billed Treatment Time [id number]: 1, ADL 4 (60) BARRY BYERS OTR Oct 26, 2019 10:38
--- NOTE | 2019-10-26 10:42 | PM&R Progress Note ---
Subjective HPI/CC On Admission Date Seen by Provider: Oct 26, 2019 Time Seen by Provider: 10:45 Subjective/Events-last exam BM normal with prune juice No more fluid restriction now and she is delighted Weakness of left side is getting better and better BP ok Overall very happy and optimistic with her progress Patient reluctant to go to NH at DC but there is no other option in the midst of COVID-19 crisis. Reaching out to PT OT Cognitively she is much improved Checked med and labs Conferred with RN Reviewed therapy notes Objective Exam Vital Signs Vital Signs Date Time Temp Pulse Resp B/P (MAP) Pulse Ox O2 Delivery O2 Flow Rate FiO2 10/26/19 07:38 90 Room Air 10/26/19 06:19 36.3 82 22 146/86 (106) 10/25/19 07:13 1.00 10/24/19 10:35 21 Capillary Refill : Less Than 3 Seconds General Appearance: No Apparent Distress, WD/WN, Chronically ill, Obese HEENT: PERRL/EOMI, Normal ENT Inspection, Pharynx Normal Neck: Full Range of Motion, Normal Inspection, Non Tender, Supple, Carotid Bruit Respiratory: Chest Non Tender, Lungs Clear, Normal Breath Sounds, No Accessory Muscle Use, No Respiratory Distress, Decreased Breath Sounds Cardiovascular: Regular Rate, Rhythm, No Edema, No Gallop, No JVD, No Murmur, Normal Peripheral Pulses Gastrointestinal: Normal Bowel Sounds, No Organomegaly, No Pulsatile Mass, Non Tender, Soft Back: Normal Inspection, No CVA Tenderness, No Vertebral Tenderness Extremity: Normal Capillary Refill, Normal Inspection, Normal Range of Motion, Non Tender, No Calf Tenderness, No Pedal Edema Neurologic/Psychiatric: Alert, Oriented x3, No Motor/Sensory Deficits (except left arm and left leg 2-3/5), Normal Mood/Affect, anthropology 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 FIM Transfers Therapy Code Descriptions/Definitions Functional [place] Measure: 0=Not Assessed/NA 4=Minimal Assistance 1=Total Assistance 5=Supervision or Setup 2=Maximal Assistance 6=Modified [place] 3=Moderate Assistance 7=Complete IndependenceSCALE: Activities may be completed with or without assistive devices. 9-Ycbaqgbari-zmkdmcd completes the activity by him/herself with no assistance from a helper. 5-Set-up or Clean-up Assistance-helper sets up or cleans up; patient completes activity. [place] assists only prior to or following the activity. 4-Supervision or Touching Assistance-helper provides verbal cues and/or touching/steadying and/or contact guard assistance as patient completes activity. Assistance may be provided throughout the activity or intermittently. 3-Partial/Moderate Assistance-helper does LESS THAN HALF the effort. [place] lifts, holds or supports trunk or limbs, but provides less than half the effort. 2-Substantial/Maximal Assistance-helper does MORE THAN HALF the effort. [place] lifts or holds trunk or limbs and provides more than half the effort. 7-Bavfcnnls-xvaiwe does ALL the effort. Patient does none of the effort to complete the activity. Or, the assistance of 2 or more helpers is required for the patient to complete the activity. If activity was not attempted, code reason: 7-Patient Refused. 9-Not Applicable-not attempted and the patient did not perform the activity before the current illness, exacerbation or injury. 10-Not Attempted due to Environmental Limitations-(lack of equipment, weather restraints, etc.). 88-Not Attempted due to Medical Conditions or Safety Concerns. Roll Left to Right (QC): 6 Sit to Lying (QC): 6 Sit to Stand (QC): 5 Chair/Sbz-gt-Qabxo Xfer(QC): 5 Car Transfer (QC): 5 Gait Training Does the Patient Walk?: Yes Distance: 150' Walk 10 feet (QC): 4 Walk 50 ft with 2 Turns(QC): 4 Walk 150 ft (QC): 4 Walking 10ft/uneven surface-QC: 4 Gait Persons Needed: 1 Gait Assistive Device: FWW Wheelchair Training Does the Pt Use a Wheelchair?: Yes Wheel 50 ft with 2 turns (QC): 5 Wheel 150 ft (QC): 4 Type of Wheelchair: Manual Stair Training 1 Step (curb) (QC): 88 4 Steps (QC): 88 12 Steps (QC): 88 Balance Picking up an Object (QC): 9 ADL-Treatment Eating (QC): 6 Oral Hygiene (QC): 6 Bathing Location: L Arm, R Arm, L Upper Leg, R Upper Leg, L Lower Leg (including foot), R Lower Leg (including foot), Chest, Abdomen, Buttocks, Perineal Area Shower/Bathe Self (QC): 4 (Pt requires CGA from bed to sc. Pt requires cues for 2WW positioning and hand positioning into shower. Pt sits with control on sc. Pt showers with SUP, SBA for bottom/ yudelka hygiene in stance (pt requires cues for safety awareness, as she brings R leg up and places on sc, requires gb to right balance), pt states "that's what I usually do." Pt educated on thinking about safe choices and acknowledging safety concerns (wet, naked, etc..) Pt agrees, stating she will talk items through prior to completing them to both herself and OT) Upper Body Dressing (QC): 6 Lower Body Dressing (QC): 4 (SBA in stance to pull up. Completes without use of AE.) On/Off Footwear (QC): 6 (Mod I, use of sock aide. ) Toileting Hygiene (QC): 6 Toilet Transfer (QC): 4 (SBA, correct use of gb and walker placement.) Assessment/Plan Assessment and Plan Assess & Plan/Chief Complaint Assessment: CVA w/left sided weakness now dramatically improved Current smoker COPD Cognitive deficit improved HTN DM Periodic N/V chronic TIA 05/05 Constipation resolved 10/14/19 Hyponatremia 131 Plan: DC fluid restriction IRF protocol N/V management Hold Metformin due to N/V seems to be helping BM regimen to maintain DC fluid restriction Smoking cessation discussed DC NH once accepted (1) CVA (cerebral vascular accident) (2) Left-sided weakness (3) Tobacco abuse Status: Chronic (4) Stroke Status: Acute (5) DVT prophylaxis Status: Acute (6) COPD (chronic obstructive pulmonary disease) (7) Diabetes (8) Hyperlipemia (9) Hypertension (10) Leukocytosis Status: Acute (11) Hyponatremia Status: Acute (12) Smoker SUNNY ANDERSON DO Oct 26, 2019 10:42
[2019-10-26] MEDS ORDERED: CLOP75TA28 PO (10:54)
[2019-10-26] MEDS ORDERED: IPRA3AMP31 INH (10:54)
[2019-10-26] MEDS ORDERED: PANT40TA3 PO (10:54)
--- NOTE | 2019-10-26 10:54 | Discharge Summary ---
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 Current smoker COPD Cognitive deficit improved HTN DM Periodic N/V chronic TIA 05/05 Constipation resolved 10/14/19 Hyponatremia 131 Plan: DC fluid restriction IRF protocol N/V management Hold Metformin due to N/V seems to be helping BM regimen to maintain DC fluid restriction Smoking cessation discussed DC NH today ML (1) CVA (cerebral vascular accident) (2) Left-sided weakness (3) Tobacco abuse Status: Chronic (4) Stroke Status: Acute (5) DVT prophylaxis Status: Acute (6) COPD (chronic obstructive pulmonary disease) (7) Diabetes (8) Hyperlipemia (9) Hypertension (10) Leukocytosis Status: Acute (11) Hyponatremia Status: Acute (12) Smoker Discharge Summary Discharge Physical Examination Allergies: Coded Allergies: Ywspakj-Nnj-Xwj Reductase Inhibitor (Verified Allergy, Unknown, 10/09/19) muscle pain meperidine (Verified Allergy, Unknown, 08/16/13) Vitals & I&Os Vital Signs Date Time Temp Pulse Resp B/P (MAP) Pulse Ox O2 Delivery O2 Flow Rate FiO2 10/26/19 13:30 36.2 78 20 132/78 96 Room Air 10/25/19 07:13 1.00 10/24/19 10:35 21 General Appearance: Alert, Oriented X3, Cooperative Respiratory: Clear to Auscultation Cardiovascular: Regular Rate Neuro: Normal Gait, Normal Speech, Strength at 5/5 X4 Ext (except left leg and arm weak 4/5) Hospital Course Was the Problem List Reviewed?: Yes Patient had a lengthy course while in IRF after suffering a CVA with left sided weakness. Cognitive issues were managed with excellent results by RT and nursing staff. Constipation resolved after laxatives and prune juice. Falls were a continued risk during her course at IRF. 17 days were required in order to regain enough ADL's and ambulation to DC to [place] because she had no help at home and could not live with her daughters since they work and AL was not an economic option. BP and BS were stable at time of DC and all DC meds were reviewed in- depth and double checked. Labs (last 24 hrs) Laboratory Tests 10/09/19 17:01: Glucometer 188H 10/10/19 05:33: White Blood Count 13.4H, Red Blood Count 4.65, Hemoglobin 13.7, Hematocrit 41, Mean Corpuscular Volume 88, Mean Corpuscular Hemoglobin 30, Mean Corpuscular Hemoglobin Concent 34, Red Cell Distribution Width 14.5, Platelet Count 346, Mean Platelet Volume 10.5H, Neutrophils (%) (Auto) 74, Lymphocytes (%) (Auto) 16, Monocytes (%) (Auto) 8, Eosinophils (%) (Auto) 2, Basophils (%) (Auto) 0, Neutrophils # (Auto) 9.9H, Lymphocytes # (Auto) 2.2, Monocytes # (Auto) 1.1H, Eosinophils # (Auto) 0.2, Basophils # (Auto) 0.1, Sodium Level 128L, Potassium Level 4.3, Chloride Level 92L, Carbon Dioxide Level 24, Anion Gap 12, Blood Urea Nitrogen 9, Creatinine 0.70, Estimat Glomerular Filtration Rate > 60, BUN/Creatinine Ratio 13, Glucose Level 176H, Calcium Level 9.1, Corrected Calcium 9.1, Total Bilirubin 0.4, Aspartate Amino Transf (AST/SGOT) 24, Alanine Aminotransferase (ALT/SGPT) 18, Alkaline Phosphatase 79, Total Protein 6.5, Albumin 4.0 10/10/19 12:01: Glucometer 151H 10/10/19 16:04: Glucometer 149H 10/10/19 20:18: Glucometer 177H 10/11/19 05:36: Glucometer 155H 10/11/19 11:33: Glucometer 184H 10/11/19 15:44: Glucometer 155H 10/11/19 20:26: Glucometer 156H 10/12/19 05:52: Glucometer 152H 10/12/19 13:04: Glucometer 169H 10/12/19 16:35: Glucometer 127H 10/12/19 20:34: Glucometer 203H 10/13/19 05:03: Glucometer 153H 10/13/19 11:08: Glucometer 145H 10/13/19 16:14: Glucometer 197H 10/13/19 20:34: Glucometer 152H 10/14/19 05:54: Glucometer 145H 10/14/19 10:49: Glucometer 204H 10/14/19 16:02: Glucometer 171H 10/14/19 20:22: Glucometer 197H 10/15/19 06:24: White Blood Count 11.0, Red Blood Count 4.91, Hemoglobin 14.5, Hematocrit 44, Mean Corpuscular Volume 89, Mean Corpuscular Hemoglobin 30, Mean Corpuscular Hemoglobin Concent 33, Red Cell Distribution Width 14.4, Platelet Count 383, Mean Platelet Volume 10.8H, Neutrophils (%) (Auto) 65, Lymphocytes (%) (Auto) 21, Monocytes (%) (Auto) 11, Eosinophils (%) (Auto) 3, Basophils (%) (Auto) 1, Neutrophils # (Auto) 7.1, Lymphocytes # (Auto) 2.3, Monocytes # (Auto) 1.2H, Eosinophils # (Auto) 0.3, Basophils # (Auto) 0.1, Sodium Level 130L, Potassium Level 4.7, Chloride Level 93L, Carbon Dioxide Level 27, Anion Gap 10, Blood Urea Nitrogen 11, Creatinine 0.72, Estimat Glomerular Filtration Rate > 60, BUN/Creatinine Ratio 15, Glucose Level 137H, Calcium Level 9.4, Corrected Calcium 9.3, Total Bilirubin 0.3, Aspartate Amino Transf (AST/SGOT) 19, Alanine Aminotransferase (ALT/SGPT) 19, Alkaline Phosphatase 89, Total Protein 7.1, Albumin 4.1 10/15/19 07:30: Glucometer 163H 10/15/19 11:05: Glucometer 159H 10/15/19 15:57: Glucometer 179H 10/15/19 20:26: Glucometer 195H 10/16/19 06:02: Glucometer 148H 10/16/19 10:51: Glucometer 169H 10/16/19 15:43: Glucometer 183H 10/16/19 20:22: Glucometer 215H 10/17/19 05:14: Glucometer 156H 10/17/19 11:01: Glucometer 153H 10/17/19 15:29: Glucometer 173H 10/17/19 20:10: Glucometer 186H 10/18/19 05:19: Glucometer 156H 10/18/19 05:57: Sodium Level 130L, Potassium Level 4.7, Chloride Level 94L, Carbon Dioxide Level 24, Anion Gap 12, Blood Urea Nitrogen 14, Creatinine 0.72, Estimat Glomerular Filtration Rate > 60, BUN/Creatinine Ratio 19, Glucose Level 154H, Calcium Level 9.3, Corrected Calcium 9.3, Total Bilirubin 0.3, Aspartate Amino Transf (AST/SGOT) 18, Alanine Aminotransferase (ALT/SGPT) 20, Alkaline Phosphatase 75, Total Protein 7.0, Albumin 4.0 10/18/19 06:06: White Blood Count 9.5, Red Blood Count 4.67, Hemoglobin 14.0, Hematocrit 41, Mean Corpuscular Volume 89, Mean Corpuscular Hemoglobin 30, Mean Corpuscular Hemoglobin Concent 34, Red Cell Distribution Width 14.2, Platelet Count 390, Mean Platelet Volume 10.4, Neutrophils (%) (Auto) 66, Lymphocytes (%) (Auto) 22, Monocytes (%) (Auto) 9, Eosinophils (%) (Auto) 3, Basophils (%) (Auto) 1, Neutrophils # (Auto) 6.2, Lymphocytes # (Auto) 2.0, Monocytes # (Auto) 0.9, Eosinophils # (Auto) 0.2, Basophils # (Auto) 0.1 10/18/19 10:59: Glucometer 189H 10/18/19 15:55: Glucometer 183H 10/18/19 20:49: Glucometer 164H 10/19/19 05:31: Glucometer 155H 10/19/19 10:57: Glucometer 168H 10/19/19 16:11: Glucometer 151H 10/19/19 20:34: Glucometer 228H 10/20/19 05:16: Glucometer 172H 10/20/19 11:04: Glucometer 152H 10/20/19 16:10: Glucometer 196H 10/20/19 20:11: Glucometer 155H 10/21/19 05:00: Glucometer 151H 10/21/19 10:35: Glucometer 172H 10/21/19 15:55: Glucometer 205H 10/21/19 20:12: Glucometer 166H 10/22/19 04:33: Glucometer 151H 10/22/19 05:15: White Blood Count 10.8, Red Blood Count 4.78, Hemoglobin 14.1, Hematocrit 42, Mean Corpuscular Volume 88, Mean Corpuscular Hemoglobin 30, Mean Corpuscular Hemoglobin Concent 34, Red Cell Distribution Width 14.2, Platelet Count 395, Mean Platelet Volume 10.5H, Neutrophils (%) (Auto) 64, Lymphocytes (%) (Auto) 21, Monocytes (%) (Auto) 11, Eosinophils (%) (Auto) 3, Basophils (%) (Auto) 1, Neutrophils # (Auto) 6.9, Lymphocytes # (Auto) 2.3, Monocytes # (Auto) 1.2H, Eosinophils # (Auto) 0.3, Basophils # (Auto) 0.1, Sodium Level 131L, Potassium Level 5.1H, Chloride Level 94L, Carbon Dioxide Level 26, Anion Gap 11, Blood Urea Nitrogen 14, Creatinine 0.81, Estimat Glomerular Filtration Rate > 60, BUN/Creatinine Ratio 17, Glucose Level 155H, Calcium Level 9.9, Corrected Calcium 9.8, Total Bilirubin 0.3, Aspartate Amino Transf (AST/SGOT) 16, Alanine Aminotransferase (ALT/SGPT) 17, Alkaline Phosphatase 81, Total Protein 6.8, Albumin 4.1 10/22/19 10:52: Glucometer 178H 10/22/19 16:22: Glucometer 184H 10/22/19 20:21: Glucometer 188H 10/23/19 05:34: Glucometer 143H 10/23/19 10:49: Glucometer 189H 10/23/19 16:11: Glucometer 152H 10/23/19 20:20: Glucometer 208H 10/24/19 06:09: Glucometer 142H 10/24/19 11:04: Glucometer 176H 10/24/19 15:41: Glucometer 207H 10/24/19 20:34: Glucometer 195H 10/25/19 05:16: Glucometer 139H 10/25/19 10:50: Glucometer 183H 10/25/19 15:37: Glucometer 140H 10/25/19 20:31: Glucometer 189H 10/26/19 05:42: Glucometer 129H 10/26/19 11:00: Glucometer 183H Pending Labs Laboratory Tests 10/09/19 17:01: Glucometer 188 10/10/19 05:33: White Blood Count 13.4, Red Blood Count 4.65, Hemoglobin 13.7, Hematocrit 41, Mean Corpuscular Volume 88, Mean Corpuscular Hemoglobin 30, Mean Corpuscular Hemoglobin Concent 34, Red Cell Distribution Width 14.5, Platelet Count 346, Mean Platelet Volume 10.5, Neutrophils (%) (Auto) 74, Lymphocytes (%) (Auto) 16, Monocytes (%) (Auto) 8, Eosinophils (%) (Auto) 2, Basophils (%) (Auto) 0, Neutrophils # (Auto) 9.9, Lymphocytes # (Auto) 2.2, Monocytes # (Auto) 1.1, Eosinophils # (Auto) 0.2, Basophils # (Auto) 0.1, Sodium Level 128, Potassium Level 4.3, Chloride Level 92, Carbon Dioxide Level 24, Anion Gap 12, Blood Urea Nitrogen 9, Creatinine 0.70, Estimat Glomerular Filtration Rate > 60, BUN/Creatinine Ratio 13, Glucose Level 176, Calcium Level 9.1, Corrected Calcium 9.1, Total Bilirubin 0.4, Aspartate Amino Transf (AST/SGOT) 24, Alanine Aminotransferase (ALT/SGPT) 18, Alkaline Phosphatase 79, Total Protein 6.5, Albumin 4.0 10/10/19 12:01: Glucometer 151 10/10/19 16:04: Glucometer 149 10/10/19 20:18: Glucometer 177 10/11/19 05:36: Glucometer 155 10/11/19 11:33: Glucometer 184 10/11/19 15:44: Glucometer 155 10/11/19 20:26: Glucometer 156 10/12/19 05:52: Glucometer 152 10/12/19 13:04: Glucometer 169 10/12/19 16:35: Glucometer 127 10/12/19 20:34: Glucometer 203 10/13/19 05:03: Glucometer 153 10/13/19 11:08: Glucometer 145 10/13/19 16:14: Glucometer 197 10/13/19 20:34: Glucometer 152 10/14/19 05:54: Glucometer 145 10/14/19 10:49: Glucometer 204 10/14/19 16:02: Glucometer 171 10/14/19 20:22: Glucometer 197 10/15/19 06:24: White Blood Count 11.0, Red Blood Count 4.91, Hemoglobin 14.5, Hematocrit 44, Mean Corpuscular Volume 89, Mean Corpuscular Hemoglobin 30, Mean Corpuscular Hemoglobin Concent 33, Red Cell Distribution Width 14.4, Platelet Count 383, Mean Platelet Volume 10.8, Neutrophils (%) (Auto) 65, Lymphocytes (%) (Auto) 21, Monocytes (%) (Auto) 11, Eosinophils (%) (Auto) 3, Basophils (%) (Auto) 1, Neutrophils # (Auto) 7.1, Lymphocytes # (Auto) 2.3, Monocytes # (Auto) 1.2, Eosinophils # (Auto) 0.3, Basophils # (Auto) 0.1, Sodium Level 130, Potassium Level 4.7, Chloride Level 93, Carbon Dioxide Level 27, Anion Gap 10, Blood Urea Nitrogen 11, Creatinine 0.72, Estimat Glomerular Filtration Rate > 60, BUN/C reatinine Ratio 15, Glucose Level 137, Calcium Level 9.4, Corrected Calcium 9.3, Total Bilirubin 0.3, Aspartate Amino Transf (AST/SGOT) 19, Alanine Aminotransferase (ALT/SGPT) 19, Alkaline Phosphatase 89, Total Protein 7.1, Albumin 4.1 10/15/19 07:30: Glucometer 163 10/15/19 11:05: Glucometer 159 10/15/19 15:57: Glucometer 179 10/15/19 20:26: Glucometer 195 10/16/19 06:02: Glucometer 148 10/16/19 10:51: Glucometer 169 10/16/19 15:43: Glucometer 183 10/16/19 20:22: Glucometer 215 10/17/19 05:14: Glucometer 156 10/17/19 11:01: Glucometer 153 10/17/19 15:29: Glucometer 173 10/17/19 20:10: Glucometer 186 10/18/19 05:19: Glucometer 156 10/18/19 05:57: Sodium Level 130, Potassium Level 4.7, Chloride Level 94, Carbon Dioxide Level 24, Anion Gap 12, Blood Urea Nitrogen 14, Creatinine 0.72, Estimat Glomerular Filtration Rate > 60, BUN/Creatinine Ratio 19, Glucose Level 154, Calcium Level 9.3, Corrected Calcium 9.3, Total Bilirubin 0.3, Aspartate Amino Transf (AST/SGOT) 18, Alanine Aminotransferase (ALT/SGPT) 20, Alkaline Phosphatase 75, Total Protein 7.0, Albumin 4.0 10/18/19 06:06: White Blood Count 9.5, Red Blood Count 4.67, Hemoglobin 14.0, Hematocrit 41, Mean Corpuscular Volume 89, Mean Corpuscular Hemoglobin 30, Mean Corpuscular Hemoglobin Concent 34, Red Cell Distribution Width 14.2, Platelet Count 390, Mean Platelet Volume 10.4, Neutrophils (%) (Auto) 66, Lymphocytes (%) (Auto) 22, Monocytes (%) (Auto) 9, Eosinophils (%) (Auto) 3, Basophils (%) (Auto) 1, Neutrophils # (Auto) 6.2, Lymphocytes # (Auto) 2.0, Monocytes # (Auto) 0.9, Eosinophils # (Auto) 0.2, Basophils # (Auto) 0.1 10/18/19 10:59: Glucometer 189 10/18/19 15:55: Glucometer 183 10/18/19 20:49: Glucometer 164 10/19/19 05:31: Glucometer 155 10/19/19 10:57: Glucometer 168 10/19/19 16:11: Glucometer 151 10/19/19 20:34: Glucometer 228 10/20/19 05:16: Glucometer 172 10/20/19 11:04: Glucometer 152 10/20/19 16:10: Glucometer 196 10/20/19 20:11: Glucometer 155 10/21/19 05:00: Glucometer 151 10/21/19 10:35: Glucometer 172 10/21/19 15:55: Glucometer 205 10/21/19 20:12: Glucometer 166 10/22/19 04:33: Glucometer 151 10/22/19 05:15: White Blood Count 10.8, Red Blood Count 4.78, Hemoglobin 14.1, Hematocrit 42, Mean Corpuscular Volume 88, Mean Corpuscular Hemoglobin 30, Mean Corpuscular Hemoglobin Concent 34, Red Cell Distribution Width 14.2, Platelet Count 395, Mean Platelet Volume 10.5, Neutrophils (%) (Auto) 64, Lymphocytes (%) (Auto) 21, Monocytes (%) (Auto) 11, Eosinophils (%) (Auto) 3, Basophils (%) (Auto) 1, Neutrophils # (Auto) 6.9, Lymphocytes # (Auto) 2.3, Monocytes # (Auto) 1.2, Eos inophils # (Auto) 0.3, Basophils # (Auto) 0.1, Sodium Level 131, Potassium Level 5.1, Chloride Level 94, Carbon Dioxide Level 26, Anion Gap 11, Blood Urea Nitrogen 14, Creatinine 0.81, Estimat Glomerular Filtration Rate > 60, BUN/Creatinine Ratio 17, Glucose Level 155, Calcium Level 9.9, Corrected Calcium 9.8, Total Bilirubin 0.3, Aspartate Amino Transf (AST/SGOT) 16, Alanine Amino transferase (ALT/SGPT) 17, Alkaline Phosphatase 81, Total Protein 6.8, Albumin 4.1 10/22/19 10:52: Glucometer 178 10/22/19 16:22: Glucometer 184 10/22/19 20:21: Glucometer 188 10/23/19 05:34: Glucometer 143 10/23/19 10:49: Glucometer 189 10/23/19 16:11: Glucometer 152 10/23/19 20:20: Glucometer 208 10/24/19 06:09: Glucometer 142 10/24/19 11:04: Glucometer 176 10/24/19 15:41: Glucometer 207 10/24/19 20:34: Glucometer 195 10/25/19 05:16: Glucometer 139 10/25/19 10:50: Glucometer 183 10/25/19 15:37: Glucometer 140 10/25/19 20:31: Glucometer 189 10/26/19 05:42: Glucometer 129 10/26/19 11:00: Glucometer 183 Discharge Home Medications: Active Scripts Active Pantoprazole Sodium 40 Mg Tablet.dr 40 Mg PO DAILY Clopidogrel (Clopidogrel Bisulfate) 75 Mg Tablet 75 Mg PO DAILY Iprat-Albut 0.5-3(2.5) mg/3 ml (Ipratropium/Albuterol Sulfate) 3 Ml Ampul.neb 3 Ml INH RTBID 30 Days Reported Ibuprofen 200 Mg Tablet 400 Mg PO Q6H PRN Aspirin EC (Aspirin) 81 Mg Tablet.dr 81 Mg PO HS Vitamin D3 (Cholecalciferol (Vitamin D3)) 25 Mcg Capsule 25 Mcg PO TID Fish Oil 1,000 mg Capsule (Celina 3 Polyunsat Fatty Acids) 1,000 Mg Cap 1,000 Mg PO DAILY Multivitamins (Multivitamin) 1 Each Tablet 1 Tab PO HS Pioglitazone HCl 30 Mg Tablet 30 Mg PO DAILY LAST FILLED 08-03-2019 #30/30 DAY SUPPLY Hydrochlorothiazide 25 Mg Tablet 25 Mg PO DAILY Proventil Hfa (Albuterol Sulfate) 6.7 Gm Hfa.aer.ad 2 Puff INH Q6H PRN Celexa (Citalopram Hydrobromide) 40 Mg Tablet 40 Mg PO DAILY Levothyroxine Sodium 175 Mcg Tablet 175 Mcg PO DAILY Lisinopril 40 Mg Tablet 40 Mg PO DAILY Instructions to patient/family Please see electronic discharge instructions given to patient. Diagnosis/Problems Diagnosis/Problems (1) CVA (cerebral vascular accident) (2) Left-sided weakness (3) Tobacco abuse Status: Chronic (4) Stroke Status: Acute (5) DVT prophylaxis Status: Acute (6) COPD (chronic obstructive pulmonary disease) (7) Diabetes (8) Hyperlipemia (9) Hypertension (10) Leukocytosis Status: Acute (11) Hyponatremia Status: Acute (12) Smoker Clinical Quality Measures DVT/VTE Risk/Contraindication: Risk Factor Score Per Nursin RFS Level Per Nursing on Admit: 4+=Very High SUNNY ANDERSON DO Oct 26, 2019 10:54
--- NOTE | 2019-10-26 11:12 | Physical Therapy Daily Note ---
PT Daily Note-Current Subjective Pt in chair, agreeable. Pt anxious about uncertainty of discharge. Mental Status Patient Orientation: Person, Place, Time, Situation Transfers SCALE: Activities may be completed with or without assistive devices. 9-Wkruwczqsd-vfgggdx completes the activity by him/herself with no assistance from a helper. 5-Set-up or Clean-up Assistance-helper sets up or cleans up; patient completes activity. [place] assists only prior to or following the activity. 4-Supervision or Touching Assistance-helper provides verbal cues and/or touching/steadying and/or contact guard assistance as patient completes activity. Assistance may be provided throughout the activity or intermittently. 3-Partial/Moderate Assistance-helper does LESS THAN HALF the effort. [place] lifts, holds or supports trunk or limbs, but provides less than half the effort. 2-Substantial/Maximal Assistance-helper does MORE THAN HALF the effort. [place] lifts or holds trunk or limbs and provides more than half the effort. 8-Ilxxwmkaq-cmrbud does ALL the effort. Patient does none of the effort to complete the activity. Or, the assistance of 2 or more helpers is required for the patient to complete the activity. If activity was not attempted, code reason: 7-Patient Refused. 9-Not Applicable-not attempted and the patient did not perform the activity before the current illness, exacerbation or injury. 10-Not Attempted due to Environmental Limitations-(lack of equipment, weather restraints, etc.). 88-Not Attempted due to Medical Conditions or Safety Concerns. Sit to Stand (QC): 5 Chair/Zas-by-Edwsn Xfer(QC): 5 Weight Bearing Right Lower Extremity: Right Full Weight Bearing Left Lower Extremity: Left Full Weight Bearing Gait Training Does the Patient Walk?: Yes Distance: 150 Walk 10 feet (QC): 4 Walk 50 ft with 2 Turns(QC): 4 Walk 150 ft (QC): 4 Gait Persons Needed: 1 Gait Assistive Device: FWW Pt ambulates with slow, shuffling gait, CGA-close SBA for safety. Impulsive when approaching chairs. Exercises Seated Therapy Exercises: Ankle pumps, Long arc quads, Hip flexion, Hamstring Curls, Hip abd/add Seated Reps: 20 NuStep Minutes: 15 NuStep Workload: 4 Treatments Gait training, LE exercises for functional strengthening, (B) LE integration. Pt returned to recliner with alarm activated, needs met. Assessment Current Status: Good Progress Pt tolerated well. Continued decreased safety awareness, mildly impulsive. PT Family Partner Goals Nursing Home Goals PT Nursing Home Goals Time Frame: Oct 30, 2019 Roll Left & Right (QC): 6 Sit to Lying (QC): 6 Lying-Sitting on Side/Bed(QC): 6 Sit to Stand (QC): 6 Chair/Ied-zr-Vsfsv Xfer(QC): 6 Toilet Transfer (QC): 6 Car Transfer (QC): 6 Does the Patient Walk: Yes Walk 10 feet (QC): 6 Walk 50ft with 2 Turns (QC): 6 Walk 150 ft (QC): 6 Walking 10ft on Uneven Surface: 6 1 Step (curb) (QC): 6 4 Steps (QC): 6 12 Steps (QC): 6 Picking up an Object (QC): 6 Does the Pt use WC or Scooter?: No Wheel 50 feet with 2 turns (QC: 09 Wheel 150 feet: 09 PT Plan Problem List Problem List: Activity Tolerance, Functional Strength, Safety, Balance, Gait, Transfer, Bed Mobility Treatment/Plan Treatment Plan: Continue Plan of Care Treatment Plan: Bed Mobility, Concurrent Therapy, Education, Functional Activity Marjorie, Functional Strength, Group Therapy, Gait, Safety, Therapeutic Exercise, Transfers Treatment Duration: Oct 30, 2019 Frequency: 6 times per week Estimated Hrs Per Day: 1.5 hours per day Patient and/or Family Agrees t: Yes Discharge Recommendations Therapy Discharge Recommendati: Post Acute PT Time/GCodes Time In: 15 Time Out: 1015 Total Billed Treatment Time: 60 Total Billed Treatment 1, GT x 30', Ex x 30' ANASTASIIA MARCH DPTalia Oct 26, 2019 11:12
--- NOTE | 2019-10-26 11:25 | Therapy Team Discharge Summary ---
Therapy Discharge Summary Discharge Recommendations Date of Discharge Occupational Therapy Pt admits ARU with CVA dx. L UE/ LE affected. Upon admission, pt was max A toilet hygiene and mod A showering and dressing tasks. Pt and OT work towards higher functional IND through ADL tasks, UE strengthening/ manipulation/ coordination/ endurance training, safety awareness, balance, and AE training. Pt limited by LUE pain at times and impulsivity. Pt d/c without reaching all LTGs, but makes improvements in all ADL QC areas, d/c'ing with IND UB dressing, CGA LB dressing, IND toilet hygiene and CGA all transfers with cues for safety. Pt to d/c to SNF facility with continued OT recommended. Pt d/c ARU OT at this time. Decreased Activ Tolerance, Decreased Safety Aware, Decreased UE Strength, Dependent Transfers, Impaired Coordination, Impaired Funct Balance, Impaired I ADL's, Impaired Self-Care Skills PT [facility] Goals [facility] Goals PT Occupational Therapist'S Assistant Goals Time Frame: Oct 30, 2019 Roll Left to Right (QC): 6 Sit to Lying (QC): 6 Lying-Sitting on Side/Bed(QC): 6 Sit to Stand (QC): 6 Chair/Ulg-fn-Ezigj Xfer(QC): 6 Car Transfer (QC): 6 Does the Patient Walk: Yes Walk 10 feet (QC): 6 Walk 10ft-Uneven Surface(QC): 6 Walk 50ft with 2 Turns (QC): 6 Walk 150 ft (QC): 6 Does the Pt use WC or Scooter?: No Wheel 50 feet with 2 turns (QC: 09 1 Step (curb) (QC): 6 4 Steps (QC): 6 12 Steps (QC): 6 Picking up an Object (QC): 6 OT [facility] Goals Occupational Therapist'S Assistant Goals Time Frame: Oct 30, 2019 Eating (QC): 6 (met) Oral Hygiene (QC): 6 (met) Shower/Bathe Self (QC): 5 Upper Body Dressing (QC): 6 (met) Lower Body Dressing (QC): 5 On/Off Footwear (QC): 5 (met) Toileting Hygiene (QC): 5 (met) Toilet/Commode Transfer (QC): 6 Additional Goals: 1-Demonstrate ADL Tasks, 2-Verbalize Understanding, 3- ImproveStrength/Marjorie 1=Demonstrate adherence to instructed precautions during ADL tasks. 2=Patient will verbalize/demonstrate understanding of assistive devices/modifications for ADL. 3=Patient will improve strength/tolerance for activity to enable patient to perform ADL's. Speech [facility] Goals Occupational Therapist'S Assistant Goals Patient will improve cognitive-communication necessary for safety and daily living tasks with minimal assist. BARRY BYERS OTR Oct 26, 2019 11:25
--- NOTE | 2019-10-26 12:54 | NUR ---
CM/SS DISCHARGE Patient was discharged to new non-skilled placement with [facility] via their transport at 1300. Patient is newly insured with Medicaid, she does not have Medicare and, therefore, no skilled benefits. CARE Assessment will be completed by [facility] if necessary, suspended requirement for hospitals because of Covid19. [facility] COVID19 PAC Facility Transfer form provided to [facility] per protocols. Family and patient informed throughout process regarding timelines. Goal remains for patient to graduate to an assisted living environment. CLARENCE/Donna at [facility] plans to assist patient with exploration of Medicare benefits and application re same. Unit RN updated intermittently re timelines.
--- NOTE | 2019-10-26 13:18 | NUR ---
Ns report called to ASH Lemos, at [facility], [place], [place]
[2019-10-26 13:30] VITALS: BP 132/78
--- NOTE | 2019-10-26 13:34 | Speech Therapy Daily Note ---
Speech Daily Progress Note Subjective Date Seen by Provider: Oct 26, 2019 Time Seen by Provider: 00:30 Patient states she hopes to be discharged today. Objective Patient completed a series of safety situation cards with 95% given no cuing. Assessment Assessment Current Status: Good Progress Treatment Plan Discontinue ST, Goals Met Speech Short Term Goals Short Term Goals Short Term Goals 1) Patient will complete memory tasks related to daily needs at 90% or greater with minimal cues. 2) Patient will complete safety awareness tasks related to daily needs at 90% or greater with minimal cues. 3) Patient will complete problem solving tasks related to daily needs at 90% or greater with minimal cues. Speech Full Stack Java Developer Goals Full Stack Java Developer Goals Patient will improve cognitive-communication necessary for safety and daily living tasks with minimal assist. Speech-Plan Patient/Family Goals Patient/Family Goals: Patient is discharging to a SNF this afternoon. This news was delivered during our session. Treatment Plan Speech Therapy Treatment Plan: Discontinue ST, Goals Met Treatment Duration: Oct 26, 2019 Frequency: 5 times per week Estimated Hrs Per Day: .5 hour per day Rehab Potential: Fair Barriers to Learning: Patient's recent CVA, however her speech/language deficits are resolved Pt/Family Agrees to Plan: Yes Safety Risks/Education Teaching Recipient: Patient Teaching Methods: Demonstration, Discussion Response to Teaching: Verbalize Understanding, Return Demonstration Education Topics Provided: Continued safety within her new environment. Time Speech Therapy Time In: 10:30 Speech Therapy Time Out: 11:00 Total Billed Time: 30 Billed Treatment Time [address] Oct 26, 2019 13:34
--- NOTE | 2019-10-26 13:39 | Therapy Team Discharge Summary ---
Therapy Discharge Summary Discharge Recommendations Date of Discharge Occupational Therapy Decreased Activ Tolerance, Decreased Safety Aware, Decreased UE Strength, Dependent Transfers, Impaired Coordination, Impaired Funct Balance, Impaired I ADL's, Impaired Self-Care Skills Speech-Language Pathology Patient was admitted to the ARU s/p CVA. Patient was given the SLUMS with moderate level of deficits. Patient's speech, processing and word finding were difficult. Patient received skilled ST services with patient making good progress and meeting all goals. Patient was discharged to the SNF today. Patient is discharged from ST as well. PT Fdc Goals Skinner Pelts Goals PT Fdc Goals Time Frame: Oct 30, 2019 Roll Left to Right (QC): 6 Sit to Lying (QC): 6 Lying-Sitting on Side/Bed(QC): 6 Sit to Stand (QC): 6 Chair/Jvf-ta-Nfxjf Xfer(QC): 6 Car Transfer (QC): 6 Does the Patient Walk: Yes Walk 10 feet (QC): 6 Walk 10ft-Uneven Surface(QC): 6 Walk 50ft with 2 Turns (QC): 6 Walk 150 ft (QC): 6 Does the Pt use WC or Scooter?: No Wheel 50 feet with 2 turns (QC: 09 1 Step (curb) (QC): 6 4 Steps (QC): 6 12 Steps (QC): 6 Picking up an Object (QC): 6 OT Skinner Pelts Goals Skinner Pelts Goals Time Frame: Oct 30, 2019 Eating (QC): 6 (met) Oral Hygiene (QC): 6 (met) Shower/Bathe Self (QC): 5 Upper Body Dressing (QC): 6 (met) Lower Body Dressing (QC): 5 On/Off Footwear (QC): 5 (met) Toileting Hygiene (QC): 5 (met) Toilet/Commode Transfer (QC): 6 Additional Goals: 1-Demonstrate ADL Tasks, 2-Verbalize Understanding, 3- ImproveStrength/Marjorie 1=Demonstrate adherence to instructed precautions during ADL tasks. 2=Patient will verbalize/demonstrate understanding of assistive mya portillo/modifications for ADL. 3=Patient will improve strength/tolerance for activity to enable patient to perform ADL's. Speech Fdc Goals Fdc Goals Patient will improve cognitive-communication necessary for safety and daily living tasks with minimal assist. JHOANA MUNOZ Oct 26, 2019 13:39
--- NOTE | 2019-10-26 15:15 | Therapy Team Discharge Summary ---
Therapy Discharge Summary Discharge Recommendations Date of Discharge 10/26/2019 Therapy D/C Recommendations: Shelter (TCU/NH) Physical Therapy Pt was seen on ARU for gait and transfer training, functional strengthening, and safe functional mobility training. Pt made good progress towards goals but still requires assist and supervision due to weakness, decreased safety awareness. Pt would benefit from continued PT at discharge destination to continue to improve functional strength and safety with functional mobility. Occupational Therapy Decreased Activ Tolerance, Decreased Safety Aware, Decreased UE Strength, Dependent Transfers, Impaired Coordination, Impaired Funct Balance, Impaired I ADL's, Impaired Self-Care Skills PT Dry Charge Process Attendant Goals Care Home Goals PT Care Home Goals Time Frame: Oct 30, 2019 Roll Left to Right (QC): 6 (Met) Sit to Lying (QC): 6 (Met) Lying-Sitting on Side/Bed(QC): 6 (Met) Sit to Stand (QC): 6 (Not met, requires SBA for safety) Chair/Ztw-xe-Oxxsb Xfer(QC): 6 (Not met, requires SBA for safety) Car Transfer (QC): 6 (Not met, requires SBA for safety) Does the Patient Walk: Yes Gait distance (FIM): 3=150 ft Distance: 150 Walk 10 feet (QC): 6 (Not met-min-CGA for safety with gait) Walk 10ft-Uneven Surface(QC): 6 (Not met-min-CGA for safety with gait) Walk 50ft with 2 Turns (QC): 6 (Not met-min-CGA for safety with gait) Walk 150 ft (QC): 6 (Not met-min-CGA for safety with gait) Gait Level of Assist: 4 Gait Assistive Device: FWW Does the Pt use WC or Scooter?: No Wheelchair distance (FIM): 1=up to 49 ft Distance: 50 Wheel 50 feet with 2 turns (QC: 09 1 Step (curb) (QC): 6 (88-Not attempted as Pt was unable to safely place (L) foot onto step) 4 Steps (QC): 6 (88-Not attempted as Pt was unable to safely place (L) foot onto step) 12 Steps (QC): 6 (88-Not attempted as Pt was unable to safely place (L) foot onto step) Picking up an Object (QC): 6 (9--Pt will ue a music adapter at home) OT Dry Charge Process Attendant Goals Care Home Goals Time Frame: Oct 30, 2019 Eating (QC): 6 (met) Oral Hygiene (QC): 6 (met) Shower/Bathe Self (QC): 5 Upper Body Dressing (QC): 6 (met) Lower Body Dressing (QC): 5 On/Off Footwear (QC): 5 (met) Toileting Hygiene (QC): 5 (met) Toilet/Commode Transfer (QC): 6 Additional Goals: 1-Demonstrate ADL Tasks, 2-Verbalize Understanding, 3-Im proveStrength/Marjorie 1=Demonstrate adherence to instructed precautions during ADL tasks. 2=Patient will verbalize/demonstrate understanding of assistive devices/modifications for ADL. 3=Patient will improve strength/tolerance for activity to enable patient to perform ADL's. Speech Dry Charge Process Attendant Goals Care Home Goals Patient will improve cognitive-communication necessary for safety and daily living tasks with minimal assist. ANASTASIIA MARCH DPT Oct 26, 2019 15:15
== END 2019-10-26 13:30 | DRG 57 ==
PROVIDERS: ADMIT Internal Medicine; ATTEND Internal Medicine
DX: I69.354 Hemiplegia and hemiparesis following cerebral infarction affecting left non-dominant side (principal); R41.89 Other symptoms and signs involving cognitive functions and awareness; I65.02 Occlusion and stenosis of left vertebral artery; E87.1 Hypo-osmolality and hyponatremia; I10 Essential (primary) hypertension; J44.9 Chronic obstructive pulmonary disease, unspecified; F17.210 Nicotine dependence, cigarettes, uncomplicated; K57.90 Diverticulosis of intestine, part unspecified, without perforation or abscess without bleeding; M19.91 Primary osteoarthritis, unspecified site; E03.9 Hypothyroidism, unspecified; E11.9 Type 2 diabetes mellitus without complications; F41.9 Anxiety disorder, unspecified; F32.9 Major depressive disorder, single episode, unspecified; K59.00 Constipation, unspecified; R11.10 Vomiting, unspecified; Z85.42 Personal history of malignant neoplasm of other parts of uterus; Z90.710 Acquired absence of both cervix and uterus; Z90.722 Acquired absence of ovaries, bilateral; Z90.89 Acquired absence of other organs; E78.5 Hyperlipidemia, unspecified
CPT/HCPCS: 36415; 80053; 82962; 85025; 94640; 94760

== ENCOUNTER 2020-12-12 08:02 | Outpatient (CLI) | payer MEDICAID, MEDICARE ==
[~2020-12-12] VITALS: Ht 165.1 cm; Wt 103.0 kg
[2020-12-12] VITALS (7 sets, daily range): BP systolic 112–137; BP diastolic 68–80
[~2020-12-12 08:02] MED LIST changes: +ASPI-1238 PO; -ASPI-983 PO; +IPRA3AMP31 INH; +LISI40TA9 PO; +MULT-567 PO; -MULT1TAB69 PO; +PANT40TA52 PO
[2020-12-12 08:56] LABS: RETICULOCYTE % 1.8 % (0.50-2.40)
[2020-12-12] MEDS ORDERED: NS IV 500 ML 500 ML IV SCH (09:00)
[2020-12-12] MEDS ORDERED: NS IV 500 ML 500 ML IV ONE (09:00)
== END 2020-12-12 15:07 ==
LOC: SDC 08:02
PROVIDERS: ATTEND Nurse Practitioner Community Health
DX: D50.9 Iron deficiency anemia, unspecified (principal)
CPT/HCPCS: 36415; 36430; 82607; 82728; 82746; 83540; 83550; 85018; 85045; 86850; 86900; 86901; 86920

== ENCOUNTER 2021-08-20 07:08 | Emergency (ER) | payer MEDICAID ==
[~2021-08-20] VITALS: Ht 157 cm; Wt 104.0 kg
[2021-08-20 07:08] VITALS: BP 137/78
[2021-08-20] MEDS ORDERED: RT-ALBUTEROL HFA 8.5 GM INHALER IH STA (07:16)
--- NOTE | 2021-08-20 07:19 | ED Upper Extremity ---
General Chief Complaint: Trauma-Non Activation Stated Complaint: WRIST PAIN Nursing Triage Note: ARRIVED VIA EMS TO ROOM 06. WAS OUT SIDE SMOKING WHEN SHE FELL USING HER WALKER. COMPLAINS OF LEFT WRIST PAIN. Source: patient, EMS Exam Limitations: no limitations History of Present Illness Date Seen by Provider: Aug 20, 2021 Time Seen by Provider: 07:10 Initial Comments This 66-year-old woman presents to the emergency room with complaints of left wrist pain after falling in the driveway this morning. She went outside with her rolling walker in the snow to have a cigarette. She got her hand and wrist tangled up in the walker and then fell. She states it was a nontraumatic fall but she laid facedown in the snow for several minutes before getting help up. She does not know the exact mechanism of the injury to her wrist and hand but believes it was injured by the walker itself. She denies any other notable injury. She is also wheezing from the exertion of getting up and being without her inhaler. She does have asthma and is a smoker. She arrives via EMS. She is not in distress Allergies and Home Medications Allergies Coded Allergies: Luahpnb-Act-Zps Reductase Inhibitor (Verified Allergy, Unknown, 10/09/19) muscle pain meperidine (Verified Allergy, Unknown, 08/16/13) Patient Home Medication List Home Medication List Reviewed: Yes Albuterol Sulfate (Proventil Hfa) 6.7 Gm Hfa.aer.ad, 2 PUFF INH Q6H PRN for SHORTNESS OF BREATH, (Reported) Entered as Reported by: DONNY LOPEZ on 03/23/19 1025 Aspirin (Aspirin EC) 81 Mg Tablet.dr, 81 MG PO HS, (Reported) Entered as Reported by: JW GLOVER on 10/08/19 1509 Cholecalciferol (Vitamin D3) (Vitamin D3) 25 Mcg Capsule, 25 MCG PO TID, (Reported) Entered as Reported by: JW GLOVER on 10/08/19 1509 Citalopram Hydrobromide (Celexa) 40 Mg Tablet, 40 MG PO DAILY, (Reported) Entered as Reported by: DONNY LOPEZ on 03/23/19 1025 Clopidogrel Bisulfate (Clopidogrel) 75 Mg Tablet, 75 MG PO DAILY Prescribed by: SUNNY ANDERSON on 10/26/19 1054 Docusate Sodium (Colace) 100 Mg Capsule, 100 MG PO DAILY Prescribed by: MAI CARNEY on 08/20/21 0948 Hydrochlorothiazide (Hydrochlorothiazide) 25 Mg Tablet, 25 MG PO DAILY, (Reported) Entered as Reported by: DONNY LOPEZ on 03/23/19 1025 Ibuprofen (Ibuprofen) 200 Mg Tablet, 400 MG PO Q6H PRN for PAIN-MILD (1-4), (Reported) Entered as Reported by: JW GLOVER on 10/08/19 1511 Ipratropium/Albuterol Sulfate (Iprat-Albut 0.5-3(2.5) mg/3 ml) 3 Ml Ampul.neb, 3 ML INH RTBID Prescribed by: SUNNY ANDERSON on 10/26/19 1054 Levothyroxine Sodium (Levothyroxine Sodium) 175 Mcg Tablet, 175 MCG PO DAILY, (Reported) Entered as Reported by: DONNY LOPEZ on 03/23/19 1024 Lisinopril (Lisinopril) 40 Mg Tablet, 40 MG PO DAILY, (Reported) Entered as Reported by: DONNY LPOEZ on 03/23/19 1024 Multivitamin (Multivitamins) 1 Each Tablet, 1 TAB PO HS, (Reported) Entered as Reported by: DONNY LOPEZ on 03/23/19 1033 [place] 3 Polyunsat Fatty Acids (Fish Oil 1,000 mg Capsule) 1,000 Mg Cap, 1,000 MG PO DAILY, (Reported) Entered as Reported by: DONNY LOPEZ on 03/23/19 1033 Pantoprazole Sodium (Pantoprazole Sodium) 40 Mg Tablet.dr, 40 MG PO DAILY Prescribed by: SUNNY ANDERSON on 10/26/19 1054 Pioglitazone HCl (Pioglitazone HCl) 30 Mg Tablet, 30 MG PO DAILY, (Reported) Entered as Reported by: DONNY LOPEZ on 03/23/19 1025 Discontinued Medications Hydrocodone/Acetaminophen (Hydrocodone-Acetamin 5-325 mg) 1 Each Tablet, 1 TAB PO Q4H PRN for PAIN-MODERATE (5-7) Discontinued Reason: Prescription changed Prescribed by: MAI CARNEY on 08/20/21 0949 Review of Systems Constitutional: no symptoms reported EENTM: no symptoms reported Respiratory: see HPI Cardiovascular: no symptoms reported Gastrointestinal: no symptoms reported : No Musculoskeletal: see HPI Skin: other (Small abrasion to the dorsum of the left hand) Psychiatric/Neurological: No Symptoms Reported Past Buyrhsu-Mphtwn-Sgbdtt Hx Patient Social History Tobacco Use?: Yes Smoking Status: Current Everyday Smoker Substance use?: No Alcohol Use?: No Immunizations Up To Date Tetanus Booster (TDap): More than 5yrs PED Vaccines UTD: Yes COVID19 Vaccine Regulatory Attorney: UNKNOWN Seasonal Allergies Seasonal Allergies: Yes Past Medical History Surgeries: Yes Abdominal, Section, Ear Surgery, Hysterectomy, Oophorectomy, Tonsille ctomy Respiratory: Yes Asthma, Sleep Apnea, COPD Currently Using CPAP: No Currently Using BIPAP: No Cardiac: Yes Hypertension Neurological: No Stroke, TIA Reproductive Disorders: Yes (UTERINE CANCER) Female Reproductive Disorders: Denies Sexually Transmitted Disease: No HIV/AIDS: No Genitourinary: Yes (BLADDER INFECTION ONCE) Bladder Infection Gastrointestinal: Yes Diverticulosis Musculoskeletal: Yes Arthritis, Back Injury Endocrine: Yes Hypothyroidsim, Diabetes, Non-Insulin dep HEENT: No Loss of Vision: Denies Hearing Impairment: Hard of Hearing Cancer: Yes Uterine Did You Recieve Any Treatments: Yes What Type of Treatment Did You: Surgical Intervention Psychosocial: Yes Anxiety, Depression Integumentary: No (RASH BETWEEN FINGERS ON RIGHT HAND) Blood Disorders: No Adverse Reaction/Blood Tranf: No Family Medical History Cancer 03 MOTHER (LIVER CANCER) Congestive heart failure 03 FATHER Family history: Asthma 03 FATHER 09 BROTHER Family history: Cardiovascular disease 03 FATHER Family history: Thyroid disorder 03 FATHER 09 BROTHER 09 BROTHER 09 BROTHER 09 BROTHER 09 SISTER 09 SISTER 09 SISTER 09 SISTER History of - respiratory disease 03 FATHER (COPD, ASTHMA, EMPHYSEMA) 09 BROTHER 09 BROTHER 09 BROTHER 09 BROTHER 09 SISTER 09 SISTER 09 SISTER 09 SISTER Asthma, Heart Disease, Cancer, COPD, Diabetes Physical Exam Vital Signs Vital Signs - First Documented 08/20/21 07:08 Temp 35.5 Pulse 63 Resp 16 B/P (MAP) 137/78 (97) Pulse Ox 98 O2 Delivery Room Air Capillary Refill : Less Than 3 Seconds Height, Weight, BMI Height: 5'2.00" Weight: 234lbs. 4.0oz. 106.667992jx; 42.00 BMI Method:Stated General Appearance: WD/WN, no apparent distress, obese HEENT: normal ENT inspection Neck: normal inspection Cardiovascular: regular rate, rhythm, no edema, other (Radial pulse in the left wrist not palpable but fingers are warm with brisk capillary refill and intact sensation) Respiratory: no respiratory distress, no accessory muscle use, wheezing Gastrointestinal: non tender, soft Elbow/Forearm: normal inspection, non-tender, no evidence of injury, Left Wrist: Yes bone tenderness, Yes limited ROM, Yes pain Hand: Left (Small abrasion to the dorsum of the hand and minor swelling on the dorsum of the hand), bone tenderness, limited ROM Neurologic/Tendon: normal sensation, normal motor functions, normal tendon functions, responds to pain Neurologic/Psychiatric: fire boss II-XII nml as tested, no motor/sensory deficits, alert, normal mood/affect, oriented x 3 Skin: normal color, warm/dry Progress/Results/Core Measures Results/Orders My Orders Orders - MAI PATEL MD Wrist, Left, 3 Views Or More (08/20/21 07:16) Hand, Left, 3 Views (08/20/21 07:16) Albuterol Inhaler (Albuterol) (08/20/21 07:16) Hydrocodone/Apap 5/325 Tablet (Lortab 5 (08/20/21 07:30) Ondansetron Oral Dissolve Tab (Zofran (08/20/21 09:56) Medications Given in ED Current Medications Medications Dose Ordered Sig/Levi Route Start Time Stop Time Status Last Admin Dose Admin Acetaminophen/ Hydrocodone Bitart 1 ea ONCE ONCE PO 08/20/21 07:30 08/20/21 07:31 DC 08/20/21 07:34 1 EA Vital Signs/I&O 08/20/21 07:08 Temp 35.5 Pulse 63 Resp 16 B/P (MAP) 137/78 (97) Pulse Ox 98 O2 Delivery Room Air Blood Pressure Mean: 97 Progress Progress Note : Progress Note Patient was found to have fractures of the metacarpals 3 through 5 of the left hand. She was placed in a Colles' splint. Hydrocodone was given for pain. Albuterol inhaler was given for wheezing from COPD exacerbation. Case was discussed with Dr. Jeremy Dawn, orthopedist container filler. He is recommending referral to a hand surgeon. Hand surgeons with which I am familiar are not available. I am attempting to help her access a hand surgeon in [place] and referral form was sent to the office of Mei Hood. After patient's departure, I also discovered the [facility] in [place]. I have communicated the contact information for both facilities and accompanying instructions to staff at [facility]. They will try to help her get prompt follow-up. Diagnostic Imaging Diagonstic Imaging: Xray Plain Films/CT/US/NM/MRI: hand Comments Hand x-ray viewed by me and report reviewed. See report below: NAME: [facility]K [facility] REC#: [id number] PT STATUS: REG ER : 1955 PHYSICIAN: MAI PATEL MD ADMIT DATE: 08/20/21/ER Signed Date of Exam:08/20/21 HAND, LEFT, 3 VIEWS INDICATION: Left hand pain, swelling and fall. COMPARISON: None. FINDINGS: 3 views left hand demonstrate displaced fractures of the mid 3rd and 4th metacarpals. There is a slightly displaced fracture of the head of the 5th metacarpal. There is no intra-articular involvement. No foreign body seen. IMPRESSION: 3rd, 4th and 5th metacarpal fractures. Dictated by: Dictated on workstation # [id number] Dict: 08/20/21750 Trans: 08/20/21 [facility] [id number] Interpreted by: YAMEL PITTMAN Electronically signed by: YAMEL PITTMAN 08/20/21 0759 Diagonstic Imaging: Xray Plain Films/CT/US/NM/MRI: other (Left wrist) Comments Left wrist x-ray viewed by me and report reviewed. See report below: NAME: [facility]ECK [facility] REC#: [id number] PT STATUS: REG ER : 1955 PHYSICIAN: MAI PATEL MD ADMIT DATE: 08/20/21/ER Draft Date of Exam:08/20/21 WRIST, LEFT, 3 VIEWS OR MORE Indication: Fall with left wrist pain AP, oblique and lateral views of the left wrist are obtained. There is diffuse osseous demineralization with sclerosis involving the articular surfaces at the 1st carpometacarpal joint. There are mildly displaced oblique fractures involving 3rd through 5th metacarpals. There is significant ulnar minus variation. Several focal lucencies are seen in the distal radial shaft as well as carpal bones. This is likely on the basis of osteoporosis as opposed to pathologic lytic lesions. No other definite acute fracture seen. IMPRESSION: 1. Oblique fractures of the 3rd through 5th metacarpals which will be described in separate hand x-ray report. 2. Osteoarthritis, demineralization and ulnar minus variation without other acute osseous abnormality identified. Dictated on workstation # [id number] Dict: 08/20/21 0739 Trans: 08/20/21 0745 [facility] [id number] Interpreted by: CALISTA POWER MD Departure Impression Primary Impression: Left hand fracture Qualified Codes: S62.92XA - Unspecified fracture of left wrist and hand, initial encounter for closed fracture Additional Impressions: Fall on same level Qualified Codes: W18.30XA - Fall on same level, unspecified, initial encounter COPD exacerbation Disposition: HOME, SELF-CARE Condition: Improved Departure-Patient Inst. Decision time for Depature: 09:42 Referrals: [facility] [place] (PCP/Family) Primary Care Physician JEREMY DAWN MD Patient Instructions: Hand Fracture Add. Discharge Instructions: Rest, elevation, and icing in 20-minute intervals should help with pain and swelling. Please call Dr. Dawn's office to schedule a follow-up appointment. Ultimately, Dr. Dawn would like you to see a hand specialist but those appointments are difficult to obtain. Dr. Patel will send in the initial referral paperwork to the [facility] orthopedic clinic in [place] to refer you to a hand surgeon. Please call the clinic at [phone] tomorrow to start the registration process. Please do not call before August for as the referral paperwork will not be there yet. Use hydrocodone as prescribed to treat the pain. It would be soler to use Colace stool softener daily while using hydrocodone to prevent constipation. Call with questions or concerns. Return to the ER if you have worsening symptoms. Keep the splint on as much as possible to support and protect the fracture. All discharge instructions reviewed with patient and/or family. Voiced understanding. Scripts Hydrocodone/Acetaminophen (Hydrocodone-Acetamin 5-325 mg) 1 Each Tablet 1 TAB PO Q4H PRN for PAIN-MODERATE (5-7), #20 TAB Prov: MAI PATEL MD 08/20/21 Docusate Sodium (Colace) 100 Mg Capsule 100 MG PO DAILY, #30 CAP Prov: MAI PATEL MD 08/20/21 Copy Copies To 1: OLGA DAWN MD Copies To 2: KRYSTAL SUAREZ JOSHUA T MD Aug 20, 2021 07:19
[2021-08-20] MEDS ORDERED: HYDROcodone/APAP 5 MG/325 MG (LORTAB) TAB PO ONE (07:30)
--- NOTE | 2021-08-20 07:47 | Diagnostic Imaging Report ---
Indication: Fall with left wrist pain AP, oblique and lateral views of the left wrist are obtained. There is diffuse osseous demineralization with sclerosis involving the articular surfaces at the 1st carpometacarpal joint. There are mildly displaced oblique fractures involving 3rd through 5th metacarpals. There is significant ulnar minus variation. Several focal lucencies are seen in the distal radial shaft as well as carpal bones. This is likely on the basis of osteoporosis as opposed to pathologic lytic lesions. No other definite acute fracture seen. IMPRESSION: 1. Oblique fractures of the 3rd through 5th metacarpals which will be described in separate hand x-ray report. 2. Osteoarthritis, demineralization and ulnar minus variation without other acute osseous abnormality identified. Dictated by: Dictated on workstation # [id number]
--- NOTE | 2021-08-20 08:00 | Diagnostic Imaging Report ---
INDICATION: Left hand pain, swelling and fall. COMPARISON: None. FINDINGS: 3 views left hand demonstrate displaced fractures of the mid 3rd and 4th metacarpals. There is a slightly displaced fracture of the head of the 5th metacarpal. There is no intra-articular involvement. No foreign body seen. IMPRESSION: 3rd, 4th and 5th metacarpal fractures. Dictated by: Dictated on workstation # [id number]
[2021-08-20] MEDS ORDERED: ACHD5005 PO ×3 (09:48→13:42)
[2021-08-20] MEDS ORDERED: DOCU-143 PO (09:48)
[2021-08-20] MEDS ORDERED: ONDANSETRON 4 MG (ZOFRAN) ORAL DISSOLVE TAB SL STA (09:56)
== END 2021-08-20 10:09 | disposition home or self-care (01) ==
LOC: ER 07:08
DX: S62.323A Displaced fracture of shaft of third metacarpal bone, left hand, initial encounter for closed fracture (principal); S62.325A Displaced fracture of shaft of fourth metacarpal bone, left hand, initial encounter for closed fracture; S62.327A Displaced fracture of shaft of fifth metacarpal bone, left hand, initial encounter for closed fracture; J44.1 Chronic obstructive pulmonary disease with (acute) exacerbation; G47.30 Sleep apnea, unspecified; I10 Essential (primary) hypertension; F41.9 Anxiety disorder, unspecified; F32.9 Major depressive disorder, single episode, unspecified; E11.9 Type 2 diabetes mellitus without complications; E03.9 Hypothyroidism, unspecified; F17.290 Nicotine dependence, other tobacco product, uncomplicated; Z86.73 Personal history of transient ischemic attack (TIA), and cerebral infarction without residual deficits; Z79.82 Long term (current) use of aspirin; Z79.899 Other long term (current) drug therapy; Z79.890 Hormone replacement therapy; Z79.01 Long term (current) use of anticoagulants; W18.30XA Fall on same level, unspecified, initial encounter
CPT/HCPCS: 73110; 73130

== ENCOUNTER → 2021-09-18 | Outpatient (CLI) | payer MEDICAID ==
[~2021-09-18] VITALS: Ht 157 cm; Wt 109.0 kg
[~2021-09-18] MED LIST changes: +ACHD5005 PO; +CATHETER FLUSH 10 ML SYR IVP PRN; +DOCU-143 PO; +REGADENOSON 0.4 MG/5 ML SYR (LEXISCAN) IV ONE
[2021-09-18 09:49] VITALS: BP 165/87
--- NOTE | 2021-09-20 14:35 | STRESS TEST ---
DATE OF SERVICE: RESTING AND POST REGADENOSON TECHNETIUM-99M TETROFOSMIN SPECT CT IMAGING ORDERING PHYSICIAN: Dr. Diaz. PRIMARY PHYSICIAN: [facility]. CLINICAL DIAGNOSIS: Shortness of breath. Baseline images were carried out after injection of 10.25 mCi of technetium-99m Tetrofosmin. This was followed by 0.4 mg regadenoson and 29.6 mCi of technetium-99m Tetrofosmin for stress imaging. The electrocardiogram showed sinus rhythm at baseline. It did not change significantly with the regadenoson infusion. The patient noted shortness of breath and nausea following regadenoson infusion, which resolved in a few minutes. Review of images at rest and following stress does not indicate any significant perfusion defects consistent with myocardial ischemia or infarction. Gated images show normal global left ventricular systolic function with normal regional wall motion. Left ventricular ejection fraction is calculated to be 76%. CONCLUSIONS: 1. No evidence of any significant myocardial ischemia or infarction is seen. 2. Normal regional wall motion. 3. Normal global left ventricular systolic function with a calculated ejection fraction of 76%. Job ID: [id number] DocumentID: [id number] Dictated Date: 09/20/2021 14:14:19 Medical Liaison Date: 09/20/2021 14:34:24 Dictated By: OLMAN DIAZ MD, MA, FACP, FACC,
== END ==
LOC: CARD 08:30
PROVIDERS: ATTEND Internal Medicine Cardiovascular Disease
DX: R06.02 Shortness of breath (principal)
CPT/HCPCS: 78452; 93017

== ENCOUNTER → 2021-11-12 | Outpatient (CLI) | payer MEDICARE, MEDICAID ==
[~2021-11-12] MED LIST changes: -CATHETER FLUSH 10 ML SYR IVP PRN; -REGADENOSON 0.4 MG/5 ML SYR (LEXISCAN) IV ONE
--- NOTE | 2021-11-12 15:35 | Diagnostic Imaging Report ---
PROCEDURE: US carotid duplex, bilateral. TECHNIQUE: Multiple real-time grayscale images were obtained over the carotid arteries in various projections, bilaterally. Additional spectral analysis and color Doppler duplex images were also obtained. INDICATION: History of stroke. Followup. COMPARISON: 10/08/2019. FINDINGS: Right carotid circulation: The right common and internal carotid arteries are normal in course and caliber. No hemodynamically significant stenosis is present. Left carotid circulation: The left common and internal carotid arteries are normal in course and caliber. No hemodynamically significant stenosis is present. Flow in the bilateral vertebral arteries is antegrade. IMPRESSION: 1. No sonographic evidence of hemodynamically significant stenosis based on flow velocity criteria. Parameters based on the consensus panel Mendes-Scale and Doppler ultrasound criteria published May 2003, Radiology, Volume 229. DOPPLER (peak systolic velocity M/S Right Left CCA .65 .76 ICA Proximal .33 .51 ICA Mid .35 .52 ICA Distal .55 .59 RATIO .8 .8 ECA .88 1.02 VERT .47 .63 Dictated by: Dictated on workstation # [id number]
== END ==
LOC: RAD 12:30
PROVIDERS: ATTEND Internal Medicine Cardiovascular Disease
DX: Z86.73 Personal history of transient ischemic attack (TIA), and cerebral infarction without residual deficits (principal)
CPT/HCPCS: 93880

== ENCOUNTER → 2023-03-29 | Outpatient (CLI) | payer MEDICARE, MEDICAID | LOC: CARD 10:53 | PROVIDERS: ATTEND Internal Medicine Cardiovascular Disease | DX: R01.1 Cardiac murmur, unspecified (principal) | CPT/HCPCS: 93306 ==

== ENCOUNTER 2023-05-11 10:36 | Emergency (ER) | payer MEDICARE, MEDICAID ==
[~2023-05-11] VITALS: Ht 157.5 cm; Wt 99.7 kg
[2023-05-11 11:02] LABS: BASOPHILS # (AUTO) 0.1 10^3/uL (0.0-0.1); BASOPHILS % (AUTO) 1 % (0-10); EOSINOPHILS # (AUTO) 0.2 10^3/uL (0.0-0.3); EOSINOPHILS % (AUTO) 3 % (0-10); HEMATOCRIT 36 % (35-52); HEMOGLOBIN 12.2 g/dL (11.5-16.0); LYMPHOCYTES # (AUTO) 1.5 10^3/uL (1.0-4.0); LYMPHOCYTES % (AUTO) 20 % (12-44); MEAN CORPUSCULAR HEMOGLOBIN 28 pg (25-34); MEAN CORPUSCULAR HGB CONC 34 g/dL (32-36); MEAN CORPUSCULAR VOLUME 82 fL (80-99); MEAN PLATELET VOLUME 9.3 fL (9.0-12.2); MONOCYTES # (AUTO) 0.7 10^3/uL (0.0-1.0); MONOCYTES % (AUTO) 10 % (0-12); NEUTROPHILS % (AUTO) 66 % (42-75); PLATELET COUNT 499 10^3/uL (130-400); WHITE BLOOD COUNT 7.5 10^3/uL (4.3-11.0)
--- NOTE | 2023-05-11 11:08 | ED General ---
General Stated Complaint: SOB Source of Information: Patient Exam Limitations: No Limitations (JANET JOHNSON) History of Present Illness Date Seen by Provider: May 11, 2023 Time Seen by Provider: 10:46 Initial Comments 67 yr old female is presents to the ER today with a week long history of shortness of breath. She was told yesterday at the [facility] that she had pneumonia, low sodium and "wonky" lab work. She says that she had a chest X-ray yesterday, in which we have the report that was interpreted as minimal CHF, possible mild bronchitis and interstitial pneumonia. She says she has not been started on any antibiotics and was given Advair treatments, which matches up with her paperwork. She says that she had a breathing treatment before she arrived this morning. She said that she is feeling very wheezy and the moment and short of breath. Her lab work from two days prior shows that her sodium is 121, chloride is 85, B/C ration at 11.3, Hemoglobin is 11.9 as she has chronic anemia, RDQ and PLT count both elevated. She has a history of COPD and admits to smoking. She denies any falls, syncope, palpitations, chest pain, abdominal pain, and edema. Timing/Duration: 1 Week Severity: Moderate Associated Systoms: No Chest Pain, No Cough, No Fever/Chills, No Headaches, No Nausea/Vomiting; Shortness of Air; No Syncope; Weakness (JANET JOHNSON) Initial Comments Report was received from Veness[facility] B[facility] regarding this patient and her work-up from a couple of days ago. She had a sodium of 121 and there was some concern about possible fluid overload on her chest x-ray. Patient has COPD and uses 2 L by nasal cannula continuously. Patient has remained functional and ambulatory and believes she has adequate support as a resident at [facility]. (MAI BEDOYA MD) Allergies and Home Medications Allergies Coded Allergies: Pnuwpof-RCK-CgI Reductase Inhibitor (Verified Allergy, Unknown, 10/09/19) muscle pain meperidine (Verified Allergy, Unknown, 08/16/13) Patient Home Medication List Home Medication List Reviewed: Yes (JANET JOHNSON) Albuterol Sulfate (Proventil Hfa) 6.7 Gm Hfa.aer.ad, 2 PUFF INH Q6H PRN for SHORTNESS OF BREATH, (Reported) Entered as Reported by: DONNY LOPEZ on 03/23/19 1025 Aspirin (Aspirin EC) 81 Mg Tablet.dr, 81 MG PO HS, (Reported) Entered as Reported by: JW GLOVER on 10/08/19 1509 Cholecalciferol (Vitamin D3) (Vitamin D3) 25 Mcg Capsule, 25 MCG PO TID, (Reported) Entered as Reported by: JW GLOVER on 10/08/19 1509 Citalopram Hydrobromide (Celexa) 40 Mg Tablet, 40 MG PO DAILY, (Reported) Entered as Reported by: DONNY LOPEZ on 03/23/19 1025 Clopidogrel Bisulfate (Clopidogrel) 75 Mg Tablet, 75 MG PO DAILY Prescribed by: SUNNY ANDERSON on 10/26/19 1054 Docusate Sodium (Colace) 100 Mg Capsule, 100 MG PO DAILY Prescribed by: MAI CARNEY on 08/20/21 0948 Hydrochlorothiazide (Hydrochlorothiazide) 25 Mg Tablet, 25 MG PO DAILY, (Reported) Entered as Reported by: DONNY LOPEZ on 03/23/19 1025 Hydrocodone/Acetaminophen (Hydrocodone-Acetamin 5-325 mg) 1 Each Tablet, 1 TAB PO Q4H PRN for PAIN-MODERATE (5-7) Prescribed by: MAI CARNEY on 08/20/21 1343 Ibuprofen (Ibuprofen) 200 Mg Tablet, 400 MG PO Q6H PRN for PAIN-MILD (1-4), (Reported) Entered as Reported by: JW GLOVER on 10/08/19 1511 Ipratropium/Albuterol Sulfate (Iprat-Albut 0.5-3(2.5) mg/3 ml) 3 Ml Ampul.neb, 3 ML INH RTBID Prescribed by: SUNNY ANDERSON on 10/26/19 1054 Ipratropium/Albuterol Sulfate (Iprat-Albut 0.5-3(2.5) mg/3 ml) 0.5 Mg-3 Mg (2.5 Mg Base)/3 Ml Ampul.neb, 3 ML IH Q6H PRN for SHORTNESS OF BREATH Prescribed by: MAI CARNEY on 05/11/23 1438 Levothyroxine Sodium (Levothyroxine Sodium) 175 Mcg Tablet, 175 MCG PO DAILY, (Reported) Entered as Reported by: DONNY LOPEZ on 03/23/19 1024 Lisinopril (Lisinopril) 40 Mg Tablet, 40 MG PO DAILY, (Reported) Entered as Reported by: DONNY LOPEZ on 03/23/19 1024 Magnesium Oxide (Magnesium Oxide) 400 Mg Tablet, 400 MG PO BID Prescribed by: MAI CARNEY on 05/11/23 1313 Multivitamin (Multivitamins) 1 Each Tablet, 1 TAB PO HS, (Reported) Entered as Reported by: DONNY LOPEZ on 03/23/19 1033 [place] 3 Polyunsat Fatty Acids (Fish Oil 1,000 mg Capsule) 1,000 Mg Cap, 1,000 MG PO DAILY, (Reported) Entered as Reported by: DONNY LOPEZ on 03/23/19 1033 Pantoprazole Sodium (Pantoprazole Sodium) 40 Mg Tablet.dr, 40 MG PO DAILY Prescribed by: SUNNY ANDERSON on 10/26/19 1054 Pioglitazone HCl (Pioglitazone HCl) 30 Mg Tablet, 30 MG PO DAILY, (Reported) Entered as Reported by: DONNY LOPEZ on 03/23/19 1025 Review of Systems Review of Systems Constitutional: No chills, No diaphoresis, No dizziness; weakness EENTM: No eye pain, No vision loss, No dental problems, No nose pain, No throat pain Respiratory: No cough; dyspnea on exertion, orthopnea, short of breath, wheezing Cardiovascular: No chest pain, No edema, No palpitations, No syncope Gastrointestinal: No abdominal pain, No constipation, No diarrhea, No nausea, No vomiting Musculoskeletal: No back pain, No muscle pain (JANET JOHNSON) Past Onmfmxl-Ghsskd-Jzeunr Hx Patient Social History Tobacco Use?: Yes Tobacco type used: Cigarettes Smoking Status: Current Everyday Smoker Use of E-Cig and/or Vaping dev: No Substance use?: No Alcohol Use?: No (JANET JOHNSON) Immunizations Up To Date Tetanus Booster (TDap): More than 5yrs PED Vaccines UTD: Yes (JANET JOHNSON) Seasonal Allergies Seasonal Allergies: Yes (JANET JOHNSON) Past Medical History Surgeries: Yes Abdominal, Section, Ear Surgery, Hysterectomy, Oophorectomy, Tonsillectomy Respiratory: Yes Asthma, Sleep Apnea, COPD Currently Using CPAP: No Currently Using BIPAP: No Cardiac: Yes Hypertension Neurological: No Stroke, TIA Reproductive Disorders: Yes (UTERINE CANCER) Female Reproductive Disorders: Denies Sexually Transmitted Disease: No HIV/AIDS: No Genitourinary: Yes (BLADDER INFECTION ONCE) Bladder Infection Gastrointestinal: Yes Diverticulosis Musculoskeletal: Yes Arthritis, Back Injury Endocrine: Yes Hypothyroidsim, Diabetes, Non-Insulin dep HEENT: No Loss of Vision: Denies Hearing Impairment: Hard of Hearing Cancer: Yes Uterine Did You Recieve Any Treatments: Yes What Type of Treatment Did You: Surgical Intervention Psychosocial: Yes Anxiety, Depression Integumentary: No (RASH BETWEEN FINGERS ON RIGHT HAND) Blood Disorders: No Adverse Reaction/Blood Tranf: No (JANET JOHNSON) Family Medical History Cancer 03 MOTHER (LIVER CANCER) Congestive heart failure 03 FATHER Family history: Asthma 03 FATHER 09 BROTHER Family history: Cardiovascular disease 03 FATHER Family history: Thyroid disorder 03 FATHER 09 BROTHER 09 BROTHER 09 BROTHER 09 BROTHER 09 SISTER 09 SISTER 09 SISTER 09 SISTER History of - respiratory disease 03 FATHER (COPD, ASTHMA, EMPHYSEMA) 09 BROTHER 09 BROTHER 09 BROTHER 09 BROTHER 09 SISTER 09 SISTER 09 SISTER 09 SISTER Asthma, Heart Disease, Cancer, COPD, Diabetes (JANET JOHNSON) Physical Exam Vital Signs Vital Signs - First Documented 05/11/23 10:41 Temp 37.7 Pulse 93 Resp 21 B/P (MAP) 136/84 (101) Pulse Ox 95 O2 Delivery Room Air (MAI BEDOYA MD) Vital Signs Capillary Refill : (JANET JOHNSON) Height, Weight, BMI Height: 5'2.00" Weight: 234lbs. 4.0oz. 106.140206xg; 44.22 BMI Method:Stated General Appearance: Mild Distress, Obese Neck: Non Tender, Supple Respiratory: Chest Non Tender, Crackles, Decreased Breath Sounds, Wheezing Cardiovascular: Regular Rate, Rhythm, No Gallop, No Murmur Gastrointestinal: Normal Bowel Sounds, Non Tender, Soft Extremity: Normal Capillary Refill, Non Tender, No Calf Tenderness, Pedal Edema Neurologic/Psychiatric: Alert, Oriented x3, Normal Mood/Affect (JANET JOHNSON) Progress/Results/Core Measures Suspected Sepsis SIRS Temperature: Pulse: Respiratory Rate: Blood Pressure / Mean: (JANET JOHNSON) Results/Orders Lab Results Laboratory Tests Test 05/11/23 10:55 05/11/23 11:36 Range/Units White Blood Count 7.5 4.3-11.0 10^3/uL Red Blood Count 4.43 3.80-5.11 10^6/uL Hemoglobin 12.2 11.5-16.0 g/dL Hematocrit 36 35-52 % Mean Corpuscular Volume 82 80-99 fL Mean Corpuscular Hemoglobin 28 25-34 pg Mean Corpuscular Hemoglobin Concent 34 32-36 g/dL Red Cell Distribution Width 15.6 H 10.0-14.5 % Platelet Count 499 H 130-400 10^3/uL Mean Platelet Volume 9.3 9.0-12.2 fL Immature Granulocyte % (Auto) 1 % Neutrophils (%) (Auto) 66 42-75 % Lymphocytes (%) (Auto) 20 12-44 % Monocytes (%) (Auto) 10 0-12 % Eosinophils (%) (Auto) 3 0-10 % Basophils (%) (Auto) 1 0-10 % Neutrophils # (Auto) 5.0 1.8-7.8 10^3/uL Lymphocytes # (Auto) 1.5 1.0-4.0 10^3/uL Monocytes # (Auto) 0.7 0.0-1.0 10^3/uL Eosinophils # (Auto) 0.2 0.0-0.3 10^3/uL Basophils # (Auto) 0.1 0.0-0.1 10^3/uL Immature Granulocyte # (Auto) 0.1 0.0-0.1 10^3/uL Sodium Level 122 *L 135-145 MMOL/L Potassium Level 4.2 3.6-5.0 MMOL/L Chloride Level 89 L 98-107 MMOL/L Carbon Dioxide Level 21 21-32 MMOL/L Anion Gap 12 5-14 MMOL/L Blood Urea Nitrogen 7 7-18 MG/DL Creatinine 1.02 0.60-1.30 MG/DL Estimat Glomerular Filtration Rate 60 BUN/Creatinine Ratio 7 Glucose Level 100 70-105 MG/DL Calcium Level 9.3 8.5-10.1 MG/DL Corrected Calcium 9.2 8.5-10.1 MG/DL Magnesium Level 1.4 L 1.6-2.4 MG/DL Total Bilirubin 0.2 0.1-1.0 MG/DL Aspartate Amino Transf (AST/SGOT) 22 5-34 U/L Alanine Aminotransferase (ALT/SGPT) 20 0-55 U/L Alkaline Phosphatase 94 40-136 U/L B-Type Natriuretic Peptide 38.7 <100.0 PG/ML Total Protein 7.2 6.4-8.2 GM/DL Albumin 4.1 3.2-4.5 GM/DL Influenza Type A (RT-PCR) Not Detected Not Detecte Influenza Type B (RT-PCR) Not Detected Not Detecte SARS-CoV-2 RNA (RT-PCR) Not Detected Not Detecte (MAI BEDOYA MD) My Orders Orders - MAI BEDOYA MD Bnp Erica (05/11/23 10:40) Cbc And Automated Diff (05/11/23 10:40) Comprehensive Metabolic Panel (05/11/23 10:40) Magnesium (05/11/23 10:40) Ed Iv/Invasive Line Start (05/11/23 10:40) Chest Pa/Lat (2 View) (05/11/23 10:40) Covid 19 Inhouse Test (05/11/23 11:29) Influenza A And B By Pcr (05/11/23 11:29) Magnesium 1 Gm/100 Ml Ivpb (Magnesium 1 (05/11/23 13:00) Ns Iv 1000 Ml (Ns Iv 1000 Ml) (05/11/23 13:00) Ipratropium/Albuterol Inh Soln (Ipratrop (05/11/23 13:00) Svn Small Volume Nebulizer (05/11/23 12:56) (MAI BEDOYA MD) Medications Given in ED (MAI BEDOYA MD) Vital Signs/I&O 05/11/23 05/11/23 05/11/23 05/11/23 10:41 10:41 13:10 14:40 Temp 37.7 Pulse 93 85 Resp 21 16 B/P (MAP) 136/84 (101) 120/54 Pulse Ox 95 97 100 O2 Delivery Room Air Room Air Room Air (MAI BEDOYA MD) Vital Signs/I&O Capillary Refill : (JANET JOHNSON) Progress Note : Time: 10:46 Progress Note 10:46 - Patient is seen today after a week long history of shortness of breath and wheezing. She was told yesterday she states that she has pneumonia and that her sodium was low. She currently lives and [facility] in [place]. She says she was given Advair for her symptoms and did a breathing treatment this morning before coming to the ED. She says that she feels like she cannot ever get enough air lately. She has a chronic history of COPD and her X-ray read was interpreted yesterday as possible mild bronchitis and interstitial pneumonia. On exam her cardiovascular exam is unremarkable. Her pulmonary exam shows wheezing, congestion and crackles bilaterally. She has no tenderness to the abdomen and has normal bowel sounds. She has no peripheral edema at this time. Plan is to order CBC, CMP, Mag, BNP, and chest PA and Lateral. (JANET JOHNSON) Progress Note : Progress Note Patient was interviewed and examined by me personally along with PA student. Labs were obtained and interpreted by me. CBC revealed an elevation in platelets of 499. CBC was otherwise unremarkable. Chemistry was notable for hyponatremia with sodium of 122. This is stable from her labs from 2 days ago which were also reviewed. Magnesium was 1.4. Chemistry was otherwise unremarkable. BNP was normal at 38.2. Swabs for influenza and COVID-19 were negative. Chest x-ray was obtained and report reviewed as noted below. Patient did not seem to have other signs or symptoms of pneumonia. Chest x-ray findings were discerned to be chronic. Heart failure was ruled out by BNP. Patient is likely experiencing hyponatremia due to her hydrochlorothiazide use. She was advised to discontinue hydrochlorothiazide and have her sodium monitored. Magnesium was replaced with 1 g IV and a prescription for further replacement was provided. I discussed this case with Dr. Escalante. Because the patient feels she is receiving adequate support at assisted living and action can be taken to improve her hyponatremia by stopping hydrochlorothiazide, discharged back to assisted living was deemed appropriate. See discharge instructions for further discussion. (MAI BEDOYA MD) Diagnostic Imaging Diagonstic Imaging: Xray Plain Films/CT/US/NM/MRI: chest Comments NAME: [facility] REC#: [id number] PT STATUS: DEP ER : [id number] PHYSICIAN: MAI BEDOYA MD ADMIT DATE: 05/11/23/ER Signed Date of Exam:05/11/23 CHEST PA/LAT (2 VIEW) INDICATION: SOA, fluid overload. COMPARISON: 10/07/2019. FINDINGS: Frontal and lateral views of the chest demonstrate normal heart size and pulmonary vascularity. Evaluation of the lung delgadillo demonstrates mild diffuse coarse prominence of the interstitium, similar compared to prior exam. There is no new alveolar consolidation, large effusion, nor pneumothorax. IMPRESSION: 1. Background prominence of the interstitium, which may be chronic change when compared to prior exam. Interstitial pneumonia or edema would be within the differential as well. 2. No focal consolidation. Dictated by: Dictated on workstation # [id number] Dict: 05/11/23 1129 Trans: 05/12/23 0807 [id number] Interpreted by: DANIELLE GAMA MD Electronically signed by: DANIELLE GAMA MD 05/12/23 0807 (MAI BEDOYA MD) Departure Impression Primary Impression: Hyponatremia Additional Impressions: Hypomagnesemia COPD exacerbation Disposition: 01 HOME, SELF-CARE Condition: Improved Departure-Patient Inst. Decision time for Depature: 13:05 (MAI BEDOYA MD) Referrals: JW IBRAHIM DO (PCP/Family) Primary Care Physician Patient Instructions: Hyponatremia, Chronic Obstructive Pulmonary Disease (COPD) (DC) Add. Discharge Instructions: STOP hydrochlorothiazide as it may be causing your sodium and magnesium levels to drop. You may lightly salt food to help improve your sodium levels temporarily. Take the magnesium supplement as prescribed. Increase your nebulizer treatments to every 6 hours as needed for shortness of breath and wheezing. Use the DuoNeb (albuterol/ipratropium) instead of just albuterol. If this does not adequately improve your breathing, you may need your primary care provider to start some steroid treatment. If steroids are used, you may need your diabetes management altered. Follow-up with your primary care provider within the next week for repeat lung exam and repeat labs. Return to the ER if you have worsening symptoms despite following these instructions. Scripts Ipratropium/Albuterol Sulfate (Iprat-Albut 0.5-3(2.5) mg/3 ml) 0.5 Mg-3 Mg (2.5 Mg Base)/3 Ml Ampul.neb 3 ML IH Q6H PRN for SHORTNESS OF BREATH, #50 EACH Prov: MAI BEDOYA MD 05/11/23 Magnesium Oxide (Magnesium Oxide) 400 Mg Tablet 400 MG PO BID, #20 TAB Prov: MAI BEDOYA MD 05/11/23 Medical Student Attestation and Attending Note: I have personally interviewed and examined this patient along with FLORI Quiroz-S2. I have reviewed student documentation including history, phys ical, and assessments. I agree with the documentation except where otherwise noted. Exam: General: Alert, oriented, no acute distress, well developed HEENT: Normocephalic and atraumatic Heart: Regular rate and rhythm without murmur Lungs: Decreased breath sounds, mild wheezes, normal effort Abdomen: Soft, nontender, nondistended, normal bowel sounds Neuropsych: Alert, oriented, no focal deficits Skin: Warm and dry without rashes (MAI BEDOYA MD) Copy Copies To 1: [facility]/JANET CORONADO May 11, 2023 11:08 MAI BEDOYA MD May 11, 2023 13:08
[2023-05-11 11:12] LABS: ALBUMIN 4.1 GM/DL (3.2-4.5); POTASSIUM 4.2 MMOL/L (3.6-5.0)
[2023-05-11 11:13] LABS: CALCIUM 9.3 MG/DL (8.5-10.1)
[2023-05-11 11:15] LABS: TOTAL PROTEIN 7.2 GM/DL (6.4-8.2)
[2023-05-11 11:17] LABS: BILIRUBIN,TOTAL 0.2 MG/DL (0.1-1.0)
[2023-05-11 11:18] LABS: CREATININE SERUM 1.02 MG/DL (0.60-1.30)
[2023-05-11 11:21] LABS: MAGNESIUM 1.4 MG/DL (1.6-2.4)
--- NOTE | 2023-05-11 11:43 | Diagnostic Imaging Report ---
INDICATION: SOA, fluid overload. COMPARISON: 10/07/2019. FINDINGS: Frontal and lateral views of the chest demonstrate normal heart size and pulmonary vascularity. Evaluation of the lung delgadillo demonstrates mild diffuse coarse prominence of the interstitium, similar compared to prior exam. There is no new alveolar consolidation, large effusion, nor pneumothorax. IMPRESSION: 1. Background prominence of the interstitium, which may be chronic change when compared to prior exam. Interstitial pneumonia or edema would be within the differential as well. 2. No focal consolidation. Dictated by: Dictated on workstation # [id number]
[2023-05-11] MEDS ORDERED: RT-Ipratropium/Albuterol NEB 3 ML VIAL INH ONE (13:00)
[2023-05-11] MEDS ORDERED: NS IV 1000 ML 1,000 ML IV SCH (13:00)
[2023-05-11] MEDS ORDERED: MAGNESIUM 1 GM/100 ML IVPB 100 ML IV ONE (13:00)
[2023-05-11] MEDS ORDERED: MAGN400T7 PO (13:13)
[2023-05-11] MEDS ORDERED: IPRA3AMP31 IH (14:38)
[2023-05-11 14:40] VITALS: BP 120/54
== END 2023-05-11 14:40 | disposition home or self-care (01) ==
LOC: EDUNIT# 10:36 → ER 10:38
DX: E87.1 Hypo-osmolality and hyponatremia (principal); E83.42 Hypomagnesemia; J44.1 Chronic obstructive pulmonary disease with (acute) exacerbation; E66.9 Obesity, unspecified; F17.210 Nicotine dependence, cigarettes, uncomplicated; Z68.41 Body mass index [BMI] 40.0-44.9, adult
CPT/HCPCS: 36415; 71046; 80053; 83735; 83880; 85025; 87636; 94640

== ENCOUNTER 2023-06-01 18:26 | Observation (INO) | payer MEDICARE, MEDICAID ==
[~2023-06-01] VITALS: Ht 157 cm; Wt 104.5 kg
[~2023-06-01 18:26] MED LIST changes: +IPRA3AMP31 IH; +MAGN400T7 PO
--- NOTE | 2023-06-01 18:39 | ED Chest Pain ---
General Chief Complaint: Chest Wall Stated Complaint: BACK PAIN Nursing Triage Note: ARRIVED VIA EMS FROM [facility] WITH RIGHT SIDED RIB PAIN. PT STATES SHE COUGHED AND IMMEDIATELY HAD PAIN. EMS GAVE FENTENYL 50MCG IN ROUTE Source: patient, EMS, [facility] Exam Limitations: no limitations History of Present Illness Date Seen by Provider: Jun 01, 2023 Time Seen by Provider: 18:28 Initial Comments This is 67-year-old woman presents to the emergency room via EMS from [facility] where she is a resident with primary complaint of pain in the right post erior lower chest. Pain seem to be triggered and exacerbated by cough. The pain is sharp and radiates into the right flank area. She has splinting respirations and is wheezing. She has history of COPD. She reports a constant burning in this area that is exacerbated with moving or deep breathing. The nature of the pain seems to be musculoskeletal with spasms with movement. She received fentanyl 50 mcg by EMS but is still in significant pain. Pain has been intermittent and escalating over the past few days. She describes it as feeling like "kicked in the ribs". Allergies and Home Medications Allergies Coded Allergies: Mdpiukp-UFP-FyG Reductase Inhibitor (Verified Allergy, Unknown, 10/09/19) muscle pain meperidine (Verified Allergy, Unknown, 08/16/13) Patient Home Medication List Home Medication List Reviewed: Yes Acetaminophen (Tylenol Extra Strength) 500 Mg Tablet, 1,000 MG PO Q6H PRN for P AIN-MILD (1-4), (Reported) Entered as Reported by: JW GLOVER on 06/02/23 1455 Last Action: Continued Albuterol Sulfate (Proventil Hfa) 6.7 Gm Hfa.aer.ad, 2 PUFF INH Q6H PRN for SHORTNESS OF BREATH, (Reported) Entered as Reported by: DONNY LOPEZ on 03/23/19 1025 Last Action: Held Ascorbic Acid (Vitamin C) 250 Mg Tab.chew, 500 MG PO DAILY, (Reported) Entered as Reported by: JW GLOVER on 06/02/23 1455 Last Action: Held Aspirin (Aspirin EC) 81 Mg Tablet.dr, 81 MG PO DAILY, (Reported) Entered as Reported by: JW GLOVER on 10/08/19 1509 Last Action: Continued Cholecalciferol (Vitamin D3) (Vitamin D3) 25 Mcg (1000 Unit) Capsule, 25 MCG PO DAILY, (Reported) Entered as Reported by: JW GLOVER on 10/08/19 6159 Last Action: Held Citalopram Hydrobromide (Citalopram HBr) 20 Mg Tablet, 20 MG PO DAILY, (Reported) Entered as Reported by: JW GLOVER on 06/02/231454 Last Action: Continued Clopidogrel Bisulfate (Clopidogrel) 75 Mg Tablet, 75 MG PO DAILY, (Reported) Entered as Reported by: JW GLOVER on 06/02/231454 Last Action: Continued Esomeprazole Magnesium (Esomeprazole Magnesium) 20 Mg Capsule.dr, 40 MG PO DAILY, (Reported) Entered as Reported by: JW GLOVER on 06/02/231454 Last Action: Converted Ferrous Gluconate (Ferrous Gluconate) 240 Mg (27 Mg Iron) Tablet, 240 MG PO DAILY, (Reported) Entered as Reported by: JW GLOVER on 06/02/231454 Last Action: Converted Fluticasone Propion/Salmeterol (Fluticasone-Salmeterol 250-50) 250 Mcg-50 Mcg/Dose Blst.w.dev, 1 PUFF INH BID, (Reported) Entered as Reported by: JW GLOVER on 06/02/231454 Last Action: Converted Hydrochlorothiazide (Hydrochlorothiazide) 25 Mg Tablet, 25 MG PO DAILY, (Reported) Entered as Reported by: DONNY LOPEZ on 03/23/19 1025 Last Action: Continued Hydroxyzine HCl (Hydroxyzine HCl) 25 Mg Tablet, 25 MG PO Q6H PRN for ITCHING, (Reported) Entered as Reported by: JW GLOVER on 06/02/231454 Last Action: Converted Ibuprofen (Ibuprofen) 200 Mg Tablet, 400 MG PO Q6H PRN for PAIN-MILD (1-4), (Reported) Entered as Reported by: JW GLOVER on 10/08/19 1511 Last Action: Continued Ipratropium/Albuterol Sulfate (Iprat-Albut 0.5-3(2.5) mg/3 ml) 0.5 Mg-3 Mg (2.5 Mg Base)/3 Ml Ampul.neb, 3 ML IH Q6H PRN for SHORTNESS OF BREATH, (Reported) Entered as Reported by: JW GLOVER on 06/02/231454 Last Action: Held Levothyroxine Sodium (Levothyroxine Sodium) 137 Mcg Tablet, 137 MCG PO DAILY, ( Reported) Entered as Reported by: JW GLOVER on 06/02/231454 Last Action: Converted Lisinopril (Lisinopril) 40 Mg Tablet, 40 MG PO DAILY, (Reported) Entered as Reported by: DONNY LOPEZ on 03/23/19 1024 Last Action: Continued Loratadine (Loratadine) 10 Mg Tablet, 10 MG PO DAILY, (Reported) Entered as Reported by: JW GLOVER on 06/02/231454 Last Action: Continued Magnesium Citrate and Oxide (Magnesium) 250 Mg Capsule, 250 MG PO DAILY, (Reported) Entered as Reported by: JW GLOVER on 06/02/231454 Last Action: Converted Melatonin (Melatonin) 3 Mg Tablet, 3 MG PO HS PRN for SLEEP, (Reported) Entered as Reported by: JW GLOVER on 06/02/231454 Last Action: Continued Menthol (Menthol) 4 % Cream..g., 1 APPLIC TP Q8H PRN for PAIN-BREAKTHROUGH, (Reported) Entered as Reported by: JW GLOVER on 06/02/231454 Last Action: Converted Metformin HCl (Metformin HCl) 500 Mg Tablet, 500 MG PO BID WITH MEALS, (R eported) Entered as Reported by: JW GLOVER on 06/02/231454 Last Action: Continued Multivitamin (Multivitamins) 1 Each Tablet, 1 TAB PO DAILY, (Reported) Entered as Reported by: DONNY LOPEZ on 03/23/19 1033 Last Action: Continued [place]-3/Dha/Epa/Fish Oil ([place]-3 EC Softgel) 350 Mg-235 Mg-90 Mg-597 Mg Capsule.dr, 2 EACH PO DAILY, (Reported) Entered as Reported by: JW GLOVER on 06/02/231454 Last Action: Held Ondansetron HCl (Ondansetron HCl) 4 Mg Tablet, 4 MG PO Q6H PRN for NAUSEA/VOMITING-1ST LINE, (Reported) Entered as Reported by: JW GLOVER on 06/02/231454 Last Action: Held Pioglitazone HCl (Pioglitazone HCl) 30 Mg Tablet, 30 MG PO DAILY, (Reported) Entered as Reported by: DONNY LOPEZ on 03/23/19 1025 Last Action: Continued Sodium Chloride (Sodium Chloride) 1,000 Mg Tablet.elsi, 1,000 MG PO DAILY, (Repor ana paula) Entered as Reported by: JW GLOVER on 06/02/23 1455 Last Action: Continued Discontinued Medications Citalopram Hydrobromide (Celexa) 40 Mg Tablet, 40 MG PO DAILY, (Reported) Discontinued Reason: No Longer Taking Entered as Reported by: DONNY LOPEZ on 03/23/19 1025 Last Action: Discontinued Clopidogrel Bisulfate (Clopidogrel) 75 Mg Tablet, 75 MG PO DAILY Discontinued Reason: No Longer Taking Prescribed by: SUNNY ANDERSON on 10/26/19 1054 Last Action: Discontinued Docusate Sodium (Colace) 100 Mg Capsule, 100 MG PO DAILY Discontinued Reason: No Longer Taking Prescribed by: MAI CARNEY on 08/20/21 0948 Last Action: Discontinued Hydrocodone/Acetaminophen (Hydrocodone-Acetamin 5-325 mg) 1 Each Tablet, 1 TAB PO Q4H PRN for PAIN-MODERATE (5-7) Discontinued Reason: No Longer Taking Prescribed by: MAI CARNEY on 08/20/21 1343 Last Action: Discontinued Ipratropium/Albuterol Sulfate (Iprat-Albut 0.5-3(2.5) mg/3 ml) 3 Ml Ampul.neb, 3 ML INH RTBID Discontinued Reason: No Longer Taking Prescribed by: SUNNY ANDERSON on 10/26/19 1054 Last Action: Discontinued Ipratropium/Albuterol Sulfate (Iprat-Albut 0.5-3(2.5) mg/3 ml) 0.5 Mg-3 Mg (2.5 Mg Base)/3 Ml Ampul.neb, 3 ML IH Q6H PRN for SHORTNESS OF BREATH Discontinued Reason: No Longer Taking Prescribed by: MAI CARNEY on 05/11/23 1438 Last Action: Discontinued Levothyroxine Sodium (Levothyroxine Sodium) 175 Mcg Tablet, 175 MCG PO DAILY, (Reported) Discontinued Reason: No Longer Taking Entered as Reported by: DONNY LOPEZ on 03/23/19 1024 Last Action: Discontinued Magnesium Oxide (Magnesium Oxide) 400 Mg Tablet, 400 MG PO BID Discontinued Reason: No Longer Taking Prescribed by: MAI CARENY on 05/11/23 1313 Last Action: Discontinued [place] 3 Polyunsat Fatty Acids (Fish Oil 1,000 mg Capsule) 1,000 Mg Cap, 1,000 MG PO DAILY, (Reported) Discontinued Reason: Prescription changed Entered as Reported by: DONNY LOPEZ on 03/23/19 1033 Pantoprazole Sodium (Pantoprazole Sodium) 40 Mg Tablet.dr, 40 MG PO DAILY Discontinued Reason: No Longer Taking Prescribed by: SUNNY ANDERSON on 10/26/19 1054 Last Action: Discontinued Review of Systems Review of Systems Constitutional: no symptoms reported EENTM: No Symptoms Reported Respiratory: See HPI Cardiovascular: No Symptoms Reported Gastrointestinal: No Symptoms Reported Genitourinary: No Symptoms Reported Musculoskeletal: see HPI Skin: no symptoms reported Psychiatric/Neurological: No Symptoms Reported Endocrine: No Symptoms Reported Hematologic/Lymphatic: No Symptoms Reported Past Tnxsebq-Kknthj-Vqnmjb Hx Patient Social History Tobacco Use?: Yes Smoking Status: Current Everyday Smoker Substance use?: No Alcohol Use?: No Immunizations Up To Date Tetanus Booster (TDap): More than 5yrs PED Vaccines UTD: Yes First/Initial COVID19 Vaccinat: 07/07 Second COVID19 Vaccination Medardo: 07/07 Third COVID19 Vaccination Date: 07/07 Seasonal Allergies Seasonal Allergies: Yes Past Medical History Surgeries: Yes Abdominal, Section, Ear Surgery, Hysterectomy, Oophorectomy, Tonsillectomy Respiratory: Yes Asthma, Sleep Apnea, COPD Currently Using CPAP: No Currently Using BIPAP: No Cardiac: Yes Hypertension Neurological: No Stroke, TIA Reproductive Disorders: Yes (UTERINE CANCER) Female Reproductive Disorders: Denies Sexually Transmitted Disease: No HIV/AIDS: No Genitourinary: Yes (BLADDER INFECTION ONCE) Bladder Infection Gastrointestinal: Yes Diverticulosis Musculoskeletal: Yes Arthritis, Back Injury Endocrine: Yes Hypothyroidsim, Diabetes, Non-Insulin dep HEENT: No Loss of Vision: Denies Hearing Impairment: Hard of Hearing Cancer: Yes Uterine Did You Recieve Any Treatments: Yes What Type of Treatment Did You: Surgical Intervention Psychosocial: Yes Anxiety, Depression Integumentary: No (RASH BETWEEN FINGERS ON RIGHT HAND) Blood Disorders: No Adverse Reaction/Blood Tranf: No Family Medical History Cancer 03 MOTHER (LIVER CANCER) Congestive heart failure 03 FATHER Family history: Asthma 03 FATHER 09 BROTHER Family history: Cardiovascular disease 03 FATHER Family history: Thyroid disorder 03 FATHER 09 BROTHER 09 BROTHER 09 BROTHER 09 BROTHER 09 SISTER 09 SISTER 09 SISTER 09 SISTER History of - respiratory disease 03 FATHER (COPD, ASTHMA, EMPHYSEMA) 09 BROTHER 09 BROTHER 09 BROTHER 09 BROTHER 09 SISTER 09 SISTER 09 SISTER 09 SISTER Asthma, Heart Disease, Cancer, COPD, Diabetes Physical Exam Vital Signs Vital Signs - First Documented 06/01/23 06/01/23 18:26 20:15 Temp 37.0 Pulse 83 Resp 16 B/P (MAP) 186/93 (124) Pulse Ox 94 O2 Delivery Room Air O2 Flow Rate 2.00 Capillary Refill : Less Than 3 Seconds Height, Weight, BMI Height: 5'2.00" Weight: 234lbs. 4.0oz. 106.799624so; 40.00 BMI Method:Stated General Appearance: WD/WN, Mild Distress HEENT: PERRL/EOMI, Normal ENT Inspection Neck: Normal Inspection Respiratory: No Accessory Muscle Use, No Respiratory Distress, Wheezing Cardiovascular: Regular Rate, Rhythm, No Edema, No Murmur Gastrointestinal: Non Tender, Soft Extremity: Normal Inspection Neurologic/Psychiatric: Alert, Oriented x3, No Motor/Sensory Deficits, Normal Mood/Affect Skin: Normal Color, Warm/Dry Other comments Patient has tenderness in the paraspinous muscles between the thoracic spine and right scapula. No rash or erythema on the overlying skin. Progress/Results/Core Measures Results/Orders Lab Results Laboratory Tests Test 06/01/23 18:35 Range/Units White Blood Count 9.4 4.3-11.0 10^3/uL Red Blood Count 4.06 3.80-5.11 10^6/uL Hemoglobin 11.1 L 11.5-16.0 g/dL Hematocrit 34 L 35-52 % Mean Corpuscular Volume 85 80-99 fL Mean Corpuscular Hemoglobin 27 25-34 pg Mean Corpuscular Hemoglobin Concent 32 32-36 g/dL Red Cell Distribution Width 15.1 H 10.0-14.5 % Platelet Count 450 H 130-400 10^3/uL Mean Platelet Volume 10.1 9.0-12.2 fL Immature Granulocyte % (Auto) 0 % Neutrophils (%) (Auto) 66 42-75 % Lymphocytes (%) (Auto) 20 12-44 % Monocytes (%) (Auto) 9 0-12 % Eosinophils (%) (Auto) 4 0-10 % Basophils (%) (Auto) 1 0-10 % Neutrophils # (Auto) 6.2 1.8-7.8 10^3/uL Lymphocytes # (Auto) 1.9 1.0-4.0 10^3/uL Monocytes # (Auto) 0.8 0.0-1.0 10^3/uL Eosinophils # (Auto) 0.4 H 0.0-0.3 10^3/uL Basophils # (Auto) 0.1 0.0-0.1 10^3/uL Immature Granulocyte # (Auto) 0.0 0.0-0.1 10^3/uL Sodium Level 127 L 135-145 MMOL/L Potassium Level 4.3 3.6-5.0 MMOL/L Chloride Level 93 L 98-107 MMOL/L Carbon Dioxide Level 23 21-32 MMOL/L Anion Gap 11 5-14 MMOL/L Blood Urea Nitrogen 15 7-18 MG/DL Creatinine 0.86 0.60-1.30 MG/DL Estimat Glomerular Filtration Rate 73 BUN/Creatinine Ratio 17 Glucose Level 95 70-105 MG/DL Calcium Level 9.2 8.5-10.1 MG/DL My Orders Orders - MAI BEDOYA MD Basic Metabolic Panel (06/01/23 18:36) Cbc And Automated Diff (06/01/23 18:36) Ipratropium/Albuterol Inh Soln (Ipratrop (06/01/23 18:45) Svn Small Volume Nebulizer (06/01/23 18:36) Fentanyl Injection (Fentanyl Injection (06/01/23 18:45) Ct Chest Wo (06/01/23 18:36) Ondansetron Injection (Ondansetron Inj (06/01/23 19:15) Ketorolac Injection (Ketorolac Injection (06/01/23 20:15) Methylprednisolone Sod Succ (Methylpredn (06/01/23 20:30) O2 (06/01/23 20:25) Ed Admission (Communication) (06/01/23 20:53) Medications Given in ED Vital Signs/I&O 06/01/23 06/01/2306/01/23 18:26 20:15 21:23 Temp 37.0 37.0 Pulse 83 92 Resp 16 16 B/P (MAP) 186/93 (124) 139/102 Pulse Ox 94 93 O2 Delivery Room Air Nasal Cannula Nasal Cannula O2 Flow Rate 2.00 2.00 Blood Pressure Mean: 124 Progress Progress Note : Progress Note DuoNeb was administered for COPD exacerbation which resolved her wheezing. She was also given an additional fentanyl 50 mcg dose. Despite these treatments, she continued to have pain and was noted to be hypoxic on room air. She does not normally require oxygen supplementation. Nasal cannula was supplied at 2 L/min which resuscitated her oxygen saturation. She was additionally given Toradol. Despite these interventions, she continued to require nasal cannula. Solu-Medrol was added for treatment of this musculoskeletal pain and COPD exacerbation. A 40 mg dose was used instead of a 125 mg dose because she reported prior problems with Solu-Medrol causing irritability and hyperglycemia. CT of the chest was obtained and viewed by me. I appreciated an old incompletely healed rib fracture on the right posterior chest but no other acute abnormalities. Radiologist's report was also reviewed as noted below. There were chronic appearing lung findings but no acute findings on the interpretation. I spoke with staff at [facility]. They have no way to administer oxygen for Ms. Panda this evening. Patient will be admitted until her hypoxia resolves or we are able to arrange oxygen support for her. I d iscussed CODE STATUS with the patient, and she elects full code. Case was discussed with Dr. Anderson, admitting hospitalist, who accepts admission. Diagnostic Imaging Diagonstic Imaging: CT Plain Films/CT/US/NM/MRI: chest Comments NAME: [facility] REC#: [id number] PT STATUS: REG ER : 1955 PHYSICIAN: MAI BEDOYA MD ADMIT DATE: 06/01/23/ER Signed Date of Exam:06/01/23 CT CHEST WO PROCEDURE: CT chest without contrast. TECHNIQUE: Multiple contiguous axial images were obtained through the chest without the use of intravenous contrast. Auto Exposure Controls were utilized during the CT exam to meet ALARA standards for radiation dose reduction. INDICATION: Severe chest wall pain. COMPARISON: Radiographs from 05/11/2023, CT from 08/27/2013. FINDINGS: The heart is mildly large. There is no pericardial effusion. There is coronary and aortic atherosclerosis. The ascending aorta is mildly ectatic measuring 4 cm. The main pulmonary artery is enlarged measuring 4.9 cm in caliber. There is a small hiatal hernia. There is a mildly prominent right lower paratracheal lymph node measuring about 1.1 cm in short axis (image 44 series 2). There is no pleural effusion or pneumothorax. There are mildly prominent reticular and interstitial opacities in the lung periphery, particularly posteriorly and at the apices. No consolidation is seen. There is a small nodule in the right upper lobe which is stable since the prior exam in 2013. There is a small nodule in the left lower lobe which is stable since 2014 as well. No new nodule is appreciated. No central endobronchial lesion is seen. There are old right-sided rib fractures. There are degenerative changes in the spine. Imaged portions of the upper abdomen demonstrate no acute abnormality. There is mild thickening of the adrenal glands. IMPRESSION: 1. Chronic interstitial and reticular opacities in the peripheral lungs, may be an early fibrosis. No acute pulmonary abnormality is seen. 2. Old right-sided rib fractures. No acute fracture is seen. 3. Ectatic ascending aorta. Enlargement of the main pulmonary artery can be seen with pulmonary hypertension. 4. Adrenal hyperplasia. Dictated by: Dictated on workstation # [id number] Dict: 06/01/231908 Trans: 06/01/231927 [facility] [id number] Interpreted by: BILLY BOATENG MD Electronically signed by: BILLY BOATENG MD 06/01/231927 Departure Communication (Admissions) Time/Spoke to Admitting Phy: 20:21 Dr. Anderson Impression Primary Impression: Hypoxia Additional Impressions: Muscle spasm of back COPD exacerbation Disposition: ADMITTED INPATIENT Condition: Stable Admissions Decision to Admit Reason: Admit from ER (General) Decision to Admit/Date: Jun 01, 2023 Time/Decision to Admit Time: 20:21 Departure-Patient Inst. Referrals: JW IBRAHIM DO (PCP/Family) Primary Care Physician Copy Copies To 1: JW IBRAHIM JOSHUA T MD Jun 01, 2023 18:38
[2023-06-01] MEDS ORDERED: RT-Ipratropium/Albuterol NEB 3 ML VIAL INH ONE (18:45)
[2023-06-01] MEDS ORDERED: fentaNYL INJECTION 100 MCG/2 ML VIAL IVP ONE (18:45)
[2023-06-01 18:52] LABS: POTASSIUM 4.3 MMOL/L (3.6-5.0)
[2023-06-01 18:54] LABS: CALCIUM 9.2 MG/DL (8.5-10.1)
[2023-06-01 18:58] LABS: CREATININE SERUM 0.86 MG/DL (0.60-1.30)
[2023-06-01 18:59] LABS: BASOPHILS # (AUTO) 0.1 10^3/uL (0.0-0.1); BASOPHILS % (AUTO) 1 % (0-10); EOSINOPHILS # (AUTO) 0.4 10^3/uL (0.0-0.3); EOSINOPHILS % (AUTO) 4 % (0-10); HEMATOCRIT 34 % (35-52); HEMOGLOBIN 11.1 g/dL (11.5-16.0); LYMPHOCYTES # (AUTO) 1.9 10^3/uL (1.0-4.0); LYMPHOCYTES % (AUTO) 20 % (12-44); MEAN CORPUSCULAR HEMOGLOBIN 27 pg (25-34); MEAN CORPUSCULAR HGB CONC 32 g/dL (32-36); MEAN CORPUSCULAR VOLUME 85 fL (80-99); MEAN PLATELET VOLUME 10.1 fL (9.0-12.2); MONOCYTES # (AUTO) 0.8 10^3/uL (0.0-1.0); MONOCYTES % (AUTO) 9 % (0-12); NEUTROPHILS # (AUTO) 6.2 10^3/uL (1.8-7.8); NEUTROPHILS % (AUTO) 66 % (42-75); PLATELET COUNT 450 10^3/uL (130-400); WHITE BLOOD COUNT 9.4 10^3/uL (4.3-11.0)
[2023-06-01] MEDS ORDERED: ONDANSETRON INJECTION 4 MG/2 ML (SDV) IVP ONE (19:15)
--- NOTE | 2023-06-01 19:27 | Diagnostic Imaging Report ---
PROCEDURE: CT chest without contrast. TECHNIQUE: Multiple contiguous axial images were obtained through the chest without the use of intravenous contrast. Auto Exposure Controls were utilized during the CT exam to meet ALARA standards for radiation dose reduction. INDICATION: Severe chest wall pain. COMPARISON: Radiographs from 05/11/2023, CT from 08/27/2013. FINDINGS: The heart is mildly large. There is no pericardial effusion. There is coronary and aortic atherosclerosis. The ascending aorta is mildly ectatic measuring 4 cm. The main pulmonary artery is enlarged measuring 4.9 cm in caliber. There is a small hiatal hernia. There is a mildly prominent right lower paratracheal lymph node measuring about 1.1 cm in short axis (image 44 series 2). There is no pleural effusion or pneumothorax. There are mildly prominent reticular and interstitial opacities in the lung periphery, particularly posteriorly and at the apices. No consolidation is seen. There is a small nodule in the right upper lobe which is stable since the prior exam in 2013. There is a small nodule in the left lower lobe which is stable since 2014 as well. No new nodule is appreciated. No central endobronchial lesion is seen. There are old right-sided rib fractures. There are degenerative changes in the spine. Imaged portions of the upper abdomen demonstrate no acute abnormality. There is mild thickening of the adrenal glands. IMPRESSION: 1. Chronic interstitial and reticular opacities in the peripheral lungs, may be an early fibrosis. No acute pulmonary abnormality is seen. 2. Old right-sided rib fractures. No acute fracture is seen. 3. Ectatic ascending aorta. Enlargement of the main pulmonary artery can be seen with pulmonary hypertension. 4. Adrenal hyperplasia. Dictated by: Dictated on workstation # [id number]
[2023-06-01] MEDS ORDERED: KETOROLAC INJ 30 MG/ML VIAL IVP ONE (20:15)
[2023-06-01] MEDS ORDERED: methylPREDNISolone INJ 125 MG VIAL IVP ONE (20:15)
[2023-06-01] MEDS ORDERED: methylPREDNISolone INJ 40 MG/ML VIAL IV ONE (20:30)
[2023-06-01] MEDS ORDERED: MELATONIN 3 MG TABLET PO PRN (21:45)
[2023-06-01] MEDS ORDERED: HYDROmorphone INJECTION 2 MG/ML VIAL IV PRN (21:45)
[2023-06-01] MEDS ORDERED: BISACODYL 10 MG SUPPOSITORY PR PRN (21:45)
[2023-06-01] MEDS ORDERED: CALCIUM CARBONATE 500 MG CHEW TABLET PO PRN (21:45)
[2023-06-01] MEDS ORDERED: ANTACID SUSPENSION 30 ML UDC PO PRN (21:45)
[2023-06-01] MEDS ORDERED: LACTULOSE SYRUP 10GM/15ML 30ML UDC PO PRN (21:45)
[2023-06-01] MEDS ORDERED: LORazepam 0.5 MG TABLET PO PRN (21:45)
[2023-06-01] MEDS ORDERED: HALOPERIDOL INJECTION 5 MG/ML VIAL IM PRN (21:45)
[2023-06-01] MEDS ORDERED: ONDANSETRON INJECTION 4 MG/2 ML (SDV) IV PRN (21:45)
[2023-06-01] MEDS ORDERED: diphenhydrAMINE 25 MG TABLET PO PRN (21:45)
[2023-06-01] MEDS ORDERED: BACLOFEN 10 MG TABLET PO PRN (21:45)
[2023-06-01] MEDS ORDERED: cloNIDine 0.1 MG TABLET PO PRN (21:45)
[2023-06-01] MEDS ORDERED: diphenhydrAMINE INJ 50 MG/ML VIAL IVP PRN (21:45)
[2023-06-01] MEDS ORDERED: hydrALAZINE INJECTION 20 MG/ML VIAL IV PRN (21:45)
[2023-06-01] MEDS ORDERED: MILK OF MAGNESIA 400 MG/5 ML 30 ML UDC PO PRN (21:45)
[2023-06-01] MEDS ORDERED: ONDANSETRON 4 MG ORAL DISSOLVE TABLET PO PRN (21:45)
[2023-06-01] MEDS: ENOXAPARIN 40 MG/0.4 ML SYRINGE SC SCH (22:49)
[2023-06-01 23:47] VITALS: BP 146/89
[2023-06-02 03:23] VITALS: BP 152/85
[2023-06-02] MEDS ORDERED: RT-ALBUTEROL SULF 2.5 MG/3 ML PRE-MIX VIAL ONE (04:40)
[2023-06-02] MEDS ORDERED: RT-ALBUTEROL SULF 2.5 MG/3 ML PRE-MIX VIAL INH PRN (04:45)
[2023-06-02 05:19] LABS: BASOPHILS % (AUTO) 0 % (0-10); EOSINOPHILS % (AUTO) 0 % (0-10); HEMATOCRIT 34 % (35-52); LYMPHOCYTES # (AUTO) 0.6 10^3/uL (1.0-4.0); LYMPHOCYTES % (AUTO) 5 % (12-44); MEAN CORPUSCULAR HEMOGLOBIN 27 pg (25-34); MEAN CORPUSCULAR HGB CONC 33 g/dL (32-36); MEAN CORPUSCULAR VOLUME 83 fL (80-99); MEAN PLATELET VOLUME 9.7 fL (9.0-12.2); MONOCYTES # (AUTO) 0.2 10^3/uL (0.0-1.0); MONOCYTES % (AUTO) 2 % (0-12); NEUTROPHILS # (AUTO) 11.7 10^3/uL (1.8-7.8); NEUTROPHILS % (AUTO) 93 % (42-75); PLATELET COUNT 424 10^3/uL (130-400); WHITE BLOOD COUNT 12.6 10^3/uL (4.3-11.0)
[2023-06-02 05:36] LABS: ANISOCYTOSIS SLIGHT; BAND NEUTROPHILS 0 %; BASOPHILS % (MANUAL) 0 %; ELLIPT/OVALOCYTES SLIGHT; EOSINOPHILS % (MANUAL) 0 %; HYPOCHROMASIA SLIGHT; LYMPHOCYTES % (MANUAL) 2 %; MONOCYTES % (MANUAL) 1 %; NEUTROPHILS % (MANUAL) 96 %; POIKILOCYTOSIS SLIGHT; REACTIVE LYMPHOCYTES 1 %; TARGET CELLS SLIGHT
[2023-06-02 05:45] LABS: ALBUMIN 3.9 GM/DL (3.2-4.5); POTASSIUM 4.8 MMOL/L (3.6-5.0)
[2023-06-02 05:46] LABS: CALCIUM 9.4 MG/DL (8.5-10.1)
[2023-06-02 05:48] LABS: TOTAL PROTEIN 6.9 GM/DL (6.4-8.2)
[2023-06-02 05:49] LABS: BILIRUBIN,TOTAL 0.2 MG/DL (0.1-1.0)
[2023-06-02 05:51] LABS: CREATININE SERUM 0.94 MG/DL (0.60-1.30)
[2023-06-02] MEDS: inSUlin ASPART 1 UNIT/0.01 ML (PER UNIT) SC SCH ×4 (06:16→20:54)
[2023-06-02] MEDS: ACETAMINOPHEN 325 MG TABLET PO PRN ×2 (06:47→14:02)
[2023-06-02] MEDS ORDERED: RT-Ipratropium/Albuterol NEB 3 ML VIAL INH ONE (07:00)
[2023-06-02 07:38] VITALS: BP 156/88
[2023-06-02] MEDS: SENNOSIDES 8.6 MG TABLET PO SCH ×2 (09:38→20:54)
[2023-06-02] MEDS: DOCUSATE SODIUM 100 MG CAPSULE PO SCH ×2 (09:38→20:54)
[2023-06-02] MEDS: dexAMETHasone INJ 4 MG/ML SDV IV SCH ×2 (09:38→20:52)
--- NOTE | 2023-06-02 10:51 | Short Stay Summary-Hospitalist ---
ALFRED COPELAND 06/02/23 1051: History of Present Illness HPI/Chief Complaint Pt presented to the ED on 06/01 at 1828H by EMS due to right rib pain that occurred after a coughing episode. Today the pt is experiencing right sided lateral rib pain that is an 8/10 that is described as "being kicked in the ribs". Pt denies any radiation. Movement of her rt UE or taking deep breaths exacerbates her pain. Positive assoc sx incude cough, SOB, GALAVIZ, nausea, and vomiting. Negative assoc sx include abdominal pain and blood in BM or vomit. Last BM was at 0800H and reports it was "normal". She has not eaten breakfast this morning due to vomiting. 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 Patients Allergies have been reviewed. Allergies Allergies Coded Allergies Cbgqzse-YEV-NdX Reductase Inhibitor (Verified Allergy, Unknown, 10/09/19) muscle pain meperidine (Verified Allergy, Unknown, 08/16/13) Past Medical/Social/Family Hx Patient Social History Tobacco Use?: Yes Tobacco type used: Cigars Smoking Status: Current Everyday Smoker Use of E-Cig and/or Vaping dev: No Substance use?: No Alcohol Use?: No Pt stated abuse/neglect: No Immunizations Up To Date Influenza Vaccine Up-to-Date: No; Not Current First/Initial COVID19 Vaccinat: 07/07 Second COVID19 Vaccination Medardo: 07/07 Tetanus Booster (TDap): Less Than 5 Years Hepatitis A: No Hepatitis B: Yes TB Skin Test: Negative Date of Pneumonia Vaccine: Jul 18, 2015 Current Status Advance Directives: No Communicates: Verbally Primary Language: Pashto Preferred Spoken Language: Pashto Is interpretation needed?: No Implanted or Applied Medical D: None Past Medical History MedHx: HTN high cholesterol hypothyroid asthma DMII uterine cancer SurgHx: tonsilectomy as PET-5th and 6th grade 2 c-sections 1974,1976 tubal ligation hysterectomy 1989 cyctetomy R breast Review of Systems Constitutional: No chills, No fever EENTM: No ear pain, No blurred vision, No double vision, No eye pain Respiratory: cough, short of breath Cardiovascular: No chest pain Physical Exam Physical Exam Vital Signs Vital Signs - First Documented 06/01/23 06/01/23 06/02/23 18:26 20:15 04:43 Temp 37.0 Pulse 83 Resp 16 B/P (MAP) 186/93 (124) Pulse Ox 94 O2 Delivery Room Air O2 Flow Rate 2.00 FiO2 28 Capillary Refill : Less Than 3 Seconds Height, Weight, BMI Height: 5'2.00" Weight: 234lbs. 4.0oz. 106.068520mm; 42.39 BMI Method:Stated General Appearance: Mild Distress HEENT: PERRL/EOMI, TMs Normal; No Photophobia, No Scleral Icterus (L), No Scleral Icterus (R) Neck: Non Tender; No JVD Respiratory: Lungs Clear, Normal Breath Sounds, No Accessory Muscle Use, No Respiratory Distress Cardiovascular: Regular Rate, Rhythm, No Murmur Gastrointestinal: Normal Bowel Sounds, Non Tender, Soft Back: Decreased Range of Motion, Other (tender rt ribs 12-3. ) Extremity: No Calf Tenderness Neurologic/Psychiatric: Alert, Oriented x3, No Motor/Sensory Deficits, Normal Mood/Affect, wellhead pumper II-XII Norm as Tested Results Results/Procedures Labs Laboratory Tests 06/01/23 18:35 06/02/23 05:02 Patient resulted labs reviewed. Short Stay Diagnosis Discharge Diagnosis-Short Stay Admission Diagnosis Assessment: Rt Ribs 12-3 Tenderness Hypoxia Vomiting Plan: Rt Ribs 12-3 Tenderness -pt is to continue pain medications Hypoxia -pt is currently on Oxygen -continue to monitor status Vomiting -pt is to continue anti-nausea medication JUDY ANDERSON DO 06/03/23 0504: History of Present Illness HPI/Chief Complaint Chief complaint: Hypoxia with back pain HPI: This is a 67-year-old female who presented to the ER and cough with hypoxia. Patient currently complaining of nausea. Patient is a poor historian. Source: patient Exam Limitations: no limitations Past Medical/Social/Family Hx Patient Social History Marrital Status: single Employed/Student: unemployed Smoking Status: Never a Smoker Review of Systems Constitutional: see HPI Physical Exam Physical Exam General Appearance: WD/WN, Anxious, Chronically ill, Mild Distress, Obese Respiratory: No Accessory Muscle Use, Decreased Breath Sounds Cardiovascular: Regular Rate, Rhythm Neurologic/Psychiatric: Alert, Oriented x3, Disoriented Short Stay Diagnosis Discharge Diagnosis-Short Stay Admission Diagnosis Acute hypoxic respiratory failure Exacerbation of COPD/asthma Right rib pain Plan: Home meds Oxygen Final Discharge Diagnosis Acute hypoxic respiratory failure Exacerbation of COPD/asthma Right rib pain Plan: Home meds Oxygen Conclusion Plan Maintain oxygen Steroids Supervisory-Addendum Brief Verification & Attestation Participated in pt care: history, MDM, physical Personally performed: exam, history, MDM, supervision of care Care discussed with: Medical Student Procedures: n/a Results interpretation: Verified all documentation Verification and Attestation of Medical Student E/M Service A medical student performed and documented this service in my presence. I reviewed and verified all information documented by the medical student and made modifications to such information, when appropriate. I personally performed the physical exam and medical decision making. Jduy Anderson, Jun 03, 2023,05:04 ALFRED COPELAND Jun 02, 2023 10:51 JUDY ANDERSON DO Jun 03, 2023 05:04
[2023-06-02 11:40] VITALS: BP 158/88
[2023-06-02] MEDS ORDERED: METOCLOPRAMIDE INJ 10 MG/2 ML IVP PRN (12:00)
[2023-06-02] MEDS ORDERED: METOCLOPRAMIDE INJ 10 MG/2 ML IVP NR (12:00)
--- NOTE | 2023-06-02 13:56 | Physical Therapy Evaluation ---
PT Evaluation-General Medical Diagnosis Admission Date Jun 01, 2023 at 21:25 Medical Diagnosis: COPD/hypoxia Onset Date: Jun 01, 2023 Therapy Diagnosis Therapy Diagnosis: debility Height/Weight Height (Feet): 5 Height (Inches): 2.00 Weight (Pounds): 234 Weight (Ounces): 4.0 Precautions Precautions/Isolations: Fall Prevention, Standard Precautions Referral Physician: Marla Reason for Referral: Evaluation/Treatment Medical History Pertinent Medical History: COPD, CVA, DM, HTN, Smoking Current History EMS secondary right rib pain Reviewed History: Yes Social History Home: Assisted Living Prior Prior Level of Function SCALE: Activities may be completed with or without assistive devices. 4-Rmayfjekuo-igqtasm completes the activity by him/herself with no assistance from a helper. 5-Set-up or Clean-up Assistance-helper sets up or cleans up; patient completes activity. [place] assists only prior to or following the activity. 4-Supervision or Touching Assistance-helper provides verbal cues and/or touching/steadying and/or contact guard assistance as patient completes activity. Assistance may be provided throughout the activity or intermittently. 3-Partial/Moderate Assistance-helper does LESS THAN HALF the effort. [place] lifts, holds or supports trunk or limbs, but provides less than half the effort. 2-Substantial/Maximal Assistance-helper does MORE THAN HALF the effort. [place] lifts or holds trunk or limbs and provides more than half the effort. 0-Sgjkwzavd-rwvrhm does ALL the effort. Patient does none of the effort to complete the activity. Or, the assistance of 2 or more helpers is required for the patient to complete the activity. If activity was not attempted, code reason: 7-Patient Refused. 9-Not Applicable-not attempted and the patient did not perform the activity before the current illness, exacerbation or injury. 10-Not Attempted due to Environmental Limitations-(lack of equipment, weather restraints, etc.). 88-Not Attempted due to Medical Conditions or Safety Concerns. Bed Mobility: 6 Transfers (B,C,W/C): 6 Gait: 6 Indoor Mobility (Ambulation): Independent Prior Devices Use: Walker (4WW) PT Evaluation-Current Subjective Patient reluctantly agrees to PT. Pain Numeric Pain Scale: 10-Worst Possible Pain Location: Right Location Body Site: Side Pain Description: Acute ROM/Strength ROM Lower Extremities bilateral LE WFL Strength Lower Extremities 4/5 grossly bilateral LE Integumentary/Posture Bowel Incontinence: No Bladder Incontinence: No Posture WFL Neuromuscular (Tone, Coordination, Reflexes) grossly intact Sensory Vision: Functional Hearing: Functional Transfers Sit to Stand (QC): 5 Gait Mode of Locomotion: Walk Anticipated Mode of Locomotion: Walk Walk 10 feet (QC): 5 Walk 50 ft with 2 Turns(QC): 5 Walk 150 ft (QC): 5 Distance: 225' Gait Assistive Device: FWW Comments/Gait Description slow with multiple standing recovery periods due to c/o right side pain and attention span Balance Sitting Static: Normal Sitting Dynamic: Normal Standing Static: Normal Standing Dynamic: Normal Assessment/Needs Patient will be seen x 2 sessions to address functional mobility to ensure safe return to [place] at maximum LOF. Rehab Potential: Fair PT Short Term Goals Short Term Goals Time Frame: Jun 03, 2023 Roll Left & Right: 6 Sit to lyin Lying to sitting on side of be: 6 Sit to stand: 6 Chair/kmv-yx-furag transfer: 6 Toilet transfer: 6 Walk 10 feet: 6 Walk 50 feet with two turns: 6 Walk 150 feet: 6 PT Plan Treatment/Plan Treatment Plan: Continue Plan of Care Treatment Plan: Education, Functional Activity Marjorie, Functional Strength, Gait, Safety, Therapeutic Exercise, Transfers Treatment Duration: Jun 03, 2023 Frequency: 2 times per week Estimated Hrs Per Day: .25 hour per day Patient and/or Family Agrees t: Yes Time Time In: 1320 Time Out: 1334 DATE: Jun 02, 2023 Total Billed Treatment Time: 14 Total Billed Treatment 1 visit [facility] 14 min ELEANOR OROZCO PT Jun 02, 2023 13:56
[2023-06-02] MEDS ORDERED: ONDA-105 PO (14:55)
[2023-06-02] MEDS ORDERED: METF-397 PO (14:55)
[2023-06-02] MEDS ORDERED: LORA10TA7 PO (14:55)
[2023-06-02] MEDS ORDERED: ASCO250T17 PO (14:55)
[2023-06-02] MEDS ORDERED: CITA20TA9 PO (14:55)
[2023-06-02] MEDS ORDERED: MENT120C2 TP (14:55)
[2023-06-02] MEDS ORDERED: LEVO137T2 PO (14:55)
[2023-06-02] MEDS ORDERED: NF-NACL1GT PO (14:55)
[2023-06-02] MEDS ORDERED: CLOP75TA28 PO (14:55)
[2023-06-02] MEDS ORDERED: IPRA3AMP31 IH (14:55)
[2023-06-02] MEDS ORDERED: FERR240T5 PO (14:55)
[2023-06-02] MEDS ORDERED: [UNRECOGNIZED DRUG - CODE] PO (14:55)
[2023-06-02] MEDS ORDERED: HYDR-700 PO (14:55)
[2023-06-02] MEDS ORDERED: ACET-2267 PO (14:55)
[2023-06-02] MEDS ORDERED: FLUT1BLS12 INH (14:55)
[2023-06-02] MEDS ORDERED: MAGN250C PO (14:55)
[2023-06-02] MEDS ORDERED: ESOM20CA37 PO (14:55)
[2023-06-02] MEDS ORDERED: MELA3TAB39 PO (14:55)
[2023-06-02] MEDS: RT-Ipratropium/Albuterol NEB 3 ML VIAL INH SCH ×2 (15:09→18:43)
[2023-06-02 15:17] VITALS: BP 154/81
[2023-06-02] MEDS ORDERED: MELATONIN 3 MG TABLET PO PRN (16:45)
[2023-06-02] MEDS: metFORMIN 500 MG TABLET PO SCH (17:29)
[2023-06-02 19:08] VITALS: BP 137/67
[2023-06-02] MEDS: ENOXAPARIN 40 MG/0.4 ML SYRINGE SC SCH (20:53)
[2023-06-02] MEDS: oxyCODONE IMMEDIATE RELEASE 5 MG TABLET PO PRN (20:53)
[2023-06-02 23:45] VITALS: BP 124/80
[2023-06-03 03:17] VITALS: BP 168/72
[2023-06-03] MEDS: oxyCODONE IMMEDIATE RELEASE 5 MG TABLET PO PRN ×2 (03:31→09:36)
[2023-06-03] MEDS ORDERED: IBUPROFEN 200 MG TABLET PO PRN (05:00)
[2023-06-03] MEDS ORDERED: ACETAMINOPHEN 500 MG TABLET PO PRN (05:00)
[2023-06-03] MEDS: inSUlin ASPART 1 UNIT/0.01 ML (PER UNIT) SC SCH ×3 (05:40→15:32)
[2023-06-03] MEDS ORDERED: hydrOXYzine 25 MG CAPSULE PO PRN (05:45)
[2023-06-03 05:58] LABS: BASOPHILS % (AUTO) 0 % (0-10); EOSINOPHILS % (AUTO) 0 % (0-10); HEMATOCRIT 32 % (35-52); HEMOGLOBIN 10.8 g/dL (11.5-16.0); LYMPHOCYTES # (AUTO) 0.8 10^3/uL (1.0-4.0); LYMPHOCYTES % (AUTO) 5 % (12-44); MEAN CORPUSCULAR HEMOGLOBIN 28 pg (25-34); MEAN CORPUSCULAR HGB CONC 33 g/dL (32-36); MEAN CORPUSCULAR VOLUME 83 fL (80-99); MEAN PLATELET VOLUME 10.2 fL (9.0-12.2); MONOCYTES # (AUTO) 0.8 10^3/uL (0.0-1.0); MONOCYTES % (AUTO) 5 % (0-12); NEUTROPHILS # (AUTO) 13.5 10^3/uL (1.8-7.8); NEUTROPHILS % (AUTO) 89 % (42-75); PLATELET COUNT 450 10^3/uL (130-400); WHITE BLOOD COUNT 15.2 10^3/uL (4.3-11.0)
[2023-06-03 06:05] LABS: ALBUMIN 4.1 GM/DL (3.2-4.5); POTASSIUM 4.6 MMOL/L (3.6-5.0)
[2023-06-03 06:06] LABS: CALCIUM 9.4 MG/DL (8.5-10.1)
[2023-06-03 06:07] LABS: TOTAL PROTEIN 7.1 GM/DL (6.4-8.2)
[2023-06-03 06:09] LABS: BILIRUBIN,TOTAL 0.3 MG/DL (0.1-1.0)
[2023-06-03 06:11] LABS: CREATININE SERUM 0.85 MG/DL (0.60-1.30)
[2023-06-03] MEDS ORDERED: LEVOTHYROXINE 112 MCG TABLET PO SCH (06:30)
[2023-06-03] MEDS ORDERED: LEVOTHYROXINE 25 MCG TABLET PO SCH (06:30)
[2023-06-03] MEDS: RT-Ipratropium/Albuterol NEB 3 ML VIAL INH SCH ×2 (06:48→10:55)
[2023-06-03] MEDS ORDERED: PIOGLITAZONE 30MG TABLET PO SCH (07:00)
[2023-06-03] MEDS ORDERED: PANTOPRAZOLE 40 MG TABLET PO SCH (07:00)
[2023-06-03] MEDS ORDERED: MAGNESIUM OXIDE 400 MG TABLET PO SCH (08:00)
[2023-06-03] MEDS ORDERED: FLUTICASONE/VILANTEROL 100/25 MCG (14 DOSES) IH SCH (08:00)
[2023-06-03 08:21] VITALS: BP 153/83
[2023-06-03] MEDS ORDERED: FERROUS GLUCONATE 240 MG PO SCH (09:00)
[2023-06-03] MEDS ORDERED: CLOPIDOGREL 75 MG TABLET PO SCH (09:00)
[2023-06-03] MEDS ORDERED: MAGNESIUM CITRATE AND OXIDE 250 MG PO SCH (09:00)
[2023-06-03] MEDS ORDERED: LORATADINE 10 MG TABLET PO SCH (09:00)
[2023-06-03] MEDS ORDERED: NON-FORMULARY MEDICATION 1 EA EA (Levothyroxine Sodium 137 MCG) PO SCH (09:00)
[2023-06-03] MEDS ORDERED: THERAPEUTIC MULTIVITAMIN W/MINERALS TABLET PO SCH (09:00)
[2023-06-03] MEDS ORDERED: ASPIRIN enteric coated 81MG TABLET PO SCH (09:00)
[2023-06-03] MEDS ORDERED: FERROUS SULFATE 325 MG (IRON) TABLET PO SCH (09:00)
[2023-06-03] MEDS ORDERED: CITALOPRAM 20 MG TABLET PO SCH (09:00)
[2023-06-03] MEDS ORDERED: SODIUM CHLORIDE 1 GM TABLET PO SCH (09:00)
[2023-06-03] MEDS: DOCUSATE SODIUM 100 MG CAPSULE PO SCH (09:14)
[2023-06-03] MEDS: metFORMIN 500 MG TABLET PO SCH (09:14)
[2023-06-03] MEDS: SENNOSIDES 8.6 MG TABLET PO SCH (09:14)
[2023-06-03] MEDS: dexAMETHasone INJ 4 MG/ML SDV IV SCH (09:15)
--- NOTE | 2023-06-03 10:22 | Physical Therapy Daily Note ---
PT Daily Note-Current Subjective Patient agrees to PT. Pain Section J - Health Conditions 1. Rarely or not at all 2. Occasionally 3. Frequently 4. Almost constantly 8. Unable to answer Pain Effect on Sleep: 2 Pain Interference with Therapy: 2 Pain Interference w/Day-to-Day: 2 Transfers SCALE: Activities may be completed with or without assistive devices. 9-Pguraudzhl-bhtgtto completes the activity by him/herself with no assistance from a helper. 5-Set-up or Clean-up Assistance-helper sets up or cleans up; patient completes activity. [place] assists only prior to or following the activity. 4-Supervision or Touching Assistance-helper provides verbal cues and/or touching/steadying and/or contact guard assistance as patient completes activity. Assistance may be provided throughout the activity or intermittently. 3-Partial/Moderate Assistance-helper does LESS THAN HALF the effort. [place] lifts, holds or supports trunk or limbs, but provides less than half the effort. 2-Substantial/Maximal Assistance-helper does MORE THAN HALF the effort. [place] lifts or holds trunk or limbs and provides more than half the effort. 5-Dcuhjsinl-kjcpnh does ALL the effort. Patient does none of the effort to complete the activity. Or, the assistance of 2 or more helpers is required for the patient to complete the activity. If activity was not attempted, code reason: 7-Patient Refused. 9-Not Applicable-not attempted and the patient did not perform the activity before the current illness, exacerbation or injury. 10-Not Attempted due to Environmental Limitations-(lack of equipment, weather restraints, etc.). 88-Not Attempted due to Medical Conditions or Safety Concerns. Sit to Stand (QC): 6 Gait Training Distance: 200' Walk 10 feet (QC): 6 Walk 50 ft with 2 Turns(QC): 6 Walk 150 ft (QC): 6 Gait Assistive Device: FWW safe and functional with no deviation Assessment Patient is currently at OF with all gross motor skills and does not require continued skilled PT intervention at this time. PT Short Term Goals Short Term Goals Time Frame: Jun 03, 2023 Roll Left & Right: 6 Sit to lyin Lying to sitting on side of be: 6 Sit to stand: 6 Chair/jox-wi-xiljb transfer: 6 Toilet transfer: 6 Walk 10 feet: 6 Walk 50 feet with two turns: 6 Walk 150 feet: 6 PT Plan Treatment/Plan Treatment Plan: Discontinue PT, goals met Treatment Plan: Education, Functional Activity Marjorie, Functional Strength, Gait, Safety, Therapeutic Exercise, Transfers Treatment Duration: Jun 03, 2023 Frequency: 2 times per week Estimated Hrs Per Day: .25 hour per day Patient and/or Family Agrees t: Yes Time Time In: 941 Time Out: 950 DATE: Jun 03, 2023 Total Billed Treatment Time: 9 Total Billed Treatment 1 visit [facility] 9 min ELEANOR OROZCO PT Jun 03, 2023 10:22
[2023-06-03] MEDS ORDERED: PRD20T PO (12:14)
--- NOTE | 2023-06-03 12:23 | Discharge Summary ---
ARIANE ORONA MD, RESIDENT 06/03/23 1223: Discharge Summary Hospital Course Hospital Course Date of Admission: Jun 01, 2023 at 21:25 Admission Diagnosis : Family Physician/Provider: Miguel Christie DO Date of Discharge: 06/03/23 Discharge Diagnosis: COPD exacerbation Hospital Course: Iza Panda is 67 year old female with a PMH of COPD, CVA, diabetes, HTN, Hyperlipidemia, and a current tobacco smoker who presented to the ED on 06/01 for rt sided rib pain that occurred after a coughing episode. Labs were drawn, meds were administered, and a CT chest without contrast was performed. DuoNeb was administered in the ER for COPD exacerbation and it resolved her wheezing. Due to her being hypoxic on room air she was started on 2L of nasal oxygen. The CT revealed Chronic interstitial and reticular opacities in the peripheral lungs, may be an early fibrosis. No acute pulmonary abnormality is seen. Old right-sided rib fractures. No acute fracture is seen. Ectatic ascending aorta. Enlargement of the main pulmonary artery can be seen with pulmonary hypertension. Adrenal hyperplasia. Pt was admitted as inpatient at 20:21 on 06/01. On 06/02 the pt was experiencing right sided lateral rib pain that was a 8/10 that was described as "being kicked in the ribs". Pt denied any radiation. Movement of her rt UE or taking deep breaths exacerbates her pain. Positive assoc sx incude cough, SOB, GALAVIZ, nausea, and vomiting. Negative assoc sx include abdominal pain and blood in BM or vomit. Last BM was at 0800H and reports it was "normal". She has not eaten breakfast this morning due to vomiting. The pt continued taking her pain medications and using the 2L nasal oxygen. Today, 06/03, the pt is feeling better. The pain meds were reported that they were helping and she did not vomit today. Pain still occurs when she moves. Breathing is easier. Pt is to be discharged today. Pt will be sent home on oxygen to continue using. Labs and Pending Lab Test: Laboratory Tests 06/02/23 15:20: Glucometer 126H 06/02/23 20:25: Glucometer 130H 06/03/23 05:25: White Blood Count 15.2H, Red Blood Count 3.91, Hemoglobin 10.8L, Hematocrit 32L, Mean Corpuscular Volume 83, Mean Corpuscular Hemoglobin 28, Mean Corpuscular Hemoglobin Concent 33, Red Cell Distribution Width 14.7H, Platelet Count 450H, Mean Platelet Volume 10.2, Immature Granulocyte % (Auto) 1, Neutrophils (%) (Auto) 89H, Lymphocytes (%) (Auto) 5L, Monocytes (%) (Auto) 5, Eosinophils (%) (Auto) 0, Basophils (%) (Auto) 0, Neutrophils # (Auto) 13.5H, Lymphocytes # (Auto) 0.8L, Monocytes # (Auto) 0.8, Eosinophils # (Auto) 0.0, Basophils # (Auto) 0.0, Immature Granulocyte # (Auto) 0.1, Sodium Level 126L, Potassium Level 4.6, Chloride Level 89L, Carbon Dioxide Level 28, Anion Gap 9, Blood Urea Nitrogen 18, Creatinine 0.85, Estimat Glomerular Filtration Rate 74, BUN/Creatinine Ratio 21, Glucose Level 117H, Calcium Level 9.4, Corrected Calcium 9.3, Total Bilirubin 0.3, Aspartate Amino Transf (AST/SGOT) 19, Alanine Aminotransferase (ALT/SGPT) 14, Alkaline Phosphatase 81, Total Protein 7.1, Albumin 4.1 06/03/23 05:26: Glucometer 122H Home Meds Active Prednisone 20 Mg Tab 40 Mg PO DAILY 3 Days Reported Ondansetron HCl 4 Mg Tablet 4 Mg PO Q6H PRN Tylenol Extra Strength (Acetaminophen) 500 Mg Tablet 1,000 Mg PO Q6H PRN Melatonin 3 Mg Tablet 3 Mg PO HS PRN Iprat-Albut 0.5-3(2.5) mg/3 ml (Ipratropium/Albuterol Sulfate) 0.5 Mg-3 Mg (2.5 Mg Base)/3 Ml Ampul.neb 3 Ml IH Q6H PRN Hydroxyzine HCl 25 Mg Tablet 25 Mg PO Q6H PRN Menthol 4 % Cream..g. 1 Applic TP Q8H PRN APPLY TO LEFT SHOULDER Metformin HCl 500 Mg Tablet 500 Mg PO BID WITH MEALS Fluticasone-Salmeterol 250-50 (Fluticasone Propion/Salmeterol) 250 Mcg-50 Mcg/Dose Blst.w.dev 1 Puff INH BID Vitamin C (Ascorbic Acid) 250 Mg Tab.chew 500 Mg PO DAILY Sodium Chloride 1,000 Mg Tablet.elsi 1,000 Mg PO DAILY Magnesium (Magnesium Citrate and Oxide) 250 Mg Capsule 250 Mg PO DAILY Loratadine 10 Mg Tablet 10 Mg PO DAILY Levothyroxine Sodium 137 Mcg Tablet 137 Mcg PO DAILY Ferrous Gluconate 240 Mg (27 Mg Iron) Tablet 240 Mg PO DAILY Esomeprazole Magnesium 20 Mg Capsule.dr 40 Mg PO DAILY Clopidogrel (Clopidogrel Bisulfate) 75 Mg Tablet 75 Mg PO DAILY Citalopram HBr (Citalopram Hydrobromide) 20 Mg Tablet 20 Mg PO DAILY [place]-3 EC Softgel ([place]-3/Dha/Epa/Fish Oil) 350 Mg-235 Mg-90 Mg-597 Mg Capsule.dr 2 Each PO DAILY Ibuprofen 200 Mg Tablet 400 Mg PO Q6H PRN Aspirin EC (Aspirin) 81 Mg Tablet.dr 81 Mg PO DAILY Vitamin D3 (Cholecalciferol (Vitamin D3)) 25 Mcg (1000 Unit) Capsule 25 Mcg PO DAILY Multivitamins (Multivitamin) 1 Each Tablet 1 Tab PO DAILY Pioglitazone HCl 30 Mg Tablet 30 Mg PO DAILY Hydrochlorothiazide 25 Mg Tablet 25 Mg PO DAILY Proventil Hfa (Albuterol Sulfate) 6.7 Gm Hfa.aer.ad 2 Puff INH Q6H PRN Lisinopril 40 Mg Tablet 40 Mg PO DAILY HOLD IF SBP IS LESS THAN 110 Assessment/Pt Instructions Please see electronic discharge instructions given to patient. Discharge Instructions Discharge Diet: ADA Diet Activity as Tolerated: Yes Discharge Physical Examination Vital Signs Vital Signs Date Time Temp Pulse Resp B/P (MAP) Pulse Ox O2 Delivery O2 Flow Rate FiO2 06/03/23 10:59 96 Nasal Cannula 2.00 06/03/23 08:21 36.6 72 19 153/83 (106) 06/02/23 04:43 28 General Appearance: No Apparent Distress HEENT: Normal ENT Inspection Respiratory: Chest Non Tender, Lungs Clear, Normal Breath Sounds, No Accessory Muscle Use, No Respiratory Distress Cardiovascular: Regular Rate, Rhythm, No Murmur, Normal Peripheral Pulses Gastrointestinal: Normal Bowel Sounds, Non Tender, Soft Extremity: No Pedal Edema Skin: Normal Color, Warm/Dry Neurologic/Psychiatric: Alert, Oriented x3 Allergies: Coded Allergies: Udmvroc-GVY-EhK Reductase Inhibitor (Verified Allergy, Unknown, 10/09/19) muscle pain meperidine (Verified Allergy, Unknown, 08/16/13) Discharge Summary Date of Admission Jun 01, 2023 at 21:25 Date of Discharge Admission Diagnosis Acute hypoxic respiratory failure Exacerbation of COPD/asthma Right rib pain Plan: Home meds Oxygen SUNNY ANDERSON DO 06/04/23 0618: Discharge Summary Discharge Instructions Discharge Diet: ADA Diet Activity as Tolerated: Yes Discharge Physical Examination General Appearance: No Apparent Distress, WD/WN Allergies: Coded Allergies: Fvcinit-EOB-FoO Reductase Inhibitor (Verified Allergy, Unknown, 10/09/19) muscle pain meperidine (Verified Allergy, Unknown, 08/16/13) ARIANE ORONA MD, RESIDENT Jun 03, 2023 12:23 SUNNY ANDERSON DO Jun 04, 2023 06:18
[2023-06-03 12:29] VITALS: BP 122/59
--- NOTE | 2023-06-03 12:30 | Progress Note ---
ALFRED COPELAND 06/03/23 1229: Progress Note Iza Panda is 67 year old female with a PMH of COPD, CVA, diabetes, HTN, Hyperlipidemia, and a current tobacco smoker who presented to the ED on 06/01 for rt sided rib pain that occurred after a coughing episode. Labs were drawn, meds were administered, and a CT chest without contrast was performed. DuoNeb was administered in the ER for COPD exacerbation and it resolved her wheezing. Due to her being hypoxic on room air she was started on 2L of nasal oxygen. The CT revealed Chronic interstitial and reticular opacities in the peripheral lungs, may be an early fibrosis. No acute pulmonary abnormality is seen. Old right-sided rib fractures. No acute fracture is seen. Ectatic ascending aorta. Enlargement of the main pulmonary artery can be seen with pulmonary hypertension. Adrenal hyperplasia. Pt was admitted as inpatient at 20:21 on 06/01. On 06/02 the pt was experiencing right sided lateral rib pain that was a 8/10 that was described as "being kicked in the ribs". Pt denied any radiation. Movement of her rt UE or taking deep breaths exacerbates her pain. Positive assoc sx incude cough, SOB, GALAVIZ, nausea, and vomiting. Negative assoc sx include abdominal pain and blood in BM or vomit. Last BM was at 0800H and reports it was "normal". She has not eaten breakfast this morning due to vomiting. The pt continued taking her pain medications and using the 2L nasal oxygen. Today, 06/03, the pt is feeling better. The pain meds were reported that they were helping and she did not vomit today. Pain still occurs when she moves. Breathing is easier. Pt is to be discharged today. Pt will be sent home on oxygen to continue using. JUDY ANDERSON DO 06/04/23 0614: Supervisory-Addendum Brief Verification & Attestation Participated in pt care: history, MDM, physical Personally performed: exam, history, MDM, supervision of care Care discussed with: Medical Student Procedures: n/a Results interpretation: Verified all documentation Verification and Attestation of Medical Student E/M Service A medical student performed and documented this service in my presence. I reviewed and verified all information documented by the medical student and made modifications to such information, when appropriate. I personally performed the physical exam and medical decision making. Judy Anderson, Jun 04, 2023,06:14 ALFRED COPELAND Jun 03, 2023 12:29 JUDY ANDERSON DO Jun 04, 2023 06:14
[2023-06-03] MEDS ORDERED: METHYL SALICYLATE TP PRN (15:00)
[2023-06-03] MEDS ORDERED: MENTHOL TP PRN (15:00)
[2023-06-03 15:15] VITALS: BP 171/89
== END 2023-06-03 12:19 ==
LOC: EDUNIT# 18:26 → ER 18:27 → 4TH 21:25 → UNDOADMOB 21:25 → 4TH 21:50 → UNDODISOB 06-03 12:19
PROVIDERS: ADMIT Internal Medicine; ATTEND Internal Medicine
DX: J44.1 Chronic obstructive pulmonary disease with (acute) exacerbation (principal); J96.01 Acute respiratory failure with hypoxia; R07.81 Pleurodynia; M62.830 Muscle spasm of back; F17.290 Nicotine dependence, other tobacco product, uncomplicated
CPT/HCPCS: 71250; 80048; 80053 ×2; 82947 ×2; 85007; 85025 ×2; 85027; 94640 ×3; 94760; 94761; 96372 ×2; 96374; 96375 ×2; 96376; 97162; 97530; 99283; G0378; 36415